=== PATIENT | female | born 1975 | race Caucasian/White ===

== ENCOUNTER 2020-11-03 09:35 | Outpatient (REF) | payer OTHER, SELFPAY ==
--- NOTE | 2020-11-03 09:45 | XR_ITS ---
EXAMINATION: XR CHEST CLINICAL INFORMATION: Shortness of breath COMPARISON: None TECHNIQUE: 2 views of the chest were obtained. FINDINGS: No significant abnormality is noted involving the heart, lungs, mediastinum, bony thorax or soft tissues. XR/XR chest 2V IMPRESSION: No acute disease within the chest.
[2020-11-03 14:01] LABS: Hematocrit 39.9 % (37-47); Hemoglobin 13.1 g/dl (12.0-16.0); Mean Corpuscular HGB Conc 32.8 g/dl (31.0-35.0); Mean Corpuscular Hemoglobin 30.2 pg (27.0-33.0); Mean Corpuscular Volume 91.9 fL (80-98); Mean Platelet Volume 11.2 fL (9.4-12.3); Platelet Count 203 X10*3/uL (160-400); Red Blood Count 4.34 X10*6/uL (4.20-5.50); Red Cell Distribution Width 12.7 % (11.0-16.0); White Blood Count 5.8 X10*3/uL (4.8-10.8)
[2020-11-03 14:14] LABS: D Dimer < 200 NG/ML
[2020-11-03 14:47] LABS: Anion Gap 13 (12-20); Blood Urea Nitrogen 22 mg/dL (9-16); Calcium 9.3 mg/dL (8.4-10.2); Carbon Dioxide 29 mmol/L (22-29); Chloride 102 mmol/L (96-108); Estimated Glomerular Filt Rate > 60; Glucose Random 99 mg/dL (60-115); Potassium 4.6 mmol/l (3.3-5.1); Sodium 139 mmol/L (135-145)
== END 2020-11-03 09:36 | disposition home or self-care (01) ==
LOC: HO.HMGCX 09:35
PROVIDERS: PCP Internal Medicine; Visit Provider Internal Medicine
DX: R06.02 Shortness of breath (principal)
CPT/HCPCS: 36415; 71046; 80048; 85027; 85379

== ENCOUNTER 2020-11-05 08:49 | Outpatient (REF) | payer OTHER, SELFPAY ==
--- NOTE | 2020-11-05 | MM_ITS ---
EXAMINATION: MM SCREENING DIGITAL BREAST TOMOSYNTHESIS, BILATERAL CLINICAL INFORMATION: Screening. Asymptomatic. The lifetime risk of breast cancer based on the Tyrer-Cuzick Model is 10%. COMPARISON: Mammography: 08/15/2019, outside exams 2D images dated 03/29/2017, 11/19/2016, 02/10/2016 ([facility], [place]). TECHNIQUE: Digital breast tomosynthesis is performed in both the craniocaudal and mediolateral oblique views along with computer-aided detection (CAD). Synthesized 2D images are generated from the tomosynthesis. FINDINGS: There are scattered areas of fibroglandular density (ACR BI-RADS breast composition Category b). The left breast shows no developing density or interval mass or architectural abnormality. Neither breast shows abnormal calcifications. The axilla and skin contours are unremarkable. The right MLO tomography is subtle converging radiating lines mid lower quadrant without correlate on CC view. No central epicenter. Finding likely related to summation artifact or incompletely compressed glandular tissue. Patient will be recalled in order to fully characterize and exclude architectural abnormality. Remainder of the right breast is unremarkable. MM/MM tomosynthesis screening BI IMPRESSION: 1. Right: Question of architectural changes lower right breast on MLO tomography, suspect artifact. 2. Left: No mammographic evidence of malignancy. ASSESSMENT: BI-RADS 0: Incomplete - Need Additional Imaging Evaluation RECOMMENDATION: 1. Additional views of the right breast (3-D spot MLO, 3-D ML). 2. Targeted ultrasound if warranted after review of the additional views. 3. Radiology department staff will contact the patient for additional imaging. This patient's information was entered into a reminder system with a target due date for their next mammogram.
== END 2020-11-05 08:50 | disposition home or self-care (01) ==
LOC: HO.MAMMO 08:49
PROVIDERS: PCP Internal Medicine; Visit Provider Internal Medicine
DX: Z12.31 Encounter for screening mammogram for malignant neoplasm of breast (principal)
CPT/HCPCS: 77063; 77067

== ENCOUNTER → 2020-11-18 07:47 | Outpatient (BNV) | payer OTHER, SELFPAY | PROVIDERS: PCP Internal Medicine; Visit Provider Internal Medicine Medical Oncology | DX: Z85.038 Personal history of other malignant neoplasm of large intestine (principal); Z86.718 Personal history of other venous thrombosis and embolism | CPT/HCPCS: 99213; 99214 ==

== ENCOUNTER → 2020-12-02 14:46 | Outpatient (BNVA) | payer OTHER, SELFPAY | PROVIDERS: PCP Internal Medicine; Visit Provider Internal Medicine ==

== ENCOUNTER 2020-12-04 12:47 | Outpatient (REF) | payer OTHER, SELFPAY ==
--- NOTE | 2020-12-04 | MM_ITS ---
EXAMINATION: MM DIAGNOSTIC DIGITAL BREAST TOMOSYNTHESIS, RIGHT CLINICAL INFORMATION: Recall from screening for question of subtle radiating lines mid lower right breast limited to MLO view. TC score 10%. No known family history breast cancer. Personal history colon cancer. COMPARISON: Mammography: 11/05/2020, 08/15/2019, outside exams 2D images dated 03/29/2017, 11/19/2016, 02/10/2016 ([facility], [place]). TECHNIQUE: Digital breast tomosynthesis is performed. 2D images are generated from the tomosynthesis. The following views are obtained: Spot MLO, standard ML FINDINGS: There are scattered areas of fibroglandular density (ACR BI-RADS breast composition Category b). Additional views show no architectural abnormality or converging radiating lines mid lower right breast. There is no mass or architectural abnormality or developing density. Results are discussed with the patient at time of visit. MM/MM tomosynthesis added views R IMPRESSION: Additional views show no significant changes from prior studies. ASSESSMENT: BI-RADS 2: Benign RECOMMENDATION: Routine annual mammography screening. This patient's information was entered into a reminder system with a target due date for their next mammogram.
== END 2020-12-04 12:48 | disposition home or self-care (01) ==
LOC: HO.MAMMO 12:47
PROVIDERS: PCP Internal Medicine; Visit Provider Internal Medicine
DX: R92.8 Other abnormal and inconclusive findings on diagnostic imaging of breast (principal)
CPT/HCPCS: 77061; 77062; 77065; 77066

== ENCOUNTER 2021-01-08 11:21 | Outpatient (REF) | payer OTHER, SELFPAY ==
[2021-01-09 13:26] LABS: COVID-19 Test Negative (Negative)
== END 2021-01-08 11:22 | disposition home or self-care (01) ==
LOC: HO.EMPCOV 11:21
PROVIDERS: Visit Provider Internal Medicine
DX: Z20.822 Contact with and (suspected) exposure to COVID-19 (principal)
CPT/HCPCS: 36415; 87635; C9803

== ENCOUNTER → 2021-01-15 12:58 | Outpatient (REF) | payer OTHER, SELFPAY ==
--- NOTE | 2021-01-15 13:01 | HM_ITS ---
TEST PERFORMED: Cardiac event monitor. INDICATION: Palpitations. ENROLLMENT PERIOD: 01/15/2021 to 02/14/2021 - 30 days. FINDINGS: In the above monitoring period, the underlying rhythm was sinus. The rates ranged from 69 beats per minute to 88 beats per minute. In several of the times when patient had complained of racing and fluttering, underlying rhythm was sinus. There was a rare PAC and PVC noted. During these times, she did mention palpitations. Otherwise, no significant arrhythmias. CONCLUSION: Study positive for one isolated PVC and an isolated PAC, which may be causing her symptoms ( if more frequent at other times when not monitored). Otherwise unremarkable. MD BRIGETTE Rodriguez/EDWAR / [id number] MTDD
--- NOTE | 2021-01-15 13:01 | CA_ITS ---
Transthoracic Echocardiogram Patient (Last, First, Middle): Katlyn Shaikh, Gender: Female Date of : 1975 Age: 45 Procedure Date: 01/15/2021 Procedure Type: Transthoracic Echocardiogram Location: OP Height: 175.26 cm Weight: 83.92 kg BSA: 2.00 m2 Heart Rate: bpm BP: 108 / 58 mmHg Investigator Utility Bill Complaints: BRONSON Metz MD: French Pugh MD Seasoning Mixer: Enrike Nails MD Symptoms: R06.02 - Shortness of breath Study Quality: Fair ECG Rhythm: Sinus Conclusions: - Essentially normal study Findings Left Ventricle Normal left ventricular size, thickness, and systolic function. The visually estimated ejection fraction is between 60-65%. Diastolic function is normal for age. Right Ventricle Normal right ventricular cavity size and systolic function. Atria Both atria are normal in size. Aortic Valve Normal aortic valve structure and function. Mitral Valve Normal mitral valve structure and function. There is trace mitral valve regurgitation. There is no mitral valve stenosis. Pulmonic Valve The pulmonic valve is likely normal. Tricuspid Valve Normal tricuspid valve structure. There is trace tricuspid valve regurgitation. The right ventricular systolic pressure is normal. The right ventricular systolic pressure is 15 mmHg. Normal right atrial pressure. There is no evidence of pulmonary hypertension. Great Vessels All visible segments of the aorta are normal in size. The pulmonary artery was not well visualized. Venous The inferior vena cava is normal in size and collapses greater than 50% with inspiration. Pericardium/Pleural There is no evidence of pericardial effusion. Prior Study Comparison No prior study available for comparison. Measurements 2D Linear Measurements IVSd: 0.85 0.6-0.9/0.6-1.0 cm LVIDd: 5.68 3.9-5.3/4.2-5.9 cm LVIDd Index: 2.84 2.4-3.2/2.2-3.1 cm/m2 LVIDs: 3.67 2.0-3.6 cm LVPWd: 0.89 0.7-1.1 cm Ao Root: 3.70 2.1-3.5 cm LA Diam: 3.30 2.7-3.8/3.0-4.0 cm LAIDs Index: 1.65 1.5-2.3 cm/m2 LV Mass: 234.11 67-162/88-224 g LV Mass Index: 117.05 43-95/49-115 g/m2 LVOT Diam: 2.00 3.0+(-)1.3 cm 2D Systolic Function EF 4C: 62.70 >55% EF 2C: 69.10 >55% EF BiP: 67.30 >55% Mitral Valve MV Pk E: 0.91 MV PK A: 0.67 MV Decel Time: 275.00 E/A: 1.40 E'Lateral: 14.60 E'Medial: 7.64 E/E' Med: 11.90 E/E' Lat: 6.20 PHT: 80.00 MVA PHT: 2.75 Decel [place]: 3.32 Aortic Valve AoV Pk Silvino: 1.56 AoV Mn Silvino: 1.10 AoV VTI: 0.38 AoV Pk Grad: 10.00 Aov Mn Grad: 5.00 JERMAIN Cont.VTI: 2.10 LVOT LVOT Pk Silvino: 1.11 LVOT Mn Silvino: 0.76 LVOT VTI: 0.25 LVOT Pk Grad: 5.00 LVOT Mn Grad: 3.00 LVOT Diam: 2.00 LVOT Area: 3.14 Diastolic Function MV Pk E: 0.91 MV Pk A: 0.67 E/A: 1.40 E'Medial: 7.64 E/E' Med: 11.90 E' Laterial: 14.60 E/E' Lat: 6.20 Tricuspid Valve TR Pk Silvino: 1.72 TR Pk Grad: 12.00 RA Press: 3.00 RVSP: 15.00 Great Vessels Aorta Ao Root-2D: 3.70 2.0-3.7 cm Ao Asc: 3.30 2.1-3.4 cm Ao Arch: 3.00 Updated in Other Vendor System with Status of Final Enrike Nails MD electronically signed on 01/15/2021 3:55:40 PM with status of Final
== END ==
LOC: HO.CARD 12:58
PROVIDERS: Visit Provider Internal Medicine
DX: R06.02 Shortness of breath (principal); R00.2 Palpitations
CPT/HCPCS: 93270; 93272; 93306

== ENCOUNTER → 2021-02-13 08:04 | Outpatient (BNVA) | payer OTHER, SELFPAY | PROVIDERS: Visit Provider Advanced Practice Midwife | DX: N90.89 Other specified noninflammatory disorders of vulva and perineum (principal) | CPT/HCPCS: 56501 ==

== ENCOUNTER → 2021-02-25 15:12 | Outpatient (BNVA) | payer OTHER, SELFPAY | PROVIDERS: PCP Internal Medicine; Visit Provider Internal Medicine ==

== ENCOUNTER → 2021-02-27 08:05 | Outpatient (BNVA) | payer OTHER, SELFPAY | PROVIDERS: PCP Internal Medicine; Visit Provider Advanced Practice Midwife ==

== ENCOUNTER 2021-03-25 11:42 | Outpatient (REF) | payer OTHER, SELFPAY ==
[2021-03-25 15:23] LABS: CT PCR NOT DETECTED (Not Detect.); NG PCR NOT DETECTED (Not Detect.)
[2021-03-26 09:38] LABS: BV Int Neg Control Negative (Negative); BV Int Pos Control Positive (Positive)
== END 2021-03-25 11:43 | disposition home or self-care (01) ==
LOC: HO.LAB 11:42
PROVIDERS: PCP Internal Medicine; Visit Provider Advanced Practice Midwife
DX: N89.8 Other specified noninflammatory disorders of vagina (principal); R10.2 Pelvic and perineal pain
CPT/HCPCS: 87480; 87491; 87510; 87591; 87660

== ENCOUNTER → 2021-05-21 13:01 | Outpatient (BNVA) | payer OTHER, SELFPAY | PROVIDERS: PCP Internal Medicine; Referring Provider Internal Medicine; Visit Provider Obstetrics & Gynecology ==

== ENCOUNTER 2021-05-25 08:22 | Outpatient (REF) | payer OTHER, SELFPAY ==
[2021-05-25 14:20] LABS: Hematocrit 35.9 % (37-47); Mean Corpuscular HGB Conc 33.4 g/dl (31.0-35.0); Mean Corpuscular Hemoglobin 30.4 pg (27.0-33.0); Mean Corpuscular Volume 90.9 fL (80-98); Mean Platelet Volume 10.6 fL (9.4-12.3); Platelet Count 181 X10*3/uL (160-400); Red Blood Count 3.95 X10*6/uL (4.20-5.50); Red Cell Distribution Width 12.3 % (11.0-16.0); White Blood Count 5.3 X10*3/uL (4.8-10.8)
[2021-05-25 15:02] LABS: TSH reflex Free T4 0.96 uIU/mL (0.32-4.0)
[2021-05-25 15:19] LABS: HCG Quantitative < 2 mIU/mL
== END 2021-05-25 08:23 | disposition home or self-care (01) ==
LOC: HO.LAB 08:22
PROVIDERS: PCP Internal Medicine; Visit Provider Obstetrics & Gynecology
DX: N93.9 Abnormal uterine and vaginal bleeding, unspecified (principal)
CPT/HCPCS: 36415; 84443; 84702; 85027

== ENCOUNTER 2021-06-04 07:49 | Outpatient (REF) | payer OTHER, SELFPAY ==
[2021-06-04 09:02] LABS: Alanine Aminotransferase 16 U/L (0-31); Albumin Level 4.6 g/dL (3.5-5.0); Alkaline Phosphatase 49 U/L (39-117); Aspartate Amino Transferase 17 U/L (5-31); Bilirubin Direct 0.3 mg/dL (0.0-0.5); Bilirubin Total 0.8 mg/dL (0.0-1.0); Total Protein 7.3 g/dL (6.5-8.0)
== END 2021-06-04 07:50 | disposition home or self-care (01) ==
LOC: HO.LAB 07:49
PROVIDERS: PCP Internal Medicine; Visit Provider Podiatrist
DX: B35.1 Tinea unguium (principal)
CPT/HCPCS: 36415; 80076

== ENCOUNTER 2021-06-11 10:53 | Outpatient (REF) | payer OTHER, SELFPAY ==
--- NOTE | ~2021-06-11 | US_ITS ---
EXAMINATION: PELVIC ULTRASOUND CLINICAL INFORMATION: Abnormal uterine vaginal bleeding COMPARISON: Previous pelvic ultrasound July 2020 TECHNIQUE: Transabdominal and transvaginal pelvic ultrasound was performed. Transvaginal exam was performed for better visualization of the uterus and ovaries. FINDINGS: The uterus is anteverted and measures 7 x 3.2 x 4.5 cm in dimension. There is an IUD in the uterus in satisfactory position. The endometrium does not appear thickened measuring 0.5 cm. No focal uterine lesion is seen. There are nabothian cysts in the cervix. The right ovary is upper normal in size and measures 3.9 x 2.4 x 2.9 cm. there is a 2.5 x 2.4 x 2.6 cm simple right ovarian cyst. The left ovary is normal in size and measures 3 x 2 x 2.5 cm. There are 2 simple left ovarian cysts measuring 1.8 x 1.5 x 2.7 cm and 1.7 x 1.4 x 1.6 cm. There is no fluid in the pelvis. US/US pelvic and transvaginal IMPRESSION: IUD in the uterus in satisfactory position. Bilateral ovarian simple cysts, largest on the right measuring 2.5 x 2.4 x 2.6 cm.
== END 2021-06-11 10:54 | disposition home or self-care (01) ==
LOC: HO.US 10:53
PROVIDERS: Visit Provider Obstetrics & Gynecology
DX: N93.9 Abnormal uterine and vaginal bleeding, unspecified (principal)
CPT/HCPCS: 76830; 76856

== ENCOUNTER 2021-06-23 14:00 | Outpatient (REF) | payer OTHER, SELFPAY | END 2021-06-23 14:01 | disposition home or self-care (01) | LOC: HO.LAB 14:00 | PROVIDERS: PCP Internal Medicine; Visit Provider Obstetrics & Gynecology | DX: N92.1 Excessive and frequent menstruation with irregular cycle (principal) | CPT/HCPCS: 58100; 88305 ==

== ENCOUNTER → 2021-07-07 15:00 | Outpatient (BNVA) | payer OTHER, SELFPAY | PROVIDERS: Visit Provider Obstetrics & Gynecology | DX: N92.1 Excessive and frequent menstruation with irregular cycle (principal) | CPT/HCPCS: 58100 ==

== ENCOUNTER → 2021-07-29 15:40 | Outpatient (BNVA) | payer OTHER, SELFPAY | PROVIDERS: Visit Provider Obstetrics & Gynecology ==

== ENCOUNTER 2021-10-10 13:12 | Outpatient (REF) | payer OTHER, SELFPAY | END 2021-10-10 13:13 | disposition home or self-care (01) | LOC: HO.LNP 13:12 | PROVIDERS: Visit Provider Physician Assistant Medical | DX: Z20.822 Contact with and (suspected) exposure to COVID-19 (principal) | CPT/HCPCS: U0003; U0005 ==

== ENCOUNTER 2021-12-07 07:33 | Outpatient (REF) | payer OTHER, SELFPAY ==
--- NOTE | ~2021-12-07 | MM_ITS ---
EXAMINATION: MM SCREENING DIGITAL BREAST TOMOSYNTHESIS, BILATERAL CLINICAL INFORMATION: Screening. Asymptomatic. The lifetime risk of breast cancer based on the Tyrer-Cuzick Model is 11%. COMPARISON: Mammography: 12/04/2020, 10/26/2020, 08/15/2019; outside exam 03/29/2017 ([facility]). TECHNIQUE: Digital breast tomosynthesis is performed in both the craniocaudal and mediolateral oblique views along with computer-aided detection (CAD). Synthesized 2D images are generated from the tomosynthesis. FINDINGS: There are scattered areas of fibroglandular density (ACR BI-RADS breast composition Category b). There are no significant masses, abnormal calcifications, or other abnormalities. Parenchymal pattern is similar to prior studies. There is no developing density or architectural abnormality. The axilla and skin contours are unremarkable. No significant changes. MM/MM tomosynthesis screening BI IMPRESSION: No mammographic evidence of malignancy. ASSESSMENT: BI-RADS 1: Negative RECOMMENDATION: Routine annual mammography screening. This patient's information was entered into a reminder system with a target due date for their next mammogram.
== END 2021-12-07 07:34 | disposition home or self-care (01) ==
LOC: HO.MAMMO 07:33
PROVIDERS: PCP Internal Medicine; Visit Provider Internal Medicine
DX: Z12.31 Encounter for screening mammogram for malignant neoplasm of breast (principal)
CPT/HCPCS: 77063; 77067

== ENCOUNTER 2022-05-06 13:56 | Outpatient (REF) | payer OTHER, SELFPAY ==
--- NOTE | ~2022-05-06 | XR_ITS ---
EXAMINATION: XR CHEST CLINICAL INFORMATION: Chronic fatigue, unspecified. COMPARISON: Chest radiographs 11/03/2020. TECHNIQUE: 2 views of the chest were obtained. FINDINGS: Lungs are clear. No airspace consolidation or effusion. Heart size normal. The hilar and mediastinal contours are normal. No acute bony abnormality. Again, there is mild loss of height midthoracic vertebral body. No paraspinal soft tissue swelling. No disc narrowing or spondylolisthesis. XR/XR chest 2V IMPRESSION: Unremarkable examination.
[2022-05-06 14:22] LABS: Hematocrit 38.1 % (37.0-47.0); Hemoglobin 12.8 g/dl (12.0-16.0); Mean Corpuscular HGB Conc 33.6 g/dl (31.0-35.0); Mean Corpuscular Hemoglobin 30.4 pg (27.0-33.0); Mean Corpuscular Volume 90.5 fL (80.0-98.0); Mean Platelet Volume 10.1 fL (9.4-12.3); Platelet Count 215 X10*3/uL (160-400); Red Blood Count 4.21 X10*6/uL (4.20-5.50); Red Cell Distribution Width 12.7 % (11.0-16.0); White Blood Count 5.5 X10*3/uL (4.8-10.8)
[2022-05-06 14:33] LABS: D Dimer High Sensitivity < 150 NG/ML
[2022-05-06 14:53] LABS: Alanine Aminotransferase 20 U/L (0-31); Albumin Level 4.6 g/dL (3.5-5.0); Alkaline Phosphatase 55 U/L (39-117); Anion Gap 10 (12-20); Aspartate Amino Transferase 18 U/L (5-31); Bilirubin Direct 0.3 mg/dL (0.0-0.5); Bilirubin Total 0.8 mg/dL (0.0-1.0); Blood Urea Nitrogen 13 mg/dL (9-16); Calcium 9.4 mg/dL (8.4-10.2); Carbon Dioxide 28 mmol/L (22-29); Chloride 103 mmol/L (96-108); Estimated Glomerular Filt Rate > 60; Glucose Random 120 mg/dL (60-115); Iron 100 mcg/dL (30-160); Percent Iron Saturation 27 % (15-50); Potassium 4.4 mmol/L (3.3-5.1); Sodium 137 mmol/L (135-145); Total Iron Binding Capacity 373 mcg/dL (228-428); Total Protein 7.4 g/dL (6.5-8.0); Unsaturated Iron Binding 273 ug/dL
[2022-05-06 15:05] LABS: TSH reflex Free T4 1.06 uIU/mL (0.32-4.0)
[2022-05-06 15:39] LABS: Folate 15.3 ng/mL (> or = 4.0); Vitamin B12 417 pg/mL (200-900)
[2022-05-07 17:07] LABS: Lyme Abs Screen <0.90 index
== END 2022-05-06 13:57 | disposition home or self-care (01) ==
LOC: HO.LAB 13:56
PROVIDERS: Visit Provider Physician Assistant
DX: R07.81 Pleurodynia (principal); D50.9 Iron deficiency anemia, unspecified; R53.82 Chronic fatigue, unspecified; U09.9 Post COVID-19 condition, unspecified; E53.8 Deficiency of other specified B group vitamins
CPT/HCPCS: 36415; 71046; 80048; 80076; 82607; 82746; 83540; 84443; 85027; 85379; 86617; 86618

== ENCOUNTER 2022-05-31 14:53 | Outpatient (REF) | payer OTHER, SELFPAY ==
[2022-05-31 16:36] LABS: Syphilis Screen Nonreactive (Nonreactive)
[2022-06-01 07:11] LABS: HBsAGNum1 0.46 S/CO (0.00-0.99); HIV AB/AG Nonreactive (Nonreactive); HIV Num 1 0.05 S/CO (0.00-0.99); Hepatitis B Surface Antigen Negative (Negative); ~HepC Num1 0.06 S/CO (0.00-0.79); ~Hepatitis C Antibody Nonreactive (Nonreactive)
[2022-06-01 09:10] LABS: BV Int Neg Control Negative (Negative); BV Int Pos Control Positive (Positive)
[2022-06-01 09:53] LABS: CT PCR NOT DETECTED (Not Detect.)
[2022-06-01 09:54] LABS: NG PCR NOT DETECTED (Not Detect.)
== END 2022-05-31 14:54 | disposition home or self-care (01) ==
LOC: HO.LAB 14:53
PROVIDERS: PCP Internal Medicine; Visit Provider Obstetrics & Gynecology
DX: Z11.3 Encounter for screening for infections with a predominantly sexual mode of transmission (principal); Z11.4 Encounter for screening for human immunodeficiency virus [HIV]; Z20.2 Contact with and (suspected) exposure to infections with a predominantly sexual mode of transmission
CPT/HCPCS: 36415; 86780; 86803; 87340; 87389; 87480; 87491; 87510; 87591; 87660

== ENCOUNTER 2022-07-23 06:59 | Outpatient (REF) | payer OTHER, SELFPAY ==
--- NOTE | ~2022-07-23 | XR_ITS ---
EXAMINATION: XR SHOULDER, RIGHT CLINICAL INFORMATION: Pain. COMPARISON: None TECHNIQUE: AP external rotation, Grashey, scapular Y, and axillary views of the right shoulder. FINDINGS: The bones and soft tissues are normal. No fracture. Glenohumeral and acromioclavicular alignment is anatomic with normal joint space. No abnormal soft tissue calcifications. XR/XR shoulder RT min 2V IMPRESSION: Normal right shoulder.
--- NOTE | ~2022-07-23 | XR_ITS ---
EXAMINATION: XR WRIST, RIGHT CLINICAL INFORMATION: Pain. COMPARISON: None TECHNIQUE: PA, lateral, and oblique views of the right wrist are submitted, together with a dedicated navicular view. FINDINGS: The bones and soft tissues are normal. No fracture. Alignment is anatomic with normal joint spaces. No erosions or abnormal soft tissue calcifications. XR/XR wrist RT 2V IMPRESSION: Normal right wrist.
[2022-07-26 14:41] LABS: Cyclic Citrullinated Peptide <16 UNITS
[2022-07-26 23:21] LABS: Anti DNA DS Antibody <1 IU/mL
[2022-07-27 02:57] LABS: CRP High Sensitivity >10.0 mg/L
[2022-07-27 15:21] LABS: Anti Nuclear Antibody Screen NEGATIVE (NEGATIVE)
== END 2022-07-23 07:00 | disposition home or self-care (01) ==
LOC: HO.XRAY 06:59
PROVIDERS: PCP Internal Medicine; Visit Provider Internal Medicine
DX: M25.531 Pain in right wrist (principal); M25.511 Pain in right shoulder
CPT/HCPCS: 36415; 73030; 73100; 86038; 86039; 86141; 86200; 86225

== ENCOUNTER 2022-07-29 08:17 | Outpatient (REF) | payer OTHER, SELFPAY ==
--- NOTE | 2022-07-29 08:20 | EMG_ITS ---
Right median and ulnar motor and sensory studies were performed. Right radial sensory study was performed and paraspinal muscles were tested with a needle. IMPRESSION: 1. Mild right median neuropathy across carpal tunnel. 2. Mild right ulnar neuropathy across cubital tunnel. MD BYRON Ca/EDWAR / [id number]
== END 2022-07-29 08:18 | disposition home or self-care (01) ==
LOC: HO.NEURO 08:17
PROVIDERS: Visit Provider Internal Medicine
DX: R20.2 Paresthesia of skin (principal)
CPT/HCPCS: 95886; 95909

== ENCOUNTER 2022-08-19 07:10 | Outpatient (REF) | payer OTHER, SELFPAY ==
[2022-08-19 07:17] LABS: MANUAL DIFF FLAG NO
[2022-08-19 07:48] LABS: Basophils Percent Auto 0.6 % (0-2); Eosinophils Percent Auto 0.6 % (0-4); Hematocrit 38.1 % (37.0-47.0); Hemoglobin 12.8 g/dl (12.0-16.0); Imm Gran Abs Auto 0.01 X10*3/uL (0.00-0.03); Imm Gran Pct Auto 0.3 % (0.0-0.4); Lymphocytes Absolute Auto 0.7 X10*3/uL (1.2-4.9); Lymphocytes Percent Auto 18.8 % (20-40); Mean Corpuscular HGB Conc 33.6 g/dl (31.0-35.0); Mean Corpuscular Hemoglobin 30.2 pg (27.0-33.0); Mean Corpuscular Volume 89.9 fL (80.0-98.0); Mean Platelet Volume 10.5 fL (9.4-12.3); Monocytes Absolute Auto 0.4 X10*3/uL (0.1-1.2); Monocytes Percent Auto 11.9 % (2-11); Neutrophils Absolute Auto 2.5 x10*3/uL (2.0-8.3); Neutrophils Percent Auto 67.8 % (45-73); Platelet Count 148 X10*3/uL (160-400); Red Blood Count 4.24 X10*6/uL (4.20-5.50); Red Cell Distribution Width 12.7 % (11.0-16.0); White Blood Count 3.6 X10*3/uL (4.8-10.8)
[2022-08-19 08:10] LABS: Appearance Urine Clear; Color Urine Yellow; Glucose Urine UA Negative (Negative); Leukocyte Esterase Urine Trace (Negative); Nitrite Urine Negative (Negative); Specific Gravity - Urine 1.015 (1.005-1.025); UMIC TRIGGER UA YES; Urine Blood Negative (Negative); Urine Ketones Negative (Negative); Urine Protein Negative (Neg-Trace)
[2022-08-19 08:14] LABS: Alanine Aminotransferase 21 U/L (0-31); Albumin Level 4.7 g/dL (3.5-5.0); Alkaline Phosphatase 51 U/L (39-117); Anion Gap 16 (12-20); Aspartate Amino Transferase 20 U/L (5-31); Blood Urea Nitrogen 15 mg/dL (9-16); C Reactive Protein 0.11 mg/dL (< or = 0.50); Calcium 9.4 mg/dL (8.4-10.2); Carbon Dioxide 25 mmol/L (22-29); Chloride 101 mmol/L (96-108); Estimated Glomerular Filt Rate > 60; Glucose Random 103 mg/dL (60-115); Potassium 4.2 mmol/L (3.3-5.1); Rheumatoid Factor < 15.0 IU/mL (<15.0); Sodium 138 mmol/L (135-145); Total Protein 7.4 g/dL (6.5-8.0)
[2022-08-19 08:16] LABS: Bacteria Urine None Seen (None Seen); Hyaline Casts Urine 0-2 /LPF (0-2); RBC Urine 0-2 /HPF (0-2); WBC Urine 0-5 /HPF (0-5)
[2022-08-19 08:36] LABS: Erythrocyte Sedimentation Rate 7 MM/HR (0-20)
[2022-08-19 09:15] LABS: Creatinine Urine 90.76 mg/dL; Total Protein Urine Random < 7 mg/dL (<12)
[2022-08-21 11:28] LABS: Complement C3 94 mg/dL (83-193)
[2022-08-24 14:22] LABS: Antibody to SS-A Antigen <1.0 NEG AI (<1.0 NEG); Antibody to SS-B Antigen <1.0 NEG AI (<1.0 NEG); SM/Ribonucleoprotein Ab <1.0 NEG AI (<1.0 NEG); Smith Protein <1.0 NEG AI (<1.0 NEG)
[2022-08-24 14:32] LABS: IgA 362 mg/dL (47-310); IgG 1115 mg/dL (600-1640); IgM 145 mg/dL (50-300)
[2022-08-24 23:21] LABS: Prot Elec - Albumin 4.5 g/dL (3.8-4.8); Prot Elec - Alpha1 0.2 g/dL (0.2-0.3); Prot Elec - Alpha2 0.6 g/dL (0.5-0.9); Prot Elec - Beta 1 0.5 g/dL (0.4-0.6); Prot Elec - Beta 2 0.3 g/dL (0.2-0.5); Prot Elec - Total Protein 7.2 g/dL (6.1-8.1)
[2022-08-30 18:11] LABS: EJ Autoantibodies NOT DETECTED (NOT DETECTED); JO-1 Antibody <1.0 NEG AI (<1.0 NEGATIVE); MI 2 Autoantibodies NOT DETECTED (NOT DETECTED); OJ Autoantibodies NOT DETECTED (NOT DETECTED); PL 12 Autoantibodies NOT DETECTED (NOT DETECTED); PL 7 Autoantibodies NOT DETECTED (NOT DETECTED)
== END 2022-08-19 07:11 | disposition home or self-care (01) ==
LOC: HO.LAB 07:10
PROVIDERS: PCP Internal Medicine; Visit Provider Student in an Organized Health Care Education/Training Program
DX: M25.50 Pain in unspecified joint (principal); I82.402 Acute embolism and thrombosis of unspecified deep veins of left lower extremity; M79.10 Myalgia, unspecified site; Z23 Encounter for immunization
CPT/HCPCS: 36415; 80053; 81001; 82550; 82784; 84156; 84165; 85025; 85652; 86140; 86160; 86235; 86334; 86431; 90686

== ENCOUNTER 2022-11-03 07:17 | Day surgery (SDC) | payer OTHER, SELFPAY ==
--- NOTE | 2022-11-03 06:16 | MHC.SHP ---
Pre-Procedural Eval Section A Date of Service: 11/03/22 Section B Chief Complaint: Anemia, Details of Present Illness: hx of anemia, abdominal pain, abnormal bowel habits Relevant Family History (Specify if Yes): No Relevant Social History: Other (specify) (vaping) Present Medications: see Short Stay Collaborative assessment Medical History: Significant History (Breast pain Colon cancer COVID-19 DVT (deep venous thrombosis) PAC (premature atrial contraction) PVC (premature ventricular contraction) Shortness of breath) History of Previous Operations: Relevant previous surgery/procedure and date(s) (H/O knee surgery History of colon surgery) Allergies: Allergies Allergy/AdvReac Type Severity Reaction Status Date / Time latex [LATEX] Allergy Unknown RASH Verified 10/06/22 16:15 levofloxacin [From LEVAQUIN] Allergy Unknown AGITATION Verified 10/06/22 16:15 morphine [MORPHINE] Allergy Unknown HEADACHES Verified 10/06/22 16:15 shrimp [SHRIMP] Allergy Unknown HIVES Verified 10/06/22 16:15 Sulfa (Sulfonamide Allergy Unknown HIVES Verified 10/06/22 16:15 Antibiotics) [SULFA (SULFONAMIDE ANTIBIOTICS)] Review of Systems Sugical H&P ROS: Negative: Constitution, Cardiovascular, Respiratory, Neurological, Psychiatric, Hem-Onc, Allergic/Immunologic, Gastrointestinal, Genitourinary, Musculoskeletal, Integumentary, Endocrine and Eyes/Ears/Nose/Throat Exam Surgical H&P Exam: Normal: HEENT, Normal: Heart, Normal: Lungs, Normal: Extremities, Normal: Skin and Normal: Neurological and Significant Findings: Abdomen (mildyl tender upper abdomen) Plan Diagnosis/Plan: Unchanged I have reviewed the history and physical and performed a pertinent physical examination on my patient. No changes have occurred unless specified. EGD and colonoscopy for assessment of sx. Time Spent With Patient Time: Total time managing care of this patient today ____ minutes.
[2022-11-03 07:40] VITALS: BMI 27.1
[2022-11-03 07:42] LABS: UPreg QC Valid YES; Urine Pregnancy NEGATIVE (NEGATIVE)
[2022-11-03 07:55] VITALS: BP 122/79; PULSE 66; RESP 18; TEMP 36.8; O2SAT 100
[2022-11-03 07:57] VITALS: BMI 27.1
--- NOTE | 2022-11-03 08:13 | P.CONAN_ITS ---
[facility] Active Problems Active Problems: All Active Problems (Updated 10/06/22 @ 16:18 by Navneet Anguiano PA-C) Sinus infection (Acute) Myalgia (Acute) Right wrist pain (Acute) Paresthesia of both hands (Acute) Polyarthralgia (Acute) Right shoulder pain (Acute) Screen for STD (sexually transmitted disease) (Acute) Retained tampon (Acute) Pleuritic chest pain (Acute) COVID-19 long hauler manifesting chronic fatigue (Acute) COVID-19 (Acute) Conjunctivitis (Acute) Metrorrhagia (Acute) Well woman exam (Acute) Shortness of breath (Acute) Breast pain (Acute) Colon cancer (Acute) Left leg DVT (Acute) Heart palpitations (Acute) PVC (premature ventricular contraction) (Acute) PAC (premature atrial contraction) (Acute) Past Medical History Medical History Breast pain Colon cancer COVID-19 DVT (deep venous thrombosis) PAC (premature atrial contraction) PVC (premature ventricular contraction) Shortness of breath Family History Family History Mother High blood pressure COPD (chronic obstructive pulmonary disease) History of four vessel coronary artery bypass graft Mental health disorder Father High blood pressure Family history of problems with anesthesia: No Surgical History Surgical History H/O knee surgery History of colon surgery History of Problems with Anesthesia: No Social History Social History Housing: House Alcohol intake: current Alcohol intake frequency: holidays/special occasions only Alcohol type: wine Patient Tobacco Use Status: Former Tobacco user Quit Date: 13 years ago Tobacco use type: Smokeless Tobacco e-Cigarette/Vaping Use: Currently Using Date Education Initiated: 11/03/22 Second Hand Smoke Exposure: No Use of substances other than those prescribed or required for medical reasons: No Are you DNR?: No Advance Directives: No Advance Directives Information Provided: Yes service: No Current occupational status: employed 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 Cognitive needs: No Hearing needs: No Vision needs: No Meds Allergies Allergy/AdvReac Type Severity Reaction Status Date / Time latex [LATEX] Allergy Unknown RASH Verified 10/06/22 16:15 levofloxacin [From LEVAQUIN] Allergy Unknown AGITATION Verified 10/06/22 16:15 morphine [MORPHINE] Allergy Unknown HEADACHES Verified 10/06/22 16:15 shrimp [SHRIMP] Allergy Unknown HIVES Verified 10/06/22 16:15 Sulfa (Sulfonamide Allergy Unknown HIVES Verified 10/06/22 16:15 Antibiotics) [SULFA (SULFONAMIDE ANTIBIOTICS)] Active Medications: Current Medications Lactated Ringer's (Lr) 1,000 mls @ 100 mls/hr IVCONT .Q10H [facility] Home Medications Medication Instructions Recorded Confirmed Last Taken Type cholestyramine (with sugar) 4 gram 4 g PO DAILY 05/19/21 10/06/22 Unknown History powder for susp in a packet fluticasone propionate 50 1 spray intranasal DAILY PRN Nasal 05/19/21 10/06/22 Unknown History mcg/actuation nasal Congestion spray,suspension levonorgestrel 20 mcg/24 hours (8 20 mcg intrauterine DIRECTED 05/21/21 10/06/22 Unknown History yrs) 52 mg intrauterine device contraception (Mirena) rivaroxaban 20 mg tablet 20 mg PO DAILY PRN 08/18/22 10/06/22 Unknown History fexofenadine-pseudoephedrine ER 1 tab PO BEDTIME 09/23/22 10/06/22 Unknown History 180 mg-240 mg tablet,ext.release 24 hr (Keeley-D 24 Hour) Exam Exam Date and Time: November 03, 2022 0813 Height,Weight and Vital Signs: Height 5 ft 9 in Weight 83.461 kg Last Vital Signs Temp 98.2 F 11/03/22 07:55 Pulse 66 11/03/22 07:55 Resp 18 11/03/22 07:55 BP 122/79 11/03/22 07:55 Pulse Ox 100 11/03/22 07:55 O2 Del Method 11/03/22 07:55 Pertinent Lab Results Pertinent Lab Results: Laboratory Tests 11/03/22 07:27 Urine Test NEGATIVE Airway Mallampati Class: II TM Dist: >3cm Neck ROM: Full Assessment and Plan Assessment Anesthesia Assessment: Anesthesia Plan Discussed and Chart Reviewed Final Anesthetic Review Family History of Problems with Anesthesia: No History of Problems with Anesthesia: No NPO: Yes ASA Class: II Final Preanesthetic Review: No Changes in Pt Med Stat, Meds/Allgs Chart Reviewed, Consent Obtained/Reviewed and Anes Risks/Benef Reviewed Patient Risk: Low Procedure Risk: Low Anesthetic Plan Anesthetic Plan: MAC: Disposition: Standard PACU
[2022-11-03] MEDS: Lactated Ringers 1,000 ML 100 ML IVCONT (08:20)
--- NOTE | 2022-11-03 08:45 | W.PM.OPN ---
Operative Note Operative Note Date of Service: 11/03/22 Narrative: Operative Information Procedure Description: EGD, Colonoscopy Indication: anemia, abdominal pain, abn bowel habits, rectal bleeding Anesthesia: MAC FLEXIBLE TRANSORAL UPPER GASTROINTESTINAL ENDOSCOPY AND COLONOSCOPY PROCEDURE NOTE UPPER ENDOSCOPY Consent: Indications for the procedure and potential complications of bleeding, perforation, reaction to medications and missed diagnosis were discussed with the patient and informed consent was obtained. Instrument: Olympus GIF H 190 J mid size upper endoscope Monitoring: Vital signs and clinical assessment, continuous EKG monitoring, Pulse oximetry, Carbon Dioxide monitoring and blood pressure monitoring were done throughout the procedure. Procedure: The patient was placed in the left lateral decubitis position and pre-procedure medications were administered and a bite block was placed. The endoscope was inserted into the mouth and advanced under direct vision to the third part of duodenum. A careful inspection was made as the upper endoscope was withdrawn including a retroflexed examination of the proximal stomach; Findings and interventions are described below. Findings: Larynx:normal Esophagus: GE junction at 40 cm, diaphragm hiatus at 40 cm, mild esophagitis at GEJ, bx taken Stomach: Normal mucosa. Biopsies were obtained. Grade 2 flap valve on retroflexed examination of the cardia. Few fundic gland polyps noted. Duodenum: Normal bulb and descending duodenum, bx taken Intervention: Biopsies as noted above COLONOSCOPY Instrument: Olympus variable stiffness pediatric scope 190L Colonoscopy Monitoring: Vital signs and clinical assessment, continuous EKG monitoring, Pulse oximetry, Carbon Dioxide monitoring and blood pressure monitoring were done throughout the procedure. Colon withdrawal time was 10 minutes. Procedure: The patient was placed in the left lateral decubitis position and pre-procedure medications were administered. After a digital rectal examination of the ano-rectum, the video colonoscope was inserted into the rectum and advanced through the colon to the cecum/TI. The colonoscope was slowly withdrawn in a retrograde panoramic fashion and the colon mucosa was carefully examined including a retroflexed view of the rectum. Findings and interventions are described below. Procedure Difficulty: easy Findings: Terminal Ileum-normal mild melanosis coli Cecum:normal Ascending Colon: x2 sessile polyps 10-12 mm removed with cold snare, one of these was not retrieved Transverse Colon -normal Descending Colon:normal colonic anastomosis: normal, few tics noted, some extrinsic compression of colon noted Rectum: Retroflexion with small internal hemorrhoids, grade I with red krueger Anorectum - normal Colon preparation: [place] Bowel Preparation Scale Right colon; 2 Transverse colon: 3 Left colon; 2 (0 = Unprepared colon segment with mucosa not seen due to solid stool that cannot be cleared. 1 = Portion of mucosa of the colon segment seen, but other areas of the colon segment not well seen due to staining, residual stool and/or opaque liquid. 2 = Minor amount of residual staining, small fragments of stool and/or opaque liquid, but mucosa of colon segment seen well. 3 = Entire mucosa of colon segment seen well with no residual staining, small fragments of stool or opaque liquid) Impression and Post Procedure Diagnosis: Endoscopy Findings: mild esophagitis fundic gland polyps Colonoscopy Findings: polyps internal hemorrhoids diverticular disease melanosis coli Plan: Await Pathology results Repeat Colonoscopy in 2-3 years or earlier if clinically indicated High fiber diet leaflet avoid straining at stool, epsom salts and sitz bath, anusol supps or cream, if rectal bleeding persists then refer Dr Dooley Above findings were reviewed with the patient and relevant handouts were provided if indicated.
[2022-11-03 09:19] VITALS: BP 103/46; PULSE 91; RESP 18; TEMP 36.1; O2SAT 100
[2022-11-03 09:34] VITALS: BP 114/72; PULSE 83; RESP 18; TEMP 36.3; O2SAT 100
== END 2022-11-03 10:08 | disposition home or self-care (01) ==
PROVIDERS: Anesthesiology; PCP Internal Medicine; Visit Provider Internal Medicine Gastroenterology
PROC: (CPT 45385; principal; 2022-11-03 08:30)
DX: D64.9 Anemia, unspecified (principal); Z85.038 Personal history of other malignant neoplasm of large intestine; D12.2 Benign neoplasm of ascending colon; K62.5 Hemorrhage of anus and rectum; R19.4 Change in bowel habit; K57.30 Diverticulosis of large intestine without perforation or abscess without bleeding; K64.0 First degree hemorrhoids; K63.89 Other specified diseases of intestine; Z98.0 Intestinal bypass and anastomosis status; R10.9 Unspecified abdominal pain; K20.80 Other esophagitis without bleeding; K31.7 Polyp of stomach and duodenum; K44.9 Diaphragmatic hernia without obstruction or gangrene; I82.4Z2 Acute embolism and thrombosis of unspecified deep veins of left distal lower extremity; I49.1 Atrial premature depolarization; I49.3 Ventricular premature depolarization; R06.02 Shortness of breath; Z79.51 Long term (current) use of inhaled steroids; Z79.899 Other long term (current) drug therapy; Z91.040 Latex allergy status; Z88.2 Allergy status to sulfonamides; Z88.8 Allergy status to other drugs, medicaments and biological substances; Z86.16 Personal history of COVID-19; Z87.891 Personal history of nicotine dependence
CPT/HCPCS: 45385; 43239; 81025; 88305; 88342

== ENCOUNTER → 2022-11-12 10:16 | Outpatient (BNVA) | payer OTHER, SELFPAY | PROVIDERS: PCP Internal Medicine; Visit Provider Internal Medicine Gastroenterology | DX: Z13.89 Encounter for screening for other disorder (principal) ==

== ENCOUNTER → 2022-11-29 09:35 | Outpatient (BNVA) | payer OTHER, SELFPAY | PROVIDERS: PCP Internal Medicine | DX: Z13.89 Encounter for screening for other disorder (principal) | CPT/HCPCS: 36415; 84450; 84460; 86803; 87389; 99214 ==

== ENCOUNTER → 2022-12-01 09:30 | Outpatient (BNVA) | payer OTHER, SELFPAY | PROVIDERS: PCP Internal Medicine; Visit Provider Physician Assistant Medical | DX: Z13.89 Encounter for screening for other disorder (principal) | CPT/HCPCS: 99213 ==

== ENCOUNTER 2022-12-07 10:38 | Outpatient (REF) | payer OTHER, SELFPAY ==
[2022-12-07 11:09] LABS: Appearance Urine Clear; Color Urine Yellow; Glucose Urine UA Negative (Negative); Leukocyte Esterase Urine Negative (Negative); Nitrite Urine Negative (Negative); Specific Gravity - Urine <= 1.005 (1.005-1.025); Urine Blood Negative (Negative); Urine Ketones Negative (Negative); Urine Protein Negative (Neg-Trace)
== END 2022-12-07 10:39 | disposition home or self-care (01) ==
LOC: HO.LAB 10:38
PROVIDERS: PCP Internal Medicine; Visit Provider Internal Medicine
DX: N39.0 Urinary tract infection, site not specified (principal)
CPT/HCPCS: 81003

== ENCOUNTER 2022-12-09 07:40 | Outpatient (REF) | payer OTHER, SELFPAY ==
--- NOTE | ~2022-12-09 | MM_ITS ---
EXAMINATION: MM SCREENING DIGITAL BREAST TOMOSYNTHESIS, BILATERAL CLINICAL INFORMATION: Screening. Asymptomatic. The lifetime risk of breast cancer based on the Tyrer-Cuzick Model is 9.8%. COMPARISON: Mammography: 12/07/2021 and studies dating back to 02/10/2016. TECHNIQUE: Digital breast tomosynthesis is performed in both the craniocaudal and mediolateral oblique views along with computer-aided detection (CAD). Synthesized 2D images are generated from the tomosynthesis. FINDINGS: The breasts are heterogeneously dense, which may obscure small masses (ACR BI-RADS breast composition Category c). LEFT BREAST: The left breast has a stable parenchymal pattern without new abnormal dominant mass or suspicious grouping of microcalcifications. RIGHT BREAST: Within the deep central aspect on craniocaudal view there is an asymmetric density present approximately 6 cm from the nipple. On mediolateral oblique view it appears to lie inferiorly. Spot compression views are recommended. MM/MM tomosynthesis screening BI IMPRESSION: Right breast density for further evaluation. ASSESSMENT: BI-RADS 0: Incomplete - Need Additional Imaging Evaluation RECOMMENDATION: 1. Additional views of the right breast. 2. Targeted ultrasound if warranted after review of the additional views. 3. Radiology department staff will contact the patient for additional imaging. This patient's information was entered into a reminder system with a target due date for their next mammogram.
== END 2022-12-09 07:41 | disposition home or self-care (01) ==
LOC: HO.MAMMO 07:40
PROVIDERS: PCP Internal Medicine; Visit Provider Internal Medicine
DX: Z12.31 Encounter for screening mammogram for malignant neoplasm of breast (principal)
CPT/HCPCS: 77063; 77067

== ENCOUNTER 2022-12-14 10:47 | Outpatient (REF) | payer OTHER, SELFPAY ==
--- NOTE | ~2022-12-14 | MM_ITS ---
EXAMINATION: MM DIAGNOSTIC DIGITAL BREAST TOMOSYNTHESIS, RIGHT CLINICAL INFORMATION: Asymmetric density. COMPARISON: Mammography: 12/09/2022 and studies dating back to 02/10/2016. TECHNIQUE: Digital breast tomosynthesis is performed. 2D images are generated from the tomosynthesis. The following views are obtained: Spot compression views in craniocaudal, mediolateral oblique, 90-degree mediolateral views performed. FINDINGS: The breasts are heterogeneously dense, which may obscure small masses (ACR BI-RADS breast composition Category c). No discrete mass is identified on spot compression films with densities being partially effaced; however, this still remains dense parenchyma present. Recommend 6 month follow-up right breast mammography. Results are provided to the patient at time of visit by the technologist. MM/MM tomosynthesis added views R IMPRESSION: No discrete right breast mass identified. Region of dense tissue which can somewhat limit evaluation and 6-month followup right breast study is recommended to ensure stability. ASSESSMENT: BI-RADS 3: Probably benign. RECOMMENDATION: Diagnostic mammography in 6 months. This patient's information was entered into a reminder system with a target due date for their next mammogram.
== END 2022-12-14 10:48 | disposition home or self-care (01) ==
LOC: HO.MAMMO 10:47
PROVIDERS: PCP Internal Medicine; Visit Provider Internal Medicine
DX: R92.2 Inconclusive mammogram (principal)
CPT/HCPCS: 77061; 77065

== ENCOUNTER 2022-12-17 09:41 | Outpatient (REF) | payer OTHER, SELFPAY ==
[2022-12-17 11:07] LABS: Alanine Aminotransferase 20 U/L (0-31); Albumin Level 4.5 g/dL (3.5-5.0); Alkaline Phosphatase 53 U/L (39-117); Anion Gap 11 (12-20); Aspartate Amino Transferase 15 U/L (5-31); Bilirubin Total 0.9 mg/dL (0.0-1.0); Blood Urea Nitrogen 18 mg/dL (9-16); Calcium 9.5 mg/dL (8.4-10.2); Carbon Dioxide 28 mmol/L (22-29); Chloride 104 mmol/L (96-108); Cholesterol 180 mg/dL; Estimated Glomerular Filt Rate > 60; Glucose Fasting 93 mg/dL (60-99); HDL Cholesterol 65 mg/dL; LDL Cholesterol Calculated 103 mg/dl; Potassium 4.9 mmol/L (3.3-5.1); Sodium 138 mmol/L (135-145); Total Protein 7.1 g/dL (6.5-8.0); Triglycerides 62 mg/dL
== END 2022-12-17 09:42 | disposition home or self-care (01) ==
LOC: HO.LAB 09:41
PROVIDERS: PCP Internal Medicine; Visit Provider Internal Medicine Medical Oncology
DX: I49.1 Atrial premature depolarization (principal); E78.5 Hyperlipidemia, unspecified
CPT/HCPCS: 36415; 80053; 80061

== ENCOUNTER → 2023-01-13 09:18 | Outpatient (BNVA) | payer OTHER, SELFPAY | PROVIDERS: PCP Internal Medicine; Visit Provider Surgery | DX: K64.8 Other hemorrhoids (principal) | CPT/HCPCS: 46600 ==

== ENCOUNTER 2023-01-25 10:42 | Outpatient (REF) | payer OTHER, SELFPAY ==
[2023-01-25 11:39] LABS: Influenza A PCR NEGATIVE (Negative); Influenza B PCR NEGATIVE (Negative); Resp Syncy Virus RNA Qual PCR NEGATIVE (Negative); SARS COV2 PCR INHOUSE NEGATIVE (Negative)
== END 2023-01-25 10:43 | disposition home or self-care (01) ==
LOC: HO.LAB 10:42
PROVIDERS: PCP Internal Medicine; Visit Provider Internal Medicine
DX: R09.89 Other specified symptoms and signs involving the circulatory and respiratory systems (principal); Z20.822 Contact with and (suspected) exposure to COVID-19
CPT/HCPCS: 0241U

== ENCOUNTER → 2023-03-10 09:55 | Outpatient (REF) | payer OTHER, SELFPAY ==
--- NOTE | 2023-03-10 10:56 | HM_ITS ---
Conclusion: 1. Patient was monitored for total period of 2 days and 23 hours 2. Baseline was normal sinus rhythm with average heart of 79 beats per minute 3. No significant pauses noted 4. Total of 2900 PVCs accounting for 0.9% of total beats account for occasional PVCs 5. Patient reported 5 events of fluttering/palpitations correlating with isolated PVCs MTDD
== END ==
LOC: HO.SL 09:55
PROVIDERS: PCP Internal Medicine; Visit Provider Physician Assistant
DX: G47.33 Obstructive sleep apnea (adult) (pediatric) (principal); I49.3 Ventricular premature depolarization; R00.2 Palpitations
CPT/HCPCS: 93242; 95806

== ENCOUNTER → 2023-03-16 07:59 | Outpatient (BNVA) | payer OTHER, SELFPAY | PROVIDERS: PCP Internal Medicine; Visit Provider Student in an Organized Health Care Education/Training Program ==

== ENCOUNTER → 2023-03-30 14:56 | Outpatient (REF) | payer OTHER, SELFPAY ==
--- NOTE | 2023-03-30 15:01 | CA_ITS ---
Transthoracic Echocardiogram Patient (Last, First, Middle): Katlyn Shaikh, Gender: Female Date of : 1975 Age: 47 Procedure Date: 03/30/2023 Procedure Type: Transthoracic Echocardiogram Location: OP Height: 177.8 cm Weight: 83.46 kg BSA: 2.01 m2 Heart Rate: bpm BP: 128 / 80 mmHg Relief Worker: KAUSHAL Referring MD: Navneet Anguiano PA-C Symptoms: R00.2 - Palpitations Study Quality: Fair ECG Rhythm: Sinus Conclusions: - The left ventricular systolic function is normal. The calculated ejection fraction is 56% by biplane method. - No obvious valvular pathology seen on this study. Findings Left Ventricle Normal left ventricular cavity size. There is normal left ventricular wall thickness. The left ventricular systolic function is normal. The calculated ejection fraction is 56% by biplane method. There is no evidence of regional wall motion abnormalities. Diastolic function is normal for age. Right Ventricle Normal right ventricular cavity size and systolic function. Atria Both atria are normal in size. Aortic Valve There is a normal trileaflet aortic valve. There is no aortic valve stenosis. There is no aortic valve regurgitation. Mitral Valve The mitral valve appears normal. There is no mitral valve regurgitation. There is no mitral valve stenosis. Pulmonic Valve The pulmonic valve is likely normal. Tricuspid Valve Normal tricuspid valve structure. There is trace tricuspid valve regurgitation. There is no evidence of pulmonary hypertension. Great Vessels The asc aorta and aortic arch are normal in size. Venous The inferior vena cava is normal in size and collapses greater than 50% with inspiration. Pericardium/Pleural There is no evidence of pericardial effusion. Prior Study Comparison No significant change compared to prior study dated: 01/15/2021. Recommendations, Care & Conclusions No obvious valvular pathology seen on this study. Measurements 2D Linear Measurements IVSd: 1.02 0.6-0.9/0.6-1.0 cm LVIDd: 5.36 3.9-5.3/4.2-5.9 cm LVIDd Index: 2.67 2.4-3.2/2.2-3.1 cm/m2 LVIDs: 3.64 2.0-3.6 cm LVPWd: 1.04 0.7-1.1 cm Ao Root: 3.70 2.1-3.5 cm LA Diam: 3.40 2.7-3.8/3.0-4.0 cm LAIDs Index: 1.69 1.5-2.3 cm/m2 LV Mass: 264.71 67-162/88-224 g LV Mass Index: 131.70 43-95/49-115 g/m2 LVOT Diam: 2.40 3.0+(-)1.3 cm 2D Systolic Function EF 4C: 61.40 >55% EF 2C: 46.60 >55% EF BiP: 56.30 >55% Mitral Valve MV Pk E: 0.76 MV PK A: 0.78 MV Decel Time: 139.00 E/A: 1.00 E'Lateral: 9.79 E'Medial: 4.68 E/E' Med: 16.20 E/E' Lat: 7.70 PHT: 41.00 MVA PHT: 5.37 Decel Woodruff: 5.46 Aortic Valve AoV Pk Silvino: 1.42 AoV Mn Silvino: 0.95 AoV VTI: 0.37 AoV Pk Grad: 8.00 Aov Mn Grad: 4.00 JERMAIN Cont.VTI: 2.25 LVOT LVOT Pk Silvino: 0.84 LVOT Mn Silvino: 0.56 LVOT VTI: 0.18 LVOT Pk Grad: 3.00 LVOT Mn Grad: 2.00 LVOT Diam: 2.40 LVOT Area: 4.52 Diastolic Function MV Pk E: 0.76 MV Pk A: 0.78 E/A: 1.00 E'Medial: 4.68 E/E' Med: 16.20 E' Laterial: 9.79 E/E' Lat: 7.70 Right Ventricle TAPSE (mm): 32.00 TVS' Silvino: 10.00 Tricuspid Valve TR Pk Silvino: 1.87 TR Pk Grad: 14.00 RA Press: 3.00 RVSP: 17.00 Great Vessels Aorta Ao Root-2D: 3.70 2.0-3.7 cm Ao Asc: 3.20 2.1-3.4 cm Ao Arch: 2.90 Pulmonary Valve PV Pk Silvino: 1.15 Peak PV Grad: 5.00 Updated in Other Vendor System with Status of Final French Pugh MD electronically signed on 03/31/2023 4:56:24 PM with status of Final
== END ==
LOC: HO.CARD 14:56
PROVIDERS: PCP Internal Medicine; Visit Provider Physician Assistant
DX: R00.2 Palpitations (principal); I49.3 Ventricular premature depolarization
CPT/HCPCS: 93306

== ENCOUNTER → 2023-05-03 14:53 | Outpatient (BNVA) | payer OTHER, SELFPAY | PROVIDERS: PCP Internal Medicine; Referring Provider Internal Medicine; Visit Provider Nurse Practitioner Family | DX: R00.2 Palpitations (principal); I49.3 Ventricular premature depolarization | CPT/HCPCS: 93005 ==

== ENCOUNTER 2023-05-27 10:23 | Outpatient (AMB) | payer OTHER, SELFPAY ==
--- NOTE | 2023-05-27 10:26 | A.OFFPC_ITS ---
Vital Signs 05/27/23 10:27 Height 5 ft 9 in Weight 198 lb BMI 29.2 BP 130/86 Blood Pressure Location Lt brachial Position Sitting Pulse 69 Pulse Source Pulse Oximeter Temp Source Skin Pulse Oximetry (%) 99 Oxygen Delivery Method Room Air Intake Visit Reasons: rash all over body Intake Note: pt states welts and rash all over body this morning Supervisor Body Assembly Required: No Allergies shrimp [SHRIMP] Allergy (Severe, Verified 05/27/23 10:52) Anaphylaxis latex [LATEX] Allergy (Unknown, Verified 05/27/23 10:52) RASH levofloxacin [From LEVAQUIN] Allergy (Unknown, Verified 05/27/23 10:52) AGITATION morphine [MORPHINE] Allergy (Unknown, Verified 05/27/23 10:52) HEADACHES Sulfa (Sulfonamide Antibiotics) [SULFA (SULFONAMIDE ANTIBIOTICS)] Allergy (Unknown, Verified 05/27/23 10:52) HIVES Medication List - Last Reconciled 05/27/23 by LUCIANA Laws albuterol sulfate 90 mcg/actuation 1 inh inhalation QID PRN azelastine 0.05% 1 drp ophthalmic (eye) BID bupropion HCl 150 mg PO QAM 90 days CPAP (CPAP Machine/Device) As directed fexofenadine-pseudoephedrine 180-240 mg ER (Keeley-D 24 Hour) 1 tab PO BEDTIME ipratropium bromide 2 sprays intranasal BID PRN 30 days levonorgestrel (Mirena) 20 mcg intrauterine DIRECTED metoprolol succinate ER 25 mg PO DAILY omeprazole 20 mg PO DAILY rivaroxaban (Xarelto) 10 mg PO DAILY Tobacco use date assessed: 05/27/23 HPI rash all over body HPI Details Patient is a 47-year-old female who presents today for the same day visit for rash on her body that she noticed this morning. Patient of Dr. Mcmillan. Medical history significant for PVCs, heart palpitations, polyarthralgia, depression, RADHA among others. Patient reports she noticed rash on her left leg, left lateral side this morning, denies itch, reports that this rash is improving. Patient also reports that yesterday she picked up a family dog who scratched her left chest - today patient reports there pruritus - would like to hold off on tetanus vaccine, last vaccine in 2010. Patient denies using new shampoo, body wash detergent, or new foods. In addition, patient reports that today at work her coworker noted red spot on her left eye, patient also reports some pressure around her left eye that started today. She denies left eye acute vision changes, no eyeball pain, no sensitivity to light, no eye discharge, no eye injury, no vision loss. Denies problems with her right eye. No headache. PFSH Medical History Breast pain Colon cancer COVID-19 DVT (deep venous thrombosis) Hemorrhoids with complication PAC (premature atrial contraction) PVC (premature ventricular contraction) Shortness of breath Surgical History H/O knee surgery History of colon surgery History of esophagogastroduodenoscopy (EGD) Hx of colonoscopy Family History Mother High blood pressure COPD (chronic obstructive pulmonary disease) History of four vessel coronary artery bypass graft Mental health disorder Father High blood pressure Social History Housing: House Alcohol intake: current Alcohol intake frequency: holidays/special occasions only Alcohol type: wine Patient Tobacco Use Status: Former Tobacco user Quit Date: 13 years ago Tobacco use type: Smokeless Tobacco e-Cigarette/Vaping Use: Currently Using Second Hand Smoke Exposure: No service: No Current occupational status: employed 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 How often do you have a drink containing alcohol?: 2-3 times a week 2. How many drinks containing alcohol do you have on a typical day when you are drinking?: 1 or 2 3. How often do you have six or more drinks on one occasion?: Never Total Score: 3 Score Reviewed/Action Taken: No CHAVA-7 AMB Questionnaire CHAVA-7 Date CHAVA - 7 assessed: 12/16/22 Source: Developed by Drs. Phuc Carter, Carlita Mercado, Joseph Christianson and colleagues, with an educational oumar from [employer]. Review of Systems Const Denies body aches, Denies chills, Denies fever(s) and Denies headache(s) Eyes Reports as per HPI, Denies blurry vision, Denies change in vision, Denies loss of vision, Denies eye pain and Denies photophobia ENT Denies dizziness, Denies otalgia, Denies headache(s), Denies nasal discharge, Denies sinus pain and Denies sore throat Card Denies chest pain, Denies edema, Denies lightheadedness and Denies dyspnea Resp Denies cough, Denies dyspnea and Denies wheezing GI Denies abdominal pain Denies dysuria Musc Denies myalgias Skin/Breast Reports rash Neuro Denies dizziness, Denies headache(s) and Denies loss of vision Aller/Immun Denies wheezing Physical exam (Primary Care) Vital Signs: Last Vital Signs Pulse 69 05/27/23 10:27 BP 130/86 05/27/23 10:27 Pulse Ox 99 05/27/23 10:27 Oxygen Delivery Method Room Air 05/27/23 10:27 BMI result Body Mass Index 29.2 Tobacco/Smoking Status: Tobacco use Status Tobacco use date assessed 05/27/23 05/27/23 10:31 Patient Tobacco Use Status Former Tobacco user 05/27/23 10:31 Tobacco use type Smokeless Tobacco 05/27/23 10:31 e-Cigarette/Vaping Use Currently Using 05/27/23 10:31 Thrive Assessment: Date of Thrive Assessment Date Thrive assessed 12/16/22 05/27/23 10:31 Const General: cooperative and no acute distress Orientation/consciousness: patient oriented x3 HENMT Head: Yes normocephalic and Yes atraumatic Ears: TM's normal bilaterally Face and sinus: Yes sinuses nontender Mouth: oropharynx normal and moist mucous membranes Throat: Yes posterior oropharynx normal Eyes Other: Left periorbital aspect nontender Left temporal area nontender General: appearance normal, both eyes and all related structures Periorbital: periorbital findings normal Eyelids: Yes eyelids normal Pupils: Equal, round and reactive pupils present EOM: EOMs intact bilaterally Direct Ophthalmoscopy: No photophobia Eyes/upper lids images: 1. Left low eyeball with erythematous area about 5mm Neck Neck: Yes normal visual inspection, Yes full ROM and Yes no lymphadenopathy Resp Effort & Inspection: normal respiratory effort and able to speak in complete sentences Auscultation: clear to auscultation bilaterally, no crackles, no rales, no rhonchi and no wheezes Cardio Rate: regular rate Rhythm: regular rhythm Heart sounds: S1 normal heart sound present and S2 normal heart sound present GI Auscultation: normal bowel sounds Skin Other: Left chest with linear thigh pain erythematous area about 10cm, no signs of infection noted Left leg and left lateral chest with flat erythematous area about 1cm, no signs of infection noted Neuro General: patient oriented x3 and CN's II-XI intact bilaterally Cranial nerves: Yes Equal, round and reactive pupils present Gait exam (Neuro): Normal gait present Extrem General: Yes full ROM and No edema Assessment and Plan Assessment & Plan (1) Subconjunctival hemorrhage of left eye: Code(s): H11.32 - Conjunctival hemorrhage, left eye Plan: Suspect subconjunctival hemorrhage of left eye, encouraged patient to monitor her symptoms, this should resolve in about 2-3 weeks. Signs and symptoms reviewed when to notify provider or go to the emergency department. Patient agreed with the plan. (2) Rash: Code(s): R21 - Rash and other nonspecific skin eruption Plan: Patient reports that rash is improving She can use [id number] Benadryl 1 tablet every 8 hours as needed Patient was encouraged to monitor her rash Signs and symptoms reviewed when to notify provider or go to the emergency department Plan Keep appointment with PCP as scheduled or follow-up sooner as needed Coding Level of Care Code Est Pt Level 3 (89020) Diagnoses Subconjunctival hemorrhage of left eye H11.32 Rash R21
[2023-05-27 10:27] VITALS: BP 130/86; PULSE 69; O2SAT 99; BMI 29.2
== END 2023-05-27 11:09 | disposition home or self-care (01) ==
PROVIDERS: PCP Internal Medicine; Visit Provider Nurse Practitioner Family
DX: H11.32 Conjunctival hemorrhage, left eye (principal); R21 Rash and other nonspecific skin eruption
CPT/HCPCS: 99213

== ENCOUNTER 2023-06-02 14:11 | Outpatient (REF) | payer OTHER, SELFPAY | END 2023-06-02 14:12 | disposition home or self-care (01) | LOC: HO.LNP 14:11 | PROVIDERS: PCP Internal Medicine; Visit Provider Advanced Practice Midwife | DX: Z13.89 Encounter for screening for other disorder (principal) ==

== ENCOUNTER 2023-06-02 14:11 | Outpatient (AMB) | payer OTHER, MEDICAID, SELFPAY ==
--- NOTE | 2023-06-02 14:12 | A.OFFVIS_ITS ---
Intake Vital Signs 06/02/23 14:13 Height 5 ft 9 in Weight 198 lb BMI 29.2 BP 116/70 Intake Visit Reasons: ? BV/yeast infection, Annual physical exam Intake Note: The patient agreed to use of a medical receptionist assistant during this encounter. Scribed for STEVE Ruiz by Lety Thorne medical receptionist assistant, on 06/02/2023 at 2:29 pm EST. Toll Repairer Central Office: Toll Repairer Central Office Present (Zee) Allergies shrimp [SHRIMP] Allergy (Severe, Verified 06/02/23 14:13) Anaphylaxis latex [LATEX] Allergy (Unknown, Verified 06/02/23 14:13) RASH levofloxacin [From LEVAQUIN] Allergy (Unknown, Verified 06/02/23 14:13) AGITATION morphine [MORPHINE] Allergy (Unknown, Verified 06/02/23 14:13) HEADACHES Sulfa (Sulfonamide Antibiotics) [SULFA (SULFONAMIDE ANTIBIOTICS)] Allergy (Unknown, Verified 06/02/23 14:13) HIVES HPI HPI Comments History of Present Illness Details She is here for presenting for annual exam and vaginal discharge. Believed she had a yeast infection and received a RX. Currently sexually active with new partner. Mirena for BC. Patient admits she tries to eat a healthy diet including Calcium and Vitamin D. She stays active with exercise. STD screening offered; she accepts.? Denies family hx of colon cancer.? Last pap smear 11/03/22. Last mammogram 12/09/22. UTD with colonoscopy, hx. of colon cancer. PFSH Medical History Breast pain Colon cancer COVID-19 DVT (deep venous thrombosis) Hemorrhoids with complication PAC (premature atrial contraction) PVC (premature ventricular contraction) Shortness of breath Vaginal discharge Surgical History H/O knee surgery History of colon surgery History of esophagogastroduodenoscopy (EGD) Hx of colonoscopy Family History Mother High blood pressure COPD (chronic obstructive pulmonary disease) History of four vessel coronary artery bypass graft Mental health disorder Father High blood pressure Social History Housing: House Alcohol intake: current Alcohol intake frequency: holidays/special occasions only Alcohol type: wine Patient Tobacco Use Status: Former Tobacco user Quit Date: 13 years ago Tobacco use type: Smokeless Tobacco e-Cigarette/Vaping Use: Currently Using Second Hand Smoke Exposure: No service: No Current occupational status: employed 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 Current occupational exposures/hazards: No Cognitive needs: No Hearing needs: No Vision needs: No Female Reproductive History Menstrual Age of Menarche: 10 control method: progestin IUCD (Mirena; IUD strings visible 06/02/23) Physical Exam Vital Signs: Last Vital Signs BP 116/70 06/02/23 14:13 BMI result Body Mass Index 29.2 Const General: cooperative, healthy appearing, comfortable, no acute distress, well developed, alert and awake Eyes General: appearance normal, both eyes and all related structures Chest Chest palpation & inspection: normal inspection of the chest and normal palpation of entire chest wall Breast/axilla inspection: normal inspection of the breasts ((no puckering, dimpling, peau de orange, retraction, discharge, masses) and normal inspection of the axillae Breast/axilla palpation: normal palpation of the breasts and normal palpation of the axillae GI Inspection: Yes normal to inspection Palpation (GI): Soft to palpation Percussion: Yes normal to percussion Rectal Exam - Female: deferred Other: General: Yes bladder normal to palpation External Female Exam: normal external appearance and normal appearance of the urethra Speculum Exam - Vagina: normal appearance of the vagina, normal palpation and abnormal vaginal discharge white Speculum Exam - Cervix: normal appearance of the cervix, normal palpation and Other cervical findings present (IUD strings visible) Bimanual exam- vagina & uterus: normal bimanual exam, normal palpation, bladder normal to palpation and normal palpation Bimanual Exam- Adnexa, other: normal adnexae and no masses Assessment & Plan Assessment & Plan (1) Vaginal discharge: Code(s): N89.8 - Other specified noninflammatory disorders of vagina Plan: Discussed: Current recommendations for pap smears per ASCCP guidelines Breast awareness and periodic self breast exams. Maintaining a healthy lifestyle including a well balanced diet and routine exercise. BV testing and GC/CT panel done today. Await results and treat accordingly. All of her questions and concerns were addressed to the best of my ability and shared decision making. She is agreeable to plan of care. Cancel 07/30 AG. RTO for AG. (2) Well woman exam: Code(s): Z01.419 - Encounter for gynecological examination (general) (routine) without abnormal findings (3) Encounter for annual physical exam: Code(s): Z00.00 - Encounter for general adult medical examination without abnormal findings Orders: Orders Bacterial Vaginosis Panel Today N89.8 - Other specified noninflammatory disorders of vagina CT NG by PCR Today N89.8 - Other specified noninflammatory disorders of vagina Coding Level of Care Code Est Pt Prev Care 40-64y([id number]) Diagnoses Vaginal discharge N89.8 Well woman exam Z01.419 Encounter for annual physical exam Z00.00
[2023-06-02 14:13] VITALS: BP 116/70; BMI 29.2
== END 2023-06-02 14:51 | disposition home or self-care (01) ==
LOC: HO.HWS 14:11
PROVIDERS: PCP Internal Medicine; Visit Provider Advanced Practice Midwife
DX: Z01.419 Encounter for gynecological examination (general) (routine) without abnormal findings (principal); N89.8 Other specified noninflammatory disorders of vagina
CPT/HCPCS: 99396

== ENCOUNTER 2023-06-02 14:48 | Outpatient (REF) | payer OTHER, SELFPAY ==
[2023-06-03 02:46] LABS: CT PCR NOT DETECTED (Not Detect.); NG PCR NOT DETECTED (Not Detect.)
[2023-06-03 13:20] LABS: BV Int Neg Control Negative (Negative); BV Int Pos Control Positive (Positive)
== END 2023-06-02 14:49 | disposition home or self-care (01) ==
LOC: HO.LAB 14:48
PROVIDERS: Visit Provider Advanced Practice Midwife
DX: N89.8 Other specified noninflammatory disorders of vagina (principal)
CPT/HCPCS: 0353U; 87480; 87510; 87660

== ENCOUNTER 2023-06-15 10:45 | Outpatient (REF) | payer OTHER, SELFPAY ==
--- NOTE | ~2023-06-15 | MM_ITS ---
EXAMINATION: MM DIAGNOSTIC DIGITAL BREAST TOMOSYNTHESIS, RIGHT US BREAST LIMITED, RIGHT MAMMOGRAPHY: CLINICAL INFORMATION: 6 month Follow-up for asymmetric density right breast inferomedial aspect. The lifetime risk of breast cancer based on the Tyrer-Cuzick Model is 10%. COMPARISON: Mammography: 12/14/2022, 12/09/2022, and dating back to 2019. TECHNIQUE: Digital breast tomosynthesis is performed in the right craniocaudal and mediolateral oblique views along with computer-aided detection (CAD). Synthesized 2D images are generated from the tomosynthesis. FINDINGS: There are scattered areas of fibroglandular density (ACR BI-RADS breast composition Category b). There are no significant masses, abnormal calcifications, or other abnormalities. The asymmetric density in the right inferomedial breast has the appearance of a prominent island of normal breast parenchyma on the tomographic images. Results are provided to the patient at time of visit by the technologist. ULTRASOUND: CLINICAL INFORMATION: Asymmetric density right breast inferomedial aspect. COMPARISON: No prior ultrasound. Correlation made with recent mammography. TECHNIQUE: Targeted sonographic evaluation was performed using a high frequency linear transducer. Selected archived documentation. FINDINGS: RIGHT BREAST: There is a mixture of fatty and fibroglandular tissue. No suspicious mass is seen. There is no pathologic acoustic shadowing. There is no axillary adenopathy. No sonographic abnormality is present in the right inferomedial breast to correlate with the asymmetric density. MM/MM tomosynthesis diagnostic RT IMPRESSION: No mammographic evidence of malignancy. OVERALL ASSESSMENT: Mammography: BI-RADS 1 - Negative Ultrasound: BI-RADS 1 - Negative RECOMMENDATION: 1 year F/U This patient's information was entered into a reminder system with a target due date for their next mammogram.
== END 2023-06-15 10:46 | disposition home or self-care (01) ==
LOC: HO.MAMMO 10:45
PROVIDERS: PCP Physician Assistant; Visit Provider Internal Medicine
DX: R92.2 Inconclusive mammogram (principal)
CPT/HCPCS: 76642; 77061; 77065

== ENCOUNTER → 2023-06-15 11:00 | Outpatient (BNV) | payer OTHER, SELFPAY | PROVIDERS: PCP Physician Assistant; Visit Provider Radiology Diagnostic Radiology | DX: R92.8 Other abnormal and inconclusive findings on diagnostic imaging of breast (principal) | CPT/HCPCS: 76642; 77061; 77065 ==

== ENCOUNTER 2023-06-15 13:23 | Outpatient (AMB) | payer OTHER, SELFPAY ==
[2023-06-15 13:35] VITALS: BP 112/70; PULSE 85; O2SAT 98; BMI 29.4
--- NOTE | 2023-06-15 13:35 | MHC.PC.OV ---
Vital Signs 06/15/23 13:35 Height 5 ft 9 in Weight 199 lb BMI 29.4 BP 112/70 Blood Pressure Location Lt brachial Position Sitting Pulse 85 Pulse Source Pulse Oximeter Pulse Oximetry (%) 98 Oxygen Delivery Method Room Air Intake Visit Reasons: 4 month f/u Director Of Outpatient Services Required: No Accompanied by: Self / Same As Patient Allergies shrimp [SHRIMP] Allergy (Severe, Verified 06/15/23 13:48) Anaphylaxis latex [LATEX] Allergy (Unknown, Verified 06/15/23 13:48) RASH levofloxacin [From LEVAQUIN] Allergy (Unknown, Verified 06/15/23 13:48) AGITATION morphine [MORPHINE] Allergy (Unknown, Verified 06/15/23 13:48) HEADACHES Sulfa (Sulfonamide Antibiotics) [SULFA (SULFONAMIDE ANTIBIOTICS)] Allergy (Unknown, Verified 06/15/23 13:48) HIVES Medication List - Last Reconciled 06/15/23 by Ailyn Quintana MD albuterol sulfate 90 mcg/actuation 1 inh inhalation QID PRN azelastine 0.05% 1 drp ophthalmic (eye) BID bupropion HCl 150 mg PO QAM 90 days CPAP (CPAP Machine/Device) As directed fexofenadine-pseudoephedrine 180-240 mg ER (Keeley-D 24 Hour) 1 tab PO BEDTIME ipratropium bromide 2 sprays intranasal BID PRN 30 days levonorgestrel (Mirena) 20 mcg intrauterine DIRECTED omeprazole 20 mg PO DAILY rivaroxaban (Xarelto) 10 mg PO DAILY Tobacco use date assessed: 05/27/23 Dental Screening Dental Screen Date: 06/15/23 Did you have a dental visit in the last 12 months?: Yes Did you have a dental problem in the last 6 months where you did not have access to dental care?: No Was dental information given to patient?: Patient has dentist HPI HPI Comments History of Present Illness Details This is a 48-year-old female with mild major depression, GERD, asthma and obstructive sleep apnea that comes today for follow-up on her conditions. Depression stable with bupropion this but would like an increase. GERD stable with PPIs as needed. For her asthma she use rescue inhaler less than once a month. She has not started the CPAP machine for her obstructive sleep apnea and has follow-up with pulmonology today. History of colon cancer that is follow by Gastroenterology. No chest pain or shortness of breath. [facility] Medical History (Updated 06/15/23 @ 14:19 by Ailyn Quintana MD) Breast pain Colon cancer COVID-19 DVT (deep venous thrombosis) Hemorrhoids with complication PAC (premature atrial contraction) PVC (premature ventricular contraction) Shortness of breath Vaginal discharge Surgical History H/O knee surgery History of colon surgery History of esophagogastroduodenoscopy (EGD) Hx of colonoscopy Family History Mother High blood pressure COPD (chronic obstructive pulmonary disease) History of four vessel coronary artery bypass graft Mental health disorder Father High blood pressure Social History Housing: House Alcohol intake: current Alcohol intake frequency: holidays/special occasions only Alcohol type: wine Patient Tobacco Use Status: Former Tobacco user Quit Date: 13 years ago Tobacco use type: Smokeless Tobacco e-Cigarette/Vaping Use: Currently Using Second Hand Smoke Exposure: No service: No Current occupational status: employed 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 Current occupational exposures/hazards: No Cognitive needs: No Hearing needs: No Vision needs: No Female Reproductive History Menstrual Age of Menarche: 10 Questionnaire Thrive Questionnaire Date Thrive assessed: 12/16/22 CHAVA-7 AMB Questionnaire CHAVA-7 Date CHAVA - 7 assessed: 12/16/22 Source: Developed by Drs. Phuc Carter, Carlita Mercado, Joseph Christianson and colleagues, with an educational oumar from [employer]. Review of Systems Const All systems reviewed & are unremarkable except as noted in HPI and below Eyes Reports no additional complaints, Denies change in vision and Denies other visual disturbances Card Denies chest pain at rest, Denies chest pain with activity, Denies edema, Denies irregular heart rhythm, Denies claudication, Denies dyspnea, Denies dyspnea on exertion, Denies orthopnea, Denies paroxysmal nocturnal dyspnea and Denies slow heart rate Resp Denies cough, Denies dyspnea and Denies dyspnea on exertion GI Denies abdominal pain, Denies change in bowel habits, Denies excessive flatus, Denies nausea and Denies vomiting Denies urinary incontinence, Denies urinary hesitancy and Denies urinary urgency Musc Denies abnormal gait, Denies atrophy, Denies deformity and Denies limited range of motion Skin/Breast Denies bleeding lesions, Denies changing lesions and Denies rash Neuro Denies abnormal gait and Denies lack of coordination Physical exam (Primary Care) Vital Signs: Last Vital Signs Pulse 85 06/15/23 13:35 BP 112/70 06/15/23 13:35 Pulse Ox 98 06/15/23 13:35 Oxygen Delivery Method Room Air 06/15/23 13:35 BMI result Body Mass Index 29.4 Tobacco/Smoking Status: Tobacco use Status Tobacco use date assessed 05/27/23 06/15/23 13:41 Patient Tobacco Use Status Former Tobacco user 06/15/23 13:41 Tobacco use type Smokeless Tobacco 06/15/23 13:41 e-Cigarette/Vaping Use Currently Using 06/15/23 13:41 Thrive Assessment: Date of Thrive Assessment Date Thrive assessed 12/16/22 06/15/23 13:41 Eyes General: appearance normal, both eyes and all related structures Eyelids: Yes eyelids normal Conjunctivae: conjunctivae normal Neck Neck: Yes normal visual inspection and Yes supple Resp Effort & Inspection: normal respiratory effort Auscultation: clear to auscultation bilaterally Cardio Jugular venous distension: no JVD Rate: regular rate Rhythm: regular rhythm Heart sounds: S1 normal heart sound present and S2 normal heart sound present Extrem General: Yes full ROM Assessment and Plan Assessment & Plan (1) Mild major depression: Code(s): F32.0 - Major depressive disorder, single episode, mild Plan: Increase bupropion to 300 mg. (2) RADHA (obstructive sleep apnea): Code(s): G47.33 - Obstructive sleep apnea (adult) (pediatric) Plan: Start CPAP. Follow-up with pulmonology. (3) GERD (gastroesophageal reflux disease): Code(s): K21.9 - Gastro-esophageal reflux disease without esophagitis Plan: Continue PPIs. (4) Asthma: Code(s): J45.909 - Unspecified asthma, uncomplicated Plan: Continue longstanding inhaler. Use rescue inhaler as needed. Medications: New bupropion HCl 300 mg PO QAM 90 tabs 1RF 90 days Discontinued bupropion HCl Discontinued Reason: Patient Completed Course 150 mg PO QAM 90 days 90 tabs 1RF Coding Level of Care Code Est Pt Level 4 (88868) Diagnoses Mild major depression F32.0 RADHA (obstructive sleep apnea) G47.33 GERD (gastroesophageal reflux disease) K21.9 Asthma J45.909 Time Spent (min) 23
== END 2023-06-15 14:00 | disposition home or self-care (01) ==
PROVIDERS: PCP Internal Medicine; Visit Provider Internal Medicine
DX: F32.0 Major depressive disorder, single episode, mild (principal); G47.33 Obstructive sleep apnea (adult) (pediatric); K21.9 Gastro-esophageal reflux disease without esophagitis; J45.909 Unspecified asthma, uncomplicated
CPT/HCPCS: 99214

== ENCOUNTER 2023-06-15 15:09 | Outpatient (AMB) | payer OTHER, SELFPAY ==
[2023-06-15 15:14] VITALS: BP 126/72; PULSE 81; O2SAT 99; BMI 29.5
--- NOTE | 2023-06-15 15:14 | MHC.OFFVIS ---
Intake Vital Signs 06/15/23 15:14 Height 5 ft 9 in Weight 199 lb 8.293 oz BMI 29.5 BP 126/72 Blood Pressure Location Lt brachial Position Sitting Pulse 81 Pulse Source Pulse Oximeter Pulse Oximetry (%) 99 Oxygen Delivery Method Room Air Intake Visit Reasons: Obstructive sleep apnea Intake Note: Pt reports that when her nurse friend tried to help her put her CPAP on she felt like the air flow was too strong. She has not tried sleeping with the CPAP yet. Allergies shrimp [SHRIMP] Allergy (Severe, Verified 06/15/23 15:35) Anaphylaxis latex [LATEX] Allergy (Unknown, Verified 06/15/23 15:35) RASH levofloxacin [From LEVAQUIN] Allergy (Unknown, Verified 06/15/23 15:35) AGITATION morphine [MORPHINE] Allergy (Unknown, Verified 06/15/23 15:35) HEADACHES Sulfa (Sulfonamide Antibiotics) [SULFA (SULFONAMIDE ANTIBIOTICS)] Allergy (Unknown, Verified 06/15/23 15:35) HIVES Medication List - Last Reconciled 06/15/23 by Don Joya MD albuterol sulfate 90 mcg/actuation 1 inh inhalation QID PRN azelastine 0.05% 1 drp ophthalmic (eye) BID bupropion HCl 300 mg PO QAM 90 days CPAP (CPAP Machine/Device) As directed fexofenadine-pseudoephedrine 180-240 mg ER (Keeley-D 24 Hour) 1 tab PO BEDTIME ipratropium bromide 2 sprays intranasal BID PRN 30 days levonorgestrel (Mirena) 20 mcg intrauterine DIRECTED omeprazole 20 mg PO DAILY rivaroxaban (Xarelto) 10 mg PO DAILY Do you need a note to return to daycare/school/sports/work: No HPI Obstructive sleep apnea HPI Details 48 YEARS OLD FEMALE, WORKS AT [employer] IN 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 SHE DOES HAVE HISTORY OF EXCESSIVE SNORING, AND WAKING UP AT NIGHT WITH GASPING LIKE FEELING, FOR SOMETIME. SHE HAS BEEN ONLY MODERATELY OVERWEIGHT. SHE DOES HAVE HISTORY OF INTERMITTENT NASAL CONGESTION/ ALLERGIC RHINITIS. RECENTLY SEEN BY CARDIOLOGY BE WITH COMPLAINT OF SHORT-LIVED PALPITATIONS, MAINLY SECONDARY TO PE A SEASON PVCS. She has past history DVT. And is on Xarelto 10 mg daily. HOME-BASED SLEEP STUDY PERFORMED ON 03/10/2023. THE STUDY SHE SHOWED MODERATELY SEVERE OBSTRUCTIVE SLEEP APNEA, WITH TOTAL SLEEP TIME AHI 18.4. MOST OF THE SLEEP WAS IN SUPINE POSITION. PATIENT GOT THE CPAP DEVICE RECENTLY, AND WHEN SHE STARTED USING ON THE 1ST DAY SHE FELT THAT THE PRESSURE WAS HIGH, SHE HAS NOT BEEN ABLE TO USE IT. SO SHE CAME TODAY TO TALK TO US ABOUT HER SLEEP APNEA AND USE OF CPAP. [facility] Medical History (Updated 06/15/23 @ 15:56 by Don Joya MD) Breast pain Colon cancer COVID-19 DVT (deep venous thrombosis) Hemorrhoids with complication PAC (premature atrial contraction) PVC (premature ventricular contraction) Retrognathia Shortness of breath Vaginal discharge Surgical History H/O knee surgery History of colon surgery History of esophagogastroduodenoscopy (EGD) Hx of colonoscopy Family History Mother High blood pressure COPD (chronic obstructive pulmonary disease) History of four vessel coronary artery bypass graft Mental health disorder Father High blood pressure Social History Housing: House Alcohol intake: current Alcohol intake frequency: holidays/special occasions only Alcohol type: wine Patient Tobacco Use Status: Former Tobacco user Quit Date: 13 years ago Tobacco use type: Smokeless Tobacco e-Cigarette/Vaping Use: Currently Using Second Hand Smoke Exposure: No service: No Current occupational status: employed 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 Current occupational exposures/hazards: No Cognitive needs: No Hearing needs: No Vision needs: No Female Reproductive History Menstrual Age of Menarche: 10 Review of Systems Const All systems reviewed & are unremarkable except as noted in HPI and below Eyes Reports no additional complaints ENT Reports nasal congestion (Off and on) Card Denies chest pain and Reports palpitations (Occasional brief feeling of palpitations) Resp Reports no additional complaints GI Reports heartburn (Controlled with [email or web address]) Reports no additional complaints Musc Reports no additional complaints Skin/Breast Reports system reviewed and no additional complaints, except as documented Neuro Reports no additional complaints Psych Reports anxiety Endo Reports no additional complaints and Reports palpitations (Occasional brief feeling of palpitations) Cameron/Lymph Reports no additional complaints Physical Exam Vital Signs: Last Vital Signs Pulse 81 06/15/23 15:14 BP 126/72 06/15/23 15:14 Pulse Ox 99 06/15/23 15:14 Oxygen Delivery Method Room Air 06/15/23 15:14 BMI result Body Mass Index 29.5 Const Other: Moderately overweight General: healthy appearing, comfortable, no acute distress, alert and awake Orientation/consciousness: patient oriented x3 HEENT Head: Yes normal to inspection General nose exam: No nasal polyps present and No nasal discharge present Face and sinus: Yes sinuses nontender Mouth: oropharynx abnormals (Moderately crowded, Mallampati class 4) Throat: Yes posterior oropharynx normal and Yes other (has retroganthia of the lower jaw ) Eyes General: appearance normal, both eyes and all related structures Neck Neck: Yes normal visual inspection, Yes no lymphadenopathy, Yes trachea midline and Yes no JVD Thyroid: Thyroid normal Chest Chest palpation & inspection: normal inspection of the chest, normal palpation of entire chest wall and no tenderness Resp Effort & Inspection: normal respiratory effort Auscultation: clear to auscultation bilaterally, no crackles and no wheezes Cardio Palpation: normal PMI Rate: regular rate Rhythm: regular rhythm Heart sounds: no gallops and no murmurs Peripheral pulses: Peripheral pulses 2+ throughout GI Palpation (GI): Soft to palpation, nontender, No hepatosplenomegaly present and no masses Auscultation: normal bowel sounds Back/Spine/Pelvis Thoracic/Lumbar Spine: thoracic and lumbar spine normal to inspection Skin General skin exam: no rashes or lesions noted Neuro General: patient oriented x3 and no focal motor deficits Cranial nerves: Yes CN's II-XII intact bilaterally Extrem General: Yes normal to inspection, Yes no clubbing, cyanosis or edema and Yes no calf tenderness Psych Appearance: grossly normal and well kempt Speech and movement: Normal speech and movement present Results Reviewed Results Reviewed: Results of home-based sleep study of 03/10/2023 reviewed. All the sleep was in supine position. Total sleep time AHI 18.4 C/W moderately severe obstructive sleep apnea. Snoring for 12% of the sleep time. 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 THIS IS PROBABLY CONTRIBUTING TO HER OBSTRUCTIVE SLEEP APNEA. Code(s): M26.19 - Other specified anomalies of jaw-cranial base relationship (2) Allergic rhinitis: Comment: HAS CHRONIC INTERMITTENT ALLERGIC RHINITIS, CONTROLLED WITH ALLOGRAFT P.R.N. AND USE OF IPRATROPIUM NASAL SPRAY 2 SPRAYS B.I.D. P.R.N. Code(s): J30.9 - Allergic rhinitis, unspecified (3) RADHA (obstructive sleep apnea): Comment: MODERATELY SEVERE OBSTRUCTIVE SLEEP APNEA. PATIENT STARTED ON CPAP THERAPY, WITH AUTO PAP MODE AND PRESSURE SETTING 6-16 CM, FULLFACE MASK. PATIENT HAVING INITIAL DIFFICULTY IN USING THE CPAP. I AND MY WALL [employer] DEPARTMENT SUPERVISOR , LOOKED AT HER CPAP DEVICE, REVIEWED THE USAGE WITH HER, AND ENCOURAGED HER TO USE EVERY NIGHT. INITIALLY MAY HAVE TO USE FOR A FEW HOURS AND THEN GRADUALLY INCREASE THE USAGE TIME TO 5-6 HOURS. SHE MAY ALSO NEED TO CONTACT THE DME PROVIDER FOR TECHNICAL SUPPORT. Code(s): G47.33 - Obstructive sleep apnea (adult) (pediatric) Coding Level of Care Code New Pt Level 3 (04232) Diagnoses Retrognathia M26.19 Allergic rhinitis J30.9 RADHA (obstructive sleep apnea) G47.33
== END 2023-06-15 15:40 | disposition home or self-care (01) ==
PROVIDERS: PCP Internal Medicine; Visit Provider Internal Medicine
DX: M26.19 Other specified anomalies of jaw-cranial base relationship (principal); J30.9 Allergic rhinitis, unspecified; G47.33 Obstructive sleep apnea (adult) (pediatric)
CPT/HCPCS: 99213

== ENCOUNTER 2023-08-23 13:09 | Outpatient (AMB) | payer OTHER, SELFPAY ==
[2023-08-23 13:13] VITALS: BP 108/64; PULSE 78; O2SAT 100; BMI 28.6
--- NOTE | 2023-08-23 13:13 | MHC.OFFVIS ---
Intake Vital Signs 08/23/23 13:13 Height 5 ft 9 in Weight 194 lb 0.108 oz BMI 28.6 BP 108/64 Blood Pressure Location Rt brachial Position Sitting Pulse 78 Pulse Source Pulse Oximeter Pulse Oximetry (%) 100 Oxygen Delivery Method Room Air Intake Visit Reasons: Obstructive sleep apnea Platform Builder Required: No Supervisor Pipelines: Supervisor Pipelines offered & declined Accompanied by: Self / Same As Patient Allergies shrimp [SHRIMP] Allergy (Severe, Verified 08/23/23 13:34) Anaphylaxis latex [LATEX] Allergy (Unknown, Verified 08/23/23 13:34) RASH levofloxacin [From LEVAQUIN] Allergy (Unknown, Verified 08/23/23 13:34) AGITATION morphine [MORPHINE] Allergy (Unknown, Verified 08/23/23 13:34) HEADACHES Sulfa (Sulfonamide Antibiotics) [SULFA (SULFONAMIDE ANTIBIOTICS)] Allergy (Unknown, Verified 08/23/23 13:34) HIVES adhesives Adverse Reaction (Intermediate, Uncoded 08/23/23 13:34) rash Medication List - Last Reconciled 08/23/23 by Don Joya MD albuterol sulfate 90 mcg/actuation 1 inh inhalation QID PRN azelastine 0.05% 1 drp ophthalmic (eye) BID bupropion HCl 300 mg PO QAM 90 days CPAP (CPAP Machine/Device) As directed fexofenadine (Keeley Allergy) 180 mg PO DAILY ipratropium bromide 2 sprays intranasal BID PRN 30 days levonorgestrel (Mirena) 20 mcg intrauterine DIRECTED omeprazole 20 mg PO DAILY rivaroxaban (Xarelto) 10 mg PO DAILY Do you need a note to return to daycare/school/sports/work: No HPI Obstructive sleep apnea HPI Details 48 years old female comes after 2 months for follow-up. She does have obstructive sleep apnea which is primarily due to Retroganthia of the lower jaw. She is also moderately overweight and has lost about 5 lb of weight. She has been struggling with the CPAP device. Now she does have fullface mask ( [employer]ear ) it is more comfortable. But lately she had a bout of common cold and was not able to use the mask. Her sleep gets disturbed with the use of CPAP. [facility] Medical History Retrognathia Vaginal discharge Hemorrhoids with complication COVID-19 Breast pain Shortness of breath PVC (premature ventricular contraction) PAC (premature atrial contraction) Colon cancer DVT (deep venous thrombosis) Surgical History Hx of colonoscopy History of esophagogastroduodenoscopy (EGD) H/O knee surgery History of colon surgery Family History Mother High blood pressure COPD (chronic obstructive pulmonary disease) History of four vessel coronary artery bypass graft Mental health disorder Father High blood pressure Social History Housing: House Alcohol intake: current Alcohol intake frequency: holidays/special occasions only Alcohol type: wine Patient Tobacco Use Status: Former Tobacco user Quit Date: 13 years ago Tobacco use type: Smokeless Tobacco e-Cigarette/Vaping Use: Currently Using Second Hand Smoke Exposure: No service: No Current occupational status: employed 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 Current occupational exposures/hazards: No Cognitive needs: No Hearing needs: No Vision needs: No Female Reproductive History Menstrual Age of Menarche: 10 Review of Systems Const All systems reviewed & are unremarkable except as noted in HPI and below Eyes Reports no additional complaints ENT Reports nasal congestion (Off and on) Card Denies chest pain and Reports palpitations (Occasional brief feeling of palpitations) Resp Reports no additional complaints GI Reports heartburn (Controlled with [email or web address]) Reports no additional complaints Musc Reports no additional complaints Skin/Breast Reports system reviewed and no additional complaints, except as documented Neuro Reports no additional complaints Psych Reports anxiety Endo Reports no additional complaints and Reports palpitations (Occasional brief feeling of palpitations) Cameron/Lymph Reports no additional complaints Physical Exam Vital Signs: Last Vital Signs Pulse 78 08/23/23 13:13 BP 108/64 08/23/23 13:13 Pulse Ox 100 08/23/23 13:13 Oxygen Delivery Method Room Air 08/23/23 13:13 BMI result Body Mass Index 28.6 Const Other: Moderately overweight General: healthy appearing, comfortable, no acute distress, alert and awake Orientation/consciousness: patient oriented x3 HEENT Head: Yes normal to inspection General nose exam: No nasal polyps present and No nasal discharge present Face and sinus: Yes sinuses nontender Mouth: oropharynx abnormals (Moderately crowded, Mallampati class 4) Throat: Yes posterior oropharynx normal and Yes other (has retroganthia of the lower jaw ) Eyes General: appearance normal, both eyes and all related structures Neck Neck: Yes normal visual inspection, Yes no lymphadenopathy, Yes trachea midline and Yes no JVD Thyroid: Thyroid normal Chest Chest palpation & inspection: normal inspection of the chest, normal palpation of entire chest wall and no tenderness Resp Effort & Inspection: normal respiratory effort Auscultation: clear to auscultation bilaterally, no crackles and no wheezes Cardio Palpation: normal PMI Rate: regular rate Rhythm: regular rhythm Heart sounds: no gallops and no murmurs Peripheral pulses: Peripheral pulses 2+ throughout GI Palpation (GI): Soft to palpation, nontender, No hepatosplenomegaly present and no masses Auscultation: normal bowel sounds Back/Spine/Pelvis Thoracic/Lumbar Spine: thoracic and lumbar spine normal to inspection Skin General skin exam: no rashes or lesions noted Neuro General: patient oriented x3 and no focal motor deficits Cranial nerves: Yes CN's II-XII intact bilaterally Extrem General: Yes normal to inspection, Yes no clubbing, cyanosis or edema and Yes no calf tenderness Psych Appearance: grossly normal and well kempt Speech and movement: Normal speech and movement present Results Reviewed Results Reviewed: Compliance report reviewed and she has not used it much except for 2 or 3 days. Assessment & Plan Assessment & Plan (1) RADHA (obstructive sleep apnea): Comment: MODERATELY SEVERE OBSTRUCTIVE SLEEP APNEA. PATIENT STARTED ON CPAP THERAPY, WITH AUTO PAP MODE AND PRESSURE SETTING 6-16 CM, FULLFACE MASK. USE OF CPAP REMAINS SUBOPTIMAL . HAD A GOOD DISCUSSION AND I HAVE ENCOURAGED THE PATIENT TO USE FOR MORE HOURS, AT LEAST FOR 4 HOURS PER NIGHT. IN ORDER TO GET USE TO THE MASK SHE MAY WEAR IT DURING THE DAYTIME IN THE EVENING WHEN WATCHING TELEVISION. SHE MAY ALSO NEED TO CONTACT THE DME PROVIDER FOR TECHNICAL SUPPORT. Code(s): G47.33 - Obstructive sleep apnea (adult) (pediatric) (2) Allergic rhinitis: Comment: HAS CHRONIC INTERMITTENT ALLERGIC RHINITIS, CONTROLLED WITH ALLOGRAFT P.R.N. AND USE OF IPRATROPIUM NASAL SPRAY 2 SPRAYS B.I.D. P.R.N. 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 THIS IS PROBABLY CONTRIBUTING TO HER OBSTRUCTIVE SLEEP APNEA. Code(s): M26.19 - Other specified anomalies of jaw-cranial base relationship Coding Level of Care Code Est Pt Level 3 (45728) Diagnoses RADHA (obstructive sleep apnea) G47.33 Allergic rhinitis J30.9 Asthma J45.909 Retrognathia M26.19
== END 2023-08-23 13:35 | disposition home or self-care (01) ==
PROVIDERS: PCP Physician Assistant; Visit Provider Internal Medicine
DX: G47.33 Obstructive sleep apnea (adult) (pediatric) (principal); J30.9 Allergic rhinitis, unspecified; J45.909 Unspecified asthma, uncomplicated; M26.19 Other specified anomalies of jaw-cranial base relationship
CPT/HCPCS: 99213

== ENCOUNTER → 2023-08-23 13:09 | Outpatient (BNVA) | payer OTHER, SELFPAY | PROVIDERS: PCP Physician Assistant; Visit Provider Internal Medicine ==

== ENCOUNTER 2023-09-15 07:18 | Outpatient (AMB) | payer OTHER, SELFPAY ==
--- NOTE | 2023-09-15 07:35 | MHC.OFFVIS ---
Intake Vital Signs 09/15/23 07:36 Height 5 ft 9 in Weight 193 lb 5.526 oz BMI 28.5 BP 102/70 Blood Pressure Location Lt brachial Position Sitting Pulse 97 Pulse Source Pulse Oximeter Temp 97.7 F Temp Source Skin Pulse Oximetry (%) 97 Oxygen Delivery Method Room Air Intake Visit Reasons: OA Intake Note: Pt last seen 03/16/23, presents today for follow up. Has not completed PT and OT Rail Bender Required: No Accompanied by: Self / Same As Patient Allergies shrimp [SHRIMP] Allergy (Severe, Verified 09/15/23 07:39) Anaphylaxis latex [LATEX] Allergy (Unknown, Verified 09/15/23 07:39) RASH levofloxacin [From LEVAQUIN] Allergy (Unknown, Verified 09/15/23 07:39) AGITATION morphine [MORPHINE] Allergy (Unknown, Verified 09/15/23 07:39) HEADACHES Sulfa (Sulfonamide Antibiotics) [SULFA (SULFONAMIDE ANTIBIOTICS)] Allergy (Unknown, Verified 09/15/23 07:39) HIVES adhesives Adverse Reaction (Intermediate, Uncoded 09/15/23 07:39) rash Medication List - Last Reconciled 09/15/23 by Janes Aguilera MD albuterol sulfate 90 mcg/actuation 1 inh inhalation QID PRN azelastine 0.05% 1 drp ophthalmic (eye) BID bupropion HCl 300 mg PO QAM 90 days CPAP (CPAP Machine/Device) As directed fexofenadine (Keeley Allergy) 180 mg PO DAILY ipratropium bromide 2 sprays intranasal BID PRN 30 days levonorgestrel (Mirena) 20 mcg intrauterine DIRECTED omeprazole 20 mg PO DAILY rivaroxaban (Xarelto) 10 mg PO DAILY HPI HPI Comments History of Present Illness Details 48-year-old female with osteoarthritis returns for follow-up. She states that over the last 4-5 months she has been pain and intermittent swelling on the outer aspect of her right forearm, right elbow. Worse with activity. Also pain in her right wrist. Initial history: This is a 47-year-old female with a past medical history of colon cancer diagnosed 8 years ago s/p surgical resection followed by chemotherapy. She also has history of 2 DVTs, the 1st was when she was having left ACL repair, the 2nd was in the context of her cancer diagnosis and treatment. For the last year patient has been having multiple joint pain, he has pain in her neck, shoulders, going all the way down to her hands, especially right wrist She has generalized stiffness in the morning. Her neck cracks. She also feels that her strength is not the same. Patient sleeps about 6 hours at night but does not wake up refreshed. She goes to the bathroom multiple times for urination. Denies any unintentional weight loss. She has dry eyes and uses Restasis as needed with some relief. 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 [facility] Medical History Retrognathia Vaginal discharge Hemorrhoids with complication COVID-19 Breast pain Shortness of breath PVC (premature ventricular contraction) PAC (premature atrial contraction) Colon cancer DVT (deep venous thrombosis) Surgical History Hx of colonoscopy History of esophagogastroduodenoscopy (EGD) H/O knee surgery History of colon surgery Family History Mother High blood pressure COPD (chronic obstructive pulmonary disease) History of four vessel coronary artery bypass graft Mental health disorder Father High blood pressure Social History Housing: House Alcohol intake: current Alcohol intake frequency: holidays/special occasions only Alcohol type: wine Patient Tobacco Use Status: Former Tobacco user Quit Date: 13 years ago Tobacco use type: Smokeless Tobacco e-Cigarette/Vaping Use: Currently Using Second Hand Smoke Exposure: No service: No Current occupational status: employed 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 Current occupational exposures/hazards: No Cognitive needs: No Hearing needs: No Vision needs: No Female Reproductive History Menstrual Age of Menarche: 10 Review of Systems ENT Reports neck pain Musc Reports arthralgias, Reports joint swelling and Reports neck pain Physical Exam Vital Signs: Last Vital Signs Temp 97.7 F 09/15/23 07:36 Pulse 97 09/15/23 07:36 BP 102/70 09/15/23 07:36 Pulse Ox 97 09/15/23 07:36 Oxygen Delivery Method Room Air 09/15/23 07:36 BMI result Body Mass Index 28.5 Const General: cooperative, healthy appearing and comfortable Orientation/consciousness: patient oriented x3 Limitations: no limitations Resp Effort & Inspection: normal respiratory effort and able to speak in complete sentences Neuro General: patient oriented x3 Extrem Other: Right 1st CMC joint tenderness Negative Stan's test on the right Tenderness upon palpation of the common extensor origin at the right lateral epicondyle with positive resisted wrist extension test Osteoarthritic changes of both hands with early Josefina's and Heberden's nodes Normal nailfold capillaroscopy Normal range of motion of her neck Negative Spurling's test bilaterally Assessment & Plan Assessment & Plan (1) Osteoarthritis of hands, bilateral: Code(s): M19.041 - Primary osteoarthritis, right hand; M19.042 - Primary osteoarthritis, left hand Qualifiers: Osteoarthritis type: primary Qualified Code(s): M19.041 - Primary osteoarthritis, right hand; M19.042 - Primary osteoarthritis, left hand (2) Right tennis elbow: Code(s): M77.11 - Lateral epicondylitis, right elbow Plan: Patient has a symptomatic right tennis elbow as well as pain in the right 1st CMC joint. I discussed nature of both conditions and different treatment options. Patient agreed to start OT for right tennis elbow and bilateral hand osteoarthritis. Try using Voltaren gel 4 times a day. I explained that if she becomes progressively symptomatic. She can call the office and we can consider bring her in for a tennis elbow and/or a 1st CMC joint injection Plan I spent 26 minutes reviewing patient's chart, evaluating patient, placing orders, counseling patient and documenting in the chart Orders: Orders OT Evaluation and Treatment Today M19.041 - Primary osteoarthritis, right hand, M19.042 - Primary osteoarthritis, left hand, M77.11 - Lateral epicondylitis, right elbow Coding Level of Care Code Est Pt Level 4 (38326) Diagnoses Primary osteoarthritis of both hands M19.041; M19.042 Osteoarthritis type: primary Right tennis elbow M77.11
[2023-09-15 07:36] VITALS: BP 102/70; PULSE 97; TEMP 36.5; O2SAT 97; BMI 28.5
== END 2023-09-15 08:01 | disposition home or self-care (01) ==
PROVIDERS: PCP Physician Assistant; Visit Provider Student in an Organized Health Care Education/Training Program
DX: M19.041 Primary osteoarthritis, right hand (principal); M19.042 Primary osteoarthritis, left hand; M77.11 Lateral epicondylitis, right elbow
CPT/HCPCS: 99214

== ENCOUNTER → 2023-09-15 07:18 | Outpatient (BNVA) | payer OTHER, SELFPAY | PROVIDERS: PCP Physician Assistant; Visit Provider Student in an Organized Health Care Education/Training Program ==

== ENCOUNTER 2023-11-10 07:00 | Outpatient (RCR) | payer OTHER, SELFPAY ==
--- NOTE | 2023-09-21 11:01 | MHC.OT.EP ---
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 She states that over the last 4-5 months she has been having pain and intermittent swelling on the outer aspect of her right forearm and right elbow pain that worsens with activity. She also reports pain in her both hand/wrists at the CMC joint, right worse than left. Upon assessment pt reports difficulties with completing tasks at work such as washing scrubbing, and mopping with a current pain in lateral elbow of 7. 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 She would benefit from OT services to address pain, strength, sleep and activity modifications. Frequency and Duration: The patient will be seen 2x/wk/4 wks Short Term Goals: Ind with HEP Ind with CFB use Pain <3 with activities Ind with self/ice massage techniques Natural Resources Manager Goals: QuickDash score <30 Pain free with activities/work Gross Grasp R hand >60 Treatment Plan: Therapeutic Exercise Therapeutic Activity Home Exercise Program Splinting Patient Education Edema Control ADL Training Ultrasound Iontophoresis Paraffin Fluidotherapy MHP Cold Packs Joint Mobilization Soft Tissue Mobilization Kinesiotaping Continue OT POC, address OA next visit Electronically Signed By: Nubia Story OT/s Therapist Signature: Marcia Shepard OTR/L CHT Please Sign and return to therapist. Thank you once again for your referral.
--- NOTE | 2023-11-10 13:55 | MHC.OT.DC ---
[address] [phone] F: [phone] Occupational Therapy Discharge Note Patient Name: Katlyn Shaikh Provider: Janes Aguilera Diagnosis: B/L OA, R lateral epicondylitis Date of Evaluation: 09/21/23 Date of Discharge: 11/10/23 Treatments to Date: 10 Discharge Status: Achieved Goals Improved Function Independent with HEP Discharge Summary: Katlyn was referred to OT w/ hand pain due to OA and right laeral epicondylitis. She is doing well over all and has met therapy goals. Mild pain in right lateral elbow and right hand occasionally w/ more demanding work tasks, but no longer radiating into forearm. Sleep is much improved and she is able to do daily home activities w/ ease. Katlyn is Ind w/ home program and good understanding of activity modification and joint protection for cont'd self management. Electronically Signed By: KO Vincent/Cate ALANIS Reviewed/agree with student documentation: Therapist: KO Vincent/Cate ALANIS Please Sign and return to therapist, thank you for your referral.
== END 2023-11-10 13:56 | disposition home or self-care (01) ==
LOC: HO.OT 07:00
PROVIDERS: PCP Internal Medicine; Visit Provider Student in an Organized Health Care Education/Training Program
DX: M19.041 Primary osteoarthritis, right hand (principal); M19.042 Primary osteoarthritis, left hand; M77.11 Lateral epicondylitis, right elbow
CPT/HCPCS: 29130; 97033; 97110; 97140; 97166; 97760

== ENCOUNTER 2023-11-17 14:54 | Outpatient (REF) | payer OTHER, SELFPAY ==
--- NOTE | ~2023-11-17 | US_ITS ---
EXAMINATION: US VENOUS WITH DOPPLER UPPER EXTREMITY, LEFT CLINICAL INFORMATION: Pain in left arm COMPARISON: None available. TECHNIQUE: Ultrasound of the upper extremity is performed using compression sonography and color and pulse Doppler flow with assessment of augmentation of flow. There is also imaging and Doppler assessment of the jugular and subclavian veins. Spectral analysis with color-flow imaging is performed. FINDINGS: Respiratory variation normal compression flow are noted throughout the upper extremity including the brachial, basilic, cephalic and radial and ulnar veins. There is normal flow in the internal jugular, subclavian and axillary veins There is no visible deep or superficial thrombophlebitis. US/US venous duplex UE LT IMPRESSION: No DVT demonstrated in the left upper extremity
== END 2023-11-17 14:55 | disposition home or self-care (01) ==
LOC: HO.US 14:54
PROVIDERS: Visit Provider Internal Medicine
DX: M79.602 Pain in left arm (principal)
CPT/HCPCS: 93971

== ENCOUNTER 2023-11-22 09:53 | Outpatient (REF) | payer OTHER, SELFPAY ==
--- NOTE | ~2023-11-22 | US_ITS ---
EXAMINATION: US EXTRACRANIAL CAROTID DUPLEX, BILATERAL CLINICAL INFORMATION: Cervicalgia COMPARISON: None available. TECHNIQUE: Real-time ultrasound and Doppler techniques (integrating B-mode 2-D vascular images, Doppler spectral analysis and color-flow Doppler imaging) were utilized to interrogate the extracranial carotid arteries, the vertebral arteries and proximal subclavian arteries bilaterally. The degree of stenosis is determined by criteria similar to NASCET. FINDINGS: Right Side: 1. There is no atherosclerotic plaque seen in the bifurcation/proximal ICA region. 2. The common carotid artery PSV proximally is 93.8 cm/s and distally 68.0 cm/s. 3. The proximal internal carotid artery velocities are 83.8 cm/s systolic and 27.6 cm/s diastolic. 4. The proximal external carotid artery PSV is 101 cm/s. 5. The vertebral artery shows antegrade flow. 6. The subclavian artery waveforms are normal. Left Side: 1. There is no atherosclerotic plaque seen in the bifurcation/proximal ICA region. 2. The common carotid artery PSV proximally is 97.9 cm/s and distally 63.3 cm/s. 3. The proximal internal carotid artery velocities are 96.2 cm/s systolic and 38.1 cm/s diastolic. 4. The proximal external carotid artery PSV is 82.6 cm/s. 5. The vertebral artery shows antegrade flow. 6. The subclavian artery waveforms are normal. US/US carotid duplex BI IMPRESSION: 1. RIGHT: Normal right internal carotid artery without atherosclerotic plaque or hemodynamically significant stenosis. 2. LEFT: Normal left internal carotid artery without atherosclerotic plaque or hemodynamically significant stenosis.
== END 2023-11-22 09:54 | disposition home or self-care (01) ==
LOC: HO.US 09:53
PROVIDERS: PCP Internal Medicine; Visit Provider Internal Medicine
DX: M54.2 Cervicalgia (principal)
CPT/HCPCS: 93880

== ENCOUNTER 2023-12-12 14:26 | Outpatient (AMB) | payer OTHER, SELFPAY ==
--- NOTE | 2023-12-12 14:32 | A.OFFVIS_ITS ---
Intake Vital Signs 12/12/23 14:34 Height 5 ft 9 in Weight 185 lb BMI 27.3 BP 112/70 Blood Pressure Location Lt brachial Position Sitting Pulse 78 Intake Visit Reasons: 6 month fu Intake Note: Patient 6 month follow up for hemorrhoids. Patient cc: hemorrhoids, sinus infection, between diarrhea and constipation. Denies any other GI issues. Director Of Enterprise Applications Required: No Accompanied by: Self / Same As Patient Allergies shrimp [SHRIMP] Allergy (Severe, Verified 12/12/23 14:32) Anaphylaxis latex [LATEX] Allergy (Unknown, Verified 12/12/23 14:32) RASH levofloxacin [From LEVAQUIN] Allergy (Unknown, Verified 12/12/23 14:32) AGITATION morphine [MORPHINE] Allergy (Unknown, Verified 12/12/23 14:32) HEADACHES Sulfa (Sulfonamide Antibiotics) [SULFA (SULFONAMIDE ANTIBIOTICS)] Allergy (Unknown, Verified 12/12/23 14:32) HIVES adhesives Adverse Reaction (Intermediate, Uncoded 09/15/23 07:39) rash HPI 6 month fu HPI Details 48 yr old f w/ hx of CRC here for f/u RECAP: She has been having on and off constipation can have bouts of diarrhea as well she has concerns about hemorrhoid and stool around the hemorrhoid being stuck she has been these varying bouts she tried metamucil and had severe diarrhea she uses cholestyramine but not needed it recently Endoscopies and path: EGD/colonoscopy: 10/2022 Endoscopy Findings: mild esophagitis fundic gland polyps Colonoscopy Findings: polyps internal hemorrhoids diverticular disease melanosis coli Path: A. Duodenum, biopsy: Small intestinal mucosa within normal limits. B. Stomach, biopsy: Oxyntic mucosa with mild chronic inactive inflammation; no Helicobacter organisms seen. C. EG junction, biopsy: - Cardiofundic-type mucosa with mild chronic inactive inflammation; no intestinal metaplasia seen. - Squamous mucosa within normal limits. D. Colon, ascending, polypectomies: Tubular adenomata; negative for high-grade dysplasia or carcinoma. INTERIM: she has issues with hemorrhoids, she is holding off on surgical treatments father has cancer and she is stressed out due to this appetite is good weight has been up and down trying to pay more attention to diet probiotics help her a lot, she is taking align she could have lactose intolerance and switched to almond milk PPI works well for her GERD trying to stop smoking on wellbutrin EXAM: GENERAL: The patient is well developed and nontoxic. VITAL SIGNS:see workflow HEENT: Nonicteric sclerae, PERRLA, EOMI. Oropharynx clear. Moist mucous membranes. Conjunctivae appear well perfused. No thyroid mass. CHEST: Chest wall is nontender. HEART: Regular rate and rhythm without murmurs. LUNGS: Clear to auscultation bilaterally. ABDOMEN: Soft, positive bowel sounds, nontender, no organomegaly.no flank tenderness SKIN: No rash, no excessive bruising, petechiae, or purpura. NEUROLOGIC: Cranial nerves II-XII intact without motor/sensory deficit. Psych: nml affect A/P: 1/ Hemorrhoids, worried about these impe ding her stool outflow --seeing surgery- 2/ hx of CRC and polyps 3/ esophagitis wrong timing of PPI, usin g e-cig PLAN: 1/ repeat colonoscopy due this year--she will schedule later in the year, cont with probiotics and fiber PFSH Medical History Retrognathia Vaginal discharge Hemorrhoids with complication COVID-19 Breast pain Shortness of breath PVC (premature ventricular contraction) PAC (premature atrial contraction) Colon cancer DVT (deep venous thrombosis) Surgical History Hx of colonoscopy History of esophagogastroduodenoscopy (EGD) H/O knee surgery History of colon surgery Family History Mother High blood pressure COPD (chronic obstructive pulmonary disease) History of four vessel coronary artery bypass graft Mental health disorder Father High blood pressure Social History Housing: House Alcohol intake: current Alcohol intake frequency: holidays/special occasions only Alcohol type: wine Patient Tobacco Use Status: Former Tobacco user Quit Date: 13 years ago Tobacco use type: Smokeless Tobacco e-Cigarette/Vaping Use: Currently Using Second Hand Smoke Exposure: No service: No Current occupational status: employed 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
[2023-12-12 14:34] VITALS: BP 112/70; PULSE 78; BMI 27.3
== END 2023-12-12 15:06 | disposition home or self-care (01) ==
PROVIDERS: PCP Internal Medicine; Visit Provider Internal Medicine Gastroenterology
DX: K64.8 Other hemorrhoids (principal)
CPT/HCPCS: 99213

== ENCOUNTER → 2023-12-12 14:26 | Outpatient (BNVA) | payer OTHER, SELFPAY | PROVIDERS: PCP Internal Medicine; Visit Provider Internal Medicine Gastroenterology ==

== ENCOUNTER 2023-12-18 09:40 | Emergency (ER) | payer OTHER, SELFPAY ==
--- NOTE | ~2023-12-18 | CT_ITS ---
EXAMINATION: CT ABDOMEN AND PELVIS WITH CONTRAST CLINICAL INFORMATION: Abdominal pain COMPARISON: CT abdomen pelvis 01/08/2020. Pelvic ultrasonography 06/11/2021. TECHNIQUE: Multidetector volumetric images were obtained from the superior aspect of the liver through the pubic symphysis following administration 100 mL of Omnipaque 350 intravenous contrast. Sagittal and coronal reformatted images were obtained on the technologist's workstation. Oral contrast: No This CT examination was performed using dose optimization techniques as appropriate, variously including the following: *Automated exposure control *Adjustment of mA and/or kV according to patient size (this includes techniques or standardized protocols for targeted exams where dose is matched to indication/reason for exam; i.e. extremities or head) *Use of iterative reconstruction technique DLP: 634 mGy-cm FINDINGS: LUNG BASES: The visualized lung bases are unremarkable. LIVER, GALLBLADDER, AND BILIARY TREE: The liver is normal in size, shape, and attenuation. No focal hepatic lesion or biliary ductal dilatation is present. The gallbladder is unremarkable with no evidence of radiopaque gallstones, gallbladder wall thickening, or obvious pericholecystic inflammatory changes. PANCREAS: Unremarkable. SPLEEN: The spleen measures 14 cm in maximum dimension, unchanged compared with 01/08/2020 consistent with mild splenomegaly. ADRENAL GLANDS: Unremarkable. KIDNEYS AND URETERS: Focal cortical atrophy of the inferior pole the left kidney is again noted and is consistent with chronic parenchymal scarring unchanged compared with 01/08/2020. 4 punctate calcifications measuring up to 3 mm diameter present within the right renal pelvis centered within the superior right renal pelvis. 8 punctate calculi are identified within the left renal pelvis, the largest measuring 4.5 mm x 4 mm and located within the superior pole the left kidney. Similar findings were present on the comparison exam of 01/08/2020. No hydronephrosis or perinephric inflammatory changes identified. Bilaterally symmetric nephrographic enhancement is noted. A 1.1 cm rounded low-density focus is present in the inferior pole the right kidney and is most consistent with a benign, simple cyst requiring no additional imaging follow-up. No ureterectasis visualized. No ureteral calculi noted. BLADDER: Decompressed. No mural contour abnormalities. GASTROINTESTINAL TRACT: Anastomotic sutures are noted in the rectosigmoid region similar to findings present 01/08/2020. The appendix is normal in appearance. The descending colon is collapsed and demonstrates diffuse mural thickness of up to 9 mm in width, above normal limits in size. Findings extend into the splenic flexure and distal transverse colon. No intestinal dilatation noted. No free intraperitoneal fluid or gas collections visualized. The stomach is normal in appearance. Normal appearance of the duodenum. No inflammatory changes of the sigmoid or small bowel mesentery noted. ABDOMINAL WALL: No significant hernia is appreciated. LYMPH NODES: Normal. VASCULAR: Normal abdominal aortic caliber. No vascular stenoses or occlusions identified. PELVIC VISCERA: Uterus is anteverted. Intrauterine device in situ is noted. A 3.4 cm diameter rounded unilocular-appearing cyst is present in the left adnexal region. OSSEOUS STRUCTURES: A limbus deformity of the L3 vertebral body is again noted. No vertebral body compression deformities or suspicious focal osseous lesions identified. CT/CT abdomen pelvis w IV con IMPRESSION: *No definitive acute abnormalities identified. *Single 3.4 cm left adnexal cyst. In the absence of referral symptomatology, this cyst is overwhelmingly likely to represent a benign functional cyst for which no followup imaging recommended. If symptomatology refers to the left adnexal region, this finding may be further evaluated with pelvic ultrasonography. *Multiple bilateral nonobstructing renal calculi measuring up to 4.5 mm maximum dimension. No hydronephrosis. No perinephric inflammatory changes or fluid collections. *Chronic parenchymal scarring of the inferior pole the left kidney unchanged compared with 01/08/2020. *Rectosigmoid anastomotic sutures in situ similar findings present 01/08/2020. *Borderline splenomegaly. The spleen measures 14 cm in maximum dimension. Findings are unchanged compared with 01/08/2020. Typically the spleen measures up to 12 mm in maximum dimension in female patients with 14 cm in maximum dimension considered the upper limits of normal size in certain radiology references.
[2023-12-18 09:55] VITALS: BP 132/79; PULSE 84; RESP 18; TEMP 36.6; O2SAT 98; BMI 28.1
[2023-12-18 10:12] LABS: MANUAL DIFF FLAG NO
[2023-12-18 10:13] LABS: Basophils Percent Auto 0.2 % (0-2); Eosinophils Percent Auto 0.1 % (0-4); Hematocrit 40.8 % (37.0-47.0); Hemoglobin 14.1 g/dl (12.0-16.0); Imm Gran Abs Auto 0.04 X10*3/uL (0.00-0.03); Imm Gran Pct Auto 0.2 % (0.0-0.4); Lymphocytes Absolute Auto 1.2 X10*3/uL (1.2-4.9); Lymphocytes Percent Auto 7.7 % (20-40); Mean Corpuscular HGB Conc 34.6 g/dl (31.0-35.0); Mean Corpuscular Hemoglobin 31.3 pg (27.0-33.0); Mean Corpuscular Volume 90.7 fL (80.0-98.0); Mean Platelet Volume 10.3 fL (9.4-12.3); Monocytes Absolute Auto 1.4 X10*3/uL (0.1-1.2); Monocytes Percent Auto 8.3 % (2-11); Neutrophils Absolute Auto 13.5 x10*3/uL (2.0-8.3); Neutrophils Percent Auto 83.5 % (45-73); Platelet Count 190 X10*3/uL (160-400); Red Cell Distribution Width 12.5 % (11.0-16.0); White Blood Count 16.2 X10*3/uL (4.8-10.8)
[2023-12-18 10:15] LABS: Appearance Urine Clear; Color Urine Yellow; Glucose Urine UA Negative (Negative); Leukocyte Esterase Urine Negative (Negative); Nitrite Urine Negative (Negative); Specific Gravity - Urine 1.015 (1.005-1.025); UPreg QC Valid YES; Urine Blood Negative (Negative); Urine Ketones Negative (Negative); Urine Pregnancy NEGATIVE (NEGATIVE); Urine Protein Negative (Neg-Trace)
[2023-12-18 10:32] LABS: COVID-19 Test Negative (Negative); IDNOW Serial# 08D9AD1C; IDNOW Serial# 152EDE1D; Influenza A Negative (Negative); Influenza B2 Negative (Negative)
[2023-12-18 10:38] LABS: Alanine Aminotransferase 21 U/L (0-31); Albumin Level 4.4 g/dL (3.5-5.0); Alkaline Phosphatase 67 U/L (39-117); Anion Gap 12 (12-20); Aspartate Amino Transferase 16 U/L (5-31); Bilirubin Direct 0.3 mg/dL (0.0-0.5); Bilirubin Total 0.7 mg/dL (0.0-1.0); Blood Urea Nitrogen 14 mg/dL (9-16); Calcium 9.2 mg/dL (8.4-10.2); Carbon Dioxide 27 mmol/L (22-29); Chloride 101 mmol/L (96-108); Creatinine Clr Calc Pharmacy 92.7; Estimated Glomerular Filt Rate > 60; Glucose Random 99 mg/dL (60-115); Lipase 20 U/L (8-78); Potassium 3.8 mmol/L (3.3-5.1); Sodium 136 mmol/L (135-145); Total Protein 7.8 g/dL (6.5-8.0)
--- NOTE | 2023-12-18 10:38 | ED.GENADULT ---
HPI - General Adult General Chief complaint: Abdominal Pain Stated complaint: Lower abd pain Time Seen by Provider: 12/18/23 10:37 Source: patient Mode of arrival: ambulatory Limitations: no limitations History of Present Illness HPI narrative: Patient is a 47 year old assigned female at with a history of colon cancer status post resection presenting to the emergency department today with lower abdominal pain, fever, and diarrhea. Patient states that since last night she has been having lower abdominal pain, fever, and diarrhea. Patient states that she had a sinus infection last week and was given Augmentin. Patient denies any dizziness, lightheadedness, nausea, vomiting, chills, blurry vision, double vision, loss of vision, chest pain, difficulty breathing, shortness of breath, back pain, night sweats, pain with urination, increased urinary frequency, increased urinary urgency, blood in her urine or stool, syncope or a near syncopal episode, recent trauma or falls, bowel incontinence, bladder incontinence, bowel retention, bladder retention, or any other complaints at this time. Onset (ago): day(s) (1) Location: abdomen Radiation: non-radiation Severity: mild Severity scale (1-10): 3 Pain Consistency: constant Relieving factors: none Exacerbating factors: none Associated symptoms: fever/chills Treatments prior to arrival: other (immodium) Related Data Home Medications Medication Instructions Recorded Confirmed levonorgestrel 21 mcg/24 hours (8 20 mcg intrauterine DIRECTED 05/21/21 08/23/23 yrs) 52 mg intrauterine device contraception (Mirena) rivaroxaban 10 mg tablet (Xarelto) 10 mg PO DAILY 05/03/23 08/23/23 fexofenadine 180 mg tablet 180 mg PO DAILY 08/23/23 08/23/23 (Keeley Allergy) Previous Rx's Medication Instructions Recorded albuterol sulfate 90 mcg/actuation 1 inh inhalation QID PRN shortness 03/06/21 aerosol inhaler of breath or wheezing #6.7 grams azelastine 0.05 % eye drops 1 drp ophthalmic (eye) BID #6 mL 10/10/21 ipratropium bromide 21 mcg (0.03 2 spray intranasal BID PRN allergy 03/01/23 %) nasal spray symptoms 30 days #30 mL omeprazole 20 mg capsule,delayed 20 mg PO DAILY #90 caps 03/27/23 release CPAP (CPAP Machine/Device) #1 ea 04/25/23 bupropion HCl 300 mg 24 hr tablet, 300 mg PO QAM 90 days #90 tabs 06/15/23 extended release Allergies Allergy/AdvReac Type Severity Reaction Status Date / Time shrimp [SHRIMP] Allergy Severe Anaphylaxis Verified 12/18/23 09:55 latex [LATEX] Allergy Unknown RASH Verified 12/18/23 09:55 levofloxacin [From LEVAQUIN] Allergy Unknown AGITATION Verified 12/18/23 09:55 morphine [MORPHINE] Allergy Unknown HEADACHES Verified 12/18/23 09:55 Sulfa (Sulfonamide Allergy Unknown HIVES Verified 12/18/23 09:55 Antibiotics) [SULFA (SULFONAMIDE ANTIBIOTICS)] adhesives AdvReac Intermediate rash Uncoded 12/18/23 09:55 Review of Systems Constitutional: Constitutional: Reports no additional constitutional complaints, Denies chills, Reports fever(s) and Denies night sweats Eyes: Eyes: Reports no additional eye complaints, Denies blurry vision, Denies change in vision, Denies diplopia, Denies eye discharge, Denies loss of vision and Denies eye pain ENT: Denies dizziness Cardiovascular: Cardiovascular: Reports no additional cardiovascular complaints, Denies chest pain, Denies lightheadedness, Denies Loss of Consciousness and Denies dyspnea Respiratory: Respiratory: Reports no additional respiratory complaints and Denies dyspnea Gastrointestinal: Gastrointestinal: Reports no additional gastrointestinal complaints, Reports abdominal pain, Denies melena, Denies hematochezia, Denies change in bowel habits, Denies change in stool character, Reports diarrhea and Denies vomiting Genitourinary: Genitourinary: Denies hematuria, Denies urinary frequency, Denies dysuria, Denies urinary incontinence, Denies urinary hesitancy and Denies urinary urgency Musculoskeletal: Musculoskeletal: Reports no additional musculoskeletal complaints, Denies numbness and Denies tingling Neurologic: Denies dizziness, Denies loss of vision, Denies numbness and Denies tingling Psychiatric: Psychiatric: Reports no additional psychiatric complaints Endocrine: Endocrine: Reports no additional endocrine complaints Hematologic/Lymphatic: Hematologic/Lymphatic: Reports no additional hematologic/lymphatic complaints Allergic/Immunologic: Allergic/Immunologic: Reports no additional allergic/immunologic complaints PMFSH Past Medical History Attestation statement: The following information was validated with the patient. Source: old records reviewed and nursing notes reviewed Medical History Left arm pain Neck pain Vaginal discharge Rash Subconjunctival hemorrhage of left eye Upper respiratory tract infection Physical exam Sinus infection Myalgia Right wrist pain Right shoulder pain Screen for STD (sexually transmitted disease) Retained tampon COVID-19 Conjunctivitis Well woman exam Heart palpitations Shortness of breath Retrognathia Hemorrhoids with complication Breast pain Shortness of breath PVC (premature ventricular contraction) PAC (premature atrial contraction) Colon cancer DVT (deep venous thrombosis) Surgical History Hx of colonoscopy History of esophagogastroduodenoscopy (EGD) H/O knee surgery History of colon surgery Family History Family History Mother High blood pressure COPD (chronic obstructive pulmonary disease) History of four vessel coronary artery bypass graft Mental health disorder Father High blood pressure Social History Social History Housing: House Alcohol intake: current Alcohol intake frequency: holidays/special occasions only Alcohol type: wine Patient Tobacco Use Status: Former Tobacco user Quit Date: 13 years ago Tobacco use type: Smokeless Tobacco e-Cigarette/Vaping Use: Currently Using Second Hand Smoke Exposure: No Advance Directives: No service: No Current occupational status: employed 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 Current occupational exposures/hazards: No Cognitive needs: No Hearing needs: No Vision needs: No Physical Exam ED Vital Signs: Vital Signs - 24 hr 12/18/23 09:55 Temperature 98 F Pulse Rate 84 Respiratory Rate 18 Blood Pressure 132/79 Pulse Oximetry 98 Oxygen Delivery Method Room Air BMI result Body Mass Index 28.1 Const General: cooperative, no acute distress, alert and awake Nutritional Appearance: well nourished Orientation/consciousness: patient oriented x3 Limitations: no limitations HENMT Head: Yes normal to inspection and Yes atraumatic Ears: hearing grossly normal bilaterally and external ears normal General nose exam: Normal external nose present, no nasal discharge noted and no epistaxis Face and sinus: Yes normal facial exam, No abrasion and No laceration Mouth: Normal oral and palatal mucosa present, no drooling and no muffled voice Eyes General: appearance normal, both eyes and all related structures Periorbital: periorbital findings normal Eyelids: Yes eyelids normal Conjunctivae: conjunctivae normal Pupils: Equal, round and reactive pupils present EOM: EOMs intact bilaterally Neck Neck: Yes normal visual inspection, Yes full ROM and Yes no lymphadenopathy Chest Chest palpation & inspection: normal inspection of the chest Resp Effort & Inspection: normal respiratory effort and able to speak in complete sentences GI Inspection: Yes normal to inspection Palpation (GI): Soft to palpation, not firm, nontender and no guarding Neuro General: patient oriented x3 and moves all extremities Cranial nerves: Yes Equal, round and reactive pupils present Cognition (Neuro): normal cognition Motor exam (neuro): 5/5 motor strength present throughout Sensory Exam: Normal double simultaneous stimulation for sensation Coordination: [id number] test normal Extrem General: Yes normal to inspection, Yes full ROM and Yes capillary refill normal Psych Appearance: grossly normal Mental Status: mental status grossly normal Affect: normal affect Attitude: cooperative Thought process: Normal thought process present Thought content: Normal thought content present Insight: Good insight present (Psych) Medications Administered Discontinued Medications Generic Name Dose Route Start Last Admin Trade Name Freq PRN Reason Stop Dose Admin Iohexol 85 ml 12/18/23 11:20 12/18/23 11:20 Iohexol 350 Mg/Ml 100 Ml Infus..Btl IV 12/18/23 11:21 85 ml ONCE ONE Administration Medical Decision Making Medical Decision Making [facility] Narrative: Patient is a 48 year old assigned female at with a history of colon cancer status post resection presenting to the emergency department today with abdominal pain, diarrhea, and a fever. Patient's physical exam was unremarkable. Patient's blood work showed an elevated WBC count of 16.2 but were otherwise unremarkable. Patient's urine showed no acute process. Patient's CT abdomen pelvis showed a 3.4cm left benign functional ovarian cyst, multiple bilateral kidney stones with no hydro, borderline splenomegaly, and colonic thickening consistent with infectious colitis. Given patient's recent antibiotic use, I got a stool culture that was negative and attempted to get a c.diff sample however, the patient was unable to provide enough for it. Patient's clinical presentation is most consistent with colitis. I explained my physical exam findings as well as all test results to the patient. I answered all questions asked by the patient. I stressed the importance of the patient taking her medication as prescribed. I stressed the importance of the patient following up with her primary care provider. I stressed the importance of the patient returning to the emergency department immediately if her symptoms were to worsen or if she were to develop any dizziness, shortness of breath, difficulty breathing, chest pain, blurry vision, loss of vision, nausea, vomiting, abdominal pain, fever, chills, back pain, or any other complaints. Patient verbalized agreement and understanding with this treatment plan and discharge. Differential Diagnosis Differential Diagnoses: The differential diagnosis associated with the presentation includes appendicitis cholecystitis cholelithiasis biliary colic gastritis colitis c.diff Admission/Observation Consideration of admission/observation: Escalation of care including admission/observation considered Patient would have been admitted to the hospital had her work up had any findings where hospital admission was appropriate and her clinical presentation warranted hospital admission. Lab Data [facility] Lab Attestation statement: I reviewed the patient's lab results. My interpretation of these results are in the [facility] Rationale portion of this note. 12/18/23 10:07 12/18/23 10:07 Labs: Lab Results 12/18/23 12/18/23 Range/Units 10:07 14:07 WBC 16.2 H (4.8-10.8) X10*3/uL RBC 4.50 (4.20-5.50) X10*6/uL Hgb 14.1 (12.0-16.0) g/dl Hct 40.8 (37.0-47.0) % MCV 90.7 (80.0-98.0) fL MCH 31.3 (27.0-33.0) pg MCHC 34.6 (31.0-35.0) g/dl RDW 12.5 (11.0-16.0) % Plt Count 190 (160-400) X10*3/uL MPV 10.3 (9.4-12.3) fL Immature Gran % (Auto) 0.2 (0.0-0.4) % Neut % (Auto) 83.5 H (45-73) % Lymph % (Auto) 7.7 L (20-40) % Upton % (Auto) 8.3 (2-11) % Eos % (Auto) 0.1 (0-4) % Baso % (Auto) 0.2 (0-2) % Lymph # (Auto) 1.2 (1.2-4.9) X10*3/uL Upton # (Auto) 1.4 H (0.1-1.2) X10*3/uL Eos # (Auto) 0.0 (0.0-0.4) X10*3/uL Baso # (Auto) 0.0 (0.0-0.2) X10*3/uL Abs Immat Gran (auto) 0.04 H (0.00-0.03) X10*3/uL Absolute Neuts (auto) 13.5 H (2.0-8.3) x10*3/uL Absolute Nucleated RBC 0.000 (0.0-0.012) X10*3/uL Nucleated RBC % (auto) 0.0 (0.0-0.2) /100WBC Sodium 136 (135-145) mmol/L Potassium 3.8 (3.3-5.1) mmol/L Chloride 101 (96-108) mmol/L Carbon Dioxide 27 (22-29) mmol/L Anion Gap 12 (12-20) BUN 14 (9-16) mg/dL Creatinine 0.86 (0.5-1.4) mg/dL Estim Creat Clear Calc 92.7 Estimated GFR > 60 Random Glucose 99 (60-115) mg/dL Calcium 9.2 (8.4-10.2) mg/dL Total Bilirubin 0.7 (0.0-1.0) mg/dL Direct Bilirubin 0.3 (0.0-0.5) mg/dL AST 16 (5-31) U/L ALT 21 (0-31) U/L Alkaline Phosphatase 67 (39-117) U/L Total Protein 7.8 (6.5-8.0) g/dL Albumin 4.4 (3.5-5.0) g/dL Lipase 20 (8-78) U/L Urine Color Yellow Urine Appearance Clear Urine pH 6.0 (5.0-9.0) Ur Specific [place] 1.015 (1.005-1.025) Urine Protein Negative (Neg-Trace) mg/dL Urine Glucose (UA) Negative (Negative) mg/dL Urine Ketones Negative (Negative) mg/dL Urine Blood Negative (Negative) Urine Nitrite Negative (Negative) Ur Leukocyte Esterase Negative (Negative) Urine Test NEGATIVE (NEGATIVE) Stl C. cayetanensis PCR Not Detected (Not Detect.) Stool Rotavirus A PCR Not Detected (Not Detect.) Stl Adenov F 40/41 PCR Not Detected (Not Detect.) Stool Astrovirus (PCR) Not Detected (Not Detect.) Stool Campylobacter PCR Not Detected (Not Detect.) Stool Cryptosporidium PCR Not Detected (Not Detect.) Stl Sh Tox Pr E STEC PCR Not Detected (Not Detect.) Stool E coli O157 PCR Not applicable (Not Detect.) Stl Enterotoxigenic E PCR Not Detected (Not Detect.) Stool EPEC (PCR) Not Detected (Not Detect.) Stool EAEC (PCR) Not Detected (Not Detect.) Stl E. histolytica PCR Not Detected (Not Detect.) Stool Giardia Lamblia PCR Not Detected (Not Detect.) Stl P. shigelloides PCR Not Detected (Not Detect.) Stool Salmonella PCR Not Detected (Not Detect.) Stool Sapovirus (PCR) Not Detected (Not Detect.) Stl Shigella/EIEC PCR Not Detected (Not Detect.) St Y.enterocolitica PCR Not Detected (Not Detect.) Stool Vibrio (PCR) Not Detected (Not Detect.) Stl Vibrio cholerae PCR Not Detected (Not Detect.) Stl Norovirus GI/GII PCR Not Detected (Not Detect.) COVID-19 (MELONIE) Negative (Negative) COVID-19 Clin Com See Note Influenza Type A (RASHI) Negative (Negative) Influenza Type B (RASHI) Negative (Negative) Influenza A & B Note See Note Independent Interpretation I performed an independent interpretation of an: CT Scan Interpretation: My interpretation is in agreement with the radiologist's impression of this imaging study. EXAMINATION: CT ABDOMEN AND PELVIS WITH CONTRAST CLINICAL INFORMATION: Abdominal pain COMPARISON: CT abdomen pelvis 01/08/2020. Pelvic ultrasonography 06/11/2021. TECHNIQUE: Multidetector volumetric images were obtained from the superior aspect of the liver through the pubic symphysis following administration 100 mL of Omnipaque 350 intravenous contrast. Sagittal and coronal reformatted images were obtained on the technologist's workstation. Oral contrast: No This CT examination was performed using dose optimization techniques as appropriate, variously including the following: *Automated exposure control *Adjustment of mA and/or kV according to patient size (this includes techniques or standardized protocols for targeted exams where dose is matched to indication/reason for exam; i.e. extremities or head) *Use of iterative reconstruction technique DLP: 634 mGy-cm FINDINGS: LUNG BASES: The visualized lung bases are unremarkable. LIVER, GALLBLADDER, AND BILIARY TREE: The liver is normal in size, shape, and attenuation. No focal hepatic lesion or biliary ductal dilatation is present. The gallbladder is unremarkable with no evidence of radiopaque gallstones, gallbladder wall thickening, or obvious pericholecystic inflammatory changes. PANCREAS: Unremarkable. SPLEEN: The spleen measures 14 cm in maximum dimension, unchanged compared with 01/08/2020 consistent with mild splenomegaly. ADRENAL GLANDS: Unremarkable. KIDNEYS AND URETERS: Focal cortical atrophy of the inferior pole the left kidney is again noted and is consistent with chronic parenchymal scarring unchanged compared with 01/08/2020. 4 punctate calcifications measuring up to 3 mm diameter present within the right renal pelvis centered within the superior right renal pelvis. 8 punctate calculi are identified within the left renal pelvis, the largest measuring 4.5 mm x 4 mm and located within the superior pole the left kidney. Similar findings were present on the comparison exam of 01/08/2020. No hydronephrosis or perinephric inflammatory changes identified. Bilaterally symmetric nephrographic enhancement is noted. A 1.1 cm rounded low-density focus is present in the inferior pole the right kidney and is most consistent with a benign, simple cyst requiring no additional imaging follow-up. No ureterectasis visualized. No ureteral calculi noted. BLADDER: Decompressed. No mural contour abnormalities. GASTROINTESTINAL TRACT: Anastomotic sutures are noted in the rectosigmoid region similar to findings present 01/08/2020. The appendix is normal in appearance. The descending colon is collapsed and demonstrates diffuse mural thickness of up to 9 mm in width, above normal limits in size. Findings extend into the splenic flexure and distal transverse colon. No intestinal dilatation noted. No free intraperitoneal fluid or gas collections visualized. The stomach is normal in appearance. Normal appearance of the duodenum. No inflammatory changes of the sigmoid or small bowel mesentery noted. ABDOMINAL WALL: No significant hernia is appreciated. LYMPH NODES: Normal. VASCULAR: Normal abdominal aortic caliber. No vascular stenoses or occlusions identified. PELVIC VISCERA: Uterus is anteverted. Intrauterine device in situ is noted. A 3.4 cm diameter rounded unilocular-appearing cyst is present in the left adnexal region. OSSEOUS STRUCTURES: A limbus deformity of the L3 vertebral body is again noted. No vertebral body compression deformities or suspicious focal osseous lesions identified. CT/CT abdomen pelvis w IV con IMPRESSION: *No definitive acute abnormalities identified. *Single 3.4 cm left adnexal cyst. In the absence of referral symptomatology, this cyst is overwhelmingly likely to represent a benign functional cyst for which no followup imaging recommended. If symptomatology refers to the left adnexal region, this finding may be further evaluated with pelvic ultrasonography. *Multiple bilateral nonobstructing renal calculi measuring up to 4.5 mm maximum dimension. No hydronephrosis. No perinephric inflammatory changes or fluid collections. *Chronic parenchymal scarring of the inferior pole the left kidney unchanged compared with 01/08/2020. *Rectosigmoid anastomotic sutures in situ similar findings present 01/08/2020. *Borderline splenomegaly. The spleen measures 14 cm in maximum dimension. Findings are unchanged compared with 01/08/2020. Typically the spleen measures up to 12 mm in maximum dimension in female patients with 14 cm in maximum dimension considered the upper limits of normal size in certain radiology references. Dictated By: Catrachito Lemons MD Signed By: Electronically signed by Catrachito Lemons MD 12/18/23 4457 Radiology Impression Discussion of test interpretation with radiology: I have reviewed the radiologist's reading. Critical Care Time Critical Care Time Critical Care Time: Yes Total Critical Care Time: 45 Attestation: I spent 45 minutes of Critical Care Time with this patient. This does not include time spent on separately reported billable procedures. Discharge Plan Discharge Clinical Impression: Colitis Patient Disposition: Home, Self-Care Instructions: Colitis (ED) Additional Instructions: Follow up with your primary care provider. Return to the emergency department immediately if your symptoms worsen or if you develop any dizziness, shortness of breath, difficulty breathing, chest pain, blurry vision, loss of vision, nausea, vomiting, abdominal pain, fever, chills, back pain, or any other complaints. Prescriptions: No Action albuterol sulfate 90 mcg/actuation HFA aerosol inhaler 1 inh inhalation QID PRN (Reason: shortness of breath or wheezing) Qty: 6.7 3RF omeprazole 20 mg capsule,delayed release(DR/EC) 20 mg PO DAILY Qty: 90 3RF (DME) CPAP Machine/Device Device See Rx Instructions .Route Qty: 1 0RF Rx Instructions: As directed azelastine 0.05 % drops 1 drp ophthalmic (eye) BID Qty: 6 0RF ipratropium bromide 21 mcg (0.03 %) spray,non-aerosol 2 spray intranasal BID PRN (Reason: allergy symptoms) 30 Days Qty: 30 0RF Rx Instructions: administer into each nostril bupropion HCl 300 mg tablet extended release 24 hr 300 mg PO QAM 90 Days Qty: 90 1RF Mirena 20 mcg/24 hours (6 yrs) 52 mg intrauterine device 20 mcg intrauterine DIRECTED Xarelto 10 mg tablet 10 mg PO DAILY Rx Instructions: For flying only. fexofenadine [Keeley Allergy] 180 mg tablet 180 mg PO DAILY Referrals: Ailyn Fishman MD [Primary Care Provider] - Interventions: ED Discharge Assessment Last Done: 12/18/23 15:26 Discharge Date/Time: 12/18/23 15:26 Print Language: Fijian
[2023-12-18] MEDS: iohexoL 350 MG/ML 100 ML INFUS..BTL 85 ML IV (11:20)
[2023-12-18 15:44] LABS: Adenovirus F 40/41 Not Detected (Not Detect.); Astrovirus Not Detected (Not Detect.); Campylobacter Not Detected (Not Detect.); Cryptosporidium Not Detected (Not Detect.); Cyclospora cayetanensis Not Detected (Not Detect.); E. coli EAEC Not Detected (Not Detect.); E. coli EPEC Not Detected (Not Detect.); E. coli ETEC Not Detected (Not Detect.); E. coli STEC Not Detected (Not Detect.); Entamoeba histolytica Not Detected (Not Detect.); Giardia lamblia Not Detected (Not Detect.); Norovirus GI/GII Not Detected (Not Detect.); Plesiomonas shigelloides Not Detected (Not Detect.); Rotavirus A Not Detected (Not Detect.); Salmonella Not Detected (Not Detect.); Sapovirus Not Detected (Not Detect.); Shigella sp./EIEC Not Detected (Not Detect.); Vibrio Not Detected (Not Detect.); Vibrio Cholerae Not Detected (Not Detect.); Yersinia enterocolitica Not Detected (Not Detect.)
== END 2023-12-18 15:26 | disposition home or self-care (01) ==
PROVIDERS: Physician Assistant Medical; Emergency Provider Emergency Medicine Emergency Medical Services; PCP Internal Medicine
DX: K52.9 Noninfective gastroenteritis and colitis, unspecified (principal); R10.2 Pelvic and perineal pain; Z11.52 Encounter for screening for COVID-19; Z87.892 Personal history of anaphylaxis; Z79.899 Other long term (current) drug therapy
CPT/HCPCS: 74177; 80048; 80076; 81003; 81025; 83690; 85025; 87502; 87507; 87635; 99284; Q9967

== ENCOUNTER 2023-12-23 07:25 | Outpatient (REF) | payer OTHER, SELFPAY | END 2023-12-23 07:26 | disposition home or self-care (01) | LOC: HO.MAMMO 07:25 | PROVIDERS: PCP Internal Medicine; Visit Provider Internal Medicine | DX: Z12.31 Encounter for screening mammogram for malignant neoplasm of breast (principal) | CPT/HCPCS: 77063; 77067 ==

== ENCOUNTER → 2023-12-23 07:30 | Outpatient (BNV) | payer OTHER, SELFPAY | PROVIDERS: PCP Internal Medicine; Visit Provider Radiology Diagnostic Radiology | DX: Z12.31 Encounter for screening mammogram for malignant neoplasm of breast (principal) | CPT/HCPCS: 77063; 77067 ==

== ENCOUNTER 2024-01-10 10:40 | Outpatient (AMB) | payer OTHER, SELFPAY ==
--- NOTE | 2024-01-10 10:51 | MHC.OFFVIS ---
Intake Vital Signs 01/10/24 10:52 Height 5 ft 9 in BP 120/84 Intake Visit Reasons: ? vaginal infection Manager Target: Manager Target Present (Zee) Allergies shrimp [SHRIMP] Allergy (Severe, Verified 01/10/24 10:51) Anaphylaxis latex [LATEX] Allergy (Unknown, Verified 01/10/24 10:51) RASH levofloxacin [From LEVAQUIN] Allergy (Unknown, Verified 01/10/24 10:51) AGITATION morphine [MORPHINE] Allergy (Unknown, Verified 01/10/24 10:51) HEADACHES Sulfa (Sulfonamide Antibiotics) [SULFA (SULFONAMIDE ANTIBIOTICS)] Allergy (Unknown, Verified 01/10/24 10:51) HIVES Penicillins Adverse Reaction (Unknown, Verified 01/10/24 10:51) Itching adhesives Adverse Reaction (Intermediate, Uncoded 12/18/23 09:55) rash HPI HPI Comments History of Present Illness Details Patient is here today with complaints of vaginal burning she recently also noted a little cut at the perineal region that she has been using Vaseline on. She has a new intimate partner. History of colitis and recent antibiotics. Pelvic CT scan revealed an ovarian cyst she has an occasional discomfort. She reports a lot of breakthrough bleeding with her IUD. Occasional pelvic discomfort. She is interested in a uterine ablation. [facility] Medical History Left arm pain Neck pain Vaginal discharge Rash Subconjunctival hemorrhage of left eye Upper respiratory tract infection Physical exam Sinus infection Myalgia Right wrist pain Right shoulder pain Screen for STD (sexually transmitted disease) Retained tampon COVID-19 Conjunctivitis Well woman exam Heart palpitations Shortness of breath Retrognathia Hemorrhoids with complication Breast pain Shortness of breath PVC (premature ventricular contraction) PAC (premature atrial contraction) Colon cancer DVT (deep venous thrombosis) Surgical History Hx of colonoscopy History of esophagogastroduodenoscopy (EGD) H/O knee surgery History of colon surgery Family History Mother High blood pressure COPD (chronic obstructive pulmonary disease) History of four vessel coronary artery bypass graft Mental health disorder Father High blood pressure Social History Housing: House Alcohol intake: current Alcohol intake frequency: holidays/special occasions only Alcohol type: wine Patient Tobacco Use Status: Former Tobacco user Quit Date: 13 years ago Tobacco use type: Smokeless Tobacco e-Cigarette/Vaping Use: Currently Using Second Hand Smoke Exposure: No service: No Current occupational status: employed 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 Current occupational exposures/hazards: No Cognitive needs: No Hearing needs: No Vision needs: No Female Reproductive History Menstrual Age of Menarche: 10 Review of Systems Const All systems reviewed & are unremarkable except as noted in HPI and below Physical Exam Vital Signs: Last Vital Signs BP 120/84 01/10/24 10:52 Const General: cooperative, healthy appearing and no acute distress Orientation/consciousness: patient oriented x3 GI Inspection: Yes normal to inspection Palpation (GI): Soft to palpation and Other GI palpation findings present (Nontender) Rectal Exam - Female: visual inspection normal General: Yes bladder normal to palpation External Female Exam: normal appearance of the urethra Speculum Exam - Vagina: normal appearance of the vagina, normal palpation, normal vaginal discharge and vaginal bleeding (Brown watery) Speculum Exam - Cervix: normal appearance of the cervix, normal palpation and Other cervical findings present (IUD strings present) Bimanual exam- vagina & uterus: normal bimanual exam, normal palpation, uterine size normal, bladder normal to palpation, normal palpation, uterine shape normal and non-tender Bimanual Exam- Adnexa, other: normal adnexae OB/external & speculum: vaginal bleeding (Brown watery) Neuro General: patient oriented x3 Assessment & Plan Assessment & Plan (1) Vulvar burning: Code(s): N94.89 - Other specified conditions associated with female genital organs and menstrual cycle (2) Breakthrough bleeding associated with intrauterine device (IUD): Code(s): N92.1 - Excessive and frequent menstruation with irregular cycle; Z97.5 - Presence of (intrauterine) contraceptive device (3) Ovarian cyst: Code(s): N83.209 - Unspecified ovarian cyst, unspecified side Qualifiers: Laterality: left Qualified Code(s): N83.202 - Unspecified ovarian cyst, left side Plan Plan pelvic ultrasound to check on IUD placement, left ovarian cyst. Await results from BV GC chlamydia today. Avoid soap to the area, cleanse with water, avoid tight clothing. Return to the office for follow-up in person pending ultrasound report All of her questions and concerns were addressed to the best of my ability and shared decision making. She is agreeable to the plan of care. This note is constructed using voice recognition software. While every effort has been made to ensure accuracy, hospital receptionist errors may have been included. Orders: Orders CT NG by PCR Today N89.8 - Other specified noninflammatory disorders of vagina Bacterial Vaginosis Panel Today N89.8 - Other specified noninflammatory disorders of vagina US pelvic and transvaginal Today N83.209 - Unspecified ovarian cyst, unspecified side, Z30.431 - Encounter for routine checking of intrauterine contraceptive device Coding Level of Care Code Est Pt Level 4 (95432) Diagnoses Vulvar burning N94.89 Breakthrough bleeding associated with intrauterine device (IUD) N92.1; Z97.5 Cyst of left ovary N83.202 Laterality: left
[2024-01-10 10:52] VITALS: BP 120/84
== END 2024-01-10 11:25 | disposition home or self-care (01) ==
LOC: HO.HWS 10:41
PROVIDERS: PCP Internal Medicine; Visit Provider Advanced Practice Midwife
DX: N94.89 Other specified conditions associated with female genital organs and menstrual cycle (principal); N92.1 Excessive and frequent menstruation with irregular cycle; Z97.5 Presence of (intrauterine) contraceptive device; N83.202 Unspecified ovarian cyst, left side
CPT/HCPCS: 99214

== ENCOUNTER 2024-01-10 10:40 | Outpatient (REF) | payer OTHER, SELFPAY | END 2024-01-10 10:41 | disposition home or self-care (01) | LOC: HO.LNP 10:40 | PROVIDERS: PCP Internal Medicine; Visit Provider Advanced Practice Midwife | DX: Z13.89 Encounter for screening for other disorder (principal) ==

== ENCOUNTER 2024-01-10 11:07 | Outpatient (REF) | payer OTHER, SELFPAY ==
[2024-01-10 18:06] LABS: CT PCR NOT DETECTED (Not Detect.); NG PCR NOT DETECTED (Not Detect.)
[2024-01-11 14:48] LABS: BV Int Neg Control Negative (Negative); BV Int Pos Control Positive (Positive)
== END 2024-01-10 11:08 | disposition home or self-care (01) ==
LOC: HO.LAB 11:07
PROVIDERS: Visit Provider Advanced Practice Midwife
DX: N89.8 Other specified noninflammatory disorders of vagina (principal)
CPT/HCPCS: 0353U; 87480; 87510; 87660

== ENCOUNTER 2024-01-18 15:43 | Outpatient (REF) | payer OTHER, SELFPAY ==
--- NOTE | ~2024-01-18 | US_ITS ---
EXAMINATION: US PELVIS CLINICAL INFORMATION: Encounter for routine checking of intrauterine contraceptive device. COMPARISON: Pelvic ultrasound 06/11/2021. Pelvic CT 12/18/2023. TECHNIQUE: Ultrasound of the pelvis is performed using both transabdominal and transvaginal transducers along with Doppler. Transvaginal imaging is performed due to inadequate visualization transabdominally. FINDINGS: Uterus: The uterus measures 8.7 x 2.6 x 4.1 cm. The uterus is anteverted and anteflexed. There is an IUD which appears in appropriate position. Adnexa: The right ovary measures 3.3 x 1.7 x 2.2 cm, volume 6.5 mm. The left ovary measures 5.1 x 1.7 x 2.5 cm, volume 11.3 mL. Multiple simple appearing functional cysts in the left ovary measuring up to 3.1 cm, similar to prior CT and ultrasound. No follow-up imaging is recommended. US/US pelvic and transvaginal IMPRESSION: IUD appears in appropriate position.
== END 2024-01-18 15:44 | disposition home or self-care (01) ==
LOC: HO.US 15:43
PROVIDERS: PCP Internal Medicine; Visit Provider Advanced Practice Midwife
DX: Z30.431 Encounter for routine checking of intrauterine contraceptive device (principal); N83.209 Unspecified ovarian cyst, unspecified side
CPT/HCPCS: 76830; 76856

== ENCOUNTER 2024-02-01 11:38 | Outpatient (AMB) | payer OTHER, SELFPAY ==
--- NOTE | 2024-02-01 11:45 | MHC.OFFVIS ---
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 Allergies shrimp [SHRIMP] Allergy (Severe, Verified 02/01/24 11:45) Anaphylaxis latex [LATEX] Allergy (Unknown, Verified 02/01/24 11:45) RASH levofloxacin [From LEVAQUIN] Allergy (Unknown, Verified 02/01/24 11:45) AGITATION morphine [MORPHINE] Allergy (Unknown, Verified 02/01/24 11:45) HEADACHES Sulfa (Sulfonamide Antibiotics) [SULFA (SULFONAMIDE ANTIBIOTICS)] Allergy (Unknown, Verified 02/01/24 11:45) HIVES Penicillins Adverse Reaction (Unknown, Verified 02/01/24 11:45) Itching adhesives Adverse Reaction (Intermediate, Uncoded 12/18/23 09:55) rash Is last menstrual period known: Yes HPI HPI Comments History of Present Illness Details Patient is here today to discuss her test results from her pelvic ultrasound. She has a history of breakthrough bleeding with her IUD. All cultures were all negative. Pap was not negative 2019. She reports pelvic pain at times with her ovarian cysts comes and goes. [facility] Medical History Left arm pain Neck pain Vaginal discharge Rash Subconjunctival hemorrhage of left eye Upper respiratory tract infection Physical exam Sinus infection Myalgia Right wrist pain Right shoulder pain Screen for STD (sexually transmitted disease) Retained tampon COVID-19 Conjunctivitis Well woman exam Heart palpitations Shortness of breath Retrognathia Hemorrhoids with complication Breast pain Shortness of breath PVC (premature ventricular contraction) PAC (premature atrial contraction) Colon cancer DVT (deep venous thrombosis) Surgical History Hx of colonoscopy History of esophagogastroduodenoscopy (EGD) H/O knee surgery History of colon surgery Family History Mother High blood pressure COPD (chronic obstructive pulmonary disease) History of four vessel coronary artery bypass graft Mental health disorder Father High blood pressure Social History Housing: House Alcohol intake: current Alcohol intake frequency: holidays/special occasions only Alcohol type: wine Patient Tobacco Use Status: Former Tobacco user Quit Date: 13 years ago Tobacco use type: Smokeless Tobacco e-Cigarette/Vaping Use: Currently Using Second Hand Smoke Exposure: No service: No Current occupational status: employed 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 Current occupational exposures/hazards: No Cognitive needs: No Hearing needs: No Vision needs: No Female Reproductive History Menstrual Age of Menarche: 10 Review of Systems Const All systems reviewed & are unremarkable except as noted in HPI and below Endo Reports no additional complaints Physical Exam Vital Signs: Last Vital Signs BP 118/74 02/01/24 11:46 BMI result Body Mass Index 29.1 Const General: cooperative, healthy appearing and no acute distress Psych Appearance: well kempt Attitude: cooperative Thought process: Normal thought process present Results Reviewed Results Reviewed: [address] [address] Ultrasound Report Signed Patient: Katlyn Shaikh MR#: [id number] : 1975 Acct:[id number] Age/Sex: 48 / F ADM Date: 01/18/24 Loc: HO.US Attending Dr: Kalli Padilla CNM Ordering Physician: Kalli Padilla CNM Date of Service: 01/18/24 Procedure(s): US pelvic and transvaginal Accession Number(s): [id number] cc: Kalli Padilla CNM; Ailyn Fishman MD~ EXAMINATION: US PELVIS CLINICAL INFORMATION: Encounter for routine checking of intrauterine contraceptive device. COMPARISON: Pelvic ultrasound 06/11/2021. Pelvic CT 12/18/2023. TECHNIQUE: Ultrasound of the pelvis is performed using both transabdominal and transvaginal transducers along with Doppler. Transvaginal imaging is performed due to inadequate visualization transabdominally. FINDINGS: Uterus: The uterus measures 8.7 x 2.6 x 4.1 cm. The uterus is anteverted and anteflexed. There is an IUD which appears in appropriate position. Adnexa: The right ovary measures 3.3 x 1.7 x 2.2 cm, volume 6.5 mm. The left ovary measures 5.1 x 1.7 x 2.5 cm, volume 11.3 mL. Multiple simple appearing functional cysts in the left ovary measuring up to 3.1 cm, similar to prior CT and ultrasound. No follow-up imaging is recommended. US/US pelvic and transvaginal IMPRESSION: IUD appears in appropriate position. Dictated By: Joe Sim MD Signed By: <Electronically signed by Joe Sim MD in OV> 01/20/24 1533 DD/ 1627 TD/TT: German Tutor: GARRETT Assessment & Plan Assessment & Plan (1) Encounter to discuss test results: Code(s): Z71.2 - Person consulting for explanation of examination or test findings (2) IUD surveillance: Code(s): Z30.431 - Encounter for routine checking of intrauterine contraceptive device Plan Discussed: Pt. deferred exam today due to bleeding. Discussed findings benign ovarian cyst no indication to follow-up for this unless she has increased pelvic pain. IUD is in place. If any severe pain she would need to go the emergency room. She is interested in the uterine ablation. Advised she can make a consult to discuss it with Dr. Kelly whether she has a candidate. All of her questions and concerns were addressed to the best of my ability and shared decision making. She is agreeable to the plan of care. This note is constructed using voice recognition software. While every effort has been made to ensure accuracy, internet consultant errors may have been included. Coding Level of Care Code Est Pt Level 3 (62768) Diagnoses Encounter to discuss test results Z71.2 IUD surveillance Z30.431
[2024-02-01 11:46] VITALS: BP 118/74; BMI 29.1
== END 2024-02-01 12:50 | disposition home or self-care (01) ==
LOC: HO.HWS 11:38
PROVIDERS: PCP Internal Medicine; Visit Provider Advanced Practice Midwife
DX: Z71.2 Person consulting for explanation of examination or test findings (principal); Z30.431 Encounter for routine checking of intrauterine contraceptive device
CPT/HCPCS: 99213

== ENCOUNTER → 2024-02-01 11:38 | Outpatient (BNVA) | payer OTHER, SELFPAY | PROVIDERS: PCP Internal Medicine; Visit Provider Advanced Practice Midwife ==

== ENCOUNTER 2024-02-13 15:03 | Outpatient (AMB) | payer OTHER, SELFPAY ==
[2024-02-13 15:05] VITALS: BP 128/80; BMI 29.1
--- NOTE | 2024-02-13 15:05 | A.OFFVIS_ITS ---
Intake Vital Signs 02/13/24 15:05 Height 5 ft 9 in Weight 197 lb BMI 29.1 BP 128/80 Intake Visit Reasons: consult for ablation Allergies shrimp [SHRIMP] Allergy (Severe, Verified 02/01/24 11:45) Anaphylaxis latex [LATEX] Allergy (Unknown, Verified 02/01/24 11:45) RASH levofloxacin [From LEVAQUIN] Allergy (Unknown, Verified 02/01/24 11:45) AGITATION morphine [MORPHINE] Allergy (Unknown, Verified 02/01/24 11:45) HEADACHES Sulfa (Sulfonamide Antibiotics) [SULFA (SULFONAMIDE ANTIBIOTICS)] Allergy (Unknown, Verified 02/01/24 11:45) HIVES Penicillins Adverse Reaction (Unknown, Verified 02/01/24 11:45) Itching adhesives Adverse Reaction (Intermediate, Uncoded 12/18/23 09:55) rash HPI HPI Comments History of Present Illness Details Presenting to discuss endometrial ablation. The patient has been on Mirena IUD , her menstrual cycles are light none cramping. No other complaints PFSH Medical History Left arm pain Neck pain Vaginal discharge Rash Subconjunctival hemorrhage of left eye Upper respiratory tract infection Physical exam Sinus infection Myalgia Right wrist pain Right shoulder pain Screen for STD (sexually transmitted disease) Retained tampon COVID-19 Conjunctivitis Well woman exam Heart palpitations Shortness of breath Retrognathia Hemorrhoids with complication Breast pain Shortness of breath PVC (premature ventricular contraction) PAC (premature atrial contraction) Colon cancer DVT (deep venous thrombosis) Surgical History Hx of colonoscopy History of esophagogastroduodenoscopy (EGD) H/O knee surgery History of colon surgery Family History Mother High blood pressure COPD (chronic obstructive pulmonary disease) History of four vessel coronary artery bypass graft Mental health disorder Father High blood pressure Social History Housing: House Alcohol intake: current Alcohol intake frequency: holidays/special occasions only Alcohol type: wine Patient Tobacco Use Status: Former Tobacco user Quit Date: 13 years ago Tobacco use type: Smokeless Tobacco e-Cigarette/Vaping Use: Currently Using Second Hand Smoke Exposure: No service: No Current occupational status: employed 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 Current occupational exposures/hazards: No Cognitive needs: No Hearing needs: No Vision needs: No Female Reproductive History Menstrual Age of Menarche: 10 Review of Systems Const All systems reviewed & are unremarkable except as noted in HPI and below Reports as per HPI and Reports no additional complaints GI Reports no additional complaints Reports no additional complaints Physical Exam Vital Signs: Last Vital Signs BP 128/80 02/13/24 15:05 BMI result Body Mass Index 29.1 Assessment & Plan Assessment & Plan (1) Abnormal uterine bleeding (AUB): Code(s): N93.9 - Abnormal uterine and vaginal bleeding, unspecified Plan: Discussed with the patient the endometrial ablation. so a more detailed discussion about the procedure was conducted including mechanism of action, effectiveness and its potential failure rate in the coming 3-5 years, its risks (initial or future failure of AUB control, uterine perforation, infection, injury to bladder, bowel, ureter, and blood vessels, possible need for blood transfusion, inability to access the uterine cavity in order to sample the endo metrial cavity to rule out endometrial pathology including endometrial cancer and others), post ablation syndrome, benefits ( hypomenorrhea, amenorrhea, ...) . Since Mirena IUD is controlling AUB and with minimal concerns recommended to continue on it unless the patient develops side effects or abnormal uterine bleeding further. The patient verbalized understanding and agreed with the plan. Coding Level of Care Code Est Pt Level 3 (43454) Diagnoses Abnormal uterine bleeding (AUB) N93.9
== END 2024-02-13 15:18 | disposition home or self-care (01) ==
LOC: HO.HWS 15:03
PROVIDERS: PCP Internal Medicine; Visit Provider Obstetrics & Gynecology
DX: N93.9 Abnormal uterine and vaginal bleeding, unspecified (principal)
CPT/HCPCS: 99213

== ENCOUNTER → 2024-02-13 15:03 | Outpatient (BNVA) | payer OTHER, SELFPAY | PROVIDERS: PCP Internal Medicine; Visit Provider Obstetrics & Gynecology ==

== ENCOUNTER 2024-03-15 06:02 | Day surgery (SDC) | payer OTHER, SELFPAY ==
[2024-03-13 15:14] VITALS: BMI 27.3
[2024-03-13 16:07] VITALS: BMI 27.3
--- NOTE | 2024-03-14 08:41 | P.CONAN_ITS ---
Documented by User: Xenia Horner NP 03/14/24 08:45 HPI - Anesthesia Eval Consult details Narrative: 48yo F for Colonoscopy Xarelto for hx DVT PMFSH Active Problems Active Problems: All Active Problems Abnormal uterine bleeding (AUB) (Acute) Osteoarthritis of hands, bilateral (Acute) Right tennis elbow (Acute) Asthma (Acute) GERD (gastroesophageal reflux disease) (Acute) De Quervain's disease (radial styloid tenosynovitis) (Acute) Degenerative disc disease, cervical (Acute) Allergic rhinitis (Acute) RADHA (obstructive sleep apnea) (Acute) Witnessed episode of apnea (Acute) Mild major depression (Acute) Hemorrhoid (Acute) Paresthesia of both hands (Acute) Polyarthralgia (Acute) Pleuritic chest pain (Acute) COVID-19 long hauler manifesting chronic fatigue (Acute) Metrorrhagia (Acute) PAC (premature atrial contraction) (Acute) PVC (premature ventricular contraction) (Acute) Colon cancer (Acute) Breast pain (Acute) Retrognathia (Acute) Hemorrhoids with complication (Acute) Past Medical History Medical History (Updated 03/13/24 @ 16:07 by Nette Olivas, MIRA) GERD (gastroesophageal reflux disease) IUD (intrauterine device) in place History of blood transfusion Medullary sponge kidney Asthma History of seizure Seasonal allergies RADHA (obstructive sleep apnea) History of chemotherapy (~2012) Hx of radiation therapy (~2012) Recent bereavement Left arm pain Neck pain Retrognathia Vaginal discharge Rash Subconjunctival hemorrhage of left eye Upper respiratory tract infection Hemorrhoids with complication Physical exam Sinus infection Myalgia Right wrist pain Right shoulder pain Screen for STD (sexually transmitted disease) Retained tampon COVID-19 Conjunctivitis Well woman exam Breast pain Shortness of breath PVC (premature ventricular contraction) PAC (premature atrial contraction) Colon cancer (~2012) DVT (deep venous thrombosis) Heart palpitations Shortness of breath Family History Family History Mother High blood pressure COPD (chronic obstructive pulmonary disease) History of four vessel coronary artery bypass graft Mental health disorder Father High blood pressure Family history of problems with anesthesia: No Surgical History Surgical History (Updated 03/13/24 @ 16:06 by Nette Olivas, RN) History of kidney surgery Hx of colonoscopy History of esophagogastroduodenoscopy (EGD) H/O knee surgery History of colon surgery History of Problems with Anesthesia: No Social History Social History (Updated 03/13/24 @ 16:10 by Nette Olivas RN) Housing: House Are you a primary property caretaker to a significant other at home: No Do you presently have visiting nurse or other home services: No Alcohol intake: current Alcohol intake frequency: holidays/special occasions only Alcohol type: wine Patient Tobacco Use Status: Former Tobacco user Quit Date: 13 years ago Tobacco use type: Smokeless Tobacco e-Cigarette/Vaping Use: Currently Using Second Hand Smoke Exposure: No Use of substances other than those prescribed or required for medical reasons: No Have you been hit, kicked, punched, or otherwise hurt by someone within the past year? If so, by whom?: No Are you DNR?: No Advance Directives: No Advance Directives Information Provided: Yes Advance Directives on File: No Recently lost weight without trying: No Nutrition Risks: No Nutritional Risk Patient : No FDLMP: 03/09/2024 : No Poor oral hygiene: No service: No Current occupational status: employed 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 Current occupational exposures/hazards: No Cognitive needs: No Hearing needs: No Vision needs: No Meds Allergies Allergy/AdvReac Type Severity Reaction Status Date / Time shrimp [SHRIMP] Allergy Severe Anaphylaxis Verified 03/13/24 15:53 latex [LATEX] Allergy Intermediate RASH Verified 03/13/24 15:53 Penicillins Allergy Intermediate Itching Verified 03/13/24 15:53 Sulfa (Sulfonamide Allergy Intermediate HIVES Verified 03/13/24 15:53 Antibiotics) [SULFA (SULFONAMIDE ANTIBIOTICS)] levofloxacin [From LEVAQUIN] AdvReac Severe AGITATION Verified 03/13/24 15:53 morphine [MORPHINE] AdvReac Severe HEADACHES Verified 03/13/24 15:53 adhesives Allergy Intermediate rash Uncoded 03/13/24 15:53 Home Medications ?Medication ?Instructions ?Recorded ?Confirmed ?Last Taken ?Type levonorgestrel 21 mcg/24 hours (8 20 mcg intrauterine DIRECTED 05/21/21 03/13/24 Unknown History yrs) 52 mg intrauterine device contraception (Mirena) rivaroxaban 10 mg tablet (Xarelto) 10 mg PO DAILY 05/03/23 12/20/23 Unknown History fexofenadine 180 mg tablet 180 mg PO DAILY 08/23/23 03/13/24 Unknown History (Keeley Allergy) oxymetazoline 0.05 % nasal spray 2 spray intranasal Q12H PRN 03/13/24 03/13/24 Unknown History (Afrin (oxymetazoline)) Allergy Symptoms Exam Height,Weight and Vital Signs: Height 5 ft 9 in Weight 83.915 kg Pertinent Lab Results Pertinent Lab Results: Laboratory Tests 12/18/23 10:07 WBC 16.2 H Hgb 14.1 Hct 40.8 Plt Count 190 Sodium 136 Potassium 3.8 Chloride 101 Carbon Dioxide 27 BUN 14 Creatinine 0.86 Assessment and Plan Assessment Anesthesia Assessment: Chart Reviewed Final Anesthetic Review Family History of Problems with Anesthesia: No History of Problems with Anesthesia: No Documented by User: Silverio Shaikh MD 03/15/24 07:16 [facility] Past Medical History Medical History (Updated 03/13/24 @ 16:07 by Nette Olivas RN) GERD (gastroesophageal reflux disease) IUD (intrauterine device) in place History of blood transfusion Medullary sponge kidney Asthma History of seizure Seasonal allergies RADHA (obstructive sleep apnea) History of chemotherapy (~2012) Hx of radiation therapy (~2012) Recent bereavement Left arm pain Neck pain Retrognathia Vaginal discharge Rash Subconjunctival hemorrhage of left eye Upper respiratory tract infection Hemorrhoids with complication Physical exam Sinus infection Myalgia Right wrist pain Right shoulder pain Screen for STD (sexually transmitted disease) Retained tampon COVID-19 Conjunctivitis Well woman exam Breast pain Shortness of breath PVC (premature ventricular contraction) PAC (premature atrial contraction) Colon cancer (~2012) DVT (deep venous thrombosis) Heart palpitations Shortness of breath Family History Family History Mother High blood pressure COPD (chronic obstructive pulmonary disease) History of four vessel coronary artery bypass graft Mental health disorder Father High blood pressure Surgical History Surgical History (Updated 03/13/24 @ 16:06 by Nette Olivas RN) History of kidney surgery Hx of colonoscopy History of esophagogastroduodenoscopy (EGD) H/O knee surgery History of colon surgery Social History Social History (Updated 03/13/24 @ 16:10 by Nette Olivas RN) Housing: House Are you a primary property caretaker to a significant other at home: No Do you presently have visiting nurse or other home services: No Alcohol intake: current Alcohol intake frequency: holidays/special occasions only Alcohol type: wine Patient Tobacco Use Status: Former Tobacco user Quit Date: 13 years ago Tobacco use type: Smokeless Tobacco e-Cigarette/Vaping Use: Currently Using Second Hand Smoke Exposure: No Use of substances other than those prescribed or required for medical reasons: No Have you been hit, kicked, punched, or otherwise hurt by someone within the past year? If so, by whom?: No Are you DNR?: No Advance Directives: No Advance Directives Information Provided: Yes Advance Directives on File: No Recently lost weight without trying: No Nutrition Risks: No Nutritional Risk Patient : No FDLMP: 03/09/2024 : No Poor oral hygiene: No service: No Current occupational status: employed 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 Current occupational exposures/hazards: No Cognitive needs: No Hearing needs: No Vision needs: No Meds Allergies Allergy/AdvReac Type Severity Reaction Status Date / Time shrimp [SHRIMP] Allergy Severe Anaphylaxis Verified 03/13/24 15:53 latex [LATEX] Allergy Intermediate RASH Verified 03/13/24 15:53 Penicillins Allergy Intermediate Itching Verified 03/13/24 15:53 Sulfa (Sulfonamide Allergy Intermediate HIVES Verified 03/13/24 15:53 Antibiotics) [SULFA (SULFONAMIDE ANTIBIOTICS)] levofloxacin [From LEVAQUIN] AdvReac Severe AGITATION Verified 03/13/24 15:53 morphine [MORPHINE] AdvReac Severe HEADACHES Verified 03/13/24 15:53 adhesives Allergy Intermediate rash Uncoded 03/13/24 15:53 Home Medications ?Medication ?Instructions ?Recorded ?Confirmed ?Last Taken ?Type levonorgestrel 21 mcg/24 hours (8 20 mcg intrauterine DIRECTED 05/21/21 03/13/24 Unknown History yrs) 52 mg intrauterine device contraception (Mirena) rivaroxaban 10 mg tablet (Xarelto) 10 mg PO DAILY 05/03/23 12/20/23 Unknown History fexofenadine 180 mg tablet 180 mg PO DAILY 08/23/23 03/13/24 Unknown History (Keeley Allergy) oxymetazoline 0.05 % nasal spray 2 spray intranasal Q12H PRN 03/13/24 03/13/24 Unknown History (Afrin (oxymetazoline)) Allergy Symptoms Exam Airway Mallampati Class: II TM Dist: >3cm Neck ROM: Full Loose/Missing/Broken Teeth: No Heart: rr Lungs: cta Assessment and Plan Assessment Anesthesia Assessment: Anesthesia Plan Discussed Final Anesthetic Review NPO: Yes ASA Class: II Final Preanesthetic Review: No Changes in Pt Med Stat, Meds/Allgs Chart Reviewed, Consent Obtained/Reviewed and Anes Risks/Benef Reviewed Patient Risk: Intermediate Procedure Risk: Intermediate Anesthetic Plan Anesthetic Plan: MAC: Disposition: Standard PACU
--- NOTE | 2024-03-15 06:03 | MHC.SHP ---
Pre-Procedural Eval Section A - 24 Hr Update-Section A only Date of Service: 03/15/24 Section B - Complete if H&P > 30 days Chief Complaint: surveillance, hx of colon cancer Relevant Family History (Specify if Yes): No Relevant Social History: Tobacco Use Present Medications: see Short Stay Collaborative assessment Medical History: Significant History (GERD (gastroesophageal reflux disease) Medullary sponge kidney Asthma History of seizure Seasonal allergies RADHA (obstructive sleep apnea) History of chemotherapy (~2012) Hx of radiation therapy (~2012) Recent bereavement Left arm pain Neck pain Retrognathia Vaginal discharge Rash Subconjunctival hem) History of Previous Operations: Relevant previous surgery/procedure and date(s) (History of kidney surgery Hx of colonoscopy History of esophagogastroduodenoscopy (EGD) H/O knee surgery History of colon surgery) Allergies: Allergies Allergy/AdvReac Type Severity Reaction Status Date / Time shrimp [SHRIMP] Allergy Severe Anaphylaxis Verified 03/13/24 15:53 latex [LATEX] Allergy Intermediate RASH Verified 03/13/24 15:53 Penicillins Allergy Intermediate Itching Verified 03/13/24 15:53 Sulfa (Sulfonamide Allergy Intermediate HIVES Verified 03/13/24 15:53 Antibiotics) [SULFA (SULFONAMIDE ANTIBIOTICS)] levofloxacin [From LEVAQUIN] AdvReac Severe AGITATION Verified 03/13/24 15:53 morphine [MORPHINE] AdvReac Severe HEADACHES Verified 03/13/24 15:53 adhesives Allergy Intermediate rash Uncoded 03/13/24 15:53 Review of Systems Sugical H&P ROS: Negative: Constitution, Cardiovascular, Respiratory, Neurological, Psychiatric, Hem-Onc, Allergic/Immunologic, Gastrointestinal, Genitourinary, Musculoskeletal, Integumentary, Endocrine and Eyes/Ears/Nose/Throat Exam Surgical H&P Exam: Normal: HEENT, Normal: Heart, Normal: Lungs, Normal: Extremities, Normal: Abdomen, Normal: Skin and Normal: Neurological Plan Diagnosis/Plan: Unchanged I have reviewed the history and physical and performed a pertinent physical examination on my patient. No changes have occurred unless specified. Time Spent With Patient Time: Total time managing care of this patient today ____ minutes.
[2024-03-15 06:35] LABS: UPreg QC Valid YES; Urine Pregnancy NEGATIVE (NEGATIVE)
[2024-03-15] MEDS: Lactated Ringers 1,000 ML 100 ML IVCONT (06:35)
[2024-03-15 06:40] VITALS: BP 122/79; PULSE 72; RESP 18; TEMP 36.8; O2SAT 96
--- NOTE | 2024-03-15 07:35 | P.OPN-COLO_ITS ---
Colonoscopy Operative Note Operative Note Date of Service: 03/15/24 Narrative: Operative Information Procedure Description: Colonoscopy Indication: hx of colon cancer, and polyps, surveillance Anesthesia: MAC COLONOSCOPY Instrument: Olympus variable stiffness pediatric scope 190L Colonoscopy Monitoring: Vital signs and clinical assessment, continuous EKG monitoring, Pulse oximetry, Carbon Dioxide monitoring and blood pressure monitoring were done throughout the procedure. Colon withdrawal time was 7 minutes. Procedure: The patient was placed in the left lateral decubitis position and pre-procedure medications were administered. After a digital rectal examination of the ano-rectum, the video colonoscope was inserted into the rectum and advanced through the colon to the cecum/TI. The colonoscope was slowly withdrawn in a retrograde panoramic fashion and the colon mucosa was carefully examined including a retroflexed view of the rectum. Findings and interventions are described below. Procedure Difficulty: easy Findings: Terminal Ileum-normal mild melanosis coli Cecum:normal Ascending Colon: normal Transverse Colon -normal Descending Colon:normal colonic anastomosis: normal, few tics noted, some extrinsic compression of colon noted Rectum: Retroflexion with small internal hemorrhoids, grade I Anorectum - normal Intervention: none Colon preparation: Hancock Bowel Preparation Scale Right colon; 2 Transverse colon: 2 Left colon; 3 (0 = Unprepared colon segment with mucosa not seen due to solid stool that cannot be cleared. 1 = Portion of mucosa of the colon segment seen, but other areas of the colon segment not well seen due to staining, residual stool and/or opaque liquid. 2 = Minor amount of residual staining, small fragments of stool and/or opaque liquid, but mucosa of colon segment seen well. 3 = Entire mucosa of colon segment seen well with no residual staining, small fragments of stool or opaque liquid) Impression and Post Procedure Diagnosis: diverticulosis internal hemorrhoids Plan: High fiber diet leaflet Avoid straining at stool, epsom salts and sitz bath, anusol supps or cream Repeat Colonoscopy in 3 years due to hx of CRC and polyps or earlier if clinically indicated Above findings were reviewed with the patient and relevant handouts were provided if indicated.
[2024-03-15 07:58] VITALS: BP 95/54; PULSE 69; RESP 18; TEMP 36.4; O2SAT 97
[2024-03-15 08:11] VITALS: BP 113/67; PULSE 80; RESP 18; TEMP 36.6; O2SAT 97
== END 2024-03-15 08:26 | disposition home or self-care (01) ==
PROVIDERS: Nurse Practitioner; PCP Internal Medicine; Visit Provider Internal Medicine Gastroenterology
PROC: 0DJD8ZZ Inspection of Lower Intestinal Tract, Via Natural or Artificial Opening Endoscopic (ICD-10-PCS; CPT 45378; principal; 2024-03-15 07:30)
DX: Z12.11 Encounter for screening for malignant neoplasm of colon (principal); K57.30 Diverticulosis of large intestine without perforation or abscess without bleeding; K64.0 First degree hemorrhoids; K63.89 Other specified diseases of intestine; Z85.038 Personal history of other malignant neoplasm of large intestine; Z86.010 Personal history of colon polyps; Z98.0 Intestinal bypass and anastomosis status; K21.9 Gastro-esophageal reflux disease without esophagitis; J45.909 Unspecified asthma, uncomplicated; G47.33 Obstructive sleep apnea (adult) (pediatric); Z88.0 Allergy status to penicillin; Z88.2 Allergy status to sulfonamides; Z91.040 Latex allergy status
CPT/HCPCS: 45378; 81025; J2704

== ENCOUNTER → 2024-03-15 06:02 | Outpatient (BNV) | payer OTHER, SELFPAY | PROVIDERS: PCP Internal Medicine; Visit Provider Internal Medicine Gastroenterology | DX: Z12.11 Encounter for screening for malignant neoplasm of colon (principal); Z86.010 Personal history of colon polyps; Z85.038 Personal history of other malignant neoplasm of large intestine; K64.0 First degree hemorrhoids | CPT/HCPCS: 45378 ==

== ENCOUNTER 2024-03-19 07:37 | Outpatient (AMB) | payer OTHER, SELFPAY ==
[2024-03-19 07:48] VITALS: BP 121/81; RESP 18; TEMP 36.4; O2SAT 98; BMI 27.3
--- NOTE | 2024-03-19 07:48 | A.OFFVIS_ITS ---
Vital Signs 03/19/24 07:48 Height 5 ft 9 in Weight 185 lb BMI 27.3 BP 121/81 Blood Pressure Location Rt brachial Position Sitting Respiration 18 Temp 97.5 F Temp Source Temporal Artery Scan Pulse Oximetry (%) 98 Oxygen Delivery Method Room Air Intake Visit Reasons: OA Allergies shrimp [SHRIMP] Allergy (Severe, Verified 03/13/24 15:53) Anaphylaxis latex [LATEX] Allergy (Intermediate, Verified 03/13/24 15:53) RASH Penicillins Allergy (Intermediate, Verified 03/13/24 15:53) Itching Sulfa (Sulfonamide Antibiotics) [SULFA (SULFONAMIDE ANTIBIOTICS)] Allergy (Intermediate, Verified 03/13/24 15:53) HIVES levofloxacin [From LEVAQUIN] Adverse Reaction (Severe, Verified 03/13/24 15:53) AGITATION morphine [MORPHINE] Adverse Reaction (Severe, Verified 03/13/24 15:53) HEADACHES adhesives Allergy (Intermediate, Uncoded 03/13/24 15:53) rash Medication List - Last Reconciled 03/19/24 by Janes Aguilera MD albuterol sulfate 90 mcg/actuation 1 inh inhalation QID PRN azelastine 0.05% 1 drp ophthalmic (eye) BID bisacodyl (Dulcolax (bisacodyl)) 20 mg (4 x 5 mg) PO ONCE 1 day bisacodyl (Dulcolax (bisacodyl)) 20 mg (4 x 5 mg) PO ONCE 1 day bupropion HCl XL 300 mg PO QAM 90 days CPAP (CPAP Machine/Device) As directed fexofenadine (Keeley Allergy) 180 mg PO DAILY levonorgestrel (Mirena) 20 mcg intrauterine DIRECTED omeprazole 20 mg PO DAILY ondansetron 4 mg PO Q8H PRN oxymetazoline 0.05% (Afrin (oxymetazoline)) 2 sprays intranasal Q12H PRN polyethylene glycol 3350 (Miralax) 238 grams PO ONCE 1 day polyethylene glycol 3350 (Miralax) 238 grams PO ONCE 1 day rivaroxaban (Xarelto) 10 mg PO DAILY HPI Comments Details: 48-year-old female with osteoarthritis returns for follow-up. She is doing fairly well overall. Right tennis elbow pain is improved with occupational therapy. She continues to get intermittent pain that improves with doing some exercises. She gets intermittent pain on the outside of hips, more on the right. More prominent when she lies on side. She lost her father two weeks ago to static cancer and she has been grieving. Initial history: This is a 47-year-old female with a past medical history of colon cancer diagnosed 8 years ago s/p surgical resection followed by chemotherapy. She also has history of 2 DVTs, the 1st was when she was having left ACL repair, the 2nd was in the context of her cancer diagnosis and treatment. For the last year patient has been having multiple joint pain, he has pain in her neck, shoulders, going all the way down to her hands, especially right wrist She has generalized stiffness in the morning. Her neck cracks. She also feels that her strength is not the same. Patient sleeps about 6 hours at night but does not wake up refreshed. She goes to the bathroom multiple times for urination. Denies any unintentional weight loss. She has dry eyes and uses Restasis as needed with some relief. 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 [facility] Medical History GERD (gastroesophageal reflux disease) IUD (intrauterine device) in place History of blood transfusion Medullary sponge kidney Asthma History of seizure Seasonal allergies RADHA (obstructive sleep apnea) History of chemotherapy (~2012) Hx of radiation therapy (~2012) Recent bereavement Left arm pain Neck pain Retrognathia Vaginal discharge Rash Subconjunctival hemorrhage of left eye Upper respiratory tract infection Hemorrhoids with complication Physical exam Sinus infection Myalgia Right wrist pain Right shoulder pain Screen for STD (sexually transmitted disease) Retained tampon COVID-19 Conjunctivitis Well woman exam Breast pain Shortness of breath PVC (premature ventricular contraction) PAC (premature atrial contraction) Colon cancer (~2012) DVT (deep venous thrombosis) Heart palpitations Shortness of breath Surgical History History of kidney surgery Hx of colonoscopy History of esophagogastroduodenoscopy (EGD) H/O knee surgery History of colon surgery Family History Mother High blood pressure COPD (chronic obstructive pulmonary disease) History of four vessel coronary artery bypass graft Mental health disorder Father High blood pressure Cancer Social History Housing: House Are you a primary critical care transport nurse to a significant other at home: No Do you presently have visiting nurse or other home services: No Alcohol intake: current Alcohol intake frequency: holidays/special occasions only Alcohol type: wine Patient Tobacco Use Status: Former Tobacco user Quit Date: 13 years ago Tobacco use type: Smokeless Tobacco e-Cigarette/Vaping Use: Currently Using Second Hand Smoke Exposure: No service: No Current occupational status: employed 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 Current occupational exposures/hazards: No Cognitive needs: No Hearing needs: No Vision needs: No Female Reproductive History Menstrual Age of Menarche: 10 Review of Systems Musc Reports arthralgias Physical Exam Const General: cooperative, healthy appearing and comfortable Orientation/consciousness: patient oriented x3 Limitations: no limitations Resp Effort & Inspection: normal respiratory effort and able to speak in complete sentences Neuro General: patient oriented x3 Extrem Other: Today there is no Tenderness upon palpation of the common extensor origin at the right lateral epicondyle with negative resisted wrist extension test Osteoarthritic changes of both hands with early Josefina's and Heberden's nodes Bilateral trochanteric bursa area tenderness with negative Tony's test Normal nailfold capillaroscopy Normal range of motion of her neck Negative Spurling's test bilaterally Assessment & Plan Assessment & Plan (1) Osteoarthritis of hands, bilateral: Code(s): M19.041 - Primary osteoarthritis, right hand; M19.042 - Primary osteoarthritis, left hand Category: Medical Qualifiers: Osteoarthritis type: primary Qualified Code(s): M19.041 - Primary osteoarthritis, right hand; M19.042 - Primary osteoarthritis, left hand Plan: Improved with OT (2) Right tennis elbow: Code(s): M77.11 - Lateral epicondylitis, right elbow Category: Medical Plan: Improved with OT (3) Greater trochanteric pain syndrome of both lower extremities: Code(s): M25.551 - Pain in right hip; M25.552 - Pain in left hip Category: Medical Plan: I provided patient with gout of home exercises. Follow-up in 1 year Plan I spent 26 minutes reviewing patient's chart, evaluating patient, counseling patient and documenting in the chart Coding Level of Care Code Est Pt Level 4 (26329) Diagnoses Primary osteoarthritis of both hands M19.041; M19.042 Osteoarthritis type: primary Right tennis elbow M77.11 Greater trochanteric pain syndrome of both lower extremities M25.551; M25.552
== END 2024-03-19 08:02 | disposition home or self-care (01) ==
PROVIDERS: PCP Physician Assistant; Visit Provider Student in an Organized Health Care Education/Training Program
DX: M19.041 Primary osteoarthritis, right hand (principal); M19.042 Primary osteoarthritis, left hand; M77.11 Lateral epicondylitis, right elbow; M25.551 Pain in right hip; M25.552 Pain in left hip
CPT/HCPCS: 99214

== ENCOUNTER → 2024-03-19 07:37 | Outpatient (BNVA) | payer OTHER, SELFPAY | PROVIDERS: PCP Physician Assistant; Visit Provider Student in an Organized Health Care Education/Training Program ==

== ENCOUNTER 2024-06-06 10:27 | Outpatient (REF) | payer OTHER, SELFPAY ==
[2024-06-07 04:17] LABS: CT PCR NOT DETECTED (Not Detect.); NG PCR NOT DETECTED (Not Detect.)
[2024-06-07 09:47] LABS: Bacterial Vaginosis PCR NEGATIVE (Negative); Candida Group PCR DETECTED (Not Detect); Candida glab krusei PCR NOT DETECTED (Not Detect); Trichomonas vaginalis PCR NOT DETECTED (Not Detect)
== END 2024-06-06 10:28 | disposition home or self-care (01) ==
LOC: HO.LAB 10:27
PROVIDERS: PCP Physician Assistant; Visit Provider Advanced Practice Midwife
DX: Z20.2 Contact with and (suspected) exposure to infections with a predominantly sexual mode of transmission (principal); N83.209 Unspecified ovarian cyst, unspecified side
CPT/HCPCS: 0352U; 87491; 87591

== ENCOUNTER 2024-06-06 10:27 | Outpatient (AMB) | payer OTHER, SELFPAY ==
--- NOTE | 2024-06-06 10:30 | MHC.OFFVIS ---
Vital Signs 06/06/24 10:31 Height 5 ft 9 in Weight 198 lb BMI 29.2 BP 112/74 Intake Visit Reasons: Annual Syrup Maker: Syrup Maker Present (Zee) Allergies shrimp [SHRIMP] Allergy (Severe, Verified 06/06/24 10:31) Anaphylaxis latex [LATEX] Allergy (Intermediate, Verified 06/06/24 10:31) RASH Penicillins Allergy (Intermediate, Verified 06/06/24 10:31) Itching Sulfa (Sulfonamide Antibiotics) [SULFA (SULFONAMIDE ANTIBIOTICS)] Allergy (Intermediate, Verified 06/06/24 10:31) HIVES levofloxacin [From LEVAQUIN] Adverse Reaction (Severe, Verified 06/06/24 10:31) AGITATION morphine [MORPHINE] Adverse Reaction (Severe, Verified 06/06/24 10:31) HEADACHES adhesives Allergy (Intermediate, Uncoded 03/13/24 15:53) rash HPI Comments Details: She is a premenopausal woman presenting for annual examination. Doing well with concerns: Hot flashes. Current Mirena IUD user. History of ovarian cyst and occasional left lower quadrant discomfort. Currently is not sexually active. She denies vaginal itching and irritation. STI screening offered; she accepts. Denies family history of breast, ovarian cancer. FH colon cancer. Last pap smear 2019, negative. Mammogram: 2023. [facility] Medical History GERD (gastroesophageal reflux disease) IUD (intrauterine device) in place History of blood transfusion Medullary sponge kidney Asthma History of seizure Seasonal allergies RADHA (obstructive sleep apnea) History of chemotherapy (~2012) Hx of radiation therapy (~2012) Recent bereavement Left arm pain Neck pain Retrognathia Vaginal discharge Rash Subconjunctival hemorrhage of left eye Upper respiratory tract infection Hemorrhoids with complication Physical exam Sinus infection Myalgia Right wrist pain Right shoulder pain Screen for STD (sexually transmitted disease) Retained tampon COVID-19 Conjunctivitis Well woman exam Breast pain Shortness of breath PVC (premature ventricular contraction) PAC (premature atrial contraction) Colon cancer (~2012) DVT (deep venous thrombosis) Heart palpitations Shortness of breath Surgical History History of kidney surgery Hx of colonoscopy History of esophagogastroduodenoscopy (EGD) H/O knee surgery History of colon surgery Family History (Updated 06/06/24 @ 10:41 by BOGDAN Llanos) Mother High blood pressure COPD (chronic obstructive pulmonary disease) History of four vessel coronary artery bypass graft Mental health disorder Father High blood pressure Cancer Maternal Grandfather Colon cancer Paternal Aunt Colon cancer Social History Housing: House Are you a primary intensive care ambulance paramedic to a significant other at home: No Do you presently have visiting nurse or other home services: No Alcohol intake: current Alcohol intake frequency: holidays/special occasions only Alcohol type: wine Patient Tobacco Use Status: Former Tobacco user Tobacco use type: Smokeless Tobacco e-Cigarette/Vaping Use: Currently Using Second Hand Smoke Exposure: No service: No Current occupational status: employed 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 Current occupational exposures/hazards: No Cognitive needs: No Hearing needs: No Vision needs: No Female Reproductive History Menstrual Age of Menarche: 10 control method: progestin IUCD (Mirena 06/16/20) Total pregnancies: 0 Date of last pap smear: 05/20/20 (neg pap and hpv) Date of Mammogram: 12/23/23 (Birad 1) Review of Systems Const All systems reviewed & are unremarkable except as noted in HPI and below Reports as per HPI Eyes Reports no additional complaints ENT Reports no additional complaints Card Reports no additional complaints Resp Reports no additional complaints GI Reports as per HPI and Reports no additional complaints Reports as per HPI Musc Reports no additional complaints Skin/Breast Reports as per HPI Neuro Reports no additional complaints Psych Reports no additional complaints Endo Reports no additional complaints Cameron/Lymph Reports no additional complaints Aller/Immun Reports no additional complaints Physical Exam Vital Signs: Last Vital Signs BP 112/74 06/06/24 10:31 BMI result Body Mass Index 29.2 Const General: cooperative, healthy appearing, no acute distress, well developed and alert Orientation/consciousness: patient oriented x3 HEENT Head: Yes normal to inspection Eyes General: appearance normal, both eyes and all related structures Neck Neck: Yes normal visual inspection Thyroid: Thyroid normal Chest Chest palpation & inspection: normal inspection of the chest and other (no puckering, dimpling, peau de orange, retraction, discharge, masses) Breast/axilla inspection: normal inspection of the breasts Breast/axilla palpation: normal palpation of the breasts Resp Effort & Inspection: normal respiratory effort GI Inspection: Yes normal to inspection Palpation (GI): Soft to palpation Rectal Exam - Female: deferred General: Yes bladder normal to palpation External Female Exam: normal external appearance and normal appearance of the urethra Speculum Exam - Vagina: normal appearance of the vagina, normal palpation and normal vaginal discharge Speculum Exam - Cervix: normal appearance of the cervix, normal palpation and Other cervical findings present (IUD strings in place) Bimanual exam- vagina & uterus: normal bimanual exam, normal palpation, uterine size normal, bladder normal to palpation, normal palpation and non-tender Bimanual Exam- Adnexa, other: no masses Skin General skin exam: no rashes or lesions noted Rashes: no rashes Neuro General: patient oriented x3 Cognition (Neuro): normal cognition Extrem General: Yes normal to inspection Psych Attitude: cooperative Thought process: Normal thought process present Assessment & Plan Assessment & Plan (1) Encounter for well woman exam with routine gynecological exam: Code(s): Z01.419 - Encounter for gynecological examination (general) (routine) without abnormal findings Category: Medical (2) Cyst of ovary: Code(s): N83.209 - Unspecified ovarian cyst, unspecified side Qualifiers: Laterality: unspecified laterality Qualified Code(s): N83.209 - Unspecified ovarian cyst, unspecified side Plan Discussed: Current recommendations for pap smears per ASCCP guidelines. Breast awareness and periodic breast exams. Maintain a healthy lifestyle including a well balanced diet and routine exercise. Pelvic ultrasound, follow up in office for results. Mammogram yearly. Safe sex, condoms use. Patient verbalizes understanding and agrees to the plan of care. She was given opportunity to ask questions and all questions were answered to the best of my ability. RTO in one year for annual obstetrician/gynecologist examination. This note is constructed using voice recognition software. While every effort has been made to ensure accuracy, supervisor refining errors may have been included. Orders: Orders US pelvic and transvaginal Today N83.209 - Unspecified ovarian cyst, unspecified side Hepatitis C Antibody Reflex Today Z20.2 - Contact with and (suspected) exposure to infections with a predominantly sexual mode of transmission Hepatitis B Core Antibody Today Z20.2 - Contact with and (suspected) exposure to infections with a predominantly sexual mode of transmission Bacterial Vaginosis Panel Today Z20.2 - Contact with and (suspected) exposure to infections with a predominantly sexual mode of transmission CT NG by PCR Today Z20.2 - Contact with and (suspected) exposure to infections with a predominantly sexual mode of transmission HIV Ab/Ag Today Z20.2 - Contact with and (suspected) exposure to infections with a predominantly sexual mode of transmission Syphilis Screen Today Z20.2 - Contact with and (suspected) exposure to infections with a predominantly sexual mode of transmission Coding Level of Care Code Est Pt Prev Care 40-64y(50942) Diagnoses Encounter for well woman exam with routine gynecological exam Z01.419 Cyst of ovary, unspecified laterality N83.209 Laterality: unspecified laterality
[2024-06-06 10:31] VITALS: BP 112/74; BMI 29.2
== END 2024-06-06 11:29 | disposition home or self-care (01) ==
LOC: HO.HWS 10:27
PROVIDERS: PCP Physician Assistant; Visit Provider Advanced Practice Midwife
DX: Z01.419 Encounter for gynecological examination (general) (routine) without abnormal findings (principal); N83.209 Unspecified ovarian cyst, unspecified side
CPT/HCPCS: 99396

== ENCOUNTER 2024-06-06 11:00 | Outpatient (REF) | payer OTHER, SELFPAY | END 2024-06-06 11:01 | disposition home or self-care (01) | LOC: HO.LNP 11:00 | PROVIDERS: Visit Provider Advanced Practice Midwife | DX: Z13.89 Encounter for screening for other disorder (principal) ==

== ENCOUNTER 2024-06-12 09:27 | Outpatient (AMB) | payer OTHER, SELFPAY ==
[2024-06-12 10:04] VITALS: BMI 29.4
--- NOTE | 2024-06-12 10:04 | AM.OFFWIN_ITS ---
Intake Vital Signs 06/12/24 10:04 Height 5 ft 9 in Weight 199 lb BMI 29.4 Intake Visit Reasons: Rt Twisted knee ankle Intake Note: pt c/o RT knee and ankle pain. Fell on Tuesday Patient Tobacco Use Status: Former Tobacco user Allergies shrimp [SHRIMP] Allergy (Severe, Verified 06/06/24 10:31) Anaphylaxis latex [LATEX] Allergy (Intermediate, Verified 06/06/24 10:31) RASH Penicillins Allergy (Intermediate, Verified 06/06/24 10:31) Itching Sulfa (Sulfonamide Antibiotics) [SULFA (SULFONAMIDE ANTIBIOTICS)] Allergy (Intermediate, Verified 06/06/24 10:31) HIVES levofloxacin [From LEVAQUIN] Adverse Reaction (Severe, Verified 06/06/24 10:31) AGITATION morphine [MORPHINE] Adverse Reaction (Severe, Verified 06/06/24 10:31) HEADACHES adhesives Allergy (Intermediate, Uncoded 03/13/24 15:53) rash Do you need a note to return to daycare/school/sports/work: No HPI HPI Comments History of Present Illness Details 49 y/o female patient who presents to [facility] walk in clinic with c/o left knee and left Ankle pain since last week. [facility] History (Updated 06/06/24 @ 11:03 by Kalli Padilla CNM) Ovarian cyst GERD (gastroesophageal reflux disease) IUD (intrauterine device) in place History of blood transfusion Medullary sponge kidney Asthma History of seizure Seasonal allergies RADHA (obstructive sleep apnea) History of chemotherapy (~2012) Hx of radiation therapy (~2012) Recent bereavement Left arm pain Neck pain Retrognathia Vaginal discharge Rash Subconjunctival hemorrhage of left eye Upper respiratory tract infection Hemorrhoids with complication Physical exam Sinus infection Myalgia Right wrist pain Right shoulder pain Screen for STD (sexually transmitted disease) Retained tampon COVID-19 Conjunctivitis Well woman exam Breast pain Shortness of breath PVC (premature ventricular contraction) PAC (premature atrial contraction) Colon cancer (~2012) DVT (deep venous thrombosis) Heart palpitations Shortness of breath Surgical History History of kidney surgery Hx of colonoscopy History of esophagogastroduodenoscopy (EGD) H/O knee surgery History of colon surgery Family History (Updated 06/06/24 @ 10:41 by BOGDAN Llanos) Mother High blood pressure COPD (chronic obstructive pulmonary disease) History of four vessel coronary artery bypass graft Mental health disorder Father High blood pressure Cancer Maternal Grandfather Colon cancer Paternal Aunt Colon cancer Social History Housing: House Are you a primary vision care associate to a significant other at home: No Do you presently have visiting nurse or other home services: No Alcohol intake: current Alcohol intake frequency: holidays/special occasions only Alcohol type: wine Patient Tobacco Use Status: Former Tobacco user Tobacco use type: Smokeless Tobacco e-Cigarette/Vaping Use: Currently Using Second Hand Smoke Exposure: No service: No Current occupational status: employed 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 Current occupational exposures/hazards: No Cognitive needs: No Hearing needs: No Vision needs: No Female Reproductive History Menstrual Age of Menarche: 10 Review of Systems Const All systems reviewed & are unremarkable except as noted in HPI and below Physical Exam Vital Signs: BMI result Body Mass Index 29.4 Const General: comfortable and no acute distress Nutritional Appearance: obese Orientation/consciousness: patient oriented x3 Skin General skin exam: no rashes or lesions noted Neuro General: patient oriented x3, gait normal and moves all extremities Extrem Right lower extremity: normal to inspection and full ROM Left lower extremity: knee Details: abnormal to inspection, tenderness Location: of the patella and normal ROM; no swelling and ankle Details: tenderness Location: of the lateral malleolus, no edema and normal ROM; no swelling Psych Speech and movement: Normal speech and movement present Assessment & Plan Assessment & Plan (1) Left ankle strain: Code(s): S96.912A - Strain of unspecified muscle and tendon at ankle and foot level, left foot, initial encounter Qualifiers: Encounter type: initial encounter Qualified Code(s): S96.912A - Strain of unspecified muscle and tendon at ankle and foot level, left foot, initial encounter Plan: ICeHot Applied Cali for compression Elevate and rest Joint NSAIDs for pain relief (2) Strain of left knee: Code(s): S86.912A - Strain of unspecified muscle(s) and tendon(s) at lower leg level, left leg, initial encounter Qualifiers: Encounter type: initial encounter Qualified Code(s): S86.912A - Strain of unspecified muscle(s) and tendon(s) at lower leg level, left leg, initial encounter Plan: IceHot Applied Knee Brace NSAIDs for pain relief Rest joint. Coding Level of Care Code Est Pt Level 3 (51525) Diagnoses Strain of left ankle, initial encounter S96.912A Encounter type: initial encounter Strain of left knee, initial encounter S86.912A Encounter type: initial encounter Time Spent (min) 15
== END 2024-06-12 11:07 | disposition home or self-care (01) ==
PROVIDERS: PCP Physician Assistant; Visit Provider Nurse Practitioner Family
DX: S96.912A Strain of unspecified muscle and tendon at ankle and foot level, left foot, initial encounter (principal); S86.912A Strain of unspecified muscle(s) and tendon(s) at lower leg level, left leg, initial encounter
CPT/HCPCS: 99213

== ENCOUNTER 2024-06-19 08:23 | Outpatient (AMB) | payer OTHER, SELFPAY ==
[2024-06-19 08:26] VITALS: BP 124/78; PULSE 68; O2SAT 97; BMI 29.4
--- NOTE | 2024-06-19 08:26 | A.OFFPC_ITS ---
Vital Signs 06/19/24 08:26 Height 5 ft 9 in Weight 199 lb 0.2 oz BMI 29.4 BP 124/78 Blood Pressure Location Lt brachial Position Sitting Pulse 68 Pulse Source Pulse Oximeter Pulse Oximetry (%) 97 Oxygen Delivery Method Room Air Intake Visit Reasons: blocked ear. sinus infection? Morning Caregiver Required: No Allergies shrimp [SHRIMP] Allergy (Severe, Verified 06/19/24 08:26) Anaphylaxis latex [LATEX] Allergy (Intermediate, Verified 06/19/24 08:26) RASH Penicillins Allergy (Intermediate, Verified 06/19/24 08:26) Itching Sulfa (Sulfonamide Antibiotics) [SULFA (SULFONAMIDE ANTIBIOTICS)] Allergy (Intermediate, Verified 06/19/24 08:26) HIVES levofloxacin [From LEVAQUIN] Adverse Reaction (Severe, Verified 06/19/24 08:26) AGITATION morphine [MORPHINE] Adverse Reaction (Severe, Verified 06/19/24 08:26) HEADACHES adhesives Allergy (Intermediate, Uncoded 06/19/24 08:26) rash Medication List - Last Reconciled 06/19/24 by Lala Gray PA-C albuterol sulfate 90 mcg/actuation 1 inh inhalation QID PRN azelastine 0.05% 1 drp ophthalmic (eye) BID PRN bupropion HCl XL 300 mg PO QAM 90 days CPAP (CPAP Machine/Device) As directed fexofenadine (Keeley Allergy) 180 mg PO DAILY levonorgestrel (Mirena) 20 mcg intrauterine DIRECTED omeprazole 20 mg PO DAILY oxymetazoline 0.05% (Afrin (oxymetazoline)) 2 sprays intranasal Q12H PRN rivaroxaban (Xarelto) 10 mg PO DAILY PRN Tobacco use date assessed: 06/19/24 Dental Screening Dental Screen Date: 06/19/24 HPI blocked ear. sinus infection? HPI Details 49 year old female with past history of DVT on anticoagulation, asthma, depression, obstructive sleep apnea, and GERD last seen by Dr. Mcmillan coming in for acute problem. In review of the notes she was seen in walk in clinic 06/2024 for left ankle pain diagnosed with strain and treated conservatively. Patient states for the last several months she has been having congestion related to her allergies. She does mentioned over the last few weeks her symptoms have been worsening and she now has sinus pressure and pain along with congestion. She did recently switch from Keeley to Zyrtec and has seen mild improvement in her symptoms. She is also complaining of right ear pain which began on Tuesday. Patient states she had a small cut in her ear she believes it may have become infected. Denies fevers, shortness of breath, difficulty or painful swallowing. [facility] Medical History (Updated 06/19/24 @ 09:08 by Lala Gray PA-C) Sinus infection Ovarian cyst GERD (gastroesophageal reflux disease) IUD (intrauterine device) in place History of blood transfusion Medullary sponge kidney Asthma History of seizure Seasonal allergies RADHA (obstructive sleep apnea) History of chemotherapy (~2012) Hx of radiation therapy (~2012) Recent bereavement Left arm pain Neck pain Retrognathia Vaginal discharge Rash Subconjunctival hemorrhage of left eye Upper respiratory tract infection Hemorrhoids with complication Physical exam Myalgia Right wrist pain Right shoulder pain Screen for STD (sexually transmitted disease) Retained tampon COVID-19 Conjunctivitis Well woman exam Breast pain Shortness of breath PVC (premature ventricular contraction) PAC (premature atrial contraction) Colon cancer (~2012) DVT (deep venous thrombosis) Heart palpitations Shortness of breath Surgical History History of kidney surgery Hx of colonoscopy History of esophagogastroduodenoscopy (EGD) H/O knee surgery History of colon surgery Family History (Updated 06/06/24 @ 10:41 by BOGDAN Llanos) Mother High blood pressure COPD (chronic obstructive pulmonary disease) History of four vessel coronary artery bypass graft Mental health disorder Father High blood pressure Cancer Maternal Grandfather Colon cancer Paternal Aunt Colon cancer Social History Housing: House Are you a primary morning caregiver to a significant other at home: No Do you presently have visiting nurse or other home services: No Alcohol intake: current Alcohol intake frequency: holidays/special occasions only Alcohol type: wine Patient Tobacco Use Status: Former Tobacco user Tobacco use type: Smokeless Tobacco e-Cigarette/Vaping Use: Currently Using Second Hand Smoke Exposure: No service: No Current occupational status: employed 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 Current occupational exposures/hazards: No Cognitive needs: No Hearing needs: No Vision needs: No Female Reproductive History Menstrual Age of Menarche: 10 Questionnaire Thrive Questionnaire Date Thrive assessed: 06/19/24 I am a: Patient What is your living situation today?: I have a steady place to live Within the past 12 months, did the food you bought not last and you didn't have the money to get more?: Never true Within the past 12 months, did you worry whether your food would run out before you got money to buy more?: Never true Do you have trouble paying for medicines?: No Do you have trouble getting transportation to medical appointments?: No Do you have trouble paying your heating and electricity bill?: No Do you have trouble taking care of your child, family member or friend?: No Do you have trouble with day-to-day activities such as bathing, preparing meals, shopping, managing finances, etc.?: No Are you currently unemployed and looking for a job?: No Are you interested in more education?: No Please select the resources that you would like help with: None Currently or been in a relationship where the following occur: No concerns reported THRIVE Score: 0 AUDIT C Alcohol Use Questionnaire (AUDIT-C) 1. How often do you have a drink containing alcohol?: 2-3 times a week 2. How many drinks containing alcohol do you have on a typical day when you are drinking?: 1 or 2 3. How often do you have six or more drinks on one occasion?: Never Total Score: 3 Score Reviewed/Action Taken: No CHAVA-7 AMB Questionnaire CHAVA-7 Date CHAVA - 7 assessed: 12/16/22 Source: Developed by Drs. Phuc Carter, Carlita Mercado, Joseph Christianson and colleagues, with an educational oumar from [employer]. Review of Systems Const Denies body aches, Denies chills, Denies fever(s), Reports headache(s) and Denies poor appetite Eyes Reports no additional complaints ENT Denies dysphagia, Denies dizziness, Reports otalgia (Right ear), Reports facial pain, Reports headache(s), Denies odynophagia, Reports sinus pressure, Denies sore throat and Denies throat swelling Card Denies chest pain, Denies lightheadedness and Denies dyspnea Resp Reports cough (Occasional dry ) and Denies dyspnea GI Denies abdominal pain, Denies constipation, Denies dysphagia, Denies nausea, Denies odynophagia and Denies vomiting Reports no additional complaints Musc Reports no additional complaints and Denies abnormal gait Skin/Breast Reports system reviewed and no additional complaints, except as documented Neuro Denies abnormal gait, Denies dizziness and Reports headache(s) Psych Reports no additional complaints Aller/Immun Denies throat swelling Physical exam (Primary Care) Vital Signs: Last Vital Signs Pulse 68 06/19/24 08:26 BP 124/78 06/19/24 08:26 Pulse Ox 97 06/19/24 08:26 Oxygen Delivery Method Room Air 06/19/24 08:26 BMI result Body Mass Index 29.4 Tobacco/Smoking Status: Tobacco use Status Tobacco use date assessed 06/19/24 06/19/24 08:27 Patient Tobacco Use Status Former Tobacco user 06/19/24 08:27 Tobacco use type Smokeless Tobacco 06/19/24 08:27 e-Cigarette/Vaping Use Currently Using 06/19/24 08:27 Thrive Assessment: Date of Thrive Assessment Date Thrive assessed 12/16/22 06/19/24 08:27 Currently or been in a relationship where the following occur: No concerns reported Const General: cooperative, healthy appearing, comfortable and no acute distress Orientation/consciousness: patient oriented x3 HENMT Other: tenderness to palpation over right pinna and tragus. Right ear canal is swollen and erythematous without any open lesions. Left ear is normal. Head: Yes normocephalic Ears: hearing grossly normal bilaterally, TM's normal bilaterally and mastoids normal bilaterally General nose exam: Normal external nose present Face and sinus: Yes sinus tenderness Mouth: Normal oral and palatal mucosa present Throat: Yes posterior oropharynx normal and Yes tonsils normal Eyes General: appearance normal, both eyes and all related structures Conjunctivae: conjunctivae normal Neck Neck: Yes full ROM and Yes no lymphadenopathy Resp Effort & Inspection: normal respiratory effort Auscultation: clear to auscultation bilaterally, no crackles, no rales, no rhonchi and no wheezes Cardio Rate: regular rate Rhythm: regular rhythm Skin General skin exam: no rashes or lesions noted Neuro General: patient oriented x3 Gait exam (Neuro): Normal gait present Extrem General: Yes normal to inspection, Yes full ROM and No edema Psych Affect: normal affect Attitude: cooperative Insight: Good insight present (Psych) Judgement: Good judgement present (Psych) Assessment and Plan Assessment & Plan (1) Sinus infection: Code(s): J32.9 - Chronic sinusitis, unspecified Qualifiers: Sinusitis location: frontal Chronicity: acute Recurrence: non- recurrent Qualified Code(s): J01.10 - Acute frontal sinusitis, unspecified Plan: Patient's symptoms have been persistent for several weeks and she is now having sinus tenderness and worsening congestion. We will trial azithromycin for symptoms. Patient was also given fluconazole as she is prone to yeast infections after antibiotic use. If symptoms do not improve please reach out to be re- evaluated. (2) Otitis externa: Code(s): H60.90 - Unspecified otitis externa, unspecified ear Plan: Presentation is most consistent with otitis externa. Right TM was nonerythematous without bulging. We will treat with topical antibiotic/steroid. If symptoms do not improve in 5 days please reach out to the office for re-ev aluation. Plan This note was constructed using voice recognition software. While every effort has been made to ensure accuracy and abrasive band winder, still areas may have been included sometimes these areas may affect the content or meeting of the given symptoms. Total time spent caring for the patient today was 20 minutes. This includes time spent before the visit reviewing the chart, time spent during the visit, and time spent after the visit and documentation. Coding Level of Care Code Est Pt Level 4 (11104) Diagnoses Acute non-recurrent frontal sinusitis J01.10 Sinusitis location: frontal Chronicity: acute Recurrence: non-recurrent Otitis externa H60.90
== END 2024-06-19 09:12 | disposition home or self-care (01) ==
PROVIDERS: PCP Physician Assistant
DX: J01.10 Acute frontal sinusitis, unspecified (principal); H60.91 Unspecified otitis externa, right ear
CPT/HCPCS: 99213

== ENCOUNTER 2024-06-19 08:57 | Outpatient (REF) | payer OTHER, SELFPAY ==
[2024-06-20 08:16] LABS: Syphilis Screen Nonreactive (Nonreactive)
[2024-06-20 08:24] LABS: HBc Num1 0.08 S/CO (0.00-0.79); HIV AB/AG Nonreactive (Nonreactive); HIV Num 1 0.04 S/CO (0.00-0.99); Hepatitis B Core Antibody Nonreactive (Nonreactive); ~Hepatitis C Antibody Nonreactive (Nonreactive)
== END 2024-06-19 08:58 | disposition home or self-care (01) ==
LOC: HO.LAB 08:57
PROVIDERS: PCP Physician Assistant; Visit Provider Advanced Practice Midwife
DX: Z20.2 Contact with and (suspected) exposure to infections with a predominantly sexual mode of transmission (principal)
CPT/HCPCS: 36415; 86704; 86780; 86803; 87389

== ENCOUNTER 2024-06-20 10:55 | Outpatient (REF) | payer OTHER, SELFPAY ==
--- NOTE | ~2024-06-20 | US_ITS ---
EXAMINATION: US PELVIS CLINICAL INFORMATION: Follow-up left ovarian cyst COMPARISON: None available. TECHNIQUE: Ultrasound of the pelvis is performed using both transabdominal and transvaginal transducers along with Doppler. Transvaginal imaging is performed due to inadequate visualization transabdominally. FINDINGS: Uterus: The uterus is anteverted and measures 10.2 x 2.8 x 4.6 cm. The double wall endometrial thickness is 3 mm. The uterus is smooth in contour and has normal myometrial echogenicity. No visible fibroid. Adnexa: Both ovaries are visualized. There is normal color flow to the adnexa. There is no ovarian torsion. There is no pelvic ascites or fluid collection. Right ovary measures 2.1 x 2.1 x 1.8 cm for a volume of 4.2 mL. Left ovary measures 3.6 x 2.4 x 2.0 cm for a volume of 9.1 mL which includes a 2.8 x 1.5 x 1.6 cm benign simple cyst. Previously, multiple cysts were present in the left ovary measuring up to 3.1 cm in size. US/US pelvic and transvaginal IMPRESSION: Benign simple left ovarian cyst. No further follow-up should be necessary. Electronically signed by: Mando Poe MD 07/10/2024 01:13 PM EDT
== END 2024-06-20 10:56 | disposition home or self-care (01) ==
LOC: HO.US 10:55
PROVIDERS: PCP Physician Assistant; Visit Provider Advanced Practice Midwife
DX: N83.209 Unspecified ovarian cyst, unspecified side (principal)
CPT/HCPCS: 76830; 76856

== ENCOUNTER 2024-06-26 11:43 | Outpatient (AMB) | payer OTHER, SELFPAY ==
[2024-06-26 11:44] VITALS: BP 118/80; PULSE 75; O2SAT 98; BMI 29.2
--- NOTE | 2024-06-26 11:44 | MHC.PC.OV ---
Vital Signs 06/26/24 11:44 Height 5 ft 9 in Weight 198 lb BMI 29.2 BP 118/80 Blood Pressure Location Lt brachial Position Sitting Pulse 75 Pulse Source Pulse Oximeter Pulse Oximetry (%) 98 Oxygen Delivery Method Room Air Intake Visit Reasons: Earache Nursing Home Assistant Administrator Required: No Allergies shrimp [SHRIMP] Allergy (Severe, Verified 06/26/24 11:44) Anaphylaxis latex [LATEX] Allergy (Intermediate, Verified 06/26/24 11:44) RASH Penicillins Allergy (Intermediate, Verified 06/26/24 11:44) Itching Sulfa (Sulfonamide Antibiotics) [SULFA (SULFONAMIDE ANTIBIOTICS)] Allergy (Intermediate, Verified 06/26/24 11:44) HIVES levofloxacin [From LEVAQUIN] Adverse Reaction (Severe, Verified 06/26/24 11:44) AGITATION morphine [MORPHINE] Adverse Reaction (Severe, Verified 06/26/24 11:44) HEADACHES adhesives Allergy (Intermediate, Uncoded 06/26/24 11:44) rash Medication List - Last Reconciled 06/26/24 by Lala Gray PA-C albuterol sulfate 90 mcg/actuation 1 inh inhalation QID PRN azelastine 0.05% 1 drp ophthalmic (eye) BID PRN bupropion HCl XL 300 mg PO QAM 90 days CPAP (CPAP Machine/Device) As directed fexofenadine (Keeley Allergy) 180 mg PO DAILY fluconazole 150 mg PO DAILY levonorgestrel (Mirena) 20 mcg intrauterine DIRECTED [id number] 3.5-10,000-1 mg/mL-unit/mL-% 4 drps otic (ear) left Q8H 7 days omeprazole 20 mg PO DAILY oxymetazoline 0.05% (Afrin (oxymetazoline)) 2 sprays intranasal Q12H PRN rivaroxaban (Xarelto) 10 mg PO DAILY PRN triamcinolone acetonide 1 spray intranasal DAILY Tobacco use date assessed: 06/19/24 Dental Screening Dental Screen Date: 06/19/24 HPI Earache HPI Details 49 year old female with past history of DVT on anticoagulation, asthma, depression, obstructive sleep apnea, and GERD coming in for follow up on acute problem. Patient was seen in the office 1 week ago was found to have otitis externa and acute sinusitis and given ear drops and azithromycin. Her sinus concerns have improved however her ear pain has been worsening and she now mentions her ear has been bleeding and more swollen. The pain has been keeping her up at night and is not responsive to Tylenol or ibuprofen. She mentions that her ear feels muffled. She is being seen by media theorist and author of tomorrow for allergy shots. [facility] Medical History (Updated 06/26/24 @ 12:38 by Lala Gray PA-C) Sinus infection Ovarian cyst GERD (gastroesophageal reflux disease) IUD (intrauterine device) in place History of blood transfusion Medullary sponge kidney Asthma History of seizure Seasonal allergies RADHA (obstructive sleep apnea) History of chemotherapy (~2012) Hx of radiation therapy (~2012) Recent bereavement Left arm pain Neck pain Retrognathia Vaginal discharge Rash Subconjunctival hemorrhage of left eye Upper respiratory tract infection Hemorrhoids with complication Physical exam Myalgia Right wrist pain Right shoulder pain Screen for STD (sexually transmitted disease) Retained tampon COVID-19 Conjunctivitis Well woman exam Breast pain Shortness of breath PVC (premature ventricular contraction) PAC (premature atrial contraction) Colon cancer (~2012) DVT (deep venous thrombosis) Heart palpitations Shortness of breath Surgical History History of kidney surgery Hx of colonoscopy History of esophagogastroduodenoscopy (EGD) H/O knee surgery History of colon surgery Family History (Updated 06/06/24 @ 10:41 by BOGDAN Llanos) Mother High blood pressure COPD (chronic obstructive pulmonary disease) History of four vessel coronary artery bypass graft Mental health disorder Father High blood pressure Cancer Maternal Grandfather Colon cancer Paternal Aunt Colon cancer Social History Housing: House Are you a primary care attendant to a significant other at home: No Do you presently have visiting nurse or other home services: No Alcohol intake: current Alcohol intake frequency: holidays/special occasions only Alcohol type: wine Patient Tobacco Use Status: Former Tobacco user Tobacco use type: Smokeless Tobacco e-Cigarette/Vaping Use: Currently Using Second Hand Smoke Exposure: No service: No Current occupational status: employed 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 How often do you have a drink containing alcohol?: 2-3 times a week 2. How many drinks containing alcohol do you have on a typical day when you are drinking?: 1 or 2 3. How often do you have six or more drinks on one occasion?: Never Total Score: 3 Score Reviewed/Action Taken: No CHAVA-7 AMB Questionnaire CHAVA-7 Date CHAVA - 7 assessed: 12/16/22 Source: Developed by Drs. Phuc Carter, Carlita Mercado, Joseph Christianson and colleagues, with an educational oumar from [employer]. Review of Systems Const Denies body aches, Denies chills, Denies fever(s), Denies headache(s) and Denies poor appetite Eyes Reports no additional complaints ENT Reports as per HPI and Denies headache(s) Card Denies chest pain and Denies dyspnea Resp Denies cough and Denies dyspnea GI Denies abdominal pain Reports no additional complaints Musc Reports no additional complaints and Denies abnormal gait Skin/Breast Reports system reviewed and no additional complaints, except as documented Neuro Denies abnormal gait and Denies headache(s) Psych Reports no additional complaints Physical exam (Primary Care) Vital Signs: Oxygen Delivery Method Room Air 06/26/24 11:44 Tobacco/Smoking Status: Tobacco use Status Tobacco use date assessed 06/19/24 06/26/24 11:45 Patient Tobacco Use Status Former Tobacco user 06/26/24 11:45 Tobacco use type Smokeless Tobacco 06/26/24 11:45 e-Cigarette/Vaping Use Currently Using 06/26/24 11:45 Thrive Assessment: Date of Thrive Assessment Date Thrive assessed 06/19/24 06/26/24 11:45 Const General: cooperative, healthy appearing, comfortable and no acute distress Orientation/consciousness: patient oriented x3 HENMT Other: right ear is tender to palpation of the pinna, canal is erythematous and purulent drainage is appreciated on exam. Head: Yes normocephalic Ears: hearing grossly normal bilaterally and external ears normal General nose exam: Normal external nose present Face and sinus: Yes sinuses nontender Throat: Yes posterior oropharynx normal Eyes General: appearance normal, both eyes and all related structures Conjunctivae: conjunctivae normal Neck Neck: Yes full ROM and Yes no lymphadenopathy Resp Effort & Inspection: normal respiratory effort Auscultation: clear to auscultation bilaterally, no crackles, no rales, no rhonchi and no wheezes Cardio Rate: regular rate Rhythm: regular rhythm Skin General skin exam: no rashes or lesions noted Neuro General: patient oriented x3 Gait exam (Neuro): Normal gait present Extrem General: Yes normal to inspection, Yes full ROM and No edema Psych Affect: normal affect Attitude: cooperative Insight: Good insight present (Psych) Judgement: Good judgement present (Psych) Assessment and Plan Assessment & Plan (1) Otitis media: Code(s): H66.90 - Otitis media, unspecified, unspecified ear Plan: Unclear if drainage is from otitis media or externa however patient did fail initial treatment with antibiotic/steroid ear drops. Still having significant pain on exam and now with drainage. Will trial different topical antibiotic/steroid and oral antibiotic and have patient follow up with ENT. Patient was able to get appointment today at 1:45 with ENT and will defer to their judgement for treatment. Otherwise take medications as prescribed and follow up if symptoms do not improve. Plan This note was constructed using voice recognition software. While every effort has been made to ensure accuracy and fire protection fabricator, still areas may have been included sometimes these areas may affect the content or meeting of the given symptoms. Total time spent caring for the patient today was 20 minutes. This includes time spent before the visit reviewing the chart, time spent during the visit, and time spent after the visit and documentation. Medications: New hydrocortisone-acetic acid 1-2 % 4 drps otic (ear) right TID 7 days 10 mL 0RF doxycycline hyclate 100 mg PO BID 7 days 14 caps 0RF Discontinued [id number]-vhietoxcm-AL 3.5-10,000-1 mg/mL-unit/mL-% Discontinued Reason: Patient no longer taking 4 drps otic (ear) left Q8H 7 days 10 mL 0RF Coding Level of Care Code Est Pt Level 4 (01734) Diagnoses Otitis media H66.90
== END 2024-06-26 12:16 | disposition home or self-care (01) ==
PROVIDERS: PCP Physician Assistant
DX: H66.90 Otitis media, unspecified, unspecified ear (principal)
CPT/HCPCS: 99214

== ENCOUNTER 2024-07-17 11:21 | Outpatient (AMB) | payer OTHER, SELFPAY ==
[2024-07-17 12:00] VITALS: BP 122/84; BMI 29.2
--- NOTE | 2024-07-17 12:00 | A.OFFVIS_ITS ---
Vital Signs 07/17/24 12:00 Height 5 ft 9 in Weight 198 lb BMI 29.2 BP 122/84 Blood Pressure Location Lt brachial Position Sitting Intake Visit Reasons: Ultra sound follow up Commercial Construction Superintendent: Commercial Construction Superintendent Present Allergies shrimp [SHRIMP] Allergy (Severe, Verified 07/17/24 12:01) Anaphylaxis latex [LATEX] Allergy (Intermediate, Verified 07/17/24 12:01) RASH Penicillins Allergy (Intermediate, Verified 07/17/24 12:01) Itching Sulfa (Sulfonamide Antibiotics) [SULFA (SULFONAMIDE ANTIBIOTICS)] Allergy (Intermediate, Verified 07/17/24 12:01) HIVES levofloxacin [From LEVAQUIN] Adverse Reaction (Severe, Verified 07/17/24 12:01) AGITATION morphine [MORPHINE] Adverse Reaction (Severe, Verified 07/17/24 12:01) HEADACHES adhesives Allergy (Intermediate, Uncoded 07/17/24 12:01) rash Is last menstrual period known: Yes HPI Comments Details: Patient is here today for a follow up pelvic ultrasound due to ovarian cyst. She has not experienced any pelvic pain, denies any concerns today. [facility] Medical History (Updated 06/26/24 @ 12:38 by Lala Gray PA-C) Sinus infection Ovarian cyst GERD (gastroesophageal reflux disease) IUD (intrauterine device) in place History of blood transfusion Medullary sponge kidney Asthma History of seizure Seasonal allergies RADHA (obstructive sleep apnea) History of chemotherapy (~2012) Hx of radiation therapy (~2012) Recent bereavement Left arm pain Neck pain Retrognathia Vaginal discharge Rash Subconjunctival hemorrhage of left eye Upper respiratory tract infection Hemorrhoids with complication Physical exam Myalgia Right wrist pain Right shoulder pain Screen for STD (sexually transmitted disease) Retained tampon COVID-19 Conjunctivitis Well woman exam Breast pain Shortness of breath PVC (premature ventricular contraction) PAC (premature atrial contraction) Colon cancer (~2012) DVT (deep venous thrombosis) Heart palpitations Shortness of breath Surgical History History of kidney surgery Hx of colonoscopy History of esophagogastroduodenoscopy (EGD) H/O knee surgery History of colon surgery Family History (Updated 06/06/24 @ 10:41 by BOGDAN Llnaos) Mother High blood pressure COPD (chronic obstructive pulmonary disease) History of four vessel coronary artery bypass graft Mental health disorder Father High blood pressure Cancer Maternal Grandfather Colon cancer Paternal Aunt Colon cancer Social History Housing: House Are you a primary adult daycare coordinator to a significant other at home: No Do you presently have visiting nurse or other home services: No Alcohol intake: current Alcohol intake frequency: holidays/special occasions only Alcohol type: wine Patient Tobacco Use Status: Former Tobacco user Tobacco use type: Smokeless Tobacco e-Cigarette/Vaping Use: Currently Using Second Hand Smoke Exposure: No service: No Current occupational status: employed 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 Current occupational exposures/hazards: No Cognitive needs: No Hearing needs: No Vision needs: No Female Reproductive History Menstrual Age of Menarche: 10 Review of Systems Const All systems reviewed & are unremarkable except as noted in HPI and below Endo Reports no additional complaints Physical Exam Vital Signs: Last Vital Signs BP 122/84 07/17/24 12:00 BMI result Body Mass Index 29.2 Const General: cooperative, healthy appearing and no acute distress Psych Appearance: well kempt Attitude: cooperative Thought process: Normal thought process present Results Reviewed Results Reviewed: [address] [address] Ultrasound Report Signed Patient: Katlyn Shaikh MR#: [id number] : 1975 Acct:[id number] Age/Sex: 49 / F ADM Date: 06/20/24 Loc: HO.US Attending Dr: Kalli Padilla CNM Ordering Physician: Kalli Padilla CNM Date of Service: 06/20/24 Procedure(s): US pelvic and transvaginal Accession Number(s): [id number] cc: Navneet Anguiano PA-C; Kalli Padilla CNM~ EXAMINATION: US PELVIS CLINICAL INFORMATION: Follow-up left ovarian cyst COMPARISON: None available. TECHNIQUE: Ultrasound of the pelvis is performed using both transabdominal and transvaginal transducers along with Doppler. Transvaginal imaging is performed due to inadequate visualization transabdominally. FINDINGS: Uterus: The uterus is anteverted and measures 10.2 x 2.8 x 4.6 cm. The double wall endometrial thickness is 3 mm. The uterus is smooth in contour and has normal myometrial echogenicity. No visible fibroid. Adnexa: Both ovaries are visualized. There is normal color flow to the adnexa. There is no ovarian torsion. There is no pelvic ascites or fluid collection. Right ovary measures 2.1 x 2.1 x 1.8 cm for a volume of 4.2 mL. Left ovary measures 3.6 x 2.4 x 2.0 cm for a volume of 9.1 mL which includes a 2.8 x 1.5 x 1.6 cm benign simple cyst. Previously, multiple cysts were present in the left ovary measuring up to 3.1 cm in size. US/US pelvic and transvaginal IMPRESSION: Benign simple left ovarian cyst. No further follow-up should be necessary. Electronically signed by: Mando Poe MD 07/10/2024 01:13 PM EDT RP Dictated By: Mando Poe MD Signed By: <Electronically signed by Mando Poe MD in OV> 07/10/24 1313 DD/ 1100 TD/TT: 06/20/24 1130 Surveying Or Spatial Science Technician: SS Assessment & Plan Assessment & Plan (1) Encounter to discuss test results: Code(s): Z71.2 - Person consulting for explanation of examination or test findings Plan: Discussed ultrasound findings, benign ovarian cysts, no longer multiple cysts noted on the left side. Monitor for any symptoms report them if concerns. Next annual exam as 06/08/2025. All of her questions and concerns were addressed to the best of my ability and shared decision making. She is agreeable to the plan of care. This note is constructed using voice recognition software. While every effort has been made to ensure accuracy, regional sales manager errors may have been included. Coding Level of Care Code Est Pt Level 3 (08950) Diagnoses Encounter to discuss test results Z71.2
== END 2024-07-17 12:34 | disposition home or self-care (01) ==
PROVIDERS: PCP Physician Assistant; Visit Provider Advanced Practice Midwife
DX: Z71.2 Person consulting for explanation of examination or test findings (principal)
CPT/HCPCS: 99213

== ENCOUNTER → 2024-07-17 11:21 | Outpatient (BNVA) | payer OTHER, SELFPAY | PROVIDERS: PCP Physician Assistant; Visit Provider Advanced Practice Midwife ==

== ENCOUNTER 2024-07-18 14:23 | Outpatient (AMB) | payer OTHER, SELFPAY ==
--- NOTE | 2024-07-18 14:31 | MHC.PC.OV ---
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 Sales Required: No Accompanied by: Self / Same As Patient Allergies shrimp [SHRIMP] Allergy (Severe, Verified 07/18/24 14:43) Anaphylaxis latex [LATEX] Allergy (Intermediate, Verified 07/18/24 14:43) RASH Penicillins Allergy (Intermediate, Verified 07/18/24 14:43) Itching Sulfa (Sulfonamide Antibiotics) [SULFA (SULFONAMIDE ANTIBIOTICS)] Allergy (Intermediate, Verified 07/18/24 14:43) HIVES levofloxacin [From LEVAQUIN] Adverse Reaction (Severe, Verified 07/18/24 14:43) AGITATION morphine [MORPHINE] Adverse Reaction (Severe, Verified 07/18/24 14:43) HEADACHES adhesives Allergy (Intermediate, Uncoded 07/18/24 14:43) rash Medication List - Last Reconciled 07/18/24 by Ailyn Quintana MD albuterol sulfate 90 mcg/actuation 1 inh inhalation QID PRN azelastine 0.05% 1 drp ophthalmic (eye) BID PRN bupropion HCl XL 300 mg PO QAM 90 days CPAP (CPAP Machine/Device) As directed fexofenadine (Keeley Allergy) 180 mg PO DAILY levonorgestrel (Mirena) 20 mcg intrauterine DIRECTED omeprazole 20 mg PO DAILY oxymetazoline 0.05% (Afrin (oxymetazoline)) 2 sprays intranasal Q12H PRN rivaroxaban (Xarelto) 10 mg PO DAILY PRN triamcinolone acetonide 1 spray intranasal DAILY Tobacco use date assessed: 06/19/24 Dental Screening Dental Screen Date: 07/18/24 Did you have a dental visit in the last 12 months?: Yes Did you have a dental problem in the last 6 months where you did not have access to dental care?: No Was dental information given to patient?: Patient has dentist HPI HPI Comments History of Present Illness Details This is a 49-year-old female with mild major depression and history of colon cancer that comes for her physical exam. Depression stable with bupropion. Had colon cancer in the past and last colonoscopy was this year. No chest pain or shortness on breath. [facility] Medical History (Updated 07/18/24 @ 16:33 by Ailyn Quintana MD) Physical exam Sinus infection Ovarian cyst GERD (gastroesophageal reflux disease) IUD (intrauterine device) in place History of blood transfusion Medullary sponge kidney Asthma History of seizure Seasonal allergies RADHA (obstructive sleep apnea) History of chemotherapy (~2012) Hx of radiation therapy (~2012) Recent bereavement Left arm pain Neck pain Retrognathia Vaginal discharge Rash Subconjunctival hemorrhage of left eye Upper respiratory tract infection Hemorrhoids with complication Myalgia Right wrist pain Right shoulder pain Screen for STD (sexually transmitted disease) Retained tampon COVID-19 Conjunctivitis Well woman exam Breast pain Shortness of breath PVC (premature ventricular contraction) PAC (premature atrial contraction) Colon cancer (~2012) DVT (deep venous thrombosis) Heart palpitations Shortness of breath Surgical History History of kidney surgery Hx of colonoscopy History of esophagogastroduodenoscopy (EGD) H/O knee surgery History of colon surgery Family History (Updated 07/18/24 @ 14:57 by Ailyn Quintana MD) Mother High blood pressure COPD (chronic obstructive pulmonary disease) History of four vessel coronary artery bypass graft Mental health disorder Father High blood pressure Cancer Maternal Grandfather Colon cancer Paternal Aunt Colon cancer Social History Housing: House Are you a primary home care manager rn to a significant other at home: No Do you presently have visiting nurse or other home services: No Alcohol intake: current Alcohol intake frequency: holidays/special occasions only Alcohol type: wine Patient Tobacco Use Status: Former Tobacco user Tobacco use type: Smokeless Tobacco e-Cigarette/Vaping Use: Currently Using Second Hand Smoke Exposure: No service: No Current occupational status: employed 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 1. Little interest or pleasure in doing things: not at all 2. Feeling down, depressed, or hopeless: not at all 3. Trouble falling or staying asleep, or sleeping too much: not at all 4. Feeling tired or having little energy: not at all 5. Poor appetite or overeating: not at all 6. Feeling bad about yourself - or that you are a failure or have let yourself or your family down: not at all 7. Trouble concentrating on things, such as reading the newspaper or watching television: not at all 8. Moving or speaking so slowly that other people could have noticed. Or the opposite - being so fidgety or restless that you have been moving around a lot more than usual: not at all 9. Thoughts that you would be better off or of hurting yourself in some way: not at all Total score: 0 Depression Screening Interpretation: Negative Depression Screening Done: Yes 03838 - PHQ-9 Billing: Yes Source: Developed by Drs. Phuc Carter, Carlita Mercado, Joseph Christianson and colleagues, with an educational oumar from [employer]. Thrive Questionnaire Date Thrive assessed: 07/18/24 I am a: Patient What is your living situation today?: I have a steady place to live Within the past 12 months, did the food you bought not last and you didn't have the money to get more?: Never true Within the past 12 months, did you worry whether your food would run out before you got money to buy more?: Never true Do you have trouble paying for medicines?: No Do you have trouble getting transportation to medical appointments?: No Do you have trouble paying your heating and electricity bill?: No Do you have trouble taking care of your child, family member or friend?: No Do you have trouble with day-to-day activities such as bathing, preparing meals, shopping, managing finances, etc.?: No Are you currently unemployed and looking for a job?: No Are you interested in more education?: No Please select the resources that you would like help with: None Currently or been in a relationship where the following occur: No concerns reported THRIVE Score: 0 AUDIT C Alcohol Use Questionnaire (AUDIT-C) 1. How often do you have a drink containing alcohol?: 2-4 times a month 2. How many drinks containing alcohol do you have on a typical day when you are drinking?: 1 or 2 3. How often do you have six or more drinks on one occasion?: Never Total Score: 2 Score Reviewed/Action Taken: No CHAVA-7 AMB Questionnaire CHAVA-7 Date CHAVA - 7 assessed: 07/18/24 Feeling nervous, anxious, or on edge: 1 = Several days Not being able to stop or control worryin = Not at all Worrying too much about different things: 0 = Not at all Trouble relaxin = Not at all Being so restless that it is hard to sit still: 0 = Not at all Becoming easily annoyed or irritable: 0 = Not at all Feeling afraid as if something awful might happen: 0 = Not at all Total CHAVA-7 score (0-4 normal; 5-9 mild; 10-14 moderate; 15-21 severe): 1 Source: Developed by Drs. Phuc Carter, Carlita Mercado, Joseph Christianson and colleagues, with an educational oumar from [employer]. CHAVA-7 Assessment Billing CHAVA-7 Assessment Tool: CHAVA-7 Assessment 43628 Review of Systems Const All systems reviewed & are unremarkable except as noted in HPI and below Card Denies chest pain at rest, Denies chest pain with activity, Denies edema, Denies irregular heart rhythm, Denies claudication, Denies dyspnea, Denies dyspnea on exertion, Denies orthopnea, Denies paroxysmal nocturnal dyspnea and Denies slow heart rate Resp Denies cough, Denies dyspnea and Denies dyspnea on exertion GI Denies abdominal pain, Denies change in bowel habits, Denies excessive flatus, Denies nausea and Denies vomiting Physical exam (Primary Care) Vital Signs: Last Vital Signs BP 112/80 07/18/24 14:33 BMI result Body Mass Index 29.5 Tobacco/Smoking Status: Tobacco use Status Tobacco use date assessed 06/19/24 07/18/24 14:33 Patient Tobacco Use Status Former Tobacco user 07/18/24 14:33 Tobacco use type Smokeless Tobacco 07/18/24 14:33 e-Cigarette/Vaping Use Currently Using 07/18/24 14:33 PHQ-9: PHQ-9 Score PHQ-9: Total score 0 07/18/24 14:45 Depression Screening Interpretation: Negative Thrive Assessment: Date of Thrive Assessment Date Thrive assessed 07/18/24 07/18/24 14:33 Currently or been in a relationship where the following occur: No concerns reported HENOK Head: Yes normal to inspection, Yes normocephalic and Yes atraumatic Ears: external ears normal Eyes General: appearance normal, both eyes and all related structures Eyelids: Yes eyelids normal Conjunctivae: conjunctivae normal Neck Neck: Yes normal visual inspection and Yes supple Resp Effort & Inspection: normal respiratory effort Auscultation: clear to auscultation bilaterally Cardio Jugular venous distension: no JVD Rate: regular rate Rhythm: regular rhythm Heart sounds: S1 normal heart sound present and S2 normal heart sound present GI Inspection: Yes normal to inspection Palpation (GI): Soft to palpation and nontender Auscultation: normal bowel sounds Skin General skin exam: no rashes or lesions noted Neuro General: no focal motor deficits Extrem General: Yes full ROM Psych Appearance: grossly normal Assessment and Plan Assessment & Plan (1) Physical exam: Code(s): Z00.00 - Encounter for general adult medical examination without abnormal findings Plan: Repeat in a year. (2) Mild major depression: Code(s): F32.0 - Major depressive disorder, single episode, mild Plan: Continue bupropion. (3) Colon cancer: Code(s): C18.9 - Malignant neoplasm of colon, unspecified Qualifiers: Colon location: unspecified part of colon Qualified Code(s): C18.9 - Malignant neoplasm of colon, unspecified Plan: Follow-up with Hematology-Oncology and Gastroenterology. Orders: Orders Lipid Panel Today Z00.00 - Encounter for general adult medical examination without abnormal findings Comprehensive [place]. Panel Fast Today Z00.00 - Encounter for general adult medical examination without abnormal findings Complete Blood Count Auto Diff Today J45.909 - Unspecified asthma, uncomplicated Coding Level of Care Code Est Pt Prev Care 40-64y(01831) Diagnoses Physical exam Z00.00 Mild major depression F32.0 Malignant neoplasm of colon, unspecified part of colon C18.9 Colon location: unspecified part of colon Additional Codes CHAVA-7 Assessment Billing - CHAVA-7 Assessment Tool: CHAVA-7 Assessment 38560 ([id number]) Time Spent (min) 31
[2024-07-18 14:33] VITALS: BP 112/80; BMI 29.5
== END 2024-07-18 15:08 | disposition home or self-care (01) ==
PROVIDERS: Visit Provider Internal Medicine
DX: Z00.00 Encounter for general adult medical examination without abnormal findings (principal); F32.0 Major depressive disorder, single episode, mild; C18.9 Malignant neoplasm of colon, unspecified
CPT/HCPCS: 99396

== ENCOUNTER 2024-07-26 07:40 | Outpatient (REF) | payer OTHER, SELFPAY ==
[2024-07-27 12:26] LABS: CT PCR NOT DETECTED (Not Detect.); NG PCR NOT DETECTED (Not Detect.)
[2024-07-27 14:38] LABS: Bacterial Vaginosis PCR NEGATIVE (Negative); Candida Group PCR NOT DETECTED (Not Detect); Candida glab krusei PCR NOT DETECTED (Not Detect); Trichomonas vaginalis PCR NOT DETECTED (Not Detect)
== END 2024-07-26 07:41 | disposition home or self-care (01) ==
LOC: HO.LNP 07:40
PROVIDERS: PCP Physician Assistant; Visit Provider Obstetrics & Gynecology
DX: Z20.2 Contact with and (suspected) exposure to infections with a predominantly sexual mode of transmission (principal)
CPT/HCPCS: 0352U; 87491; 87591

== ENCOUNTER 2024-07-26 07:40 | Outpatient (AMB) | payer OTHER, SELFPAY ==
[2024-07-26 07:47] VITALS: BMI 29.3
--- NOTE | 2024-07-26 07:47 | A.OFFVIS_ITS ---
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 Specialist Required: No Information Interpreted: non-clinical & clinical Open Cut Examiner: Open Cut Examiner Present (Andreia Plummer BOGDAN) Accompanied by: Self / Same As Patient Allergies shrimp [SHRIMP] Allergy (Severe, Verified 07/26/24 07:47) Anaphylaxis latex [LATEX] Allergy (Intermediate, Verified 07/26/24 07:47) RASH Penicillins Allergy (Intermediate, Verified 07/26/24 07:47) Itching Sulfa (Sulfonamide Antibiotics) [SULFA (SULFONAMIDE ANTIBIOTICS)] Allergy (Intermediate, Verified 07/26/24 07:47) HIVES levofloxacin [From LEVAQUIN] Adverse Reaction (Severe, Verified 07/26/24 07:47) AGITATION morphine [MORPHINE] Adverse Reaction (Severe, Verified 07/26/24 07:47) HEADACHES adhesives Allergy (Intermediate, Uncoded 07/26/24 07:47) rash HPI Comments Details: The patient is presenting for sexually transmitted disease screen, no vaginal discharge, no lesions identified and no specific sexually transmitted disease exposure according to the patient. [facility] Medical History Physical exam Sinus infection Ovarian cyst GERD (gastroesophageal reflux disease) IUD (intrauterine device) in place History of blood transfusion Medullary sponge kidney Asthma History of seizure Seasonal allergies RADHA (obstructive sleep apnea) History of chemotherapy (~2012) Hx of radiation therapy (~2012) Recent bereavement Left arm pain Neck pain Retrognathia Vaginal discharge Rash Subconjunctival hemorrhage of left eye Upper respiratory tract infection Hemorrhoids with complication Myalgia Right wrist pain Right shoulder pain Screen for STD (sexually transmitted disease) Retained tampon COVID-19 Conjunctivitis Well woman exam Breast pain Shortness of breath PVC (premature ventricular contraction) PAC (premature atrial contraction) Colon cancer (~2012) DVT (deep venous thrombosis) Heart palpitations Shortness of breath Surgical History History of kidney surgery Hx of colonoscopy History of esophagogastroduodenoscopy (EGD) H/O knee surgery History of colon surgery Family History Mother High blood pressure COPD (chronic obstructive pulmonary disease) History of four vessel coronary artery bypass graft Mental health disorder Father High blood pressure Cancer Maternal Grandfather Colon cancer Paternal Aunt Colon cancer Social History Housing: House Are you a primary landcare officer to a significant other at home: No Do you presently have visiting nurse or other home services: No Alcohol intake: current Alcohol intake frequency: holidays/special occasions only Alcohol type: wine Patient Tobacco Use Status: Former Tobacco user Tobacco use type: Smokeless Tobacco e-Cigarette/Vaping Use: Currently Using Second Hand Smoke Exposure: No service: No Current occupational status: employed 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 Current occupational exposures/hazards: No Cognitive needs: No Hearing needs: No Vision needs: No Female Reproductive History Menstrual Age of Menarche: 10 Review of Systems Const All systems reviewed & are unremarkable except as noted in HPI and below Physical Exam Vital Signs: BMI result Body Mass Index 29.3 General: Yes no CVA tenderness External Female Exam: normal external appearance and normal appearance of the urethra Speculum Exam - Vagina: normal appearance of the vagina, normal palpation, no lesions and no masses Speculum Exam - Cervix: normal appearance of the cervix, normal palpation, no lesions, no masses, nontender and Other cervical findings present (IUD string seen) Bimanual exam- vagina & uterus: normal bimanual exam, normal palpation, uterine size normal, normal palpation, uterine shape normal, No Cervical tenderness present and non-tender Bimanual Exam- Adnexa, other: normal adnexae Back/Spine/Pelvis Back: no CVA tenderness Assessment & Plan Assessment & Plan (1) Screen for STD (sexually transmitted disease): Code(s): Z11.3 - Encounter for screening for infections with a predominantly sexual mode of transmission Category: Medical Plan: STD screening tests done includes: BV panel for trichomonas, GC/CT will send patient for serology std screening for HIV, RPR, Hep b s Ag, HepC Ab. Instructions given the patient to schedule a follow-up appointment for repeat serology screen in 6 months for possible false negatives. Orders: Orders HIV Ab/Ag Today Z20.2 - Contact with and (suspected) exposure to infections with a predominantly sexual mode of transmission Syphilis Screen Today Z20.2 - Contact with and (suspected) exposure to infections with a predominantly sexual mode of transmission Hepatitis B Surface Antigen Today Z20.2 - Contact with and (suspected) exposure to infections with a predominantly sexual mode of transmission Hepatitis C Antibody Today Z20.2 - Contact with and (suspected) exposure to i nfections with a predominantly sexual mode of transmission Coding Level of Care Code Est Pt Level 3 (54285) Diagnoses Screen for STD (sexually transmitted disease) Z11.3
== END 2024-07-26 09:56 | disposition home or self-care (01) ==
LOC: HO.HWS 07:40
PROVIDERS: PCP Physician Assistant; Visit Provider Obstetrics & Gynecology
DX: Z11.3 Encounter for screening for infections with a predominantly sexual mode of transmission (principal)
CPT/HCPCS: 99213

== ENCOUNTER 2024-07-27 06:35 | Outpatient (REF) | payer OTHER, SELFPAY ==
[2024-07-27 06:44] LABS: MANUAL DIFF FLAG NO
[2024-07-27 07:58] LABS: Basophils Percent Auto 0.7 % (0-2); Eosinophils Absolute Auto 0.1 X10*3/uL (0.0-0.4); Hemoglobin 12.6 g/dl (12.0-16.0); Lymphocytes Absolute Auto 1.2 X10*3/uL (1.2-4.9); Lymphocytes Percent Auto 28.1 % (20-40); Mean Corpuscular HGB Conc 34.1 g/dl (31.0-35.0); Mean Corpuscular Hemoglobin 31.2 pg (27.0-33.0); Mean Corpuscular Volume 91.6 fL (80.0-98.0); Mean Platelet Volume 10.1 fL (9.4-12.3); Monocytes Absolute Auto 0.4 X10*3/uL (0.1-1.2); Neutrophils Absolute Auto 2.4 x10*3/uL (2.0-8.3); Neutrophils Percent Auto 59.2 % (45-73); Platelet Count 192 X10*3/uL (160-400); Red Blood Count 4.04 X10*6/uL (4.20-5.50); Red Cell Distribution Width 12.9 % (11.0-16.0); White Blood Count 4.1 X10*3/uL (4.8-10.8)
[2024-07-27 08:30] LABS: Alanine Aminotransferase 33 U/L (0-31); Albumin Level 4.6 g/dL (3.5-5.0); Alkaline Phosphatase 54 U/L (39-117); Anion Gap 12 (12-20); Aspartate Amino Transferase 32 U/L (5-31); Bilirubin Total 0.9 mg/dL (0.0-1.0); Blood Urea Nitrogen 12 mg/dL (9-16); Calcium 9.9 mg/dL (8.4-10.2); Carbon Dioxide 28 mmol/L (22-29); Chloride 103 mmol/L (96-108); Cholesterol 211 mg/dL (<200); Estimated Glomerular Filt Rate > 60; Glucose Fasting 96 mg/dL (60-99); HDL Cholesterol 76 mg/dL (>40); LDL Cholesterol Calculated 127 mg/dL (<100); Potassium 4.4 mmol/L (3.3-5.1); Sodium 139 mmol/L (135-145); Total Protein 7.6 g/dL (6.5-8.0); Triglycerides 42 mg/dL (<150)
[2024-07-27 09:10] LABS: Syphilis Screen Nonreactive (Nonreactive)
[2024-07-27 09:11] LABS: HBsAGNum1 0.28 S/CO (0.00-0.99); HIV AB/AG Nonreactive (Nonreactive); HIV Num 1 0.04 S/CO (0.00-0.99); Hepatitis B Surface Antigen Negative (Negative); ~HepC Num1 0.09 S/CO (0.00-0.79); ~Hepatitis C Antibody Nonreactive (Nonreactive)
== END 2024-07-27 06:36 | disposition home or self-care (01) ==
LOC: HO.LAB 06:35
PROVIDERS: Absent Provider Obstetrics & Gynecology; PCP Internal Medicine; Visit Provider Internal Medicine
DX: Z00.00 Encounter for general adult medical examination without abnormal findings (principal); Z20.2 Contact with and (suspected) exposure to infections with a predominantly sexual mode of transmission; J45.909 Unspecified asthma, uncomplicated
CPT/HCPCS: 36415; 80053; 80061; 85025; 86780; 86803; 87340; 87389

== ENCOUNTER 2024-08-08 09:52 | Outpatient (AMB) | payer OTHER, SELFPAY ==
--- NOTE | 2024-08-08 09:59 | MHC.PC.OV ---
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 Required: No Accompanied by: Self / Same As Patient Allergies shrimp [SHRIMP] Allergy (Severe, Verified 08/08/24 10:05) Anaphylaxis latex [LATEX] Allergy (Intermediate, Verified 08/08/24 10:05) RASH Penicillins Allergy (Intermediate, Verified 08/08/24 10:05) Itching Sulfa (Sulfonamide Antibiotics) [SULFA (SULFONAMIDE ANTIBIOTICS)] Allergy (Intermediate, Verified 08/08/24 10:05) HIVES levofloxacin [From LEVAQUIN] Adverse Reaction (Severe, Verified 08/08/24 10:05) AGITATION morphine [MORPHINE] Adverse Reaction (Severe, Verified 08/08/24 10:05) HEADACHES adhesives Allergy (Intermediate, Uncoded 08/08/24 10:05) rash Medication List - Last Reconciled 08/08/24 by Navneet Anguiano PA-C albuterol sulfate 90 mcg/actuation 1 inh inhalation QID PRN azelastine 0.05% 1 drp ophthalmic (eye) BID PRN bupropion HCl XL 300 mg PO QAM 90 days CPAP (CPAP Machine/Device) As directed fexofenadine (Keeley Allergy) 180 mg PO DAILY levonorgestrel (Mirena) 20 mcg intrauterine DIRECTED omeprazole 20 mg PO DAILY oxymetazoline 0.05% (Afrin (oxymetazoline)) 2 sprays intranasal Q12H PRN rivaroxaban (Xarelto) 10 mg PO DAILY PRN triamcinolone acetonide 1 spray intranasal DAILY Tobacco use date assessed: 06/19/24 Dental Screening Dental Screen Date: 07/18/24 HPI Ankle pain HPI Details Patient is a 49-year-old female here today for problem visit. Patient reports he a bump for the upper aspect of her left ankle the was raised in erythematous though over the last few days the pain has gone away. She also reports 2 months ago injuring her left knee will dancing, she did have a ACL tear in her left knee that was repaired quite awhile ago. She reports she continues to have swelling in pain in the anterior joint space. She also reports having some right hip pain in the lateral aspect of her right hip that sometimes radiates down in the lateral aspect of her thigh. Borderline high cholesterol: Recent fasting lipid panel showing borderline high cholesterol and LDL. She has been working on lifestyle and dietary modifications. She does report family history of heart disease [facility] Medical History Physical exam Sinus infection Ovarian cyst GERD (gastroesophageal reflux disease) IUD (intrauterine device) in place History of blood transfusion Medullary sponge kidney Asthma History of seizure Seasonal allergies RADHA (obstructive sleep apnea) History of chemotherapy (~2012) Hx of radiation therapy (~2012) Recent bereavement Left arm pain Neck pain Retrognathia Vaginal discharge Rash Subconjunctival hemorrhage of left eye Upper respiratory tract infection Hemorrhoids with complication Myalgia Right wrist pain Right shoulder pain Screen for STD (sexually transmitted disease) Retained tampon COVID-19 Conjunctivitis Well woman exam Breast pain Shortness of breath PVC (premature ventricular contraction) PAC (premature atrial contraction) Colon cancer (~2012) DVT (deep venous thrombosis) Heart palpitations Shortness of breath Surgical History History of kidney surgery Hx of colonoscopy History of esophagogastroduodenoscopy (EGD) H/O knee surgery History of colon surgery Family History Mother High blood pressure COPD (chronic obstructive pulmonary disease) History of four vessel coronary artery bypass graft Mental health disorder Father High blood pressure Cancer Maternal Grandfather Colon cancer Paternal Aunt Colon cancer Social History Housing: House Are you a primary pharmacist critical care to a significant other at home: No Do you presently have visiting nurse or other home services: No Alcohol intake: current Alcohol intake frequency: holidays/special occasions only Alcohol type: wine Patient Tobacco Use Status: Former Tobacco user Tobacco use type: Smokeless Tobacco e-Cigarette/Vaping Use: Currently Using Second Hand Smoke Exposure: No service: No Current occupational status: employed 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 Current occupational exposures/hazards: No Cognitive needs: No Hearing needs: No Vision needs: No Female Reproductive History Menstrual Age of Menarche: 10 Questionnaire Thrive Questionnaire Date Thrive assessed: 07/18/24 I am a: Patient What is your living situation today?: I have a steady place to live Within the past 12 months, did the food you bought not last and you didn't have the money to get more?: Never true Within the past 12 months, did you worry whether your food would run out before you got money to buy more?: Never true Do you have trouble paying for medicines?: No Do you have trouble getting transportation to medical appointments?: No Do you have trouble paying your heating and electricity bill?: No Do you have trouble taking care of your child, family member or friend?: No Do you have trouble with day-to-day activities such as bathing, preparing meals, shopping, managing finances, etc.?: No Are you currently unemployed and looking for a job?: No Are you interested in more education?: No Please select the resources that you would like help with: None Currently or been in a relationship where the following occur: No concerns reported THRIVE Score: 0 CHAVA-7 AMB Questionnaire CHAVA-7 Date CHAVA - 7 assessed: 07/18/24 Source: Developed by Drs. Phuc Carter, Carlita Mercado, Joseph Christianson and colleagues, with an educational oumar from [employer]. Review of Systems Const Denies headache(s) Eyes Denies loss of vision ENT Denies vertigo, Denies dizziness, Denies headache(s) and Denies sore throat Card Denies chest pain, Denies leg edema and Denies lightheadedness Resp Denies cough, Denies hemoptysis and Denies wheezing GI Denies abdominal pain, Denies melena, Denies constipation, Denies diarrhea and Denies vomiting Denies urinary frequency, Denies dysuria and Denies urinary urgency Musc Denies arthralgias, Denies joint swelling, Denies numbness and Denies tingling Neuro Denies Abnormal speech present, Denies behavioral changes, Denies vertigo, Denies dizziness, Denies headache(s), Denies loss of vision, Denies memory loss, Denies numbness and Denies tingling Psych Denies anxiety, Denies behavioral changes, Denies depression, Denies memory loss and Denies panic attacks Cameron/Lymph Denies easy bleeding and Denies easy bruising Aller/Immun Denies wheezing Physical exam (Primary Care) Vital Signs: Last Vital Signs Pulse 77 08/08/24 10:00 BP 122/72 08/08/24 10:00 Pulse Ox 98 08/08/24 10:00 Oxygen Delivery Method Room Air 08/08/24 10:00 BMI result Body Mass Index 28.6 Tobacco/Smoking Status: Tobacco use Status Tobacco use date assessed 06/19/24 08/08/24 10:06 Patient Tobacco Use Status Former Tobacco user 08/08/24 10:06 Tobacco use type Smokeless Tobacco 08/08/24 10:06 e-Cigarette/Vaping Use Currently Using 08/08/24 10:06 Thrive Assessment: Date of Thrive Assessment Date Thrive assessed 07/18/24 08/08/24 10:06 Currently or been in a relationship where the following occur: No concerns reported Const General: healthy appearing, no acute distress, alert and awake Nutritional Appearance: well nourished Orientation/consciousness: oriented to person, oriented to place and oriented to time HENMT Ears: TM's normal bilaterally General nose exam: Normal nasal mucous membranes and turbinates present Eyes Conjunctivae: conjunctivae normal Sclerae: sclerae normal Pupils: Equal, round and reactive pupils present Neck Neck: Yes no lymphadenopathy and Yes no JVD Thyroid: Thyroid normal Carotids: no bruits Resp Effort & Inspection: normal respiratory effort and not tachypneic Auscultation: no crackles, no rales, no rhonchi and no wheezes Cardio Rate: regular rate Rhythm: regular rhythm Heart sounds: no murmurs and normal S1 and S2 GI Palpation (GI): Soft to palpation, nontender, no hepatomegaly and no splenomegaly Auscultation: normal bowel sounds Skin General skin exam: no rashes or lesions noted and dry skin Neuro General: oriented to person, oriented to place and oriented to time Cranial nerves: Yes Equal, round and reactive pupils present Speech: No Abnormal speech present Gait exam (Neuro): Normal gait present Motor exam (neuro): no tremor noted Extrem Other: LEFT KNEE: SOME LIMITED RANGE OF MOTION, SOME JOINT SPACE TENDERNESS TO PALPATION IN THE ANTERIOR ASPECT, NO NOTABLE LIGAMENTOUS LAXITY Right upper extremity: full ROM Left upper extremity: full ROM Right lower extremity: full ROM; no edema Left lower extremity: full ROM; no edema Psych Mental Status: mental status grossly normal Speech and movement: Normal speech and movement present Affect: normal affect Attitude: cooperative Thought process: Normal thought process present Coding Level of Care Code Est Pt Level 4 (63111) Diagnoses Acute left ankle pain M25.572 Chronicity: acute Family history of heart disease Z82.49 Borderline high cholesterol E78.9 Sprain of anterior cruciate ligament of left knee, subsequent encounter S83.512D Encounter type: subsequent encounter Involved ligament of knee: anterior cruciate ligament Complex tear of medial meniscus of left knee as current injury, initial encounter S83.232A Encounter type: initial encounter Meniscus of knee: medial Meniscus tear of knee type: complex Tear current or old: current Right hip pain M25.551 Assessment & Plan Assessment & Plan (1) Left ankle pain: Code(s): M25.572 - Pain in left ankle and joints of left foot Category: Medical Qualifiers: Chronicity: acute Qualified Code(s): M25.572 - Pain in left ankle and joints of left foot Plan: As per HPI patient feels she has made been bitten by a bug in the area of concern. Has clinically been improving. (2) Family history of heart disease: Code(s): Z82.49 - Family history of ischemic heart disease and other diseases of the circulatory system Category: Medical Plan: As per HPI, reports her mother had triple bypass in her 70s. (3) Borderline high cholesterol: Code(s): E78.9 - Disorder of lipoprotein metabolism, unspecified Category: Medical Plan: Most recent lipid panel showing borderline high cholesterol. She will work on lifestyle and dietary modifications to reduce her cholesterol. (4) Left knee sprain: Code(s): S83.92XA - Sprain of unspecified site of left knee, initial encounter Category: Medical Qualifiers: Encounter type: subsequent encounter Involved ligament of knee: anterior cruciate ligament Qualified Code(s): S83.512D - Sprain of anterior cruciate ligament of left knee, subsequent encounter Plan: Patient reports left knee pain since an insulin dancing 2 months ago. She has been left with some decreased range of motion and continued joint space pain and swelling. Of note She does have a history of ACL reconstruction surgery. (5) Tear of meniscus of left knee: Code(s): S83.207A - Unspecified tear of unspecified meniscus, current injury, left knee, initial encounter Category: Medical Qualifiers: Encounter type: initial encounter Meniscus of knee: medial Meniscus tear of knee type: complex Tear current or old: current Qualified Code(s): S83.232A - Complex tear of medial meniscus, current injury, left knee, initial encounter Plan: As above Will try for MRI of the left knee as she has had left knee surgery in the past. Recent acute injury to her left knee while dancing and has continued swelling and joint pain tenderness. (6) Right hip pain: Code(s): M25.551 - Pain in right hip Category: Medical Plan: As per HPI Orders: Orders MR knee LT wo con Today S83.232A - Complex tear of medial meniscus, current injury, left knee, initial encounter Comprehensive [place]. Panel Fast 6 Months E78.9 - Disorder of lipoprotein metabolism, unspecified PT Evaluation and Treatment Today S83.512D - Sprain of anterior cruciate ligament of left knee, subsequent encounter XR knee LT 3V Today S83.512D - Sprain of anterior cruciate ligament of left knee, subsequent encounter XR hip RT 1V Today M25.551 - Pain in right hip Lipid Panel 6 Months E78.9 - Disorder of lipoprotein metabolism, unspecified Referrals Orthopedics Referral S83.512D - Sprain of anterior cruciate ligament of left knee, subsequent encounter Medications: Refilled omeprazole 20 mg PO DAILY 90 caps 0RF
[2024-08-08 10:00] VITALS: BP 122/72; PULSE 77; O2SAT 98; BMI 28.6
== END 2024-08-08 10:28 | disposition home or self-care (01) ==
PROVIDERS: PCP Physician Assistant; Visit Provider Physician Assistant
DX: M25.572 Pain in left ankle and joints of left foot (principal); Z82.49 Family history of ischemic heart disease and other diseases of the circulatory system; E78.9 Disorder of lipoprotein metabolism, unspecified; S83.512D Sprain of anterior cruciate ligament of left knee, subsequent encounter; S83.232A Complex tear of medial meniscus, current injury, left knee, initial encounter; M25.551 Pain in right hip

== ENCOUNTER → 2024-08-08 09:52 | Outpatient (BNVA) | payer OTHER, SELFPAY | PROVIDERS: PCP Physician Assistant; Visit Provider Physician Assistant ==

== ENCOUNTER 2024-08-09 08:17 | Outpatient (REF) | payer OTHER, SELFPAY ==
--- NOTE | ~2024-08-09 | XR_ITS ---
EXAMINATION: XR HIP RIGHT 2 VIEWS CLINICAL INFORMATION: Pain in right hip M25.551. COMPARISON: CT Abdomen pelvis with IV contrast 12/18/2023 TECHNIQUE: Two views of the right hip. FINDINGS: The femoral head remains well seated within acetabulum. No acute fracture. The visualized pelvic rim is intact. No pubic symphysis diastasis. The visualized right sacroiliac joint is normal. IUD overlies the pelvis. Surgical clips and chain sutures overlie the pelvis. Soft tissues are otherwise unremarkable. XR/XR hip RT min 2V IMPRESSION: No acute fracture or dislocation of the right hip. Electronically signed by: Christina Hook DO 10/22/2024 04:59 PM EST RP
--- NOTE | ~2024-08-09 | XR_ITS ---
EXAMINATION: XR KNEE LEFT 3 VIEWS CLINICAL INFORMATION: Sprain of anterior cruciate ligament of left knee, subsequent encounter S83.512D. COMPARISON: None available. TECHNIQUE: AP, lateral and sunrise views of the left knee. FINDINGS: Postsurgical changes status post anterior cruciate ligament repair with intact screws at the anteromedial tibial metaphysis. No acute fracture. Mild medial and patellofemoral compartment arthrosis with marginal osteophytes and joint space narrowing. Otherwise, joint spaces are maintained. Small fabella incidentally noted. No joint effusion. Alignment is anatomic. XR/XR knee LT 3V IMPRESSION: 1. Postsurgical changes status post anterior cruciate ligament repair. 2. Mild medial and patellofemoral compartment arthrosis. Electronically signed by: Christina Hook DO 10/22/2024 04:41 PM EST JOHANN
== END 2024-08-09 08:18 | disposition home or self-care (01) ==
LOC: HO.XRAY 08:17
PROVIDERS: PCP Physician Assistant; Visit Provider Physician Assistant
DX: S83.512D Sprain of anterior cruciate ligament of left knee, subsequent encounter (principal); M25.551 Pain in right hip
CPT/HCPCS: 73502; 73562

== ENCOUNTER 2024-08-10 11:48 | Outpatient (REF) | payer OTHER, SELFPAY ==
--- NOTE | ~2024-08-10 | MR_ITS ---
EXAMINATION: MR KNEE WITHOUT CONTRAST, LEFT CLINICAL INFORMATION: Complex tear of medial meniscus. History of left knee ACL tear. Reinjured. COMPARISON: X-ray of the left knee August 09, 2024. TECHNIQUE: MRI of the knee without contrast was performed using routine sequences on a high-field scanner. FINDINGS: MENISCI: Medial Meniscus: There is irregular abnormal signal extending from the femoral to the tibial articular surface of the lateral aspect of the posterior horn and posterior root most likely reflects meniscal tear. Additional oblique increased signal extending along the medial aspect of the posterior horn extending to the tibial articular surface suspicious for recurrent tear versus postsurgical result. The body of the meniscus is attenuated likely reflecting postsurgical result. Lateral Meniscus: Intact LIGAMENTS: Cruciate: Postoperative changes related to anterior cruciate ligament reconstruction which appears intact. There is some cystic change along the tibial tunnel raising the question of degenerative changes and/or attritional partial tearing of the reconstructed ligament in this area. PCL intact Collateral: Intact EXTENSOR MECHANISM: Intact ARTICULAR CARTILAGE/BONE: Patellofemoral Compartment: There is scattered variable thickness cartilage irregularity and fissuring throughout the medial and lateral facets. Additional nonuniform up to high-grade cartilage loss and/or heterogeneity in the medial and central trochlea. Findings indicative of [id number]-[id number] patellofemoral arthrosis. Medial Compartment: There are small marginal osteophytes. There is mild cartilage heterogeneity in the weightbearing portion of the compartment on the femoral side with some surface irregularity of the cartilage. Overall mild arthrosis. Additional subchondral marrow edema in the posterior aspect of the medial plateau compatible with bone contusion or perhaps reactive related to the adjacent suspected meniscal tear. Lateral Compartment: There are small marginal osteophytes. There is at least partial-thickness cartilage loss in the weightbearing tibial articular surface. Minimal cartilage heterogeneity of the femoral articular cartilage. Overall minimal arthrosis. JOINT FLUID AND BURSAE: There is a mild joint effusion and synovitis. No loose bodies. MR/MR knee LT wo con IMPRESSION: 1. Postoperative changes related to anterior cruciate ligament reconstruction which appears intact. Cystic change along the tibial tunnel raise the question of degenerative changes and/or attritional partial tearing of the reconstructed ligament in this area. 2. Tear of the posterior horn and posterior root of the medial meniscus. Possible concomitant postoperative changes. 3. Bone contusion versus reactive edema in the posterior aspect of the medial plateau. 4. Pxme-ag-dbginksy patellofemoral arthrosis. 5. Mild medial compartment arthrosis. Minimal lateral compartment arthrosis. 6. Mild joint effusion and synovitis. Electronically signed by: Willie Rowland MD 08/16/2024 07:07 AM EDT
== END 2024-08-10 11:49 | disposition home or self-care (01) ==
LOC: HO.MRI 11:48
PROVIDERS: Visit Provider Physician Assistant
DX: S83.232A Complex tear of medial meniscus, current injury, left knee, initial encounter (principal)
CPT/HCPCS: 73721

== ENCOUNTER 2024-08-30 10:34 | Outpatient (REF) | payer OTHER, SELFPAY ==
--- NOTE | ~2024-08-30 | XR_ITS ---
EXAMINATION: XR KNEE BILATERAL AP STANDING 1 VIEW CLINICAL INFORMATION: Pain in right knee M25.561. COMPARISON: XR Left knee 08/09/2024 TECHNIQUE: AP bilateral standing view of the knees was obtained. FINDINGS: Degenerative changes are present in both knees, left greater than right with narrowing of the medial compartments. On the left, there is some degenerative change in the lateral compartment as well with a lateral femoral condyle osteophytes. There has been prior anterior cruciate ligament repair on the left. No fractures or dislocations. XR/XR knee standing BI IMPRESSION: Degenerative changes in both knees, left greater than right. Electronically signed by: Manod Poe MD 10/29/2024 09:11 AM DEBORAH
== END 2024-08-30 10:35 | disposition home or self-care (01) ==
LOC: HO.HOSX 10:34
PROVIDERS: Visit Provider Physician Assistant
DX: S83.232A Complex tear of medial meniscus, current injury, left knee, initial encounter (principal); M25.562 Pain in left knee; M25.561 Pain in right knee
CPT/HCPCS: 20610; 73565; J1010; J2003

== ENCOUNTER 2024-08-30 14:25 | Outpatient (AMB) | payer OTHER, SELFPAY ==
--- NOTE | 2024-08-30 14:31 | AM.OFFVISNUR ---
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 Patient reports her sandal got stuck in a rug which made her fall and she heard crunching. Patient reports her knee feels better today but she still has some discomfort. She mentions that she tried Tylenol and icing which gave her mild relief. Allergies shrimp [SHRIMP] Allergy (Severe, Verified 08/30/24 14:38) Anaphylaxis latex [LATEX] Allergy (Intermediate, Verified 08/30/24 14:38) RASH Penicillins Allergy (Intermediate, Verified 08/30/24 14:38) Itching Sulfa (Sulfonamide Antibiotics) [SULFA (SULFONAMIDE ANTIBIOTICS)] Allergy (Intermediate, Verified 08/30/24 14:38) HIVES levofloxacin [From LEVAQUIN] Adverse Reaction (Severe, Verified 08/30/24 14:38) AGITATION morphine [MORPHINE] Adverse Reaction (Severe, Verified 08/30/24 14:38) HEADACHES adhesives Allergy (Intermediate, Uncoded 08/30/24 14:38) rash Assessment & Plan Assessment & Plan Orders: Orders XR knee standing BI Today M25.561 - Pain in right knee, M25.562 - Pain in left knee
--- NOTE | 2024-08-30 14:48 | MHC.OFFVIS ---
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 Allergies shrimp [SHRIMP] Allergy (Severe, Verified 08/30/24 14:38) Anaphylaxis latex [LATEX] Allergy (Intermediate, Verified 08/30/24 14:38) RASH Penicillins Allergy (Intermediate, Verified 08/30/24 14:38) Itching Sulfa (Sulfonamide Antibiotics) [SULFA (SULFONAMIDE ANTIBIOTICS)] Allergy (Intermediate, Verified 08/30/24 14:38) HIVES levofloxacin [From LEVAQUIN] Adverse Reaction (Severe, Verified 08/30/24 14:38) AGITATION morphine [MORPHINE] Adverse Reaction (Severe, Verified 08/30/24 14:38) HEADACHES adhesives Allergy (Intermediate, Uncoded 08/30/24 14:38) rash HPI HPI 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 She denies recent injury. She states she had a Lt acl reconstruction many years ago with Dr Armas from [facility]. She states she has pain with stairs and walking long distances. She feels as though her knee will give out when going up and down the stairs. [facility] Medical History Physical exam Sinus infection Ovarian cyst GERD (gastroesophageal reflux disease) IUD (intrauterine device) in place History of blood transfusion Medullary sponge kidney Asthma History of seizure Seasonal allergies RADHA (obstructive sleep apnea) History of chemotherapy (~2012) Hx of radiation therapy (~2012) Recent bereavement Left arm pain Neck pain Retrognathia Vaginal discharge Rash Subconjunctival hemorrhage of left eye Upper respiratory tract infection Hemorrhoids with complication Myalgia Right wrist pain Right shoulder pain Screen for STD (sexually transmitted disease) Retained tampon COVID-19 Conjunctivitis Well woman exam Breast pain Shortness of breath PVC (premature ventricular contraction) PAC (premature atrial contraction) Colon cancer (~2012) DVT (deep venous thrombosis) Heart palpitations Shortness of breath Surgical History History of kidney surgery Hx of colonoscopy History of esophagogastroduodenoscopy (EGD) H/O knee surgery History of colon surgery Family History Mother High blood pressure COPD (chronic obstructive pulmonary disease) History of four vessel coronary artery bypass graft Mental health disorder Father High blood pressure Cancer Maternal Grandfather Colon cancer Paternal Aunt Colon cancer Social History Housing: House Are you a primary outdoor emergency care technician to a significant other at home: No Do you presently have visiting nurse or other home services: No Alcohol intake: current Alcohol intake frequency: holidays/special occasions only Alcohol type: wine Patient Tobacco Use Status: Former Tobacco user Tobacco use type: Smokeless Tobacco e-Cigarette/Vaping Use: Currently Using Second Hand Smoke Exposure: No service: No Current occupational status: employed 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 Current occupational exposures/hazards: No Cognitive needs: No Hearing needs: No Vision needs: No Female Reproductive History Menstrual Age of Menarche: 10 Review of Systems Const All systems reviewed & are unremarkable except as noted in HPI and below Physical Exam Const General: cooperative, healthy appearing, comfortable, no acute distress, well developed and alert Orientation/consciousness: patient oriented x3 HEENT Head: Yes normal to inspection, Yes normocephalic and Yes atraumatic Eyes General: appearance normal, both eyes and all related structures Resp Effort & Inspection: normal respiratory effort and able to speak in complete sentences Cardio Rate: regular rate Peripheral pulses: Peripheral pulses 2+ throughout GI Palpation (GI): Soft to palpation Skin Lesions: no lesions Rashes: no rashes Neuro General: patient oriented x3 Extrem Other: Left knee: Skin intact, no erythema or joint effusion. Tenderness along the medial and lateral joint line. Full ROM with crepitus. Positive Shanti?s. No ligamentous laxity. NVI. Results Reviewed Results Reviewed: MR knee LT wo con 08/10/24 IMPRESSION: 1. Postoperative changes related to anterior cruciate ligament reconstruction which appears intact. Cystic change along the tibial tunnel raise the question of degenerative changes and/or attritional partial tearing of the reconstructed ligament in this area. 2. Tear of the posterior horn and posterior root of the medial meniscus. Possible concomitant postoperative changes. 3. Bone contusion versus reactive edema in the posterior aspect of the medial plateau. 4. Cruj-ef-ybnddeqf patellofemoral arthrosis. 5. Mild medial compartment arthrosis. Minimal lateral compartment arthrosis. 6. Mild joint effusion and synovitis. Xrays were obtained in the office today and personally reviewed by me of the left knee show mild oa Assessment & Plan Assessment & Plan (1) Tear of meniscus of left knee: Code(s): S83.207A - Unspecified tear of unspecified meniscus, current injury, left knee, initial encounter Category: Medical Qualifiers: Tear current or old: current Encounter type: initial encounter Meniscus of knee: medial Meniscus tear of knee type: complex Qualified Code(s): S83.232A - Complex tear of medial meniscus, current injury, left knee, initial encounter Plan We discussed options today, which include steroid injection vs surgical intervention. The patient did consent to move forward with left kneeinjection, which was tolerated well. She will see how she does over the next 3 months and if her symptoms persist or worsen, she will contact our office to proceed with left knee arthroscopy with possible root repair with dr myles. in the meantime, I recommended rest, ice, and elevation and OTC anti-inflammatories as needed for discomfort. She was also referred to a course of physical therapy in the office today. Orders: Orders XR knee standing BI 08/30/24 M25.561 - Pain in right knee, M25.562 - Pain in left knee Patient Instructions: Scribed for Africa Choi PA-C, by Praful Gomes family practice medical doctor, on 08/30/2024 at 2:30 PM EST.? I, Africa Choi PA-C, have personally reviewed and agree with the information entered by the scribe. Coding Level of Care Code New Pt Level 3 (63809) Complex EM visit Add On G2211 Diagnoses Complex tear of medial meniscus of left knee as current injury, initial encounter S83.232A Tear current or old: current Encounter type: initial encounter Meniscus of knee: medial Meniscus tear of knee type: complex
== END 2024-08-30 15:28 | disposition home or self-care (01) ==
PROVIDERS: PCP Physician Assistant; Visit Provider Physician Assistant
DX: S83.232A Complex tear of medial meniscus, current injury, left knee, initial encounter (principal)
CPT/HCPCS: 99203

== ENCOUNTER 2024-10-02 14:54 | Outpatient (RCR) | payer OTHER, SELFPAY ==
--- NOTE | 2024-08-17 10:56 | MHC.PT.EP ---
[facility] [place] [facility] [place] [facility] [place] [facility] [address] [phone] F: [phone] F: [phone] F: [phone] F: [phone] Physical Therapy Plan of Care Date of Evaluation: 08/17/24 Date of Surgery: N/A Diagnosis: LEFT MEDIAL MENISCAL ROOT TEAR (KP) Assessment: CHARLINE IS NA PLEASANT 49 YO [facility] [place] WHO WAS AT [employer] CELEBRATING HER BIRTHDAY. STATES WAS WALKING ON CARPET, TWISTED TO LOOK FOR FRIENDS AND FELT POP CORN NOISES IN HER KNEE, FELT IMMEDIATE PAIN AND SWELLING. USED ICE THE NEXT DAY THEN TO URGERT CARE. WAS TOLD TO USE IBUPROFEN AND ICE, GIVEN BRACE. DID NOT HELP, PCP ORDERED MRI, FOUND TO HAVE MENISCAL ROOT TEAR AND REFERRED TO PT. CURRENTLY SHE IS AMBULATING WITH AN ANTALGIC GAIT BUT NO ASSISTIVE DEVICE, SHE IS ABLE TO CLIMB STAIRS WITH RECIPROCAL GAIT ALTHOUGH UNCOMFORTABLE. STANDING OR WALKING FOR PROLONGED PERIODS INCREASES PAIN AND SWELLING. SYMPTOMS WORSEN THE DAY PROGRESSES. UPON EXAM IMPAIRMENTS INCLUDE DECREASED KNEE ROM AND STRENGTH, INCREASED EDEMA, INCREASED PAIN. FUNCTIONAL LIMITATIONS INCLUDE DECREASED TOLERANCE TO PROLONGED POSITIONING, LONG PERIODS OF WALKING, STAIR NEGOTIATION. SHE REPORTS DECREASED ABILITY TO PERFORM HOMEMAKING AND WORK TASKS, DECREASED PARTICIPATION IN FITNESS AND RECREATIONAL ACTIVITIES, DISRUPTED SLEEP Frequency and Duration: The patient will be seen 2 X WEEK FOR 4 WEEKS Short Term Goals: INITIATE HEP AND PROMOTE SELF MANAGEMENT OF SYMPTOMS [facility]ci Goals: TO DEMONSTRATE FULL KNEE ROM, EQUAL MAGALIE TO DEMONSTRATE FULL LE STRENGTH, EQUAL MAGALIE TOSTAIRS WITH RECIPROCAL GAIT WITHOUT PAIN GREATER THAN 2/10 TO AMBULATE AD JACK ON LEVEL AND UNEVEN SURFACES FOR FITNESS WITHOUT PAIN GREATER THAN 2/10 TO PERFORM FULL FUNCTIONAL SQUAT WITHOUT SUBSTITUTION Treatment Plan: Modalities to reduce pain, spasms and effusion. Manual therapy to restore motion and function. Therapeutic exercise to improve strength and flexibility. Neuromuscular re-education for posture and balance. Therapeutic activities to return to functional activities of daily living. Electronically signed by: GLENNY GANDHI PT DPT Please sign and return to therapist. Thank you for your referral.
--- NOTE | 2024-10-02 16:44 | MHC.PT.DC ---
[facility] [place] Office [place] Office [place] Office [address] Rodrick Harris [address] [facility] [phone] F: [phone] F: [phone] F: [phone] F: [phone] Physical Therapy Discharge Report Diagnosis: LEFT MEDIAL MENISCAL ROOT TEAR (KP) Date of Surgery: DOI 06/08/24 Date of Evaluation: 08/17/24 Date of Discharge: 10/02/24 Treatments to Date: 8 Cancellations to Date: 0 No Shows to Date: 0 Discharge Status: Improved Function Independent with HEP Discharge Summary: 10.02: Katlyn has been an active participant in her therapy in and out of the clinic she has met most of her therapeutic goals, is I with her home program, is improved of her pain and improved of her function (LEFI outcome improved from 35/80 to 53/80 which is a clinically significant improvement). Electronically signed by: Cosme Massey PT. Please sign and return to therapist. Thank you for your referral.
== END 2024-10-02 16:44 | disposition home or self-care (01) ==
LOC: HO.PT 14:54
PROVIDERS: PCP Physician Assistant; Visit Provider Physician Assistant
DX: S83.512D Sprain of anterior cruciate ligament of left knee, subsequent encounter (principal)
CPT/HCPCS: 97014; 97110; 97112; 97161

== ENCOUNTER 2024-11-21 07:27 | Outpatient (AMB) | payer OTHER, SELFPAY ==
[2024-11-21 07:41] VITALS: BP 122/80; BMI 31.3
--- NOTE | 2024-11-21 07:41 | MHC.PC.OV ---
Vital Signs 11/21/24 07:41 Height 5 ft 9 in Weight 212 lb BMI 31.3 BP 122/80 Blood Pressure Location Lt brachial Position Sitting Intake Visit Reasons: hip pain Administrative Staff Supervisor Required: No Accompanied by: Self / Same As Patient Allergies shrimp [SHRIMP] Allergy (Severe, Verified 11/21/24 07:49) Anaphylaxis latex [LATEX] Allergy (Intermediate, Verified 11/21/24 07:49) RASH Penicillins Allergy (Intermediate, Verified 11/21/24 07:49) Itching Sulfa (Sulfonamide Antibiotics) [SULFA (SULFONAMIDE ANTIBIOTICS)] Allergy (Intermediate, Verified 11/21/24 07:49) HIVES levofloxacin [From LEVAQUIN] Adverse Reaction (Severe, Verified 11/21/24 07:49) AGITATION morphine [MORPHINE] Adverse Reaction (Severe, Verified 11/21/24 07:49) HEADACHES adhesives Allergy (Intermediate, Uncoded 11/21/24 07:49) rash Medication List - Last Reconciled 11/21/24 by Ailyn Quintana MD albuterol sulfate 90 mcg/actuation 1 inh inhalation QID PRN azelastine 0.05% 1 drp ophthalmic (eye) BID PRN bupropion HCl XL 300 mg PO QAM 90 days CPAP (CPAP Machine/Device) As directed fexofenadine (Keeley Allergy) 180 mg PO DAILY levonorgestrel (Mirena) 20 mcg intrauterine DIRECTED omeprazole 20 mg PO DAILY oxymetazoline 0.05% (Afrin (oxymetazoline)) 2 sprays intranasal Q12H PRN rivaroxaban (Xarelto) 10 mg PO DAILY PRN triamcinolone acetonide 1 spray intranasal DAILY Tobacco use date assessed: 11/21/24 Dental Screening Dental Screen Date: 11/21/24 Did you have a dental visit in the last 12 months?: Yes Did you have a dental problem in the last 6 months where you did not have access to dental care?: No Was dental information given to patient?: Patient has dentist HPI HPI Comments History of Present Illness Details The patient is a 49-year-old female presenting with an exacerbation of right hip pain. The issue has been persistent and worsening, interfering with sleep and daily activities. The patient reports a burning sensation and significant pain upon standing. An x-ray conducted in August did not exhibit any fractures or dislocations. She has been engaging in exercises recommended during physical therapy for her left knee, which also includes the hip exercises but no specific physical therapy has been targeted at the hip. The patient suspects possible bursitis due to the nature of symptoms, yet no official diagnosis has been made. There is associated knee pain, previously diagnosed as a root tear, with an MRI confirming arthritis in the left knee. An incidental history of menopause-related symptoms was acknowledged, with potential links to musculoskeletal pain due to hormonal changes. Historical management included the conservative approach and physical therapy for the left knee. The left knee injury originated from a twist and slight sprain in June, confirmed to be unrelated to the hip condition. Weight management and prior health advice incidents were also noted during this visit. She also has GERD stable with PPIs. Mild major depression has been well controlled with bupropion. She also has obstructive sleep apnea but is not able to use the CPAP machine because she takes it out while sleeping. [facility] Medical History Physical exam Sinus infection Ovarian cyst GERD (gastroesophageal reflux disease) IUD (intrauterine device) in place History of blood transfusion Medullary sponge kidney Asthma History of seizure Seasonal allergies RADHA (obstructive sleep apnea) History of chemotherapy (~2012) Hx of radiation therapy (~2012) Recent bereavement Left arm pain Neck pain Retrognathia Vaginal discharge Rash Subconjunctival hemorrhage of left eye Upper respiratory tract infection Hemorrhoids with complication Myalgia Right wrist pain Right shoulder pain Screen for STD (sexually transmitted disease) Retained tampon COVID-19 Conjunctivitis Well woman exam Breast pain Shortness of breath PVC (premature ventricular contraction) PAC (premature atrial contraction) Colon cancer (~2012) DVT (deep venous thrombosis) Heart palpitations Shortness of breath Surgical History History of kidney surgery Hx of colonoscopy History of esophagogastroduodenoscopy (EGD) H/O knee surgery History of colon surgery Family History Mother High blood pressure COPD (chronic obstructive pulmonary disease) History of four vessel coronary artery bypass graft Mental health disorder Father High blood pressure Cancer Maternal Grandfather Colon cancer Paternal Aunt Colon cancer Social History Housing: House Are you a primary women's health care nurse practitioner to a significant other at home: No Do you presently have visiting nurse or other home services: No Alcohol intake: current Alcohol intake frequency: holidays/special occasions only Alcohol type: wine Patient Tobacco Use Status: Former Tobacco user Tobacco use type: Smokeless Tobacco e-Cigarette/Vaping Use: Currently Using Second Hand Smoke Exposure: No service: No Current occupational status: employed 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 1. Little interest or pleasure in doing things: not at all 2. Feeling down, depressed, or hopeless: not at all 3. Trouble falling or staying asleep, or sleeping too much: not at all 4. Feeling tired or having little energy: not at all 5. Poor appetite or overeating: not at all 6. Feeling bad about yourself - or that you are a failure or have let yourself or your family down: not at all 7. Trouble concentrating on things, such as reading the newspaper or watching television: not at all 8. Moving or speaking so slowly that other people could have noticed. Or the opposite - being so fidgety or restless that you have been moving around a lot more than usual: not at all 9. Thoughts that you would be better off or of hurting yourself in some way: not at all Total score: 0 Depression Screening Interpretation: Negative Depression Screening Done: Yes 70395 - PHQ-9 Billing: Yes Source: Developed by Drs. Phuc Carter, Carlita Mercado, Joseph Christianson and colleagues, with an educational oumar from [employer]. Thrive Questionnaire Date Thrive assessed: 11/21/24 I am a: Patient What is your living situation today?: I have a steady place to live Within the past 12 months, did the food you bought not last and you didn't have the money to get more?: Never true Within the past 12 months, did you worry whether your food would run out before you got money to buy more?: Never true Do you have trouble paying for medicines?: No Do you have trouble getting transportation to medical appointments?: No Do you have trouble paying your heating and electricity bill?: No Do you have trouble taking care of your child, family member or friend?: No Do you have trouble with day-to-day activities such as bathing, preparing meals, shopping, managing finances, etc.?: No Are you currently unemployed and looking for a job?: No Are you interested in more education?: No Please select the resources that you would like help with: None Currently or been in a relationship where the following occur: No concerns reported THRIVE Score: 0 AUDIT C Alcohol Use Questionnaire (AUDIT-C) 1. How often do you have a drink containing alcohol?: 2-4 times a month 2. How many drinks containing alcohol do you have on a typical day when you are drinking?: 1 or 2 3. How often do you have six or more drinks on one occasion?: Never Total Score: 2 Score Reviewed/Action Taken: No CHAVA-7 AMB Questionnaire CHAVA-7 Date CHAVA - 7 assessed: 11/21/24 Feeling nervous, anxious, or on edge: 0 = Not at all Not being able to stop or control worryin = Not at all Worrying too much about different things: 0 = Not at all Trouble relaxin = Not at all Being so restless that it is hard to sit still: 0 = Not at all Becoming easily annoyed or irritable: 0 = Not at all Feeling afraid as if something awful might happen: 0 = Not at all Total CHAVA-7 score (0-4 normal; 5-9 mild; 10-14 moderate; 15-21 severe): 0 Source: Developed by Drs. Phuc Carter, Carlita Mercado, Joseph Christianson and colleagues, with an educational oumar from [employer]. CHAVA-7 Assessment Billing CHAVA-7 Assessment Tool: CHAVA-7 Assessment 28088 Review of Systems Const All systems reviewed & are unremarkable except as noted in HPI and below Card Denies chest pain at rest, Denies chest pain with activity, Denies edema, Denies irregular heart rhythm, Denies claudication, Denies dyspnea, Denies dyspnea on exertion, Denies orthopnea, Denies paroxysmal nocturnal dyspnea and Denies slow heart rate Resp Denies cough, Denies dyspnea and Denies dyspnea on exertion Musc Reports arthralgias Neuro Denies behavioral changes and Denies lack of coordination Psych Denies behavioral changes Physical exam (Primary Care) Vital Signs: Last Vital Signs BP 122/80 11/21/24 07:41 BMI result Body Mass Index 31.3 BMI Assessment/Plan discussion: High BMI High, discussed plan: lifestyle, weight reduction, dietary and physical activity Tobacco/Smoking Status: Tobacco use Status Tobacco use date assessed 11/21/24 11/21/24 07:47 Patient Tobacco Use Status Former Tobacco user 11/21/24 07:47 Tobacco use type Smokeless Tobacco 11/21/24 07:47 e-Cigarette/Vaping Use Currently Using 11/21/24 07:47 PHQ-9: PHQ-9 Score PHQ-9: Total score 0 11/21/24 07:47 Depression Screening Interpretation: Negative Thrive Assessment: Date of Thrive Assessment Date Thrive assessed 11/21/24 11/21/24 07:47 Currently or been in a relationship where the following occur: No concerns reported Resp Effort & Inspection: normal respiratory effort Auscultation: clear to auscultation bilaterally Cardio Jugular venous distension: no JVD Rate: regular rate Rhythm: regular rhythm Heart sounds: S1 normal heart sound present and S2 normal heart sound present Extrem General: Yes full ROM Right lower extremity: hip/thigh Details: abnormal ROM Details: pain with active ROM during Details: with ADduction and with flexion and pain with resistance to Details: to ADduction Coding Level of Care Code Est Pt Level 4 (87096) Complex EM visit Add On G2211 Diagnoses Right hip pain M25.551 Sprain of anterior cruciate ligament of left knee, subsequent encounter S83.512D Encounter type: subsequent encounter Involved ligament of knee: anterior cruciate ligament GERD (gastroesophageal reflux disease) K21.9 Mild major depression F32.0 RADHA (obstructive sleep apnea) G47.33 Additional Codes PHQ-9 - 51719 - PHQ-9 Billing: Yes ([id number]) CHAVA-7 Assessment Billing - CHAVA-7 Assessment Tool: CHAVA-7 Assessment 00706 ([id number]) Time Spent (min) 22 Assessment & Plan Assessment & Plan (1) Right hip pain: Code(s): M25.551 - Pain in right hip Category: Medical (2) Left knee sprain: Code(s): S83.92XA - Sprain of unspecified site of left knee, initial encounter Category: Medical Qualifiers: Encounter type: subsequent encounter Involved ligament of knee: anterior cruciate ligament Qualified Code(s): S83.512D - Sprain of anterior cruciate ligament of left knee, subsequent encounter (3) GERD (gastroesophageal reflux disease): Code(s): K21.9 - Gastro-esophageal reflux disease without esophagitis Category: Medical (4) Mild major depression: Code(s): F32.0 - Major depressive disorder, single episode, mild Category: Medical (5) RADHA (obstructive sleep apnea): Comment: MODERATELY SEVERE OBSTRUCTIVE SLEEP APNEA. PATIENT STARTED ON CPAP THERAPY, WITH AUTO PAP MODE AND PRESSURE SETTING 6-16 CM, FULLFACE MASK. USE OF CPAP REMAINS SUBOPTIMAL . HAD A GOOD DISCUSSION AND I HAVE ENCOURAGED THE PATIENT TO USE FOR MORE HOURS, AT LEAST FOR 4 HOURS PER NIGHT. IN ORDER TO GET USE TO THE MASK SHE MAY WEAR IT DURING THE DAYTIME IN THE EVENING WHEN WATCHING TELEVISION. SHE MAY ALSO NEED TO CONTACT THE DME PROVIDER FOR TECHNICAL SUPPORT. Code(s): G47.33 - Obstructive sleep apnea (adult) (pediatric) Category: Medical Plan - Consider the possibility of right hip bursitis. - Suggest physical therapy focused specifically on the right hip. - Consult Dr. Boogie for further evaluation of the right hip and possibly order an MRI if necessary. - Discuss weight management strategies for alleviating musculoskeletal stress. - Monitor possible menopausal symptoms impacting musculoskeletal health. Patient was informed and verbally consented to the use of an ambient scribe for clinic note documentation during this visit. I discussed with the patient that her right hip pain might be attributed to bursitis based on symptoms, although a definitive diagnosis requires further evaluation. Physical therapy targeted at the hip was recommended, as it may provide relief and improve function. Referral to Dr. Boogie for a comprehensive evaluation was advised, with possible imaging if deemed necessary, although immediate justification might face approval challenges. Management of menopausal symptoms that could be exacerbating hip pain was also considered. We discussed the importance of weight management to potentially reduce joint stress and improve overall outcomes. The risks, benefits, and alternatives of these management strategies were also reviewed with the patient. Orders: Orders PT Evaluation and Treatment Today M25.551 - Pain in right hip Referrals Orthopedics Referral M25.551 - Pain in right hip Patient Instructions: - Engage in physical therapy exercises focused on strengthening the right hip. - Follow up with Dr. Boogie to discuss further diagnostic and management options. - Consider weight management techniques to alleviate additional joint stress. - Monitor menopausal symptoms and report any worsening effects on hip pain. - Utilize a knee pillow for sleep comfort.
== END 2024-11-21 08:03 | disposition home or self-care (01) ==
PROVIDERS: PCP Physician Assistant; Visit Provider Internal Medicine
DX: M25.551 Pain in right hip (principal); S83.512D Sprain of anterior cruciate ligament of left knee, subsequent encounter; K21.9 Gastro-esophageal reflux disease without esophagitis; F32.0 Major depressive disorder, single episode, mild; G47.33 Obstructive sleep apnea (adult) (pediatric)

== ENCOUNTER → 2024-11-21 07:27 | Outpatient (BNVA) | payer OTHER, SELFPAY | PROVIDERS: PCP Physician Assistant; Visit Provider Internal Medicine | DX: M25.551 Pain in right hip (principal); S83.512D Sprain of anterior cruciate ligament of left knee, subsequent encounter; K21.9 Gastro-esophageal reflux disease without esophagitis; F32.0 Major depressive disorder, single episode, mild; G47.33 Obstructive sleep apnea (adult) (pediatric) | CPT/HCPCS: 96127 ==

== ENCOUNTER 2024-12-10 08:47 | Outpatient (AMB) | payer OTHER, SELFPAY ==
--- NOTE | 2024-12-10 08:51 | A.OFFVIS_ITS ---
Vital Signs 12/10/24 09:00 Height 5 ft 9 in Weight 211 lb 10.3 oz BMI 31.3 BP 129/58 L Blood Pressure Location Lt brachial Position Sitting Pulse 81 Intake Visit Reasons: 1 yr follow up Intake Note: Katlyn presents in the office as a 1 year follow up. CC: States that she is feeling good and no concerns. 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: No Allergies shrimp [SHRIMP] Allergy (Severe, Verified 12/10/24 09:00) Anaphylaxis latex [LATEX] Allergy (Intermediate, Verified 12/10/24 09:00) RASH Penicillins Allergy (Intermediate, Verified 12/10/24 09:00) Itching Sulfa (Sulfonamide Antibiotics) [SULFA (SULFONAMIDE ANTIBIOTICS)] Allergy (Intermediate, Verified 12/10/24 09:00) HIVES levofloxacin [From LEVAQUIN] Adverse Reaction (Severe, Verified 12/10/24 09:00) AGITATION morphine [MORPHINE] Adverse Reaction (Severe, Verified 12/10/24 09:00) HEADACHES adhesives Allergy (Intermediate, Uncoded 12/10/24 09:00) rash HPI HPI 1 yr follow up: Details: 49 yr old f w/ hx of CRC here for f/u RECAP: She has been having on and off constipation can have bouts of diarrhea as well she has concerns about hemorrhoid and stool around the hemorrhoid being stuck she has been these varying bouts she tried metamucil and had severe diarrhea she uses cholestyramine but not needed it recently Endoscopies and path: EGD/colonoscopy: 10/2022 Endoscopy Findings: mild esophagitis fundic gland polyps Colonoscopy Findings: polyps internal hemorrhoids diverticular disease melanosis coli Path: A. Duodenum, biopsy: Small intestinal mucosa within normal limits. B. Stomach, biopsy: Oxyntic mucosa with mild chronic inactive inflammation; no Helicobacter organisms seen. C. EG junction, biopsy: - Cardiofundic-type mucosa with mild chronic inactive inflammation; no intestinal metaplasia seen. - Squamous mucosa within normal limits. D. Colon, ascending, polypectomies: Tubular adenomata; negative for high-grade dysplasia or carcinoma. Colonoscopy 2023- diverticulosis no polyps INTERIM: she has no concerns bowels are good, small amount of blood months ago she takes align and it helps with bloating and gas appetite is good still taking ppi vaping nowdays EXAM: GENERAL: The patient is well developed and nontoxic. VITAL SIGNS:see workflow HEENT: Nonicteric sclerae, PERRLA, EOMI. Oropharynx clear. Moist mucous membranes. Conjunctivae appear well perfused. No thyroid mass. CHEST: Chest wall is nontender. HEART: Regular rate and rhythm without murmurs. LUNGS: Clear to auscultation bilaterally. ABDOMEN: Soft, positive bowel sounds, nontender, no organomegaly.no flank tenderness SKIN: No rash, no excessive bruising, petechiae, or purpura. NEUROLOGIC: Cranial nerves II-XII intact without motor/sensory deficit. Psych: nml affect A/P: 1/ Hemorrhoids, not a big issue right now 2/ hx of CRC and polyps 3/ esophagitis on PPI 4/ mild raised AST, ALT, had been drinking at the time PLAN: 1/ repeat colonoscopy in 2 yrs or so 2/ cont with PPI 3/ she is taking MV and Vit D supplement 4/ recheck LFT 5/ encouraged on stop vaping PFSH Medical History Physical exam Sinus infection Ovarian cyst GERD (gastroesophageal reflux disease) IUD (intrauterine device) in place History of blood transfusion Medullary sponge kidney Asthma History of seizure Seasonal allergies RADHA (obstructive sleep apnea) History of chemotherapy (~2012) Hx of radiation therapy (~2012) Recent bereavement Left arm pain Neck pain Retrognathia Vaginal discharge Rash Subconjunctival hemorrhage of left eye Upper respiratory tract infection Hemorrhoids with complication Myalgia Right wrist pain Right shoulder pain Screen for STD (sexually transmitted disease) Retained tampon COVID-19 Conjunctivitis Well woman exam Breast pain Shortness of breath PVC (premature ventricular contraction) PAC (premature atrial contraction) Colon cancer (~2012) DVT (deep venous thrombosis) Heart palpitations Shortness of breath Surgical History History of kidney surgery Hx of colonoscopy History of esophagogastroduodenoscopy (EGD) H/O knee surgery History of colon surgery Family History Mother High blood pressure COPD (chronic obstructive pulmonary disease) History of four vessel coronary artery bypass graft Mental health disorder Father High blood pressure Cancer Maternal Grandfather Colon cancer Paternal Aunt Colon cancer Social History Housing: House Are you a primary wound care nurse to a significant other at home: No Do you presently have visiting nurse or other home services: No Alcohol intake: current Alcohol intake frequency: holidays/special occasions only Alcohol type: wine Patient Tobacco Use Status: Former Tobacco user Tobacco use type: Smokeless Tobacco e-Cigarette/Vaping Use: Currently Using Second Hand Smoke Exposure: No service: No Current occupational status: employed 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 Panel Today K75.81 - Nonalcoholic steatohepatitis (ALEGRIA) Coding Level of Care Code Est Pt Level 3 (44382) Diagnoses GERD (gastroesophageal reflux disease) K21.9
[2024-12-10 09:00] VITALS: BP 129/58; PULSE 81; BMI 31.3
--- OUTSIDE RECORDS SUMMARY | 2024-12-10 09:07 | XMS_ITS | Data Portability ---
Author [facility] Address [address] [place] [phone] Care Team Providers Care Public Health Sanitarian Name Role Phone MICHAEL INTERIANO Primary Care Provider Assessment No assessment recorded. Plan of Treatment Reminders Order Date Submit Date Provider Last Modified By Organization Details Last Modified Time Details Appointments None recorded. Lab None recorded. Referral None recorded. Procedures None recorded. Surgeries None recorded. Imaging None recorded. Medication Orders clobetasol 0.05 % topical ointment 2023 024 [facility]/Pharmacy #[id number], [address] [place], [address], 16:28:28 Patient TargetsNo targets recorded. Patient Instructions Encounter Date Encounter Id Patient Instructions Last Modified By Organization Details Last Modified Time 10/18/2024 [id number] dermatitis: care instructions [email or web address] Not available 10/18/2024 16:28:26 Reason for Referral None Reported. Problems Name Problem SNOMED Code Status Onset Date Resolution Date Notes Provider Name and Address Organization Details Recorded Time Depressiv e disorder 17989065 Active CONRAD Bullock [facility] 4 16:18:56 Malignant tumor of colon 445140011 Completed 202310/18/2024 Removal Reason: surgery CONRAD Keane [facility], [facility] [place], [phone] , CONRAD Dumont [facility] 4 16:27:43 Problem Notes None recorded. Medical Equipment None Reported. Allergies Allergen ID Allergen Name Allergen Category Reaction Reaction Severity Criticality Documentation Date Start Date Code Code System Note Provider Name and Address Organization Details Recorded Time 6874218 Substance with sulfonami de structure and antibacte rial mechanism of action (substanc e) medicatio n hives Not available Not available 10/18/2024 67335 8003 SNOMED Ольга Olmedo null, [place] - [facility] 4 16:16:05 [id number] Augmentin medicatio n abdominal pain Not available Not available 10/18/2024 87718 2 RxNorm Ольга Olmedo null, [place] - [facility] 4 16:16:39 Medications Name Sig Start Date Stop Date Status Note LastModified by Organization Details LastModified Time fluconazole 100 mg tablet 10/18 completed Not Available Not Available Not Available doxycycline hyclate 100 mg capsule 10/18 completed Not Available Not Available Not Available azithromyci n 250 mg tablet 10/18 completed Not Available Not Available Not Available fluconazole 150 mg tablet 10/18 completed Not Available Not Available Not Available hydrocortis one-acetic acid 1 %-2 % ear drops 10/18 completed Not Available Not Available Not Available omeprazole 20 mg capsule,del ayed release TAKE 1 CAPSULE BY MOUTH EVERY DAY active Not Available Not Available No t Available clobetasol 0.05 % topical ointment Apply 1 applicati on twice a day by topical route for 14 days. 2023 active Not Available Not Available Not Avai lable polyethylen e glycol 3350 17 gram/dose oral powder active Not Available Not Available Not Available ondansetron 4 mg disintegrat ing tablet 10/18 completed Not Available Not Available Not Available amoxicillin 875 mg-potassiu m clavulanate 125 mg tablet TAKE 1 TABLET BY MOUTH TWICE A DAY FOR 10 DAYS 10/18 completed Not Available Not Available Not Available neomycin-po lymyxin-hyd rocort 3.5 mg-10,000 unit/mL-1 % ear drops,susp 10/18 completed Not Available Not Available Not Available Laxative (bisacodyl) 5 mg tablet,girish yed release active Not Available Not Available Not Available azithromyci n 500 mg tablet 10/18 completed Not Available Not Available Not Available bupropion HCl XL 300 mg 24 hr tablet, extended release TAKE 1 TABLET BY MOUTH EVERY MORNING active Not Available Not Available No t Available Vitals Date Recorded Body height Body mass index (BMI) Body weight Body temperature Respiratory rate Heart rate Oxygen saturation Oxygen saturation in Arterial blood by Pulse oximetry Systolic blood pressure Diastolic blood pressure Provider Name and Address Organization Details Last Updated DateTime 4 175.26 cm 29.5 kg/m2 98868.4 7 g 98 [degF] 18 /min 77 /min 98 % 98 % 138 mm[Hg] 92 mm[Hg] Ольга Olmedo [place] - [facility] 16:22:06 Social History Question Answer Notes LastModified by Organizat ion Details LastModified Time Tobacco Smoking Status Current Every Day Smoker vape CONRAD Bullock - [facility] 10/18/2024 16:20:08 What Is Your Level Of Alcohol Consumption? Occasional [email or web address] Information not available 10/18/2024 How Many Times Per Week Do You Consume Alcohol? 3-4 Times Per Week [email or web address] Information not available 10/18/2024 Have You Had A Flu Shot This Season? Yes [email or web address] Information not available 10/18/2024 Do You Use Any Illicit Or Recreational Drugs? No [email or web address] Information not available 10/18/2024 Have You Recently Traveled Abroad? No [email or web address] Information not available 10/18/2024 Sex: Unknown Functional Status None recorded. Mental Status None recorded. Family History Relationship Description Onset Age of this Age Resolved Age Notes LastModified by Organization Details LastModified Time Father No current problems or disability [email or web address] Not available 10/18 16:19:00 Mother No current problems or disability [email or web address] Not available 10/18 16:19:00 Medical History No medical history recorded. Gynecological HistoryNo gynecological history recorded. Obstetrics History GPAL:G 0 P 0 0 0 0 Past Encounters Encounter ID Performer Location Encounter Start Date Encounter Closed Date Diagnosis/Indication Diagnosis SNOMED-CT Code Diagnosis ICD10 Code Diagnosis Note [id number] [address] [place] [address] 10/10/2020 16:22:23 10/10/2020 18:18:23 [id number] CONRAD Keane [address] [place] [address] 10/18/2024 16:09:58 10/18/2024 16:29:23 Contact dermatitis 72247229 L25.9 Based on your presentati on and exam - I am diagnosis you with Contact Dermatitis This most likely can be related to dyes or environmen kylee exposures. The following recommenda tions will help you with your symptoms.: 1. Cool Compresses to the itchy areas. Heat will only make the rash.2. Do not scratch or itch - this can lead to infection. 3. Take Antihistam jesus alberto - like benadryl - this will help - but when the medication s wear off the redness might return. You need to go directly to the ER if you develop:1. Wheezing2. Throat or tongue swelling3. Difficulty breathing4 . If you pass out. Health Concerns Section Related Observation LastModified by Organization Detai ls LastModified Time None Recorded Concern Status LastModified by Organization Details LastModified Time None Recorded Advance Directives Directive None Recorded Payers Encounter Date Sequence Insurance Name Policy Number Policy Ascencio Covered Member ID Ascencio Member ID Guarantor Name 10/18/2024 1 [employer]) [id number] Katlyn Shaikh [id number] Katlyn Shaikh Notes Date Note Type Note Provider Name and Address Organization Details Recorded Time 10/18/2024 text/html 49 y/o female here with several red, irritated spots on her belly button, upper back, and L leg. Has happened in the past, wants to make sure it isn't ringworm CONRAD Keane [address] [place], [address], [place] - [facility] 10/18/2024 16:31:25 OBGyn Episode No OBEpisode recorded.
== END 2024-12-10 09:34 | disposition home or self-care (01) ==
PROVIDERS: PCP Internal Medicine; Visit Provider Internal Medicine Gastroenterology
DX: K21.9 Gastro-esophageal reflux disease without esophagitis (principal)
CPT/HCPCS: 99213

== ENCOUNTER → 2024-12-10 08:47 | Outpatient (BNVA) | payer OTHER, SELFPAY | PROVIDERS: PCP Internal Medicine; Visit Provider Internal Medicine Gastroenterology ==

== ENCOUNTER 2024-12-17 15:08 | Outpatient (AMB) | payer OTHER, SELFPAY ==
--- NOTE | 2024-12-17 15:30 | A.OFFVIS_ITS ---
Intake Visit Reasons: New Problem-Pain in right hip Allergies shrimp [SHRIMP] Allergy (Severe, Verified 12/10/24 09:00) Anaphylaxis latex [LATEX] Allergy (Intermediate, Verified 12/10/24 09:00) RASH Penicillins Allergy (Intermediate, Verified 12/10/24 09:00) Itching Sulfa (Sulfonamide Antibiotics) [SULFA (SULFONAMIDE ANTIBIOTICS)] Allergy (Intermediate, Verified 12/10/24 09:00) HIVES levofloxacin [From LEVAQUIN] Adverse Reaction (Severe, Verified 12/10/24 09:00) AGITATION morphine [MORPHINE] Adverse Reaction (Severe, Verified 12/10/24 09:00) HEADACHES adhesives Allergy (Intermediate, Uncoded 12/10/24 09:00) rash HPI HPI New Problem-Pain in right hip: Details: 49-year-old female presents to the office today for right hip pain. She states the pain is along the lateral aspect of her hip which radiates to the buttock r egion. She has discomfort when she is sleeping on the right side at night. No groin pain no numbness or tingling. [facility] Medical History Physical exam Sinus infection Ovarian cyst GERD (gastroesophageal reflux disease) IUD (intrauterine device) in place History of blood transfusion Medullary sponge kidney Asthma History of seizure Seasonal allergies RADHA (obstructive sleep apnea) History of chemotherapy (~2012) Hx of radiation therapy (~2012) Recent bereavement Left arm pain Neck pain Retrognathia Vaginal discharge Rash Subconjunctival hemorrhage of left eye Upper respiratory tract infection Hemorrhoids with complication Myalgia Right wrist pain Right shoulder pain Screen for STD (sexually transmitted disease) Retained tampon COVID-19 Conjunctivitis Well woman exam Breast pain Shortness of breath PVC (premature ventricular contraction) PAC (premature atrial contraction) Colon cancer (~2012) DVT (deep venous thrombosis) Heart palpitations Shortness of breath Surgical History History of kidney surgery Hx of colonoscopy History of esophagogastroduodenoscopy (EGD) H/O knee surgery History of colon surgery Family History Mother High blood pressure COPD (chronic obstructive pulmonary disease) History of four vessel coronary artery bypass graft Mental health disorder Father High blood pressure Cancer Maternal Grandfather Colon cancer Paternal Aunt Colon cancer Social History Housing: House Are you a primary patient care secretary to a significant other at home: No Do you presently have visiting nurse or other home services: No Alcohol intake: current Alcohol intake frequency: holidays/special occasions only Alcohol type: wine Patient Tobacco Use Status: Former Tobacco user Tobacco use type: Smokeless Tobacco e-Cigarette/Vaping Use: Currently Using Second Hand Smoke Exposure: No service: No Current occupational status: employed 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 No pain with ROM of the hip. Pain along the greater trochanter. No pain with hip flexion or abduction.There is tenderness along the si joint, Negative SLR. NVI. Assessment & Plan Assessment & Plan (1) Trochanteric bursitis, right hip: Code(s): M70.61 - Trochanteric bursitis, right hip Category: Medical Plan: We discussed options which include PT, NSAIDs and injections. She will defer on the injection today and proceed with PT and NSAIDs. We reviewed HEP today in office. If symptoms persist she will contact me for an injection, otherwise, prn. Coding Level of Care Code Est Pt Level 3 (98052) Complex EM visit Add On G2211 Diagnoses Trochanteric bursitis, right hip M70.61
--- OUTSIDE RECORDS SUMMARY | 2024-12-17 16:14 | XMS_ITS | Data Portability ---
Author Organization [facility] [address] Address [address] [place] [phone] Care Team Providers Care Artificial Flowers Starcher Name Role Phone MICHAEL INTERIANO Primary Care Provider Assessment No assessment recorded. Plan of Treatment Reminders Order Date Submit Date Provider Last Modified By Organization Details Last Modified Time Details Appointments None recorded. Lab None recorded. Referral None recorded. Procedures None recorded. Surgeries None recorded. Imaging None recorded. Medication Orders clobetasol 0.05 % topical ointment 2023 024 [facility]/Pharmacy #[id number], [address] [place], [address], 16:28:28 Patient TargetsNo targets recorded. Patient Instructions Encounter Date Encounter Id Patient Instructions Last Modified By Organization Details Last Modified Time 10/18/2024 [id number] dermatitis: care instructions [email or web address] Not available 10/18/2024 16:28:26 Reason for Referral None Reported. Problems Name Problem SNOMED Code Status Onset Date Resolution Date Notes Provider Name and Address Organization Details Recorded Time Depressiv e disorder 00497197 Active CONRAD Bullock [facility] 4 16:18:56 Malignant tumor of colon 522480988 Completed 202310/18/2024 Removal Reason: surgery CONRAD Keane [facility] [place], [address] , OCNRAD Dumont [facility] 16:27:43 Problem Notes None recorded. Medical Equipment None Reported. Allergies Allergen ID Allergen Name Allergen Category Reaction Reaction Severity Criticality Documentation Date Start Date Code Code System Note Provider Name and Address Organization Details Recorded Time 3107284 Substance with sulfonami de structure and antibacte rial mechanism of action (substanc e) medicatio n hives Not available Not available 10/18/2024 09363 8003 SNOMED Ольга Olmedo null, [place] - [facility] 4 16:16:05 6291663 Augmentin medicatio n abdominal pain Not available Not available 10/18/2024 06092 2 RxNorm Ольга Olmedo null, PA - [...] Updated DateTime 4 175.26 cm 29.5 kg/m2 21992.4 7 g 98 [degF] 18 /min 77 /min 98 % 98 % 138 mm[Hg] 92 mm[Hg] Ольга Olmedo PA - [facility] 16:22:06 Social History Question Answer Notes LastModified by Organizat ion Details LastModified Time Tobacco Smoking Status Current Every Day Smoker vape CONRAD Bullock - [facility] 10/18/2024 16:20:08 What Is Your Level Of Alcohol Consumption? Occasional [email or web address] Information not available 10/18/2024 How Many Times Per Week Do You Consume Alcohol? 3-4 Times Per Week [email or web address] Information not available 10/18/2024 Have You Had A Flu Shot This Season? Yes [email or web address] Information not available 10/18/2024 Do You Use Any Illicit Or Recreational Drugs? No [email or web address] Information not available 10/18/2024 Have You Recently Traveled Abroad? No [email or web address] Information not available 10/18/2024 Sex: Unknown Functional Status None recorded. Mental Status None recorded. Family History Relationship Description Onset Age of this Age Resolved Age Notes LastModified by Organization Details LastModified Time Father No current problems or disability [email or web address] Not available 10/18 16:19:00 Mother No current problems or disability [email or web address] Not available 10/18 16:19:00 Medical History No medical history recorded. Gynecological HistoryNo gynecological history recorded. Obstetrics History GPAL:G 0 P 0 0 0 0 Past Encounters Encounter ID Performer Location Encounter Start Date Encounter Closed Date Diagnosis/Indication Diagnosis SNOMED-CT Code Diagnosis ICD10 Code Diagnosis Note [id number] [address] [facility] [place] [address] 10/10/2020 16:22:23 10/10/2020 18:18:23 [id number] CONRAD Keane [address] [place] [address] 10/18/2024 16:09:58 10/18/2024 16:29:23 Contact dermatitis 20399944 L25.9 Based on your presentati on and [...] Name 10/18/2024 1 [employer] [place] [id number] Katlyn Shaikh [id number] Katlyn Shaikh Notes Date Note Type Note Provider Name and Address Organization Details Recorded Time 10/18/2024 text/html 49 y/o female here with several red, irritated spots on her belly button, upper back, and L leg. Has happened in the past, wants to make sure it isn't ringworm CONRAD Keane [address] [place], [address], [place] - [facility] 10/18/2024 16:31:25 OBGyn Episode No OBEpisode recorded.
== END 2024-12-17 15:31 | disposition home or self-care (01) ==
PROVIDERS: PCP Physician Assistant; Visit Provider Physician Assistant
DX: M70.61 Trochanteric bursitis, right hip (principal)
CPT/HCPCS: 99213

== ENCOUNTER → 2024-12-17 15:08 | Outpatient (BNVA) | payer OTHER, SELFPAY | PROVIDERS: PCP Physician Assistant; Visit Provider Physician Assistant ==

== ENCOUNTER 2024-12-20 13:49 | Outpatient (AMB) | payer OTHER, SELFPAY ==
[2024-12-20 13:53] VITALS: BMI 31.2
--- NOTE | 2024-12-20 13:53 | MHC.OFFVIS ---
Vital Signs 12/20/24 13:53 Height 5 ft 9 in Weight 211 lb BMI 31.2 Intake Visit Reasons: INJ- Right hip injection request Intake Note: Katlyn 49 yr old female presents today for a Trochanteric right hip injection. Allergies shrimp [SHRIMP] Allergy (Severe, Verified 12/20/24 14:01) Anaphylaxis latex [LATEX] Allergy (Intermediate, Verified 12/20/24 14:01) RASH Penicillins Allergy (Intermediate, Verified 12/20/24 14:01) Itching Sulfa (Sulfonamide Antibiotics) [SULFA (SULFONAMIDE ANTIBIOTICS)] Allergy (Intermediate, Verified 12/20/24 14:01) HIVES levofloxacin [From LEVAQUIN] Adverse Reaction (Severe, Verified 12/20/24 14:01) AGITATION morphine [MORPHINE] Adverse Reaction (Severe, Verified 12/20/24 14:01) HEADACHES adhesives Allergy (Intermediate, Uncoded 12/20/24 14:01) rash HPI HPI INJ- Right hip injection request: Details: 49-year-old female returns to the office today for right hip trochanteric bursitis. Over the last few days she has had increased symptoms with pain and discomfort especially while at work standing and walking for long periods at a time. [facility] Medical History Physical exam Sinus infection Ovarian cyst GERD (gastroesophageal reflux disease) IUD (intrauterine device) in place History of blood transfusion Medullary sponge kidney Asthma History of seizure Seasonal allergies RADHA (obstructive sleep apnea) History of chemotherapy (~2012) Hx of radiation therapy (~2012) Recent bereavement Left arm pain Neck pain Retrognathia Vaginal discharge Rash Subconjunctival hemorrhage of left eye Upper respiratory tract infection Hemorrhoids with complication Myalgia Right wrist pain Right shoulder pain Screen for STD (sexually transmitted disease) Retained tampon COVID-19 Conjunctivitis Well woman exam Breast pain Shortness of breath PVC (premature ventricular contraction) PAC (premature atrial contraction) Colon cancer (~2012) DVT (deep venous thrombosis) Heart palpitations Shortness of breath Surgical History History of kidney surgery Hx of colonoscopy History of esophagogastroduodenoscopy (EGD) H/O knee surgery History of colon surgery Family History Mother High blood pressure COPD (chronic obstructive pulmonary disease) History of four vessel coronary artery bypass graft Mental health disorder Father High blood pressure Cancer Maternal Grandfather Colon cancer Paternal Aunt Colon cancer Social History Housing: House Are you a primary laboratory animal care veterinarian to a significant other at home: No Do you presently have visiting nurse or other home services: No Alcohol intake: current Alcohol intake frequency: holidays/special occasions only Alcohol type: wine Patient Tobacco Use Status: Former Tobacco user Tobacco use type: Smokeless Tobacco e-Cigarette/Vaping Use: Currently Using Second Hand Smoke Exposure: No service: No Current occupational status: employed 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 No pain with ROM of the hip. Pain along the greater trochanter. No pain with hip flexion or abduction.There is tenderness along the si joint, Negative SLR. NVI. Office Procedures AMB Joint Injection/Aspiration Joint Injection/Aspiration Details: Right trochanteric bursa Prep: site was prepped using aseptic technique, ethochloride spray was applied and injection warnings given Injected: 80 mg of, DepoMedrol, with 8 mL of and 1% plain lidocaine Procedure: The patient tolerated the procedure well and there was some relief with the local anesthesia Coding 51077 - Glenohumeral/Tronchanteric Bursa/Intraarticular Procedure code (CPT) selection complete Assessment & Plan Assessment & Plan (1) Trochanteric bursitis, right hip: Code(s): M70.61 - Trochanteric bursitis, right hip Category: Medical Plan: We discussed options today, which include steroid injection. The patient did consent to move forward with right trochanteric bursa injection, which was tolerated well.? I recommended rest, ice and elevation and OTC antiinflammatories prn for discomfort. If symptoms persist over the next 6-8 weeks, they will contact our office, otherwise, prn Coding Level of Care Code Est Pt Level 3 (65655) Complex EM visit Add On G2211 Diagnoses Trochanteric bursitis, right hip M70.61 CPT Codes Coding - Joint 7: 46814 - Glenohumeral/Tronchanteric Bursa/Intraarticular ([id number])
--- OUTSIDE RECORDS SUMMARY | 2024-12-20 13:53 | XMS_ITS | Data Portability ---
Author Organization [facility] Address [address] [place] [address] Care Team Providers Care In Shop Service Technician Name Role Phone MICHAEL INTERIANO Primary Care Provider Assessment No assessment recorded. Plan of Treatment Reminders Order Date Submit Date Provider Last Modified By Organization Details Last Modified Time Details Appointments None recorded. Lab None recorded. Referral None recorded. Procedures None recorded. Surgeries None recorded. Imaging None recorded. Medication Orders clobetasol 0.05 % topical ointment 2023 024 [facility]/Pharmacy #[id number], [address] [place], [address], 16:28:28 Patient TargetsNo targets recorded. Patient Instructions Encounter Date Encounter Id Patient Instructions Last Modified By Organization Details Last Modified Time 10/18/2024 [id number] dermatitis: care instructions [email or web address] Not available 10/18/2024 16:28:26 Reason for Referral None Reported. Problems Name Problem SNOMED Code Status Onset Date Resolution Date Notes Provider Name and Address Organization Details Recorded Time Depressiv e disorder 53903318 Active CONRAD Bullock [facility] 4 16:18:56 Malignant tumor of colon 445766793 Completed 202310/18/2024 Removal Reason: surgery CONRAD Keane [facility] [place], [address] , CONRAD Dumont [facility] 16:27:43 Problem Notes None recorded. Medical Equipment None Reported. Allergies Allergen ID Allergen Name Allergen Category Reaction Reaction Severity Criticality Documentation Date Start Date Code Code System Note Provider Name and Address Organization Details Recorded Time 3785264 Substance with sulfonami de structure and antibacte rial mechanism of action (substanc e) medicatio n hives Not available Not available 10/18/2024 68678 8003 SNOMED Ольга Olmedo null, [place] - [facility] 4 16:16:05 6585589 Augmentin medicatio n abdominal pain Not available Not available 10/18/2024 22026 2 RxNorm Ольга Olmedo null, PA - [...] Updated DateTime 4 175.26 cm 29.5 kg/m2 52506.4 7 g 98 [degF] 18 /min 77 /min 98 % 98 % 138 mm[Hg] 92 mm[Hg] Ольга Olmedo PA - [facility] 16:22:06 Social History Question Answer Notes LastModified by Organizat ion Details LastModified Time Tobacco Smoking Status Current Every Day Smoker vape CONRAD Bullock - [facility] 10/18/2024 16:20:08 What Is Your Level Of Alcohol Consumption? Occasional [email or web address] Information not available 10/18/2024 How Many Times Per Week Do You Consume Alcohol? 3-4 Times Per Week [email or web address] Information not available 10/18/2024 Have You Had A Flu Shot This Season? Yes [email or web address] Information not available 10/18/2024 Do You Use Any Illicit Or Recreational Drugs? No [email or web address] Information not available 10/18/2024 Have You Recently Traveled Abroad? No [email or web address] Information not available 10/18/2024 Sex: Unknown Functional Status None recorded. Mental Status None recorded. Family History Relationship Description Onset Age of this Age Resolved Age Notes LastModified by Organization Details LastModified Time Father No current problems or disability [email or web address] Not available 10/18 16:19:00 Mother No current problems or disability [email or web address] Not available 10/18 16:19:00 Medical History No medical history recorded. Gynecological HistoryNo gynecological history recorded. Obstetrics History GPAL:G 0 P 0 0 0 0 Past Encounters Encounter ID Performer Location Encounter Start Date Encounter Closed Date Diagnosis/Indication Diagnosis SNOMED-CT Code Diagnosis ICD10 Code Diagnosis Note [id number] [address] [facility] [place] [address] 10/10/2020 16:22:23 10/10/2020 18:18:23 [id number] CONRAD Keane [address] [place] [address] 10/18/2024 16:09:58 10/18/2024 16:29:23 Contact dermatitis 23648714 L25.9 Based on your presentati on and [...] Name 10/18/2024 1 [employer] [place]) [id number] Katlyn Shaikh [id number] 782 Katlyn Shaikh Notes Date Note Type Note Provider Name and Address Organization Details Recorded Time 10/18/2024 text/html 49 y/o female here with several red, irritated spots on her belly button, upper back, and L leg. Has happened in the past, wants to make sure it isn't ringworm CONRAD Keane [address] [place], [address], [place] - [facility] 10/18/2024 16:31:25 OBGyn Episode No OBEpisode recorded.
--- OUTSIDE RECORDS SUMMARY | 2024-12-20 13:53 | XMS_ITS | Patient Health Record ---
[facility] Organization [facility] Address [address] [place] [address] Care Team Providers Care Personal Fitness Manager Name Role Phone Holly SMITH, Ailyn Primary Care Provider Unavail able Migdalia Luis Unavailable [phone] Allergies Allergen (clinical drug ingredient) Drug/Non Drug Allergy documented on EMR Reaction Allergy Type Onset Date Status sulfamethoxazole / trimethoprim Bactrim hives, breathing difficulty Drug Allergy Active ciprofloxacin Cipro Unknown Drug Allergy Act monico Levaquin psychotic Drug Allergy Active shrimp allergenic extract Shrimp (Diagnostic) anaphylaxis Drug Allergy Active Adhesive rash Allergy Active Latex Latex hives Allergy Active morphine Morphine hives, migraine Drug Allergy A ctive Shellfish (FN) Shellfish-derived Products anaphylaxis Drug Allergy Active Substance with sulfonamide structure and antibacterial mechanism of action (substance) Sulfa Antibiotics hives, breating difficulty Drug Allergy Active Reason For Referral No Information Medications Medication SIG (Take, Route, Fr equency, Duration) Notes Start Date End Date Status Advil PRN Active Albuterol Active EpiPen Active Ammonium Lactate 12 % 1 application to a ffected area Externally to feet Twice a day for 30 days Active Keeley Active LamISIL 250 MG 1 tablet Orally Once a day for 30 days Active Omeprazole 2 MG/ML 5 ml 30 minutes befo re morning meal Orally Once a day for 30 day(s) Active Immunizations Vaccine Route Administration Date Status Comme nts COVID-19 Pfizer BioNTech Vaccine Unknown 11/14/2019 Administered 1st 10/24/2020 Social History Tobacco Use: Social History Observation Description Date Details (start date - stop date) Former Smoker NA - NA Tobacco Use/Smoking Question Answer Notes Are you a: former smoker Additional Findings: Tobacco Non-User Cu rrent non-smoker, but past smoking history unknown Alcohol Screen Question Answer Notes Did you have a drink containing alcohol in the p ast year? Yes Points 0 Interpretation Negative Tobacco use other than smoking: Question Answer Notes Are you an other tobacco user? Yes V ape 4-5 times per day for 2 years Plan Of Treatment Pending Test Test Name Order Date *Liver Function Test (LFT) 06/02/2021 *Liver Function Test (LFT) 07/01/2021 X ray : Foot, right 3V 06/02/2021 Insurance Providers Payer Name Payer Address Payer Phone Subscriber Number Group Number Insured Name Patient Relationship to Insured Coverage Start Date Coverage End Date Blue Benefits [address] [address] [place] [address] [id number] Katlyn Shaikh Self - patient is the insured Medical (General) History Medical History History ICD Code Anemia asthma Cancer Kidney disease Numbness Neuropathy Sciatica Chicken pox Joint implants/screws Transfusions Surgical History Surgery Date(Month/Year) knee surgery, left / complication: blood clot/DVT 2006 colon cancer 2013 portacath placement 2012 Ingrown Toe Nail 2000
== END 2024-12-20 14:04 | disposition home or self-care (01) ==
PROVIDERS: PCP Physician Assistant; Visit Provider Physician Assistant
DX: M70.61 Trochanteric bursitis, right hip (principal)
CPT/HCPCS: 20610; 99213

== ENCOUNTER → 2024-12-20 13:49 | Outpatient (BNVA) | payer OTHER, SELFPAY | PROVIDERS: PCP Physician Assistant; Visit Provider Physician Assistant | DX: M70.61 Trochanteric bursitis, right hip (principal) | CPT/HCPCS: 20610; J1010; J2003 ==

== ENCOUNTER 2024-12-28 07:39 | Outpatient (REF) | payer OTHER, SELFPAY ==
--- OUTSIDE RECORDS SUMMARY | 2024-12-28 07:42 | XMS_ITS | Data Portability ---
Author Organization [facility] [address] Address [address] [place] [address] Care Team Providers Care Printed Circuit Boards Plasma Etcher Name Role Phone MICHAEL INTERIANO Primary Care Provider Assessment No assessment recorded. Plan of Treatment Reminders Order Date Submit Date Provider Last Modified By Organization Details Last Modified Time Details Appointments None recorded. Lab None recorded. Referral None recorded. Procedures None recorded. Surgeries None recorded. Imaging None recorded. Medication Orders clobetasol 0.05 % topical ointment 2023 024 [facility]/Pharmacy #[id number], [address] [place], [address], 16:28:28 Patient TargetsNo targets recorded. Patient Instructions Encounter Date Encounter Id Patient Instructions Last Modified By Organization Details Last Modified Time 10/18/2024 [id number] dermatitis: care instructions [email or web address] Not available 10/18/2024 16:28:26 Reason for Referral None Reported. Problems Name Problem SNOMED Code Status Onset Date Resolution Date Notes Provider Name and Address Organization Details Recorded Time Depressiv e disorder 30128698 Active CONRAD Bullock [facility] 4 16:18:56 Malignant tumor of colon 955609728 Completed 202310/18/2024 Removal Reason: surgery CONRAD Keane [facility] [place], [address] , CONRAD Dumont [facility] 4 16:27:43 Problem Notes None recorded. Medical Equipment None Reported. Allergies Allergen ID Allergen Name Allergen Category Reaction Reaction Severity Criticality Documentation Date Start Date Code Code System Note Provider Name and Address Organization Details Recorded Time 5652532 Substance with sulfonami de structure and antibacte rial mechanism of action (substanc e) medicatio n hives Not available Not available 10/18/2024 27991 8003 SNOMED Ольга Olmedo null, [place] - [facility] 4 16:16:05 7265407 Augmentin medicatio n abdominal pain Not available Not available 10/18/2024 31433 2 RxNorm Ольга Olmedo null, PA - [...] Updated DateTime 4 175.26 cm 29.5 kg/m2 69943.4 7 g 98 [degF] 18 /min 77 /min 98 % 98 % 138 mm[Hg] 92 mm[Hg] Ольга Olmedo PA - [facility] 16:22:06 Social History Question Answer Notes LastModified by Organizat ion Details LastModified Time Tobacco Smoking Status Current Every Day Smoker vape CONRAD Bullock - [facility] 10/18/2024 16:20:08 What Is Your Level Of Alcohol Consumption? Occasional [email or web address] Information not available 10/18/2024 How Many Times Per Week Do You Consume Alcohol? 3-4 Times Per Week [email or web address] Information not available 10/18/2024 Have You Had A Flu Shot This Season? Yes Information not available 10/18/2024 Do You Use Any Illicit Or Recreational Drugs? No [email or web address] Information not available 10/18/2024 Have You Recently Traveled Abroad? No [email or web address] Information not available 10/18/2024 Sex: Unknown Functional Status None recorded. Mental Status None recorded. Family History Relationship Description Onset Age of this Age Resolved Age Notes LastModified by Organization Details LastModified Time Father No current problems or disability [email or web address] Not available 10/18 16:19:00 Mother No current problems or disability [email or web address] Not available 10/18 16:19:00 Medical History No medical history recorded. Gynecological HistoryNo gynecological history recorded. Obstetrics History GPAL:G 0 P 0 0 0 0 Past Encounters Encounter ID Performer Location Encounter Start Date Encounter Closed Date Diagnosis/Indication Diagnosis SNOMED-CT Code Diagnosis ICD10 Code Diagnosis Note [id number] [address] [facility] [address] 10/10/2020 16:22:23 10/10/2020 18:18:23 [id number] CONRAD Keane [address] [place] [address] 10/18/2024 16:09:58 10/18/2024 16:29:23 Contact dermatitis 45745924 L25.9 Based on your presentati on and [...] Name 10/18/2024 1 [employer]) [id number] Katlyn Shaikh [id number] 782 Katlyn Shaikh Notes Date Note Type Note Provider Name and Address Organization Details Recorded Time 10/18/2024 text/html 49 y/o female here with several red, irritated spots on her belly button, upper back, and L leg. Has happened in the past, wants to make sure it isn't ringworm CONRAD Keane [address] [place], [address], [place] - [facility] 10/18/2024 16:31:25 OBGyn Episode No OBEpisode recorded.
--- OUTSIDE RECORDS SUMMARY | 2024-12-28 07:42 | XMS_ITS | Patient Health Record ---
Author Organization [facility] Address [address] [place] [address] Care Team Providers Care Heading Matcher And Assembler Name Role Phone Holly SMITH, Ailyn Primary Care Provider Unavail able Migdalia Luis Unavailable [phone] Allergies Allergen (clinical drug ingredient) Drug/Non Drug [...] Coverage End Date Blue Benefits [address] [address] [place] [address] [id number] Katlyn Shaikh Self - patient is the insured Medical (General) History Medical History History ICD Code Anemia asthma Cancer Kidney disease Numbness Neuropathy Sciatica Chicken pox Joint implants/screws Transfusions Surgical History Surgery Date(Month/Year) knee surgery, left / complication: blood clot/DVT 2006 colon cancer 2013 portacath placement 2012 Ingrown Toe Nail 2000
== END 2024-12-28 07:40 | disposition home or self-care (01) ==
LOC: HO.MAMMO 07:39
PROVIDERS: PCP Internal Medicine; Visit Provider Internal Medicine
DX: Z13.89 Encounter for screening for other disorder (principal)

== ENCOUNTER 2025-01-14 14:17 | Outpatient (AMB) | payer OTHER, SELFPAY ==
--- NOTE | 2025-01-14 14:26 | MHC.PC.OV ---
Vital Signs 01/14/25 14:27 Height 5 ft 9 in Weight 214 lb 4 oz BMI 31.6 BP 110/70 Blood Pressure Location Lt brachial Position Sitting Pulse 79 Pulse Source Pulse Oximeter Temp 97.3 F Temp Source Temporal Artery Scan Pulse Oximetry (%) 95 Oxygen Delivery Method Room Air Intake Visit Reasons: nose bleeds Intake Note: Patient is here to follow up on nose bleeds. Shipping And Receiving Weigher Required: No Purchasing/Receiving: Not Required per policy Accompanied by: Self / Same As Patient Allergies shrimp [SHRIMP] Allergy (Severe, Verified 01/14/25 14:27) Anaphylaxis latex [LATEX] Allergy (Intermediate, Verified 01/14/25 14:27) RASH Penicillins Allergy (Intermediate, Verified 01/14/25 14:27) Itching Sulfa (Sulfonamide Antibiotics) [SULFA (SULFONAMIDE ANTIBIOTICS)] Allergy (Intermediate, Verified 01/14/25 14:27) HIVES levofloxacin [From LEVAQUIN] Adverse Reaction (Severe, Verified 01/14/25 14:27) AGITATION morphine [MORPHINE] Adverse Reaction (Severe, Verified 01/14/25 14:27) HEADACHES adhesives Allergy (Intermediate, Uncoded 01/14/25 14:27) rash Medication List - Last Reconciled 01/14/25 by Lala Gray PA-C albuterol sulfate 90 mcg/actuation 1 inh inhalation QID PRN azelastine 0.05% 1 drp ophthalmic (eye) BID PRN bupropion HCl XL 300 mg PO QAM 90 days CPAP (CPAP Machine/Device) As directed fexofenadine (Keeley Allergy) 180 mg PO DAILY levonorgestrel (Mirena) 20 mcg intrauterine DIRECTED omeprazole 20 mg PO DAILY oxymetazoline 0.05% (Afrin (oxymetazoline)) 2 sprays intranasal Q12H PRN rivaroxaban (Xarelto) 10 mg PO DAILY PRN triamcinolone acetonide 1 spray intranasal DAILY Tobacco use date assessed: 01/14/25 Dental Screening Dental Screen Date: 11/21/24 HPI nose bleeds HPI Details 49-year-old female with past medical history of asthma, GERD, history of DVT, depression, obstructive sleep apnea last seen 11/[address] Mcmillan coming in for acute problem. Patient tells us today she had several nosebleeds last week that lasted several minutes but resolved with direct pressure. She uses Afrin frequently for sinus concerns and antihistamines for seasonal allergies. She is not on any blood thinners at this time but does use ibuprofen regularly and has no history of bleeding disorder. [facility] Medical History Physical exam Sinus infection Ovarian cyst GERD (gastroesophageal reflux disease) IUD (intrauterine device) in place History of blood transfusion Medullary sponge kidney Asthma History of seizure Seasonal allergies RADHA (obstructive sleep apnea) History of chemotherapy (~2012) Hx of radiation therapy (~2012) Recent bereavement Left arm pain Neck pain Retrognathia Vaginal discharge Rash Subconjunctival hemorrhage of left eye Upper respiratory tract infection Hemorrhoids with complication Myalgia Right wrist pain Right shoulder pain Screen for STD (sexually transmitted disease) Retained tampon COVID-19 Conjunctivitis Well woman exam Breast pain Shortness of breath PVC (premature ventricular contraction) PAC (premature atrial contraction) Colon cancer (~2012) DVT (deep venous thrombosis) Heart palpitations Shortness of breath Surgical History History of kidney surgery Hx of colonoscopy History of esophagogastroduodenoscopy (EGD) H/O knee surgery History of colon surgery Family History Mother High blood pressure COPD (chronic obstructive pulmonary disease) History of four vessel coronary artery bypass graft Mental health disorder Father High blood pressure Cancer Maternal Grandfather Colon cancer Paternal Aunt Colon cancer Social History Housing: House Are you a primary in home caregiver to a significant other at home: No Do you presently have visiting nurse or other home services: No Alcohol intake: current Alcohol intake frequency: holidays/special occasions only Alcohol type: wine Patient Tobacco Use Status: Former Tobacco user Tobacco use type: Smokeless Tobacco e-Cigarette/Vaping Use: Currently Using Frequency of e-Cigarette/Vaping Use: Ocassional Second Hand Smoke Exposure: Yes service: No Current occupational status: employed 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 Phuc Carter, Carlita Mercado, Joseph Christianson and colleagues, with an educational oumar from [employer]. Review of Systems Const Denies body aches, Denies chills, Denies fever(s), Denies headache(s) and Denies poor appetite Eyes Reports no additional complaints ENT Details: Nosebleeds Denies dizziness and Denies headache(s) Card Denies chest pain and Denies dyspnea Resp Denies cough and Denies dyspnea Musc Reports no additional complaints and Denies abnormal gait Neuro Denies abnormal gait, Denies dizziness and Denies headache(s) Psych Reports no additional complaints Physical exam (Primary Care) Vital Signs: Last Vital Signs Temp 97.3 F 01/14/25 14:27 Pulse 79 01/14/25 14:27 BP 110/70 01/14/25 14:27 Pulse Ox 95 01/14/25 14:27 Oxygen Delivery Method Room Air 01/14/25 14:27 BMI result Body Mass Index 31.6 Tobacco/Smoking Status: Tobacco use Status Tobacco use date assessed 01/14/25 01/14/25 14:41 Patient Tobacco Use Status Former Tobacco user 01/14/25 14:41 Tobacco use type Smokeless Tobacco 01/14/25 14:41 e-Cigarette/Vaping Use Currently Using 01/14/25 14:41 Thrive Assessment: Date of Thrive Assessment Date Thrive assessed 11/21/24 01/14/25 14:41 Const General: cooperative, healthy appearing, comfortable and no acute distress Orientation/consciousness: patient oriented x3 HENMT Head: Yes normocephalic Ears: hearing grossly normal bilaterally General nose exam: Abnormal mucous membranes and turbinates present erythematous on the left and no epistaxis Eyes General: appearance normal, both eyes and all related structures Conjunctivae: conjunctivae normal Neck Neck: Yes full ROM and Yes no lymphadenopathy Resp Effort & Inspection: normal respiratory effort Auscultation: clear to auscultation bilaterally, no crackles, no rales, no rhonchi and no wheezes Cardio Rate: regular rate Rhythm: regular rhythm Skin General skin exam: no rashes or lesions noted Neuro General: patient oriented x3 Gait exam (Neuro): Normal gait present Extrem General: Yes normal to inspection, Yes full ROM and No edema Psych Affect: normal affect Attitude: cooperative Insight: Good insight present (Psych) Judgement: Good judgement present (Psych) Coding Level of Care Code Est Pt Level 3 (17630) Diagnoses Bleeding nose R04.0 Assessment & Plan Assessment & Plan (1) Bleeding nose: Code(s): R04.0 - Epistaxis Category: Medical Plan: On exam I do not identify any prominent blood vessels or source of a bleed. However, left Quiñones erythematous with dry flaky skin. Advised patient to use saline nasal spray twice daily to help lubricate the nares. Avoid using Afrin and ibuprofen for 3-4 days and avoid blowing the nose during this time as well. If epistaxis recurs recommend going to urgent care or ear nose and throat provider for cautery. Plan This note was constructed using voice recognition software. While every effort has been made to ensure accuracy and teacher of family and consumer science, still areas may have been included sometimes these areas may affect the content or meeting of the given symptoms. Total time spent caring for the patient today was 20 minutes. This includes time spent before the visit reviewing the chart, time spent during the visit, and time spent after the visit and documentation.
[2025-01-14 14:27] VITALS: BP 110/70; PULSE 79; TEMP 36.3; O2SAT 95; BMI 31.6
--- OUTSIDE RECORDS SUMMARY | 2025-01-14 16:20 | XMS_ITS | Data Portability ---
Author Organization [facility] [address] Address [address] [place] [id number] Care Team Providers Care Conveyor Line Battery Charger Name Role Phone MICHAEL INTERIANO Primary Care Provider Assessment No assessment recorded. Plan of Treatment Reminders Order Date Submit Date Provider Last Modified By Organization Details Last Modified Time Details Appointments None recorded. Lab None recorded. Referral None recorded. Procedures None recorded. Surgeries None recorded. Imaging None recorded. Medication Orders clobetasol 0.05 % topical ointment 2023 024 [facility] #[id number], [address] [place], [address], 16:28:28 Patient TargetsNo targets recorded. Patient Instructions Encounter Date Encounter Id Patient Instructions Last Modified By Organization Details Last Modified Time 10/18/2024 [id number] dermatitis: care instructions [email or web address] Not available 10/18/2024 16:28:26 Reason for Referral None Reported. Problems Name Problem SNOMED Code Status Onset Date Resolution Date Notes Provider Name and Address Organization Details Recorded Time Depressiv e disorder 04425594 Active CONRAD Bullock [facility] 4 16:18:56 Malignant tumor of colon 630935775 Completed 202310/18/2024 Removal Reason: surgery CONRAD Keane [facility] [place], [address] , CONRAD Dumont [facility] 16:27:43 Problem Notes None recorded. Medical Equipment None Reported. Allergies Allergen ID Allergen Name Allergen Category Reaction Reaction Severity Criticality Documentation Date Start Date Code Code System Note Provider Name and Address Organization Details Recorded Time 3903575 Substance with sulfonami de structure and antibacte rial mechanism of action (substanc e) medicatio n hives Not available Not available 10/18/2024 83494 8003 SNOMED Ольга Olmedo null, [place] - [facility] 4 16:16:05 3431759 Augmentin medicatio n abdominal pain Not available Not available 10/18/2024 46580 2 RxNorm Ольга Olmedo null, PA - [...] Updated DateTime 4 175.26 cm 29.5 kg/m2 05714.4 7 g 98 [degF] 18 /min 77 /min 98 % 98 % 138 mm[Hg] 92 mm[Hg] Ольга Olmedo PA - [facility] 16:22:06 Social History Question Answer Notes LastModified by Organizat ion Details LastModified Time Tobacco Smoking Status Current Every Day Smoker vape CONRAD Bullock - [facility] 10/18/2024 16:20:08 What Is Your Level Of Alcohol Consumption? Occasional [email or web address] Information not available 10/18/2024 How Many Times Per Week Do You Consume Alcohol? 3-4 Times Per Week Information not available 10/18/2024 Have You Had A Flu Shot This Season? Yes [email or web address] Information not available 10/18/2024 Do You Use Any Illicit Or Recreational Drugs? No [email or web address] Information not available 10/18/2024 Have You Recently Traveled Abroad? No [email or web address] Information not available 10/18/2024 Sex: Unknown Functional Status None recorded. Mental Status None recorded. Family History Relationship Description Onset Age of this Age Resolved Age Notes LastModified by Organization Details LastModified Time Father No current problems or disability [email or web address] Not available 10/18 16:19:00 Mother No current problems or disability Not available 10/18 16:19:00 Medical History No medical history recorded. Gynecological HistoryNo gynecological history recorded. Obstetrics History GPAL:G 0 P 0 0 0 0 Past Encounters Encounter ID Performer Location Encounter Start Date Encounter Closed Date Diagnosis/Indication Diagnosis SNOMED-CT Code Diagnosis ICD10 Code Diagnosis Note [id number] [address] [facility] [place] [address] 10/10/2020 16:22:23 10/10/2020 18:18:23 [id number] CONRAD Keane [address] [place] [address] 10/18/2024 16:09:58 10/18/2024 16:29:23 Contact dermatitis 75817044 L25.9 Based on your presentati on and [...] Name 10/18/2024 1 [employer]) [id number] Katlyn Shaikh [id number] 782 Katlyn Shaikh Notes Date Note Type Note Provider Name and Address Organization Details Recorded Time 10/18/2024 text/html 49 y/o female here with several red, irritated spots on her belly button, upper back, and L leg. Has happened in the past, wants to make sure it isn't ringworm CONRAD Keane [address] [place], [address], [place] - [facility] 10/18/2024 16:31:25 OBGyn Episode No OBEpisode recorded.
--- OUTSIDE RECORDS SUMMARY | 2025-01-14 16:20 | XMS_ITS | Patient Health Record ---
[facility] Address [address] [place] [address] Care Team Providers Care Weld Lay Out Worker Name Role Phone Holly SMITH, Ailyn Primary Care Provider Unavail able Migdalia Luis Unavailable [phone] Allergies Allergen (clinical drug ingredient) Drug/Non Drug [...] Coverage End Date Blue Benefits [address] [address] [place] [address] [id number] Katlyn Shaikh Self - patient is the insured Medical (General) History Medical History History ICD Code Anemia asthma Cancer Kidney disease Numbness Neuropathy Sciatica Chicken pox Joint implants/screws Transfusions Surgical History Surgery Date(Month/Year) knee surgery, left / complication: blood clot/DVT 2006 colon cancer 2013 portacath placement 2012 Ingrown Toe Nail 2000
== END 2025-01-14 15:11 | disposition home or self-care (01) ==
PROVIDERS: PCP Internal Medicine
DX: R04.0 Epistaxis (principal)

== ENCOUNTER 2025-01-22 11:20 | Outpatient (REF) | payer OTHER, SELFPAY ==
--- NOTE | ~2025-01-22 | MM_ITS ---
EXAMINATION: MM DIAGNOSTIC DIGITAL BREAST TOMOSYNTHESIS, BILATERAL Limited left breast ultrasound. CLINICAL INFORMATION: Left breast pain in the upper outer quadrant. COMPARISON: Mammography: Comparison is made with relevant prior exams. TECHNIQUE: Digital breast mammography with tomosynthesis is performed in both the craniocaudal and mediolateral oblique views along with computer-aided detection (CAD). FINDINGS: The breasts are heterogeneously dense, which may obscure small masses (ACR BI-RADS breast composition Category c). Left: Triangular marker in the upper outer breast without underlying abnormality at the site of pain. No suspicious masses calcifications or other abnormal findings. Targeted color Doppler ultrasound scanning in the area the patient's pain from 1-6 o'clock demonstrates normal fibronodular breast tissue. There is no sonographic abnormality. Right: There are no significant masses, abnormal calcifications, or other abnormalities. Results are provided to the patient at time of visit by the technologist. MM/MM tomosynthesis diagnostic BI IMPRESSION: Right: Negative. Left: No mammographic or sonographic abnormality to account for the patient's left breast pain. Recommend clinical evaluation and follow-up. ASSESSMENT: BI-RADS BI-RADS 1 - Negative RECOMMENDATION: 1 year F/U This patient's information was entered into a reminder system with a target due date for their next mammogram. Electronically signed by: Alethea Palacio DO 01/22/2025 12:45 PM EDT
== END 2025-01-22 11:21 | disposition home or self-care (01) ==
LOC: HO.MAMMO 11:20
PROVIDERS: PCP Internal Medicine; Visit Provider Physician Assistant
DX: N63.25 Unspecified lump in the left breast, overlapping quadrants (principal)
CPT/HCPCS: 76642; 77062; 77066

== ENCOUNTER → 2025-01-22 12:00 | Outpatient (BNV) | payer OTHER, SELFPAY | PROVIDERS: PCP Internal Medicine; Visit Provider Internal Medicine | DX: N64.4 Mastodynia (principal) | CPT/HCPCS: 76642; 77062; 77066 ==

== ENCOUNTER 2025-02-05 09:07 | Outpatient (REF) | payer OTHER, SELFPAY ==
--- OUTSIDE RECORDS SUMMARY | 2025-02-05 10:04 | XMS_ITS | Patient Health Record ---
Author Organization [facility] Address [address] [place] [address] Care Team Providers Care Oil And Gas Lease Pumper Name Role Phone Holly SMITH, Ailyn Primary Care Provider Unavail able Migdalia Luis Unavailable [phone] Allergies Allergen (clinical drug ingredient) Drug/Non Drug [...] Coverage End Date Blue Benefits [address] [address] [place] [address] [id number] Katlyn Shaikh Self - patient is the insured Medical (General) History Medical History History ICD Code Anemia asthma Cancer Kidney disease Numbness Neuropathy Sciatica Chicken pox Joint implants/screws Transfusions Surgical History Surgery Date(Month/Year) knee surgery, left / complication: blood clot/DVT 2006 colon cancer 2013 portacath placement 2012 Ingrown Toe Nail 2000
--- OUTSIDE RECORDS SUMMARY | 2025-02-05 10:04 | XMS_ITS | Data Portability ---
Author Organization [facility] [address] Address [address] [place] [address] Care Team Providers Care High School Assistant Football Coach Name Role Phone MICHAEL INTERIANO Primary Care Provider [phone] Assessment No assessment recorded. Plan of Treatment Reminders Order Date Submit Date Provider Last Modified By Organization Details Last Modified Time Details Appointments None recorded. Lab None recorded. Referral None recorded. Procedures None recorded. Surgeries None recorded. Imaging None recorded. Medication Orders clobetasol 0.05 % topical ointment 2023 024 [facility] #[id number], [address] [place], [address], 16:28:28 Patient TargetsNo targets recorded. Patient Instructions Encounter Date Encounter Id Patient Instructions Last Modified By Organization Details Last Modified Time 10/18/2024 [id number] dermatitis: care instructions [email or web address] Not available 10/18/2024 16:28:26 Reason for Referral None Reported. Problems Name Problem SNOMED Code Status Onset Date Resolution Date Notes Provider Name and Address Organization Details Recorded Time Depressiv e disorder 19693980 Active CONRAD Bullock [facility] 4 16:18:56 Malignant tumor of colon 553314989 Completed 202310/18/2024 Removal Reason: surgery CONRAD Keane [facility] [place], [address] , CONRAD Dumont [facility] 16:27:43 Problem Notes None recorded. Medical Equipment None Reported. Allergies Allergen ID Allergen Name Allergen Category Reaction Reaction Severity Criticality Documentation Date Start Date Code Code System Note Provider Name and Address Organization Details Recorded Time 1268459 Substance with sulfonami de structure and antibacte rial mechanism of action (substanc e) medicatio n hives Not available Not available 10/18/2024 21825 8003 SNOMED Ольга Olmedo null, [place] - [facility] 4 16:16:05 2427986 Augmentin medicatio n abdominal pain Not available Not available 10/18/2024 42805 2 RxNorm Ольга Olmedo null, PA - [...] Updated DateTime 4 175.26 cm 29.5 kg/m2 18869.4 7 g 98 [degF] 18 /min 77 /min 98 % 98 % 138 mm[Hg] 92 mm[Hg] Ольга Olmedo PA - [facility] 16:22:06 Social History Question Answer Notes LastModified by Organizat ion Details LastModified Time Tobacco Smoking Status Current Every Day Smoker vape CONRAD Bullock - [facility] 10/18/2024 16:20:08 What Is Your Level Of Alcohol Consumption? Occasional [email or web address] Information not available 10/18/2024 How Many Times Per Week Do You Consume Alcohol? 3-4 Times Per Week [email or web address] Information not available 10/18/2024 Have You Had A Flu Shot This Season? Yes [email or web address] Information not available 10/18/2024 Do You Use Any Illicit Or Recreational Drugs? No [email or web address] Information not available 10/18/2024 Have You Recently Traveled Abroad? No [email or web address] Information not available 10/18/2024 Sex: Unknown Functional Status None recorded. Mental Status None recorded. Family History Relationship Description Onset Age of this Age Resolved Age Notes LastModified by Organization Details LastModified Time Father No current problems or disability [email or web address] Not available 10/18 16:19:00 Mother No current problems or disability [email or web address] Not available 10/18 16:19:00 Medical History No medical history recorded. Gynecological HistoryNo gynecological history recorded. Obstetrics History GPAL:G 0 P 0 0 0 0 Past Encounters Encounter ID Performer Location Encounter Start Date Encounter Closed Date Diagnosis/Indication Diagnosis SNOMED-CT Code Diagnosis ICD10 Code Diagnosis Note [id number] [address] [facility] [place] [address] 10/10/2020 16:22:23 10/10/2020 18:18:23 [id number] CONRAD Keane [address] [place] [address] 10/18/2024 16:09:58 10/18/2024 16:29:23 Contact dermatitis 73862288 L25.9 Based on your presentati on and [...] [employer] [place]) [id number] Katlyn Shaikh [id number] 782 Katlyn Shaikh Notes Date Note Type Note Provider Name and Address Organization Details Recorded Time 10/18/2024 text/html 49 y/o female here with several red, irritated spots on her belly button, upper back, and L leg. Has happened in the past, wants to make sure it isn't ringworm CONRAD Keane [address] [place], [address], [place] - [facility] 10/18/2024 16:31:25 OBGyn Episode No OBEpisode recorded.
[2025-02-05] MEDS: gadobutroL 10 ML VIAL IVPUSH (10:29)
== END 2025-02-05 09:08 | disposition home or self-care (01) ==
LOC: HO.MRI 09:07
PROVIDERS: PCP Physician Assistant; Visit Provider Physician Assistant
DX: N63.20 Unspecified lump in the left breast, unspecified quadrant (principal)
CPT/HCPCS: 77049; A9585

== ENCOUNTER → 2025-02-05 09:46 | Outpatient (BNV) | payer OTHER, SELFPAY | PROVIDERS: PCP Physician Assistant; Visit Provider Internal Medicine | DX: N63.12 Unspecified lump in the right breast, upper inner quadrant (principal) | CPT/HCPCS: 77049 ==

== ENCOUNTER 2025-02-13 12:24 | Outpatient (REF) | payer OTHER, SELFPAY ==
--- NOTE | ~2025-02-13 | US_ITS ---
EXAMINATION: US DIAGNOSTIC ULTRASOUND BREAST, RIGHT CLINICAL INFORMATION: [MRI directed ultrasound to evaluate a 7 mm enhancing area in the right inner breast.. Patient has a strong family history of breast cancer. COMPARISON: Comparison is made with relevant prior imaging. TECHNIQUE: Ultrasound of the breast is performed with real-time posada scale imaging and color Doppler. FINDINGS: Targeted color Doppler ultrasound scanning in the medial right breast from 1-5 o'clock demonstrates a hypoechoic oval circumscribed solid mass versus complicated cyst at 3:00 4 cm from nipple measuring 6 x 6 x 3 mm. There is no internal vascular flow. This is a questionable correlate for the enhancing oval area seen on MRI. Results are discussed with the patient at time of visit. US/US breast RT limited mamm only IMPRESSION: Solid mass versus complicated cyst in the right breast at 3:00 4 7 m from the nipple. Patient prefers ultrasound-guided core needle aspiration/biopsy at this time for confirmation. The findings and recommendations were discussed with the patient the procedure will be scheduled. Recommend six-month follow-up MRI for further evaluation of enhancing area medial right breast. Follow-up MRI needs to be ordered by the patient's providing clinician. ASSESSMENT: BI-RADS 4: Suspicious RECOMMENDATION: Biopsy. This patient's information was entered into a reminder system with a target due date for their next mammogram. Electronically signed by: Alethea Palacio DO 02/13/2025 01:11 PM EDT
--- OUTSIDE RECORDS SUMMARY | 2025-02-13 14:20 | XMS_ITS | Data Portability ---
Author Organization [facility] Address [address] [place] [address] Care Team Providers Care Edge Burnisher Uppers Name Role Phone MICHAEL INTERIANO Primary Care Provider Assessment No assessment recorded. Plan of Treatment Reminders Order Date Submit Date Provider Last Modified By Organization Details Last Modified Time Details Appointments None recorded. Lab None recorded. Referral None recorded. Procedures None recorded. Surgeries None recorded. Imaging None recorded. Medication Orders clobetasol 0.05 % topical ointment 2023 024 [facility]/Pharmacy #[id number], [address] [place], [address], 16:28:28 Patient TargetsNo targets recorded. Patient Instructions Encounter Date Encounter Id Patient Instructions Last Modified By Organization Details Last Modified Time 10/18/2024 [id number] dermatitis: care instructions [email or web address] Not available 10/18/2024 16:28:26 Reason for Referral None Reported. Problems Name Problem SNOMED Code Status Onset Date Resolution Date Notes Provider Name and Address Organization Details Recorded Time Depressiv e disorder 51624876 Active CONRAD Bullock [facility] 4 16:18:56 Malignant tumor of colon 808233924 Completed 202310/18/2024 Removal Reason: surgery CONRAD Keane [facility] [place], [address] , CONRAD Dumont [facility] 16:27:43 Problem Notes None recorded. Medical Equipment None Reported. Allergies Allergen ID Allergen Name Allergen Category Reaction Reaction Severity Criticality Documentation Date Start Date Code Code System Note Provider Name and Address Organization Details Recorded Time 9275568 Substance with sulfonami de structure and antibacte rial mechanism of action (substanc e) medicatio n hives Not available Not available 10/18/2024 63874 8003 SNOMED Ольга Olmedo null, [place] - [facility] 4 16:16:05 3936117 Augmentin medicatio n abdominal pain Not available Not available 10/18/2024 46503 2 RxNorm Ольга Olmedo null, PA - [...] Updated DateTime 4 175.26 cm 29.5 kg/m2 09099.4 7 g 98 [degF] 18 /min 77 /min 98 % 98 % 138 mm[Hg] 92 mm[Hg] Ольга Olmedo PA - [facility] 16:22:06 Social History Question Answer Notes LastModified by Organizat ion Details LastModified Time Tobacco Smoking Status Current Every Day Smoker vape CONRAD Bullock - [facility] 10/18/2024 16:20:08 What Is Your Level Of Alcohol Consumption? Occasional [email or web address] Information not available 10/18/2024 How Many Times Per Week Do You Consume Alcohol? 3-4 Times Per Week Information not available 10/18/2024 Have You Had A Flu Shot This Season? Yes [email or web address] Information not available 10/18/2024 Do You Use Any Illicit Or Recreational Drugs? No Information not available 10/18/2024 Have You Recently Traveled Abroad? No [email or web address] Information not available 10/18/2024 Sex: Unknown Functional Status None recorded. Mental Status None recorded. Family History Relationship Description Onset Age of this Age Resolved Age Notes LastModified by Organization Details LastModified Time Father No current problems or disability [email or web address] Not available 10/18 16:19:00 Mother No current problems or disability [email or web address] Not available 10/18 16:19:00 Medical History No medical history recorded. Gynecological HistoryNo gynecological history recorded. Obstetrics History GPAL:G 0 P 0 0 0 0 Past Encounters Encounter ID Performer Location Encounter Start Date Encounter Closed Date Diagnosis/Indication Diagnosis SNOMED-CT Code Diagnosis ICD10 Code Diagnosis Note [id number] [address] [place] [address] 10/10/2020 16:22:23 10/10/2020 18:18:23 [id number] CONRAD Keane [address] [place] [address] 10/18/2024 16:09:58 10/18/2024 16:29:23 Contact dermatitis [id number] L25.9 Based on your presentati on and [...] Name 10/18/2024 1 [employer] [place] ([facility]) [id number] Katlyn Shaikh [id number] Katlyn Shaikh Notes Date Note Type Note Provider Name and Address Organization Details Recorded Time 10/18/2024 text/html 49 y/o female here with several red, irritated spots on her belly button, upper back, and L leg. Has happened in the past, wants to make sure it isn't ringworm CONRAD Keane [address] [place], [address], [place] - [facility] 10/18/2024 16:31:25 OBGyn Episode No OBEpisode recorded.
--- OUTSIDE RECORDS SUMMARY | 2025-02-13 14:20 | XMS_ITS | Patient Health Record ---
[facility] Address [address] [place] [address] Care Team Providers Care Hand Deicer Element Winder Name Role Phone Holly SMITH, Ailyn Primary Care Provider Unavail able Migdalia Luis Unavailable [phone] Allergies Allergen (clinical drug ingredient) Drug/Non Drug [...] Coverage End Date Blue Benefits [address] [address] [place] [address] [id number] Katlyn Shaikh Self - patient is the insured Medical (General) History Medical History History ICD Code Anemia asthma Cancer Kidney disease Numbness Neuropathy Sciatica Chicken pox Joint implants/screws Transfusions Surgical History Surgery Date(Month/Year) knee surgery, left / complication: blood clot/DVT 2006 colon cancer 2013 portacath placement 2012 Ingrown Toe Nail 2000
== END 2025-02-13 12:25 | disposition home or self-care (01) ==
LOC: HO.MAMMO 12:24
PROVIDERS: PCP Physician Assistant; Visit Provider Physician Assistant
DX: N63.15 Unspecified lump in the right breast, overlapping quadrants (principal)
CPT/HCPCS: 76642

== ENCOUNTER → 2025-02-13 12:30 | Outpatient (BNV) | payer OTHER, SELFPAY | PROVIDERS: PCP Physician Assistant; Visit Provider Internal Medicine | DX: N63.15 Unspecified lump in the right breast, overlapping quadrants (principal); Z80.3 Family history of malignant neoplasm of breast | CPT/HCPCS: 76642 ==

== ENCOUNTER 2025-03-05 08:14 | Outpatient (AMB) | payer OTHER, SELFPAY ==
--- NOTE | 2025-03-05 08:27 | MHC.OFFVIS ---
Vital Signs 03/05/25 08:35 Height 5 ft 9 in Weight 214 lb BMI 31.6 BP 134/73 Blood Pressure Location Rt brachial Position Sitting Pulse 64 Intake Visit Reasons: us guided bx, rt 3 o'clock mass Intake Note: Patient referred for US guided bx on Rt breast 3o'clock for mass. Patient c/o: painful area on superior Rt br. Recently burning pain on Lt axilla. US Rt br: 02-13-2025 Bilateral br MRI: 02-05-2025 Ordnance Technician Required: No Accompanied by: Self / Same As Patient Allergies shrimp [SHRIMP] Allergy (Severe, Verified 03/05/25 08:32) Anaphylaxis latex [LATEX] Allergy (Intermediate, Verified 03/05/25 08:32) RASH Penicillins Allergy (Intermediate, Verified 03/05/25 08:32) Itching Sulfa (Sulfonamide Antibiotics) [SULFA (SULFONAMIDE ANTIBIOTICS)] Allergy (Intermediate, Verified 03/05/25 08:32) HIVES levofloxacin [From LEVAQUIN] Adverse Reaction (Severe, Verified 03/05/25 08:32) AGITATION morphine [MORPHINE] Adverse Reaction (Severe, Verified 03/05/25 08:32) HEADACHES adhesives Allergy (Intermediate, Uncoded 03/05/25 08:32) rash Medication List - Last Reconciled 03/05/25 by Ben Dooley MD albuterol sulfate 90 mcg/actuation 1 inh inhalation QID PRN azelastine 0.05% 1 drp ophthalmic (eye) BID PRN bupropion HCl XL 300 mg PO QAM 90 days CPAP (CPAP Machine/Device) As directed fexofenadine (Keeley Allergy) 180 mg PO DAILY levonorgestrel (Mirena) 20 mcg intrauterine DIRECTED omeprazole 20 mg PO DAILY oxymetazoline 0.05% (Afrin (oxymetazoline)) 2 sprays intranasal Q12H PRN rivaroxaban (Xarelto) 10 mg PO DAILY PRN triamcinolone acetonide 1 spray intranasal DAILY HPI HPI us guided bx, rt 3 o'clock mass: Details: 49 year old female referred for a right breast mass seen on imaging studies. She had a diagnostic mammogram last month because of left breast pain after she says that this was accidentally hit and she had some bruising. That mammogram showed normal enhancing area in the right breast so she was sent for an MRI for further imaging. This finding was seen on MRI as well so she was recommended for an ultrasound biopsy She denies any palpable mass in the right breast She had menarche at age of 14. She was never . She says she feels she is perimenopausal. She has been on Mirena however for 15 years so her menstrual periods are not really regular. She describes having a second-degree relative with breast cancer mother side and a 2nd cousin on the he was side also with breast cancer She had colon cancer at age of 36. She says she had genetic testing at that time specific for colon cancer and this was negative [facility] Medical History (Updated 03/05/25 @ 08:54 by Ben Dooley MD) Family history of breast cancer Physical exam Sinus infection Ovarian cyst GERD (gastroesophageal reflux disease) IUD (intrauterine device) in place History of blood transfusion Medullary sponge kidney Asthma History of seizure Seasonal allergies RADHA (obstructive sleep apnea) History of chemotherapy (~2012) Hx of radiation therapy (~2012) Recent bereavement Left arm pain Neck pain Retrognathia Vaginal discharge Rash Subconjunctival hemorrhage of left eye Upper respiratory tract infection Hemorrhoids with complication Myalgia Right wrist pain Right shoulder pain Screen for STD (sexually transmitted disease) Retained tampon COVID-19 Conjunctivitis Well woman exam Breast pain Shortness of breath PVC (premature ventricular contraction) PAC (premature atrial contraction) Colon cancer (~2012) DVT (deep venous thrombosis) Heart palpitations Shortness of breath Surgical History History of kidney surgery Hx of colonoscopy History of esophagogastroduodenoscopy (EGD) H/O knee surgery History of colon surgery Family History Mother High blood pressure COPD (chronic obstructive pulmonary disease) History of four vessel coronary artery bypass graft Mental health disorder Father High blood pressure Cancer Maternal Grandfather Colon cancer Paternal Aunt Colon cancer Social History Housing: House Are you a primary healthcare consulting manager to a significant other at home: No Do you presently have visiting nurse or other home services: No Alcohol intake: current Alcohol intake frequency: holidays/special occasions only Alcohol type: wine Patient Tobacco Use Status: Former Tobacco user Tobacco use type: Smokeless Tobacco e-Cigarette/Vaping Use: Currently Using Second Hand Smoke Exposure: Yes service: No Current occupational status: employed 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 Current occupational exposures/hazards: No Cognitive needs: No Hearing needs: No Vision needs: No Female Reproductive History Menstrual Age of Menarche: 10 Review of Systems Const Denies chills and Denies fever(s) Card Denies chest pain, Denies dyspnea and Denies dyspnea on exertion Resp Denies cough, Denies dyspnea and Denies dyspnea on exertion GI Denies hematochezia and Denies change in bowel habits Denies hematuria Musc Denies back pain and Denies limited range of motion Neuro Denies focal weakness and Denies convulsions Psych Denies depression and Denies mood swings Physical Exam Vital Signs: Last Vital Signs Pulse 64 03/05/25 08:35 BP 134/73 03/05/25 08:35 BMI result Body Mass Index 31.6 Const General: comfortable and no acute distress Orientation/consciousness: patient oriented x3 Neck Neck: Yes no lymphadenopathy Chest Other: No palpable breast masses, no nipple or skin changes, no axillary lymphadenopathy Resp Auscultation: clear to auscultation bilaterally Cardio Rhythm: regular rhythm GI Palpation (GI): Soft to palpation, nontender and no guarding Neuro General: patient oriented x3 Assessment & Plan Assessment & Plan (1) Breast mass, right: Code(s): N63.10 - Unspecified lump in the right breast, unspecified quadrant Category: Medical Plan: She has this hypoechoic, oval, circumscribed solid mass versus complicated cyst at the 3 o'clock position on the right breast, 6 x 6 x 3 mm in size seen on her breast imaging studies. An ultrasound biopsy has been recommended I had a long discussion with her about the technique of ultrasound biopsy. I will see her again next week to discuss the path report. (2) Family history of breast cancer: Code(s): Z80.3 - Family history of malignant neoplasm of breast Category: Medical Plan: She describes to 2nd degree relatives with breast cancer before the age of 60. She also has a personal history of colon cancer at the age of 36. I therefore I explained to her that she may qualify for genetic testing with [facility]. I explained to her the implications of this test to herself and her family. She says she is interested. We will therefore arrange for her to have genetic counseling genetic testing here in the office. Coding Level of Care Code New Pt Level 3 (27615) Diagnoses Breast mass, right N63.10 Family history of breast cancer Z80.3
--- OUTSIDE RECORDS SUMMARY | 2025-03-05 08:32 | XMS_ITS | Data Portability ---
Author Organization [facility] [address] Address [address] [place] [address] Care Team Providers Care Thread Roller Name Role Phone MICHAEL INTERIANO Primary Care Provider [phone] Assessment No assessment recorded. Plan of Treatment Reminders Order Date Submit Date Provider Last Modified By Organization Details Last Modified Time Details Appointments None recorded. Lab None recorded. Referral None recorded. Procedures None recorded. Surgeries None recorded. Imaging None recorded. Medication Orders clobetasol 0.05 % topical ointment 2023 024 [facility]/Pharmacy #[id number], [address] [place], [address], 16:28:28 Patient TargetsNo targets recorded. Patient Instructions Encounter Date Encounter Id Patient Instructions Last Modified By Organization Details Last Modified Time 10/18/2024 [id number] dermatitis: care instructions [email or web address] Not available 10/18/2024 16:28:26 Reason for Referral None Reported. Problems Name Problem SNOMED Code Status Onset Date Resolution Date Notes Provider Name and Address Organization Details Recorded Time Depressiv e disorder 96101498 Active CONRAD Bullock [facility] 4 16:18:56 Malignant tumor of colon 619284226 Completed 202310/18/2024 Removal Reason: surgery CONRAD Keane [facility] [place], [address] , CONRAD Dumont [facility] 16:27:43 Problem Notes None recorded. Medical Equipment None Reported. Allergies Allergen ID Allergen Name Allergen Category Reaction Reaction Severity Criticality Documentation Date Start Date Code Code System Note Provider Name and Address Organization Details Recorded Time 0533511 Substance with sulfonami de structure and antibacte rial mechanism of action (substanc e) medicatio n hives Not available Not available 10/18/2024 81147 8003 SNOMED Ольга Olmedo null, [place] - [facility] 4 16:16:05 5962942 Augmentin medicatio n abdominal pain Not available Not available 10/18/2024 88045 2 RxNorm Ольга Olmedo null, PA - [...] Updated DateTime 4 175.26 cm 29.5 kg/m2 57658.4 7 g 98 [degF] 18 /min 77 /min 98 % 98 % 138 mm[Hg] 92 mm[Hg] Ольга Olmedo PA - [facility] 16:22:06 Social History Question Answer Notes LastModified by Organizat ion Details LastModified Time Tobacco Smoking Status Current Every Day Smoker vape CONRAD Bullock - [facility] 10/18/2024 16:20:08 What Is Your Level Of Alcohol Consumption? Occasional [email or web address] Information not available 10/18/2024 How Many Times Per Week Do You Consume Alcohol? 3-4 Times Per Week Information not available 10/18/2024 Have You Had A Flu Shot This Season? Yes [email or web address] Information not available 10/18/2024 Do You Use Any Illicit Or Recreational Drugs? No [email or web address] Information not available 10/18/2024 Have You Recently Traveled Abroad? No Information not available 10/18/2024 Sex: Unknown Functional Status None recorded. Mental Status None recorded. Family History Relationship Description Onset Age of this Age Resolved Age Notes LastModified by Organization Details LastModified Time Father No current problems or disability [email or web address] Not available 10/18 16:19:00 Mother No current problems or disability [email or web address] Not available 10/18 16:19:00 Medical History No medical history recorded. Gynecological HistoryNo gynecological history recorded. Obstetrics History GPAL:G 0 P 0 0 0 0 Past Encounters Encounter ID Performer Location Encounter Start Date Encounter Closed Date Diagnosis/Indication Diagnosis SNOMED-CT Code Diagnosis ICD10 Code Diagnosis Note [id number] [address] [place] [address] 10/10/2020 16:22:23 10/10/2020 18:18:23 [id number] CONRAD Keane [address] [place] [address] 10/18/2024 16:09:58 10/18/2024 16:29:23 Contact dermatitis 11104542 L25.9 Based on your presentati on and [...] Name 10/18/2024 1 [employer]) [address] Katlyn Shaikh [id number] 782 Katlyn Shaikh Notes Date Note Type Note Provider Name and Address Organization Details Recorded Time 10/18/2024 text/html 49 y/o female here with several red, irritated spots on her belly button, upper back, and L leg. Has happened in the past, wants to make sure it isn't ringworm CONRAD Keane [address] [place], [address], [place] - [facility] 10/18/2024 16:31:25 OBGyn Episode No OBEpisode recorded.
--- OUTSIDE RECORDS SUMMARY | 2025-03-05 08:32 | XMS_ITS | Patient Health Record ---
Author Organization [facility] Address [address] [place] [address] Care Team Providers Care Deputy Clerk Of Superior Court Name Role Phone Holly SMITH, Ailyn Primary Care Provider Unavail able Migdalia Luis Unavailable [phone] Allergies Allergen (clinical drug ingredient) Drug/Non Drug [...] Coverage End Date Blue Benefits [address] [address] [place] [address] [id number] Katlyn Shaikh Self - patient is the insured Medical (General) History Medical History History ICD Code Anemia asthma Cancer Kidney disease Numbness Neuropathy Sciatica Chicken pox Joint implants/screws Transfusions Surgical History Surgery Date(Month/Year) knee surgery, left / complication: blood clot/DVT 2006 colon cancer 2013 portacath placement 2012 Ingrown Toe Nail 2000
[2025-03-05 08:35] VITALS: BP 134/73; PULSE 64; BMI 31.6
== END 2025-03-05 08:54 | disposition home or self-care (01) ==
LOC: HO.HGS 08:15
PROVIDERS: PCP Physician Assistant; Visit Provider Surgery
DX: N63.10 Unspecified lump in the right breast, unspecified quadrant (principal); Z80.3 Family history of malignant neoplasm of breast
CPT/HCPCS: 99213

== ENCOUNTER → 2025-03-05 08:14 | Outpatient (BNVA) | payer OTHER, SELFPAY | PROVIDERS: PCP Physician Assistant; Visit Provider Surgery ==

== ENCOUNTER 2025-03-07 08:53 | Outpatient (REF) | payer OTHER, SELFPAY ==
--- NOTE | ~2025-03-07 | MM_ITS ---
PROCEDURE: ULTRASOUND-GUIDED RIGHT BREAST BIOPSY CLINICAL INFORMATION: Solid mass at 3:00 4 cm from the nipple in the right breast here for ultrasound-guided core needle biopsy question of this is a correlate for the enhancing area on prior MRI therefore 6 month follow-up MRI was recommended for correlation and follow-up. COMPARISON: Priors on PACS. TECHNIQUE: The details of the procedure, as well as the risks, benefits, and alternatives to the procedure were explained to the patient in detail and all of her questions were answered, after which, written informed consent was obtained. PROCEDURE: Prior to the procedure, sonography revealed a solid mass at 3:00 4 cm from the nipple. A time-out was performed, the lesion intended for biopsy was targeted and the skin of the right breast was then prepped and draped in the usual sterile fashion. Using sonographic guidance, sterile technique, and 1% lidocaine without epinephrine for local anesthesia, a total of 6 cores were obtained through the targeted area with a 14-gauge biopsy device. At the completion of tissue sampling, a single butterfly metallic clip was deposited at the biopsy site. An appropriate sample was obtained. The postprocedure 2-view direct digital mammogram reveals satisfactory positioning of the biopsy clip. The patient tolerated the procedure well and, after assuring adequate hemostasis, was discharged in good condition after reviewing postbiopsy breast care instructions. Final pathology results are pending. MM/MM tomosynthesis diagnostic RT IMPRESSION: 1. Uncomplicated sonographically-guided core biopsy of the right breast. The 2-view direct digital postprocedure mammogram reveals satisfactory positioning of the biopsy clip. 2. Final pathology results are pending. A separate report with final recommendations will be issued once these results are made available. 3. As per prior diagnostic report a six-month follow-up MRI is recommended. Electronically signed by: Alethea Palacio DO 03/07/2025 10:53 AM EDT
--- OUTSIDE RECORDS SUMMARY | 2025-03-07 09:18 | XMS_ITS | Data Portability ---
Author Organization [facility] [address] Address [address] [place] [address] Care Team Providers Care Trimmer Sawyer Name Role Phone MICHAEL INTERIANO Primary Care Provider [phone] Assessment No assessment recorded. Plan of Treatment Reminders Order Date Submit Date Provider Last Modified By Organization Details Last Modified Time Details Appointments None recorded. Lab None recorded. Referral None recorded. Procedures None recorded. Surgeries None recorded. Imaging None recorded. Medication Orders clobetasol 0.05 % topical ointment 2023 024 [facility]/Pharmacy #[id number], [address] [place], [address], 16:28:28 Patient TargetsNo targets recorded. Patient Instructions Encounter Date Encounter Id Patient Instructions Last Modified By Organization Details Last Modified Time 10/18/2024 [id number] dermatitis: care instructions [email or web address] Not available 10/18/2024 16:28:26 Reason for Referral None Reported. Problems Name Problem SNOMED Code Status Onset Date Resolution Date Notes Provider Name and Address Organization Details Recorded Time Depressiv e disorder 85620284 Active CONRAD Bullock [facility] 4 16:18:56 Malignant tumor of colon 359713001 Completed 202310/18/2024 Removal Reason: surgery CONRAD Keane [facility] [place], [address] , CONRAD Dumont [facility] 4 16:27:43 Problem Notes None recorded. Medical Equipment None Reported. Allergies Allergen ID Allergen Name Allergen Category Reaction Reaction Severity Criticality Documentation Date Start Date Code Code System Note Provider Name and Address Organization Details Recorded Time 3467796 Substance with sulfonami de structure and antibacte rial mechanism of action (substanc e) medicatio n hives Not available Not available 10/18/2024 55726 8003 SNOMED Ольга Olmedo null, [place] - [facility] 4 16:16:05 3166397 Augmentin medicatio n abdominal pain Not available Not available 10/18/2024 27039 2 RxNorm Ольга Olmedo null, PA - [...] Updated DateTime 4 175.26 cm 29.5 kg/m2 31497.4 7 g 98 [degF] 18 /min 77 /min 98 % 98 % 138 mm[Hg] 92 mm[Hg] Ольга Olmedo PA - [facility] 16:22:06 Social History Question Answer Notes LastModified by Organizat ion Details LastModified Time Tobacco Smoking Status Current Every Day Smoker vape CONRAD Bullock - [facility] 10/18/2024 16:20:08 What Is Your Level Of Alcohol Consumption? Occasional Information not available 10/18/2024 How Many Times Per Week Do You Consume Alcohol? 3-4 Times Per Week [email or web address] Information not available 10/18/2024 Have You Had A Flu Shot This Season? Yes [email or web address] Information not available 10/18/2024 Do You Use Any Illicit Or Recreational Drugs? No [email or web address] Information not available 10/18/2024 Have You Recently Traveled Abroad? No [email or web address] Information not available 10/18/2024 Sex: Unknown Functional Status None recorded. Mental Status None recorded. Family History Relationship Description Onset Age of this Age Resolved Age Notes LastModified by Organization Details LastModified Time Father No current problems or disability [email or web address] Not available 10/18 16:19:00 Mother No current problems or disability [email or web address] Not available 10/18 16:19:00 Medical History No medical history recorded. Gynecological HistoryNo gynecological history recorded. Obstetrics History GPAL:G 0 P 0 0 0 0 Past Encounters Encounter ID Performer Location Encounter Start Date Encounter Closed Date Diagnosis/Indication Diagnosis SNOMED-CT Code Diagnosis ICD10 Code Diagnosis Note [id number] [address] [place] [address] 10/10/2020 16:22:23 10/10/2020 18:18:23 [id number] CONRAD Keane [address] [facility] [place] [address] 10/18/2024 16:09:58 10/18/2024 16:29:23 Contact dermatitis 38094421 L25.9 Based on your presentati on and [...] Name 10/18/2024 1 [employer]) [address] Katlyn Shaikh [id number] 782 Katyln Shaikh Notes Date Note Type Note Provider Name and Address Organization Details Recorded Time 10/18/2024 text/html 49 y/o female here with several red, irritated spots on her belly button, upper back, and L leg. Has happened in the past, wants to make sure it isn't ringworm CONRAD Keane [address] [place], [address], [place] - [facility] 10/18/2024 16:31:25 OBGyn Episode No OBEpisode recorded.
--- OUTSIDE RECORDS SUMMARY | 2025-03-07 09:18 | XMS_ITS | Patient Health Record ---
[facility] Address [address] [place] [address] Care Team Providers Care Community Representative Name Role Phone Holly SMITH, Ailyn Primary Care Provider Unavail able Migdalia Luis Unavailable [phone] Allergies Allergen (clinical drug ingredient) Drug/Non Drug [...] Coverage End Date Blue Benefits [address] [address] [place] [address] [id number] Katlyn Shaikh Self - patient is the insured Medical (General) History Medical History History ICD Code Anemia asthma Cancer Kidney disease Numbness Neuropathy Sciatica Chicken pox Joint implants/screws Transfusions Surgical History Surgery Date(Month/Year) knee surgery, left / complication: blood clot/DVT 2006 colon cancer 2013 portacath placement 2012 Ingrown Toe Nail 2000
[2025-03-07] MEDS: Sodium Bicarbonate 8.4% 50 MEQ/50 ML VIAL SUBCUT (10:42)
[2025-03-07] MEDS: Lidocaine HCl 1 % 20 ML VIAL 9 ML SUBCUT (10:43)
== END 2025-03-07 08:54 | disposition home or self-care (01) ==
LOC: HO.MAMMO 08:53
PROVIDERS: PCP Physician Assistant; Visit Provider Surgery
DX: N63.12 Unspecified lump in the right breast, upper inner quadrant (principal)
CPT/HCPCS: 19083; 77061; 77065; 88305; A4648; J2003

== ENCOUNTER → 2025-03-07 09:00 | Outpatient (BNV) | payer OTHER, SELFPAY | PROVIDERS: PCP Physician Assistant; Visit Provider Internal Medicine | DX: N63.15 Unspecified lump in the right breast, overlapping quadrants (principal) | CPT/HCPCS: 19083; 77065 ==

== ENCOUNTER → 2025-03-12 13:49 | Outpatient (BNVA) | payer OTHER, SELFPAY | PROVIDERS: PCP Physician Assistant; Visit Provider Surgery | DX: Z13.79 Encounter for other screening for genetic and chromosomal anomalies (principal) | CPT/HCPCS: 99211 ==

== ENCOUNTER 2025-03-13 15:03 | Outpatient (AMB) | payer OTHER, SELFPAY ==
--- NOTE | 2025-03-13 15:15 | A.OFFPC_ITS ---
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 Manufacturing Technician Required: No Accompanied by: Self / Same As Patient Allergies shrimp [SHRIMP] Allergy (Severe, Verified 03/13/25 15:45) Anaphylaxis latex [LATEX] Allergy (Intermediate, Verified 03/13/25 15:45) RASH Penicillins Allergy (Intermediate, Verified 03/13/25 15:45) Itching Sulfa (Sulfonamide Antibiotics) [SULFA (SULFONAMIDE ANTIBIOTICS)] Allergy (Intermediate, Verified 03/13/25 15:45) HIVES levofloxacin [From LEVAQUIN] Adverse Reaction (Severe, Verified 03/13/25 15:45) AGITATION morphine [MORPHINE] Adverse Reaction (Severe, Verified 03/13/25 15:45) HEADACHES adhesives Allergy (Intermediate, Uncoded 03/13/25 15:45) rash Medication List - Last Reconciled 03/13/25 by Ailyn Quintana MD albuterol sulfate 90 mcg/actuation 1 inh inhalation QID PRN azelastine 0.05% 1 drp ophthalmic (eye) BID PRN bupropion HCl XL 300 mg PO QAM 90 days CPAP (CPAP Machine/Device) As directed fexofenadine (Keeley Allergy) 180 mg PO DAILY levonorgestrel (Mirena) 20 mcg intrauterine DIRECTED omeprazole 20 mg PO DAILY oxymetazoline 0.05% (Afrin (oxymetazoline)) 2 sprays intranasal Q12H PRN rivaroxaban (Xarelto) 10 mg PO DAILY PRN triamcinolone acetonide 1 spray intranasal DAILY Tobacco use date assessed: 01/14/25 Dental Screening Dental Screen Date: 03/13/25 Did you have a dental visit in the last 12 months?: Yes Did you have a dental problem in the last 6 months where you did not have access to dental care?: No Was dental information given to patient?: Patient has dentist HPI HPI Comments History of Present Illness Details The patient is a 49-year-old female presenting with chronic right hip pain, persistent for several months. The pain lacks a clear inciting event and has not been alleviated by [id number] medications or a prior cortisone injection. It intensifies upon prolonged sitting and requires changes in body position for relief when lying down due to a burning sensation. Attempts at self-management, including exercises and heat application, provide minimal relief. Previous imaging involved a right hip x-ray, but more detailed evaluation via MRI is suggested. She has a documented history of deep vein thrombosis and many allergies, including to shrimp, latex, penicillin, sulfa drugs, levofloxacin, and morphine. Depression is managed effectively with bupropion, and she maintains regular checkups for a past colon cancer diagnosis. Her sleep apnea treatment is compromised by an inability to tolerate CPAP due to discomfort. Her heartburn is well-controlled with omeprazole. History of colon cancer follow by Gastroenterology. [facility] Medical History Family history of breast cancer Physical exam Sinus infection Ovarian cyst GERD (gastroesophageal reflux disease) IUD (intrauterine device) in place History of blood transfusion Medullary sponge kidney Asthma History of seizure Seasonal allergies RADHA (obstructive sleep apnea) History of chemotherapy (~2012) Hx of radiation therapy (~2012) Recent bereavement Left arm pain Neck pain Retrognathia Vaginal discharge Rash Subconjunctival hemorrhage of left eye Upper respiratory tract infection Hemorrhoids with complication Myalgia Right wrist pain Right shoulder pain Screen for STD (sexually transmitted disease) Retained tampon COVID-19 Conjunctivitis Well woman exam Breast pain Shortness of breath PVC (premature ventricular contraction) PAC (premature atrial contraction) Colon cancer (~2012) DVT (deep venous thrombosis) Heart palpitations Shortness of breath Surgical History History of kidney surgery Hx of colonoscopy History of esophagogastroduodenoscopy (EGD) H/O knee surgery History of colon surgery Family History Mother High blood pressure COPD (chronic obstructive pulmonary disease) History of four vessel coronary artery bypass graft Mental health disorder Father High blood pressure Cancer Maternal Grandfather Colon cancer Paternal Aunt Colon cancer Social History (Updated 03/13/25 @ 15:16 by BOGDAN Blackburn) Housing: House Are you a primary med care manager to a significant other at home: No Do you presently have visiting nurse or other home services: No Alcohol intake: current Alcohol intake frequency: a few times a month Alcohol type: wine Patient Tobacco Use Status: Former Tobacco user Tobacco use type: Smokeless Tobacco e-Cigarette/Vaping Use: Currently Using Second Hand Smoke Exposure: Yes service: No Current occupational status: employed 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 1. Little interest or pleasure in doing things: not at all 2. Feeling down, depressed, or hopeless: not at all 3. Trouble falling or staying asleep, or sleeping too much: several days 4. Feeling tired or having little energy: several days 5. Poor appetite or overeating: not at all 6. Feeling bad about yourself - or that you are a failure or have let yourself or your family down: not at all 7. Trouble concentrating on things, such as reading the newspaper or watching television: not at all 8. Moving or speaking so slowly that other people could have noticed. Or the opposite - being so fidgety or restless that you have been moving around a lot more than usual: not at all 9. Thoughts that you would be better off or of hurting yourself in some way: not at all Total score: 2 Depression Screening Interpretation: Positive Depression Screening Follow-up: Existing condition, In treatment and Follow-up Visit Requested Depression Screening Done: Yes 91300 - PHQ-9 Billing: Yes Source: Developed by Drs. Phuc Carter, Carlita Mercado, Joseph Christianson and colleagues, with an educational oumar from [employer]. Thrive Questionnaire Date Thrive assessed: 03/13/25 I am a: Patient What is your living situation today?: I have a steady place to live Within the past 12 months, did the food you bought not last and you didn't have the money to get more?: Never true Within the past 12 months, did you worry whether your food would run out before you got money to buy more?: Never true Do you have trouble paying for medicines?: No Do you have trouble getting transportation to medical appointments?: No Do you have trouble paying your heating and electricity bill?: No Do you have trouble taking care of your child, family member or friend?: No Do you have trouble with day-to-day activities such as bathing, preparing meals, shopping, managing finances, etc.?: No Are you currently unemployed and looking for a job?: No Are you interested in more education?: No Please select the resources that you would like help with: None Currently or been in a relationship where the following occur: No concerns reported THRIVE Score: 0 AUDIT C Alcohol Use Questionnaire (AUDIT-C) 1. How often do you have a drink containing alcohol?: 2-4 times a month 2. How many drinks containing alcohol do you have on a typical day when you are drinking?: 3 or 4 3. How often do you have six or more drinks on one occasion?: Less than monthly Total Score: 4 CHAVA-7 AMB Questionnaire CHAVA-7 Date CHAVA - 7 assessed: 03/13/25 Feeling nervous, anxious, or on edge: 0 = Not at all Not being able to stop or control worryin = Not at all Worrying too much about different things: 0 = Not at all Trouble relaxin = Not at all Being so restless that it is hard to sit still: 0 = Not at all Becoming easily annoyed or irritable: 1 = Several days Feeling afraid as if something awful might happen: 1 = Several days Total CHAVA-7 score (0-4 normal; 5-9 mild; 10-14 moderate; 15-21 severe): 2 Source: Developed by Drs. Phuc Carter, Carlita Mercado, Joseph Christianson and colleagues, with an educational oumar from [employer]. CHAVA-7 Assessment Billing CHAVA-7 Assessment Tool: CHAVA-7 Assessment 22949 Review of Systems Const All systems reviewed & are unremarkable except as noted in HPI and below Card Denies chest pain at rest, Denies chest pain with activity, Denies edema, Denies irregular heart rhythm, Denies claudication, Denies dyspnea, Denies dyspnea on exertion, Denies orthopnea, Denies paroxysmal nocturnal dyspnea and Denies slow heart rate Resp Denies cough, Denies dyspnea and Denies dyspnea on exertion Physical exam (Primary Care) Vital Signs: Last Vital Signs BP 108/82 03/13/25 15:16 BMI result Body Mass Index 32.2 BMI Assessment/Plan discussion: High BMI High, discussed plan: lifestyle, weight reduction, dietary and physical activity Tobacco/Smoking Status: Tobacco use Status Tobacco use date assessed 01/14/25 03/13/25 15:22 Patient Tobacco Use Status Former Tobacco user 03/13/25 15:22 Tobacco use type Smokeless Tobacco 03/13/25 15:22 e-Cigarette/Vaping Use Currently Using 03/13/25 15:22 PHQ-9: PHQ-9 Score PHQ-9: Total score 2 03/13/25 15:52 Depression Screening Interpretation: Positive Depression Screening Follow-up: Existing condition, In treatment and Follow-up Visit Requested Thrive Assessment: Date of Thrive Assessment Date Thrive assessed 03/13/25 03/13/25 15:22 Currently or been in a relationship where the following occur: No concerns reported Resp Effort & Inspection: normal respiratory effort Auscultation: clear to auscultation bilaterally Cardio Jugular venous distension: no JVD Rate: regular rate Rhythm: regular rhythm Heart sounds: S1 normal heart sound present and S2 normal heart sound present Extrem General: Yes full ROM Coding Level of Care Code Est Pt Level 4 (51846) Complex EM visit Add On G2211 Diagnoses Trochanteric bursitis, right hip M70.61 GERD (gastroesophageal reflux disease) K21.9 Allergic rhinitis J30.9 RADHA (obstructive sleep apnea) G47.33 Mild major depression F32.0 Malignant neoplasm of colon, unspecified part of colon C18.9 Colon location: unspecified part of colon Left leg DVT I82.402 Additional Codes CHAVA-7 Assessment Billing - CHAVA-7 Assessment Tool: CHAVA-7 Assessment 50832 ([id number]) PHQ-9 - 98279 - PHQ-9 Billing: Yes ([id number]) Time Spent (min) 22 Assessment & Plan Assessment & Plan (1) Trochanteric bursitis, right hip: Code(s): M70.61 - Trochanteric bursitis, right hip Category: Medical (2) GERD (gastroesophageal reflux disease): Code(s): K21.9 - Gastro-esophageal reflux disease without esophagitis Category: Medical (3) Allergic rhinitis: Comment: HAS CHRONIC INTERMITTENT ALLERGIC RHINITIS, CONTROLLED WITH ALLOGRAFT P.R.N. AND USE OF IPRATROPIUM NASAL SPRAY 2 SPRAYS B.I.D. P.R.N. Code(s): J30.9 - Allergic rhinitis, unspecified Category: Medical (4) RADHA (obstructive sleep apnea): Comment: MODERATELY SEVERE OBSTRUCTIVE SLEEP APNEA. PATIENT STARTED ON CPAP THERAPY, WITH AUTO PAP MODE AND PRESSURE SETTING 6-16 CM, FULLFACE MASK. USE OF CPAP REMAINS SUBOPTIMAL . HAD A GOOD DISCUSSION AND I HAVE ENCOURAGED THE PATIENT TO USE FOR MORE HOURS, AT LEAST FOR 4 HOURS PER NIGHT. IN ORDER TO GET USE TO THE MASK SHE MAY WEAR IT DURING THE DAYTIME IN THE EVENING WHEN WATCHING TELEVISION. SHE MAY ALSO NEED TO CONTACT THE DME PROVIDER FOR TECHNICAL SUPPORT. Code(s): G47.33 - Obstructive sleep apnea (adult) (pediatric) Category: Medical (5) Mild major depression: Code(s): F32.0 - Major depressive disorder, single episode, mild Category: Medical (6) Colon cancer: Code(s): C18.9 - Malignant neoplasm of colon, unspecified Category: Medical Qualifiers: Colon location: unspecified part of colon Qualified Code(s): C18.9 - Malignant neoplasm of colon, unspecified (7) Left leg DVT: Code(s): I82.402 - Acute embolism and thrombosis of unspecified deep veins of left lower extremity Category: Medical Plan An MRI of the right hip will be arranged to evaluate the chronic pain's etiology following an inconclusive x-ray and inadequacy of previous cortisone injections. Emphasis is placed on consistent bupropion usage for the maintenance of depressive symptomatology. Patient adherence to a keto-friendly diet and regular weight monitoring is advised. CPAP machine usage challenges were acknowledged, and further discussions for alternatives will ensue. Continued use of omeprazole for heartburn control, alongside avoiding known allergens, is advised. The patient should continue scheduled reviews with gastroenterology for surveillance post-colon cancer treatment and maintain rivaroxaban when flying due to DVT history. Patient was informed and verbally consented to the use of an ambient scribe for clinic note documentation during this visit. During our discussion, I explained the likely etiology of the chronic right hip pain as possibly due to trochanteric bursitis and recommended an MRI to ascertain detailed insights beyond the previous x-ray. We reviewed consistent use of bupropion for depression management, emphasizing its effectiveness. I advised on weight management through accurately recording weight changes morning before eating, given her keto journey. This includes weighing to reflect true BMI and providing actionable data to guide further efforts. We acknowledged current CPAP intolerance and discussed continuing omeprazole for managing heartburn, reaffirming allergen avoidance. The necessity for MRI investigation for hip pain diagnostics was agreed upon to guide future management accurately. Orders: Orders MR hip RT wo con Today M70.61 - Trochanteric bursitis, right hip Lipid Panel 4 Months E78.5 - Hyperlipidemia, unspecified Vitamin B12 and Folate 4 Months E53.8 - Deficiency of other specified B group vitamins Complete Blood Count Auto Diff 4 Months D64.9 - Anemia, unspecified IRON PROFILE 4 Months D64.9 - Anemia, unspecified Vitamin D 25-OH Total 4 Months E55.9 - Vitamin D deficiency, unspecified Comprehensive [place]. Panel Fast 4 Months M70.61 - Trochanteric bursitis, right hip Patient Instructions: - Arrange for an MRI of the right hip to assess ongoing pain. - Continue your keto-friendly diet for weight management, and regularly weigh yourself in the morning. - Continue taking bupropion, omeprazole, and rivaroxaban as prescribed. - Avoid known allergens to prevent adverse reactions. - Monitor hip pain and note any changes. - Follow-up with recommendations from your food service counter clerk. - Record any new symptoms or allergies that could affect your care.
[2025-03-13 15:16] VITALS: BP 108/82; BMI 32.2
--- OUTSIDE RECORDS SUMMARY | 2025-03-13 16:05 | XMS_ITS | Patient Health Record ---
Author [facility] Address [address] [place] [address] Care Team Providers Care Black Top Spreader Machine Operator Name Role Phone Holly SMITH, Ailyn Primary Care Provider Unavail able Migdalia Luis Unavailable [phone] Allergies Allergen (clinical drug ingredient) Drug/Non Drug [...] Coverage End Date Blue Benefits [address] [address] [place] [address] [id number] Katlyn Shaikh Self - patient is the insured Medical (General) History Medical History History ICD Code Anemia asthma Cancer Kidney disease Numbness Neuropathy Sciatica Chicken pox Joint implants/screws Transfusions Surgical History Surgery Date(Month/Year) knee surgery, left / complication: blood clot/DVT 2006 colon cancer 2013 portacath placement 2012 Ingrown Toe Nail 2000
--- OUTSIDE RECORDS SUMMARY | 2025-03-13 16:05 | XMS_ITS | Data Portability ---
Author Organization [facility] Address [address] [place] [address] Care Team Providers Care Legislative Director Name Role Phone MICHAEL INTERIANO Primary Care Provider Assessment No assessment recorded. Plan of Treatment Reminders Order Date Submit Date Provider Last Modified By Organization Details Last Modified Time Details Appointments None recorded. Lab None recorded. Referral None recorded. Procedures None recorded. Surgeries None recorded. Imaging None recorded. Medication Orders clobetasol 0.05 % topical ointment 2023 024 [id number], [address] [place], [address], 16:28:28 Patient TargetsNo targets recorded. Patient Instructions Encounter Date Encounter Id Patient Instructions Last Modified By Organization Details Last Modified Time 10/18/2024 [id number] dermatitis: care instructions [email or web address] Not available 10/18/2024 16:28:26 Reason for Referral None Reported. Problems Name Problem SNOMED Code Status Onset Date Resolution Date Notes Provider Name and Address Organization Details Recorded Time Depressiv e disorder 65785443 Active CONRAD Bullock [facility] 4 16:18:56 Malignant tumor of colon 073209725 Completed 202310/18/2024 Removal Reason: surgery CONRAD Keane [facility] [place], [id number] , CONRAD Dumont [facility] 16:27:43 Problem Notes None recorded. Medical Equipment None Reported. Allergies Allergen ID Allergen Name Allergen Category Reaction Reaction Severity Criticality Documentation Date Start Date Code Code System Note Provider Name and Address Organization Details Recorded Time 5726581 Substance with sulfonami de structure and antibacte rial mechanism of action (substanc e) medicatio n hives Not available Not available 10/18/2024 87400 8003 SNOMED Ольга Olmedo null, [place] - [facility] 4 16:16:05 1403397 Augmentin medicatio n abdominal pain Not available Not available 10/18/2024 92106 2 RxNorm Ольга Olmedo null, [place] - [...] Updated DateTime 4 175.26 cm 29.5 kg/m2 40485.4 7 g 98 [degF] 18 /min 77 /min 98 % 98 % 138 mm[Hg] 92 mm[Hg] Ольга Olmedo [place] - [facility] 16:22:06 Social History Question Answer Notes LastModified by Organizat ion Details LastModified Time Tobacco Smoking Status Current Every Day Smoker vape CONRAD Bullock - [facility] 10/18/2024 16:20:08 What Is Your Level Of Alcohol Consumption? Occasional [email or web address] Information not available 10/18/2024 How Many Times Per Week Do You Consume Alcohol? 3-4 Times Per Week [email or web address] Information not available 10/18/2024 Have You Had A Flu Shot This Season? Yes [email or web address] Information not available 10/18/2024 Do You Use Any Illicit Or Recreational Drugs? No [email or web address] Information not available 10/18/2024 Have You Recently Traveled Abroad? No [email or web address] Information not available 10/18/2024 Sex: Unknown Functional Status None recorded. Mental Status None recorded. Family History Relationship Description Onset Age of this Age Resolved Age Notes LastModified by Organization Details LastModified Time Father No current problems or disability [email or web address] Not available 10/18 16:19:00 Mother No current problems or disability [email or web address] Not available 10/18 16:19:00 Medical History No medical history recorded. Gynecological HistoryNo gynecological history recorded. Obstetrics History GPAL:G 0 P 0 0 0 0 Past Encounters Encounter ID Performer Location Encounter Start Date Encounter Closed Date Diagnosis/Indication Diagnosis SNOMED-CT Code Diagnosis ICD10 Code Diagnosis Note [id number] [address] [place] [address] 10/10/2020 16:22:23 10/10/2020 18:18:23 [id number] CONRAD Keane [address] [facility] [place] [address] 10/18/2024 16:09:58 10/18/2024 16:29:23 Contact dermatitis [id number] L25.9 Based on your presentati on and [...] Recorded Advance Directives Directive None Recorded Payers Insurance Date Sequence Insurance Name Policy Number Policy Ascencio Covered Member ID Ascencio Member ID Guarantor Name 10/18/2024 1 [employer] [place]) [id number] Katlyn Shaikh [id number] Katlyn Shaikh Notes Date Note Type Note Provider Name and Address Organization Details Recorded Time 10/18/2024 text/html 49 y/o female here with several red, irritated spots on her belly button, upper back, and L leg. Has happened in the past, wants to make sure it isn't ringworm CONRAD Keane [address] [place], [address], [place] - [facility] 10/18/2024 16:31:25 OBGyn Episode No OBEpisode recorded.
== END 2025-03-13 16:05 | disposition home or self-care (01) ==
LOC: HO.HMCH 15:04
PROVIDERS: PCP Physician Assistant; Visit Provider Internal Medicine
DX: M70.61 Trochanteric bursitis, right hip (principal); C18.9 Malignant neoplasm of colon, unspecified; I82.402 Acute embolism and thrombosis of unspecified deep veins of left lower extremity; K21.9 Gastro-esophageal reflux disease without esophagitis; J30.9 Allergic rhinitis, unspecified; G47.33 Obstructive sleep apnea (adult) (pediatric); F32.0 Major depressive disorder, single episode, mild

== ENCOUNTER → 2025-03-13 15:03 | Outpatient (BNVA) | payer OTHER, SELFPAY | PROVIDERS: PCP Physician Assistant; Visit Provider Internal Medicine | DX: M70.61 Trochanteric bursitis, right hip (principal); K21.9 Gastro-esophageal reflux disease without esophagitis; J30.9 Allergic rhinitis, unspecified; G47.33 Obstructive sleep apnea (adult) (pediatric); F32.0 Major depressive disorder, single episode, mild; C18.9 Malignant neoplasm of colon, unspecified; I82.402 Acute embolism and thrombosis of unspecified deep veins of left lower extremity | CPT/HCPCS: 96127 ==

== ENCOUNTER 2025-03-14 08:52 | Outpatient (AMB) | payer OTHER, SELFPAY ==
--- NOTE | 2025-03-14 08:54 | MHC.OFFVIS ---
Vital Signs 03/14/25 08:57 Height 5 ft 9 in Weight 217 lb BMI 32.0 BP 148/74 H Blood Pressure Location Rt brachial Position Sitting Pulse 69 Intake Visit Reasons: s/p us guided bx, rt 3 o'clock mass Intake Note: Patient here s/p rt br US guided bx 3o'clock mass. Reports incision at bx site healing well. Patient c/o: no concerns. 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 Accompanied by: Self / Same As Patient Allergies shrimp [SHRIMP] Allergy (Severe, Verified 03/14/25 08:57) Anaphylaxis latex [LATEX] Allergy (Intermediate, Verified 03/14/25 08:57) RASH Penicillins Allergy (Intermediate, Verified 03/14/25 08:57) Itching Sulfa (Sulfonamide Antibiotics) [SULFA (SULFONAMIDE ANTIBIOTICS)] Allergy (Intermediate, Verified 03/14/25 08:57) HIVES levofloxacin [From LEVAQUIN] Adverse Reaction (Severe, Verified 03/14/25 08:57) AGITATION morphine [MORPHINE] Adverse Reaction (Severe, Verified 03/14/25 08:57) HEADACHES adhesives Allergy (Intermediate, Uncoded 03/14/25 08:57) rash Medication List - Last Reconciled 03/14/25 by Ben Dooley MD albuterol sulfate 90 mcg/actuation 1 inh inhalation QID PRN azelastine 0.05% 1 drp ophthalmic (eye) BID PRN bupropion HCl XL 300 mg PO QAM 90 days CPAP (CPAP Machine/Device) As directed fexofenadine (Keeley Allergy) 180 mg PO DAILY levonorgestrel (Mirena) 20 mcg intrauterine DIRECTED omeprazole 20 mg PO DAILY oxymetazoline 0.05% (Afrin (oxymetazoline)) 2 sprays intranasal Q12H PRN rivaroxaban (Xarelto) 10 mg PO DAILY PRN triamcinolone acetonide 1 spray intranasal DAILY HPI HPI s/p us guided bx, rt 3 o'clock mass: Details: She had undergone an ultrasound biopsy of a right breast mass last 03/07/2025. She tolerated procedure well. She says she did not have any hematoma thereafter. [facility] Medical History Family history of breast cancer Physical exam Sinus infection Ovarian cyst GERD (gastroesophageal reflux disease) IUD (intrauterine device) in place History of blood transfusion Medullary sponge kidney Asthma History of seizure Seasonal allergies RADHA (obstructive sleep apnea) History of chemotherapy (~2012) Hx of radiation therapy (~2012) Recent bereavement Left arm pain Neck pain Retrognathia Vaginal discharge Rash Subconjunctival hemorrhage of left eye Upper respiratory tract infection Hemorrhoids with complication Myalgia Right wrist pain Right shoulder pain Screen for STD (sexually transmitted disease) Retained tampon COVID-19 Conjunctivitis Well woman exam Breast pain Shortness of breath PVC (premature ventricular contraction) PAC (premature atrial contraction) Colon cancer (~2012) DVT (deep venous thrombosis) Heart palpitations Shortness of breath Surgical History History of kidney surgery Hx of colonoscopy History of esophagogastroduodenoscopy (EGD) H/O knee surgery History of colon surgery Family History Mother High blood pressure COPD (chronic obstructive pulmonary disease) History of four vessel coronary artery bypass graft Mental health disorder Father High blood pressure Cancer Maternal Grandfather Colon cancer Paternal Aunt Colon cancer Social History Housing: House Are you a primary health care coach to a significant other at home: No Do you presently have visiting nurse or other home services: No Alcohol intake: current Alcohol intake frequency: a few times a month Alcohol type: wine Patient Tobacco Use Status: Former Tobacco user Tobacco use type: Smokeless Tobacco e-Cigarette/Vaping Use: Currently Using Second Hand Smoke Exposure: Yes service: No Current occupational status: employed 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 Current occupational exposures/hazards: No Cognitive needs: No Hearing needs: No Vision needs: No Female Reproductive History Menstrual Age of Menarche: 10 Review of Systems Const Denies chills and Denies fever(s) Card Denies chest pain, Denies dyspnea and Denies dyspnea on exertion Resp Denies cough, Denies dyspnea and Denies dyspnea on exertion GI Denies hematochezia and Denies change in bowel habits Denies hematuria Musc Denies back pain and Denies limited range of motion Neuro Denies focal weakness and Denies convulsions Psych Denies depression and Denies mood swings Physical Exam Vital Signs: Last Vital Signs Pulse 69 03/14/25 08:57 BP 148/74 H 03/14/25 08:57 BMI result Body Mass Index 32.0 Const General: comfortable and no acute distress Chest Other: No hematoma on biopsy site Resp Effort & Inspection: normal respiratory effort Assessment & Plan Assessment & Plan (1) Breast mass, right: Code(s): N63.10 - Unspecified lump in the right breast, unspecified quadrant Category: Medical Plan: Status post ultrasound biopsy. The path report shows benign breast tissue with stromal fibrosis and no atypia or malignancy. I explained to her the benign nature of the pathology. The radiologist did recommended a six-month follow-up MRI for the breasts . She can otherwise follow up with me on a p.r.n. basis. Coding Level of Care Code Est Pt Level 2 (13031) Diagnoses Breast mass, right N63.10
[2025-03-14 08:57] VITALS: BP 148/74; PULSE 69; BMI 32.0
== END 2025-03-14 09:08 | disposition home or self-care (01) ==
LOC: HO.HGS 08:53
PROVIDERS: PCP Physician Assistant; Visit Provider Surgery
DX: N63.10 Unspecified lump in the right breast, unspecified quadrant (principal)
CPT/HCPCS: 99212

== ENCOUNTER → 2025-03-14 08:52 | Outpatient (BNVA) | payer OTHER, SELFPAY | PROVIDERS: PCP Physician Assistant; Visit Provider Surgery ==

== ENCOUNTER 2025-03-15 09:55 | Outpatient (AMB) | payer OTHER, SELFPAY ==
[2025-03-15 09:57] VITALS: BP 118/78; PULSE 87; TEMP 36.9; O2SAT 98; BMI 32.2
--- NOTE | 2025-03-15 09:57 | MHC.OFFWIV ---
Intake Vital Signs 03/15/25 09:57 Height 5 ft 9 in Weight 218 lb 4 oz BMI 32.2 BP 118/78 Blood Pressure Location Rt brachial Position Sitting Pulse 87 Pulse Source Pulse Oximeter Temp 98.4 F Temp Source Oral Pulse Oximetry (%) 98 Oxygen Delivery Method Room Air Intake Visit Reasons: EP reaction to oral difulcan? rash, lip Patient Tobacco Use Status: Former Tobacco user Allergies shrimp [SHRIMP] Allergy (Severe, Verified 03/15/25 09:57) Anaphylaxis latex [LATEX] Allergy (Intermediate, Verified 03/15/25 09:57) RASH Penicillins Allergy (Intermediate, Verified 03/15/25 09:57) Itching Sulfa (Sulfonamide Antibiotics) [SULFA (SULFONAMIDE ANTIBIOTICS)] Allergy (Intermediate, Verified 03/15/25 09:57) HIVES levofloxacin [From LEVAQUIN] Adverse Reaction (Severe, Verified 03/15/25 09:57) AGITATION morphine [MORPHINE] Adverse Reaction (Severe, Verified 03/15/25 09:57) HEADACHES adhesives Allergy (Intermediate, Uncoded 03/14/25 08:57) rash Do you need a note to return to daycare/school/sports/work: No HPI EP reaction to oral difulcan? rash, lip HPI Details This is a 49-year-old female patient who presents to the walk-in clinic today with report of possible allergic reaction to medication. States that she took Diflucan for yeast infection, and later that day developed an itchy rash - spots on her abdomen, back, and left axilla. She also has an itching sensation around her lips. Denies any sensation of tongue/ throat swelling or itching. She states that last year she had similar reaction after Diflucan dose, however she was unsure if it was attributed to med or not. REPLACED BY [facility] Medical History Family history of breast cancer Physical exam Sinus infection Ovarian cyst GERD (gastroesophageal reflux disease) IUD (intrauterine device) in place History of blood transfusion Medullary sponge kidney Asthma History of seizure Seasonal allergies RADHA (obstructive sleep apnea) History of chemotherapy (~2012) Hx of radiation therapy (~2012) Recent bereavement Left arm pain Neck pain Retrognathia Vaginal discharge Rash Subconjunctival hemorrhage of left eye Upper respiratory tract infection Hemorrhoids with complication Myalgia Right wrist pain Right shoulder pain Screen for STD (sexually transmitted disease) Retained tampon COVID-19 Conjunctivitis Well woman exam Breast pain Shortness of breath PVC (premature ventricular contraction) PAC (premature atrial contraction) Colon cancer (~2013) DVT (deep venous thrombosis) Heart palpitations Shortness of breath Surgical History History of kidney surgery Hx of colonoscopy History of esophagogastroduodenoscopy (EGD) H/O knee surgery History of colon surgery Family History Mother High blood pressure COPD (chronic obstructive pulmonary disease) History of four vessel coronary artery bypass graft Mental health disorder Father High blood pressure Cancer Maternal Grandfather Colon cancer Paternal Aunt Colon cancer Social History Housing: House Are you a primary resident care aid to a significant other at home: No Do you presently have visiting nurse or other home services: No Alcohol intake: current Alcohol intake frequency: a few times a month Alcohol type: wine Patient Tobacco Use Status: Former Tobacco user Tobacco use type: Smokeless Tobacco e-Cigarette/Vaping Use: Currently Using Second Hand Smoke Exposure: Yes service: No Current occupational status: employed 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 Current occupational exposures/hazards: No Cognitive needs: No Hearing needs: No Vision needs: No Female Reproductive History Menstrual Age of Menarche: 10 Review of Systems Const All systems reviewed & are unremarkable except as noted in HPI and below Physical Exam Vital Signs: Last Vital Signs Temp 98.4 F 03/15/25 09:57 Pulse 87 03/15/25 09:57 BP 118/78 03/15/25 09:57 Pulse Ox 98 03/15/25 09:57 Oxygen Delivery Method Room Air 03/15/25 09:57 BMI result Body Mass Index 32.2 Const General: cooperative, healthy appearing and no acute distress Limitations: no limitations HEENT Head: Yes normal to inspection Face and sinus: Yes normal facial exam Mouth: Normal oral and palatal mucosa present Throat: Yes posterior oropharynx normal Resp Effort & Inspection: normal respiratory effort Auscultation: clear to auscultation bilaterally Cardio Rate: regular rate Rhythm: regular rhythm Skin Other: urticaria left axillary area, several spots on abdomen/back, lips appear cracked Extrem General: Yes capillary refill normal and Yes no clubbing, cyanosis or edema Psych Appearance: grossly normal Mental Status: mental status grossly normal Speech and movement: Normal speech and movement present Assessment & Plan Assessment & Plan (1) Allergic reaction caused by a drug: Code(s): T78.40XA - Allergy, unspecified, initial encounter Qualifiers: Encounter type: initial encounter Qualified Code(s): T78.40XA - Allergy, unspecified, initial encounter Plan: Likely allergic reaction to the Diflucan, as this is the second occurrence of a reaction following taking this medication. Patient has done well on Prednisone in the past. Will start her on a short course of this. We reviewed indications, use, possible side effects of medication. She can also take Benadryl as needed. If she does not improve with treatment she can return to the clinic. If she develops any respiratory symptoms, she should go immediately to the emergency department. She verbalizes understanding and agrees to plan. Medications: New prednisone 20 mg PO BID 5 days 10 tabs 0RF T78.40XA - Allergy, unspecified, initial encounter Coding Level of Care Code Est Pt Level 4 (98569) Diagnoses Allergic reaction to drug, initial encounter T78.40XA Encounter type: initial encounter
--- OUTSIDE RECORDS SUMMARY | 2025-03-15 10:16 | XMS_ITS | Data Portability ---
[facility] Address [address] [place] [id number] Care Team Providers Care Damage Appraiser Name Role Phone MICHAEL INTERIANO Primary Care Provider Assessment No assessment recorded. Plan of Treatment Reminders Order Date Submit Date Provider Last Modified By Organization Details Last Modified Time Details Appointments None recorded. Lab None recorded. Referral None recorded. Procedures None recorded. Surgeries None recorded. Imaging None recorded. Medication Orders clobetasol 0.05 % topical ointment 2023 024 [id number], [address] [place], [address], 16:28:28 Patient TargetsNo targets recorded. Patient Instructions Encounter Date Encounter Id Patient Instructions Last Modified By Organization Details Last Modified Time 10/18/2024 [id number] dermatitis: care instructions [email or web address] Not available 10/18/2024 16:28:26 Reason for Referral None Reported. Problems Name Problem SNOMED Code Status Onset Date Resolution Date Notes Provider Name and Address Organization Details Recorded Time Depressiv e disorder 01761011 Active CONRAD Bullock [facility] 4 16:18:56 Malignant tumor of colon 696124890 Completed 202310/18/2024 Removal Reason: surgery CONRAD Keane [facility] [place], [phone] , CONRAD Dumont [facility] 16:27:43 Problem Notes None recorded. Medical Equipment None Reported. Allergies Allergen ID Allergen Name Allergen Category Reaction Reaction Severity Criticality Documentation Date Start Date Code Code System Note Provider Name and Address Organization Details Recorded Time 0058583 Substance with sulfonami de structure and antibacte rial mechanism of action (substanc e) medicatio n hives Not available Not available 10/18/2024 30340 8003 SNOMED Ольга Olmedo null, [place] - [facility] 4 16:16:05 0010005 Augmentin medicatio n abdominal pain Not available Not available 10/18/2024 82666 2 RxNorm Ольга Olmedo null, [place] - [...] Updated DateTime 4 175.26 cm 29.5 kg/m2 67476.4 7 g 98 [degF] 18 /min 77 /min 98 % 98 % 138 mm[Hg] 92 mm[Hg] Ольга Olmedo [place] - [facility] 16:22:06 Social History Question Answer Notes LastModified by Organizat ion Details LastModified Time Tobacco Smoking Status Current Every Day Smoker vape CONRAD Bullock - [facility] 10/18/2024 16:20:08 What Is Your Level Of Alcohol Consumption? Occasional [email or web address] Information not available 10/18/2024 How Many Times Per Week Do You Consume Alcohol? 3-4 Times Per Week [email or web address] Information not available 10/18/2024 Have You Had A Flu Shot This Season? Yes [email or web address] Information not available 10/18/2024 Do You Use Any Illicit Or Recreational Drugs? No [email or web address] Information not available 10/18/2024 Have You Recently Traveled Abroad? No [email or web address] Information not available 10/18/2024 Sex: Unknown Functional Status None recorded. Mental Status None recorded. Family History Relationship Description Onset Age of this Age Resolved Age Notes LastModified by Organization Details LastModified Time Father No current problems or disability [email or web address] Not available 10/18 16:19:00 Mother No current problems or disability [email or web address] Not available 10/18 16:19:00 Medical History No medical history recorded. Gynecological HistoryNo gynecological history recorded. Obstetrics History GPAL:G 0 P 0 0 0 0 Past Encounters Encounter ID Performer Location Encounter Start Date Encounter Closed Date Diagnosis/Indication Diagnosis SNOMED-CT Code Diagnosis ICD10 Code Diagnosis Note [id number] [address] [place] [address] 10/10/2020 16:22:23 10/10/2020 18:18:23 [id number] CONRAD Keane [address] [facility] [place] [address] 10/18/2024 16:09:58 10/18/2024 16:29:23 Contact dermatitis [id number] L25.9 Based on your presentati on and [...] 1 [employer] [place] [employer]) [id number] Katlyn Shaikh [id number] Katlyn Shaikh Notes Date Note Type Note Provider Name and Address Organization Details Recorded Time 10/18/2024 text/html 49 y/o female here with several red, irritated spots on her belly button, upper back, and L leg. Has happened in the past, wants to make sure it isn't ringworm CONRAD Keane [address] [place], [address], [place] - [facility] 10/18/2024 16:31:25 OBGyn Episode No OBEpisode recorded.
--- OUTSIDE RECORDS SUMMARY | 2025-03-15 10:17 | XMS_ITS | Patient Health Record ---
[facility] Address [address] [place] [address] Care Team Providers Care Applications Support Specialist Name Role Phone Holly SMITH, Ailyn Primary Care Provider Unavail able Migdalia Luis Unavailable [phone] Allergies Allergen (clinical drug ingredient) Drug/Non Drug [...] Coverage End Date Blue Benefits [address] [address] [place] [address] [id number] Katlyn Shaikh Self - patient is the insured Medical (General) History Medical History History ICD Code Anemia asthma Cancer Kidney disease Numbness Neuropathy Sciatica Chicken pox Joint implants/screws Transfusions Surgical History Surgery Date(Month/Year) knee surgery, left / complication: blood clot/DVT 2006 colon cancer 2013 portacath placement 2012 Ingrown Toe Nail 2000
== END 2025-03-15 10:48 | disposition home or self-care (01) ==
PROVIDERS: PCP Internal Medicine; Visit Provider Nurse Practitioner Family
DX: T78.40XA Allergy, unspecified, initial encounter (principal)

== ENCOUNTER → 2025-03-15 09:55 | Outpatient (BNVA) | payer OTHER, SELFPAY | PROVIDERS: PCP Internal Medicine; Visit Provider Nurse Practitioner Family | DX: Z13.89 Encounter for screening for other disorder (principal) ==

== ENCOUNTER 2025-03-19 07:21 | Outpatient (AMB) | payer OTHER, SELFPAY ==
--- NOTE | 2025-03-19 07:23 | A.OFFVIS_ITS ---
Vital Signs 03/19/25 07:31 Height 5 ft 9 in Weight 216 lb 4.375 oz BMI 31.9 BP 134/80 Blood Pressure Location Lt brachial Position Sitting Pulse 87 Pulse Source Pulse Oximeter Pulse Oximetry (%) 98 Oxygen Delivery Method Room Air Intake Visit Reasons: OA Intake Note: Patient presents for OA follow up. Allergies shrimp [SHRIMP] Allergy (Severe, Verified 03/19/25 07:29) Anaphylaxis latex [LATEX] Allergy (Intermediate, Verified 03/19/25 07:29) RASH Penicillins Allergy (Intermediate, Verified 03/19/25 07:29) Itching Sulfa (Sulfonamide Antibiotics) [SULFA (SULFONAMIDE ANTIBIOTICS)] Allergy (Intermediate, Verified 03/19/25 07:29) HIVES levofloxacin [From LEVAQUIN] Adverse Reaction (Severe, Verified 03/19/25 07:29) AGITATION morphine [MORPHINE] Adverse Reaction (Severe, Verified 03/19/25 07:29) HEADACHES adhesives Allergy (Intermediate, Uncoded 03/14/25 08:57) rash HPI Comments Details: Patient is a 49-year-old female with GERD, allergic rhinitis, RADHA, history of colorectal cancer status post chemotherapy and polyarticular osteoarthritis here today for follow up Interval History: Patient last seen 03/19/[address] Aguilera. At that time she was following up for her osteoarthritis. She was doing fairly well noting improvement in her right tenderness after occupational therapy. Had continued bilateral greater trochanteric bursitis right worse than left. She was recommended exercises and told to follow up in a year. Since then she has been fairly well. Has persistent right trochanteric bursitis despite exercises. Had steroid injection from ortho 12/2024 with minimal effect. Currently takes Tylenol and Advil for really bad days Rheumatologic History: Initial history: This is a 47-year-old female with a past medical history of colon cancer diagnosed 8 years ago s/p surgical resection followed by chemotherapy. She also has history of 2 DVTs, the 1st was when she was having left ACL repair, the 2nd was in the context of her cancer diagnosis and treatment. For the last year patient has been having multiple joint pain, he has pain in her neck, shoulders, going all the way down to her hands, especially right wrist She has generalized stiffness in the morning. Her neck cracks. She also feels that her strength is not the same. Patient sleeps about 6 hours at night but does not wake up refreshed. She goes to the bathroom multiple times for urination. Denies any unintentional weight loss. She has dry eyes and uses Restasis as needed with some relief. 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 Current Rheumatology Medication(s): [facility] Medical History Family history of breast cancer Physical exam Sinus infection Ovarian cyst GERD (gastroesophageal reflux disease) IUD (intrauterine device) in place History of blood transfusion Medullary sponge kidney Asthma History of seizure Seasonal allergies RADHA (obstructive sleep apnea) History of chemotherapy (~2012) Hx of radiation therapy (~2012) Recent bereavement Left arm pain Neck pain Retrognathia Vaginal discharge Rash Subconjunctival hemorrhage of left eye Upper respiratory tract infection Hemorrhoids with complication Myalgia Right wrist pain Right shoulder pain Screen for STD (sexually transmitted disease) Retained tampon COVID-19 Conjunctivitis Well woman exam Breast pain Shortness of breath PVC (premature ventricular contraction) PAC (premature atrial contraction) Colon cancer (~2012) DVT (deep venous thrombosis) Heart palpitations Shortness of breath Surgical History History of kidney surgery Hx of colonoscopy History of esophagogastroduodenoscopy (EGD) H/O knee surgery History of colon surgery Family History Mother High blood pressure COPD (chronic obstructive pulmonary disease) History of four vessel coronary artery bypass graft Mental health disorder Father High blood pressure Cancer Maternal Grandfather Colon cancer Paternal Aunt Colon cancer Social History Housing: House Are you a primary healthcare project manager to a significant other at home: No Do you presently have visiting nurse or other home services: No Alcohol intake: current Alcohol intake frequency: a few times a month Alcohol type: wine Patient Tobacco Use Status: Former Tobacco user Tobacco use type: Smokeless Tobacco e-Cigarette/Vaping Use: Currently Using Second Hand Smoke Exposure: Yes service: No Current occupational status: employed 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 Current occupational exposures/hazards: No Cognitive needs: No Hearing needs: No Vision needs: No Female Reproductive History Menstrual Age of Menarche: 10 Review of Systems Const Details: Review of Systems Constitutional: Denies fever, chills, weight loss ENT: Denies vision changes, eye pain or eye redness, dental caries, dry mouth GI: Denies nausea, vomiting, diarrhea, abdominal pain, change in BM Pulm: Denies SOB, PARKER, hemoptysis, wheezing Cards: Denies chest pain, palpitations Skin: Denies Raynaud's, rash, nail changes, photosensitivity, [employer] SOLUTIONS ARCHITECT: Denies headaches, weakness, paresthesias, recurrent falls MSK: as per HPI All other systems reviewed and are unremarkable except noted above Physical Exam Vital Signs: Last Vital Signs Pulse 87 03/19/25 07:31 BP 134/80 03/19/25 07:31 Pulse Ox 98 03/19/25 07:31 Oxygen Delivery Method Room Air 03/19/25 07:31 BMI result Body Mass Index 31.9 Vital signs reviewed Physical Examination CONSTITUITIONAL Patient alert and cooperative. Well appearing and in no apparent painful distress HEENT Conjunctiva and sclera clear. ?Pupils equal round and reactive to light. ?No lymphadenopathy. ? CHEST/RESPIRATORY SYSTEM Normal respiratory effort and able to speak in complete sentences. ?Clear to auscultation bilaterally. ?No crackles, rales, rhonchi, wheezes heard. CARDIAC SYSTEM Regular rate and rhythm. ?S1 and S2 heard no murmurs. ?Radial pulses intact bilaterally MSK Hands: ?Able to make a fist. No synovitis noted to the MCPs, PIPs or DIPs. ?No tenderness to palpation of these joints. No deformities noted. ? Wrists: ?Full range of motion at the wrists without pain. ?No tenderness to palpation or synovitis noted to the wrists. Elbows: Full range of motion without pain. No tenderness, weakness, swelling, increased warmth or erythema. Shoulders: Full range of active range of motion without pain. No tenderness, weakness, swelling, increased warmth or erythema. Hips: Full range of motion without pain. Internal and external rotation of the hip did not elicit any pain bilaterally Hip bursa: Bilateral tenderness to palpation, right worse than left Knees: ?Full range of motion. ?No tenderness, swelling, increased warmth or erythema.? No effusion but crepitations felt Ankles: Full range of motion. ?No tenderness, swelling, increased warmth or erythema.? Feet: ?Negative squeeze test. ?No tenderness to palpation or swelling of the MTPs. Tender points:?No tenderness to palpation of the bilateral trapezius, supraspinatus, greater trochanters, anterior costochondral junctions, bilateral gluteal areas, bilateral suboccipital muscle insertions SKIN Skin intact without rashes. Results Reviewed Results Reviewed: Laboratory Tests 12/20/24 14:55 WBC 5.4 RBC 3.94 L Hgb 12.2 Hct 36.5 L Plt Count 179 Sodium 137 Potassium 4.4 Chloride 103 Carbon Dioxide 28 BUN 16 Creatinine 0.78 AST 29 ALT 33 H Alkaline Phosphatase 65 Total Protein 7.8 Albumin 4.4 Laboratory Tests 07/23/22 08/19/22 07:14 07:15 Rheumatoid Factor < 15.0 Cycl Citrul Peptide IgG <16 GEOVANNY Screen NEGATIVE XR Right Hip 08/2024 FINDINGS: The femoral head remains well seated within acetabulum. No acute fracture. The visualized pelvic rim is intact. No pubic symphysis diastasis. The visualized right sacroiliac joint is normal. IUD overlies the pelvis. Surgical clips and chain sutures overlie the pelvis. Soft tissues are otherwise unremarkable. IMPRESSION: No acute fracture or dislocation of the right hip. Assessment & Plan Assessment & Plan (1) Trochanteric bursitis, right hip: Code(s): M70.61 - Trochanteric bursitis, right hip Category: Medical Plan: #Trochanteric bursitis of right hip Patient is a 49-year-old female with polyarticular osteoarthritis here today for follow up. Currently complaining pain to her right outer hip consistent with trochanteric bursitis. This pain is persistent despite a year of exercises and steroid injection from Orthopedics. She has an MRI scheduled for Tuesday and I am in agreement with this. Based on the findings my recommendations would be to go to physical therapy Plan - Follow up Right Hip MRI - PT after results of the MRI - RTC 1 year or sooner Plan I spent 20 minutes reviewing the record and labs, taking a history, examining the patient, discussing the treatment plan, ordering diagnostic work up and documenting in the medical record Coding Level of Care Code Est Pt Level 3 (23503) Diagnoses Trochanteric bursitis, right hip M70.61
--- OUTSIDE RECORDS SUMMARY | 2025-03-19 07:24 | XMS_ITS | Data Portability ---
[facility] Address [address] [place] [address] Care Team Providers Care Operations General Agent Name Role Phone MICHAEL INTERIANO Primary Care Provider Assessment No assessment recorded. Plan of Treatment Reminders Order Date Submit Date Provider Last Modified By Organization Details Last Modified Time Details Appointments None recorded. Lab None recorded. Referral None recorded. Procedures None recorded. Surgeries None recorded. Imaging None recorded. Medication Orders clobetasol 0.05 % topical ointment [address] [facility]armacy #[id number], [address] [place], [address], 16:28:28 Patient TargetsNo targets recorded. Patient Instructions Encounter Date Encounter Id Patient Instructions Last Modified By Organization Details Last Modified Time 10/18/2024 [id number] dermatitis: care instructions [email or web address] Not available 10/18/2024 16:28:26 Reason for Referral None Reported. Problems Name Problem SNOMED Code Status Onset Date Resolution Date Notes Provider Name and Address Organization Details Recorded Time Depressiv e disorder 94428214 Active CONRAD Bullock [facility] 4 16:18:56 Malignant tumor of colon 862358733 Completed 202310/18/2024 Removal Reason: surgery CONRAD Keane [facility] [place], [address] , CONRAD Dumont [facility] 4 16:27:43 Problem Notes None recorded. Medical Equipment None Reported. Allergies Allergen ID Allergen Name Allergen Category Reaction Reaction Severity Criticality Documentation Date Start Date Code Code System Note Provider Name and Address Organization Details Recorded Time 1109182 Substance with sulfonami de structure and antibacte rial mechanism of action (substanc e) medicatio n hives Not available Not available 10/18/2024 25535 8003 SNOMED Ольга Olmedo null, [place] - [facility] 4 16:16:05 3286319 Augmentin medicatio n abdominal pain Not available Not available 10/18/2024 44126 2 RxNorm Ольга Olmedo null, [place] - [...] Updated DateTime 4 175.26 cm 29.5 kg/m2 27294.4 7 g 98 [degF] 18 /min 77 /min 98 % 98 % 138 mm[Hg] 92 mm[Hg] Ольга Honorio PA - [facility] 16:22:06 Social History Question Answer Notes LastModified by [employer] Details LastModified Time Tobacco Smoking Status Current Every Day Smoker vape Ольга cooper, [place] - [facility] 10/18/2024 16:20:08 Have You Had A Flu Shot This Season? Yes [email or web address] Information not available 10/18/2024 Have You Recently Traveled Abroad? No [email or web address] Information not available 10/18/2024 Sex: Unknown Functional Status Question Answer Note LastModified by [employer] Details LastModified Time How many times per week do you consume alcohol? 3-4 times per week [email or web address] Information not available 10/18/2024 Do you use any illicit or recreational drugs? No [email or web address] Information not available 10/18/2024 What is your level of alcohol consumption? Occasional [email or web address] Information not available 10/18/2024 Mental Status None recorded. Family History Relationship Description Onset Age of this Age Resolved Age Notes LastModified by Organization Details LastModified Time Father No current problems or disability [email or web address] Not available 10/18 16:19:00 Mother No current problems or disability [email or web address] Not available 10/18 16:19:00 Medical History No medical history recorded. Gynecological HistoryNo gynecological history recorded. Obstetrics History GPAL:G 0 P 0 0 0 0 Past Encounters Encounter ID Performer Location Encounter Start Date Encounter Closed Date Diagnosis/Indication Diagnosis SNOMED-CT Code Diagnosis ICD10 Code Diagnosis Note [id number] [address] [place] [address] 10/10/2020 16:22:23 10/10/2020 18:18:23 [id number] CONRAD Keane [address] [place] [address] 10/18/2024 16:09:58 10/18/2024 16:29:23 Contact dermatitis 52843452 L25.9 Based on your presentati on and [...] Name 10/18/2024 1 [employer] [facility] [id number] Katlyn Shaikh [id number] 782 Katlyn Shaikh Notes Date Note Type Note Provider Name and Address Organization Details Recorded Time 10/18/2024 text/html 49 y/o female here with several red, irritated spots on her belly button, upper back, and L leg. Has happened in the past, wants to make sure it isn't ringworm CONRAD Keane [address] [place], [address], [place] - [facility] 10/18/2024 16:31:25 OBGyn Episode No OBEpisode recorded.
--- OUTSIDE RECORDS SUMMARY | 2025-03-19 07:24 | XMS_ITS | Patient Health Record ---
[facility] Address [address] [place] [address] Care Team Providers Care General Purchasing Agent Name Role Phone Holly SMITH, Ailyn Primary Care Provider Unavail able Migdalia Luis Unavailable [phone] Allergies Allergen (clinical drug ingredient) Drug/Non Drug [...] Coverage End Date Blue Benefits [address] [address] [place] [address] [id number] Katlyn Shaikh Self - patient is the insured Medical (General) History Medical History History ICD Code Anemia asthma Cancer Kidney disease Numbness Neuropathy Sciatica Chicken pox Joint implants/screws Transfusions Surgical History Surgery Date(Month/Year) knee surgery, left / complication: blood clot/DVT 2006 colon cancer 2013 portacath placement 2012 Ingrown Toe Nail 2000
[2025-03-19 07:31] VITALS: BP 134/80; PULSE 87; O2SAT 98; BMI 31.9
== END 2025-03-19 07:54 | disposition home or self-care (01) ==
LOC: HO.RHE 07:22
PROVIDERS: PCP Physician Assistant; Visit Provider Student in an Organized Health Care Education/Training Program
DX: M70.61 Trochanteric bursitis, right hip (principal)
CPT/HCPCS: 99213

== ENCOUNTER → 2025-03-19 07:21 | Outpatient (BNVA) | payer OTHER, SELFPAY | PROVIDERS: PCP Physician Assistant; Visit Provider Student in an Organized Health Care Education/Training Program ==

== ENCOUNTER 2025-03-22 07:24 | Outpatient (REF) | payer OTHER, SELFPAY ==
--- NOTE | ~2025-03-22 | MR_ITS ---
CLINICAL HISTORY: M70.61 - Trochanteric bursitis, right hip MR right hip without gadolinium Comparison: DX/SR - XR HIP RT MIN 2V - 08/09/24 08:45 EDT Findings: No fracture or dislocation. Lumbosacral degenerative changes, more conspicuous on the left. Mild bilateral hip osteoarthritis. No fracture or femoral head avascular necrosis. No discrete right acetabular labral tear. No significant hip joint effusion. Abnormal edema and fluid signal at the right greater trochanter at the insertion of the gluteus medius and minimus tendons. Mild tendinopathy involving the origin of the biceps femoris and semitendinosis. Muscles and tendons about the right hip are otherwise intact. No iliopsoas bursitis. IMPRESSION: 1. Partial tearing of the right gluteus minimus and medius insertions compatible with the clinical presentation of trochanteric bursitis. 2. Mild bilateral hip osteoarthritis. This document has been electronically signed by: Cosme Ogden DO on 03/22/2025 12:52:01
--- OUTSIDE RECORDS SUMMARY | 2025-03-22 07:27 | XMS_ITS | Patient Health Record ---
Author Organization [facility] Address [address] [place] [address] Care Team Providers Care Logging Crew Supervisor Name Role Phone Holly SMITH, Ailyn Primary Care Provider Unavail able Migdalia Luis Unavailable [phone] Allergies Allergen (clinical drug ingredient) Drug/Non Drug [...] Coverage End Date Blue Benefits [address] [address] [place] [address] [id number] Katlyn Shaikh Self - patient is the insured Medical (General) History Medical History History ICD Code Anemia asthma Cancer Kidney disease Numbness Neuropathy Sciatica Chicken pox Joint implants/screws Transfusions Surgical History Surgery Date(Month/Year) knee surgery, left / complication: blood clot/DVT 2006 colon cancer 2013 portacath placement 2012 Ingrown Toe Nail 2000
--- OUTSIDE RECORDS SUMMARY | 2025-03-22 07:27 | XMS_ITS | Data Portability ---
Author Organization [facility] [address] Address [address] [place] [address] Care Team Providers Care Contact Acid Plant Operator Name Role Phone MICHAEL INTERIANO Primary Care Provider Assessment No assessment recorded. Plan of Treatment Reminders Order Date Submit Date Provider Last Modified By Organization Details Last Modified Time Details Appointments None recorded. Lab None recorded. Referral None recorded. Procedures None recorded. Surgeries None recorded. Imaging None recorded. Medication Orders clobetasol 0.05 % topical ointment 2023 024 [facility]/Pharmacy #[id number], [address] [place], [address], 16:28:28 Patient TargetsNo targets recorded. Patient Instructions Encounter Date Encounter Id Patient Instructions Last Modified By Organization Details Last Modified Time 10/18/2024 [id number] dermatitis: care instructions [email or web address] Not available 10/18/2024 16:28:26 Reason for Referral None Reported. Problems Name Problem SNOMED Code Status Onset Date Resolution Date Notes Provider Name and Address Organization Details Recorded Time Depressiv e disorder 75468879 Active CONRAD Bullock [facility] 4 16:18:56 Malignant tumor of colon 447914513 Completed 202310/18/2024 Removal Reason: surgery CONRAD Keane [facility] [place], [address] , CONRAD Dumont [facility] 4 16:27:43 Problem Notes None recorded. Medical Equipment None Reported. Allergies Allergen ID Allergen Name Allergen Category Reaction Reaction Severity Criticality Documentation Date Start Date Code Code System Note Provider Name and Address Organization Details Recorded Time 1604406 Substance with sulfonami de structure and antibacte rial mechanism of action (substanc e) medicatio n hives Not available Not available 10/18/2024 90541 8003 SNOMED Ольга Olmedo null, [place] - [facility] 4 16:16:05 9911931 Augmentin medicatio n abdominal pain Not available Not available 10/18/2024 97138 2 RxNorm Ольга Olmedo null, PA - [...] Updated DateTime 4 175.26 cm 29.5 kg/m2 22068.4 7 g 98 [degF] 18 /min 77 /min 98 % 98 % 138 mm[Hg] 92 mm[Hg] Ольга Honorio PA - [facility] 16:22:06 Social History Question Answer Notes LastModified by [employer] Details LastModified Time Tobacco Smoking Status Current Every Day Smoker vape Ольга cooper, [place] - [facility] 10/18/2024 16:20:08 Have You Had A Flu Shot This Season? Yes [email or web address] Information not available 10/18/2024 Have You Recently Traveled Abroad? No [email or web address] Information not available 10/18/2024 Sex: Unknown Functional Status Question Answer Note LastModified by [employer] Details LastModified Time How many times per week do you consume alcohol? 3-4 times per week [email or web address] Information not available 10/18/2024 Do you use any illicit or recreational drugs? No [email or web address] Information not available 10/18/2024 What is your level of alcohol consumption? Occasional [email or web address] Information not available 10/18/2024 Mental Status None recorded. Family History Relationship Description Onset Age of this Age Resolved Age Notes LastModified by Organization Details LastModified Time Father No current problems or disability [email or web address] Not available 10/18 16:19:00 Mother No current problems or disability [email or web address] Not available 10/18 16:19:00 Medical History No medical history recorded. Gynecological HistoryNo gynecological history recorded. Obstetrics History GPAL:G 0 P 0 0 0 0 Past Encounters Encounter ID Performer Location Encounter Start Date Encounter Closed Date Diagnosis/Indication Diagnosis SNOMED-CT Code Diagnosis ICD10 Code Diagnosis Note [id number] _[address] [place] [address] 10/10/2020 16:22:23 10/10/2020 18:18:23 [id number] CONRAD Keane [address] [facility] [place] [id number] 10/18/2024 16:09:58 10/18/2024 16:29:23 Contact dermatitis [id number] L25.9 Based on your presentati on and [...] Name 10/18/2024 1 [employer] [facility] [id number] Katlyn Shaikh [id number] 782 Katlyn Shaikh Notes Date Note Type Note Provider Name and Address Organization Details Recorded Time 10/18/2024 text/html 49 y/o female here with several red, irritated spots on her belly button, upper back, and L leg. Has happened in the past, wants to make sure it isn't ringworm CONRAD Keane [address] [place], [address], [place] - [facility] 10/18/2024 16:31:25 OBGyn Episode No OBEpisode recorded.
== END 2025-03-22 07:25 | disposition home or self-care (01) ==
LOC: HO.MRI 07:24
PROVIDERS: PCP Internal Medicine; Visit Provider Internal Medicine
DX: M70.61 Trochanteric bursitis, right hip (principal)
CPT/HCPCS: 73721

== ENCOUNTER → 2025-03-22 07:28 | Outpatient (BNV) | payer OTHER, SELFPAY | PROVIDERS: PCP Internal Medicine; Visit Provider Radiology Diagnostic Radiology | DX: M70.61 Trochanteric bursitis, right hip (principal) | CPT/HCPCS: 73721 ==

== ENCOUNTER 2025-04-08 14:04 | Outpatient (AMB) | payer OTHER, SELFPAY ==
--- NOTE | 2025-04-08 14:06 | A.OFFVIS_ITS ---
Vital Signs 04/08/25 14:12 Height 5 ft 9 in Weight 216 lb BMI 31.9 Intake Visit Reasons: OV- Trochanteric bursitis, right hip Intake Note: Katlyn is a 49 year old female who presents today for a follow up of right hip pain, last injection on 12/20/24. Patient was seen by her PCP who ordered an MRI. Patient reports injection did not really help, stating last only a couple of days. Her PCP has her set up with an appointment with physical therapy for an assessment on Tuesday. IMPRESSION: 1. Partial tearing of the right gluteus minimus and medius insertions compatible with the clinical presentation of trochanteric bursitis. 2. Mild bilateral hip osteoarthritis. Allergies shrimp [SHRIMP] Allergy (Severe, Verified 04/08/25 14:12) Anaphylaxis latex [LATEX] Allergy (Intermediate, Verified 04/08/25 14:12) RASH Penicillins Allergy (Intermediate, Verified 04/08/25 14:12) Itching Sulfa (Sulfonamide Antibiotics) [SULFA (SULFONAMIDE ANTIBIOTICS)] Allergy (Intermediate, Verified 04/08/25 14:12) HIVES levofloxacin [From LEVAQUIN] Adverse Reaction (Severe, Verified 04/08/25 14:12) AGITATION morphine [MORPHINE] Adverse Reaction (Severe, Verified 04/08/25 14:12) HEADACHES adhesives Allergy (Intermediate, Uncoded 04/08/25 14:12) rash Medication List - Last Reconciled 04/08/25 by Africa Choi PA-C albuterol sulfate 90 mcg/actuation 1 inh inhalation QID PRN azelastine 0.05% 1 drp ophthalmic (eye) BID PRN bupropion HCl XL 300 mg PO QAM 90 days CPAP (CPAP Machine/Device) As directed fexofenadine (Keeley Allergy) 180 mg PO DAILY levonorgestrel (Mirena) 20 mcg intrauterine DIRECTED omeprazole 20 mg PO DAILY oxymetazoline 0.05% (Afrin (oxymetazoline)) 2 sprays intranasal Q12H PRN rivaroxaban (Xarelto) 10 mg PO DAILY PRN HPI HPI OV- Trochanteric bursitis, right hip: Details: 49-year-old female returns to the office today for a follow-up of her right hip. She had seen me in the past for right hip and had an injection which she states was somewhat helpful. Her primary care provider did order an MRI which showed some tendinitis and mild arthritis. She has a physical therapy appointment to begin this Tuesday. [facility] Medical History Family history of breast cancer Physical exam Sinus infection Ovarian cyst GERD (gastroesophageal reflux disease) IUD (intrauterine device) in place History of blood transfusion Medullary sponge kidney Asthma History of seizure Seasonal allergies RADHA (obstructive sleep apnea) History of chemotherapy (~2012) Hx of radiation therapy (~2012) Recent bereavement Left arm pain Neck pain Retrognathia Vaginal discharge Rash Subconjunctival hemorrhage of left eye Upper respiratory tract infection Hemorrhoids with complication Myalgia Right wrist pain Right shoulder pain Screen for STD (sexually transmitted disease) Retained tampon COVID-19 Conjunctivitis Well woman exam Breast pain Shortness of breath PVC (premature ventricular contraction) PAC (premature atrial contraction) Colon cancer (~2012) DVT (deep venous thrombosis) Heart palpitations Shortness of breath Surgical History History of kidney surgery Hx of colonoscopy History of esophagogastroduodenoscopy (EGD) H/O knee surgery History of colon surgery Family History Mother High blood pressure COPD (chronic obstructive pulmonary disease) History of four vessel coronary artery bypass graft Mental health disorder Father High blood pressure Cancer Maternal Grandfather Colon cancer Paternal Aunt Colon cancer Social History Housing: House Are you a primary health care analyst to a significant other at home: No Do you presently have visiting nurse or other home services: No Alcohol intake: current Alcohol intake frequency: a few times a month Alcohol type: wine Patient Tobacco Use Status: Former Tobacco user Tobacco use type: Smokeless Tobacco e-Cigarette/Vaping Use: Currently Using Second Hand Smoke Exposure: Yes service: No Current occupational status: employed 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 Current occupational exposures/hazards: No Cognitive needs: No Hearing needs: No Vision needs: No Female Reproductive History Menstrual Age of Menarche: 10 Review of Systems Const All systems reviewed & are unremarkable except as noted in HPI and below Physical Exam Vital Signs: BMI result Body Mass Index 31.9 Extrem Other: Right hip normal to inspection. No pain with ROM of the hip. Pain along the greater trochanter. No pain with hip flexion or abduction.There is tenderness along the si joint, Negative SLR. NVI. Office Procedures AMB Joint Injection/Aspiration Joint Injection/Aspiration Details: right troch bursa Prep: site was prepped using aseptic technique, ethochloride spray was applied and injection warnings given Injected: 80 mg of, DepoMedrol, with 8 mL of and 1% plain lidocaine Procedure: The patient tolerated the procedure well and there was some relief with the local anesthesia Coding 75582 - Glenohumeral/Tronchanteric Bursa/Intraarticular Procedure code (CPT) selection complete Assessment & Plan Assessment & Plan (1) Trochanteric bursitis, right hip: Code(s): M70.61 - Trochanteric bursitis, right hip Category: Medical Plan: We discussed options today which include continuing with physical therapy to work on strengthening and conditioning exercises. I did explain that this is typically an overuse under condition type injury and the therapy should help overall but she will need to continue with home exercises. We did discuss repeat injection which she would like to proceed with. Procedure was tolerated well. She will continue with activities as tolerated and if there is any concerns she will contact our office otherwise follow up as needed. Orders: Orders PT Evaluation and Treatment Today M70.61 - Trochanteric bursitis, right hip Coding Level of Care Code Est Pt Level 3 (06248) Complex EM visit Add On G2211 Diagnoses Trochanteric bursitis, right hip M70.61 CPT Codes Coding - Joint 7: 49565 - Glenohumeral/Tronchanteric Bursa/Intraarticular ([id number])
[2025-04-08 14:12] VITALS: BMI 31.9
--- OUTSIDE RECORDS SUMMARY | 2025-04-08 15:22 | XMS_ITS | Data Portability ---
Author Organization [facility] Address [address] [place] [id number] Care Team Providers Care Deputy Sheriff Civil Division Name Role Phone MICHAEL INTERIANO Primary Care Provider Assessment No assessment recorded. Plan of Treatment Reminders Order Date Submit Date Provider Last Modified By Organization Details Last Modified Time Details Appointments None recorded. Lab None recorded. Referral None recorded. Procedures None recorded. Surgeries None recorded. Imaging None recorded. Medication Orders clobetasol 0.05 % topical ointment 2023 024 [facility]/Pharmacy #[id number], [address] [place], [address], 16:28:28 Patient TargetsNo targets recorded. Patient Instructions Encounter Date Encounter Id Patient Instructions Last Modified By Organization Details Last Modified Time 10/18/2024 [id number] dermatitis: care instructions [email or web address] Not available 10/18/2024 16:28:26 Reason for Referral None Reported. Problems Name Problem SNOMED Code Status Onset Date Resolution Date Notes Provider Name and Address Organization Details Recorded Time Depressiv e disorder 29019234 Active CONRAD Bullock [facility] 4 16:18:56 Malignant tumor of colon 069428812 Completed 202310/18/2024 Removal Reason: surgery CONRAD Keane [facility] [place], [address] , CONRAD Dumont [facility] 16:27:43 Problem Notes None recorded. Medical Equipment None Reported. Allergies Allergen ID Allergen Name Allergen Category Reaction Reaction Severity Criticality Documentation Date Start Date Code Code System Note Provider Name and Address Organization Details Recorded Time 8489712 Substance with sulfonami de structure and antibacte rial mechanism of action (substanc e) medicatio n hives Not available Not available 10/18/2024 21363 8003 SNOMED Ольга Olmedo null, [place] - [facility] 4 16:16:05 4025450 Augmentin medicatio n abdominal pain Not available Not available 10/18/2024 56031 2 RxNorm Ольга Olmedo null, PA - [...] Updated DateTime 4 175.26 cm 29.5 kg/m2 30233.4 7 g 98 [degF] 18 /min 77 /min 98 % 98 % 138 mm[Hg] 92 mm[Hg] Ольга Honorio PA - [employer] [facility] 16:22:06 Social History Question Answer Notes LastModified by [email or web address] Details LastModified Time Tobacco Smoking Status Current Every Day Smoker vape Ольга cooper, [place] - [facility] 10/18/2024 16:20:08 Have You Had A Flu Shot This Season? Yes [email or web address] Information not available 10/18/2024 Have You Recently Traveled Abroad? No [email or web address] Information not available 10/18/2024 Sex: Unknown Functional Status Question Answer Note LastModified by [email or web address] Details LastModified Time How many times per week do you consume alcohol? 3-4 times per week [email or web address] Information not available 10/18/2024 Do you use any illicit or recreational drugs? No Information not available 10/18/2024 What is your level of alcohol consumption? Occasional [email or web address] Information not available 10/18/2024 Mental Status None recorded. Family History Relationship Description Onset Age of this Age Resolved Age Notes LastModified by Organization Details LastModified Time Father No current problems or disability [email or web address] Not available 10/18 16:19:00 Mother No current problems or disability [email or web address] Not available 10/18 16:19:00 Medical History No medical history recorded. Gynecological HistoryNo gynecological history recorded. Obstetrics History GPAL:G 0 P 0 0 0 0 Past Encounters Encounter ID Performer Location Encounter Start Date Encounter Closed Date Diagnosis/Indication Diagnosis SNOMED-CT Code Diagnosis ICD10 Code Diagnosis Note [id number] [address] [place] [address] 10/10/2020 16:22:23 10/10/2020 18:18:23 [id number] CONRAD Keane [address] [facility] [place] [address] 10/18/2024 16:09:58 10/18/2024 16:29:23 Contact dermatitis [id number] L25.9 Based on your presentati on and [...] Name 10/18/2024 1 [facility] [id number] Katlyn Shaikh [id number] 782 Katlyn Shaikh Notes Date Note Type Note Provider Name and Address Organization Details Recorded Time 10/18/2024 text/html 49 y/o female here with several red, irritated spots on her belly button, upper back, and L leg. Has happened in the past, wants to make sure it isn't ringworm CONRAD Keane [address] [place], [address], [place] - [facility] 10/18/2024 16:31:25 OBGyn Episode No OBEpisode recorded.
== END 2025-04-08 15:25 | disposition home or self-care (01) ==
LOC: HO.HOS 14:05
PROVIDERS: PCP Internal Medicine; Visit Provider Physician Assistant
DX: M70.61 Trochanteric bursitis, right hip (principal)
CPT/HCPCS: 20610; 99213

== ENCOUNTER → 2025-04-08 14:04 | Outpatient (BNVA) | payer OTHER, SELFPAY | PROVIDERS: PCP Internal Medicine; Visit Provider Physician Assistant | DX: M70.61 Trochanteric bursitis, right hip (principal) | CPT/HCPCS: 20610; J1010; J2003 ==

== ENCOUNTER 2025-04-24 09:09 | Outpatient (AMB) | payer OTHER, SELFPAY ==
--- NOTE | 2025-04-24 09:11 | A.OFFVIS_ITS ---
Vital Signs 04/24/25 09:16 Height 5 ft 9 in Weight 214 lb BMI 31.6 BP 131/70 Blood Pressure Location Rt brachial Position Sitting Pulse 82 Intake Visit Reasons: *Genetic testing* results Intake Note: Patient here to discuss genetic testing results. Hrbp Required: No Accompanied by: Self / Same As Patient Allergies shrimp (SHRIMP) Allergy (Severe, Verified 04/24/25 09:12) Anaphylaxis latex (LATEX) Allergy (Intermediate, Verified 04/24/25 09:12) RASH Penicillins Allergy (Intermediate, Verified 04/24/25 09:12) Itching Sulfa (Sulfonamide Antibiotics) (SULFA (SULFONAMIDE ANTIBIOTICS)) Allergy (Intermediate, Verified 04/24/25 09:12) HIVES levofloxacin (From LEVAQUIN) Adverse Reaction (Severe, Verified 04/24/25 09:12) AGITATION morphine (MORPHINE) Adverse Reaction (Severe, Verified 04/24/25 09:12) HEADACHES adhesives Allergy (Intermediate, Uncoded 04/24/25 09:12) rash Medication List - Last Reconciled 04/24/25 by Ben Dooley MD albuterol sulfate 90 mcg/actuation 1 inh inhalation QID PRN azelastine 0.05% 1 drp ophthalmic (eye) BID PRN bupropion HCl XL 300 mg PO QAM 90 days CPAP (CPAP Machine/Device) As directed fexofenadine (Keeley Allergy) 180 mg PO DAILY levonorgestrel (Mirena) 20 mcg intrauterine DIRECTED omeprazole 20 mg PO DAILY oxymetazoline 0.05% (Afrin (oxymetazoline)) 2 sprays intranasal Q12H PRN rivaroxaban (Xarelto) 10 mg PO DAILY PRN HPI HPI *Genetic testing* results: Details: She is here for follow-up for genetic testing results. I had sent her for this in view of her personal history of colon cancer at age of 36. She says she has no new complaints currently. [facility] Medical History (Updated 04/24/25 @ 09:25 by Ben Dooley MD) Personal history of colon cancer Family history of breast cancer Physical exam Sinus infection Ovarian cyst GERD (gastroesophageal reflux disease) IUD (intrauterine device) in place History of blood transfusion Medullary sponge kidney Asthma History of seizure Seasonal allergies RADHA (obstructive sleep apnea) History of chemotherapy (~2012) Hx of radiation therapy (~2012) Recent bereavement Left arm pain Neck pain Retrognathia Vaginal discharge Rash Subconjunctival hemorrhage of left eye Upper respiratory tract infection Hemorrhoids with complication Myalgia Right wrist pain Right shoulder pain Screen for STD (sexually transmitted disease) Retained tampon COVID-19 Conjunctivitis Well woman exam Breast pain Shortness of breath PVC (premature ventricular contraction) PAC (premature atrial contraction) Colon cancer (~2012) DVT (deep venous thrombosis) Heart palpitations Shortness of breath Surgical History History of kidney surgery Hx of colonoscopy History of esophagogastroduodenoscopy (EGD) H/O knee surgery History of colon surgery Family History Mother High blood pressure COPD (chronic obstructive pulmonary disease) History of four vessel coronary artery bypass graft Mental health disorder Father High blood pressure Cancer Maternal Grandfather Colon cancer Paternal Aunt Colon cancer Social History Housing: House Are you a primary career based intervention coordinator to a significant other at home: No Do you presently have visiting nurse or other home services: No Alcohol intake: current Alcohol intake frequency: a few times a month Alcohol type: wine Patient Tobacco Use Status: Former Tobacco user Tobacco use type: Smokeless Tobacco e-Cigarette/Vaping Use: Currently Using Second Hand Smoke Exposure: Yes service: No Current occupational status: employed 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 Current occupational exposures/hazards: No Cognitive needs: No Hearing needs: No Vision needs: No Female Reproductive History Menstrual Age of Menarche: 10 Review of Systems Const Denies chills and Denies fever(s) Card Denies chest pain GI Denies abdominal pain Musc Details: Hip pain Physical Exam Vital Signs: Last Vital Signs Pulse 82 04/24/25 09:16 BP 131/70 04/24/25 09:16 BMI result Body Mass Index 31.6 Const General: comfortable and no acute distress Resp Effort & Inspection: normal respiratory effort Cardio Rate: regular rate Assessment & Plan Assessment & Plan (1) Personal history of colon cancer: Code(s): Z85.038 - Personal history of other malignant neoplasm of large intestine Category: Medical Plan: I reviewed with her the results of her genetic testing with [employer]. This does not show any significant genetic mutation. I reminded her to continue with regular screening colonoscopies at least once every 5 years She understands the plan. Coding Level of Care Code Est Pt Level 2 (12593) Diagnoses Personal history of colon cancer Z85.038
[2025-04-24 09:16] VITALS: BP 131/70; PULSE 82; BMI 31.6
--- OUTSIDE RECORDS SUMMARY | 2025-04-24 09:55 | XMS_ITS | Data Portability ---
Author Organization [facility] [address] Address [address] [place] [address] Care Team Providers Care Bookstore Manager Name Role Phone MICHAEL INTERIANO Primary Care Provider [phone] Assessment No assessment recorded. Plan of Treatment Reminders Order Date Submit Date Provider Last Modified By Organization Details Last Modified Time Details Appointments None recorded. Lab None recorded. Referral None recorded. Procedures None recorded. Surgeries None recorded. Imaging None recorded. Medication Orders clobetasol 0.05 % topical ointment 2023 024 [facility]/Pharmacy #[id number], [address] [place], [address], 16:28:28 Patient TargetsNo targets recorded. Patient Instructions Encounter Date Encounter Id Patient Instructions Last Modified By Organization Details Last Modified Time 10/18/2024 [id number] dermatitis: care instructions [email or web address] Not available 10/18/2024 16:28:26 Reason for Referral None Reported. Problems Name Problem SNOMED Code Status Onset Date Resolution Date Notes Provider Name and Address Organization Details Recorded Time Depressiv e disorder 84177618 Active CONRAD Bullock [facility] 4 16:18:56 Malignant tumor of colon 665282578 Completed 202310/18/2024 Removal Reason: surgery CONRAD Keane [facility] [place], [address] , CONRAD Dumont [facility] 16:27:43 Problem Notes None recorded. Medical Equipment None Reported. Allergies Allergen ID Allergen Name Allergen Category Reaction Reaction Severity Criticality Documentation Date Start Date Code Code System Note Provider Name and Address Organization Details Recorded Time 0125100 Substance with sulfonami de structure and antibacte rial mechanism of action (substanc e) medicatio n hives Not available Not available 10/18/2024 22484 8003 SNOMED Ольга Olmedo null, [place] - [facility] 4 16:16:05 6519017 Augmentin medicatio n abdominal pain Not available Not available 10/18/2024 57848 2 RxNorm Ольга Olmedo null, PA - [...] Updated DateTime 4 175.26 cm 29.5 kg/m2 99445.4 7 g 98 [degF] 18 /min 77 /min 98 % 98 % 138 mm[Hg] 92 mm[Hg] Ольга Honorio PA - [employer] [facility] 16:22:06 Social History Question Answer Notes LastModified by RSens Details LastModified Time Tobacco Smoking Status Current Every Day Smoker vape Ольга cooper, [place] - [facility] 10/18/2024 16:20:08 Have You Had A Flu Shot This Season? Yes Information not available 10/18/2024 Have You Recently Traveled Abroad? No [email or web address] Information not available 10/18/2024 Sex: Unknown Functional Status Question Answer Note LastModified by RSens Details LastModified Time How many times per week do you consume alcohol? 3-4 times per week [email or web address] Information not available 10/18/2024 Do you use any illicit or recreational drugs? No [email or web address] Information not available 10/18/2024 What is your level of alcohol consumption? Occasional [email or web address] Information not available 10/18/2024 Mental Status None recorded. Family History Relationship Description Onset Age of this Age Resolved Age Notes LastModified by Organization Details LastModified Time Father No current problems or disability [email or web address] Not available 10/18 16:19:00 Mother No current problems or disability [email or web address] Not available 10/18 16:19:00 Medical History No medical history recorded. Gynecological HistoryNo gynecological history recorded. Obstetrics History GPAL:G 0 P 0 0 0 0 Past Encounters Encounter ID Performer Location Encounter Start Date Encounter Closed Date Diagnosis/Indication Diagnosis SNOMED-CT Code Diagnosis ICD10 Code Diagnosis Note [id number] _[address] [place] [address] 10/10/2020 16:22:23 10/10/2020 18:18:23 [id number] CONRAD Keane [address] [facility] [place] [address] 10/18/2024 16:09:58 10/18/2024 16:29:23 Contact dermatitis [id number] L25.9 Based on your presentati on and [...] Name 10/18/2024 1 [facility] [address] Katlyn Shaikh [id number] 782 Katlyn Shaikh Notes Date Note Type Note Provider Name and Address Organization Details Recorded Time 10/18/2024 text/html 49 y/o female here with several red, irritated spots on her belly button, upper back, and L leg. Has happened in the past, wants to make sure it isn't ringworm CONRAD Keane [address] [place], [address], [place] - [facility] 10/18/2024 16:31:25 OBGyn Episode No OBEpisode recorded.
== END 2025-04-24 09:25 | disposition home or self-care (01) ==
LOC: HO.HGS 09:10
PROVIDERS: PCP Physician Assistant; Visit Provider Surgery
DX: Z85.038 Personal history of other malignant neoplasm of large intestine (principal)
CPT/HCPCS: 99212

== ENCOUNTER 2025-05-29 09:57 | Outpatient (RCR) | payer OTHER, SELFPAY ==
--- NOTE | 2025-04-12 11:48 | MHC.PT.EP ---
[facility] [place] Office [place] Office [place] Office [address] Rodrick Harris [address] [phone] F: [phone] F: [phone] F: [phone] F: [phone] Physical Therapy Plan of Care Date of Evaluation: 04/12/25 Date of Surgery: NA Diagnosis: Trochanteric bursitis, R hip Assessment: Katlyn is a 49 year old female who is referred to PT for trochanteric bursitis of R hip . She reports of having gradual onset of pain in R hip about 7 months back. Due very intense pain she has had 2 cortisone shots- 4 months and 4 days back. The first shot did not help her much however she has more relief after her most recent shot. On PT examination she presented with TTP over R greater trochanter, 5/10 pain in R hip with standing, walking and sitting for more than 15 minutes, had good R LE ROM, but strength in R LE, altered posture, balance and gait. She is independent with all ADLs but takes frequent seated rest breaks due to pain. She works in [email or web address]- at [employer]- standing most of the day and enjoys going for walks. She would benefit from skilled PT to address the aforementioned impairments and improve tolerance to functional activities. Frequency and Duration: The patient will be seen 2/week for 5 weeks Short Term Goals: 1. Pt will have 50% decrease in pain which will enable her to sit for 30 minutes without pain in 2 weeks 2. Pt will demonstrate improved gait pattern- decrease pronation in B LE during mid stance phase which will decrease pain during walking by 50% in 3 weeks Logistics Account Manager Goals: 1. Pt will demonstrate an increase in muscle strength by 1 grade which will enable her to tolerate standing and walking and do all ADLS without pain in 5 weeks 2. Pt will be independent with all HEP for symptom management and maintenance following d/c in 5 weeks. Treatment Plan: Modalities to reduce pain, spasms and effusion. Manual therapy to restore motion and function. Therapeutic exercise to improve strength and flexibility. Neuromuscular re-education for posture and balance. Therapeutic activities to return to functional activities of daily living. Electronically signed by: Pari Amato PT DPT Please sign and return to therapist. Thank you for your referral.
--- NOTE | 2025-06-12 14:39 | MHC.PT.DC ---
[facility] [place] Office [place] Office [place] Office [address] Rodrick Harris [address] [phone] F: [phone] F: [phone] F: [phone] F: [phone] Physical Therapy Discharge Report Diagnosis: Trochanteric bursitis, R hip Date of Surgery: NA Date of Evaluation: 04/12/25 Date of Discharge: 06/12/25 Treatments to Date: 9 Cancellations to Date: 0 No Shows to Date: 0 Discharge Status: Achieved Goals Improved Function Independent with HEP Discharge Summary: Katlyn has completed 9 PT visits and has achieved all goals set for her. She is independent with all HEP and has no pain. She returned to PLOF as well. She is therefore being d/c from PT today. Katlyn is in agreement with the plan. I reviewed all HEP with her as well. Electronically signed by: Pari Amato, PT DPT Please sign and return to therapist. Thank you for your referral.
== END 2025-06-12 14:39 | disposition home or self-care (01) ==
LOC: HO.PT 09:57
PROVIDERS: Absent Provider Physician Assistant; PCP Internal Medicine; Visit Provider Internal Medicine
DX: M70.61 Trochanteric bursitis, right hip (principal)
CPT/HCPCS: 97033; 97110; 97140; 97161; 97530

== ENCOUNTER 2025-06-20 07:38 | Outpatient (AMB) | payer OTHER, SELFPAY ==
--- OUTSIDE RECORDS SUMMARY | 2025-06-20 07:40 | XMS_ITS ---
Author Name [facility] Organization Unknown Encounters Encounter Type Encounter Reason Primary Diagnosis Location Date Ambulatory [facility]. ([facility] 10/18/2024
--- OUTSIDE RECORDS SUMMARY | 2025-06-20 07:40 | XMS_ITS | Encounter Summary ---
Author Organization [facility] Address [address] [facility] [address] [place] [address] Phone Care Team Providers Care Heel Cutter Name Role Phone Paul Watt DO Primary Care Provider [phone] Paul Watt DO Unavailable Karlie Wright MD, MPH Primary Care Provid er Karlie Wright MD, MPH Primary Care Provid er Paul Watt DO Unavailable Karlie Wright MD, MPH Unavailable +- [phone] Pcp, Unknown Primary Care Provider Unavailabl e Ailyn Fishman MD Primary Care Provid er Encounter Details Date Type Department Care Team (Late st Contact Info) Description 04/17/2018 Procedure Pass [facility] Endoscopy Admitting Dept Virtual Department [address] [place] [address] Social History Tobacco Use Types Packs/Day Years Used Date Smoking Tobacco: Former Smokeless Tobacco: Never Alcohol Use Standard Drinks/Week Comments Yes 0 (1 standard drink = 0.6 oz pur e alcohol) rare Comments No Sex and Gender Information Value Date Recorded Sex Assigned at Female 11/14/2017 9:38 AM EST Legal Sex Female 9:30 PM EDT Gender Identity Female 11/14/2017 9:38 AM EST Sexual Orientation Straight 11/14/2017 9: 38 AM EST 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 PCP - General Family Medicine 08/12/18 09/10/18 Karlie Wright MD, MPH [address] [place] [address] [email or web address] PCP - General Family Medicine 09/11/18 06/21/21 Pcp, Unknown PCP - General 06/22/21 12/10/23 Ailyn Fishman MD [address] [place] [address] PCP - General Internal Medicine 12/11/23 Paul Watt DO [address] [place] [address] [email or web address] Insurance Assigned Provider 02/04/18 08/12/18 Paul Watt DO [address] [place] [phone] Insurance Assigned Provider 04/08/19 06/12/20 Karlie Wright MD, MPH [address] [address] [email or web address] Insurance Assigned Provider 05/16/21 09/12/21 documented as of this encounter Additional Source Comments The information contained in this document represents components of the legal health record. It is not the complete legal health record.[facility]
--- OUTSIDE RECORDS SUMMARY | 2025-06-20 07:41 | XMS_ITS | Patient Health Record ---
Author [facility] Address [address] [place] [address] Care Team Providers Care Manager Workers Compensation Name Role Phone Holly SMITH, Ailyn Primary Care Provider Unavail able Migdalia Luis Unavailable [phone] Allergies Allergen (clinical drug ingredient) Drug/Non Drug [...] ffected area Externally to feet Twice a day; Duration: 30 days Active Keeley Active LamISIL 250 MG 1 tablet Orally Once a day; Duration: 30 days Active Omeprazole 2 MG/ML 5 ml 30 minutes befo re morning meal Orally Once a day; Duration: 30 day(s) Active Immunizations Vaccine Route Administration [...] Coverage End Date Blue Benefits [address] [address] [place] [address] [id number] Katlyn Shaikh Self - patient is the insured Medical (General) History Medical History History ICD Code Anemia asthma Cancer Kidney disease Numbness Neuropathy Sciatica Chicken pox Joint implants/screws Transfusions Surgical History Surgery Date(Month/Year) knee surgery, left / complication: blood clot/DVT 2006 colon cancer 2013 portacath placement 2012 Ingrown Toe Nail 2000
--- NOTE | 2025-06-20 07:43 | MHC.OFFVIS ---
Vital Signs 06/20/25 07:46 Height 5 ft 9 in Weight 214 lb BMI 31.6 Intake Visit Reasons: pelvic pain Public Relations Senior Associate Required: No Information Interpreted: non-clinical & clinical Ground Hand: Ground Hand Present (Andreia Plummer BOGDAN) Accompanied by: Self / Same As Patient Allergies shrimp (SHRIMP) Allergy (Severe, Verified 06/20/25 07:47) Anaphylaxis latex (LATEX) Allergy (Intermediate, Verified 06/20/25 07:47) RASH Penicillins Allergy (Intermediate, Verified 06/20/25 07:47) Itching Sulfa (Sulfonamide Antibiotics) (SULFA (SULFONAMIDE ANTIBIOTICS)) Allergy (Intermediate, Verified 06/20/25 07:47) HIVES levofloxacin (From LEVAQUIN) Adverse Reaction (Severe, Verified 06/20/25 07:47) AGITATION morphine (MORPHINE) Adverse Reaction (Severe, Verified 06/20/25 07:47) HEADACHES adhesives Allergy (Intermediate, Uncoded 06/20/25 07:47) rash Is last menstrual period known: No (mirena) HPI Comments Details: presenting complaining of irregular menstrual cycles associated with pelvic cramping. The patient has Mirena IUD [facility] Medical History Personal history of colon cancer Family history of breast cancer Physical exam Sinus infection Ovarian cyst GERD (gastroesophageal reflux disease) IUD (intrauterine device) in place History of blood transfusion Medullary sponge kidney Asthma History of seizure Seasonal allergies RADHA (obstructive sleep apnea) History of chemotherapy (~2012) Hx of radiation therapy (~2012) Recent bereavement Left arm pain Neck pain Retrognathia Vaginal discharge Rash Subconjunctival hemorrhage of left eye Upper respiratory tract infection Hemorrhoids with complication Myalgia Right wrist pain Right shoulder pain Screen for STD (sexually transmitted disease) Retained tampon COVID-19 Conjunctivitis Well woman exam Breast pain Shortness of breath PVC (premature ventricular contraction) PAC (premature atrial contraction) Colon cancer (~2012) DVT (deep venous thrombosis) Heart palpitations Shortness of breath Surgical History History of kidney surgery Hx of colonoscopy History of esophagogastroduodenoscopy (EGD) H/O knee surgery History of colon surgery Family History Mother High blood pressure COPD (chronic obstructive pulmonary disease) History of four vessel coronary artery bypass graft Mental health disorder Father High blood pressure Cancer Maternal Grandfather Colon cancer Paternal Aunt Colon cancer Social History Housing: House Are you a primary skin care specialist to a significant other at home: No Do you presently have visiting nurse or other home services: No Alcohol intake: current Alcohol intake frequency: a few times a month Alcohol type: wine Patient Tobacco Use Status: Former Tobacco user Tobacco use type: Smokeless Tobacco e-Cigarette/Vaping Use: Currently Using Second Hand Smoke Exposure: Yes service: No Current occupational status: employed 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 Current occupational exposures/hazards: No Cognitive needs: No Hearing needs: No Vision needs: No Female Reproductive History Menstrual Age of Menarche: 10 Review of Systems Const All systems reviewed & are unremarkable except as noted in HPI and below Physical Exam Vital Signs: BMI result Body Mass Index 31.6 General: Yes no CVA tenderness External Female Exam: normal external appearance and normal appearance of the urethra Speculum Exam - Vagina: normal appearance of the vagina, normal palpation, no lesions and no masses Speculum Exam - Cervix: normal appearance of the cervix, normal palpation, no lesions, no masses, nontender and Other cervical findings present (IUD string in place) Bimanual exam- vagina & uterus: normal bimanual exam, normal palpation, uterine size normal, normal palpation, uterine shape normal, No Cervical tenderness present and non-tender Bimanual Exam- Adnexa, other: normal adnexae Back/Spine/Pelvis Back: no CVA tenderness Results AMB Test Urine AMB Test Urine Negative Last Edit by Andreia Plummer CMA on 06/20/25 08:00 AMB Urinalysis Dipstick UR Leukocytes Negative Last Edit by Anrdeia Plummer CMA on 06/20/25 08:00 UR Nitrite Negative Last Edit by Andreia Plummer CMA on 06/20/25 08:00 UR Urobilinogen 12 Last Edit by Andreia Plummer CMA on 06/20/25 08:00 UR Protein Negative Last Edit by Andreia Plummer CMA on 06/20/25 08:00 UR Ph 7.0 Last Edit by Andreia Plummer CMA on 06/20/25 08:00 UR Blood Negative Last Edit by Andreia Plummer CMA on 06/20/25 08:00 UR Specific Almond 1.010 Last Edit by Andreia Plummer CMA on 06/20/25 08:00 UR Ketone Negative Last Edit by Andreia Plummer CMA on 06/20/25 08:00 UR Bilirubin Negative Last Edit by Andreia Plummer CMA on 06/20/25 08:00 UR Glucose Negative Last Edit by Andreia Plummer CMA on 06/20/25 08:00 Assessment & Plan Assessment & Plan (1) Abnormal uterine bleeding (AUB): Comment: On Mirena IUD With pelvic cramping Code(s): N93.9 - Abnormal uterine and vaginal bleeding, unspecified Category: Medical Plan: Urine test and urine dip done in the office was negative. Co testing done, GC and chlamydia taken CBC, TSH, FSH/LH, HCG, and pelvic ultrasound ordered. Discussed with the patient the different causes of abnormal bleeding including thyroid disorders, uterine and ovarian pathology, endometrial hyperplasia, carcinoma and other potential causes. Discussed with the patient the work up including CBC (to r/o anemia), TSH, pelvic Ultrasound, endometrial biopsy to r/o endometrial pathology. All questions answered and the patient verbalized understanding. In addition discussed with the patient BI-RADS 4 mammogram although biopsy was negative recommended Mirena IUD removal with EMB Instructed the patient to schedule an appointment for Mirena IUD removal and an endometrial biopsy in 1-2 weeks. Orders: Orders AMB HCG Urine Test Today R10.2 - Pelvic and perineal pain, Z32.02 - Encounter for test, result negative Complete Blood Count no Diff Today N93.9 - Abnormal uterine and vaginal bleeding, unspecified HCG Quantitative Today N93.9 - Abnormal uterine and vaginal bleeding, unspecified US pelvic and transvaginal Today N93.9 - Abnormal uterine and vaginal bleeding, unspecified AMB Urinalysis Dipstick Today R10.2 - Pelvic and perineal pain, Z32.02 - Encounter for test, result negative Pap Smear Today N95.0 - Postmenopausal bleeding CT NG by PCR Vag/Cerv Today N95.0 - Postmenopausal bleeding HPV High risk Today N95.0 - Postmenopausal bleeding TSH reflex Free T4 Today N93.9 - Abnormal uterine and vaginal bleeding, unspecified Lutenizing Hormone Today N93.9 - Abnormal uterine and vaginal bleeding, unspecified Follicle Stimulating Hormone Today N93.9 - Abnormal uterine and vaginal bleeding, unspecified Coding Level of Care Code Est Pt Level 3 (85596) Diagnoses Abnormal uterine bleeding (AUB) N93.9
[2025-06-20 07:46] VITALS: BMI 31.6
== END 2025-06-20 08:11 | disposition home or self-care (01) ==
LOC: HO.HWS 07:38
PROVIDERS: PCP Physician Assistant; Visit Provider Obstetrics & Gynecology
DX: Z32.02 Encounter for pregnancy test, result negative (principal); R10.2 Pelvic and perineal pain; N93.9 Abnormal uterine and vaginal bleeding, unspecified
CPT/HCPCS: 99213

== ENCOUNTER 2025-06-20 07:38 | Outpatient (REF) | payer OTHER, SELFPAY ==
[2025-06-20 16:04] LABS: CT PCR NOT DETECTED (Not Detect.); NG PCR NOT DETECTED (Not Detect.)
== END 2025-06-20 07:39 | disposition home or self-care (01) ==
LOC: HO.LNP 07:38
PROVIDERS: PCP Physician Assistant; Visit Provider Obstetrics & Gynecology
DX: N95.0 Postmenopausal bleeding (principal); N93.9 Abnormal uterine and vaginal bleeding, unspecified; R10.2 Pelvic and perineal pain; Z11.3 Encounter for screening for infections with a predominantly sexual mode of transmission; Z11.8 Encounter for screening for other infectious and parasitic diseases
CPT/HCPCS: 81002; 81025; 87491; 87591; 87626; 88175

== ENCOUNTER 2025-06-24 07:20 | Outpatient (REF) | payer OTHER, SELFPAY ==
--- NOTE | ~2025-06-24 | US_ITS ---
EXAMINATION: US PELVIS TRANSABDOMINAL AND TRANSVAGINAL HISTORY: N93.9 - Abnormal uterine and vaginal bleeding, unspecified COMPARISON: Comparison is made with the prior examination dated 06/20/2024. TECHNIQUE: Transabdominal and endovaginal real-time 2D posada-scale ultrasound was performed. FINDINGS: Uterus: The uterus is normal in size, measuring 7.2 x 2.9 x 4.3 cm. Myometrium has a normal echotexture. No fibroids are identified. Endometrium: The endometrial stripe measures 3 mm in thickness. An IUD is seen in appropriate position in the endometrial canal. Right ovary: The right ovary measures 2.7 x 1.1 x 1.6 cm. The right ovary is normal in size and echotexture. Left ovary: The left ovary measures 3.7 x 1.9 x 2.3 cm. There is a left ovarian simple cyst measuring 3.3 x 1.5 x 1.9 cm. Pelvic fluid: none. US/US pelvic and transvaginal IMPRESSION: 1. IUD in appropriate position in the endometrial canal. 2. 3.3 x 1.5 x 1.9 cm left ovarian simple cyst. A follow-up examination is recommended. Electronically signed by: Phuc Begum MD 06/24/2025 08:21 AM EDT
--- OUTSIDE RECORDS SUMMARY | 2025-06-24 07:23 | XMS_ITS | Encounter Summary ---
Author Organization [facility] Address [address] [facility] [address] [place] [address] Phone Care Team Providers Care Specifications Writer Name Role Phone Paul Watt DO Primary Care Provider [phone] Paul Watt DO Unavailable Karlie Wright MD, MPH Primary Care Provid er Karlie Wright MD, MPH Primary Care Provid er Paul Watt DO Unavailable Karlie Wright MD, MPH Unavailable [phone]- [phone] Pcp, Unknown Primary Care Provider Unavailabl e Ailyn Fishman MD Primary Care Provid er Encounter Details Date Type Department Care Team (Late st Contact Info) Description 04/17/2018 Procedure Pass [facility] Endoscopy Admitting Dept Virtual Department [address] [place] [address] Social History Tobacco Use Types Packs/Day Years [...] on filedocumented in this encounter Care Teams Specifications Writer Relationship Specialty Start Date End Date Paul Watt DO [address] [place] [address] [email or web address] PCP - General Family Medicine 11/10/17 08/11/18 Karlie Wright MD, MPH [address] [place] [address] [email or web address] PCP - General Family Medicine 08/12/18 09/10/18 Karlie Wright MD, MPH [address] [place] [address] [email or web address] PCP - General Family Medicine 09/11/18 06/21/21 Pcp, Unknown PCP - General 06/22/21 12/10/23 Ailyn Fishman MD [address] [place] [address] PCP - General Internal Medicine 12/11/23 Paul Watt DO [address] [place] [address] [email or web address] Insurance Assigned Provider 02/04/18 08/12/18 Paul Watt DO [address] [place] [phone] Insurance Assigned Provider 04/08/19 06/12/20 Karlie Wright MD, MPH [address] [address] [email or web address] Insurance Assigned Provider 05/16/21 09/12/21 documented as of this encounter Additional Source Comments The information contained in this document represents components of the legal health record. It is not the complete legal health record.[facility]
--- OUTSIDE RECORDS SUMMARY | 2025-06-24 07:23 | XMS_ITS | Patient Health Record ---
Author Organization [facility] Address [address] [place] [address] Care Team Providers Care Marketing Underwriter Name Role Phone Holly SMITH, Ailyn Primary Care Provider Unavail able Migdalia Luis Unavailable [phone] Allergies Allergen (clinical drug ingredient) Drug/Non Drug [...] Coverage End Date Blue Benefits [address] [address] [place] [address] [id number] Katlyn Shaikh Self - patient is the insured Medical (General) History Medical History History ICD Code Anemia asthma Cancer Kidney disease Numbness Neuropathy Sciatica Chicken pox Joint implants/screws Transfusions Surgical History Surgery Date(Month/Year) knee surgery, left / complication: blood clot/DVT 2006 colon cancer 2013 portacath placement 2012 Ingrown Toe Nail 2000
== END 2025-06-24 07:21 | disposition home or self-care (01) ==
LOC: HO.US 07:20
PROVIDERS: PCP Internal Medicine; Visit Provider Obstetrics & Gynecology
DX: N93.9 Abnormal uterine and vaginal bleeding, unspecified (principal)
CPT/HCPCS: 76830; 76856

== ENCOUNTER → 2025-06-24 07:21 | Outpatient (BNV) | payer OTHER, SELFPAY | PROVIDERS: PCP Internal Medicine; Visit Provider Radiology Diagnostic Radiology | DX: N83.202 Unspecified ovarian cyst, left side (principal) | CPT/HCPCS: 76830; 76856 ==

== ENCOUNTER 2025-06-27 14:16 | Outpatient (AMB) | payer OTHER, SELFPAY ==
--- OUTSIDE RECORDS SUMMARY | 2025-06-27 14:25 | XMS_ITS | Encounter Summary ---
Author Organization [facility] Address [address] [facility] [address] [place] [address] Phone Care Team Providers Care Teacher Tutor Name Role Phone Paul Watt DO Primary Care Provider [phone] Paul Watt DO Unavailable Karlie Wright MD, MPH Primary Care Provid er Karlie Wright MD, MPH Primary Care Provid er Paul Watt DO Unavailable Karlie Wright MD, MPH Unavailable [phone]- [phone] Pcp, Unknown Primary Care Provider Unavailabl e Ailyn Fishman MD Primary Care Provid er Encounter Details Date Type Department Care Team (Late st Contact Info) Description 04/17/2018 Procedure Pass [facility] Endoscopy Admitting Dept Virtual Department [address] [place] [address] Social History Tobacco Use Types Packs/Day Years [...] on filedocumented in this encounter Care Teams Teacher Tutor Relationship Specialty Start Date End Date Paul Watt DO [address] [place] [address] [email or web address] PCP - General Family Medicine 11/10/17 08/11/18 Karlie Wright MD, MPH [address] [place] [address] [email or web address] PCP - General Family Medicine 08/12/18 09/10/18 Karlie Wright MD, MPH [address] [place] [address] [email or web address] PCP - General Family Medicine 09/11/18 06/21/21 Pcp, Unknown PCP - General 06/22/21 12/10/23 Ailyn Fishman MD [address] [place] [address] PCP - General Internal Medicine 12/11/23 Paul Watt DO [address] [place] [address] [email or web address] Insurance Assigned Provider 02/04/18 08/12/18 Paul Watt DO [address] [place] [address] Insurance Assigned Provider 04/08/19 06/12/20 Karlie Wright MD, MPH [address] [address] [email or web address] Insurance Assigned Provider 05/16/21 09/12/21 documented as of this encounter Additional Source Comments The information contained in this document represents components of the legal health record. It is not the complete legal health record.[facility]
--- OUTSIDE RECORDS SUMMARY | 2025-06-27 14:25 | XMS_ITS | Patient Health Record ---
Author Organization [facility] Address [address] [place] [address] Care Team Providers Care Senior Windows Administrator Name Role Phone Holly SMITH, Ailyn Primary Care Provider Unavail able Migdalia Luis Unavailable [phone] Allergies Allergen (clinical drug ingredient) Drug/Non Drug [...] Coverage End Date Blue Benefits [address] [address] [place] [address] [id number] Katlyn Shaikh Self - patient is the insured Medical (General) History Medical History History ICD Code Anemia asthma Cancer Kidney disease Numbness Neuropathy Sciatica Chicken pox Joint implants/screws Transfusions Surgical History Surgery Date(Month/Year) knee surgery, left / complication: blood clot/DVT 2006 colon cancer 2013 portacath placement 2012 Ingrown Toe Nail 2000
--- NOTE | 2025-06-27 14:31 | MHC.OFFVIS ---
Intake Visit Reasons: IUD removal/ colpo Head Butler: Head Butler Present (Nathalie) Accompanied by: Self / Same As Patient Allergies shrimp (SHRIMP) Allergy (Severe, Verified 06/27/25 14:32) Anaphylaxis latex (LATEX) Allergy (Intermediate, Verified 06/27/25 14:32) RASH Penicillins Allergy (Intermediate, Verified 06/27/25 14:32) Itching Sulfa (Sulfonamide Antibiotics) (SULFA (SULFONAMIDE ANTIBIOTICS)) Allergy (Intermediate, Verified 06/27/25 14:32) HIVES levofloxacin (From LEVAQUIN) Adverse Reaction (Severe, Verified 06/27/25 14:32) AGITATION morphine (MORPHINE) Adverse Reaction (Severe, Verified 06/27/25 14:32) HEADACHES adhesives Allergy (Intermediate, Uncoded 06/20/25 14:58) rash HPI Comments Details: Presenting for IUD removal, EMB an abnormal Pap smear showing ASCUS HPV positive [facility] Medical History Personal history of colon cancer Family history of breast cancer Physical exam Sinus infection Ovarian cyst GERD (gastroesophageal reflux disease) IUD (intrauterine device) in place History of blood transfusion Medullary sponge kidney Asthma History of seizure Seasonal allergies RADHA (obstructive sleep apnea) History of chemotherapy (~2012) Hx of radiation therapy (~2012) Recent bereavement Left arm pain Neck pain Retrognathia Vaginal discharge Rash Subconjunctival hemorrhage of left eye Upper respiratory tract infection Hemorrhoids with complication Myalgia Right wrist pain Right shoulder pain Screen for STD (sexually transmitted disease) Retained tampon COVID-19 Conjunctivitis Well woman exam Breast pain Shortness of breath PVC (premature ventricular contraction) PAC (premature atrial contraction) Colon cancer (~2012) DVT (deep venous thrombosis) Heart palpitations Shortness of breath Surgical History History of kidney surgery Hx of colonoscopy History of esophagogastroduodenoscopy (EGD) H/O knee surgery History of colon surgery Family History Mother High blood pressure COPD (chronic obstructive pulmonary disease) History of four vessel coronary artery bypass graft Mental health disorder Father High blood pressure Cancer Maternal Grandfather Colon cancer Paternal Aunt Colon cancer Social History (Reviewed 06/20/25 @ 14:57 by Mckenzie Price Housing: House Are you a primary school childcare attendant to a significant other at home: No Do you presently have visiting nurse or other home services: No Alcohol intake: current Alcohol intake frequency: a few times a month Alcohol type: wine Patient Tobacco Use Status: Former Tobacco user Tobacco use type: Smokeless Tobacco e-Cigarette/Vaping Use: Currently Using Second Hand Smoke Exposure: Yes service: No Current occupational status: employed 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 Current occupational exposures/hazards: No Cognitive needs: No Hearing needs: No Vision needs: No Female Reproductive History Menstrual Age of Menarche: 10 Office Procedures Colposcopy Colposcopy: Pre-Procedure Counseling: Before beginning the procedure, I conducted comprehensive counseling with the patient. We thoroughly discussed the procedure itself, including its details, alternatives, and all associated risks. This included but not limited to the following complications such as bleeding, infection, and injury to the vagina, bladder, and vessels, as well as the potential need for transfusion with all its associated risks. Subsequently, the patient sign the consent. Pap smear result: Ascus/HPV positive Urine test in office = Negative Procedure: During the procedure, the following steps were performed: A speculum was inserted, and acetic acid was applied. Colposcopy was conducted, allowing visualization of the transformation zone. Acetowhite lesions were identified at the 7+ 11+ 12 o'clock position. Cervical biopsies were obtained from the 7+ 11+ 12 o'clock position, followed by an endocervical curettage (ECC). Vaginoscopy of the upper vagina revealed no evidence of aceto-white lesions. Hemostasis was achieved using Monsel solution, and the patient tolerated the procedure well. Post-Procedure Instructions: The patient was advised to promptly contact the office or the after hours answering service or go to the emergency room if experiencing a temperature exceeding 100.4?F, abdominal pain, nausea/vomiting, or bleeding. Additionally, the patient was instructed to abstain from vaginal intercourse and bathtub use. The patient confirmed understanding of these instructions. Discharge Instructions: The patient was instructed to schedule a follow-up appointment in 2 weeks for further evaluation and management. Please note that this note was generated using a voice recognition program, and errors may have occurred during donor recruiter. 05450-Aftqhvbin of cervix including upper vagina with biopsy and ECC Procedure code (CPT) selection complete IUD Insert/Removal Details Details: Counseling/Consent: After discussing with the patient the risks of the procedure including bleeding, infection, scar tissue formation, , possible injury to blood vessels or nerves, chronic arm pain, blood transfusion, and irregular unpredictable bleeding Alternative options were discussed with the patient including but not limited: Do nothing. The patient signed the consent and agreed with the plan; all questions answered. Urine test was done in the office and was negative Preop dx: Requesting IUD removal Op: IUD removal Post op dx: same EBL= 10 cc Procedure: The patient was put in the dorsal lithotomy position a speculum was inserted in the vagina the IUD thread identified. Using a Mary clamp the thread was grasped and the IUD pulled out with no complications. The patient tolerated the procedure well and was advised to use a different method for contraception. Discharge instructions: Instructions were given to the pt to call if temp>100.4, abdominal pain heavy vaginal bleeding, n/v occur. The patient verbalized understanding and all questions answered. This note was generated with a voice recognition program. Some errors may have been overlooked during the review of this note. Sometimes these errors may affect the content or meaning of a given sentence. 56191-NIS Removal Procedure code (CPT) selection complete Assessment & Plan Assessment & Plan (1) Abnormal uterine bleeding (AUB): Code(s): N93.9 - Abnormal uterine and vaginal bleeding, unspecified Category: Medical Plan: EMB done, see procedure note (2) Encounter for IUD removal: Code(s): Z30.432 - Encounter for removal of intrauterine contraceptive device Category: Medical Plan: Mirena IUD removed, see procedure note (3) ASCUS with positive high risk HPV cervical: Code(s): R87.610 - Atypical squamous cells of undetermined significance on cytologic smear of cervix (ASC-US); R87.810 - Cervical high risk human papillomavirus (HPV) DNA test positive Category: Medical Plan: Discussed with the patient the result of her abnormal pap, its significance, risk of progression, persistence, and regression. the false positive/negative rate of a Pap smear as a screening test in detecting cervical cancer and the indication for a diagnostic test -colposcopy, biopsy, endocervical curettage. The patient verbalized understanding and agreed with the plan, all questions answered. Colposcopy, biopsy /ECC done, see procedure note Orders: Orders AMB Endometrial Biopsy Today N93.9 - Abnormal uterine and vaginal bleeding, unspecified AMB Colposcopy Today R87.610 - Atypical squamous cells of undetermined significance on cytologic smear of cervix (ASC-US), R87.810 - Cervical high risk human papillomavirus (HPV) DNA test positive Coding Level of Care Code Procedure Only Diagnoses Abnormal uterine bleeding (AUB) N93.9 Encounter for IUD removal Z30.432 ASCUS with positive high risk HPV cervical R87.610; R87.810 CPT Codes Colposcopy - CPT: 52301-Rehvpnelv of cervix including upper vagina with biopsy and ECC ([id number]) Details - CPT: 68188-YVM Removal ([id number])
== END 2025-06-27 14:50 | disposition home or self-care (01) ==
LOC: HO.HWS 14:16
PROVIDERS: PCP Internal Medicine; Visit Provider Obstetrics & Gynecology
DX: N93.9 Abnormal uterine and vaginal bleeding, unspecified (principal); R87.610 Atypical squamous cells of undetermined significance on cytologic smear of cervix (ASC-US); R87.810 Cervical high risk human papillomavirus (HPV) DNA test positive; Z30.432 Encounter for removal of intrauterine contraceptive device; Z32.02 Encounter for pregnancy test, result negative
CPT/HCPCS: 57454; 58301

== ENCOUNTER 2025-06-27 14:16 | Outpatient (REF) | payer OTHER, SELFPAY | END 2025-06-27 14:17 | disposition home or self-care (01) | LOC: HO.LNP 14:16 | PROVIDERS: PCP Internal Medicine; Visit Provider Obstetrics & Gynecology | DX: Z30.432 Encounter for removal of intrauterine contraceptive device (principal); Z32.02 Encounter for pregnancy test, result negative; N93.9 Abnormal uterine and vaginal bleeding, unspecified; R87.610 Atypical squamous cells of undetermined significance on cytologic smear of cervix (ASC-US); R87.810 Cervical high risk human papillomavirus (HPV) DNA test positive | CPT/HCPCS: 57454; 58301; 81025; 88305 ==

== ENCOUNTER 2025-07-04 07:12 | Outpatient (REF) | payer OTHER, SELFPAY ==
--- OUTSIDE RECORDS SUMMARY | 2025-07-04 07:14 | XMS_ITS | Encounter Summary ---
Author Organization [facility] Address [address] [facility] [address] [place] [address] Phone Care Team Providers Care Jacker Name Role Phone Paul Watt DO Primary Care Provider [phone] Paul Watt DO Unavailable Karlie Wright MD, MPH Primary Care Provid er Karlie Wright MD, MPH Primary Care Provid er Paul Watt DO Unavailable Karlie Wright MD, MPH Unavailable [phone] Pcp, Unknown Primary Care Provider Unavailabl e Ailyn Fishman MD Primary Care Provid er Encounter Details Date Type Department Care Team (Latest Contact Info) Description 01/20/2018 Ancillary Orders Virtual Department [address] [place] [address] Taras Rivers MD [address] [place] [address] [email or web address]_[place] [address] [email or web address] 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 Chronic non-obstructing left nephrolithiasis. No renal mass or hydronephrosis apparent. POS [id number] Narrative 02/20/2018 8:34 AM EDT COMPARISON: 02/26/2016 FINDINGS: Kidneys are within normal limits overall size with the right currently measuring 13.6 x 4.9 cm and the left 11.8 x 6.2 cm in a longitudinal plane. There is a chronic right lower pole cyst measuring 13 x 12 x 15 mm with a 6 mm shadowing calcification along the wall (previously 17 x 17 x 19 mm with a 5 mm calcification). No solid right renal mass or new shadowing calcifications identified. No right-sided hydronephrosis. There are multiple calculi in the left kidney with three in the lower pole measuring up to 8 mm in size and with 8 mm and 6 mm calculi present in the upper pole. No hydronephrosis or solid or cystic parenchymal lesion apparent. Procedure Note Renita Ricardo MD - 02/20/2018 COMPARISON: 02/26/2016 FINDINGS: Kidneys are within normal limits overall size with the right currentlymeasuring 13.6 x 4.9 cm and the left 11.8 x 6.2 cm in a longitudinalplane. There is a chronic right lower pole cyst measuring 13 x 12 x 15 mmwith a 6 mm shadowing calcification along the wall (previously 17 x 17 x19 mm with a 5 mm calcification). No solid right renal mass or newshadowing calcifications identified. No right-sided hydronephrosis.There are multiple calculi in the left kidney with three in the lower polemeasuring up to 8 mm in size and with 8 mm and 6 mm calculi present in theupper pole. No hydronephrosis or solid or cystic parenchymal lesionapparent. IMPRESSION: No significant change in peripherally calcified right renal cortical cystsince 02/20/2018. Chronic non-obstructing left nephrolithiasis. No renalmass or hydronephrosis apparent. 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) documented in this encounter Care Teams Jacker Relationship Specialty Start Date End Date Paul Watt DO [address] [place] [address] [email or web address] PCP - General Family Medicine 11/10/17 08/11/18 Karlie Wright MD, MPH [address] [place] [address] [email or web address] PCP - General Family Medicine 08/12/18 09/10/18 Karlie Wright MD, MPH [address] [place] [address] [email or web address] PCP - General Family Medicine 09/11/18 06/21/21 Pcp, Unknown PCP - General 06/22/21 12/10/23 Ailyn Fishman MD [address] [place] [address] PCP - General Internal Medicine 12/11/23 Paul Watt DO [address] [place] [address] [email or web address] Insurance Assigned Provider 02/04/18 08/12/18 Paul Watt DO [address] [place] [address] Insurance Assigned Provider 04/08/19 06/12/20 Karlie Wright MD, MPH [address] [place] [address] [email or web address] Insurance Assigned Provider 05/16/21 09/12/21 documented as of this encounter Additional Source Comments The information contained in this document represents components of the legal health record. It is not the complete legal health record.[facility]
--- OUTSIDE RECORDS SUMMARY | 2025-07-04 07:14 | XMS_ITS | Encounter Summary ---
Author Organization [facility] Address [address] [facility] [address] [place] [address] Phone Care Team Providers Care Proof Inspector Name Role Phone Paul Watt DO Primary Care Provider [phone] Paul Watt DO Unavailable Karlie Wright MD, MPH Primary Care Provid er Karlie Wright MD, MPH Primary Care Provid er Paul Watt DO Unavailable Karlie Wright MD, MPH Unavailable [phone] Pcp, Unknown Primary Care Provider Unavailabl e Ailyn Fishman MD Primary Care Provid er Encounter Details Date Type Department Care Team (Late st Contact Info) Description 02/20/2018 Procedure Pass [facility], Ct Scan - [address] [address] Social History Tobacco Use Types Packs/Day Years [...] on filedocumented in this encounter Care Teams Proof Inspector Relationship Specialty Start Date End Date Paul Watt DO [address] [place] [address] [email or web address] PCP - General Family Medicine 11/10/17 08/11/18 Karlie Wright MD, MPH [address] [place] [phone] [email or web address] PCP - General Family Medicine 08/12/18 09/10/18 Karlie Wright MD, MPH [address] [place] [address] [email or web address] PCP - General Family Medicine 09/11/18 06/21/21 Pcp, Unknown PCP - General 06/22/21 12/10/23 Ailyn Fishman MD [address] [place] [address] PCP - General Internal Medicine 12/11/23 Paul Watt DO [address] [place] [address] [email or web address] Insurance Assigned Provider 02/04/18 08/12/18 Paul Watt DO [address] [place] [address] [email or web address] Insurance Assigned Provider 04/08/19 06/12/20 Karlie Wright MD, MPH [address] [address] [email or web address] Insurance Assigned Provider 05/16/21 09/12/21 documented as of this encounter Additional Source Comments The information contained in this document represents components of the legal health record. It is not the complete legal health record.[facility]
--- OUTSIDE RECORDS SUMMARY | 2025-07-04 07:14 | XMS_ITS | Encounter Summary ---
Author Organization [facility] Address [address] [address] Phone Care Team Providers Care Stem Roller Or Crusher Operator Name Role Phone Paul Watt DO Primary Care Provider [phone] Pual Watt DO Unavailable Karlie Wright MD, MPH Primary Care Provid er Karlie Wright MD, MPH Primary Care Provid er Paul Watt DO Unavailable Karlie Wright MD, MPH Unavailable [phone] Pcp, Unknown Primary Care Provider Unavailabl e Ailyn Fishman MD Primary Care Provid er Encounter Details Date Type Department Care Team (Late st Contact Info) Description 02/22/2018 Transcribe Orders [facility] [address] [place] [address] Debra Forte, SUPERVISOR [employer] [address] [facility] [place] [address] Abdominal pain, unspecified abdominal location (Primary Dx) Social History Tobacco Use Types Packs/Day Years [...] documented as of this encounter Results * Ova and parasites, stool (02/21/2018 9:00 AM EDT) Specimen Source/ Description STOOL STOOL STOOL [facility] Special Requests None [facility] DIRECT EXAM No parasites found by Trichrome Stain [facility] DIRECT EXAM NO PARASITES FOUND BY DIRECT OR CONCENTRATION METHODS [facility] Report Status 03/02/2018 FINAL [facility] Stool (Stool) 02/21/2018 9:0 0 AM EDT 02/22/2018 11:42 AM EDT us Debra Forte CNP MICROBIOLOGY - GENERA L ORDERABLES Final Result Performing Organization Address [facility] Co de Phone Number [address] [address] * Ova and parasites, stool (02/17/2018 6:00 PM EDT) Specimen Source/ Description STOOL STOOL STOOL [facility] Special Requests None [facility] DIRECT EXAM No parasites found by Trichrome Stain [facility] DIRECT EXAM NO PARASITES FOUND BY DIRECT OR CONCENTRATION METHODS [facility] Report Status 03/02/2018 FINAL [facility] Stool (Stool) 02/17/2018 6:0 0 PM EDT 02/22/2018 11:41 AM EDT Debra Forte CNP MICROBIOLOGY - GENERA L ORDERABLES Final Result Performing Organization Address City/[facility] Co de Phone Number [address] [address] documented in this encounter Visit Diagnoses Diagnosis Abdominal pain, unspecified abdominal location- Primary documented in this encounter Care Teams Stem Roller Or Crusher Operator Relationship Specialty Start Date End Date Paul Watt DO [address] [place] [phone] [email or web address] PCP - General Family Medicine 11/10/17 08/11/18 Karlie Wright MD, MPH [address] [address] [email or web address] PCP - General Family Medicine 08/12/18 09/10/18 Karlie Wright MD, MPH [address] [place] [address] [email or web address] PCP - General Family Medicine 09/11/18 06/21/21 Pcp, Unknown PCP - General 06/22/21 12/10/23 Ailyn Fishman MD [address] [place] [address] PCP - General Internal Medicine 12/11/23 Paul Watt DO [address] [place] [address] [email or web address] Insurance Assigned Provider 02/04/18 08/12/18 Paul Watt DO [address] [place] [address] [email or web address] Insurance Assigned Provider 04/08/19 06/12/20 Karlie Wright MD, MPH [address] [place] [address] [email or web address] Insurance Assigned Provider 05/16/21 09/12/21 documented as of this encounter Additional Source Comments The information contained in this document represents components of the legal health record. It is not the complete legal health record.[facility]
--- OUTSIDE RECORDS SUMMARY | 2025-07-04 07:14 | XMS_ITS | Encounter Summary ---
Author Organization [facility] Address [address] [facility] [address] [place] [address] Phone Care Team Providers Care Maintenance Clerk Name Role Phone Paul Watt DO Primary Care Provider [phone] Paul Watt DO Unavailable Karlie Wright MD, MPH Primary Care Provid er Karlie Wright MD, MPH Primary Care Provid er Paul Watt DO Unavailable Karlie Wright MD, MPH Unavailable [phone] Pcp, Unknown Primary Care Provider Unavailabl e Ailyn Fishman MD Primary Care Provid er Encounter Details Date Type Department Care Team (Late st Contact Info) Description 02/14/2018 Transcribe Orders [facility] [address] [place] [address] Paul Watt DO [address] [facility] [place] [address] Social History Tobacco Use Types Packs/Day Years [...] on filedocumented in this encounter Care Teams Maintenance Clerk Relationship Specialty Start Date End Date Paul Watt DO [address] [place] [address] [email or web address] PCP - General Family Medicine 11/10/17 08/11/18 Karlie Wright MD, MPH [address] [place] [address] [email or web address] PCP - General Family Medicine 08/12/18 09/10/18 Karlie Wright MD, MPH [address] [place] [address] [email or web address] PCP - General Family Medicine 09/11/18 06/21/21 Pcp, Unknown PCP - General 06/22/21 12/10/23 Ailyn Fishman MD [address] [place] [address] PCP - General Internal Medicine 12/11/23 Paul Watt DO [address] [place] [address] [email or web address] Insurance Assigned Provider 02/04/18 08/12/18 Paul Watt DO [address] [place] [address] [email or web address] Insurance Assigned Provider 04/08/19 06/12/20 Karlie Wright MD, MPH [address] [place] [address] [email or web address] Insurance Assigned Provider 05/16/21 09/12/21 documented as of this encounter Additional Source Comments The information contained in this document represents components of the legal health record. It is not the complete legal health record.[facility]
--- OUTSIDE RECORDS SUMMARY | 2025-07-04 07:14 | XMS_ITS | Encounter Summary ---
Author Organization [facility] Address [address] [facility] [address] [place] [address] Phone Care Team Providers Care Superintendent [employer] Name Role Phone Paul Watt DO Primary Care Provider [phone] Paul Watt DO Unavailable Karlie Wright MD, MPH Primary Care Provid er Karlie Wright MD, MPH Primary Care Provid er Paul Watt DO Unavailable Karlie Wright MD, MPH Unavailable [phone] Pcp, Unknown Primary Care Provider Unavailabl e Ailyn Fishman MD Primary Care Provid er Encounter Details Date Type Department Care Team (Late st Contact Info) Description 02/20/2018 Procedure Pass [facility], Ct Scan - [address] [address] Social History Tobacco Use Types Packs/Day Years [...] on filedocumented in this encounter Care Teams Superintendent [employer] Well [employer] Relationship Specialty Start Date End Date Paul Watt DO [address] [place] [address] [email or web address] PCP - General Family Medicine 11/10/17 08/11/18 Karlie Wright MD, MPH [address] [place] [address] [email or web address] PCP - General Family Medicine 08/12/18 09/10/18 Karlie Wright MD, MPH [address] [place] [address] [email or web address] PCP - General Family Medicine 09/11/18 06/21/21 Pcp, Unknown PCP - General 06/22/21 12/10/23 Ailyn Fishman MD [address] [place] [address] PCP - General Internal Medicine 12/11/23 Paul Watt DO [address] [place] [address] [email or web address] Insurance Assigned Provider 02/04/18 08/12/18 Paul Watt DO [address] [place] [address] [email or web address] Insurance Assigned Provider 04/08/19 06/12/20 Karlie Wright MD, MPH [address] [address] [email or web address] Insurance Assigned Provider 05/16/21 09/12/21 documented as of this encounter Additional Source Comments The information contained in this document represents components of the legal health record. It is not the complete legal health record.[facility]
--- OUTSIDE RECORDS SUMMARY | 2025-07-04 07:14 | XMS_ITS | Patient Health Record ---
[facility] Address [address] [place] [address] Care Team Providers Care Flyer Builder Name Role Phone Holly SMITH, Ailyn Primary Care Provider Unavail able Migdalia Luis Unavailable [phone] Allergies Allergen (clinical drug ingredient) Drug/Non Drug [...] Coverage End Date Blue Benefits [address] [address] [place] [address] [id number] Katlyn Shaikh Self - patient is the insured Medical (General) History Medical History History ICD Code Anemia asthma Cancer Kidney disease Numbness Neuropathy Sciatica Chicken pox Joint implants/screws Transfusions Surgical History Surgery Date(Month/Year) knee surgery, left / complication: blood clot/DVT 2006 colon cancer 2013 portacath placement 2012 Ingrown Toe Nail 2000
--- OUTSIDE RECORDS SUMMARY | 2025-07-04 07:14 | XMS_ITS | Encounter Summary ---
Author Organization [facility] Address [address] [facility] [address] [place] [address] Phone Care Team Providers Care Electronic Equipment Trades Worker Name Role Phone Paul Watt DO Primary Care Provider [phone] Paul Watt DO Unavailable Karlie Wright MD, MPH Primary Care Provid er Karlie Wright MD, MPH Primary Care Provid er Paul Watt DO Unavailable Karlie Wright MD, MPH Unavailable [phone]- [phone] Pcp, Unknown Primary Care Provider Unavailabl e Ailyn Fishman MD Primary Care Provid er Encounter Details Date Type Department Care Team (Late st Contact Info) Description 04/17/2018 Procedure Pass [facility] Endoscopy Admitting Dept Virtual Department [address] [place] [address] Social History Tobacco Use Types Packs/Day Years [...] on filedocumented in this encounter Care Teams Electronic Equipment Trades Worker Relationship Specialty Start Date End Date Paul Watt DO [address] [place] [address] [email or web address] PCP - General Family Medicine 11/10/17 08/11/18 Karlie Wright MD, MPH [address] [place] [phone] [email or web address] PCP - General Family Medicine 08/12/18 09/10/18 Karlie Wright MD, MPH [address] [place] [address] [email or web address] PCP - General Family Medicine 09/11/18 06/21/21 Pcp, Unknown PCP - General 06/22/21 12/10/23 Ailyn Fishman MD [address] [place] [phone] PCP - General Internal Medicine 12/11/23 Paul Watt DO [address] [place] [phone] [email or web address] Insurance Assigned Provider 02/04/18 08/12/18 Paul Watt DO [address] [place] [phone] Insurance Assigned Provider 04/08/19 06/12/20 Karlie Wright MD, MPH [address] [address] [email or web address] Insurance Assigned Provider 05/16/21 09/12/21 documented as of this encounter Additional Source Comments The information contained in this document represents components of the legal health record. It is not the complete legal health record.[facility]
--- OUTSIDE RECORDS SUMMARY | 2025-07-04 07:14 | XMS_ITS | Encounter Summary ---
Author Organization [facility] Address [address] [facility] [address] [place] [address] Phone Care Team Providers Care Instructional Design Manager Name Role Phone Paul Watt DO Primary Care Provider [phone] Paul Watt DO Unavailable Karlie Wright MD, MPH Primary Care Provid er Karlie Wright MD, MPH Primary Care Provid er Paul Watt DO Unavailable Karlie rWight MD, MPH Unavailable [phone] Pcp, Unknown Primary Care Provider Unavailabl e Ailyn Fishman MD Primary Care Provid er Encounter Details Date Type Department Care Team (Late st Contact Info) Description 07/03/2018 Ancillary Orders Virtual Department [address] [place] [phone] Willie Strong MD [address] [place] [address], [address] [address] [email or web address] Calculus of kidney Social History Tobacco Use Types Packs/Day Years [...] documented as of this encounter Visit Diagnoses Diagnosis Calculus of kidney documented in this encounter Care Teams Instructional Design Manager Relationship Specialty Start Date End Date Paul Watt DO [address] [place] [address] [email or web address] PCP - General Family Medicine 11/10/17 08/11/18 Karlie Wright MD, MPH [address] [place] [phone] [email or web address] PCP - General Family Medicine 08/12/18 09/10/18 Karlie Wright MD, MPH [address] [place] [phone] [email or web address] PCP - General Family Medicine 09/11/18 06/21/21 Pcp, Unknown PCP - General 06/22/21 12/10/23 Ailyn Fishman MD [address] [place] [address] PCP - General Internal Medicine 12/11/23 Paul Watt DO [address] [place] [address] [email or web address] Insurance Assigned Provider 02/04/18 08/12/18 Paul Watt DO [address] [place] [address] [email or web address] Insurance Assigned Provider 04/08/19 06/12/20 Karlie Wright MD, MPH [address] [place], [place] [phone] [email or web address] Insurance Assigned Provider 05/16/21 09/12/21 documented as of this encounter Additional Source Comments The information contained in this document represents components of the legal health record. It is not the complete legal health record.[facility]
--- OUTSIDE RECORDS SUMMARY | 2025-07-04 07:14 | XMS_ITS | Clinical Summary ---
Author Organization [facility] Address [address] [address] Phone Care Team Providers Care Shank Turner Name Role Phone Ailyn Fishman MD Primary Care Provid er Allergies Active Allergy Reactions Criticality Noted Date Comments Adhesive Rash Low 12/11/2023 Ciprofloxacin Unknown 12/11/2023 Latex Hives 12/11/2023 Levofloxacin Unknown 09/09/2017 Morphine Unknown 09/09/2017 Shellfish Containing Products Anaphylaxis High 12/11 Sulfa (Sulfonamide Antibiotics) Unknown 01/2017 Sulfamethoxazole-Trimethoprim Hives 2023 Medications albuterol 90 mcg/actuation inhaler Inhale 2 puffs into the lungs every 6 (six) hours as needed for wheezing. Active benzonatate (TESSALON) 100 MG capsuleIndicatio ns:Viral URI with cough Take 1 capsule (100 mg total) by mouth 3 (three) times a day as needed for cough. 20 capsule 8 Active enoxaparin (LOVENOX) 100 mg/mL Syrg subcutaneous syringeIndicatio ns:Malignant neoplasm of colon, unspecified part of colon Inject 0.8 mL (80 mg total) under the skin every 12 (twelve) hours. 14 Syringe 8 Active warfarin (COUMADIN) 5 MG tabletIndication s:DVT (deep vein thrombosis) in Take 1 tablet daily on -W-, and 2 tablets daily on T-T-S-S 143 tablet 3 8 Active omeprazole (PRILOSEC) 20 MG capsule TAKE ONE CAPSULE BY MOUTH EVERY DAY 30 capsule 1 8 Active fluticasone propionate (FLONASE) 50 mcg/actuation nasal spray INHALE 1 SPRAY UP THE NOSTRIL ONCE A DAY 1 Bottle 8 Active Additional Information Patient not taking.Reported on 12/11/2023 fexofenadine HCl (AILYN ALLERGY ORAL) Ailyn Active EPINEPHrine (EPIPEN) 0.3 mg/0.3 mL auto-injector EpiPen Active terbinafine HCL (LAMISIL) 250 mg tablet 1 tablet Orally Once a day for 30 days Active ammonium lactate (AMLACTIN) 12 % cream 1 application to affected area Externally to feet Twice a day for 30 days Active buPROPion (WELLBUTRIN XL) 300 MG ER 24 hr tablet Take 300 mg by mouth every morning. 4 Active Active Problems Patient Care Coordination No te Formatting of this note migh t be different from the original. Height 168.3cm no shoes 09/26/18 Problem Noted Date Diagnosed Date History of deep vein thrombosis 04/09/2019 Other hemorrhoids 04/09/2019 Diarrhea 02/16/2018 Assessment & Plan (02/16/2018 1:07 AM EDT): Pt UTD with colonoscopy. No obvious exposures, med changes or dietary changes. ? Viral GE ? Cdiff potentially from exposure at work. Will draw labs and have close f/u with consideration of GI eval if symptoms persist. Pt advised to push fluids start fiber supplement and may use immodium. Asthma 12/26/2017 Plantar fasciitis 12/26/2017 Colon cancer 12/26/2017 Assessment & Plan (02/14/2018 3:35 PM EDT): Colon CA in sigmoid colon. Partial sigmoid colon resection with Dr Muniz in 2013. Course of chemotherapy. Follows with Dr Osborne. Arthritis 12/26/2017 Migraine 12/26/2017 Kidney stones 12/26/2017 Medullary sponge kidney 12/26/2017 Assessment & Plan (12/26/2017 11:15 AM EST): Follows with Dr Strong. May Have lithotripsy in the future to address stones Left otitis media 12/26/2017 Acute recurrent frontal sinusitis 12/26/2017 Assessment & Plan (12/26/2017 1:09 PM EST): Pt advised to start doxycycline and flonase. Use steam for congestion and tylenol for discomfort. RTC if symptoms fail to improve. Resolved Problems Problem Noted Date Diagnosed Date Resolved Date DVT of leg (deep venous thrombosis) 09/03/2017 12/14/2018 Chronic anticoagulation 09/03/201705/2019 Immunizations Immunization Administration Dates Next Due Hepatitis B Adult 10/25/2014,04/04/2012,10/28/20 11 MMR 09/09/2017,08/12/2017 Tdap 10/14/2011 Family History Medical History Relation Comments Hypertension Brother Hypertension Father Colon cancer Maternal Grandfather Hypertension Mother Diabetes Paternal Grandfather Relation Status Comments Brother Father Maternal Grandfather Mother Paternal Grandfather Social History Tobacco Use Types Packs/Day Years Used Date Smoking Tobacco: Former Smokeless Tobacco: Never Alcohol Use Standard Drinks/Week Comments Yes 0 (1 standard drink = 0.6 oz pur e alcohol) rare Education Answer Date Recorded Are you interested in more education? Not on nick e 03/04/2023 Are you concerned about learning? Not on file 03/04/2023 No 03/04/2023 No 03/04/2023 Digital Access Answer Date Recorded No 04/01/2023 No 04/01/2023 Reliable internet access at home? Not on file 04/01/2023 Device with a working camera? 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 Not on file Not on file Not on file Last Filed Vital Signs Vital Sign Reading Time Taken Comments Blood Pressure 118/44 12/11/2023 10:08 AM EST Pulse 76 12/11/2023 10:08 AM EST Temperature 36.8 C (98.3 F) 12/11/2023 10:08 AM EST Respiratory Rate 20 12/11/2023 10:08 AM EST Oxygen Saturation 98% 12/11/2023 10:08 AM EST Inhaled Oxygen Concentration - - Weight 86.2 kg (190 lb) 12/11/2023 10:08 AM EST Height 177.8 cm (5' 10 ) 12/11/2023 10:08 AM EST Body Mass Index 27.26 12/11/2023 10:08 AM EST Plan of Treatment Health Maintenance Due Date Last Done Comments LIPID PANEL 1974 DEPRESSION SCREENING 1986 SMOKING Hx and SMOKELESS TOBACCO SCREENING 1987 HIV ONE-TIME SCREENING (18-6 5 YEARS) 1992 PNEUMOCOCCAL VACCINES (50+ years) (1 of 2 - PCV) 1993 ZOSTER VACCINES (1 of 2) 1993 PAP SMEAR 1995 MAMMOGRAM 2014 COLOGUARD 2019 FIT TEST 2019 FOBT 2019 SIGMOIDOSCOPY 2019 VIRTUAL COLONOSCOPY 2019 SCREENING FOR DIABETES 08/23/2021 08/23/2018 Adult Td,Tdap Booster 10/14/2021 10/14/2011 COVID-19 VACCINE (3 - 2023-2 5 season) 2024 11/14/2020, 10/24/2020 COLONOSCOPY 04/17/2028 04/17/2018, 09/22/2015 COLORECTAL CANCER SCREENING 04/17/2028 HEPATITIS C SCREENING Completed 06/03/2017 HEPATITIS A VACCINES Aged Out No long er eligible based on patient's age to complete this topic HIB VACCINES Aged Out No longer eligi ble based on patient's age to complete this topic MENINGOCOCCAL VACCINES (ACWY) Aged Out No longer eligible based on patient's age to complete this topic MENINGOCOCCAL VACCINES (B) Aged Out N o longer eligible based on patient's age to complete this topic Medical Devices Not on file Procedures Procedure Name Priority Date/Time Associated Diagnosis Comments ENDOSCOPY, COLON 04/17/2018 12:1 4 PM EDT from Last 3 Months or Most Recently Relevant to Health Maintenance Results * ENDOSCOPY, COLON (04/17/2018 12:14 PM EDT) Narrative Transcriptions Mike Busch MD - 04/17/2018 12:14 PM EDT Patient Name: Katlyn Shaikh Attending MD:: MIKE BUSCH MD Procedure Date: 04/17/2018 12:14 PM Date of : 1975 Age: 42 Admit Type: Outpatient Gender: Female Room: [facility] Referring MD: PAUL WATT MD Exam Type: Colonoscopy Indications: High risk colon cancer surveillance: Personal historyof colon cancer Medications: Monitored Anesthesia Care Procedure: Informed consent was obtained from the patient after discussion of the indications, limitations,alternatives, benefits, and risks of the procedure. Risksspecifically discussed include but are not limited to medication reactions, missed lesions, bleeding, perforation, orthe need for emergent surgery. Throughout the procedure, the patient's blood pressure, pulse, end-tidal CO2, and oxygen saturations were monitored continuously. The Colonoscope was introduced through the anus and advanced to the terminal ileum. The colonoscopy was performed without difficulty. The patient tolerated the procedure well. The quality of the bowel preparationwas good. Complications: No immediate complications. Estimated blood loss:None. Findings: The perianal and digital rectal examinations werenormal. There was evidence of a prior end-to-end colo-colonic anastomosis in the recto-sigmoid colon. This waspatent. A diminutive polyp was found in the sigmoid colon. The polyp was sessile. The polyp was removed with a cold biopsy forceps. Resection and retrieval werecomplete. The rectum, descending colon, splenic flexure,transverse colon, hepatic flexure, ascending colon, cecum, appendiceal orifice, ileocecal valve, ileum, rectum (on retroflexion) and ascending colon (on retroflexion) appeared normal. Impression: - Patent end-to-end colo-colonic anastomosis. - One diminutive polyp in the sigmoid colon, removedwith a cold biopsy forceps. Resected and retrieved. - The rectum, descending colon, splenic flexure, transverse colon, hepatic flexure, ascending colon,cecum, appendiceal orifice, ileocecal valve and terminal ileum are normal. Recommendation: - Discharge patient to home. - Resume previous diet. - Continue present medications. - Await pathology results. - Repeat colonoscopy in 3 years for surveillance. - I will send you pathology results by letter. If youdo not get results in 3 weeks telephone my office. - Resume Coumadin (warfarin) at prior dose today. - Resume Lovenox (enoxaparin) at prior dose today. MIKE BUSCH MD 04/17/2018 12:36:51 PM This report has been signed electronically. Number of Addenda: 0 Note Initiated On: 04/17/2018 12:14 PM Procedure Code(s): --- Professional --- 85883, Colonoscopy, flexible; with biopsy, single or multiple --- Technical --- 79131, Colonoscopy, flexible; with biopsy, single or multiple Diagnosis Code(s): --- Professional --- Z85.038, Personal history of other malignant neoplasm of largeintestine Z98.0, Intestinal bypass and anastomosis status D12.5, Benign neoplasm of sigmoid colon --- Technical --- Z85.038, Personal history of other malignant neoplasm of largeintestine Z98.0, Intestinal bypass and anastomosis status D12.5, Benign neoplasm of sigmoid colon CPT copyright 2016 [employer]. All rights reserved. The codes documented in this report are preliminary and upon credit collections analyst reviewmay be revised to meet current compliance requirements. [address] [place] [address] Paul Watt DO GI PROCEDURE ORDERABLES Final Re sult from Last 3 Months or Most Recently Relevant to Health Maintenance Insurance [facility] [employer] [facility] [employer] [facility] [employer] [facility] [employer] Member Subscriber Plan / Payer (Ef fective 2018-Present) Name:Katlyn Shaikh Relation to Subscriber:Self Name:Katlyn Shaikh Payer ID:[id number] (NAIC) Type:PPO Address: [address] Member Subscriber Plan / Payer (Ef fective 2018-Present) Name:Katlyn Shaikh Relation to Subscriber:Self Name:Katlyn Shaikh Payer ID:[id number] (IC) Type:PPO Address: [address] [address] ADMINISTRATORS [facility] [employer] Care Teams Shank Turner Relationship Specialty Start Date End Date Ailyn Fishman MD [address] [place] [address] PCP - General Internal Medicine 12/11/23 Additional Source Comments The information contained in this document represents components of the legal health record. It is not the complete legal health record.[facility]
[2025-07-04 08:00] LABS: Hematocrit 37.8 % (37.0-47.0); Hemoglobin 12.8 g/dl (12.0-16.0); Mean Corpuscular HGB Conc 33.9 g/dl (31.0-35.0); Mean Corpuscular Hemoglobin 31.2 pg (27.0-33.0); Mean Corpuscular Volume 92.2 fL (80.0-98.0); NRBC Abs Auto 0.000 X10*3/uL (0.0-0.012); NRBC Pct Auto 0.0 /100WBC (0.0-0.2); Platelet Count 213 X10*3/uL (160-400); Red Blood Count 4.10 X10*6/uL (4.20-5.50); White Blood Count 4.7 X10*3/uL (4.8-10.8)
[2025-07-05 05:19] LABS: Follicle Stimulating Hormone 66.0 mIU/mL
== END 2025-07-04 07:13 | disposition home or self-care (01) ==
LOC: HO.LAB 07:12
PROVIDERS: PCP Internal Medicine; Visit Provider Obstetrics & Gynecology
DX: N93.9 Abnormal uterine and vaginal bleeding, unspecified (principal); Z32.02 Encounter for pregnancy test, result negative
CPT/HCPCS: 36415; 83001; 83002; 84443; 84702; 85027

== ENCOUNTER 2025-07-16 13:53 | Outpatient (AMB) | payer OTHER, SELFPAY ==
--- NOTE | 2025-07-16 14:03 | A.OFFVIS_ITS ---
Vital Signs 07/16/25 14:14 Height 5 ft 9 in Weight 220 lb BMI 32.5 Intake Visit Reasons: pelvic pain Superintendent Quarry Required: No Information Interpreted: non-clinical & clinical Telecom Network Manager: Telecom Network Manager Present (Andreia MCFADDEN) Accompanied by: Self / Same As Patient Allergies shrimp (SHRIMP) Allergy (Severe, Verified 07/16/25 14:14) Anaphylaxis latex (LATEX) Allergy (Intermediate, Verified 07/16/25 14:14) RASH Penicillins Allergy (Intermediate, Verified 07/16/25 14:14) Itching Sulfa (Sulfonamide Antibiotics) (SULFA (SULFONAMIDE ANTIBIOTICS)) Allergy (Intermediate, Verified 07/16/25 14:14) HIVES levofloxacin (From LEVAQUIN) Adverse Reaction (Severe, Verified 07/16/25 14:14) AGITATION morphine (MORPHINE) Adverse Reaction (Severe, Verified 07/16/25 14:14) HEADACHES adhesives Allergy (Intermediate, Uncoded 07/16/25 14:14) rash Is last menstrual period known: No (mirena) HPI Comments Details: The patient is presenting after endometrial biopsy/colpo biopsy ECC. The patient complaining of pelvic cramping associated with vaginal discharge no foul odor itching no fever or chills or nausea and vomiting The pathology report showed the following: A. Endometrium, biopsy: Predominantly blood and fragments of inactive endometrium with pseudo- decidualized stroma and stromal and glandular breakdown consistent with progestin effect; negative for atypia, hyperplasia or malignancy. B. Endocervix, curettage: Scant fragments of benign endocervical glands and squamous mucosa; negative for squamous intraepithelial lesion. C. Cervix, 7o'clock, biopsy: Chronic cervicitis; negative for squamous intraepithelial lesion. D. Cervix, 11 o'clock, biopsy: Squamous mucosa within normal limits; no endocervical component seen; negative for squamous intraepithelial lesion. E. Cervix, 12 o'clock, biopsy: Squamous mucosa within normal limits; no endocervical component seen; negative for squamous intraepithelial lesion. COMMENT: The atypical cells noted on the patient's recent Pap smear ([id number]; ASCUS, HPV+) are not seen in the current biopsy materials The following workup was done.: H&H= 12.8/37.8 TSH, hCG, GC and chlamydia were negative. FSH/LH 66/27.3 Co testing showed ASCUS HPV positive, colpo biopsy ECC, see pathology results above Mammogram was done in 01/29 was BI-RADS 1. Pelvic ultrasound showed the following: Uterus: The uterus is normal in size, measuring 7.2 x 2.9 x 4.3 cm. Myometrium has a normal echotexture. No fibroids are identified. Endometrium: The endometrial stripe measures 3 mm in thickness. An IUD is seen in appropriate position in the endometrial canal. Right ovary: The right ovary measures 2.7 x 1.1 x 1.6 cm. The right ovary is normal in size and echotexture. Left ovary: The left ovary measures 3.7 x 1.9 x 2.3 cm. There is a left ovarian simple cyst measuring 3.3 x 1.5 x 1.9 cm. Pelvic fluid: none. [facility] Medical History Personal history of colon cancer Family history of breast cancer Physical exam Sinus infection Ovarian cyst GERD (gastroesophageal reflux disease) IUD (intrauterine device) in place History of blood transfusion Medullary sponge kidney Asthma History of seizure Seasonal allergies RADHA (obstructive sleep apnea) History of chemotherapy (~2012) Hx of radiation therapy (~2012) Recent bereavement Left arm pain Neck pain Retrognathia Vaginal discharge Rash Subconjunctival hemorrhage of left eye Upper respiratory tract infection Hemorrhoids with complication Myalgia Right wrist pain Right shoulder pain Screen for STD (sexually transmitted disease) Retained tampon COVID-19 Conjunctivitis Well woman exam Breast pain Shortness of breath PVC (premature ventricular contraction) PAC (premature atrial contraction) Colon cancer (~2012) DVT (deep venous thrombosis) Heart palpitations Shortness of breath Surgical History History of kidney surgery Hx of colonoscopy History of esophagogastroduodenoscopy (EGD) H/O knee surgery History of colon surgery Family History Mother High blood pressure COPD (chronic obstructive pulmonary disease) History of four vessel coronary artery bypass graft Mental health disorder Father High blood pressure Cancer Maternal Grandfather Colon cancer Paternal Aunt Colon cancer Social History Housing: House Are you a primary pediatric acute care unit nurse to a significant other at home: No Do you presently have visiting nurse or other home services: No Alcohol intake: current Alcohol intake frequency: a few times a month Alcohol type: wine Patient Tobacco Use Status: Former Tobacco user Tobacco use type: Smokeless Tobacco e-Cigarette/Vaping Use: Currently Using Second Hand Smoke Exposure: Yes service: No Current occupational status: employed 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 Current occupational exposures/hazards: No Cognitive needs: No Hearing needs: No Vision needs: No Female Reproductive History Menstrual Age of Menarche: 10 Review of Systems Const All systems reviewed & are unremarkable except as noted in HPI and below Physical Exam General: Yes no CVA tenderness External Female Exam: normal external appearance and normal appearance of the urethra Speculum Exam - Vagina: normal appearance of the vagina, normal palpation, no lesions and no masses Speculum Exam - Cervix: normal appearance of the cervix, normal palpation, no lesions, no masses and nontender Bimanual exam- vagina & uterus: normal bimanual exam, normal palpation, uterine size normal, normal palpation, uterine shape normal, No Cervical tenderness present and non-tender Bimanual Exam- Adnexa, other: normal adnexae Back/Spine/Pelvis Back: no CVA tenderness Results AMB Test Urine AMB Test Urine Negative Last Edit by Andreia Plummer CMA on 14:16 AMB Urinalysis Dipstick UR Leukocytes Medium Last Edit by Andreia Plummer CMA on 07/16/25 14:16 UR Nitrite Negative Last Edit by Andreia Plummer CMA on 07/16/25 14:16 UR Urobilinogen Normal Last Edit by Andreia Plummer CMA on 07/16/25 14:16 UR Protein Negative Last Edit by Andreia Plummer CMA on 07/16/25 14:16 UR Ph 6.5 Last Edit by Andreia Plummer CMA on 07/16/25 14:16 UR Blood Negative Last Edit by Andreia Plummer CMA on 07/16/25 14:16 UR Specific [place] 1.010 Last Edit by Andreia Plummer CMA on 07/16/25 14:16 UR Ketone Negative Last Edit by Andreia Plummer CMA on 07/16/25 14:16 UR Bilirubin Negative Last Edit by Andreia Plummer CMA on 07/16/25 14:16 UR Glucose Negative Last Edit by Andreia Plummer CMA on 07/16/25 14:16 Assessment & Plan Assessment & Plan (1) ASCUS with positive high risk HPV cervical: Code(s): R87.610 - Atypical squamous cells of undetermined significance on cytologic smear of cervix (ASC-US); R87.810 - Cervical high risk human papillomavirus (HPV) DNA test positive Category: Medical Plan: Discussed with the patient the pathology results of the colposcopy biopsies & endocervical curettage ( negative). Discussed with the patient the sensitivity specificity, positive and negative predictive value in detecting cervical cancer in addition discussed the regression, persistence and progression rates. Recommended co-testing in 12 months, if cytology and or HPV are abnormal will pr oceed was colposcopy biopsy and endocervical curettage. Instructions given to the patient to schedule a co test appointment in 1 year. All questions answered the patient verbalized understanding. (2) Pelvic pain: Code(s): R10.2 - Pelvic and perineal pain Category: Medical Plan: Urine dip and test done in the office were both negative. Will defer pelvic ultrasound since last ultrasound was done 2 weeks ago. Explained to the patient her pelvic exam within normal with no evidence of endometritis. GC and chlamydia taken instructions given to patient to call if pain is persistent or gets worse any fever above 100.4, nausea or vomiting will move pelvic ultrasound to newly date (3) Abnormal uterine bleeding (AUB): Comment: Elevated FSH/LH Code(s): N93.9 - Abnormal uterine and vaginal bleeding, unspecified Category: Medical Plan: Discussed with the patient the results of the workup including elevated FSH/LH, diagnose menopause. Instructions given the patient to call if any future vaginal bleeding occurs (4) Ovarian cyst: Code(s): N83.209 - Unspecified ovarian cyst, unspecified side Category: Medical Plan: Explained to the patient the finding on ultrasound showing a simple ovarian cyst, recommended repeat ultrasound in 3 months, order placed. Instructions given the patient to call in case of pelvic pain persist or get worse. Otherwise follow-up in 3 months for follow-up ultrasound. Orders: Orders AMB HCG Urine Test Today R10.2 - Pelvic and perineal pain, Z32.02 - Encounter for test, result negative US pelvic and transvaginal Today N83.209 - Unspecified ovarian cyst, unspecified side AMB Urinalysis Dipstick Today R10.2 - Pelvic and perineal pain, Z32.02 - Encounter for test, result negative Coding Level of Care Code Est Pt Level 3 (67581) Diagnoses ASCUS with positive high risk HPV cervical R87.610; R87.810 Pelvic pain R10.2 Abnormal uterine bleeding (AUB) N93.9 Ovarian cyst N83.209
[2025-07-16 14:14] VITALS: BMI 32.5
--- OUTSIDE RECORDS SUMMARY | 2025-07-16 16:33 | XMS_ITS | Patient Health Record ---
[facility] Address [address] [place] [address] Care Team Providers Care Industrial Security Analyst Name Role Phone Holly SMITH, Ailyn Primary Care Provider Unavail able Migdalia Luis Unavailable [phone] Allergies Allergen (clinical drug ingredient) Drug/Non Drug [...] Coverage End Date Blue Benefits [address] [address] [place] [address] [id number] Katlyn Shaikh Self - patient is the insured Medical (General) History Medical History History ICD Code Anemia asthma Cancer Kidney disease Numbness Neuropathy Sciatica Chicken pox Joint implants/screws Transfusions Surgical History Surgery Date(Month/Year) knee surgery, left / complication: blood clot/DVT 2006 colon cancer 2013 portacath placement 2012 Ingrown Toe Nail 2000
--- OUTSIDE RECORDS SUMMARY | 2025-07-16 16:33 | XMS_ITS | Clinical Summary ---
Author Organization [facility] Address [address] [address] Phone Care Team Providers Care Traveling Inventory Associate Name Role Phone Ailyn Fishman MD Primary [...] 08/23/2021 08/23/2018 Adult Td,Tdap Booster 10/14/2021 10/14/2011 INFLUENZA VACCINE (#1) 2025 , 08/28/2019, 08/23/2018 COVID-19 VACCINE (3 - 2024-2 6 season) 2025 11/14/2020, 10/24/2020 COLONOSCOPY 04/17/2028 04/17/2018, 09/22/2015 COLORECTAL [...] 43 Admit Type: Outpatient Gender: Female Room: [place] [address] Referring MD: PAUL WATT MD Exam Type: [...] 12:14 PM Procedure Code(s): --- Professional --- 49212, Colonoscopy, flexible; with biopsy, single or multiple --- Technical --- 44702, Colonoscopy, flexible; with biopsy, single or multiple Diagnosis Code(s): --- Professional --- Z85.038, Personal history of other malignant neoplasm of largeintestine Z98.0, 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 All rights reserved. The codes documented in this report are preliminary and upon report manager reviewmay be revised to meet current compliance requirements. [address] [place] [address] [id number] Paul Watt DO GI PROCEDURE ORDERABLES Final Re sult from Last 3 Months or Most Recently Relevant to Health Maintenance Insurance [employer] [address] [address] [place] [address] [place] [address] [facility] [place] [address] [place] [address] [address] [place] [address] Member Subscriber Plan / Payer (Ef fective 2018-Present) Name:Katlyn Shaihk Relation to Subscriber:Self Name:Katlyn Shaikh Payer ID:[id number] (NAIC) Type:PPO Address: [address] [place] [employer] [facility] [employer] Member Subscriber Plan / Payer (Ef fective 2019-Present) Name:Katlyn Shaikh Relation to Subscriber:Self Name:Katlyn Shaikh Payer ID:[id number] (NAIC) Type:PPO Address: [place] [id number] Care Teams Traveling Inventory Associate Relationship Specialty Start Date End Date Ailyn Fishman MD [address] [place] [address] PCP - General Internal Medicine 12/11/23 Additional Source Comments The information contained in this document represents components of the legal health record. It is not the complete legal health record.[facility]
--- OUTSIDE RECORDS SUMMARY | 2025-07-16 16:33 | XMS_ITS | Encounter Summary ---
Author Organization [facility] Address [address] [address] Phone Care Team Providers Care Compensation Programs Manager Name Role Phone Paul Watt DO Primary Care Provider [phone] Paul Watt DO Unavailable Karlie Wright MD, MPH Primary Care Provid er Karlie Wright MD, MPH Primary Care Provid er Paul Watt DO Unavailable Karlie Wright MD, MPH Unavailable [phone] Pcp, Unknown Primary Care Provider Unavailabl e Ailyn Fishman MD Primary Care Provid er Encounter Details Date Type Department Care Team (Late st Contact Info) Description 02/22/2018 Transcribe Orders [facility] [address] [place] [address] Debra Forte, MANAGER BRIDGE [address] [facility] [place] [address] Abdominal pain, unspecified abdominal location (Primary Dx) [...] EDT) Specimen Source/ Description STOOL STOOL STOOL [facility] Special Requests None [facility] DIRECT EXAM No parasites found by Trichrome Stain [facility] DIRECT EXAM NO PARASITES FOUND BY DIRECT OR CONCENTRATION METHODS [facility] Report Status 03/02/2018 FINAL [facility] Stool (Stool) 02/21/2018 9:0 0 AM EDT 02/22/2018 11:42 AM EDT us Debra Forte CNP MICROBIOLOGY - GENERA L ORDERABLES Final Result Performing Organization Address [facility] Co de Phone Number [address] [address] * Ova and parasites, stool (02/17/2018 6:00 PM EDT) Specimen Source/ Description STOOL STOOL STOOL [facility] Special Requests None [facility] DIRECT EXAM No parasites found by Trichrome Stain [facility] DIRECT EXAM NO PARASITES FOUND BY DIRECT OR CONCENTRATION METHODS [facility] Report Status 03/02/2018 FINAL [facility] Stool (Stool) 02/17/2018 6:0 0 PM EDT 02/22/2018 11:41 AM EDT Debra Forte CNP MICROBIOLOGY - GENERA L ORDERABLES Final Result Performing Organization Address [facility] Co de Phone Number [address] [address] documented in this encounter Visit Diagnoses Diagnosis Abdominal pain, unspecified abdominal location- Primary documented in this encounter Care Teams Compensation Programs Manager Relationship Specialty Start Date End Date Paul Watt DO [address] [place] [address] [email or web address] PCP - General Family Medicine 11/10/17 08/11/18 Karlie Wright MD, MPH [address] [address] [email or web address] PCP - General Family Medicine 08/12/18 09/10/18 Karlie Wright MD, MPH [address] [place] [address] [email or web address] PCP - General Family Medicine 09/11/18 06/21/21 Pcp, Unknown PCP - General 06/22/21 12/10/23 Ailyn Fishman MD [address] [place] [address] PCP - General Internal Medicine 12/11/23 Paul Watt DO [address] [place] [address] [email or web address] Insurance Assigned Provider 02/04/18 08/12/18 Paul Watt DO [address] [place] [address] [email or web address] Insurance Assigned Provider 04/08/19 06/12/20 Karlie Wright MD, MPH [address] [place] [address] [email or web address] Insurance Assigned Provider 05/16/21 09/12/21 documented as of this encounter Additional Source Comments The information contained in this document represents components of the legal health record. It is not the complete legal health record.[facility]
--- OUTSIDE RECORDS SUMMARY | 2025-07-16 16:33 | XMS_ITS | Encounter Summary ---
Author Organization [facility] Address [address] [facility] [address] [place] [address] Phone Care Team Providers Care Credit Associate Name Role Phone Paul Watt DO Primary Care Provider [phone] Paul Watt DO Unavailable Karlie Wright MD, MPH Primary Care Provid er Karlie Wright MD, MPH Primary Care Provid er Paul Watt DO Unavailable Karlie Wright MD, MPH Unavailable [phone] Pcp, Unknown Primary Care Provider Unavailabl e Ailyn Fishman MD Primary Care Provid er Encounter Details Date Type Department Care Team (Late st Contact Info) Description 02/20/2018 Procedure Pass [facility], Ct Scan - [address] [address] Social History Tobacco Use Types Packs/Day Years [...] on filedocumented in this encounter Care Teams Credit Associate Relationship Specialty Start Date End Date Paul Watt DO [address] [place] [address] [email or web address] PCP - General Family Medicine 11/10/17 08/11/18 Karlie Wright MD, MPH [address] [place] [address] [email or web address] PCP - General Family Medicine 08/12/18 09/10/18 Karlie Wright MD, MPH [address] [place] [address] [email or web address] PCP - General Family Medicine 09/11/18 06/21/21 Pcp, Unknown PCP - General 06/22/21 12/10/23 Ailyn Fishman MD [address] [place] [address] PCP - General Internal Medicine 12/11/23 Paul Watt DO [address] [place] [address] [email or web address] Insurance Assigned Provider 02/04/18 08/12/18 Paul Watt DO [address] [place] [address] [email or web address] Insurance Assigned Provider 04/08/19 06/12/20 Karlie Wright MD, MPH [address] [address] [email or web address] Insurance Assigned Provider 05/16/21 09/12/21 documented as of this encounter Additional Source Comments The information contained in this document represents components of the legal health record. It is not the complete legal health record.[facility]
--- OUTSIDE RECORDS SUMMARY | 2025-07-16 16:33 | XMS_ITS | Encounter Summary ---
Author Organization [facility] Address [address] [facility] [address] [place] [address] Phone Care Team Providers Care Harness Installer Name Role Phone Paul Watt DO Primary Care Provider [phone] Paul Watt DO Unavailable Karlie Wright MD, MPH Primary Care Provid er Karlie Wright MD, MPH Primary Care Provid er Paul Watt DO Unavailable Karile Wright MD, MPH Unavailable [phone] Pcp, Unknown Primary Care Provider Unavailabl e Ailyn Fishman MD Primary Care Provid er Encounter Details Date Type Department Care Team (Late st Contact Info) Description 04/17/2018 Procedure Pass [facility] Endoscopy Admitting Dept Virtual Department [address] [place] [address] Social History Tobacco Use Types Packs/Day Years [...] on filedocumented in this encounter Care Teams Harness Installer Relationship Specialty Start Date End Date Paul Watt DO [address] [place] [address] [email or web address] PCP - General Family Medicine 11/10/17 08/11/18 Karlie Wright MD, MPH [address] [place] [address] [email or web address] PCP - General Family Medicine 08/12/18 09/10/18 Karlie Wright MD, MPH [address] [place] [address] [email or web address] PCP - General Family Medicine 09/11/18 06/21/21 Pcp, Unknown PCP - General 06/22/21 12/10/23 Ailyn Fishman MD [address] [place] [address] PCP - General Internal Medicine 12/11/23 Paul aWtt DO [address] [place] [address] [email or web address] Insurance Assigned Provider 02/04/18 08/12/18 Paul Watt DO [address] [place] [address] Insurance Assigned Provider 04/08/19 06/12/20 Karlie Wright MD, MPH [address] [address] [email or web address] Insurance Assigned Provider 05/16/21 09/12/21 documented as of this encounter Additional Source Comments The information contained in this document represents components of the legal health record. It is not the complete legal health record.[facility]
--- OUTSIDE RECORDS SUMMARY | 2025-07-16 16:33 | XMS_ITS | Encounter Summary ---
Author Organization [facility] Address [address] [facility] [address] [place] [address] Phone Care Team Providers Care Candle Extrusion Machine Operator Name Role Phone Paul Watt DO Primary Care Provider [phone] Paul Watt DO Unavailable Karlie Wright MD, MPH Primary Care Provid er Karlie Wright MD, MPH Primary Care Provid er Paul Watt DO Unavailable Karlie Wright MD, MPH Unavailable [phone] Pcp, Unknown Primary Care Provider Unavailabl e Ailyn Fishman MD Primary Care Provid er Encounter Details Date Type Department Care Team (Late st Contact Info) Description 07/03/2018 Ancillary Orders Virtual Department [address] [place] [address] Willie Strong MD [address] [place] [address], [address] [address] [email or web address] Calculus of kidney Social History Tobacco Use [...] kidney documented in this encounter Care Teams Candle Extrusion Machine Operator Relationship Specialty Start Date End Date Paul Watt DO [address] [place] [address] [email or web address] PCP - General Family Medicine 11/10/17 08/11/18 Karlie Wright MD, MPH [address] [place] [address] [email or web address] PCP - General Family Medicine 08/12/18 09/10/18 Karlie Wright MD, MPH [address] [place] [address] [email or web address] PCP - General Family Medicine 09/11/18 06/21/21 Pcp, Unknown PCP - General 06/22/21 12/10/23 Ailyn Fishman MD [address] [place] [address] PCP - General Internal Medicine 12/11/23 Paul Watt DO [address] [place] [address] [email or web address] Insurance Assigned Provider 02/04/18 08/12/18 Paul Watt DO [address] [place] [address] [email or web address] Insurance Assigned Provider 04/08/19 06/12/20 Karlie Wright MD, MPH [address] [place], [place] [phone] [email or web address] Insurance Assigned Provider 05/16/21 09/12/21 documented as of this encounter Additional Source Comments The information contained in this document represents components of the legal health record. It is not the complete legal health record.[facility]
--- OUTSIDE RECORDS SUMMARY | 2025-07-16 16:33 | XMS_ITS | Encounter Summary ---
Author Organization [facility] Address [address] [facility] [address] [place] [address] Phone Care Team Providers Care Equipment Processer Storage Name Role Phone Paul Watt DO Primary Care Provider [phone] Paul Watt DO Unavailable Karlie Wright MD, MPH Primary Care Provid er Karlie Wright MD, MPH Primary Care Provid er Paul Watt DO Unavailable Karlie Wright MD, MPH Unavailable [phone] Pcp, Unknown Primary Care Provider Unavailabl e Ailyn Fishman MD Primary Care Provid er Encounter Details Date Type Department Care Team (Latest Contact Info) Description 01/20/2018 Ancillary Orders Virtual Department [address] [place] [address] Taras Rivers MD [address] [place] [address] [address]_[place] [address] [email or web address] 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) documented in this encounter Care Teams Equipment Processer Storage Relationship Specialty Start Date End Date Paul Watt DO [address] [place] [address] [email or web address] PCP - General Family Medicine 11/10/17 08/11/18 Karlie Wright MD, MPH [address] [place] [address] [email or web address] PCP - General Family Medicine 08/12/18 09/10/18 Karlie Wright MD, MPH [address] [place] [address] [email or web address] PCP - General Family Medicine 09/11/18 06/21/21 Pcp, Unknown PCP - General 06/22/21 12/10/23 Ailyn Fishman MD [address] [place] [address] PCP - General Internal Medicine 12/11/23 Paul Watt DO [address] [place] [address] [email or web address] Insurance Assigned Provider 02/04/18 08/12/18 Paul Watt DO [address] [place] [address] Insurance Assigned Provider 04/08/19 06/12/20 Karlie Wright MD, MPH [address] [place] [address] [email or web address] Insurance Assigned Provider 05/16/21 09/12/21 documented as of this encounter Additional Source Comments The information contained in this document represents components of the legal health record. It is not the complete legal health record.[facility]
--- OUTSIDE RECORDS SUMMARY | 2025-07-16 16:33 | XMS_ITS | Encounter Summary ---
Author Organization [facility] Address [address] [facility] [address] [place] [address] Phone Care Team Providers Care Handicrafts Teacher Name Role Phone Paul Watt DO Primary Care Provider [phone] Paul Watt DO Unavailable Karlie Wright MD, MPH Primary Care Provid er Karlie Wright MD, MPH Primary Care Provid er Paul Watt DO Unavailable Karlie Wright MD, MPH Unavailable [phone] Pcp, Unknown Primary Care Provider Unavailabl e Ailyn Fishman MD Primary Care Provid er Encounter Details Date Type Department Care Team (Late st Contact Info) Description 02/14/2018 Transcribe Orders [facility] [address] [place] [address] Paul Watt DO 29 [facility] [place] [address] [email or web address] Social History Tobacco Use Types Packs/Day Years [...] on filedocumented in this encounter Care Teams Handicrafts Teacher Relationship Specialty Start Date End Date Paul Watt DO [address] [place] [address] [email or web address] PCP - General Family Medicine 11/10/17 08/11/18 Karlie Wright MD, MPH [address] [place] [address] [email or web address] PCP - General Family Medicine 08/12/18 09/10/18 Karlie Wright MD, MPH [address] [place] [address] [email or web address] PCP - General Family Medicine 09/11/18 06/21/21 Pcp, Unknown PCP - General 06/22/21 12/10/23 Ailyn Fishman MD [address] [place] [address] PCP - General Internal Medicine 12/11/23 Paul Watt DO [address] [place] [address] [email or web address] Insurance Assigned Provider 02/04/18 08/12/18 Paul Watt DO [address] [place] [address] [email or web address] Insurance Assigned Provider 04/08/19 06/12/20 Karlie Wright MD, MPH [address] [place] [address] [email or web address] Insurance Assigned Provider 05/16/21 09/12/21 documented as of this encounter Additional Source Comments The information contained in this document represents components of the legal health record. It is not the complete legal health record.[facility]
--- OUTSIDE RECORDS SUMMARY | 2025-07-16 16:33 | XMS_ITS | Encounter Summary ---
Author Organization [facility] Address [address] [facility] [address] [place] [address] Phone Care Team Providers Care Metal Roofing Mechanic Name Role Phone Paul Watt DO Primary Care Provider [phone] Paul Watt DO Unavailable Karlie Wright MD, MPH Primary Care Provid er Karlie Wright MD, MPH Primary Care Provid er Paul Watt DO Unavailable Karlie Wright MD, MPH Unavailable [phone] Pcp, Unknown Primary Care Provider Unavailabl e Ailyn Fishman MD Primary Care Provid er Encounter Details Date Type Department Care Team (Late st Contact Info) Description 02/20/2018 Procedure Pass [facility], Ct Scan - [address] [address] Social History Tobacco Use Types Packs/Day Years [...] on filedocumented in this encounter Care Teams Metal Roofing Mechanic Relationship Specialty Start Date End Date Paul Watt DO [address] [place] [address] [email or web address] PCP - General Family Medicine 11/10/17 08/11/18 Karlie Wright MD, MPH [address] [place] [address] [email or web address] PCP - General Family Medicine 08/12/18 09/10/18 Karlie Wright MD, MPH [address] [place] [address] [email or web address] PCP - General Family Medicine 09/11/18 06/21/21 Pcp, Unknown PCP - General 06/22/21 12/10/23 Ailyn Fishman MD [address] [place] [address] PCP - General Internal Medicine 12/11/23 Paul Watt DO [address] [place] [address] [email or web address] Insurance Assigned Provider 02/04/18 08/12/18 Paul Watt DO [address] [place] [address] [email or web address] Insurance Assigned Provider 04/08/19 06/12/20 Karlie Wright MD, MPH [address] [address] [email or web address] Insurance Assigned Provider 05/16/21 09/12/21 documented as of this encounter Additional Source Comments The information contained in this document represents components of the legal health record. It is not the complete legal health record.[facility]
== END 2025-07-16 14:31 | disposition home or self-care (01) ==
LOC: HO.HWS 13:53
PROVIDERS: PCP Internal Medicine; Visit Provider Obstetrics & Gynecology
DX: R87.610 Atypical squamous cells of undetermined significance on cytologic smear of cervix (ASC-US) (principal); R87.810 Cervical high risk human papillomavirus (HPV) DNA test positive; R10.2 Pelvic and perineal pain; N93.9 Abnormal uterine and vaginal bleeding, unspecified; N83.209 Unspecified ovarian cyst, unspecified side; Z32.02 Encounter for pregnancy test, result negative
CPT/HCPCS: 99213

== ENCOUNTER 2025-07-16 13:53 | Outpatient (REF) | payer OTHER, SELFPAY ==
[2025-07-17 03:33] LABS: Bacterial Vaginosis PCR POSITIVE (Negative); Candida Group PCR NOT DETECTED (Not Detect); Candida glab krusei PCR NOT DETECTED (Not Detect); Trichomonas vaginalis PCR NOT DETECTED (Not Detect)
[2025-07-17 04:04] LABS: CT PCR NOT DETECTED (Not Detect.); NG PCR NOT DETECTED (Not Detect.)
== END 2025-07-16 13:54 | disposition home or self-care (01) ==
LOC: HO.LNP 13:53
PROVIDERS: PCP Internal Medicine; Visit Provider Obstetrics & Gynecology
DX: R87.610 Atypical squamous cells of undetermined significance on cytologic smear of cervix (ASC-US) (principal); R87.810 Cervical high risk human papillomavirus (HPV) DNA test positive; R10.2 Pelvic and perineal pain; N93.9 Abnormal uterine and vaginal bleeding, unspecified; N83.209 Unspecified ovarian cyst, unspecified side; Z32.02 Encounter for pregnancy test, result negative
CPT/HCPCS: 81002; 81025; 81515; 87491; 87591

== ENCOUNTER 2025-07-19 06:15 | Outpatient (REF) | payer OTHER, SELFPAY ==
--- OUTSIDE RECORDS SUMMARY | 2025-07-19 06:19 | XMS_ITS | Encounter Summary ---
Author Organization [facility] Address [address] [facility] [address] [place] [address] Phone Care Team Providers Care Multiple Knife Edge Trimmer Operator Name Role Phone Paul Watt DO Primary Care Provider Paul Watt DO Unavailable Karlie Wright MD, MPH Primary Care Provid er Karlie Wright MD, MPH Primary Care Provid er Paul Watt DO Unavailable Karlie Wright MD, MPH Unavailable [phone] Pcp, Unknown Primary Care Provider Unavailabl e Ailyn Fishman MD Primary Care Provid er Encounter Details Date Type Department Care Team (Late st Contact Info) Description 07/03/2018 Ancillary Orders Virtual Department [address] [place] [address] Willie Strong MD [address] [place] [address], [address] [address] [email or web address] Calculus of kidney Social History Tobacco Use [...] kidney documented in this encounter Care Teams Multiple Knife Edge Trimmer Operator Relationship Specialty Start Date End Date Paul Watt DO [address] [place] [address] [email or web address] PCP - General Family Medicine 11/10/17 08/11/18 Karlie Wright MD, MPH [address] [place] [address] [email or web address] PCP - General Family Medicine 08/12/18 09/10/18 Karlie Wright MD, MPH [address] [place] [address] [email or web address] PCP - General Family Medicine 09/11/18 06/21/21 Pcp, Unknown PCP - General 06/22/21 12/10/23 Ailyn Fishman MD 5 [place] [address] PCP - General Internal Medicine 12/11/23 Paul Watt DO [address] [place] [address] [email or web address] Insurance Assigned Provider 02/04/18 08/12/18 Paul Watt DO [address] [place] [address] [email or web address] Insurance Assigned Provider 04/08/19 06/12/20 Karlie Wright MD, MPH [address] [place], [place] [phone] [email or web address] Insurance Assigned Provider 05/16/21 09/12/21 documented as of this encounter Additional Source Comments The information contained in this document represents components of the legal health record. It is not the complete legal health record.[facility]
--- OUTSIDE RECORDS SUMMARY | 2025-07-19 06:19 | XMS_ITS | Encounter Summary ---
Author Organization [facility] Address [address] [facility] [address] [place] [address] Phone Care Team Providers Care Oncology Physician Assistant Name Role Phone Paul Watt DO Primary Care Provider [phone] Paul Watt DO Unavailable Karlie Wright MD, MPH Primary Care Provid er Karlie Wright MD, MPH Primary Care Provid er Paul Watt DO Unavailable Karlie Wright MD, MPH Unavailable [phone]- [phone] Pcp, Unknown Primary Care Provider Unavailabl e Ailyn Fishman MD Primary Care Provid er Encounter Details Date Type Department Care Team (Late st Contact Info) Description 02/14/[address]cribe [address] [facility] [address] [place] [address] Paul Watt DO 29 [facility] [place] [facility] [place] [address] [email or web address] Social History Tobacco Use Types Packs/Day Years [...] on filedocumented in this encounter Care Teams Oncology Physician Assistant Relationship Specialty Start Date End Date Paul Watt DO [address] [place] [address] [email or web address] PCP - General Family Medicine 11/10/17 08/11/18 Karlie Wright MD, MPH [address] [place] [address] [email or web address] PCP - General Family Medicine 08/12/18 09/10/18 Karlie Wright MD, MPH [address] [place] [address] [email or web address] PCP - General Family Medicine 09/11/18 06/21/21 Pcp, Unknown PCP - General 06/22/21 12/10/23 Ailyn Fishman MD 5 [place] [address] PCP - General Internal Medicine 12/11/23 Paul Watt DO [address] [place] [address] [email or web address] Insurance Assigned Provider 02/04/18 08/12/18 Paul Watt DO [address] [place] [address] [email or web address] Insurance Assigned Provider 04/08/19 06/12/20 Karlie Wright MD, MPH [address] [place] [address] [email or web address] Insurance Assigned Provider 05/16/21 09/12/21 documented as of this encounter Additional Source Comments The information contained in this document represents components of the legal health record. It is not the complete legal health record.[facility]
--- OUTSIDE RECORDS SUMMARY | 2025-07-19 06:19 | XMS_ITS | Encounter Summary ---
Author Organization [facility] Address [address] [facility] [address] [place] [address] Phone Care Team Providers Care Dredge Lever Operator Name Role Phone Paul Watt DO Primary Care Provider [phone] Paul Watt DO Unavailable Karlie Wright MD, MPH Primary Care Provid er Karlie Wright MD, MPH Primary Care Provid er Paul Watt DO Unavailable Karlie Wright MD, MPH Unavailable [phone] Pcp, Unknown Primary Care Provider Unavailabl e Ailyn Fishman MD Primary Care Provid er Encounter Details Date Type Department Care Team (Late st Contact Info) Description 04/17/2018 Procedure Pass [facility] Admitting Dept Virtual Department [address] [place] [address] Social History Tobacco Use Types Packs/Day Years [...] on filedocumented in this encounter Care Teams Dredge Lever Operator Relationship Specialty Start Date End Date Paul Watt DO [address] [place] [address] [email or web address] PCP - General Family Medicine 11/10/17 08/11/18 Karlie Wright MD, MPH [address] [place] [address] [email or web address] PCP - General Family Medicine 08/12/18 09/10/18 Karlie Wright MD, MPH [address] [place] [address] [email or web address] PCP - General Family Medicine 09/11/18 06/21/21 Pcp, Unknown PCP - General 06/22/21 12/10/23 Ailyn Fishman MD [address] [place] [address] PCP - General Internal Medicine 12/11/23 Paul Watt DO [address] [place] [address] [email or web address] Insurance Assigned Provider 02/04/18 08/12/18 Paul Watt DO [address] [place] [address] Insurance Assigned Provider 04/08/19 06/12/20 Karlie Wright MD, MPH [address] [address] [email or web address] Insurance Assigned Provider 05/16/21 09/12/21 documented as of this encounter Additional Source Comments The information contained in this document represents components of the legal health record. It is not the complete legal health record.[facility]
--- OUTSIDE RECORDS SUMMARY | 2025-07-19 06:19 | XMS_ITS | Encounter Summary ---
Author Organization [facility] Address [address] [facility] [address] [place] [address] Phone Care Team Providers Care General Machinist Name Role Phone Paul Watt DO Primary Care Provider [phone] Paul Watt DO Unavailable Karlie Wright MD, MPH Primary Care Provid er Karlie Wright MD, MPH Primary Care Provid er Paul Watt DO Unavailable Karlie Wright MD, MPH Unavailable [phone] Pcp, Unknown Primary Care Provider Unavailabl e Ailyn Fishman MD Primary Care Provid er Encounter Details Date Type Department Care Team (Late st Contact Info) Description 02/20/2018 Procedure Pass [facility], Ct Scan - [address] [address] Social History Tobacco Use Types Packs/Day Years [...] on filedocumented in this encounter Care Teams General Machinist Relationship Specialty Start Date End Date Paul Watt DO [address] [place] [address] [email or web address] PCP - General Family Medicine 11/10/17 08/11/18 Karlie Wright MD, MPH [address] [place] [address] [email or web address] PCP - General Family Medicine 08/12/18 09/10/18 Karlie Wright MD, MPH [address] [place] [address] [email or web address] PCP - General Family Medicine 09/11/18 06/21/21 Pcp, Unknown PCP - General 06/22/21 12/10/23 Ailyn Fishman MD [address] [place] [address] PCP - General Internal Medicine 12/11/23 Paul Watt DO [address] [place] [address] [email or web address] Insurance Assigned Provider 02/04/18 08/12/18 Paul Watt DO [address] [place] [address] [email or web address] Insurance Assigned Provider 04/08/19 06/12/20 Karlie Wright MD, MPH [address] [address] [email or web address] Insurance Assigned Provider 05/16/21 09/12/21 documented as of this encounter Additional Source Comments The information contained in this document represents components of the legal health record. It is not the complete legal health record.[facility]
--- OUTSIDE RECORDS SUMMARY | 2025-07-19 06:19 | XMS_ITS | Clinical Summary ---
Author Organization 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 All rights reserved. The codes documented in this report are preliminary and upon medical record coder reviewmay be revised to meet current compliance requirements. [address] [place] [address] [id number] Paul Watt DO GI PROCEDURE ORDERABLES Final Re sult from Last 3 Months or Most Recently Relevant to Health Maintenance Insurance [employer] [address] [place] [address] [place] [address] [place] [address] [facility] [place] [address] [address] [place] [address] [place] [address] [place] [address] Member Subscriber Plan / Payer (Ef fective 2018-Present) Name:Katlyn Shaikh Relation to Subscriber:Self Name:Katlyn Shaikh Payer ID:[id number] (NAIC) Type:PPO Address: [address] [employer] ADMINISTRATORS [facility] [employer] Member Subscriber Plan / Payer (Ef fective 2019-Present) Name:Katlyn Shaikh Relation to Subscriber:Self Name:Katlyn Shaikh Payer ID:[id number] (NAIC) Type:PPO Address: [place] [id number] Care Teams Wet Process Assistant Head Miller Relationship Specialty Start Date End Date Ailyn Fishman MD 5 [place] [address] PCP - General Internal Medicine 12/11/23 Additional Source Comments The information contained in this document represents components of the legal health record. It is not the complete legal health record.[facility]
--- OUTSIDE RECORDS SUMMARY | 2025-07-19 06:19 | XMS_ITS | Encounter Summary ---
Author Organization [facility] Address [address] [facility] [address] [place] [address] Phone Care Team Providers Care Medical Sociologist Name Role Phone Paul Watt DO Primary Care Provider [phone] Paul Watt DO Unavailable Karlie Wright MD, MPH Primary Care Provid er Karlie Wright MD, MPH Primary Care Provid er Paul Watt DO Unavailable Karlie Wright MD, MPH Unavailable [phone] Pcp, Unknown Primary Care Provider Unavailabl e Ailyn Fishman MD Primary Care Provid er Encounter Details Date Type Department Care Team (Late st Contact Info) Description 02/20/2018 Procedure Pass [facility], Ct Scan - [address] [address] Social History Tobacco Use Types Packs/Day Years [...] on filedocumented in this encounter Care Teams Medical Sociologist Relationship Specialty Start Date End Date Paul Watt DO [address] [place] [address] [email or web address] PCP - General Family Medicine 11/10/17 08/11/18 Karlie Wright MD, MPH [address] [place] [address] [email or web address] PCP - General Family Medicine 08/12/18 09/10/18 Karlie Wright MD, MPH [address] [place] [address] [email or web address] PCP - General Family Medicine 09/11/18 06/21/21 Pcp, Unknown PCP - General 06/22/21 12/10/23 Ailyn Fishman MD [address] [place] [address] PCP - General Internal Medicine 12/11/23 Paul Watt DO [address] [place] [address] [email or web address] Insurance Assigned Provider 02/04/18 08/12/18 Paul Watt DO [address] [place] [address] [email or web address] Insurance Assigned Provider 04/08/19 06/12/20 Karlie Wright MD, MPH [address] [address] [email or web address] Insurance Assigned Provider 05/16/21 09/12/21 documented as of this encounter Additional Source Comments The information contained in this document represents components of the legal health record. It is not the complete legal health record.[facility]
--- OUTSIDE RECORDS SUMMARY | 2025-07-19 06:19 | XMS_ITS | Encounter Summary ---
Author Organization [facility] Address [address] [address] Phone Care Team Providers Care Skein Tier Name Role Phone Paul Watt DO Primary Care Provider [phone] Paul Watt DO Unavailable Karlie Wright MD, MPH Primary Care Provid er Karlie Wright MD, MPH Primary Care Provid er Paul Watt DO Unavailable Karlie Wright MD, MPH Unavailable [phone] Pcp, Unknown Primary Care Provider Unavailabl e Ailyn Fishman MD Primary Care Provid er Encounter Details Date Type Department Care Team (Late st Contact Info) Description 02/22/2018 Transcribe Orders [facility] [address] [place] [phone] Debra Forte, MOVIE ACTOR [address] [facility] [place] [address] Abdominal pain, unspecified abdominal location (Primary Dx) [...] EDT) Specimen Source/ Description STOOL STOOL STOOL [facility] Special Requests None [facility] DIRECT EXAM No parasites found by Trichrome Stain [facility] DIRECT EXAM NO PARASITES FOUND BY DIRECT OR CONCENTRATION METHODS [facility] Report Status 03/02/2018 FINAL [facility] Stool (Stool) 02/21/2018 9:0 0 AM EDT 02/22/2018 11:42 AM EDT us Debra Forte CNP MICROBIOLOGY - GENERA L ORDERABLES Final Result Performing Organization Address [facility] Co de Phone Number [address] [address] * Ova and parasites, stool (02/17/2018 6:00 PM EDT) Specimen Source/ Description STOOL STOOL STOOL [facility] Special Requests None [facility] DIRECT EXAM No parasites found by Trichrome Stain [facility] DIRECT EXAM NO PARASITES FOUND BY DIRECT OR CONCENTRATION METHODS [facility] Report Status 03/02/2018 FINAL [facility] Stool (Stool) 02/17/2018 6:0 0 PM EDT 02/22/2018 11:41 AM EDT Debra Forte CNP MICROBIOLOGY - GENERA L ORDERABLES Final Result Performing Organization Address [facility] Co de Phone Number [address] [address] documented in this encounter Visit Diagnoses Diagnosis Abdominal pain, unspecified abdominal location- Primary documented in this encounter Care Teams Skein Tier Relationship Specialty Start Date End Date Paul Watt DO [address] [place] [phone] [email or web address] PCP - General Family Medicine 11/10/17 08/11/18 Karlie Wright MD, MPH [address] [address] [email or web address] PCP - General Family Medicine 08/12/18 09/10/18 Karlie Wright MD, MPH [address] [place] [address] [email or web address] PCP - General Family Medicine 09/11/18 06/21/21 Pcp, Unknown PCP - General 06/22/21 12/10/23 Ailyn Fishman MD [address] [place] [address] PCP - General Internal Medicine 12/11/23 Paul Watt DO [address] [place] [phone] [email or web address] Insurance Assigned Provider 02/04/18 08/12/18 Paul Watt DO [address] [place] [address] [email or web address] Insurance Assigned Provider 04/08/19 06/12/20 Karlie Wright MD, MPH [address] [place] [address] [email or web address] Insurance Assigned Provider 05/16/21 09/12/21 documented as of this encounter Additional Source Comments The information contained in this document represents components of the legal health record. It is not the complete legal health record.[facility]
--- OUTSIDE RECORDS SUMMARY | 2025-07-19 06:19 | XMS_ITS | Patient Health Record ---
[facility] Address [address] [place] [address] Care Team Providers Care Automotive Electrical Helper Name Role Phone Holly SMITH, Ailyn Primary Care Provider Unavail able Migdalia Luis Unavailable [phone] Allergies Allergen (clinical drug ingredient) Drug/Non Drug [...] Coverage End Date Blue Benefits [address] [address] [place] [address] [id number] Katlyn Shaikh Self - patient is the insured Medical (General) History Medical History History ICD Code Anemia asthma Cancer Kidney disease Numbness Neuropathy Sciatica Chicken pox Joint implants/screws Transfusions Surgical History Surgery Date(Month/Year) knee surgery, left / complication: blood clot/DVT 2006 colon cancer 2013 portacath placement 2012 Ingrown Toe Nail 2000
[2025-07-19 06:28] LABS: MANUAL DIFF FLAG NO
[2025-07-19 07:37] LABS: Hematocrit 39.2 % (37.0-47.0); Hemoglobin 13.1 g/dl (12.0-16.0); Imm Gran Abs Auto 0.02 X10*3/uL (0.00-0.03); Imm Gran Pct Auto 0.3 % (0.0-0.4); Lymphocytes Absolute Auto 1.0 X10*3/uL (1.2-4.9); Mean Corpuscular HGB Conc 33.4 g/dl (31.0-35.0); Mean Corpuscular Hemoglobin 30.6 pg (27.0-33.0); Mean Corpuscular Volume 91.6 fL (80.0-98.0); NRBC Abs Auto 0.000 X10*3/uL (0.0-0.012); NRBC Pct Auto 0.0 /100WBC (0.0-0.2); Platelet Count 184 X10*3/uL (160-400); Red Blood Count 4.28 X10*6/uL (4.20-5.50); White Blood Count 6.4 X10*3/uL (4.8-10.8)
[2025-07-19 08:16] LABS: Alanine Aminotransferase 60 U/L (0-31); Albumin Level 4.9 g/dL (3.5-5.0); Alkaline Phosphatase 76 U/L (39-117); Anion Gap 14 (12-20); Aspartate Amino Transferase 38 U/L (5-31); Blood Urea Nitrogen 20 mg/dL (9-16); Calcium 9.6 mg/dL (8.4-10.2); Carbon Dioxide 27 mmol/L (22-29); Chloride 104 mmol/L (96-108); Cholesterol 208 mg/dL (<200); Estimated Glomerular Filt Rate > 60; HDL Cholesterol 71 mg/dL (>40); Iron 78 mcg/dL (30-160); Percent Iron Saturation 22 % (15-50); Potassium 4.8 mmol/L (3.3-5.1); Sodium 140 mmol/L (135-145); Total Iron Binding Capacity 355 mcg/dL (228-428); Total Protein 7.8 g/dL (6.5-8.0); Triglycerides 54 mg/dL (<150); Unsaturated Iron Binding 277 ug/dL
[2025-07-19 08:38] LABS: Folate 9.5 ng/mL (> or = 4.0); Vitamin B12 635 pg/mL (200-900)
== END 2025-07-19 06:16 | disposition home or self-care (01) ==
LOC: HO.LAB 06:15
PROVIDERS: PCP Internal Medicine; Visit Provider Internal Medicine
DX: M70.61 Trochanteric bursitis, right hip (principal); D64.9 Anemia, unspecified; E55.9 Vitamin D deficiency, unspecified; E78.5 Hyperlipidemia, unspecified; E53.8 Deficiency of other specified B group vitamins
CPT/HCPCS: 36415; 80053; 80061; 82306; 82607; 82746; 83540; 85025

== ENCOUNTER 2025-07-23 14:22 | Outpatient (AMB) | payer OTHER, SELFPAY ==
[2025-07-23 14:25] VITALS: BP 120/80; PULSE 80; RESP 18; TEMP 36.3; O2SAT 97; BMI 32.1
--- NOTE | 2025-07-23 14:25 | A.OFFPC_ITS ---
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 Required: No Accompanied by: Self / Same As Patient Allergies shrimp (SHRIMP) Allergy (Severe, Verified 07/23/25 14:48) Anaphylaxis latex (LATEX) Allergy (Intermediate, Verified 07/23/25 14:48) RASH Penicillins Allergy (Intermediate, Verified 07/23/25 14:48) Itching Sulfa (Sulfonamide Antibiotics) (SULFA (SULFONAMIDE ANTIBIOTICS)) Allergy (Intermediate, Verified 07/23/25 14:48) HIVES levofloxacin (From LEVAQUIN) Adverse Reaction (Severe, Verified 07/23/25 14:48) AGITATION morphine (MORPHINE) Adverse Reaction (Severe, Verified 07/23/25 14:48) HEADACHES adhesives Allergy (Intermediate, Uncoded 07/23/25 14:48) rash Medication List - Last Reconciled 07/23/25 by Ailyn Quintana MD albuterol sulfate 90 mcg/actuation 1 inh inhalation QID PRN azelastine 0.05% 1 drp ophthalmic (eye) BID PRN bupropion HCl XL 300 mg PO QAM 90 days clindamycin phosphate 2% 1 appful vaginal BEDTIME 7 days CPAP (CPAP Machine/Device) As directed fexofenadine (Keeley Allergy) 180 mg PO DAILY levonorgestrel (Mirena) 20 mcg intrauterine DIRECTED omeprazole 20 mg PO DAILY oxymetazoline 0.05% (Afrin (oxymetazoline)) 2 sprays intranasal Q12H PRN rivaroxaban (Xarelto) 10 mg PO DAILY PRN Tobacco use date assessed: 07/23/25 Dental Screening Dental Screen Date: 07/23/25 Did you have a dental visit in the last 12 months?: Yes Did you have a dental problem in the last 6 months where you did not have access to dental care?: No Was dental information given to patient?: Patient has dentist HPI HPI Comments History of Present Illness Details The patient is a 50-year-old female presenting with a physical exam. Mammogram this year. Last Tdap was 2010 and will receive a Tdap today. She has a history of colon cancer diagnosed a few years ago. Her last Pap smear showed HPV positivity, but a subsequent biopsy was negative. The patient has mild transaminitis, and her liver enzymes will be repeated in six months. She reports left knee pain that began a few weeks ago without any preceding trauma and is considering an x-ray for further evaluation[facility] Medical History Personal history of colon cancer Family history of breast cancer Physical exam Sinus infection Ovarian cyst GERD (gastroesophageal reflux disease) IUD (intrauterine device) in place History of blood transfusion Medullary sponge kidney Asthma History of seizure Seasonal allergies RADHA (obstructive sleep apnea) History of chemotherapy (~2012) Hx of radiation therapy (~2012) Recent bereavement Left arm pain Neck pain Retrognathia Vaginal discharge Rash Subconjunctival hemorrhage of left eye Upper respiratory tract infection Hemorrhoids with complication Myalgia Right wrist pain Right shoulder pain Screen for STD (sexually transmitted disease) Retained tampon COVID-19 Conjunctivitis Well woman exam Breast pain Shortness of breath PVC (premature ventricular contraction) PAC (premature atrial contraction) Colon cancer (~2012) DVT (deep venous thrombosis) Heart palpitations Shortness of breath Surgical History History of kidney surgery Hx of colonoscopy History of esophagogastroduodenoscopy (EGD) H/O knee surgery History of colon surgery Family History Mother High blood pressure COPD (chronic obstructive pulmonary disease) History of four vessel coronary artery bypass graft Mental health disorder Father High blood pressure Cancer Maternal Grandfather Colon cancer Paternal Aunt Colon cancer Social History Housing: House Are you a primary customer care associate to a significant other at home: No Do you presently have visiting nurse or other home services: No Alcohol intake: current Alcohol intake frequency: a few times a month Alcohol type: wine Patient Tobacco Use Status: Former Tobacco user Tobacco use type: Smokeless Tobacco e-Cigarette/Vaping Use: Currently Using Second Hand Smoke Exposure: Yes service: No Current occupational status: employed 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 Current occupational exposures/hazards: No Cognitive needs: No Hearing needs: No Vision needs: No Female Reproductive History Menstrual Age of Menarche: 10 Questionnaire Thrive Questionnaire Date Thrive assessed: 03/13/25 I am a: Patient What is your living situation today?: I have a steady place to live Within the past 12 months, did the food you bought not last and you didn't have the money to get more?: Never true Within the past 12 months, did you worry whether your food would run out before you got money to buy more?: Never true Do you have trouble paying for medicines?: No Do you have trouble getting transportation to medical appointments?: No Do you have trouble paying your heating and electricity bill?: No Do you have trouble taking care of your child, family member or friend?: No Do you have trouble with day-to-day activities such as bathing, preparing meals, shopping, managing finances, etc.?: No Are you currently unemployed and looking for a job?: No Are you interested in more education?: No Please select the resources that you would like help with: None Currently or been in a relationship where the following occur: No concerns reported THRIVE Score: 0 CHAVA-7 AMB Questionnaire CHAAV-7 Date CHAVA - 7 assessed: 03/13/25 Source: Developed by Drs. Phuc Carter, Carlita Mercado, Joseph Christianson and colleagues, with an educational oumar from [employer]. Review of Systems Const All systems reviewed & are unremarkable except as noted in HPI and below Card Denies chest pain at rest, Denies chest pain with activity, Denies edema, Denies irregular heart rhythm, Denies claudication, Denies dyspnea, Denies dyspnea on exertion, Denies orthopnea, Denies paroxysmal nocturnal dyspnea and Denies slow heart rate Resp Denies cough, Denies dyspnea and Denies dyspnea on exertion GI Denies abdominal pain, Denies change in bowel habits, Denies excessive flatus, Denies nausea and Denies vomiting Denies urinary incontinence, Denies urinary hesitancy and Denies urinary urgency Physical exam (Primary Care) Vital Signs: Last Vital Signs Temp 97.3 F 07/23/25 14: Pulse 80 07/23/25 14:25 Resp 18 07/23/25 14:25 BP 120/80 07/23/25 14:25 Pulse Ox 97 07/23/25 14:25 Oxygen Delivery Method Room Air 07/23/25 14:25 BMI result Body Mass Index 32.1 BMI Assessment/Plan discussion: High BMI High, discussed plan: lifestyle, weight reduction, dietary and physical activity Tobacco/Smoking Status: Tobacco use Status Tobacco use date assessed 07/23/25 07/23/25 14:42 Patient Tobacco Use Status Former Tobacco user 07/23/25 14:26 Tobacco use type Smokeless Tobacco 07/23/25 14:26 e-Cigarette/Vaping Use Currently Using 07/23/25 14:26 Thrive Assessment: Date of Thrive Assessment Date Thrive assessed 03/13/25 07/23/25 14:26 Currently or been in a relationship where the following occur: No concerns reported HENNC Head: Yes normal to inspection, Yes normocephalic and Yes atraumatic Ears: external ears normal Eyes General: appearance normal, both eyes and all related structures Eyelids: Yes eyelids normal Conjunctivae: conjunctivae normal Neck Neck: Yes normal visual inspection and Yes supple Resp Effort & Inspection: normal respiratory effort Auscultation: clear to auscultation bilaterally Cardio Jugular venous distension: no JVD Rate: regular rate Rhythm: regular rhythm Heart sounds: S1 normal heart sound present and S2 normal heart sound present GI Inspection: Yes normal to inspection Palpation (GI): Soft to palpation and nontender Auscultation: normal bowel sounds Skin General skin exam: no rashes or lesions noted Neuro General: no focal motor deficits Extrem General: Yes full ROM Psych Appearance: grossly normal Immunizations Boostrix Tdap 2.5 Lf unit-8 mcg-5 Lf/0.5 mL intramuscular syringe Performing Provider: Ailyn Quintana MD Performing Location[facility] Administered by: Marissa Munoz CMA on 07/23/25 15:07 Dose Route Admin Location Dispensed Lot Number Expiration Date [facility] Slotter Operator Helper 0.5 mL IM Left Deltoid 0.5 mL [id number] 09/26/27 [id number] [employer] Total Dispensed Waste 0.5 mL 0 % VIS Given Date VIS Provided VIS Publication Date 07/23/25 Single Vaccine 21 Eligibility Eligibility Date Funding Source Not [facility] Eligible 07/23/25 Private Coding Level of Care Code Est Pt Level 3 (41033) Est Pt Prev Care 40-64y(04623) Diagnoses Physical exam Z00.00 Left knee pain M25.562 Time Spent (min) 30 Assessment & Plan Assessment & Plan (1) Physical exam: Code(s): Z00.00 - Encounter for general adult medical examination without abnormal findings Category: Medical (2) Left knee pain: Code(s): M25.562 - Pain in left knee Category: Medical Plan Plan 1. Repeat physical exam in a year. 2. Pain in left knee M25.562 The patient reports left knee pain that began a few weeks ago without any preceding trauma and is considering an x-ray for further evaluation. Orders: Orders XR knee LT 2V Today M25.562 - Pain in left knee Comprehensive [place]wright. Panel Fast 6 Months R73.02 - Impaired glucose tolerance (oral) TDaP Immunization Today Z23 - Encounter for immunization
--- OUTSIDE RECORDS SUMMARY | 2025-07-23 18:08 | XMS_ITS | Encounter Summary ---
Author Organization [facility] Address [address] [facility] [address] [place] [address] Phone Care Team Providers Care Case Packer And Sealer Name Role Phone Paul Watt DO Primary Care Provider [phone] Paul Watt DO Unavailable Karlie Wright MD, MPH Primary Care Provid er Karlie Wright MD, MPH Primary Care Provid er Paul Watt DO Unavailable Karlie Wright MD, MPH Unavailable [phone]- [phone] Pcp, Unknown Primary Care Provider Unavailabl e Ailyn Fishman MD Primary Care Provid er Encounter Details Date Type Department Care Team (Late st Contact Info) Description 04/17/2018 Procedure Pass [facility] Endoscopy Admitting Dept Virtual Department [address] [place] [address] Social History Tobacco Use Types Packs/Day Years [...] on filedocumented in this encounter Care Teams Case Packer And Sealer Relationship Specialty Start Date End Date Paul Watt DO [address] [place] [address] [email or web address] PCP - General Family Medicine 11/10/17 08/11/18 Karlie Wright MD, MPH [address] [place] [address] [email or web address] PCP - General Family Medicine 08/12/18 09/10/18 Karlie Wright MD, MPH [address] [place] [address] [email or web address] PCP - General Family Medicine 09/11/18 06/21/21 Pcp, Unknown PCP - General 06/22/21 12/10/23 Ailyn Fishman MD [address] [place] [address] PCP - General Internal Medicine 12/11/23 Paul Watt DO [address] [place] [phone] [email or web address] Insurance Assigned Provider 02/04/18 08/12/18 Paul Watt DO [address] [place] [id number] Insurance Assigned Provider 04/08/19 06/12/20 Karlie Wright MD, MPH [address] [address] [email or web address] Insurance Assigned Provider 05/16/21 09/12/21 documented as of this encounter Additional Source Comments The information contained in this document represents components of the legal health record. It is not the complete legal health record.[facility]
--- OUTSIDE RECORDS SUMMARY | 2025-07-23 18:08 | XMS_ITS | Clinical Summary ---
Author Organization [facility] Address [address] [address] Phone Care Team Providers Care Auto Damage Trainee Name Role Phone Ailyn Fishman MD Primary [...] 43 Admit Type: Outpatient Gender: Female Room: [place] [address] Referring MD: PAUL WATT MD Exam Type: [...] 12:14 PM Procedure Code(s): --- Professional --- 26468, Colonoscopy, flexible; with biopsy, single or multiple --- Technical --- 39310, Colonoscopy, flexible; with biopsy, single or multiple Diagnosis Code(s): --- Professional --- Z85.038, Personal history of other malignant neoplasm of largeintestine Z98.0, Intestinal bypass and anastomosis status D12.5, Benign neoplasm of sigmoid colon --- Technical --- Z85.038, Personal history of other malignant neoplasm of largeintestine Z98.0, Intestinal bypass and anastomosis status D12.5, Benign neoplasm of sigmoid colon CPT copyright 2016 [employer]. All rights reserved. The codes documented in this report are preliminary and upon director records management reviewmay be revised to meet current compliance requirements. [address] [place] [address] [id number] Paul Watt DO GI PROCEDURE ORDERABLES Final Re sult from Last 3 Months or Most Recently Relevant to Health Maintenance Insurance [employer] ADMINISTRATORS [employer]MIN[employer] [address] [place] [address] [place] [address] [place] [address] [facility] [address] [place] [address] Member Subscriber Plan / Payer (Ef fective 2018-Present) Name:Katlyn Shaikh Relation to Subscriber:Self Name:Katlyn Shaikh Payer ID:[id number] (NAIC) Type:PPO Address: [address] [employer] ADMINISTRATORS [facility] fishfishme ADMINISTRATORS Member Subscriber Plan / Payer (Ef fective 2019-Present) Name:Katlyn Shaikh Relation to Subscriber:Self Name:Katlyn Shaikh Payer ID:[id number] (NAIC) Type:PPO Address: [place] [id number] Care Teams Auto Damage Trainee Relationship Specialty Start Date End Date Ailyn Fishman MD [address] [place] [address] PCP - General Internal Medicine 12/11/23 Additional Source Comments The information contained in this document represents components of the legal health record. It is not the complete legal health record.[facility]
--- OUTSIDE RECORDS SUMMARY | 2025-07-23 18:08 | XMS_ITS | Patient Health Record ---
Author Organization [facility] Address [address] [place] [address] Care Team Providers Care Shirt Turner Name Role Phone Holly SMITH, Ailyn Primary Care Provider Unavail able Migdalia Luis Unavailable [phone] Allergies Allergen (clinical drug ingredient) Drug/Non Drug [...] Coverage End Date Blue Benefits [address] [address] [place] [address] [id number] Katlyn Shaikh Self - patient is the insured Medical (General) History Medical History History ICD Code Anemia asthma Cancer Kidney disease Numbness Neuropathy Sciatica Chicken pox Joint implants/screws Transfusions Surgical History Surgery Date(Month/Year) knee surgery, left / complication: blood clot/DVT 2006 colon cancer 2013 portacath placement 2012 Ingrown Toe Nail 2000
--- OUTSIDE RECORDS SUMMARY | 2025-07-23 18:08 | XMS_ITS | Encounter Summary ---
Author Organization [facility] Address [address] [facility] [address] [place] [address] Phone Care Team Providers Care Footwear Sales Coordinator Name Role Phone Paul Watt DO Primary Care Provider [phone] Paul Watt DO Unavailable Karlie Wright MD, MPH Primary Care Provid er Karlie Wright MD, MPH Primary Care Provid er Paul Watt DO Unavailable Karlie Wright MD, MPH Unavailable [phone] Pcp, Unknown Primary Care Provider Unavailabl e Ailyn Fishman MD Primary Care Provid er Encounter Details Date Type Department Care Team (Late st Contact Info) Description 02/14/2018 Transcribe Orders [facility] [address] [place] [address] Paul Watt DO [address] [facility] [place] [address] Social History Tobacco Use Types Packs/Day Years [...] on filedocumented in this encounter Care Teams Footwear Sales Coordinator Relationship Specialty Start Date End Date Paul Watt DO [address] [place] [address] [email or web address] PCP - General Family Medicine 11/10/17 08/11/18 Karlie Wright MD, MPH [address] [place] [address] [email or web address] PCP - General Family Medicine 08/12/18 09/10/18 Karlie Wright MD, MPH [address] [place] [address] [email or web address] PCP - General Family Medicine 09/11/18 06/21/21 Pcp, Unknown PCP - General 06/22/21 12/10/23 Ailyn Fishman MD [address] [place] [address] PCP - General Internal Medicine 12/11/23 Paul Watt DO [address] [place] [address] [email or web address] Insurance Assigned Provider 02/04/18 08/12/18 Paul Watt DO [address] [place] [address] [email or web address] Insurance Assigned Provider 04/08/19 06/12/20 Karlie Wright MD, MPH [address] [place] [address] [email or web address] Insurance Assigned Provider 05/16/21 09/12/21 documented as of this encounter Additional Source Comments The information contained in this document represents components of the legal health record. It is not the complete legal health record.[facility]
--- OUTSIDE RECORDS SUMMARY | 2025-07-23 18:08 | XMS_ITS | Encounter Summary ---
Author Organization [facility] Address [address] [facility] [address] [place] [address] Phone Care Team Providers Care Authorization Specialist Name Role Phone Paul Watt DO Primary Care Provider [phone] Paul Watt DO Unavailable Karlie Wright MD, MPH Primary Care Provid er Karlie Wright MD, MPH Primary Care Provid er Paul Watt DO Unavailable Karlie Wright MD, MPH Unavailable [phone] Pcp, Unknown Primary Care Provider Unavailabl e Ailyn Fishman MD Primary Care Provid er Encounter Details Date Type Department Care Team (Late st Contact Info) Description 02/20/2018 Procedure Pass [facility], Ct Scan - [address] [address] Social History Tobacco Use Types Packs/Day Years [...] on filedocumented in this encounter Care Teams Authorization Specialist Relationship Specialty Start Date End Date Paul Watt DO [address] [place] [address] [email or web address] PCP - General Family Medicine 11/10/17 08/11/18 Karlie Wright MD, MPH [address] [place] [address] [email or web address] PCP - General Family Medicine 08/12/18 09/10/18 Karlie Wright MD, MPH [address] [place] [address] [email or web address] PCP - General Family Medicine 09/11/18 06/21/21 Pcp, Unknown PCP - General 06/22/21 12/10/23 Ailyn Fishman MD [address] [place] [address] PCP - General Internal Medicine 12/11/23 Paul Watt DO [address] [place] [address] [email or web address] Insurance Assigned Provider 02/04/18 08/12/18 Paul Watt DO [address] [place] [address] [email or web address] Insurance Assigned Provider 04/08/19 06/12/20 Karlie Wright MD, MPH [address] [address] [email or web address] Insurance Assigned Provider 05/16/21 09/12/21 documented as of this encounter Additional Source Comments The information contained in this document represents components of the legal health record. It is not the complete legal health record.[facility]
--- OUTSIDE RECORDS SUMMARY | 2025-07-23 18:08 | XMS_ITS | Encounter Summary ---
Author Organization [facility] Address [address] [facility] [address] [place] [address] Phone Care Team Providers Care Recruitment Consultant Name Role Phone Paul Watt DO Primary Care Provider [phone] Paul Watt DO Unavailable Karlie Wright MD, MPH Primary Care Provid er Karlie Wright MD, MPH Primary Care Provid er Paul Watt DO Unavailable Karlie Wright MD, MPH Unavailable [phone]- [phone] Pcp, Unknown Primary Care Provider Unavailabl e Ailyn Fishman MD Primary Care Provid er Encounter Details Date Type Department Care Team (Latest Contact Info) Description 01/20/2018 Ancillary Orders Virtual Department [address] [place] [address] Taras Rivers MD [address] [place] [address] [address] S[address]_[place] [address] [email or web address] 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) documented in this encounter Care Teams Recruitment Consultant Relationship Specialty Start Date End Date Paul Watt DO [address] [place] [address] [email or web address] PCP - General Family Medicine 11/10/17 08/11/18 Karlie Wright MD, MPH [address] [place] [address] [email or web address] PCP - General Family Medicine 08/12/18 09/10/18 Karlie Wright MD, MPH [address] [place] [address] [email or web address] PCP - General Family Medicine 09/11/18 06/21/21 Pcp, Unknown PCP - General 06/22/21 12/10/23 Ailyn Fishman MD [address] [place] [address] PCP - General Internal Medicine 12/11/23 Paul Watt DO [address] [place] [address] [email or web address] Insurance Assigned Provider 02/04/18 08/12/18 Paul Watt DO [address] [place] [address] Insurance Assigned Provider 04/08/19 06/12/20 Karlie Wright MD, MPH [address] [place] [address] [email or web address] Insurance Assigned Provider 05/16/21 09/12/21 documented as of this encounter Additional Source Comments The information contained in this document represents components of the legal health record. It is not the complete legal health record.[facility]
--- OUTSIDE RECORDS SUMMARY | 2025-07-23 18:08 | XMS_ITS | Encounter Summary ---
Author Organization [facility] Address [address] [address] Phone Care Team Providers Care General House Worker Name Role Phone Paul Watt DO Primary Care Provider Paul Watt DO Unavailable Karlie Wright MD, MPH Primary Care Provid er Karlie Wright MD, MPH Primary Care Provid er Paul Watt DO Unavailable Karlie Wright MD, MPH Unavailable [phone] Pcp, Unknown Primary Care Provider Unavailabl e Ailyn Fishman MD Primary Care Provid er Encounter Details Date Type Department Care Team (Late st Contact Info) Description 02/22/2018 Transcribe Orders [facility] [address] [place] [address] Debra Forte, JAZZ MUSICIAN [address] [facility] [place] [address] Abdominal pain, unspecified abdominal location (Primary Dx) [...] EDT) Specimen Source/ Description STOOL STOOL STOOL [facility] Special Requests None [facility] DIRECT EXAM No parasites found by Trichrome Stain [facility] DIRECT EXAM NO PARASITES FOUND BY DIRECT OR CONCENTRATION METHODS [facility] Report Status 03/02/2018 FINAL [facility] Stool (Stool) 02/21/2018 9:0 0 AM EDT 02/22/2018 11:42 AM EDT us Debra Forte CNP MICROBIOLOGY - GENERA L ORDERABLES Final Result Performing Organization Address [facility] [[email or web address]] Co de Phone Number [address] [address] * Ova and parasites, stool (02/17/2018 6:00 PM EDT) Specimen Source/ Description STOOL STOOL STOOL [facility] Special Requests None [facility] DIRECT EXAM No parasites found by Trichrome Stain [facility] DIRECT EXAM NO PARASITES FOUND BY DIRECT OR CONCENTRATION METHODS [facility] Report Status 03/02/2018 FINAL [facility] Stool (Stool) 02/17/2018 6:0 0 PM EDT 02/22/2018 11:41 AM EDT Debra Forte CNP MICROBIOLOGY - GENERA L ORDERABLES Final Result Performing Organization Address City/[facility] [[email or web address]] Co de Phone Number [address] [address] documented in this encounter Visit Diagnoses Diagnosis Abdominal pain, unspecified abdominal location- Primary documented in this encounter Care Teams General House Worker Relationship Specialty Start Date End Date Paul Watt DO [address] [place] [address] [email or web address] PCP - General Family Medicine 11/10/17 08/11/18 Karlie Wright MD, MPH [address] [address] [email or web address] PCP - General Family Medicine 08/12/18 09/10/18 Karlie Wright MD, MPH [address] [place] [address] [email or web address] PCP - General Family Medicine 09/11/18 06/21/21 Pcp, Unknown PCP - General 06/22/21 12/10/23 Ailyn Fishman MD [address] [place] [phone] PCP - General Internal Medicine 12/11/23 Paul Watt DO [address] [place] [address] [email or web address] Insurance Assigned Provider 02/04/18 08/12/18 Paul Watt DO [address] [place] [address] [email or web address] Insurance Assigned Provider 04/08/19 06/12/20 Karlie Wright MD, MPH [address] [place] [address] [email or web address] Insurance Assigned Provider 05/16/21 09/12/21 documented as of this encounter Additional Source Comments The information contained in this document represents components of the legal health record. It is not the complete legal health record.[facility]
--- OUTSIDE RECORDS SUMMARY | 2025-07-23 18:08 | XMS_ITS | Encounter Summary ---
Author Organization [facility] Address 399 [facility] [address] [place] [address] Phone Care Team Providers Care Service Station Attendant Name Role Phone Paul Watt DO Primary Care Provider [phone] Paul Watt DO Unavailable Karlie Wright MD, MPH Primary Care Provid er Karlie Wright MD, MPH Primary Care Provid er Paul Watt DO Unavailable Karlie Wright MD, MPH Unavailable [phone] Pcp, Unknown Primary Care Provider Unavailabl e Ailyn Fishman MD Primary Care Provid er Encounter Details Date Type Department Care Team (Late st Contact Info) Description 07/03/2018 Ancillary Orders Virtual Department [address] [place] [address] Willie Strong MD [address] [place] [address], [address] [address] [email or web address] Calculus of kidney Social [...] kidney documented in this encounter Care Teams Service Station Attendant Relationship Specialty Start Date End Date Paul Watt DO [address] [place] [address] [email or web address] PCP - General Family Medicine 11/10/17 08/11/18 Karlie Wright MD, MPH [address] [place] [address] [email or web address] PCP - General Family Medicine 08/12/18 09/10/18 Karlie Wright MD, MPH [address] [place] [address] [email or web address] PCP - General Family Medicine 09/11/18 06/21/21 Pcp, Unknown PCP - General 06/22/21 12/10/23 Ailyn Fishman MD [address] [place] [address] PCP - General Internal Medicine 12/11/23 Paul Watt DO 29 [place] [address] [email or web address] Insurance Assigned Provider 02/04/18 08/12/18 Paul Watt DO [address] [place] [address] [email or web address] Insurance Assigned Provider 04/08/19 06/12/20 Karlie Wright MD, MPH [address] [place], [place] [phone] [email or web address] Insurance Assigned Provider 05/16/21 09/12/21 documented as of this encounter Additional Source Comments The information contained in this document represents components of the legal health record. It is not the complete legal health record.[facility]
== END 2025-07-23 15:12 | disposition home or self-care (01) ==
LOC: HO.HMCH 14:22
PROVIDERS: PCP Physician Assistant; Visit Provider Internal Medicine
DX: Z00.00 Encounter for general adult medical examination without abnormal findings (principal); M25.562 Pain in left knee; Z23 Encounter for immunization

== ENCOUNTER → 2025-07-23 14:22 | Outpatient (BNVA) | payer OTHER, SELFPAY | PROVIDERS: PCP Physician Assistant; Visit Provider Internal Medicine | DX: Z00.00 Encounter for general adult medical examination without abnormal findings (principal); M25.562 Pain in left knee; Z23 Encounter for immunization | CPT/HCPCS: 90471; 90715 ==

== ENCOUNTER 2025-07-24 07:05 | Outpatient (REF) | payer OTHER, SELFPAY ==
--- NOTE | ~2025-07-24 | XR_ITS ---
EXAMINATION: XR KNEE, LEFT CLINICAL INFORMATION: M25.562 - Pain in left knee COMPARISON: Radiographs on August 30, 2024 TECHNIQUE: Two views of the left knee. FINDINGS: Evidence of previous ligamentous repair. Hardware in the anterior aspect of the proximal tibia appears intact. Normal alignment. Minimal tricompartmental osteophytes. Joint spaces are preserved. No suprapatellar joint effusion. No acute fracture. Overall, similar to previous study. No abnormal soft tissue calcification. XR/XR knee LT 2V IMPRESSION: Minimal degenerative changes. No abnormal soft tissue calcification. Electronically signed by: Olesya Ahumada MD 07/24/2025 07:19 AM EDT
--- OUTSIDE RECORDS SUMMARY | 2025-07-24 07:08 | XMS_ITS | Encounter Summary ---
Author Organization [facility] Address 399 [facility] [address] [place] [address] Phone Care Team Providers Care Pharmacy Billing Adjudicator Name Role Phone Paul Watt DO Primary Care Provider [phone] Paul Watt DO Unavailable Karlie Wright MD, MPH Primary Care Provid er Karlie Wright MD, MPH Primary Care Provid er Paul Watt DO Unavailable Karlie Wright MD, MPH Unavailable [phone] Pcp, Unknown Primary Care Provider Unavailabl e Ailyn Fishman MD Primary Care Provid er Encounter Details Date Type Department Care Team (Latest Contact Info) Description 01/20/2018 Ancillary Orders Virtual Department [address] [place] [address] Taras Rivers MD [address] [place] [address] [address]_[place] [address] [email or web address] 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) documented in this encounter Care Teams Pharmacy Billing Adjudicator Relationship Specialty Start Date End Date Paul Watt DO [address] [place] [address] [email or web address] PCP - General Family Medicine 11/10/17 08/11/18 Karlie Wright MD, MPH [address] [place] [address] [email or web address] PCP - General Family Medicine 08/12/18 09/10/18 Karlie Wright MD, MPH [address] [place] [address] [email or web address] PCP - General Family Medicine 09/11/18 06/21/21 Pcp, Unknown PCP - General 06/22/21 12/10/23 Ailyn Fishman MD [address] [place] [address] PCP - General Internal Medicine 12/11/23 Paul Watt DO [address] [place] [address] [email or web address] Insurance Assigned Provider 02/04/18 08/12/18 Paul Watt DO [address] [place] [address] Insurance Assigned Provider 04/08/19 06/12/20 Karlie Wright MD, MPH [address] [place] [address] [email or web address] Insurance Assigned Provider 05/16/21 09/12/21 documented as of this encounter Additional Source Comments The information contained in this document represents components of the legal health record. It is not the complete legal health record.[facility]
--- OUTSIDE RECORDS SUMMARY | 2025-07-24 07:08 | XMS_ITS | Encounter Summary ---
Author Organization [facility] Address 399 [facility] [address] [place] [address] Phone Care Team Providers Care Prop Making Supervisor Name Role Phone Paul Watt DO Primary Care Provider [phone] Paul Watt DO Unavailable Karlie Wright MD, MPH Primary Care Provid er Karlie Wright MD, MPH Primary Care Provid er Paul Watt DO Unavailable Karlie Wright MD, MPH Unavailable [phone] Pcp, Unknown Primary Care Provider Unavailabl e Ailyn Fishman MD Primary Care Provid er Encounter Details Date Type Department Care Team (Late st Contact Info) Description 02/20/2018 Procedure Pass [facility], Ct Scan - [address] [address] Social History Tobacco Use Types Packs/Day Years [...] on filedocumented in this encounter Care Teams Prop Making Supervisor Relationship Specialty Start Date End Date Paul Watt DO [address] [place] [address] [email or web address] PCP - General Family Medicine 11/10/17 08/11/18 Karlie Wright MD, MPH [address] [place] [address] [email or web address] PCP - General Family Medicine 08/12/18 09/10/18 Karlie Wright MD, MPH [address] [place] [address] [email or web address] PCP - General Family Medicine 09/11/18 06/21/21 Pcp, Unknown PCP - General 06/22/21 12/10/23 Ailyn Fishman MD [address] [place] [address] PCP - General Internal Medicine 12/11/23 Paul Watt DO [address] [place] [address] [email or web address] Insurance Assigned Provider 02/04/18 08/12/18 Paul Watt DO [address] [place] [address] [email or web address] Insurance Assigned Provider 04/08/19 06/12/20 Karlie Wright MD, MPH [address] [address] [email or web address] Insurance Assigned Provider 05/16/21 09/12/21 documented as of this encounter Additional Source Comments The information contained in this document represents components of the legal health record. It is not the complete legal health record.[facility]
--- OUTSIDE RECORDS SUMMARY | 2025-07-24 07:08 | XMS_ITS | Encounter Summary ---
Author Organization [facility] Address 399 [facility] [address] [place] [address] Phone Care Team Providers Care Puppet Master Name Role Phone Paul Watt DO Primary Care Provider [phone] Paul Watt DO Unavailable Karlie Wright MD, MPH Primary Care Provid er Karlie Wright MD, MPH Primary Care Provid er Paul Watt DO Unavailable Karlie Wright MD, MPH Unavailable [phone] Pcp, Unknown Primary Care Provider Unavailabl e Ailyn Fishman MD Primary Care Provid er Encounter Details Date Type Department Care Team (Late st Contact Info) Description 02/14/2018 Transcribe Orders [facility] [address] [place] [address] Paul Watt DO 29 [facility] [place] [address] Social History Tobacco Use Types Packs/Day Years [...] on filedocumented in this encounter Care Teams Puppet Master Relationship Specialty Start Date End Date Paul Watt DO [address] [place] [address] [email or web address] PCP - General Family Medicine 11/10/17 08/11/18 Karlie Wright MD, MPH [address] [place] [address] [email or web address] PCP - General Family Medicine 08/12/18 09/10/18 Karlie Wright MD, MPH [address] [place] [address] [email or web address] PCP - General Family Medicine 09/11/18 06/21/21 Pcp, Unknown PCP - General 06/22/21 12/10/23 Ailyn Fishman MD 5 [place] [address] PCP - General Internal Medicine 12/11/23 Paul Watt DO [address] [place] [address] [email or web address] Insurance Assigned Provider 02/04/18 08/12/18 Paul Watt DO [address] [place] [address] [email or web address] Insurance Assigned Provider 04/08/19 06/12/20 Karlie Wright MD, MPH [address] [place] [address] [email or web address] Insurance Assigned Provider 05/16/21 09/12/21 documented as of this encounter Additional Source Comments The information contained in this document represents components of the legal health record. It is not the complete legal health record.[facility]
--- OUTSIDE RECORDS SUMMARY | 2025-07-24 07:08 | XMS_ITS | Clinical Summary ---
Author Organization [facility] Address [address] [address] Phone Care Team Providers Care Shovel Loader Operator Name Role Phone Ailyn Fishman MD Primary [...] 43 Admit Type: Outpatient Gender: Female Room: [place] [address] Referring MD: PAUL WATT MD Exam Type: [...] 12:14 PM Procedure Code(s): --- Professional --- 90283, Colonoscopy, flexible; with biopsy, single or multiple --- Technical --- 01443, Colonoscopy, flexible; with biopsy, single or multiple Diagnosis Code(s): --- Professional --- Z85.038, Personal history of other malignant neoplasm of largeintestine Z98.0, Intestinal bypass and anastomosis status D12.5, Benign neoplasm of sigmoid colon --- Technical --- Z85.038, Personal history of other malignant neoplasm of largeintestine Z98.0, Intestinal bypass and anastomosis status D12.5, Benign neoplasm of sigmoid colon CPT copyright 2016 [employer]. All rights reserved. The codes documented in this report are preliminary and upon green building materials distributor reviewmay be revised to meet current compliance requirements. [address] [place] [address] [id number] Paul Watt DO GI PROCEDURE ORDERABLES Final Re sult from Last 3 Months or Most Recently Relevant to Health Maintenance Insurance [employer] [address] [place] [address] [place] [address] [address] [place] [address] [facility] [place] [address] [place] [address] Member Subscriber Plan / Payer (Ef fective 2018-Present) Name:Katlyn Shaikh Relation to Subscriber:Self Name:Katlyn Shaikh Payer ID:[id number] (NAIC) Type:PPO Address: [address] [place] ADMIN[employer]ATORS [facility] [employer] Member Subscriber Plan / Payer (Ef fective 2019-Present) Name:Katlny Shaikh Relation to Subscriber:Self Name:Katlyn Shaikh Payer ID:[id number] (NAIC) Type:PPO Address: [place] [phone] Care Teams Shovel Loader Operator Relationship Specialty Start Date End Date Ailyn Fishman MD [address] [place] [address] PCP - General Internal Medicine 12/11/23 Additional Source Comments The information contained in this document represents components of the legal health record. It is not the complete legal health record.[facility]
--- OUTSIDE RECORDS SUMMARY | 2025-07-24 07:08 | XMS_ITS | Encounter Summary ---
Author Organization [facility] Address [address] [address] Phone Care Team Providers Care Fruit Farmer Name Role Phone Paul Watt DO Primary Care Provider [phone] Paul Watt DO Unavailable Karlie Wright MD, MPH Primary Care Provid er Karlie Wright MD, MPH Primary Care Provid er Paul Watt DO Unavailable Karlie Wright MD, MPH Unavailable [phone]- [phone] Pcp, Unknown Primary Care Provider Unavailabl e Ailyn Fishman MD Primary Care Provid er Encounter Details Date Type Department Care Team (Late st Contact Info) Description 02/22/2018 Transcribe Orders [facility] [address] [place] [address] Debra Forte, ELEMENTARY TEACHER 29 [facility] [place] [address] Abdominal pain, unspecified abdominal location (Primary Dx) [...] EDT) Specimen Source/ Description STOOL STOOL STOOL [facility] Special Requests None [facility] DIRECT EXAM No parasites found by Trichrome Stain [facility] DIRECT EXAM NO PARASITES FOUND BY DIRECT OR CONCENTRATION METHODS [facility] Report Status 03/02/2018 FINAL [facility] Stool (Stool) 02/21/2018 9:0 0 AM EDT 02/22/2018 11:42 AM EDT us Debra Forte CNP MICROBIOLOGY - GENERA L ORDERABLES Final Result Performing Organization Address [facility] Co de Phone Number [address] [address] * Ova and parasites, stool (02/17/2018 6:00 PM EDT) Specimen Source/ Description STOOL STOOL STOOL [facility] Special Requests None [facility] DIRECT EXAM No parasites found by Trichrome Stain [facility] DIRECT EXAM NO PARASITES FOUND BY DIRECT OR CONCENTRATION METHODS [facility] Report Status 03/02/2018 FINAL [facility] Stool (Stool) 02/17/2018 6:0 0 PM EDT 02/22/2018 11:41 AM EDT Debra Forte CNP MICROBIOLOGY - GENERA L ORDERABLES Final Result Performing Organization Address City/[facility] Co de Phone Number [address] [address] documented in this encounter Visit Diagnoses Diagnosis Abdominal pain, unspecified abdominal location- Primary documented in this encounter Care Teams Fruit Farmer Relationship Specialty Start Date End Date Paul Watt DO [address] [place] [address] [email or web address] PCP - General Family Medicine 11/10/17 08/11/18 Karlie Wright MD, MPH [address] [address] [email or web address] PCP - General Family Medicine 08/12/18 09/10/18 Karlie Wright MD, MPH [address] [place] [address] [email or web address] PCP - General Family Medicine 09/11/18 06/21/21 Pcp, Unknown PCP - General 06/22/21 12/10/23 Ailyn Fishman MD [address] [place] [address] PCP - General Internal Medicine 12/11/23 Paul Watt DO [address] [place] [address] [email or web address] Insurance Assigned Provider 02/04/18 08/12/18 Paul Watt DO [address] [place] [address] [email or web address] Insurance Assigned Provider 04/08/19 06/12/20 Karlie Wright MD, MPH [address] [place] [address] [email or web address] Insurance Assigned Provider 05/16/21 09/12/21 documented as of this encounter Additional Source Comments The information contained in this document represents components of the legal health record. It is not the complete legal health record.[facility]
--- OUTSIDE RECORDS SUMMARY | 2025-07-24 07:08 | XMS_ITS | Encounter Summary ---
Author Organization [facility] Address 399 [facility] [address] [place] [address] Phone Care Team Providers Care Hard Tile Setter Apprentice Name Role Phone Paul Watt DO Primary Care Provider [phone] Paul Watt DO Unavailable Karlie Wright MD, MPH Primary Care Provid er Karlie Wright MD, MPH Primary Care Provid er Paul Watt DO Unavailable Karlie Wright MD, MPH Unavailable [phone]- [phone] Pcp, Unknown Primary Care Provider Unavailabl e Ailyn Fishman MD Primary Care Provid er Encounter Details Date Type Department Care Team (Late st Contact Info) Description 07/03/2018 Ancillary Orders Virtual Department [address] [place] [address] Willie Strong MD [address] [place] [address], [address] [address] [email or web address] Calculus of kidney Social History Tobacco Use [...] kidney documented in this encounter Care Teams Hard Tile Setter Apprentice Relationship Specialty Start Date End Date Paul Watt DO [address] [place] [address] [email or web address] PCP - General Family Medicine 11/10/17 08/11/18 Karlie Wright MD, MPH [address] [place] [address] [email or web address] PCP - General Family Medicine 08/12/18 09/10/18 Karlie Wright MD, MPH [address] [place] [address] [email or web address] PCP - General Family Medicine 09/11/18 06/21/21 Pcp, Unknown PCP - General 06/22/21 12/10/23 Ailyn Fishman MD [address] [place] [address] PCP - General Internal Medicine 12/11/23 Paul Watt DO [address] [place] [address] [email or web address] Insurance Assigned Provider 02/04/18 08/12/18 Paul Watt DO [address] [place] [address] [email or web address] Insurance Assigned Provider 04/08/19 06/12/20 Karlie Wright MD, MPH [address] [place], [place] [phone] [email or web address] Insurance Assigned Provider 05/16/21 09/12/21 documented as of this encounter Additional Source Comments The information contained in this document represents components of the legal health record. It is not the complete legal health record.[facility]
--- OUTSIDE RECORDS SUMMARY | 2025-07-24 07:08 | XMS_ITS | Encounter Summary ---
Author Organization [facility] Address 399 [facility] [address] [place] [address] Phone Care Team Providers Care Flatwork Assembler Name Role Phone Paul Watt DO Primary Care Provider [phone] Paul Watt DO Unavailable Karlie Wright MD, MPH Primary Care Provid er Karlie Wright MD, MPH Primary Care Provid er Paul Watt DO Unavailable Karlie Wright MD, MPH Unavailable [phone]- [phone] Pcp, Unknown Primary Care Provider Unavailabl e Ailyn Fishman MD Primary Care Provid er Encounter Details Date Type Department Care Team (Late st Contact Info) Description 02/20/2018 Procedure Pass [facility], Ct Scan - [address] [address] Social History Tobacco Use Types Packs/Day Years [...] on filedocumented in this encounter Care Teams Flatwork Assembler Relationship Specialty Start Date End Date Paul Watt DO [address] [place] [address] [email or web address] PCP - General Family Medicine 11/10/17 08/11/18 Karlie Wright MD, MPH [address] [place] [address] [email or web address] PCP - General Family Medicine 08/12/18 09/10/18 Karlie Wright MD, MPH [address] [place] [address] [email or web address] PCP - General Family Medicine 09/11/18 06/21/21 Pcp, Unknown PCP - General 06/22/21 12/10/23 Ailyn Fishman MD [address] [place] [address] PCP - General Internal Medicine 12/11/23 Paul Watt DO [address] [place] [address] [email or web address] Insurance Assigned Provider 02/04/18 08/12/18 Paul Watt DO [address] [place] [phone] [email or web address] Insurance Assigned Provider 04/08/19 06/12/20 Karlie Wright MD, MPH [address] [address] [email or web address] Insurance Assigned Provider 05/16/21 09/12/21 documented as of this encounter Additional Source Comments The information contained in this document represents components of the legal health record. It is not the complete legal health record.[facility]
--- OUTSIDE RECORDS SUMMARY | 2025-07-24 07:08 | XMS_ITS | Encounter Summary ---
Author Organization [facility] Address 399 [facility] [address] [place] [address] Phone Care Team Providers Care Auto Inspection Specialist Name Role Phone Paul Watt DO Primary Care Provider [phone] Paul Watt DO Unavailable Karlie Wright MD, MPH Primary Care Provid er Karlie Wright MD, MPH Primary Care Provid er Paul Watt DO Unavailable Karlie Wright MD, MPH Unavailable [phone]- [phone] Pcp, Unknown Primary Care Provider Unavailabl e Ailyn Fishman MD Primary Care Provid er Encounter Details Date Type Department Care Team (Late st Contact Info) Description 04/17/2018 Procedure Pass [facility]oscopy Admitting Dept Virtual Department [address] [place] [address] Social History Tobacco Use Types Packs/Day Years [...] on filedocumented in this encounter Care Teams Auto Inspection Specialist Relationship Specialty Start Date End Date Paul Watt DO [address] [place] [address] [email or web address] PCP - General Family Medicine 11/10/17 08/11/18 Karlie Wright MD, MPH [address] [place] [address] [email or web address] PCP - General Family Medicine 08/12/18 09/10/18 Karlie Wright MD, MPH [address] [place] [address] [email or web address] PCP - General Family Medicine 09/11/18 06/21/21 Pcp, Unknown PCP - General 06/22/21 12/10/23 Ailyn Fishman MD [address] [place] [address] PCP - General Internal Medicine 12/11/23 Paul Watt DO [address] [place] [address] [email or web address] Insurance Assigned Provider 02/04/18 08/12/18 Paul Watt DO [address] [place] [address] Insurance Assigned Provider 04/08/19 06/12/20 Karlie Wright MD, MPH [address] [address] [email or web address] Insurance Assigned Provider 05/16/21 09/12/21 documented as of this encounter Additional Source Comments The information contained in this document represents components of the legal health record. It is not the complete legal health record.[facility]
--- OUTSIDE RECORDS SUMMARY | 2025-07-24 07:08 | XMS_ITS | Patient Health Record ---
Author Organization [facility] Address [address] [place] [address] Care Team Providers Care Welder First Class Name Role Phone Holly SMITH, Ailyn Primary Care Provider Unavail able Migdalia Luis Unavailable [phone] Allergies Allergen (clinical drug ingredient) Drug/Non Drug [...] Coverage End Date Blue Benefits [address] [address] [place] [address] [id number] Katlyn Shaikh Self - patient is the insured Medical (General) History Medical History History ICD Code Anemia asthma Cancer Kidney disease Numbness Neuropathy Sciatica Chicken pox Joint implants/screws Transfusions Surgical History Surgery Date(Month/Year) knee surgery, left / complication: blood clot/DVT 2006 colon cancer 2013 portacath placement 2012 Ingrown Toe Nail 2000
== END 2025-07-24 07:06 | disposition home or self-care (01) ==
LOC: HO.XRAY 07:05
PROVIDERS: PCP Internal Medicine; Visit Provider Internal Medicine
DX: M25.562 Pain in left knee (principal)
CPT/HCPCS: 73560

== ENCOUNTER → 2025-07-24 07:07 | Outpatient (BNV) | payer OTHER, SELFPAY | PROVIDERS: PCP Internal Medicine; Visit Provider Radiology Body Imaging | DX: M25.562 Pain in left knee (principal) | CPT/HCPCS: 73560 ==

== ENCOUNTER 2025-08-07 11:09 | Outpatient (REF) | payer OTHER, SELFPAY ==
[2025-08-08 06:04] LABS: Bacterial Vaginosis PCR NEGATIVE (Negative); Candida Group PCR DETECTED (Not Detect); Candida glab krusei PCR NOT DETECTED (Not Detect); Trichomonas vaginalis PCR NOT DETECTED (Not Detect)
[2025-08-08 06:34] LABS: CT PCR NOT DETECTED (Not Detect.); NG PCR NOT DETECTED (Not Detect.)
== END 2025-08-07 11:10 | disposition home or self-care (01) ==
LOC: HO.LNP 11:09
PROVIDERS: PCP Internal Medicine; Visit Provider Obstetrics & Gynecology
DX: N76.0 Acute vaginitis (principal); Z20.2 Contact with and (suspected) exposure to infections with a predominantly sexual mode of transmission
CPT/HCPCS: 81515; 87491; 87591

== ENCOUNTER 2025-08-07 11:09 | Outpatient (AMB) | payer OTHER, SELFPAY ==
--- NOTE | 2025-08-07 11:13 | A.OFFVIS_ITS ---
Vital Signs 08/07/25 11:19 Height 5 ft 9 in Weight 217 lb BMI 32.0 Intake Visit Reasons: vaginal discharge Machinist Supervisor Required: No Information Interpreted: non-clinical & clinical Community Education Specialist: Community Education Specialist Present (Andreia Elian MCFADDEN) Accompanied by: Self / Same As Patient Allergies shrimp (SHRIMP) Allergy (Severe, Verified 08/07/25 11:19) Anaphylaxis latex (LATEX) Allergy (Intermediate, Verified 08/07/25 11:19) RASH Penicillins Allergy (Intermediate, Verified 08/07/25 11:19) Itching Sulfa (Sulfonamide Antibiotics) (SULFA (SULFONAMIDE ANTIBIOTICS)) Allergy (Intermediate, Verified 08/07/25 11:19) HIVES levofloxacin (From LEVAQUIN) Adverse Reaction (Severe, Verified 08/07/25 11:19) AGITATION morphine (MORPHINE) Adverse Reaction (Severe, Verified 08/07/25 11:19) HEADACHES adhesives Allergy (Intermediate, Uncoded 08/07/25 11:19) rash Is last menstrual period known: No (mirena) HPI Comments Details: Presenting complaining of vulvovaginal burning and irritation with yellowish- greenish discharge not associated with foul odor. The patient took [id number] Monistat for 2 days today's her last dose PFSH Medical History Personal history of colon cancer Family history of breast cancer Physical exam Sinus infection Ovarian cyst GERD (gastroesophageal reflux disease) IUD (intrauterine device) in place History of blood transfusion Medullary sponge kidney Asthma History of seizure Seasonal allergies RADHA (obstructive sleep apnea) History of chemotherapy (~2012) Hx of radiation therapy (~2012) Recent bereavement Left arm pain Neck pain Retrognathia Vaginal discharge Rash Subconjunctival hemorrhage of left eye Upper respiratory tract infection Hemorrhoids with complication Myalgia Right wrist pain Right shoulder pain Screen for STD (sexually transmitted disease) Retained tampon COVID-19 Conjunctivitis Well woman exam Breast pain Shortness of breath PVC (premature ventricular contraction) PAC (premature atrial contraction) Colon cancer (~2012) DVT (deep venous thrombosis) Heart palpitations Shortness of breath Surgical History History of kidney surgery Hx of colonoscopy History of esophagogastroduodenoscopy (EGD) H/O knee surgery History of colon surgery Family History Mother High blood pressure COPD (chronic obstructive pulmonary disease) History of four vessel coronary artery bypass graft Mental health disorder Father High blood pressure Cancer Maternal Grandfather Colon cancer Paternal Aunt Colon cancer Social History Housing: House Are you a primary team primary care physician to a significant other at home: No Do you presently have visiting nurse or other home services: No Alcohol intake: current Alcohol intake frequency: a few times a month Alcohol type: wine Patient Tobacco Use Status: Former Tobacco user Tobacco use type: Smokeless Tobacco e-Cigarette/Vaping Use: Currently Using Second Hand Smoke Exposure: Yes service: No Current occupational status: employed 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 Current occupational exposures/hazards: No Cognitive needs: No Hearing needs: No Vision needs: No Female Reproductive History Menstrual Age of Menarche: 10 Review of Systems Const All systems reviewed & are unremarkable except as noted in HPI and below Physical Exam Vital Signs: BMI result Body Mass Index 32.0 General: Yes no CVA tenderness External Female Exam: normal external appearance and normal appearance of the urethra Speculum Exam - Vagina: normal appearance of the vagina, normal palpation, no lesions and no masses Speculum Exam - Cervix: normal appearance of the cervix, normal palpation, no lesions, no masses and nontender Bimanual exam- vagina & uterus: normal bimanual exam, normal palpation, uterine size normal, normal palpation, uterine shape normal, No Cervical tenderness present and non-tender Bimanual Exam- Adnexa, other: normal adnexae Back/Spine/Pelvis Back: no CVA tenderness Assessment & Plan Assessment & Plan (1) Vulvovaginitis: Code(s): N76.0 - Acute vaginitis Category: Medical Plan: GC/CT with BV panel collected. Instructions given the patient to complete her 3rd dose Monistat. Will check the results and treat accordingly. Coding Level of Care Code Est Pt Level 3 (03573) Diagnoses Vulvovaginitis N76.0
[2025-08-07 11:19] VITALS: BMI 32.0
--- OUTSIDE RECORDS SUMMARY | 2025-08-07 12:45 | XMS_ITS | Encounter Summary ---
Author Organization [facility] Address 399 [facility] [address] [place] [address] Phone Care Team Providers Care Switch Box Installer Name Role Phone Paul Watt DO Primary Care Provider [phone] Paul Watt DO Unavailable Karlie Wright MD, MPH Primary Care Provid er Karlie Wright MD, MPH Primary Care Provid er Paul Watt DO Unavailable Karlie Wright MD, MPH Unavailable [phone] Pcp, Unknown Primary Care Provider Unavailabl e Ailyn Fishman MD Primary Care Provid er Encounter Details Date Type Department Care Team (Latest Contact Info) Description 01/20/2018 Ancillary Orders Virtual Department [address] [place] [address] Taras Rivers MD [address] [place] [address] [address] [address] [email or web address] 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) documented in this encounter Care Teams Switch Box Installer Relationship Specialty Start Date End Date Paul Watt DO [address] [place] [address] [email or web address] PCP - General Family Medicine 11/10/17 08/11/18 Karlie Wright MD, MPH [address] [place] [address] [email or web address] PCP - General Family Medicine 08/12/18 09/10/18 Karlie Wright MD, MPH [address] [place] [address] [email or web address] PCP - General Family Medicine 09/11/18 06/21/21 Pcp, Unknown PCP - General 06/22/21 12/10/23 Ailyn Fishman MD [address] [place] [address] PCP - General Internal Medicine 12/11/23 Paul Watt DO [address] [place] [address] [email or web address] Insurance Assigned Provider 02/04/18 08/12/18 Paul Watt DO [address] [place] [address] Insurance Assigned Provider 04/08/19 06/12/20 Karlie Wright MD, MPH [address] [place] [address] [email or web address] Insurance Assigned Provider 05/16/21 09/12/21 documented as of this encounter Additional Source Comments The information contained in this document represents components of the legal health record. It is not the complete legal health record.[facility]
--- OUTSIDE RECORDS SUMMARY | 2025-08-07 12:45 | XMS_ITS | Encounter Summary ---
Author Organization [facility] Address 399 [facility] [address] [place] [address] Phone Care Team Providers Care Tax Accounting Assistant Name Role Phone Paul Watt DO Primary Care Provider [phone] Paul Watt DO Unavailable Karlie Wright MD, MPH Primary Care Provid er Karlie Wright MD, MPH Primary Care Provid er Paul Watt DO Unavailable Karlie Wright MD, MPH Unavailable [phone]- [phone] Pcp, Unknown Primary Care Provider Unavailabl e Ailyn Fishman MD Primary Care Provid er Encounter Details Date Type Department Care Team (Late st Contact Info) Description 04/17/2018 Procedure Pass [facility] Endoscopy Admitting Dept Virtual Department [address] [place] [address] Social History Tobacco Use Types Packs/Day Years [...] on filedocumented in this encounter Care Teams Tax Accounting Assistant Relationship Specialty Start Date End Date Paul Watt DO [address] [place] [address] [email or web address] PCP - General Family Medicine 11/10/17 08/11/18 Karlie Wright MD, MPH [address] [place] [address] [email or web address] PCP - General Family Medicine 08/12/18 09/10/18 Karlie Wright MD, MPH [address] [place] [address] [email or web address] PCP - General Family Medicine 09/11/18 06/21/21 Pcp, Unknown PCP - General 06/22/21 12/10/23 Ailyn Fishman MD [address] [place] [address] PCP - General Internal Medicine 12/11/23 Paul Watt DO [address] [place] [address] [email or web address] Insurance Assigned Provider 02/04/18 08/12/18 Paul Watt DO [address] [place] [address] Insurance Assigned Provider 04/08/19 06/12/20 Karlie Wright MD, MPH [address] [address] [email or web address] Insurance Assigned Provider 05/16/21 09/12/21 documented as of this encounter Additional Source Comments The information contained in this document represents components of the legal health record. It is not the complete legal health record.[facility]
--- OUTSIDE RECORDS SUMMARY | 2025-08-07 12:45 | XMS_ITS | Encounter Summary ---
Author Organization [facility] Address 399 [facility] [address] [place] [address] Phone Care Team Providers Care Automation Analyst Name Role Phone Paul Watt DO Primary Care Provider [phone] Paul Watt DO Unavailable Karlie Wright MD, MPH Primary Care Provid er Karlie Wright MD, MPH Primary Care Provid er Paul Watt DO Unavailable Karlie Wright MD, MPH Unavailable [phone] Pcp, Unknown Primary Care Provider Unavailabl e Ailyn Fishman MD Primary Care Provid er Encounter Details Date Type Department Care Team (Late st Contact Info) Description 02/20/2018 Procedure Pass [facility], Ct Scan - [address] [address] Social History Tobacco Use Types Packs/Day Years [...] on filedocumented in this encounter Care Teams Automation Analyst Relationship Specialty Start Date End Date Paul Watt DO [address] [place] [address] [email or web address] PCP - General Family Medicine 11/10/17 08/11/18 Karlie Wright MD, MPH [address] [place] [address] [email or web address] PCP - General Family Medicine 08/12/18 09/10/18 Karlie Wright MD, MPH [address] [place] [address] [email or web address] PCP - General Family Medicine 09/11/18 06/21/21 Pcp, Unknown PCP - General 06/22/21 12/10/23 Ailyn Fishman MD [address] [place] [address] PCP - General Internal Medicine 12/11/23 Paul Watt DO [address] [place] [address] [email or web address] Insurance Assigned Provider 02/04/18 08/12/18 Paul Watt DO [address] [place] [address] [email or web address] Insurance Assigned Provider 04/08/19 06/12/20 Karlie Wright MD, MPH [address] [address] [email or web address] Insurance Assigned Provider 05/16/21 09/12/21 documented as of this encounter Additional Source Comments The information contained in this document represents components of the legal health record. It is not the complete legal health record.[facility]
--- OUTSIDE RECORDS SUMMARY | 2025-08-07 12:45 | XMS_ITS | Encounter Summary ---
Author Organization [facility] Address [address] [facility] [address] [place] [address] Phone Care Team Providers Care Sales Representative Door To Door Name Role Phone Paul Watt DO Primary Care Provider [phone] Paul Watt DO Unavailable Karlie Wright MD, MPH Primary Care Provid er Karlie Wright MD, MPH Primary Care Provid er Paul Watt DO Unavailable Karlie Wright MD, MPH Unavailable [phone]- [phone] Pcp, Unknown Primary Care Provider Unavailabl e Ailyn Fishman MD Primary Care Provid er Encounter Details Date Type Department Care Team (Late st Contact Info) Description 07/03/2018 Ancillary Orders Virtual Department [address] [place] [address] Willie Strong MD [address] [place] [address], [address] [address] [email or web address] Calculus of kidney Social History Tobacco Use [...] kidney documented in this encounter Care Teams Sales Representative Door To Door Relationship Specialty Start Date End Date Paul Watt DO [address] [place] [address] [email or web address] PCP - General Family Medicine 11/10/17 08/11/18 Karlie Wright MD, MPH [address] [place] [address] [email or web address] PCP - General Family Medicine 08/12/18 09/10/18 Karlie Wright MD, MPH [address] [place] [address] [email or web address] PCP - General Family Medicine 09/11/18 06/21/21 Pcp, Unknown PCP - General 06/22/21 12/10/23 Ailyn Fishman MD [address] [place] [address] PCP - General Internal Medicine 12/11/23 Paul Watt DO [address] [place] [address] [email or web address] Insurance Assigned Provider 02/04/18 08/12/18 Paul Watt DO [address] [place] [address] [email or web address] Insurance Assigned Provider 04/08/19 06/12/20 Karlie Wright MD, MPH [address] [place], [place] [phone] [email or web address] Insurance Assigned Provider 05/16/21 09/12/21 documented as of this encounter Additional Source Comments The information contained in this document represents components of the legal health record. It is not the complete legal health record.[facility]
--- OUTSIDE RECORDS SUMMARY | 2025-08-07 12:45 | XMS_ITS | Encounter Summary ---
Author Organization [facility] Address 399 [facility] [address] [place] [address] Phone Care Team Providers Care Candy Rolling Machine Operator Name Role Phone Paul Watt DO Primary Care Provider [phone] Paul Watt DO Unavailable Karlie Wright MD, MPH Primary Care Provid er Karlie Wright MD, MPH Primary Care Provid er Paul Watt DO Unavailable Karlie Wright MD, MPH Unavailable [phone]- [phone] Pcp, Unknown Primary Care Provider Unavailabl e Ailyn Fishman MD Primary Care Provid er Encounter Details Date Type Department Care Team (Late st Contact Info) Description 02/20/2018 Procedure Pass [facility], Ct Scan - [address] [address] Social History Tobacco Use Types Packs/Day Years [...] on filedocumented in this encounter Care Teams Candy Rolling Machine Operator Relationship Specialty Start Date End Date Paul Watt DO [address] [place] [address] [email or web address] PCP - General Family Medicine 11/10/17 08/11/18 Karlie Wright MD, MPH [address] [place] [address] [email or web address] PCP - General Family Medicine 08/12/18 09/10/18 Karlie Wright MD, MPH [address] [place] [address] [email or web address] PCP - General Family Medicine 09/11/18 06/21/21 Pcp, Unknown PCP - General 06/22/21 12/10/23 Ailyn Fishman MD [address] [place] [address] PCP - General Internal Medicine 12/11/23 Paul Watt DO [address] [place] [address] [email or web address] Insurance Assigned Provider 02/04/18 08/12/18 Paul Watt DO [address] [place] [address] [email or web address] Insurance Assigned Provider 04/08/19 06/12/20 Karlie Wright MD, MPH [address] [address] [email or web address] Insurance Assigned Provider 05/16/21 09/12/21 documented as of this encounter Additional Source Comments The information contained in this document represents components of the legal health record. It is not the complete legal health record.[facility]
--- OUTSIDE RECORDS SUMMARY | 2025-08-07 12:45 | XMS_ITS | Encounter Summary ---
Author Organization [facility] Address [address] [address] Phone Care Team Providers Care Colorist Formulator Name Role Phone Paul Watt DO Primary Care Provider [phone] Paul Watt DO Unavailable Karlie Wright MD, MPH Primary Care Provid er Karlie Wright MD, MPH Primary Care Provid er Paul Watt DO Unavailable Karlie Wright MD, MPH Unavailable [phone] Pcp, Unknown Primary Care Provider Unavailabl e Ailyn Fishman MD Primary Care Provid er Encounter Details Date Type Department Care Team (Late st Contact Info) Description 02/22/2018 Transcribe Orders [facility] [address] [place] [address] Debra Forte, MULE RIDER [address] [facility] [place] [address] Abdominal pain, unspecified abdominal location (Primary Dx) [...] EDT) Specimen Source/ Description STOOL STOOL STOOL [facility] Special Requests None [facility] DIRECT EXAM No parasites found by Trichrome Stain [facility] DIRECT EXAM NO PARASITES FOUND BY DIRECT OR CONCENTRATION METHODS [facility] Report Status 03/02/2018 FINAL [facility] Stool (Stool) 02/21/2018 9:0 0 AM EDT 02/22/2018 11:42 AM EDT us Debra Forte CNP MICROBIOLOGY - GENERA L ORDERABLES Final Result Performing Organization Address [facility] Co de Phone Number [address] [address] * Ova and parasites, stool (02/17/2018 6:00 PM EDT) Specimen Source/ Description STOOL STOOL STOOL [facility] Special Requests None [facility] DIRECT EXAM No parasites found by Trichrome Stain [facility] DIRECT EXAM NO PARASITES FOUND BY DIRECT OR CONCENTRATION METHODS [facility] Report Status 03/02/2018 FINAL [facility] Stool (Stool) 02/17/2018 6:0 0 PM EDT 02/22/2018 11:41 AM EDT Debra Forte CNP MICROBIOLOGY - GENERA L ORDERABLES Final Result Performing Organization Address City/[facility] Co de Phone Number [address] [address] documented in this encounter Visit Diagnoses Diagnosis Abdominal pain, unspecified abdominal location- Primary documented in this encounter Care Teams Colorist Formulator Relationship Specialty Start Date End Date Paul Watt DO [address] [place] [address] [email or web address] PCP - General Family Medicine 11/10/17 08/11/18 Karlie Wright MD, MPH [address] [address] [email or web address] PCP - General Family Medicine 08/12/18 09/10/18 Karlie Wright MD, MPH [address] [place] [address] [email or web address] PCP - General Family Medicine 09/11/18 06/21/21 Pcp, Unknown PCP - General 06/22/21 12/10/23 Ailyn Fishman MD [address] [place] [address] PCP - General Internal Medicine 12/11/23 Paul Watt DO [address] [place] [address] [email or web address] Insurance Assigned Provider 02/04/18 08/12/18 Paul Watt DO [address] [place] [address] [email or web address] Insurance Assigned Provider 04/08/19 06/12/20 Karlie Wright MD, MPH [address] [place] [address] [email or web address] Insurance Assigned Provider 05/16/21 09/12/21 documented as of this encounter Additional Source Comments The information contained in this document represents components of the legal health record. It is not the complete legal health record.[facility]
--- OUTSIDE RECORDS SUMMARY | 2025-08-07 12:45 | XMS_ITS | Encounter Summary ---
Author Organization [facility] Address [address] [facility] [address] [place] [address] Phone Care Team Providers Care Profiling Machine Set Up Operator Name Role Phone Paul Watt DO Primary Care Provider [phone] Paul Watt DO Unavailable Karlie Wright MD, MPH Primary Care Provid er Karlie Wright MD, MPH Primary Care Provid er Paul Watt DO Unavailable Karlie Wright MD, MPH Unavailable [phone] Pcp, Unknown Primary Care Provider Unavailabl e Ailyn Fishman MD Primary Care Provid er Encounter Details Date Type Department Care Team (Late st Contact Info) Description 02/14/2018 Transcribe Orders [facility] [address] [place] [address] Paul Watt DO 29 [facility] [place] [address] [email or web address] Social History Tobacco Use Types Packs/Day Years [...] on filedocumented in this encounter Care Teams Profiling Machine Set Up Operator Relationship Specialty Start Date End Date Paul Watt DO [address] [place] [address] [email or web address] PCP - General Family Medicine 11/10/17 08/11/18 Karlie Wright MD, MPH [address] [place] [address] [email or web address] PCP - General Family Medicine 08/12/18 09/10/18 Karlie Wright MD, MPH [address] [place] [address] [email or web address] PCP - General Family Medicine 09/11/18 06/21/21 Pcp, Unknown PCP - General 06/22/21 12/10/23 Ailyn Fishman MD 5 [place] [address] PCP - General Internal Medicine 12/11/23 Paul Watt DO [address] [place] [address] [email or web address] Insurance Assigned Provider 02/04/18 08/12/18 Paul Watt DO [address] [place] [address] [email or web address] Insurance Assigned Provider 04/08/19 06/12/20 Karlie Wright MD, MPH [address] [place] [address] [email or web address] Insurance Assigned Provider 05/16/21 09/12/21 documented as of this encounter Additional Source Comments The information contained in this document represents components of the legal health record. It is not the complete legal health record.[facility]
--- OUTSIDE RECORDS SUMMARY | 2025-08-07 12:45 | XMS_ITS | Clinical Summary ---
Author Organization [facility] Address [address] [address] Phone Care Team Providers Care Warehouse Man Name Role Phone Ailyn Fishman MD Primary [...] you interested in more education? Not on inck e 03/04/2023 Are you concerned about learning? [...] - 04/17/2018 12:14 PM EDT Patient Name: Katyln Shaikh Attending MD:: MIKE BUSCH MD Procedure Date: 04/17/2018 12:14 PM Date of : 1975 Age: 42 Admit Type: Outpatient Gender: Female Room: [place] [address] Referring MD: PAUL WATT MD Exam Type: [...] 12:14 PM Procedure Code(s): --- Professional --- 03844, Colonoscopy, flexible; with biopsy, single or multiple --- Technical --- 85102, Colonoscopy, flexible; with biopsy, single or multiple Diagnosis Code(s): --- Professional --- Z85.038, Personal history of other malignant neoplasm of largeintestine Z98.0, Intestinal bypass and anastomosis status D12.5, Benign neoplasm of sigmoid colon --- Technical --- Z85.038, Personal history of other malignant neoplasm of largeintestine Z98.0, Intestinal bypass and anastomosis status D12.5, Benign neoplasm of sigmoid colon CPT copyright 2016 [employer]. All rights reserved. The codes documented in this report are preliminary and upon vapor coater reviewmay be revised to meet current compliance requirements. [address] [place] [address] [id number] Paul Watt DO GI PROCEDURE ORDERABLES Final Re sult from Last 3 Months or Most Recently Relevant to Health Maintenance Insurance [employer] [address] [place] [address] [place] [address] [place] [address] [employer] [place] [address] [address] [address] [place] [address] Member Subscriber Plan / Payer (Ef fective 2018-Present) Name:Katlyn Shaikh Relation to Subscriber:Self Name:Katlyn Shaikh Payer ID:[id number] (NAIC) Type:PPO Address: [address] [employer] [facility] [employer] Member Subscriber Plan / Payer (Ef fective 2019-Present) Name:Katlyn Shaikh Relation to Subscriber:Self Name:Katlyn Shaikh Payer ID:[id number] (NAIC) Type:PPO Address: [place] [id number] Care Teams Warehouse Man Relationship Specialty Start Date End Date Ailyn Fishman MD [address] [place] [address] PCP - General Internal Medicine 12/11/23 Additional Source Comments The information contained in this document represents components of the legal health record. It is not the complete legal health record.[facility]
== END 2025-08-07 11:30 | disposition home or self-care (01) ==
LOC: HO.HWS 11:10
PROVIDERS: PCP Internal Medicine; Visit Provider Obstetrics & Gynecology
DX: N76.0 Acute vaginitis (principal)
CPT/HCPCS: 99213

== ENCOUNTER 2025-09-02 13:28 | Outpatient (REF) | payer OTHER, SELFPAY ==
--- NOTE | ~2025-09-02 | XR_ITS ---
EXAMINATION: XR TOES, RIGHT CLINICAL INFORMATION: S99.921A - Unspecified injury of right foot, initial encounter COMPARISON: None available. TECHNIQUE: 3 views of the right toes were obtained. FINDINGS: First toe: Soft tissue swelling. Soft tissue irregularity in the dorsal distal toe, could reflect a soft tissue wound. No visible acute fracture or dislocation. First IP and first MTP joint space is maintained. No acute fracture is otherwise seen. No radiopaque foreign body. XR/XR toe RT min 2V IMPRESSION: First toe: No visible acute fracture or dislocation. Soft tissue swelling, question soft tissue wound, clinically correlate. Electronically signed by: Valdo Guzman MD 09/02/2025 04:12 PM EDT
== END 2025-09-02 13:29 | disposition home or self-care (01) ==
LOC: HO.HMGCX 13:28
PROVIDERS: PCP Internal Medicine; Visit Provider Nurse Practitioner Family
DX: S99.921A Unspecified injury of right foot, initial encounter (principal); X18.XXXA Contact with other hot metals, initial encounter
CPT/HCPCS: 73660

== ENCOUNTER 2025-09-02 13:28 | Outpatient (AMB) | payer OTHER, SELFPAY ==
[2025-09-02 14:52] VITALS: BP 118/82; PULSE 84; TEMP 36.7; O2SAT 97; BMI 32.5
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
--- OUTSIDE RECORDS SUMMARY | 2025-09-02 17:09 | XMS_ITS | Encounter Summary ---
Author Organization [facility] Address [address] [address] Phone Care Team Providers Care Drawer Waxer Name Role Phone Paul Watt DO Primary Care Provider Paul Watt DO Unavailable Karlie Wright MD, MPH Primary Care Provid er Karlie Wright MD, MPH Primary Care Provid er Paul Watt DO Unavailable Karlie Wright MD, MPH Unavailable [phone]- [phone] Pcp, Unknown Primary Care Provider Unavailabl e Ailyn Fishman MD Primary Care Provid er Encounter Details Date Type Department Care Team (Late st Contact Info) Description 02/22/2018 Transcribe Orders [facility] [address] [place] [address] Debra Forte, EXPOSURE MACHINE OPERATOR 29 [facility] [place] [address] Abdominal pain, unspecified abdominal location (Primary Dx) [...] Specimen Source/ Description STOOL STOOL STOOL [facility] Special Requests None [facility] DIRECT EXAM No parasites found by Trichrome Stain [facility] DIRECT EXAM NO PARASITES FOUND BY DIRECT OR CONCENTRATION METHODS [facility] Report Status 03/02/2018 FINAL [facility] Stool (Stool) 02/21/2018 9:0 0 AM EDT 02/22/2018 11:42 AM EDT us Debra Forte CNP MICROBIOLOGY - GENERA L ORDERABLES Final Result Performing Organization Address [facility] Co de Phone Number [address] [address] * Ova and parasites, stool (02/17/2018 6:00 PM EDT) Specimen Source/ Description STOOL STOOL STOOL [facility] Special Requests None [facility] DIRECT EXAM No parasites found by Trichrome Stain [facility] DIRECT EXAM NO PARASITES FOUND BY DIRECT OR CONCENTRATION METHODS [facility] Report Status 03/02/2018 FINAL [facility] Stool (Stool) 02/17/2018 6:0 0 PM EDT 02/22/2018 11:41 AM EDT Debra Forte CNP MICROBIOLOGY - GENERA L ORDERABLES Final Result Performing Organization Address City/[facility] Co de Phone Number [address] [address] documented in this encounter Visit Diagnoses Diagnosis Abdominal pain, unspecified abdominal location- Primary documented in this encounter Care Teams Drawer Waxer Relationship Specialty Start Date End Date Paul Watt DO [address] [place] [address] [email or web address] PCP - General Family Medicine 11/10/17 08/11/18 Karlie Wright MD, MPH [address] [address] [email or web address] PCP - General Family Medicine 08/12/18 09/10/18 Karlie Wright MD, MPH [address] [place] [address] [email or web address] PCP - General Family Medicine 09/11/18 06/21/21 Pcp, Unknown PCP - General 06/22/21 12/10/23 Ailyn Fishman MD [address] [place] [address] PCP - General Internal Medicine 12/11/23 Paul Watt DO [address] [place] [address] [email or web address] Insurance Assigned Provider 02/04/18 08/12/18 Paul Watt DO [address] [place] [address] [email or web address] Insurance Assigned Provider 04/08/19 06/12/20 Karlie Wright MD, MPH [address] [place] [address] [email or web address] Insurance Assigned Provider 05/16/21 09/12/21 documented as of this encounter Additional Source Comments The information contained in this document represents components of the legal health record. It is not the complete legal health record.[facility]
--- OUTSIDE RECORDS SUMMARY | 2025-09-02 17:09 | XMS_ITS | Encounter Summary ---
Author Organization [facility] Address [address] [facility] [address] [place] [address] Phone Care Team Providers Care Pattern Duplicator Name Role Phone Paul Watt DO Primary Care Provider [phone] Paul Watt DO Unavailable Karlie Wright MD, MPH Primary Care Provid er Karlie Wright MD, MPH Primary Care Provid er Paul Watt DO Unavailable Karlie Wright MD, MPH Unavailable [phone] Pcp, Unknown Primary Care Provider Unavailabl e Ailyn Fishman MD Primary Care Provid er Encounter Details Date Type Department Care Team (Late st Contact Info) Description 02/20/2018 Procedure Pass [facility], Ct Scan - [address] [address] Social History Tobacco Use Types Packs/Day Years [...] on filedocumented in this encounter Care Teams Pattern Duplicator Relationship Specialty Start Date End Date Paul Watt DO [address] [place] [address] [email or web address] PCP - General Family Medicine 11/10/17 08/11/18 Karlie Wright MD, MPH [address] [place] [address] [email or web address] PCP - General Family Medicine 08/12/18 09/10/18 Karlie Wright MD, MPH [address] [place] [address] [email or web address] PCP - General Family Medicine 09/11/18 06/21/21 Pcp, Unknown PCP - General 06/22/21 12/10/23 Ailyn Fishman MD [address] [place] [address] PCP - General Internal Medicine 12/11/23 Paul Watt DO [address] [place] [address] [email or web address] Insurance Assigned Provider 02/04/18 08/12/18 Paul Watt DO [address] [place] [address] [email or web address] Insurance Assigned Provider 04/08/19 06/12/20 Karlie Wright MD, MPH [address] [address] [email or web address] Insurance Assigned Provider 05/16/21 09/12/21 documented as of this encounter Additional Source Comments The information contained in this document represents components of the legal health record. It is not the complete legal health record.[facility]
--- OUTSIDE RECORDS SUMMARY | 2025-09-02 17:09 | XMS_ITS | Encounter Summary ---
Author Organization [facility] Address [address] [facility] [address] [place] [address] Phone Care Team Providers Care Heating Element Winder Name Role Phone Paul Watt DO Primary Care Provider [phone] Paul Watt DO Unavailable Karlie Wright MD, MPH Primary Care Provid er Karlie Wright MD, MPH Primary Care Provid er Paul Watt DO Unavailable Karlie Wright MD, MPH Unavailable [phone] Pcp, Unknown Primary Care Provider Unavailabl e Ailyn Fishman MD Primary Care Provid er Encounter Details Date Type Department Care Team (Late st Contact Info) Description 04/17/2018 Procedure Pass [facility]oscopy Admitting Dept Virtual Department [address] [place] [address] Social History Tobacco Use Types Packs/Day Years [...] on filedocumented in this encounter Care Teams Heating Element Winder Relationship Specialty Start Date End Date Paul Watt DO [address] [place] [address] [email or web address] PCP - General Family Medicine 11/10/17 08/11/18 aKrlie Wright MD, MPH [address] [place] [address] [email or web address] PCP - General Family Medicine 08/12/18 09/10/18 Karlie Wright MD, MPH [address] [place] [address] [email or web address] PCP - General Family Medicine 09/11/18 06/21/21 Pcp, Unknown PCP - General 06/22/21 12/10/23 Ailyn Fishman MD [address] [place] [address] PCP - General Internal Medicine 12/11/23 Paul Watt DO [address] [place] [address] [email or web address] Insurance Assigned Provider 02/04/18 08/12/18 Paul Watt DO [address] [place] [address] Insurance Assigned Provider 04/08/19 06/12/20 Karlie Wright MD, MPH [address] [address] [email or web address] Insurance Assigned Provider 05/16/21 09/12/21 documented as of this encounter Additional Source Comments The information contained in this document represents components of the legal health record. It is not the complete legal health record.[facility]
--- OUTSIDE RECORDS SUMMARY | 2025-09-02 17:09 | XMS_ITS | Encounter Summary ---
Author Organization [facility] Address [address] [facility] [address] [place] [address] Phone Care Team Providers Care Associate Entertainment Editor Name Role Phone Paul Watt DO Primary Care Provider [phone] Paul Watt DO Unavailable Karlie Wright MD, MPH Primary Care Provid er Karlie Wright MD, MPH Primary Care Provid er Paul Watt DO Unavailable Karlie Wright MD, MPH Unavailable [phone] Pcp, Unknown Primary Care Provider Unavailabl e Ailyn Fishman MD Primary Care Provid er Encounter Details Date Type Department Care Team (Late st Contact Info) Description 02/14/2018 Transcribe Orders [facility] [address] [place] [address] Paul Watt DO [address] [facility] [place] [address] [email or web address] Social History Tobacco Use Types Packs/Day Years [...] on filedocumented in this encounter Care Teams Associate Entertainment Editor Relationship Specialty Start Date End Date Palu Watt DO [address] [place] [address] [email or web address] PCP - General Family Medicine 11/10/17 08/11/18 Karlie Wright MD, MPH [address] [place] [address] [email or web address] PCP - General Family Medicine 08/12/18 09/10/18 Karlie Wright MD, MPH [address] [place] [address] [email or web address] PCP - General Family Medicine 09/11/18 06/21/21 Pcp, Unknown PCP - General 06/22/21 12/10/23 Ailyn Fishman MD [address] [place] [address] PCP - General Internal Medicine 12/11/23 Paul Watt DO [address] [place] [address] [email or web address] Insurance Assigned Provider 02/04/18 08/12/18 Paul Watt DO [address] [place] [address] [email or web address] Insurance Assigned Provider 04/08/19 06/12/20 Karlie Wright MD, MPH [address] [place] [address] [email or web address] Insurance Assigned Provider 05/16/21 09/12/21 documented as of this encounter Additional Source Comments The information contained in this document represents components of the legal health record. It is not the complete legal health record.[facility]
--- OUTSIDE RECORDS SUMMARY | 2025-09-02 17:09 | XMS_ITS | Encounter Summary ---
Author Organization [facility] Address [address] [facility] [address] [place] [address] Phone Care Team Providers Care Recruitment Assistant Name Role Phone Paul Watt DO Primary Care Provider [phone] Paul Watt DO Unavailable Karlie Wright MD, MPH Primary Care Provid er Karlie Wright MD, MPH Primary Care Provid er Paul Watt DO Unavailable Karlie Wright MD, MPH Unavailable [phone] Pcp, Unknown Primary Care Provider Unavailabl e Ailyn Fishman MD Primary Care Provid er Encounter Details Date Type Department Care Team (Late st Contact Info) Description 02/20/2018 Procedure Pass [facility], Ct Scan - [address] [address] Social History Tobacco Use Types Packs/Day Years [...] on filedocumented in this encounter Care Teams Recruitment Assistant Relationship Specialty Start Date End Date Paul Watt DO [address] [place] [address] [email or web address] PCP - General Family Medicine 11/10/17 08/11/18 Karlie Wright MD, MPH [address] [place] [address] [email or web address] PCP - General Family Medicine 08/12/18 09/10/18 Karlie Wright MD, MPH [address] [place] [address] [email or web address] PCP - General Family Medicine 09/11/18 06/21/21 Pcp, Unknown PCP - General 06/22/21 12/10/23 Ailyn Fishman MD [address] [place] [address] PCP - General Internal Medicine 12/11/23 Paul Watt DO [address] [place] [address] [email or web address] Insurance Assigned Provider 02/04/18 08/12/18 Paul Watt DO [address] [place] [address] [email or web address] Insurance Assigned Provider 04/08/19 06/12/20 Karlie Wright MD, MPH [address] [address] [email or web address] Insurance Assigned Provider 05/16/21 09/12/21 documented as of this encounter Additional Source Comments The information contained in this document represents components of the legal health record. It is not the complete legal health record.[facility]
--- OUTSIDE RECORDS SUMMARY | 2025-09-02 17:09 | XMS_ITS | Data Portability ---
Author Organization [facility] Address [address] [place] [address] Care Team Providers Care Ehr Trainer Name Role Phone LAISHA MICHAEL Primary Care Provider Assessment No assessment recorded. Plan of Treatment Reminders Order Date Submit Date Provider Last Modified By Organization Details Last Modified Time Details Appointments None recorded. Lab None recorded. Referral None recorded. Procedures None recorded. Surgeries None recorded. Imaging None recorded. Medication Orders clobetasol 0.05 % topical ointment 2023 024 [facility] #[id number], [address] [place], [address], 16:28:28 Patient TargetsNo targets recorded. Patient Instructions Encounter Date Encounter Id Patient Instructions Last Modified By Organization Details Last Modified Time 10/18/2024 [id number] dermatitis: care instructions [email or web address] Not available 10/18/2024 16:28:26 Reason for Referral None Reported. Problems Name Problem SNOMED Code Status Onset Date Resolution Date Notes Provider Name and Address Organization Details Recorded Time Depressiv e disorder 47328916 Active [facility] Bullock [facility] 16:18:56 Malignant neoplasm of colon 604448714 Completed 202310/18/2024 Removal Reason: surgery CONRAD Keane [facility] [place], [phone] , CONRAD Dumont [facility] 16:27:43 Problem Notes None recorded. Medical Equipment None Reported. Allergies Allergen ID Allergen Name Allergen Category Reaction Reaction Severity Criticality Documentation Date Start Date Code Code System Note Provider Name and Address Organization Details Recorded Time 2520142 Substance with sulfonami de structure and antibacte rial mechanism of action (substanc e) medicatio n hives Not available Not available 10/18/2024 52717 8003 SNOMED Ольга Olmedo null, [place] - [facility] 4 16:16:05 0319488 Augmentin medicatio n abdominal pain Not available Not available 10/18/2024 08142 2 RxNorm Ольга Olmedo null, [place] - [...] in Arterial blood by Pulse oximetry Systolic And Diastolic Provider Name and Address Organization Details Last Updated DateTime 4 175.26 cm 29.5 kg/m2 43117.4 7 g 98 [degF] 18 /min 77 /min 98 % 98 % 138/92 mm[Hg] Ольга Honorio [place] - [facility] 16:22:06 Social History Question Answer Notes LastModified by [employer] Details LastModified Time Tobacco Smoking Status Current Every Day Smoker vape Ольга cooper [place] - [facility] 10/18/2024 16:20:08 Have You Had A Flu Shot This Season? Yes [email or web address] Information not available 10/18/2024 Have You Recently Traveled Abroad? No [email or web address] Information not available 10/18/2024 Sex: Unknown Functional Status Question Answer Note LastModified by [employer] Details LastModified Time How many times per week do you consume alcohol? 3-4 times per week [email or web address] Information not available 10/18/2024 Do you use any illicit or recreational drugs? No [email or web address] Information not available 10/18/2024 What is your level of alcohol consumption? Occasional [email or web address] Information not available 10/18/2024 Mental Status None recorded. Family History Relationship Description Onset Age of this Age Resolved Age Notes LastModified by Organization Details LastModified Time Father No current problems or disability [email or web address] Not available 10/18 16:19:00 Mother No current problems or disability Not available 10/18 16:19:00 Medical History No medical history recorded. Gynecological HistoryNo gynecological history recorded. Obstetrics History GPAL:G 0 P 0 0 0 0 Past Encounters Encounter ID Performer Location Encounter Start Date Encounter Closed Date Diagnosis/Indication Diagnosis SNOMED-CT Code Diagnosis ICD10 Code Diagnosis IMO Codes Diagnosis Note [id number] _[address] [place] [address] 10/10/2020 16:22:23 10/10/2020 18:18:23 [id number] CONRAD Keane 2100[address]_[facility] [address] [facility] [place] [address] 10/18/2024 16:09:58 10/18/2024 16:29:23 Contact dermatitis 09296342 L25.9 Based on your presentati on and [...] Name 10/18/2024 1 [employer] [facility] [place] [facility] [id number] Katlyn Shaikh [id number] Katlyn Shaikh Notes Date Note Type Note Provider Name and Address Organization Details Recorded Time 10/18/2024 text/html 49 y/o female here with several red, irritated spots on her belly button, upper back, and L leg. Has happened in the past, wants to make sure it isn't ringworm CONRAD Keane [address] [place], [place], [address], [place] - [facility] 10/18/2024 16:31:25 OBGyn Episode No OBEpisode recorded.
--- OUTSIDE RECORDS SUMMARY | 2025-09-02 17:10 | XMS_ITS | Clinical Summary ---
Author Organization [facility] Address [address] [address] Phone Care Team Providers Care Property Manager Name Role Phone Ailyn Fishman MD Primary [...] 08/23/2021 08/23/2018 Adult Td,Tdap Booster 10/14/2021 10/14/2011 RSV VACCINE (1 - Risk 50-74 years 1-dose series) 2024 INFLUENZA VACCINE (#1) 2025 , 08/28/2019, 08/23/2018 [...] 04/17/2018 12:14 PM EDT Patient Name: Katlyn Neel Attending MD:: MIKE BUSCH MD Procedure Date: 04/17/2018 12:14 PM Date of : 1975 Age: 42 Admit Type: Outpatient Gender: Female Room: [place] [address] Referring MD: PAUL WATT MD Exam Type: [...] 12:14 PM Procedure Code(s): --- Professional --- 51341, Colonoscopy, flexible; with biopsy, single or multiple --- Technical --- 91139, Colonoscopy, flexible; with biopsy, single or multiple Diagnosis Code(s): --- Professional --- Z85.038, Personal history of other malignant neoplasm of largeintestine Z98.0, Intestinal bypass and anastomosis status D12.5, Benign neoplasm of sigmoid colon --- Technical --- Z85.038, Personal history of other malignant neoplasm of largeintestine Z98.0, Intestinal bypass and anastomosis status D12.5, Benign neoplasm of sigmoid colon CPT copyright 2016 [employer]. All rights reserved. The codes documented in this report are preliminary and upon timber selector reviewmay be revised to meet current compliance requirements. [address] [place] [address] us Paul Watt DO GI PROCEDURE ORDERABLES Final Re sult from Last 3 Months or Most Recently Relevant to Health Maintenance Insurance [facility] [employer] [facility] [employer] [facility] [employer] [address] [place] [address] [employer]EF[employer]MIN[email or web address]MIN[employer] Care Teams Property Manager Relationship Specialty Start Date End Date Ailyn Fishman MD [address] [place] [address] PCP - General Internal Medicine 12/11/23 Additional Source Comments The information contained in this document represents components of the legal health record. It is not the complete legal health record.[facility]
--- OUTSIDE RECORDS SUMMARY | 2025-09-02 17:10 | XMS_ITS | Encounter Summary ---
Author Organization [facility] Address [address] [facility] [address] [place] [address] Phone Care Team Providers Care Activity Specialist Name Role Phone Paul Watt DO Primary Care Provider [phone] Paul Watt DO Unavailable Karlie Wright MD, MPH Primary Care Provid er Karlie Wright MD, MPH Primary Care Provid er Paul Watt DO Unavailable Karlie Wright MD, MPH Unavailable [phone] Pcp, Unknown Primary Care Provider Unavailabl e Ailyn Fishman MD Primary Care Provid er Encounter Details Date Type Department Care Team (Late st Contact Info) Description 07/03/2018 Ancillary Orders Virtual Department [address] [place] [address] Willie Strong MD [address] [place] [address], [address] [address] [email or web address] Calculus of kidney Social [...] kidney documented in this encounter Care Teams Activity Specialist Relationship Specialty Start Date End Date Paul Watt DO [address] [place] [address] [email or web address] PCP - General Family Medicine 11/10/17 08/11/18 Karlie Wright MD, MPH [address] [place] [address] [email or web address] PCP - General Family Medicine 08/12/18 09/10/18 Karlie Wright MD, MPH [address] [place] [address] [email or web address] PCP - General Family Medicine 09/11/18 06/21/21 Pcp, Unknown PCP - General 06/22/21 12/10/23 Ailyn Fishman MD [address] [place] [address] PCP - General Internal Medicine 12/11/23 Paul Watt DO [address] [place] [address] [email or web address] Insurance Assigned Provider 02/04/18 08/12/18 Paul Watt DO [address] [place] [address] [email or web address] Insurance Assigned Provider 04/08/19 06/12/20 Karlie Wright MD, MPH [address] [place], [place] [phone] [email or web address] Insurance Assigned Provider 05/16/21 09/12/21 documented as of this encounter Additional Source Comments The information contained in this document represents components of the legal health record. It is not the complete legal health record.[facility]
--- OUTSIDE RECORDS SUMMARY | 2025-09-02 17:10 | XMS_ITS | Encounter Summary ---
Author Organization [facility] Address [address] [facility] [address] [place] [address] Phone Care Team Providers Care Dragline Operator Helper Name Role Phone Paul Watt DO Primary Care Provider [phone] Paul Watt DO Unavailable Karlie Wright MD, MPH Primary Care Provid er Karlie Wright MD, MPH Primary Care Provid er Paul Watt DO Unavailable Karlie Wright MD, MPH Unavailable [phone] Pcp, Unknown Primary Care Provider Unavailabl e Ailyn Fishman MD Primary Care Provid er Encounter Details Date Type Department Care Team (Latest Contact Info) Description 01/20/2018 Ancillary Orders Virtual Department [address] [place] [address] Taras Rivers MD [address] [place] [address] [address] [address] [email or web address] 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) documented in this encounter Care Teams Dragline Operator Helper Relationship Specialty Start Date End Date Paul Watt DO [address] [place] [address] [email or web address] PCP - General Family Medicine 11/10/17 08/11/18 Karlie Wright MD, MPH [address] [place] [address] [email or web address] PCP - General Family Medicine 08/12/18 09/10/18 Karlie Wright MD, MPH [address] [place] [address] [email or web address] PCP - General Family Medicine 09/11/18 06/21/21 Pcp, Unknown PCP - General 06/22/21 12/10/23 Ailyn Fishman MD [address] [place] [address] PCP - General Internal Medicine 12/11/23 Paul Watt DO [address] [place] [address] [email or web address] Insurance Assigned Provider 02/04/18 08/12/18 Paul Watt DO [address] [place] [address] Insurance Assigned Provider 04/08/19 06/12/20 Karlie Wright MD, MPH [address] [place] [address] [email or web address] Insurance Assigned Provider 05/16/21 09/12/21 documented as of this encounter Additional Source Comments The information contained in this document represents components of the legal health record. It is not the complete legal health record.[facility]
--- OUTSIDE RECORDS SUMMARY | 2025-09-02 17:10 | XMS_ITS | Patient Health Record ---
Author Organization [facility] Address [address] [place] [address] Care Team Providers Care Vertical Lathe Operator Name Role Phone Holly SMITH, Ailyn Primary Care Provider Unavail able Migdalia Luis Unavailable [phone] Allergies Allergen (clinical drug ingredient) Drug/Non Drug [...] X ray : Foot, right 3V 06/02/2021 Next Appt Details Provider Name:Migdalia yates, 11/13/2025 08:30:00 AM, [address] [place] [address], [phone], Insurance Providers Payer Name Payer Address Payer Phone Subscriber Number Group Number Insured Name Patient Relationship to Insured Coverage Start Date Coverage End Date [employer] [address] [address] [place] [address] [id number] Katlyn Shaikh Self - patient is the insured Medical (General) History Medical History History ICD Code Anemia asthma Cancer Kidney disease Numbness Neuropathy Sciatica Chicken pox Joint implants/screws Transfusions Surgical History Surgery Date(Month/Year) knee surgery, left / complication: blood clot/DVT 2006 colon cancer 2013 portacath placement 2012 Ingrown Toe Nail 2000
== END 2025-09-02 16:28 | disposition home or self-care (01) ==
PROVIDERS: PCP Internal Medicine; Visit Provider Nurse Practitioner Family
DX: S99.921A Unspecified injury of right foot, initial encounter (principal)

== ENCOUNTER → 2025-09-02 15:53 | Outpatient (BNV) | payer OTHER, SELFPAY | PROVIDERS: PCP Internal Medicine; Visit Provider Radiology Diagnostic Ultrasound | DX: S99.921A Unspecified injury of right foot, initial encounter (principal) | CPT/HCPCS: 73660 ==

== ENCOUNTER 2025-09-03 08:02 | Outpatient (AMB) | payer OTHER, SELFPAY ==
--- OUTSIDE RECORDS SUMMARY | 2025-09-03 08:07 | XMS_ITS | Encounter Summary ---
Author Organization [facility] Address [address] [facility] [address] [place] [address] Phone Care Team Providers Care Equipment Service Lead Name Role Phone Paul Watt DO Primary Care Provider [phone] Paul Watt DO Unavailable Karlie Wright MD, MPH Primary Care Provid er Karlie Wright MD, MPH Primary Care Provid er Paul Watt DO Unavailable Karlie Wright MD, MPH Unavailable [phone] Pcp, Unknown Primary Care Provider Unavailabl e Ailyn Fishman MD Primary Care Provid er Encounter Details Date Type Department Care Team (Late st Contact Info) Description 04/17/2018 Procedure Pass [facility] Endoscopy Admitting Dept Virtual Department [address] [place] [address] Social History Tobacco Use Types Packs/Day Years [...] on filedocumented in this encounter Care Teams Equipment Service Lead Relationship Specialty Start Date End Date Paul Watt DO [address] [place] [address] [email or web address] PCP - General Family Medicine 11/10/17 08/11/18 Kalrie Wright MD, MPH [address] [place] [address] [email or web address] PCP - General Family Medicine 08/12/18 09/10/18 Karlie Wright MD, MPH [address] [place] [address] [email or web address] PCP - General Family Medicine 09/11/18 06/21/21 Pcp, Unknown PCP - General 06/22/21 12/10/23 Ailyn Fishman MD [address] [place] [address] PCP - General Internal Medicine 12/11/23 Paul Watt DO [address] [place] [address] [email or web address] Insurance Assigned Provider 02/04/18 08/12/18 Paul Watt DO [address] [place] [address] Insurance Assigned Provider 04/08/19 06/12/20 Karlie Wright MD, MPH [address] [address] [email or web address] Insurance Assigned Provider 05/16/21 09/12/21 documented as of this encounter Additional Source Comments The information contained in this document represents components of the legal health record. It is not the complete legal health record.[facility]
--- OUTSIDE RECORDS SUMMARY | 2025-09-03 08:08 | XMS_ITS | Patient Health Record ---
[facility] Address [address] [place] [address] Care Team Providers Care Large Sheetfed Press Operator Name Role Phone Holly SMITH, Ailyn Primary Care Provider Unavail able Migdalia Luis Unavailable [phone] Allergies Allergen (clinical drug ingredient) Drug/Non Drug [...] Details Provider Name:Migdalia yates, 11/13/2025 08:30:00 AM, [address] [place] [address], [id number], Insurance Providers Payer Name Payer Address Payer Phone Subscriber Number Group Number Insured Name Patient Relationship to Insured Coverage Start Date Coverage End Date Blue Benefits [address] [address] [place] [address] [id number] Katlyn Shaikh Self - patient is the insured Medical (General) History Medical History History ICD Code Anemia asthma Cancer Kidney disease Numbness Neuropathy Sciatica Chicken pox Joint implants/screws Transfusions Surgical History Surgery Date(Month/Year) knee surgery, left / complication: blood clot/DVT 2006 colon cancer 2013 portacath placement 2012 Ingrown Toe Nail 2000
--- OUTSIDE RECORDS SUMMARY | 2025-09-03 08:08 | XMS_ITS | Encounter Summary ---
Author Organization [facility] Address [address] [facility] [address] [place] [address] Phone Care Team Providers Care Tower Observer Name Role Phone Paul Watt DO Primary Care Provider [phone] Paul Watt DO Unavailable Karlie Wright MD, MPH Primary Care Provid er Karlie Wright MD, MPH Primary Care Provid er Paul Watt DO Unavailable Karlie Wright MD, MPH Unavailable [phone] Pcp, Unknown Primary Care Provider Unavailabl e Ailyn Fishman MD Primary Care Provid er Encounter Details Date Type Department Care Team (Late st Contact Info) Description 07/03/2018 Ancillary Orders Virtual Department [address] [place] [address] Willie Strong MD [address] [place] [address], [address] [address] [email or web address] Calculus of kidney Social History Tobacco Use [...] kidney documented in this encounter Care Teams Tower Observer Relationship Specialty Start Date End Date Paul Watt DO [address] [place] [address] [email or web address] PCP - General Family Medicine 11/10/17 08/11/18 Karlie Wright MD, MPH [address] [place] [address] [email or web address] PCP - General Family Medicine 08/12/18 09/10/18 Karlie Wright MD, MPH [address] [place] [address] [email or web address] PCP - General Family Medicine 09/11/18 06/21/21 Pcp, Unknown PCP - General 06/22/21 12/10/23 Ailyn Fishman MD [address] [place] [address] PCP - General Internal Medicine 12/11/23 Paul Watt DO [address] [place] [address] [email or web address] Insurance Assigned Provider 02/04/18 08/12/18 Paul Watt DO [address] [place] [address] [email or web address] Insurance Assigned Provider 04/08/19 06/12/20 Karlie Wright MD, MPH [address] [place], [place] [id number] [email or web address] Insurance Assigned Provider 05/16/21 09/12/21 documented as of this encounter Additional Source Comments The information contained in this document represents components of the legal health record. It is not the complete legal health record.[facility]
--- OUTSIDE RECORDS SUMMARY | 2025-09-03 08:08 | XMS_ITS | Encounter Summary ---
Author Organization [facility] Address [address] [facility] [address] [place] [address] Phone Care Team Providers Care Meat Pumper Name Role Phone Paul Watt DO Primary Care Provider [phone] Paul Watt DO Unavailable Karlie Wright MD, MPH Primary Care Provid er Karlie Wright MD, MPH Primary Care Provid er Paul Watt DO Unavailable Karlie Wright MD, MPH Unavailable [phone] Pcp, Unknown Primary Care Provider Unavailabl e Ailyn Fishman MD Primary Care Provid er Encounter Details Date Type Department Care Team (Latest Contact Info) Description 01/20/2018 Ancillary Orders Virtual Department [address] [place] [address] Taras Rivers MD [address] [place] [address] [email or web address] [address] [email or web address] 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) documented in this encounter Care Teams Meat Pumper Relationship Specialty Start Date End Date Paul Watt DO [address] [place] [address] [email or web address] PCP - General Family Medicine 11/10/17 08/11/18 Karlie Wright MD, MPH [address] [place] [address] [email or web address] PCP - General Family Medicine 08/12/18 09/10/18 Karlie Wright MD, MPH [address] [place] [address] [email or web address] PCP - General Family Medicine 09/11/18 06/21/21 Pcp, Unknown PCP - General 06/22/21 12/10/23 Ailyn Fishman MD [address] [place] [address] PCP - General Internal Medicine 12/11/23 Paul Watt DO [address] [place] [address] [email or web address] Insurance Assigned Provider 02/04/18 08/12/18 Paul Watt DO [address] [place] [address] Insurance Assigned Provider 04/08/19 06/12/20 Karlie Wright MD, MPH [address] [place] [address] [email or web address] Insurance Assigned Provider 05/16/21 09/12/21 documented as of this encounter Additional Source Comments The information contained in this document represents components of the legal health record. It is not the complete legal health record.[facility]
--- OUTSIDE RECORDS SUMMARY | 2025-09-03 08:08 | XMS_ITS | Clinical Summary ---
Author Organization [facility] Address [address] [address] Phone Care Team Providers Care Supervisor Epoxy Fabrication Name Role Phone Ailyn Fishman MD Primary [...] colon. Partial sigmoid colon resection with Dr Mnuiz in 2013. Course of chemotherapy. Follows with [...] Type: Outpatient Gender: Female Room: [place] [address] Referring MD: PAUL WATT MD Exam Type: [...] 12:14 PM Procedure Code(s): --- Professional --- 23576, Colonoscopy, flexible; with biopsy, single or multiple --- Technical --- 35171, Colonoscopy, flexible; with biopsy, single or multiple Diagnosis Code(s): --- Professional --- Z85.038, Personal history of other malignant neoplasm of largeintestine Z98.0, Intestinal bypass and anastomosis status D12.5, Benign neoplasm of sigmoid colon --- Technical --- Z85.038, Personal history of other malignant neoplasm of largeintestine Z98.0, Intestinal bypass and anastomosis status D12.5, Benign neoplasm of sigmoid colon CPT copyright 2016 [employer]. All rights reserved. The codes documented in this report are preliminary and upon snack bar attendant reviewmay be revised to meet current compliance requirements. [address] [place] [address] us Paul Watt DO GI PROCEDURE ORDERABLES Final Re sult from Last 3 Months or Most Recently Relevant to Health Maintenance Insurance [facility] [employer] [facility] [employer] [facility] [employer] [address] [place] [address] [place] [address] BENEFITS ADMINISTRATORS [employer] Care Teams Supervisor [employer] Fabrication Relationship Specialty Start Date End Date Ailyn Fishman MD [address] [place] [address] PCP - General Internal Medicine 12/11/23 Additional Source Comments The information contained in this document represents components of the legal health record. It is not the complete legal health record.[facility]
--- OUTSIDE RECORDS SUMMARY | 2025-09-03 08:08 | XMS_ITS | Encounter Summary ---
Author Organization [facility] Address [address] [facility] [address] [place] [address] Phone Care Team Providers Care Rn Nicu Name Role Phone Paul Watt DO Primary Care Provider [phone] Paul Watt DO Unavailable Karlie Wright MD, MPH Primary Care Provid er Karlie Wright MD, MPH Primary Care Provid er Paul Watt DO Unavailable Karlie Wright MD, MPH Unavailable [phone] Pcp, Unknown Primary Care Provider Unavailabl e Ailyn Fishman MD Primary Care Provid er Encounter Details Date Type Department Care Team (Late st Contact Info) Description 02/20/2018 Procedure Pass [facility], Ct Scan - [address] [address] Social History Tobacco Use Types Packs/Day Years [...] on filedocumented in this encounter Care Teams Rn Nicu Relationship Specialty Start Date End Date Paul Watt DO [address] [place] [address] [email or web address] PCP - General Family Medicine 11/10/17 08/11/18 Karlie Wright MD, MPH [address] [place] [address] [email or web address] PCP - General Family Medicine 08/12/18 09/10/18 Karlie Wright MD, MPH [address] [place] [address] [email or web address] PCP - General Family Medicine 09/11/18 06/21/21 Pcp, Unknown PCP - General 06/22/21 12/10/23 Ailyn Fishman MD [address] [place] [address] PCP - General Internal Medicine 12/11/23 Paul Watt DO [address] [place] [address] [email or web address] Insurance Assigned Provider 02/04/18 08/12/18 Paul Watt DO [address] [place] [address] [email or web address] Insurance Assigned Provider 04/08/19 06/12/20 Karlie Wright MD, MPH [address] [address] [email or web address] Insurance Assigned Provider 05/16/21 09/12/21 documented as of this encounter Additional Source Comments The information contained in this document represents components of the legal health record. It is not the complete legal health record.[facility]
--- OUTSIDE RECORDS SUMMARY | 2025-09-03 08:08 | XMS_ITS | Encounter Summary ---
Author Organization [facility] Address [address] [employer] [address] [place] [address] Phone Care Team Providers Care Wheel Mill Operator Name Role Phone Paul Watt DO Primary Care Provider [phone] Paul Watt DO Unavailable Karlie Wright MD, MPH Primary Care Provid er Karlie Wright MD, MPH Primary Care Provid er Paul Watt DO Unavailable Karlie Wright MD, MPH Unavailable [phone] Pcp, Unknown Primary Care Provider Unavailabl e Ailyn Fishman MD Primary Care Provid er Encounter Details Date Type Department Care Team (Late st Contact Info) Description 02/14/2018 Transcribe Orders [facility] [address] [place] [address] Paul Watt DO 29 [facility] [place] [address] Social History Tobacco Use Types Packs/Day Years [...] on filedocumented in this encounter Care Teams Wheel Mill Operator Relationship Specialty Start Date End Date Paul Watt DO [address] [place] [address] [email or web address] PCP - General Family Medicine 11/10/17 08/11/18 Karlie Wright MD, MPH [address] [place] [address] [email or web address] PCP - General Family Medicine 08/12/18 09/10/18 Karlie Wright MD, MPH [address] [place] [address] [email or web address] PCP - General Family Medicine 09/11/18 06/21/21 Pcp, Unknown PCP - General 06/22/21 12/10/23 Ailyn Fishman MD 5 [place] [address] PCP - General Internal Medicine 12/11/23 Paul Watt DO [address] [place] [address] [email or web address] Insurance Assigned Provider 02/04/18 08/12/18 Paul Watt DO [address] [place] [address] [email or web address] Insurance Assigned Provider 04/08/19 06/12/20 Karlie Wright MD, MPH [address] [place] [address] [email or web address] Insurance Assigned Provider 05/16/21 09/12/21 documented as of this encounter Additional Source Comments The information contained in this document represents components of the legal health record. It is not the complete legal health record.[facility]
--- OUTSIDE RECORDS SUMMARY | 2025-09-03 08:08 | XMS_ITS | Encounter Summary ---
Author Organization [facility] Address [address] [address] Phone Care Team Providers Care Child Development Teacher Name Role Phone Paul Watt DO Primary Care Provider [phone] Paul Watt DO Unavailable Karlie Wright MD, MPH Primary Care Provid er Karlie Wright MD, MPH Primary Care Provid er Paul Watt DO Unavailable Karlie Wright MD, MPH Unavailable [phone] Pcp, Unknown Primary Care Provider Unavailabl e Ailyn Fishman MD Primary Care Provid er Encounter Details Date Type Department Care Team (Late st Contact Info) Description 02/22/2018 Transcribe Orders [facility] [address] [place] [address] Debra Forte, WEB PRODUCTION DESIGNER [address] [facility] [place] [address] Abdominal pain, unspecified abdominal location (Primary Dx) [...] EDT) Specimen Source/ Description STOOL STOOL STOOL [facility] Special Requests None [facility] DIRECT EXAM No parasites found by Trichrome Stain [facility] DIRECT EXAM NO PARASITES FOUND BY DIRECT OR CONCENTRATION METHODS [facility] Report Status 03/02/2018 FINAL [facility] Stool (Stool) 02/21/2018 9:0 0 AM EDT 02/22/2018 11:42 AM EDT us Debra Forte CNP MICROBIOLOGY - GENERA L ORDERABLES Final Result Performing Organization Address [facility] Co de Phone Number [address] [address] * Ova and parasites, stool (02/17/2018 6:00 PM EDT) Specimen Source/ Description STOOL STOOL STOOL [facility] Special Requests None [facility] DIRECT EXAM No parasites found by Trichrome Stain [facility] DIRECT EXAM NO PARASITES FOUND BY DIRECT OR CONCENTRATION METHODS [facility] Report Status 03/02/2018 FINAL [facility] Stool (Stool) 02/17/2018 6:0 0 PM EDT 02/22/2018 11:41 AM EDT Debra Forte CNP MICROBIOLOGY - GENERA L ORDERABLES Final Result Performing Organization Address City/[facility] Co de Phone Number [address] [address] documented in this encounter Visit Diagnoses Diagnosis Abdominal pain, unspecified abdominal location- Primary documented in this encounter Care Teams Child Development Teacher Relationship Specialty Start Date End Date Paul Watt DO [address] [place] [address] [email or web address] PCP - General Family Medicine 11/10/17 08/11/18 Karlie Wright MD, MPH [address] [address] [email or web address] PCP - General Family Medicine 08/12/18 09/10/18 Karlie Wright MD, MPH [address] [place] [address] [email or web address] PCP - General Family Medicine 09/11/18 06/21/21 Pcp, Unknown PCP - General 06/22/21 12/10/23 Ailyn Fishman MD [address] [place] [address] PCP - General Internal Medicine 12/11/23 Paul Watt DO [address] [place] [address] [email or web address] Insurance Assigned Provider 02/04/18 08/12/18 Paul Watt DO [address] [place] [address] [email or web address] Insurance Assigned Provider 04/08/19 06/12/20 Karlie Wright MD, MPH [address] [place] [address] [email or web address] Insurance Assigned Provider 05/16/21 09/12/21 documented as of this encounter Additional Source Comments The information contained in this document represents components of the legal health record. It is not the complete legal health record.[facility]
--- OUTSIDE RECORDS SUMMARY | 2025-09-03 08:08 | XMS_ITS | Encounter Summary ---
Author Organization [facility] Address [address] [facility] [address] [place] [address] Phone Care Team Providers Care Utility Bill Complaints Investigator Name Role Phone Paul Watt DO Primary Care Provider [phone] Paul Watt DO Unavailable Karlie Wright MD, MPH Primary Care Provid er Karlie Wright MD, MPH Primary Care Provid er Paul Watt DO Unavailable Karlie Wright MD, MPH Unavailable [phone] Pcp, Unknown Primary Care Provider Unavailabl e Ailyn Fishman MD Primary Care Provid er Encounter Details Date Type Department Care Team (Late st Contact Info) Description 02/20/2018 Procedure Pass [facility], Ct Scan - [address] [address] Social History Tobacco Use Types Packs/Day Years [...] on filedocumented in this encounter Care Teams Utility Bill Complaints Investigator Relationship Specialty Start Date End Date Paul Watt DO [address] [place] [address] [email or web address] PCP - General Family Medicine 11/10/17 08/11/18 Karlie Wright MD, MPH [address] [place] [address] [email or web address] PCP - General Family Medicine 08/12/18 09/10/18 Karlie Wright MD, MPH [address] [place] [address] [email or web address] PCP - General Family Medicine 09/11/18 06/21/21 Pcp, Unknown PCP - General 06/22/21 12/10/23 Ailyn Fishman MD [address] [place] [address] PCP - General Internal Medicine 12/11/23 Paul Watt DO [address] [place] [address] [email or web address] Insurance Assigned Provider 02/04/18 08/12/18 Paul Watt DO [address] [place] [address] [email or web address] Insurance Assigned Provider 04/08/19 06/12/20 Karlie Wright MD, MPH [address] [address] [email or web address] Insurance Assigned Provider 05/16/21 09/12/21 documented as of this encounter Additional Source Comments The information contained in this document represents components of the legal health record. It is not the complete legal health record.[facility]
[2025-09-03 08:11] VITALS: BP 136/84; PULSE 87; TEMP 36.7; O2SAT 100; BMI 32.5
--- NOTE | 2025-09-03 08:11 | AM.OFFWIN_ITS ---
Intake Vital Signs 3 09/03/25 08:11 Height 5 ft 9 in Weight 220 lb BMI 32.5 BP 136/84 Blood Pressure Location Lt brachial Position Sitting Pulse 87 Pulse Source Pulse Oximeter Temp 98.1 F Temp Source Oral Pulse Oximetry (%) 100 Oxygen Delivery Method Room Air Intake Visit Reasons: ep right foot bleeding Intake Note: Patient presents with c/o right toe bleeding - seen on 09/02 for toe pain Patient Tobacco Use Status: Former Tobacco user Allergies shrimp (SHRIMP) Allergy (Severe, Verified 09/03/25 08:13) Anaphylaxis adhesive Allergy (Intermediate, Verified 09/03/25 08:13) Rash latex (LATEX) Allergy (Intermediate, Verified 09/03/25 08:13) RASH Penicillins Allergy (Intermediate, Verified 09/03/25 08:13) Itching Sulfa (Sulfonamide Antibiotics) (SULFA (SULFONAMIDE ANTIBIOTICS)) Allergy (Intermediate, Verified 09/03/25 08:13) HIVES levofloxacin (From LEVAQUIN) Adverse Reaction (Severe, Verified 09/03/25 08:13) AGITATION morphine (MORPHINE) Adverse Reaction (Severe, Verified 09/03/25 08:13) HEADACHES HPI HPI Comments 2 History of Present Illness0 Details History of Present Illness - The patient is a 50-year-old female pr esenting with a toe injury with suspected soft tissue infection. - The injury occurred when a steel objec t fell on her foot, causing a sprain and potential soft tissue damage. - The patient reports tenderness, swelli ng, and bleeding from the affected toe, indicating a possible infection. - She has been advised to wear a boot fo r six to eight weeks and monitor for signs of infection. - The patient has a history of an ingrow n toenail on the same foot, which is scheduled for removal in November. - She has been soaking the toe regularly to manage the ingrown toenail and prevent infection. - The patient also reports a previous fr acture of the pinky toe on the other foot, which has since healed. Review of Systems - Musculoskeletal: Reports tenderness an d swelling in the affected toe. Denies other joint pain or swelling. - Integumentary: Reports oozing from the affected toe. Denies other skin lesions or rashes. All systems reviewed and are unremarkable except as noted in HPI Physical Exam General: Cooperative, healthy appearing, comfortable, no acute distress and well developed Orientation: Patient oriented x3 Limitations: No limitations Head: Normal to inspection Ears: Hearing grossly normal bilaterally Nose: Normal External nose present Face and sinus: Normal facial exam Eyes: Appearance normal, both eyes and all related structures Neck: Normal visual inspection and Yes full ROM Respiratory: Normal respiratory effort and able to speak in complete sentences. Skin: No rashes or lesions noted Neuro: Patient oriented x3 Extremities: right great toe with edema, erythema and warmth, slightly bleeding, no purulent drainage, onychomycosis of toenails, dry, cracked skin on foot. [facility] Medical History (Updated 09/03/25 @ 08:30 by Amanda Packer PA-C) Injury of right great toe Personal history of colon cancer Family history of breast cancer Physical exam Sinus infection Ovarian cyst GERD (gastroesophageal reflux disease) IUD (intrauterine device) in place History of blood transfusion Medullary sponge kidney Asthma History of seizure Seasonal allergies RADHA (obstructive sleep apnea) History of chemotherapy (~2012) Hx of radiation therapy (~2012) Recent bereavement Left arm pain Neck pain Retrognathia Vaginal discharge Rash Subconjunctival hemorrhage of left eye Upper respiratory tract infection Hemorrhoids with complication Myalgia Right wrist pain Right shoulder pain Screen for STD (sexually transmitted disease) Retained tampon COVID-19 Conjunctivitis Well woman exam Breast pain Shortness of breath PVC (premature ventricular contraction) PAC (premature atrial contraction) Colon cancer (~2012) DVT (deep venous thrombosis) Heart palpitations Shortness of breath Surgical History History of kidney surgery Hx of colonoscopy History of esophagogastroduodenoscopy (EGD) H/O knee surgery History of colon surgery Family History Mother High blood pressure COPD (chronic obstructive pulmonary disease) History of four vessel coronary artery bypass graft Mental health disorder Father High blood pressure Cancer Maternal Grandfather Colon cancer Paternal Aunt Colon cancer Social History Housing: House Are you a primary primary care coordinator to a significant other at home: No Do you presently have visiting nurse or other home services: No Alcohol intake: current Alcohol intake frequency: a few times a month Alcohol type: wine Patient Tobacco Use Status: Former Tobacco user Tobacco use type: Smokeless Tobacco e-Cigarette/Vaping Use: Currently Using Second Hand Smoke Exposure: Yes service: No Current occupational status: employed 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 Current occupational exposures/hazards: No Cognitive needs: No Hearing needs: No Vision needs: No Female Reproductive History Menstrual Age of Menarche: 10 Physical Exam Vital Signs: Last Vital Signs Temp 98.1 F 09/03/25 08:11 Pulse 87 09/03/25 08:11 BP 136/84 09/03/25 08:11 Pulse Ox 100 09/03/25 08:11 Oxygen Delivery Method Room Air 09/03/25 08:11 BMI result Body Mass Index 32.5 Assessment & Plan Assessment & Plan (1) Cellulitis of toe of right foot: Code(s): L03.031 - Cellulitis of right toe Plan: Plan Patient was informed and verbally consented to the use of an ambient scribe for clinic note documentation during this visit. Right great toe cellulitis - Initiate treatment with Cephalexin to address potential infection. - Wean off boot as able over the next 2-4 weeks. - Recommend soaking the toe in Epsom salts to alleviate symptoms. - Plan follow-up with first officer for further evaluation and management. Ingrown Toenail With Planned Removal - Scheduled removal of the ingrown toenail in November with [employer] Podiatry. Messaged Podiatry for sooner follow up. Medications: New 2 cephalexin 500 mg PO Q6H 28 caps 0RF Coding Level of Care Code Est Pt Level 3 (77848) Diagnoses Cellulitis of toe of right foot L03.031
== END 2025-09-03 08:33 | disposition home or self-care (01) ==
PROVIDERS: PCP Internal Medicine; Visit Provider Physician Assistant
DX: L03.031 Cellulitis of right toe (principal)

== ENCOUNTER 2025-09-04 14:14 | Outpatient (REF) | payer OTHER, SELFPAY | END 2025-09-04 14:15 | disposition home or self-care (01) | LOC: HO.LNP 14:14 | PROVIDERS: PCP Internal Medicine; Visit Provider Student in an Organized Health Care Education/Training Program | DX: S90.211A Contusion of right great toe with damage to nail, initial encounter (principal); L03.031 Cellulitis of right toe; L60.0 Ingrowing nail; W20.8XXA Other cause of strike by thrown, projected or falling object, initial encounter | CPT/HCPCS: 11730; 87070; 87205; J2003 ==

== ENCOUNTER 2025-09-04 14:14 | Outpatient (AMB) | payer OTHER, SELFPAY ==
[2025-09-04 14:38] VITALS: BMI 32.5
--- NOTE | 2025-09-04 14:38 | A.OFFVIS_ITS ---
Vital Signs 09/04/25 14:38 Height 5 ft 9 in Weight 220 lb BMI 32.5 Intake Visit Reasons: F/U cellulitis, Rt Great Toe Intake Note: Katlyn is a 50 year old female who presents today as a new patient for an evaluation of her right hallux cellulites. Patient reports injury occurred this Tuesday when a steel bar fell on her toe. She was seen at the walk in clinic on 09/02/25 where she was provided with the post-op shoe and she was prescribed cephalexin on 09/03/25 and she has not noticed a differnce. Allergies shrimp (SHRIMP) Allergy (Severe, Verified 09/04/25 14:39) Anaphylaxis adhesive Allergy (Intermediate, Verified 09/04/25 14:39) Rash latex (LATEX) Allergy (Intermediate, Verified 09/04/25 14:39) RASH Penicillins Allergy (Intermediate, Verified 09/04/25 14:39) Itching Sulfa (Sulfonamide Antibiotics) (SULFA (SULFONAMIDE ANTIBIOTICS)) Allergy (Intermediate, Verified 09/04/25 14:39) HIVES levofloxacin (From LEVAQUIN) Adverse Reaction (Severe, Verified 09/04/25 14:39) AGITATION morphine (MORPHINE) Adverse Reaction (Severe, Verified 09/04/25 14:39) HEADACHES HPI Comments Details: The patient is a 50-year-old female with a PMH as seen below presenting with right hallux trauma with suspected nail damage and discomfort from upward toenail growth. Approximately 12 years prior, the patient experienced an ingrown toenail that was partially removed. However, the condition recurred and worsened, eventually necessitating complete nail removal. Presently, the patient reports that the toenail exhibits minimal growth and tends to grow upward, causing discomfort. Recently, on Tuesday, the patient sustained trauma to the toe while handling a grill where a steel bar fell on her foot, resulting in significant pain and deformation of the nail, which appears to have been crushed into the skin. The patient was prescribed Keflex and has been taking the me dication as directed. She has been managing her condition at home with bandaging and avoiding certain adhesives due to her allergies. She denies any other pedal concerns. Denies any N/V/F/C. [facility] Medical History (Updated 09/07/25 @ 13:13 by Lyndsey Rodgers DPM) Cellulitis of great toe Nail disorder Traumatic subungual ecchymosis of right great toe Injury of right great toe Personal history of colon cancer Family history of breast cancer Physical exam Sinus infection Ovarian cyst GERD (gastroesophageal reflux disease) IUD (intrauterine device) in place History of blood transfusion Medullary sponge kidney Asthma History of seizure Seasonal allergies RADHA (obstructive sleep apnea) History of chemotherapy (~2012) Hx of radiation therapy (~2012) Recent bereavement Left arm pain Neck pain Retrognathia Vaginal discharge Rash Subconjunctival hemorrhage of left eye Upper respiratory tract infection Hemorrhoids with complication Myalgia Right wrist pain Right shoulder pain Screen for STD (sexually transmitted disease) Retained tampon COVID-19 Conjunctivitis Well woman exam Breast pain Shortness of breath PVC (premature ventricular contraction) PAC (premature atrial contraction) Colon cancer (~2012) DVT (deep venous thrombosis) Heart palpitations Shortness of breath Surgical History History of kidney surgery Hx of colonoscopy History of esophagogastroduodenoscopy (EGD) H/O knee surgery History of colon surgery Family History Mother High blood pressure COPD (chronic obstructive pulmonary disease) History of four vessel coronary artery bypass graft Mental health disorder Father High blood pressure Cancer Maternal Grandfather Colon cancer Paternal Aunt Colon cancer Social History Housing: House Are you a primary floor care specialist to a significant other at home: No Do you presently have visiting nurse or other home services: No Alcohol intake: current Alcohol intake frequency: a few times a month Alcohol type: wine Patient Tobacco Use Status: Former Tobacco user Tobacco use type: Smokeless Tobacco e-Cigarette/Vaping Use: Currently Using Second Hand Smoke Exposure: Yes service: No Current occupational status: employed 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 - Neurological: Denies numbness or tingling; reports occasional burning sensation. - Integumentary: Reports bleeding from the right hallux; denies purulence. All systems reviewed & are unremarkable except as noted in HPI and below Physical Exam Vital Signs: BMI result Body Mass Index 32.5 Extrem Other: RLE Focused Physical Exam: Derm: Loosely adhered portion of nail noted to the right hallux, loosely attached to the nail bed. Mild edema noted. No active bleeding, purulence, or drainage noted. No open lesions, abrasions, or wounds noted. Minimal erythema noted. Vasc: DP/PT pulses palpable. CFT < 3 secs. Temp gradient warm to warm. Pedal h air absent. No varicosities noted. Neuro: Protective sensations grossly intact. MSK: Pain on palpation to the hallux. ROM of the forefoot WNL with reduced mobility to the hallux. ROM of the hindfoot and ankle WNL. No crepitus or fluctuance noted. Mildly antalgic gait noted with the use of a post-op shoe. Office Procedures AMB Debridement/Avulsion Podia Details: Procedure: Right hallux total nail avulsion Cleansed right hallux with an alcohol swab and injected 10cc of 1%lidocaine plain in a hallux block fashion. Next applied a tourniquet to the right hallux and then cleansed the right hallux with Betadine. Attention was drawn to the partially detached right hallucal nail and a Dover was utilized to free the offending nail from the nail bed and nail matrix. Next using a hemostat, the offending nail was removed completely. A curette was used to inspect and remove any remaining spicules. Obtained a wound culture to be sent for microbiology. Next, Triple antibiotic ointment, 2x2 gauze, and Coban was then applied to the right hallux. Procedure was done with no incidents. Provided patient with aftercare instructions. 32218 Partial/Total nail avulsion (1 nail) Procedure code (CPT) selection complete Office Meds lidocaine HCl 10 mg/mL (1 %) injection solution Performing Provider: Lyndsey Rodgers DPM Performing Location: [facility] Podiatry-[facility] Administered by: Lyndsey Rodgers DPM on 09/07/25 13:06 Dose Route Admin Location Dispensed Lot Number Expiration Date [facility] Computer Field Technician 10 mL subcut 10 mL [id number] [employer] Total Dispensed Waste 10 mL 0 % Triple Antibiotic 3.5 mg-400 unit-5,000 unit topical ointment packet Performing Provider: Lyndsey Rodgers DPM Performing Location: [facility] Administered by: Lyndsey Rodgers DPM on 09/07/25 13:06 Dose Route Admin Location Dispensed Lot Number Expiration Date [facility] Computer Field Technician 1 appl topical 1 appl [id number] [employer] povidone-iodine 10 % topical swab Performing Provider: Lyndsey Rodgers DPM Performing Location: [facility] Administered by: Lyndsey Rodgers DPM on 09/07/25 13:06 Dose Route Admin Location Dispensed Lot Number Expiration Date [facility] Computer Field Technician 2 appl topical 2 appl [id number] [employer] [place]. ethyl chloride 100 % topical spray Performing Provider: Lyndsey Rodgers DPM Performing Location: [facility] Administered by: Lyndsey Rodgers DPM on 09/07/25 13:06 Dose Route Admin Location Dispensed Lot Number Expiration Date [facility] Computer Field Technician 3 appl topical 116 mL [id number] [employer]. Results Reviewed Results Reviewed: Obtained a wound culture of the right hallux to be sent for microbiology. Podiatry Read of Right toe xrays (09/02/25): Detached nail noted. No acute fractures or dislocations noted. Arthritic changes noted to the distal phalanx of the hallux. Right toe xrays (09/02/25): FINDINGS: First toe: Soft tissue swelling. Soft tissue irregularity in the dorsal distal toe, could reflect a soft tissue wound. No visible acute fracture or dislocation. First IP and first MTP joint space is maintained. No acute fracture is otherwise seen. No radiopaque foreign body. IMPRESSION: First toe: No visible acute fracture or dislocation. Soft tissue swelling, question soft tissue wound, clinically correlate. Assessment & Plan Assessment & Plan (1) Injury of right great toe: Code(s): S99.921A - Unspecified injury of right foot, initial encounter Category: Medical Qualifiers: Encounter type: initial encounter Qualified Code(s): S99.921A - Unspecified injury of right foot, initial encounter (2) Nail disorder: Code(s): L60.9 - Nail disorder, unspecified Category: Medical (3) Traumatic subungual ecchymosis of right great toe: Code(s): S90.211A - Contusion of right great toe with damage to nail, initial encounter Category: Medical (4) Cellulitis of great toe: Code(s): L03.039 - Cellulitis of unspecified toe Category: Medical Qualifiers: Laterality: right Qualified Code(s): L03.031 - Cellulitis of right toe Plan Patient was informed and verbally consented to the use of an ambient scribe for clinic note documentation during this visit. I discussed with the patient the approach to completely remove the toenail as a solution to prevent further complications and ensure proper healing, particularl y given her history of nail issues. I reviewed the continuing of antibiotics to manage infection risk and emphasized the importance of follow-up care in two weeks to assess healing and further progress. I explained the procedure to the patient, detailing the process involving local anesthesia, and highlighted post- procedure care instructions, such as soaking the toe in Epsom salt and applying Neosporin with a bandage. Consideration was given to her work commitments, advising rest to facilitate healing - provided a work note. - Performed a right hallux total nail avulsion. - Obtained a wound culture to be sent for microbiology. - Continue Keflex as prescribed to manage infection risk. - Advised patient to avoid tight fitting shoes. - Advised patient to avoid barefoot walking and to wear supportive shoe gear. RTC in 2 weeks. Orders: Orders Routine Culture w Gram Stain 09/04/25 L03.039 - Cellulitis of unspecified toe, L60.9 - Nail disorder, unspecified, S90.211A - Contusion of right great toe with damage to nail, initial encounter, S99.921A - Unspecified injury of right foot, initial encounter AMB Debridement/Avulsion Podiatry 09/04/25 L60.9 - Nail disorder, unspecified, S90.211A - Contusion of right great toe with damage to nail, initial encounter, S99.921A - Unspecified injury of right foot, initial encounter Coding Level of Care Code New Pt Level 4 (82107) Diagnoses Injury of right great toe, initial encounter S99.921A Encounter type: initial encounter Nail disorder L60.9 Traumatic subungual ecchymosis of right great toe S90.211A Cellulitis of great toe of right foot L03.031 Laterality: right CPT Codes Skin Debridement - CPT: 72791 Partial/Total nail avulsion (1 nail) ([id number]) Time Spent (min) 66 Comment 25 mins for procedure
--- OUTSIDE RECORDS SUMMARY | 2025-09-04 18:23 | XMS_ITS | Encounter Summary ---
Author Organization [facility] Address [address] [place] [phone] Phone Care Team Providers Care Electronic Engraver Name Role Phone Paul Watt DO Primary Care Provider [phone] Paul Watt DO Unavailable Karlie Wright MD, MPH Primary Care Provid er Karlie Wright MD, MPH Primary Care Provid er Paul Watt DO Unavailable Karlie Wright MD, MPH Unavailable [phone] Pcp, Unknown Primary Care Provider Unavailabl e Ailyn Fishman MD Primary Care Provid er Encounter Details Date Type Department Care Team (Late st Contact Info) Description 02/20/2018 Procedure Pass [facility], Ct Scan - [address] [address] Social History Tobacco Use Types Packs/Day Years [...] filedocumented in this encounter Care Teams Electronic Engraver Relationship Specialty Start Date End Date Paul Watt DO [address] [place] [phone] [email or web address] PCP - General Family Medicine 11/10/17 08/11/18 Karlie Wright MD, MPH [address] [place] [phone] [email or web address] PCP - General Family Medicine 08/12/18 09/10/18 Karlie Wright MD, MPH [address] [place] [phone] [email or web address] PCP - General Family Medicine 09/11/18 06/21/21 Pcp, Unknown PCP - General 06/22/21 12/10/23 Ailyn Fishman MD [address] [place] [phone] PCP - General Internal Medicine 12/11/23 Paul Watt DO [address] [place] [phone] [email or web address] Insurance Assigned Provider 02/04/18 08/12/18 Paul Watt DO [address] [place] [phone] [email or web address] Insurance Assigned Provider 04/08/19 06/12/20 Karlie Wright MD, MPH [address] [address] [email or web address] Insurance Assigned Provider 05/16/21 09/12/21 documented as of this encounter Additional Source Comments The information contained in this document represents components of the legal health record. It is not the complete legal health record.[facility]
--- OUTSIDE RECORDS SUMMARY | 2025-09-04 18:23 | XMS_ITS | Clinical Summary ---
Author Organization [facility] Address [address] [address] Phone Care Team Providers Care Leather Worker Name Role Phone Ailyn Fishman MD Primary [...] 43 Admit Type: Outpatient Gender: Female Room: [place] [address] Referring MD: PAUL WATT MD Exam Type: [...] 12:14 PM Procedure Code(s): --- Professional --- 25355, Colonoscopy, flexible; with biopsy, single or multiple --- Technical --- 10959, Colonoscopy, flexible; with biopsy, single or multiple Diagnosis Code(s): --- Professional --- Z85.038, Personal history of other malignant neoplasm of largeintestine Z98.0, Intestinal bypass and anastomosis status D12.5, Benign neoplasm of sigmoid colon --- Technical --- Z85.038, Personal history of other malignant neoplasm of largeintestine Z98.0, Intestinal bypass and anastomosis status D12.5, Benign neoplasm of sigmoid colon CPT copyright 2016 [employer]. All rights reserved. The codes documented in this report are preliminary and upon custodial laborer reviewmay be revised to meet current compliance requirements. [address] [place] [phone] us Paul Watt DO GI PROCEDURE ORDERABLES Final Re sult from Last 3 Months or Most Recently Relevant to Health Maintenance Insurance [facility] [employer] [facility] [employer] [facility] [employer] [address] [place] [address] [place] [address] [employer]EFITS ADMINIST[employer]AT[employer] Care Teams Leather Worker Relationship Specialty Start Date End Date Ailyn Fishman MD [address] [place] [address] PCP - General Internal Medicine 12/11/23 Additional Source Comments The information contained in this document represents components of the legal health record. It is not the complete legal health record.[facility]
--- OUTSIDE RECORDS SUMMARY | 2025-09-04 18:23 | XMS_ITS | Encounter Summary ---
Author Organization [facility] Address [address] [facility] [address] [place] [address] Phone Care Team Providers Care Senior Accounting Clerk Name Role Phone Paul Watt DO Primary Care Provider [phone] Paul Watt DO Unavailable Karlie Wright MD, MPH Primary Care Provid er Karlie Wright MD, MPH Primary Care Provid er Paul Watt DO Unavailable Karlie Wright MD, MPH Unavailable [phone] Pcp, Unknown Primary Care Provider Unavailabl e Ailyn Fishman MD Primary Care Provid er Encounter Details Date Type Department Care Team (Late st Contact Info) Description 04/17/2018 Procedure Pass [facility] Endoscopy Admitting Dept Virtual Department [address] [place] [address] Social History Tobacco Use Types Packs/Day Years [...] on filedocumented in this encounter Care Teams Senior Accounting Clerk Relationship Specialty Start Date End Date Paul Watt DO [address] [place] [address] [email or web address] PCP - General Family Medicine 11/10/17 08/11/18 Karlie Wright MD, MPH [address] [place] [address] [email or web address] PCP - General Family Medicine 08/12/18 09/10/18 Karlie Wright MD, MPH [address] [place] [address] [email or web address] PCP - General Family Medicine 09/11/18 06/21/21 Pcp, Unknown PCP - General 06/22/21 12/10/23 Ailyn Fishman MD [address] [place] [address] PCP - General Internal Medicine 12/11/23 Paul Watt DO [address] [place] [address] [email or web address] Insurance Assigned Provider 02/04/18 08/12/18 Paul Watt DO [address] [place] [address] Insurance Assigned Provider 04/08/19 06/12/20 Karlie Wright MD, MPH [address] [address] [email or web address] Insurance Assigned Provider 05/16/21 09/12/21 documented as of this encounter Additional Source Comments The information contained in this document represents components of the legal health record. It is not the complete legal health record.[facility]
--- OUTSIDE RECORDS SUMMARY | 2025-09-04 18:23 | XMS_ITS | Encounter Summary ---
Author Organization [facility] Address [address] [facility] [address] [place] [address] Phone Care Team Providers Care Calender Wind Up Helper Name Role Phone Paul Watt DO Primary Care Provider [phone] Paul Watt DO Unavailable Karlie Wright MD, MPH Primary Care Provid er Karlie Wright MD, MPH Primary Care Provid er Paul Watt DO Unavailable Karlie Wright MD, MPH Unavailable [phone] Pcp, Unknown Primary Care Provider Unavailabl e Ailyn Fishman MD Primary Care Provid er Encounter Details Date Type Department Care Team (Late st Contact Info) Description 07/03/2018 Ancillary Orders Virtual Department [address] [place] [address] Willie Strong MD [address] [place] [address], [address] [address] [email or web address] Calculus of kidney Social History Tobacco Use [...] kidney documented in this encounter Care Teams Calender Wind Up Helper Relationship Specialty Start Date End Date Paul Watt DO [address] [place] [address] [email or web address] PCP - General Family Medicine 11/10/17 08/11/18 Karlie Wright MD, MPH [address] [place] [address] [email or web address] PCP - General Family Medicine 08/12/18 09/10/18 Karlie Wright MD, MPH [address] [place] [address] [email or web address] PCP - General Family Medicine 09/11/18 06/21/21 Pcp, Unknown PCP - General 06/22/21 12/10/23 Ailyn Fishman MD [address] [place] [address] PCP - General Internal Medicine 12/11/23 Paul Watt DO [address] [place] [address] [email or web address] Insurance Assigned Provider 02/04/18 08/12/18 Paul Watt DO [address] [place] [address] [email or web address] Insurance Assigned Provider 04/08/19 06/12/20 Karlie Wright MD, MPH [address] [place], [place] [phone] [email or web address] Insurance Assigned Provider 05/16/21 09/12/21 documented as of this encounter Additional Source Comments The information contained in this document represents components of the legal health record. It is not the complete legal health record.[facility]
--- OUTSIDE RECORDS SUMMARY | 2025-09-04 18:23 | XMS_ITS | Data Portability ---
Author Organization [facility] Address [address] [place] [address] Care Team Providers Care Membership Sales Representative Name Role Phone LAISHA MICHAEL Primary Care Provider [phone] Assessment No assessment recorded. Plan of Treatment Reminders Order Date Submit Date Provider Last Modified By Organization Details Last Modified Time Details Appointments None recorded. Lab None recorded. Referral None recorded. Procedures None recorded. Surgeries None recorded. Imaging None recorded. Medication Orders clobetasol 0.05 % topical ointment 2023 024 [facility] #[id number], [address] [place], [address], 16:28:28 Patient TargetsNo targets recorded. Patient Instructions Encounter Date Encounter Id Patient Instructions Last Modified By Organization Details Last Modified Time 10/18/2024 [id number] dermatitis: care instructions [email or web address] Not available 10/18/2024 16:28:26 Reason for Referral None Reported. Problems Name Problem SNOMED Code Status Onset Date Resolution Date Notes Provider Name and Address Organization Details Recorded Time Depressiv e disorder 74274457 Active CONRAD Bullock [facility] 16:18:56 Malignant neoplasm of colon 508013643 Completed 202310/18/2024 Removal Reason: surgery CONRAD Keane [facility] [place], [id number] , CONRAD Dumont [facility] 16:27:43 Problem Notes None recorded. Medical Equipment None Reported. Allergies Allergen ID Allergen Name Allergen Category Reaction Reaction Severity Criticality Documentation Date Start Date Code Code System Note Provider Name and Address Organization Details Recorded Time 5804489 Substance with sulfonami de structure and antibacte rial mechanism of action (substanc e) medicatio n hives Not available Not available 10/18/2024 15418 8003 SNOMED Ольга Olmedo null, [place] - [facility] 4 16:16:05 7268912 Augmentin medicatio n abdominal pain Not available Not available 10/18/2024 03876 2 RxNorm Ольга Olmedo null, [place] - [...] Updated DateTime 4 175.26 cm 29.5 kg/m2 13587.4 7 g 98 [degF] 18 /min 77 /min 98 % 98 % 138/92 mm[Hg] Ольга Honorio [place] - [facility] 16:22:06 Social History Question Answer Notes LastModified by Bubbl Details LastModified Time Tobacco Smoking Status Current Every Day Smoker vape Ольга cooper [place] - [facility] 10/18/2024 16:20:08 Have You Had A Flu Shot This Season? Yes [email or web address] Information not available 10/18/2024 Have You Recently Traveled Abroad? No [email or web address] Information not available 10/18/2024 Sex: Unknown Functional Status Question Answer Note LastModified by Bubbl Details LastModified Time How many times per week do you consume alcohol? 3-4 times per week [email or web address] Information not available 10/18/2024 Do you use any illicit or recreational drugs? No Information not available 10/18/2024 What is your level of alcohol consumption? Occasional [email or web address] Information not available 10/18/2024 Mental Status None recorded. Family History Relationship Description Onset Age of this Age Resolved Age Notes LastModified by Organization Details LastModified Time Father No current problems or disability [email or web address] Not available 10/18 16:19:00 Mother No current problems or disability [email or web address] Not available 10/18 16:19:00 Medical History No medical history recorded. Gynecological HistoryNo gynecological history recorded. Obstetrics History GPAL:G 0 P 0 0 0 0 Past Encounters Encounter ID Performer Location Encounter Start Date Encounter Closed Date Diagnosis/Indication Diagnosis SNOMED-CT Code Diagnosis ICD10 Code Diagnosis IMO Codes Diagnosis Note [id number] _[address] [place] [address] 10/10/2020 16:22:23 10/10/2020 18:18:23 [id number] CONRAD Keane [address] [address] [facility] SHRUTHI Billingsley [address] 10/18/2024 16:09:58 10/18/2024 16:29:23 Contact dermatitis 70343539 L25.9 Based on your presentati on and [...] Name 10/18/2024 1 [employer] [facility] [place] [facility] [facility] [id number] Katlyn Shaikh [id number] 782 Katlyn Shaikh Notes Date Note Type Note Provider Name and Address Organization Details Recorded Time 10/18/2024 text/html 49 y/o female here with several red, irritated spots on her belly button, upper back, and L leg. Has happened in the past, wants to make sure it isn't ringworm CONRAD Keane [address], [place], [address], [place] - [facility] 10/18/2024 16:31:25 OBGyn Episode No OBEpisode recorded.
--- OUTSIDE RECORDS SUMMARY | 2025-09-04 18:23 | XMS_ITS | Encounter Summary ---
Author Organization [facility] Address [address] [facility] [address] [place] [address] Phone Care Team Providers Care Access Manager Name Role Phone Paul Watt DO Primary Care Provider [phone] Paul Watt DO Unavailable Karlie Wright MD, MPH Primary Care Provid er Karlie Wright MD, MPH Primary Care Provid er Paul Watt DO Unavailable Karlie Wright MD, MPH Unavailable [phone] Pcp, Unknown Primary Care Provider Unavailabl e Ailyn Fishman MD Primary Care Provid er Encounter Details Date Type Department Care Team (Latest Contact Info) Description 01/20/2018 Ancillary Orders Virtual Department [address] [place] [address] Taras Rivers MD [address] [place] [address] [address] [address] [email or web address] 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) documented in this encounter Care Teams Access Manager Relationship Specialty Start Date End Date Paul Watt DO [address] [place] [address] [email or web address] PCP - General Family Medicine 11/10/17 08/11/18 Karlie Wright MD, MPH [address] [place] [address] [email or web address] PCP - General Family Medicine 08/12/18 09/10/18 Karlie Wright MD, MPH [address] [place] [address] [email or web address] PCP - General Family Medicine 09/11/18 06/21/21 Pcp, Unknown PCP - General 06/22/21 12/10/23 Ailyn Fishman MD [address] [place] [address] PCP - General Internal Medicine 12/11/23 Paul Watt DO [address] [place] [address] [email or web address] Insurance Assigned Provider 02/04/18 08/12/18 Paul Watt DO [address] [place] [address] Insurance Assigned Provider 04/08/19 06/12/20 Karlie Wright MD, MPH [address] [place] [address] [email or web address] Insurance Assigned Provider 05/16/21 09/12/21 documented as of this encounter Additional Source Comments The information contained in this document represents components of the legal health record. It is not the complete legal health record.[facility]
--- OUTSIDE RECORDS SUMMARY | 2025-09-04 18:23 | XMS_ITS | Patient Health Record ---
[facility] Address [address] [place] [address] Care Team Providers Care Marketing Research Intern Name Role Phone Holly MSITH, Ailyn Primary Care Provider Unavail able Migdalia Luis Unavailable [phone] Allergies Allergen (clinical drug ingredient) Drug/Non Drug [...] Details Provider Name:Migdalia yates, 11/13/2025 08:30:00 AM, [address] [place] [address], [phone], Insurance Providers Payer Name Payer Address Payer Phone Subscriber Number Group Number Insured Name Patient Relationship to Insured Coverage Start Date Coverage End Date Blue Benefits [address] [address] [place] [address] [id number] Katlyn Shaikh Self - patient is the insured Medical (General) History Medical History History ICD Code Anemia asthma Cancer Kidney disease Numbness Neuropathy Sciatica Chicken pox Joint implants/screws Transfusions Surgical History Surgery Date(Month/Year) knee surgery, left / complication: blood clot/DVT 2006 colon cancer 2013 portacath placement 2012 Ingrown Toe Nail 2000
--- OUTSIDE RECORDS SUMMARY | 2025-09-04 18:23 | XMS_ITS | Encounter Summary ---
Author Organization [facility] Address [address] [address] Phone Care Team Providers Care Resource Conservation Manager Name Role Phone Paul Watt DO Primary Care Provider [phone] Paul Watt DO Unavailable Karlie Wright MD, MPH Primary Care Provid er Karlie Wright MD, MPH Primary Care Provid er Paul Watt DO Unavailable Karlie Wright MD, MPH Unavailable [phone] Pcp, Unknown Primary Care Provider Unavailabl e Ailyn Fishman MD Primary Care Provid er Encounter Details Date Type Department Care Team (Late st Contact Info) Description 02/22/2018 Transcribe Orders [facility] [address] [place] [address] Debra Forte, VEGETABLE VENDOR [address] [facility] [place] [address] Abdominal pain, unspecified abdominal location (Primary Dx) [...] EDT) Specimen Source/ Description STOOL STOOL STOOL [facility] Special Requests None [facility] DIRECT EXAM No parasites found by Trichrome Stain [facility] DIRECT EXAM NO PARASITES FOUND BY DIRECT OR CONCENTRATION METHODS [facility] Report Status 03/02/2018 FINAL [facility] Stool (Stool) 02/21/2018 9:0 0 AM EDT 02/22/2018 11:42 AM EDT us Debra Forte CNP MICROBIOLOGY - GENERA L ORDERABLES Final Result Performing Organization Address [facility] Co de Phone Number [address] [address] * Ova and parasites, stool (02/17/2018 6:00 PM EDT) Specimen Source/ Description STOOL STOOL STOOL [facility] Special Requests None [facility] DIRECT EXAM No parasites found by Trichrome Stain [facility] DIRECT EXAM NO PARASITES FOUND BY DIRECT OR CONCENTRATION METHODS [facility] Report Status 03/02/2018 FINAL [facility] Stool (Stool) 02/17/2018 6:0 0 PM EDT 02/22/2018 11:41 AM EDT Debra Forte CNP MICROBIOLOGY - GENERA L ORDERABLES Final Result Performing Organization Address City/[facility] Co de Phone Number [address] [address] documented in this encounter Visit Diagnoses Diagnosis Abdominal pain, unspecified abdominal location- Primary documented in this encounter Care Teams Resource Conservation Manager Relationship Specialty Start Date End Date Paul Watt DO [address] [place] [address] [email or web address] PCP - General Family Medicine 11/10/17 08/11/18 Karlie Wright MD, MPH [address] [address] [email or web address] PCP - General Family Medicine 08/12/18 09/10/18 Karlie Wright MD, MPH [address] [place] [address] [email or web address] PCP - General Family Medicine 09/11/18 06/21/21 Pcp, Unknown PCP - General 06/22/21 12/10/23 Ailyn Fishman MD [address] [place] [address] PCP - General Internal Medicine 12/11/23 Paul Watt DO [address] [place] [address] [email or web address] Insurance Assigned Provider 02/04/18 08/12/18 Paul Watt DO [address] [place] [address] [email or web address] Insurance Assigned Provider 04/08/19 06/12/20 Karlie Wright MD, MPH [address] [place] [address] [email or web address] Insurance Assigned Provider 05/16/21 09/12/21 documented as of this encounter Additional Source Comments The information contained in this document represents components of the legal health record. It is not the complete legal health record.[facility]
--- OUTSIDE RECORDS SUMMARY | 2025-09-04 18:23 | XMS_ITS | Encounter Summary ---
Author Organization [facility] Address [address] [facility] [address] [place] [address] Phone Care Team Providers Care Portfolio Architect Name Role Phone Paul Watt DO Primary Care Provider [phone] Paul Watt DO Unavailable Karlie Wright MD, MPH Primary Care Provid er Karlie Wright MD, MPH Primary Care Provid er Paul Watt DO Unavailable Karlie Wright MD, MPH Unavailable [phone] Pcp, Unknown Primary Care Provider Unavailabl e Ailyn Fishman MD Primary Care Provid er Encounter Details Date Type Department Care Team (Late st Contact Info) Description 02/20/2018 Procedure Pass [facility], Ct Scan - [address] [address] Social History Tobacco Use Types Packs/Day Years [...] on filedocumented in this encounter Care Teams Portfolio Architect Relationship Specialty Start Date End Date Paul Watt DO [address] [place] [address] [email or web address] PCP - General Family Medicine 11/10/17 08/11/18 Karlie Wright MD, MPH [address] [place] [address] [email or web address] PCP - General Family Medicine 08/12/18 09/10/18 Karlie Wright MD, MPH [address] [place] [address] [email or web address] PCP - General Family Medicine 09/11/18 06/21/21 Pcp, Unknown PCP - General 06/22/21 12/10/23 Ailyn Fishman MD [address] [place] [address] PCP - General Internal Medicine 12/11/23 Paul Watt DO [address] [place] [address] [email or web address] Insurance Assigned Provider 02/04/18 08/12/18 Paul Watt DO [address] [place] [address] [email or web address] Insurance Assigned Provider 04/08/19 06/12/20 Karlie Wright MD, MPH [address] [address] [email or web address] Insurance Assigned Provider 05/16/21 09/12/21 documented as of this encounter Additional Source Comments The information contained in this document represents components of the legal health record. It is not the complete legal health record.[facility]
--- OUTSIDE RECORDS SUMMARY | 2025-09-04 18:23 | XMS_ITS | Encounter Summary ---
Author Organization [facility] Address [address] [facility] [address] [place] [address] Phone Care Team Providers Care Internal Corrosion Specialist Name Role Phone Paul Watt DO Primary Care Provider [phone] Paul Watt DO Unavailable Karlie Wright MD, MPH Primary Care Provid er Karlie Wright MD, MPH Primary Care Provid er Paul Watt DO Unavailable Karlie Wright MD, MPH Unavailable [phone] Pcp, Unknown Primary Care Provider Unavailabl e Ailyn Fishman MD Primary Care Provid er Encounter Details Date Type Department Care Team (Late st Contact Info) Description 02/14/2018 Transcribe Orders [facility] [address] [place] [address] Paul Watt DO [address] [facility] [place] [address] Social History Tobacco Use Types Packs/Day Years [...] on filedocumented in this encounter Care Teams Internal Corrosion Specialist Relationship Specialty Start Date End Date Paul Watt DO [address] [place] [address] [email or web address] PCP - General Family Medicine 11/10/17 08/11/18 Karlie Wright MD, MPH [address] [place] [address] [email or web address] PCP - General Family Medicine 08/12/18 09/10/18 Karlie Wright MD, MPH [address] [place] [address] [email or web address] PCP - General Family Medicine 09/11/18 06/21/21 Pcp, Unknown PCP - General 06/22/21 12/10/23 Ailyn Fishman MD [address] [place] [address] PCP - General Internal Medicine 12/11/23 Paul Watt DO [address] [place] [address] [email or web address] Insurance Assigned Provider 02/04/18 08/12/18 Paul Watt DO [address] [place] [address] [email or web address] Insurance Assigned Provider 04/08/19 06/12/20 Karlie Wright MD, MPH [address] [place] [address] [email or web address] Insurance Assigned Provider 05/16/21 09/12/21 documented as of this encounter Additional Source Comments The information contained in this document represents components of the legal health record. It is not the complete legal health record.[facility]
== END 2025-09-04 16:08 | disposition home or self-care (01) ==
LOC: HO.HPODS 14:15
PROVIDERS: PCP Internal Medicine; Visit Provider Student in an Organized Health Care Education/Training Program
DX: S99.921A Unspecified injury of right foot, initial encounter (principal); L60.9 Nail disorder, unspecified; S90.211A Contusion of right great toe with damage to nail, initial encounter; L03.031 Cellulitis of right toe
CPT/HCPCS: 11730; 99204

== ENCOUNTER 2025-09-18 09:51 | Outpatient (AMB) | payer OTHER, SELFPAY ==
[2025-09-18 10:00] VITALS: BMI 32.5
--- NOTE | 2025-09-18 10:00 | MHC.OFFVIS ---
Vital Signs 09/18/25 10:00 Height 5 ft 9 in Weight 220 lb BMI 32.5 Intake Visit Reasons: f/u S/P right hallux TNA Intake Note: Katlyn is a 50 year old female who presents today for a follow up status post right hallux total nail avulsion. At her last visit she was advised to continue Keflex as prescribed to manage infection risk and to avoid tight fitting shoes. She was also advised to avoid barefoot walking and to wear supportive shoe gear. A right hallux total nail avulsion was performed as well as collecting a wound culture for microbiology. Patient states her recovery is going well and she has no questions or concerns at this time. Allergies shrimp (SHRIMP) Allergy (Severe, Verified 09/18/25 10:01) Anaphylaxis adhesive Allergy (Intermediate, Verified 09/18/25 10:01) Rash latex (LATEX) Allergy (Intermediate, Verified 09/18/25 10:01) RASH Penicillins Allergy (Intermediate, Verified 09/18/25 10:01) Itching Sulfa (Sulfonamide Antibiotics) (SULFA (SULFONAMIDE ANTIBIOTICS)) Allergy (Intermediate, Verified 09/18/25 10:01) HIVES levofloxacin (From LEVAQUIN) Adverse Reaction (Severe, Verified 09/18/25 10:01) AGITATION morphine (MORPHINE) Adverse Reaction (Severe, Verified 09/18/25 10:01) HEADACHES HPI Comments Details: The patient is a 50-year-old female presenting for a follow up S/P right hallux TNA. The patient completed a course of Keflex, and cultures returned negative for infection. The patient reports mild tenderness upon pressure, but no significant pain in other areas of the foot. She states she adhered to the after care instructions. She denies any purulence, drainage, or bleeding from the site. She denies any new pedal injuries. Denies any other pedal concerns. [facility] Medical History (Updated 09/07/25 @ 13:13 by Lyndsey Rodgers DPM) Cellulitis of great toe Nail disorder Traumatic subungual ecchymosis of right great toe Injury of right great toe Personal history of colon cancer Family history of breast cancer Physical exam Sinus infection Ovarian cyst GERD (gastroesophageal reflux disease) IUD (intrauterine device) in place History of blood transfusion Medullary sponge kidney Asthma History of seizure Seasonal allergies RADHA (obstructive sleep apnea) History of chemotherapy (~2012) Hx of radiation therapy (~2012) Recent bereavement Left arm pain Neck pain Retrognathia Vaginal discharge Rash Subconjunctival hemorrhage of left eye Upper respiratory tract infection Hemorrhoids with complication Myalgia Right wrist pain Right shoulder pain Screen for STD (sexually transmitted disease) Retained tampon COVID-19 Conjunctivitis Well woman exam Breast pain Shortness of breath PVC (premature ventricular contraction) PAC (premature atrial contraction) Colon cancer (~2012) DVT (deep venous thrombosis) Heart palpitations Shortness of breath Surgical History History of kidney surgery Hx of colonoscopy History of esophagogastroduodenoscopy (EGD) H/O knee surgery History of colon surgery Family History Mother High blood pressure COPD (chronic obstructive pulmonary disease) History of four vessel coronary artery bypass graft Mental health disorder Father High blood pressure Cancer Maternal Grandfather Colon cancer Paternal Aunt Colon cancer Social History Housing: House Are you a primary associate director career services to a significant other at home: No Do you presently have visiting nurse or other home services: No Alcohol intake: current Alcohol intake frequency: a few times a month Alcohol type: wine Patient Tobacco Use Status: Former Tobacco user Tobacco use type: Smokeless Tobacco e-Cigarette/Vaping Use: Currently Using Second Hand Smoke Exposure: Yes service: No Current occupational status: employed 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 Current occupational exposures/hazards: No Cognitive needs: No Hearing needs: No Vision needs: No Female Reproductive History Menstrual Age of Menarche: 10 Review of Systems Const Details: - Musculoskeletal: S/P Right hallux TNA with signs of healing. All systems reviewed & are unremarkable except as noted in HPI and below Physical Exam Vital Signs: BMI result Body Mass Index 32.5 Extrem Other: RLE Focused Physical Exam: Derm: Right hallux TNA site noted to be healing well without signs of infection or a wound. Minimal edema noted. No active bleeding, purulence, or drainage noted. No open lesions, abrasions, or wounds noted. Vasc: DP/PT pulses palpable. CFT < 3 secs. Temp gradient warm to warm. Pedal hair absent. No varicosities noted. Neuro: Protective sensations grossly intact. MSK: Mild tenderness on palpation to the proximal aspect of the hallux. ROM of the forefoot WNL with reduced mobility to the hallux. ROM of the hindfoot and ankle WNL. No crepitus or fluctuance noted. Nonantalgic gait unassisted noted. Results Reviewed Results Reviewed: Microbiology of right hallux results: Gram stain: 4+ red blood cells ; Routine culture: 1+ mixed skin bernie. Podiatry Read of Right toe xrays (09/02/25): Detached nail noted. No acute fractures or dislocations noted. Arthritic changes noted to the distal phalanx of the hallux. Right toe xrays (09/02/25): FINDINGS: First toe: Soft tissue swelling. Soft tissue irregularity in the dorsal distal toe, could reflect a soft tissue wound. No visible acute fracture or dislocation. First IP and first MTP joint space is maintained. No acute fracture is otherwise seen. No radiopaque foreign body. IMPRESSION: First toe: No visible acute fracture or dislocation. Soft tissue swelling, question soft tissue wound, clinically correlate. Assessment & Plan Assessment & Plan (1) Injury of right great toe: Code(s): S99.921A - Unspecified injury of right foot, initial encounter Category: Medical Qualifiers: Encounter type: initial encounter Qualified Code(s): S99.921A - Unspecified injury of right foot, initial encounter (2) Nail disorder: Code(s): L60.9 - Nail disorder, unspecified Category: Medical (3) Traumatic subungual ecchymosis of right great toe: Code(s): S90.211A - Contusion of right great toe with damage to nail, initial encounter Category: Medical (4) Cellulitis of great toe: Code(s): L03.039 - Cellulitis of unspecified toe Category: Medical Qualifiers: Laterality: right Qualified Code(s): L03.031 - Cellulitis of right toe Plan Patient was informed and verbally consented to the use of an ambient scribe for clinic note documentation during this visit. I discussed with the patient the management of her right hallux TNA site, emphasizing the importance of soaking the foot in epsom salt and warm water when irritation occurs and avoiding tight shoes. We reviewed the negative culture results, confirming the absence of infection and the effectiveness of the antibiotics. I advised her on nail care to prevent future detachment and encouraged her to contact us if any issues arise. - Continue soaking the affected foot in Epsom salt or warm water for the rest of the week. No longer need to apply Neosporin or a bandaid to the site. - Avoid tight footwear to prevent recurrence of the ingrown toenail. - Monitor nail growth and trim any loose parts to prevent detachment. - Advised patient to avoid barefoot walking and to wear supportive shoe gear. RTC PRN. Coding Level of Care Code Est Pt Level 3 (17649) Diagnoses Injury of right great toe, initial encounter S99.921A Encounter type: initial encounter Nail disorder L60.9 Traumatic subungual ecchymosis of right great toe S90.211A Cellulitis of great toe of right foot L03.031 Laterality: right Time Spent (min) 22
--- OUTSIDE RECORDS SUMMARY | 2025-09-18 11:20 | XMS_ITS | Encounter Summary ---
Author Organization [facility] Address [address] [facility] [address] [place] [address] Phone Care Team Providers Care Career Guidance Technician Name Role Phone Paul Watt DO Primary Care Provider [phone] Paul Watt DO Unavailable Karlie Wright MD, MPH Primary Care Provid er Karlie Wright MD, MPH Primary Care Provid er Paul Watt DO Unavailable Karlie Wright MD, MPH Unavailable [phone] Pcp, Unknown Primary Care Provider Unavailabl e Ailyn Fishman MD Primary Care Provid er Encounter Details Date Type Department Care Team (Late st Contact Info) Description 04/17/2018 Procedure Pass [facility] Endoscopy Admitting Dept Virtual Department [address] [place] [address] Social History Tobacco Use Types Packs/Day Years [...] on filedocumented in this encounter Care Teams Career Guidance Technician Relationship Specialty Start Date End Date Paul Watt DO [address] [place] [address] [email or web address] PCP - General Family Medicine 11/10/17 08/11/18 Karlie Wright MD, MPH [address] [place] [address] [email or web address] PCP - General Family Medicine 08/12/18 09/10/18 Karlie Wright MD, MPH [address] [place] [address] [email or web address] PCP - General Family Medicine 09/11/18 06/21/21 Pcp, Unknown PCP - General 06/22/21 12/10/23 Ailyn Fishman MD [address] [place] [address] PCP - General Internal Medicine 12/11/23 Paul Watt DO [address] [place] [address] [email or web address] Insurance Assigned Provider 02/04/18 08/12/18 Paul Watt DO [address] [place] [address] Insurance Assigned Provider 04/08/19 06/12/20 Karlie Wright MD, MPH [address] [address] [email or web address] Insurance Assigned Provider 05/16/21 09/12/21 documented as of this encounter Additional Source Comments The information contained in this document represents components of the legal health record. It is not the complete legal health record.[facility]
--- OUTSIDE RECORDS SUMMARY | 2025-09-18 11:20 | XMS_ITS | Encounter Summary ---
Author Organization [facility] Address [address] [facility] [address] [place] [address] Phone Care Team Providers Care Account Manager Trainee Name Role Phone Paul Watt DO Primary Care Provider [phone] Paul Watt DO Unavailable Karlie Wright MD, MPH Primary Care Provid er Karlie Wright MD, MPH Primary Care Provid er Paul Watt DO Unavailable Karlie Wright MD, MPH Unavailable [phone] Pcp, Unknown Primary Care Provider Unavailabl e Ailyn Fishman MD Primary Care Provid er Encounter Details Date Type Department Care Team (Late st Contact Info) Description 02/20/2018 Procedure Pass [facility], Ct Scan - [address] [address] Social History Tobacco Use Types Packs/Day Years [...] on filedocumented in this encounter Care Teams Account Manager Trainee Relationship Specialty Start Date End Date Paul Watt DO [address] [place] [address] [email or web address] PCP - General Family Medicine 11/10/17 08/11/18 Karlie Wright MD, MPH [address] [place] [address] [email or web address] PCP - General Family Medicine 08/12/18 09/10/18 Karlie Wright MD, MPH [address] [place] [address] [email or web address] PCP - General Family Medicine 09/11/18 06/21/21 Pcp, Unknown PCP - General 06/22/21 12/10/23 Ailyn Fishman MD [address] [place] [address] PCP - General Internal Medicine 12/11/23 Paul Watt DO [address] [place] [address] [email or web address] Insurance Assigned Provider 02/04/18 08/12/18 Paul Watt DO [address] [place] [address] [email or web address] Insurance Assigned Provider 04/08/19 06/12/20 Karlie Wright MD, MPH [address] [address] [email or web address] Insurance Assigned Provider 05/16/21 09/12/21 documented as of this encounter Additional Source Comments The information contained in this document represents components of the legal health record. It is not the complete legal health record.[facility]
--- OUTSIDE RECORDS SUMMARY | 2025-09-18 11:20 | XMS_ITS | Data Portability ---
Author Organization [facility] Address [address] [place] [phone] Care Team Providers Care Catalog Library Assistant Name Role Phone LAISHA MICHAEL Primary Care Provider [phone] Assessment No assessment recorded. Plan of Treatment Reminders Order Date Submit Date Provider Last Modified By Organization Details Last Modified Time Details Appointments None recorded. Lab None recorded. Referral None recorded. Procedures None recorded. Surgeries None recorded. Imaging None recorded. Medication Orders clobetasol 0.05 % topical ointment 2023 024 [id number], [address] [place], [address], 16:28:28 Patient TargetsNo targets recorded. Patient Instructions Encounter Date Encounter Id Patient Instructions Last Modified By Organization Details Last Modified Time 10/18/2024 [id number] dermatitis: care instructions [email or web address] Not available 10/18/2024 16:28:26 Reason for Referral None Reported. Problems Name Problem SNOMED Code Status Onset Date Resolution Date Notes Provider Name and Address Organization Details Recorded Time Depressiv e disorder 18834862 Active [facility] Bullock [facility] 16:18:56 Malignant neoplasm of colon 200430405 Completed 202310/18/2024 Removal Reason: surgery CON[facility] Keane [facility] [place], [address] , [facility] Dumont [facility] 16:27:43 Problem Notes None recorded. Medical Equipment None Reported. Allergies Allergen ID Allergen Name Allergen Category Reaction Reaction Severity Criticality Documentation Date Start Date Code Code System Note Provider Name and Address Organization Details Recorded Time 1632426 Substance with sulfonami de structure and antibacte rial mechanism of action (substanc e) medicatio n hives Not available Not available 10/18/2024 84887 8003 SNOMED Ольга Olmedo null, [place] - [facility] 4 16:16:05 0910168 Augmentin medicatio n abdominal pain Not available Not available 10/18/2024 35559 2 RxNorm Ольга Olmedo null, [place] - [...] Updated DateTime 4 175.26 cm 29.5 kg/m2 82245.4 7 g 98 [degF] 18 /min 77 /min 98 % 98 % 138/92 mm[Hg] Ольга Honorio [place] - [facility] 16:22:06 Social History Question Answer Notes LastModified by [employer] Details LastModified Time Tobacco Smoking Status Current Every Day Smoker vape Ольга cooper [place] - [facility] 10/18/2024 16:20:08 Have You Had A Flu Shot This Season? Yes [email or web address] Information not available 10/18/2024 Have You Recently Traveled Abroad? No [email or web address] Information not available 10/18/2024 Sex: Unknown Functional Status Question Answer Note LastModified by [employer] Details LastModified Time How many times per week do you consume alcohol? 3-4 times per week [email or web address] Information not available 10/18/2024 Do you use any illicit or recreational drugs? No [email or web address] Information not available 10/18/2024 What is your level of alcohol consumption? Occasional [email or web address] Information not available 10/18/2024 Mental Status None recorded. Family History Relationship Description Onset Age of this Age Resolved Age Notes LastModified by Organization Details LastModified Time Father No current problems or disability [email or web address] Not available 10/18 16:19:00 Mother No current problems or disability [email or web address] Not available 10/18 16:19:00 Medical History No medical history recorded. Gynecological HistoryNo gynecological history recorded. Obstetrics History GPAL:G 0 P 0 0 0 0 Past Encounters Encounter ID Performer Location Encounter Start Date Encounter Closed Date Diagnosis/Indication Diagnosis SNOMED-CT Code Diagnosis ICD10 Code Diagnosis IMO Codes Diagnosis Note [id number] _[address] [place] [address] 10/10/2020 16:22:23 10/10/2020 18:18:23 [id number] [facility] [address] [facility] SHRUTHI Billings[place] [address] 10/18/2024 16:09:58 10/18/2024 16:29:23 Contact dermatitis 01932342 L25.9 Based on your presentati on and [...] Name 10/18/2024 1 [employer] [place] [facility] [id number] Katlyn Shaikh [id number] Katlyn Shaikh Notes Date Note Type Note Provider Name and Address Organization Details Recorded Time 10/18/2024 text/html 49 y/o female here with several red, irritated spots on her belly button, upper back, and L leg. Has happened in the past, wants to make sure it isn't ringworm CONRAD Keane [address], [place], [address], [place] - [facility] 10/18/2024 16:31:25 OBGyn Episode No OBEpisode recorded.
--- OUTSIDE RECORDS SUMMARY | 2025-09-18 11:20 | XMS_ITS | Encounter Summary ---
Author Organization [facility] Address [address] [facility] [address] [place] [address] Phone Care Team Providers Care Self Defense Instructor Name Role Phone Paul Watt DO Primary Care Provider [phone] Paul Watt DO Unavailable Kralie Wright MD, MPH Primary Care Provid er Karlie Wright MD, MPH Primary Care Provid er Paul Watt DO Unavailable Karlie Wright MD, MPH Unavailable [phone] Pcp, Unknown Primary Care Provider Unavailabl e Ailyn Fishman MD Primary Care Provid er Encounter Details Date Type Department Care Team (Late st Contact Info) Description 02/20/2018 Procedure Pass [facility], Ct Scan - [address] [address] Social History Tobacco Use Types Packs/Day Years [...] on filedocumented in this encounter Care Teams Self Defense Instructor Relationship Specialty Start Date End Date Paul Watt DO [address] [place] [address] [email or web address] PCP - General Family Medicine 11/10/17 08/11/18 Karlie Wright MD, MPH [address] [place] [address] [email or web address] PCP - General Family Medicine 08/12/18 09/10/18 Karlie Wright MD, MPH [address] [place] [address] [email or web address] PCP - General Family Medicine 09/11/18 06/21/21 Pcp, Unknown PCP - General 06/22/21 12/10/23 Ailyn Fishman MD [address] [place] [address] PCP - General Internal Medicine 12/11/23 Paul Watt DO [address] [place] [address] [email or web address] Insurance Assigned Provider 02/04/18 08/12/18 Paul Watt DO [address] [place] [address] [email or web address] Insurance Assigned Provider 04/08/19 06/12/20 Karlie Wright MD, MPH [address] [address] [email or web address] Insurance Assigned Provider 05/16/21 09/12/21 documented as of this encounter Additional Source Comments The information contained in this document represents components of the legal health record. It is not the complete legal health record.[facility]
--- OUTSIDE RECORDS SUMMARY | 2025-09-18 11:20 | XMS_ITS | Encounter Summary ---
Author Organization [facility] Address [address] [facility] [address] [place] [address] Phone Care Team Providers Care Subassembly Assembler Name Role Phone Paul Watt DO Primary Care Provider [phone] Paul Watt DO Unavailable Karlie Wright MD, MPH Primary Care Provid er Karlie Wright MD, MPH Primary Care Provid er Paul Watt DO Unavailable Karlie Wright MD, MPH Unavailable [phone] Pcp, Unknown Primary Care Provider Unavailabl e Ailyn Fishman MD Primary Care Provid er Encounter Details Date Type Department Care Team (Late st Contact Info) Description 02/14/2018 Transcribe Orders [address] [address] Paul Watt DO [address] [place] [address] [place] [address] [email or web address] Social History Tobacco Use Types Packs/Day Years [...] on filedocumented in this encounter Care Teams Subassembly Assembler Relationship Specialty Start Date End Date Paul Watt DO [address] [place] [address] [email or web address] PCP - General Family Medicine 11/10/17 08/11/18 Karlie Wright MD, MPH [address] [place] [address] [email or web address] PCP - General Family Medicine 08/12/18 09/10/18 Karlie Wright MD, MPH [address] [place] [address] [email or web address] PCP - General Family Medicine 09/11/18 06/21/21 Pcp, Unknown PCP - General 06/22/21 12/10/23 Ailyn Fishman MD [address] [place] [address] PCP - General Internal Medicine 12/11/23 Paul Watt DO [address] [place] [address] [email or web address] Insurance Assigned Provider 02/04/18 08/12/18 Paul Watt DO [address] [place] [address] [email or web address] Insurance Assigned Provider 04/08/19 06/12/20 Karlie Wright MD, MPH [address] [place] [address] [email or web address] Insurance Assigned Provider 05/16/21 09/12/21 documented as of this encounter Additional Source Comments The information contained in this document represents components of the legal health record. It is not the complete legal health record.[facility]
--- OUTSIDE RECORDS SUMMARY | 2025-09-18 11:20 | XMS_ITS | Encounter Summary ---
Author Organization [facility] Address [address] [address] Phone Care Team Providers Care Design Project Manager Name Role Phone Paul Watt DO Primary Care Provider [phone] Paul Watt DO Unavailable Karlie Wright MD, MPH Primary Care Provid er Karlie Wright MD, MPH Primary Care Provid er Paul Watt DO Unavailable Karlie Wright MD, MPH Unavailable [phone] Pcp, Unknown Primary Care Provider Unavailabl e Ailyn Fishman MD Primary Care Provid er Encounter Details Date Type Department Care Team (Late st Contact Info) Description 02/22/2018 Transcribe Orders [address] [address] Debra Forte, [facility] 29 [facility] Family [place] [address] [email or web address] Abdominal pain, unspecified abdominal location (Primary Dx) [...] EDT) Specimen Source/ Description STOOL STOOL STOOL [facility] Special Requests None [facility] DIRECT EXAM No parasites found by Trichrome Stain [facility] DIRECT EXAM NO PARASITES FOUND BY DIRECT OR CONCENTRATION METHODS [facility] Report Status 03/02/2018 FINAL [facility] Stool (Stool) 02/21/2018 9:0 0 AM EDT 02/22/2018 11:42 AM EDT us Debra Forte CNP LAB BODY FLUIDS AND S TOOL ORDERABLES Final Result Performing Organization Address City/[facility] Co de Phone Number [address] [address] * Ova and parasites, stool (02/17/2018 6:00 PM EDT) Specimen Source/ Description STOOL STOOL STOOL [facility] Special Requests None [facility] DIRECT EXAM No parasites found by Trichrome Stain [facility] DIRECT EXAM NO PARASITES FOUND BY DIRECT OR CONCENTRATION METHODS [facility] Report Status 03/02/2018 FINAL [facility] Stool (Stool) 02/17/2018 6:0 0 PM EDT 02/22/2018 11:41 AM EDT us Debra oFrte CNP LAB BODY FLUIDS AND S TOOL ORDERABLES Final Result Performing Organization Address City/[facility] Co de Phone Number [address] [address] documented in this encounter Visit Diagnoses Diagnosis Abdominal pain, unspecified abdominal location- Primary documented in this encounter Care Teams Design Project Manager Relationship Specialty Start Date End Date Paul Watt DO [address] [place] [address] [email or web address] PCP - General Family Medicine 11/10/17 08/11/18 Karlie Wright MD, MPH [address] [place] [address] [email or web address] PCP - General Family Medicine 08/12/18 09/10/18 Karlie Wright MD, MPH [address] [place] [address] [email or web address] PCP - General Family Medicine 09/11/18 06/21/21 Pcp, Unknown PCP - General 06/22/21 12/10/23 Ailyn Fishman MD [address] [place] [address] PCP - General Internal Medicine 12/11/23 Paul Watt DO [address] [place] [address] [email or web address] Insurance Assigned Provider 02/04/18 08/12/18 Paul Watt DO [address] [place] [address] [email or web address] Insurance Assigned Provider 04/08/19 06/12/20 Karlie Wright MD, MPH [address] [place] [address] [email or web address] Insurance Assigned Provider 05/16/21 09/12/21 documented as of this encounter Additional Source Comments The information contained in this document represents components of the legal health record. It is not the complete legal health record.[facility]
--- OUTSIDE RECORDS SUMMARY | 2025-09-18 11:21 | XMS_ITS | Clinical Summary ---
Author Organization [facility] Address [address] [address] Phone Care Team Providers Care Barrel Rifler Broach Name Role Phone Ailyn Fishman MD Primary [...] on patient's age to complete this topic IPV VACCINES Aged Out No longer eligi ble [...] 43 Admit Type: Outpatient Gender: Female Room: [place] [address] Referring MD: PAUL WATT MD Exam Type: [...] 12:14 PM Procedure Code(s): --- Professional --- 47500, Colonoscopy, flexible; with biopsy, single or multiple --- Technical --- 12726, Colonoscopy, flexible; with biopsy, single or multiple Diagnosis Code(s): --- Professional --- Z85.038, Personal history of other malignant neoplasm of largeintestine Z98.0, Intestinal bypass 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 All rights reserved. The codes documented in this report are preliminary and upon brand marketing manager reviewmay be revised to meet current compliance requirements. [address] [place] [address] us Paulaayush Watt DO GI PROCEDURE ORDERABLES Final Re sult from Last 3 Months or Most Recently Relevant to Health Maintenance Insurance [facility] [employer] [facility] [employer] [address] [address] [address] [place] [address] [place] [address] [facility] [employer] [address] [place] [address] [place] [address] [employer] [place] [employer] [facility] [employer] [address] [place] [address] [facility] [employer] Care Teams Barrel Rifler Broach Relationship Specialty Start Date End Date Ailyn Fishman MD [address] [place] [address] PCP - General Internal Medicine 12/11/23 Additional Source Comments The information contained in this document represents components of the legal health record. It is not the complete legal health record.[facility]
--- OUTSIDE RECORDS SUMMARY | 2025-09-18 11:21 | XMS_ITS | Patient Health Record ---
Author Organization [facility] Address [address] [place] [address] Care Team Providers Care Profiling Machine Set Up Operator Name Role Phone Holly SMITH, Ailyn Primary Care Provider Unavail able Migdalia Luis Unavailable [phone] Allergies Allergen (clinical drug ingredient) Drug/Non Drug [...] 4-5 times per day for 2 years Encounters Encounter Location Date Provider Diagnosis [facility] [place] [address] [place] [address] 09/11/2025 Migdalia Luis Plan Of Treatment Pending Test Test Name Order Date *Liver Function Test (LFT) 06/02/2021 *Liver Function Test (LFT) 07/01/2021 X ray : Foot, right 3V 06/02/2021 Insurance Providers Payer Name Payer Address Payer Phone Subscriber Number Group Number Insured Name Patient Relationship to Insured Coverage Start Date Coverage End Date Blue Benefits [address] [address] [place] [address] [id number] Katlyn Shaikh Self - patient is the insured Medical (General) History Medical History History ICD Code Anemia asthma Cancer Kidney disease Numbness Neuropathy Sciatica Chicken pox Joint implants/screws Transfusions Surgical History Surgery Date(Month/Year) knee surgery, left / complication: blood clot/DVT 2006 colon cancer 2013 portacath placement 2012 Ingrown Toe Nail 2000
--- OUTSIDE RECORDS SUMMARY | 2025-09-18 11:21 | XMS_ITS | Encounter Summary ---
Author Organization [facility] Address [address] [facility] [address] [place] [address] Phone Care Team Providers Care Emergency Room Rn Name Role Phone Paul Watt DO Primary Care Provider [phone] Paul Watt DO Unavailable Karlie Wright MD, MPH Primary Care Provid er Karlie Wright MD, MPH Primary Care Provid er Paul Watt DO Unavailable Karlie Wright MD, MPH Unavailable [phone] Pcp, Unknown Primary Care Provider Unavailabl e Ailyn Fishman MD Primary Care Provid er Encounter Details Date Type Department Care Team (Latest Contact Info) Description 01/20/2018 Ancillary Orders Virtual Department [address] [place] [address] Taras Rivers MD [address] [place] [address] [address] [address] [email or web address] 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) documented in this encounter Care Teams Emergency Room Rn Relationship Specialty Start Date End Date Paul Watt DO [address] [place] [address] [email or web address] PCP - General Family Medicine 11/10/17 08/11/18 Karlie Wright MD, MPH [address] [place] [address] [email or web address] PCP - General Family Medicine 08/12/18 09/10/18 Karlie Wright MD, MPH [address] [place] [address] [email or web address] PCP - General Family Medicine 09/11/18 06/21/21 Pcp, Unknown PCP - General 06/22/21 12/10/23 Ailyn Fishman MD [address] [place] [address] PCP - General Internal Medicine 12/11/23 Paul Watt DO [address] [place] [address] [email or web address] Insurance Assigned Provider 02/04/18 08/12/18 Paul Watt DO [address] [place] [address] Insurance Assigned Provider 04/08/19 06/12/20 Karlie Wright MD, MPH [address] [place] [address] [email or web address] Insurance Assigned Provider 05/16/21 09/12/21 documented as of this encounter Additional Source Comments The information contained in this document represents components of the legal health record. It is not the complete legal health record.[facility]
--- OUTSIDE RECORDS SUMMARY | 2025-09-18 11:22 | XMS_ITS | Encounter Summary ---
Author Organization [facility] Address 399 [facility] [address] [place] [address] Phone Care Team Providers Care Finance Mgr Name Role Phone Paul Watt DO Primary Care Provider [phone] Paul Watt DO Unavailable Karlie Wright MD, MPH Primary Care Provid er Karlie Wright MD, MPH Primary Care Provid er Paul Watt DO Unavailable Karlie Wright MD, MPH Unavailable [phone] Pcp, Unknown Primary Care Provider Unavailabl e Ailyn Fishman MD Primary Care Provid er Encounter Details Date Type Department Care Team (Late st Contact Info) Description 07/03/2018 Ancillary Orders Virtual Department [address] [place] [address] Willie Strong MD [address] [place] [address], [address] [address] [email or web address] Calculus of kidney Social History Tobacco Use [...] kidney documented in this encounter Care Teams Finance Mgr Relationship Specialty Start Date End Date Paul Watt DO [address] [place] [address] [email or web address] PCP - General Family Medicine 11/10/17 08/11/18 Karlie Wright MD, MPH [address] [place] [address] [email or web address] PCP - General Family Medicine 08/12/18 09/10/18 Karlie Wright MD, MPH [address] [place] [address] [email or web address] PCP - General Family Medicine 09/11/18 06/21/21 Pcp, Unknown PCP - General 06/22/21 12/10/23 Ailyn Fishman MD [address] [place] [address] PCP - General Internal Medicine 12/11/23 Paul Watt DO [address] [place] [address] [email or web address] Insurance Assigned Provider 02/04/18 08/12/18 Paul Watt DO [address] [place] [address] [email or web address] Insurance Assigned Provider 04/08/19 06/12/20 Karlie Wright MD, MPH [address] [place], [place] [phone] [email or web address] Insurance Assigned Provider 05/16/21 09/12/21 documented as of this encounter Additional Source Comments The information contained in this document represents components of the legal health record. It is not the complete legal health record.[facility]
== END 2025-09-18 10:24 | disposition home or self-care (01) ==
LOC: HO.HPODS 09:52
PROVIDERS: PCP Internal Medicine; Visit Provider Student in an Organized Health Care Education/Training Program
DX: S99.921A Unspecified injury of right foot, initial encounter (principal); L60.9 Nail disorder, unspecified; S90.211A Contusion of right great toe with damage to nail, initial encounter; L03.031 Cellulitis of right toe
CPT/HCPCS: 99213

== ENCOUNTER 2025-10-07 09:38 | Outpatient (REF) | payer OTHER, SELFPAY ==
--- NOTE | ~2025-10-07 | XR_ITS ---
EXAMINATION: XR KNEE, LEFT CLINICAL INFORMATION: M25.562 - Pain in left knee COMPARISON: None available. TECHNIQUE: Bilateral knees one view. Left knee 2 views.. FINDINGS: Left knee: Evidence of prior repair surgery. Redemonstrated hardware in the anterior aspect of the proximal tibia, which appears intact. Mild medial compartment joint space narrowing. Tiny lateral compartment marginal spurring. Question mild medial patellofemoral joint space narrowing. No acute fracture or dislocation. No suprapatellar joint fluid. Right knee: No acute findings XR/XR knee LT 3V IMPRESSION: Left knee: Mild arthritis as above. No acute findings. Electronically signed by: Valdo Guzman MD 10/08/2025 03:02 PM DEBOR[facility]
--- OUTSIDE RECORDS SUMMARY | 2025-10-10 11:01 | XMS_ITS | Encounter Summary ---
Author Organization [facility] Address [address] [facility] [address] [place] [address] Phone Care Team Providers Care Shuttler Car Name Role Phone Paul Watt DO Primary Care Provider [phone] Paul Watt DO Unavailable Karlie Wright MD, MPH Primary Care Provid er Karlie Wright MD, MPH Primary Care Provid er Paul Watt DO Unavailable Karlie Wright MD, MPH Unavailable [phone] Pcp, Unknown Primary Care Provider Unavailabl e Ailyn Fishman MD Primary Care Provid er Encounter Details Date Type Department Care Team (Late st Contact Info) Description 02/14/2018 Transcribe Orders [address] [address] Paul Watt DO [address] [place] [address] [place] [address] [email or web address] Social History Tobacco Use Types Packs/Day Years [...] on filedocumented in this encounter Care Teams Shuttler Car Relationship Specialty Start Date End Date Paul Watt DO [address] [place] [address] [email or web address] PCP - General Family Medicine 11/10/17 08/11/18 Karlie Wright MD, MPH [address] [place] [address] [email or web address] PCP - General Family Medicine 08/12/18 09/10/18 Karlie Wright MD, MPH [address] [place] [address] [email or web address] PCP - General Family Medicine 09/11/18 06/21/21 Pcp, Unknown PCP - General 06/22/21 12/10/23 Ailyn Fishman MD [address] [place] [address] PCP - General Internal Medicine 12/11/23 Paul Watt DO [address] [place] [address] [email or web address] Insurance Assigned Provider 02/04/18 08/12/18 Paul Watt DO [address] [place] [address] [email or web address] Insurance Assigned Provider 04/08/19 06/12/20 Karlie Wright MD, MPH [address] [place] [address] [email or web address] Insurance Assigned Provider 05/16/21 09/12/21 documented as of this encounter Additional Source Comments The information contained in this document represents components of the legal health record. It is not the complete legal health record.[facility]
--- OUTSIDE RECORDS SUMMARY | 2025-10-10 11:01 | XMS_ITS | Encounter Summary ---
Author Organization [facility] Address [address] [facility] [address] [place] [address] Phone Care Team Providers Care Coil Winder Repair Name Role Phone Paul Watt DO Primary Care Provider [phone] Paul Watt DO Unavailable Karlie Wright MD, MPH Primary Care Provid er Karlie Wright MD, MPH Primary Care Provid er Paul Watt DO Unavailable Karlie Wright MD, MPH Unavailable [phone] Pcp, Unknown Primary Care Provider Unavailabl e Ailyn Fishman MD Primary Care Provid er Encounter Details Date Type Department Care Team (Late st Contact Info) Description 02/20/2018 Procedure Pass [facility], Ct Scan - [address] [address] Social History Tobacco Use Types Packs/Day Years [...] on filedocumented in this encounter Care Teams Coil Winder Repair Relationship Specialty Start Date End Date Paul Watt DO [address] [place] [address] [email or web address] PCP - General Family Medicine 11/10/17 08/11/18 Karlie Wright MD, MPH [address] [place] [address] [email or web address] PCP - General Family Medicine 08/12/18 09/10/18 Karlie Wright MD, MPH [address] [place] [address] [email or web address] PCP - General Family Medicine 09/11/18 06/21/21 Pcp, Unknown PCP - General 06/22/21 12/10/23 Ailyn Fishman MD [address] [place] [address] PCP - General Internal Medicine 12/11/23 Paul Watt DO [address] [place] [address] [email or web address] Insurance Assigned Provider 02/04/18 08/12/18 Paul Watt DO [address] [place] [address] [email or web address] Insurance Assigned Provider 04/08/19 06/12/20 Karlie Wright MD, MPH [address] [address] [email or web address] Insurance Assigned Provider 05/16/21 09/12/21 documented as of this encounter Additional Source Comments The information contained in this document represents components of the legal health record. It is not the complete legal health record.[facility]
--- OUTSIDE RECORDS SUMMARY | 2025-10-10 11:01 | XMS_ITS | Clinical Summary ---
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 All rights reserved. The codes documented in this report are preliminary and upon outside upholsterer reviewmay be revised to meet current compliance requirements. [address] [place] [address] us Paul Watt DO GI PROCEDURE ORDERABLES Final Re sult from Last 3 Months or Most Recently Relevant to Health Maintenance Insurance [facility] [employer] ADMINISTRATORS [facility] [employer]MINISTR[employer] [facility] [employer] ADMINISTR[place] [place] [address] [place] [address] BENEFITS ADMINISTRATORS [employer] ADMINISTRATORS [employer] Care Teams Quilter Fixer Relationship Specialty Start Date End Date Ailyn Fishman MD [address] [place] [address] PCP - General Internal Medicine 12/11/23 Additional Source Comments The information contained in this document represents components of the legal health record. It is not the complete legal health record.[facility]
--- OUTSIDE RECORDS SUMMARY | 2025-10-10 11:01 | XMS_ITS | Encounter Summary ---
Author Organization [facility] Address [address] [address] Phone Care Team Providers Care Banking Manager Name Role Phone Paul Watt DO Primary Care Provider [phone] Paul Watt DO Unavailable Karlie Wright MD, MPH Primary Care Provid er Karlie Wright MD, MPH Primary Care Provid er Paul Watt DO Unavailable Karlie Wright MD, MPH Unavailable [phone] Pcp, Unknown Primary Care Provider Unavailabl e Ailyn Fishman MD Primary Care Provid er Encounter Details Date Type Department Care Team (Late st Contact Info) Description 02/22/2018 Transcribe Orders [address] [address] Debra Forte, [facility] [address] [facility] [place] [address] Abdominal pain, unspecified abdominal location (Primary Dx) [...] EDT) Specimen Source/ Description STOOL STOOL STOOL [facility] Special Requests None [facility] DIRECT EXAM No parasites found by Trichrome Stain [facility] DIRECT EXAM NO PARASITES FOUND BY DIRECT OR CONCENTRATION METHODS [facility] Report Status 03/02/2018 FINAL [facility] Stool (Stool) 02/21/2018 9:0 0 AM EDT 02/22/2018 11:42 AM EDT us Debra Forte CNP LAB BODY FLUIDS AND S TOOL ORDERABLES Final Result Performing Organization Address City/[facility] Co de Phone Number [address] [address] * Ova and parasites, stool (02/17/2018 6:00 PM EDT) Specimen Source/ Description STOOL STOOL STOOL [facility] Special Requests None [facility] DIRECT EXAM No parasites found by Trichrome Stain [facility] DIRECT EXAM NO PARASITES FOUND BY DIRECT OR CONCENTRATION METHODS [facility] Report Status 03/02/2018 FINAL [facility] Stool (Stool) 02/17/2018 6:0 0 PM EDT 02/22/2018 11:41 AM EDT us Debra Forte CNP LAB BODY FLUIDS AND S TOOL ORDERABLES Final Result Performing Organization Address City/[facility] Co de Phone Number [address] [address] documented in this encounter Visit Diagnoses Diagnosis Abdominal pain, unspecified abdominal location- Primary documented in this encounter Care Teams Banking Manager Relationship Specialty Start Date End Date Paul Watt DO [address] [place] [address] [email or web address] PCP - General Family Medicine 11/10/17 08/11/18 Karlie Wright MD, MPH [address] [place] [address] [email or web address] PCP - General Family Medicine 08/12/18 09/10/18 Karlie Wright MD, MPH [address] [place] [address] [email or web address] PCP - General Family Medicine 09/11/18 06/21/21 Pcp, Unknown PCP - General 06/22/21 12/10/23 Ailyn Fishman MD [address] [place] [address] PCP - General Internal Medicine 12/11/23 Paul Watt DO [address] [place] [address] [email or web address] Insurance Assigned Provider 02/04/18 08/12/18 Paul Watt DO [address] [place] [address] [email or web address] Insurance Assigned Provider 04/08/19 06/12/20 Karlie Wright MD, MPH [address] [place] [address] [email or web address] Insurance Assigned Provider 05/16/21 09/12/21 documented as of this encounter Additional Source Comments The information contained in this document represents components of the legal health record. It is not the complete legal health record.[facility]
--- OUTSIDE RECORDS SUMMARY | 2025-10-10 11:01 | XMS_ITS | Encounter Summary ---
Author Organization [facility] Address [address] [facility] [address] [place] [address] Phone Care Team Providers Care Rn Imcu Name Role Phone Paul Watt DO Primary Care Provider [phone] Paul Watt DO Unavailable Karlie Wright MD, MPH Primary Care Provid er Karlie Wright MD, MPH Primary Care Provid er Paul Watt DO Unavailable Karlie Wright MD, MPH Unavailable [phone] Pcp, Unknown Primary Care Provider Unavailabl e Ailyn Fishman MD Primary Care Provid er Encounter Details Date Type Department Care Team (Late st Contact Info) Description 02/20/2018 Procedure Pass [facility], Ct Scan - [address] [address] Social History Tobacco Use Types Packs/Day Years [...] filedocumented in this encounter Care Teams Rn Imcu Relationship Specialty Start Date End Date Paul Watt DO [address] [place] [address] [email or web address] PCP - General Family Medicine 11/10/17 08/11/18 Karlie Wright MD, MPH [address] [place] [address] [email or web address] PCP - General Family Medicine 08/12/18 09/10/18 Karlie Wright MD, MPH [address] [place] [address] [email or web address] PCP - General Family Medicine 09/11/18 06/21/21 Pcp, Unknown PCP - General 06/22/21 12/10/23 Ailyn Fishman MD [address] [place] [address] PCP - General Internal Medicine 12/11/23 Paul Watt DO [address] [place] [address] [email or web address] Insurance Assigned Provider 02/04/18 08/12/18 Paul Watt DO [address] [place] [address] [email or web address] Insurance Assigned Provider 04/08/19 06/12/20 Karlie Wright MD, MPH [address] [address] [email or web address] Insurance Assigned Provider 05/16/21 09/12/21 documented as of this encounter Additional Source Comments The information contained in this document represents components of the legal health record. It is not the complete legal health record.[facility]
--- OUTSIDE RECORDS SUMMARY | 2025-10-10 11:01 | XMS_ITS | Data Portability ---
Author Organization [facility] Address [address] [place] [phone] Care Team Providers Care Side Panel Padder Name Role Phone LAISHA MICHAEL Primary Care Provider [phone] Assessment No assessment recorded. Plan of Treatment Reminders Order Date Submit Date Provider Last Modified By Organization Details Last Modified Time Details Appointments None recorded. Lab None recorded. Referral None recorded. Procedures None recorded. Surgeries None recorded. Imaging None recorded. Medication Orders clobetasol 0.05 % topical ointment 2023 024 [id number], [address] [place], [address], 16:28:28 Patient TargetsNo targets recorded. Patient Instructions Encounter Date Encounter Id Patient Instructions Last Modified By Organization Details Last Modified Time 10/18/2024 [id number] dermatitis: care instructions [email or web address] Not available 10/18/2024 16:28:26 Reason for Referral None Reported. Problems Name Problem SNOMED Code Status Onset Date Resolution Date Notes Provider Name and Address Organization Details Recorded Time Depressiv e disorder 95939231 Active [facility] Bullock [facility] 16:18:56 Malignant neoplasm of colon 907333660 Completed 202310/18/2024 Removal Reason: surgery CON[facility] Keane [facility] [place], [address] , [facility] Dumont [facility] 16:27:43 Problem Notes None recorded. Medical Equipment None Reported. Allergies Allergen ID Allergen Name Allergen Category Reaction Reaction Severity Criticality Documentation Date Start Date Code Code System Note Provider Name and Address Organization Details Recorded Time 6090070 Substance with sulfonami de structure and antibacte rial mechanism of action (substanc e) medicatio n hives Not available Not available 10/18/2024 11966 8003 SNOMED Ольга Olmedo null, [place] - [facility] 4 16:16:05 3276214 Augmentin medicatio n abdominal pain Not available Not available 10/18/2024 92715 2 RxNorm Ольга Olmedo null, [place] - [...] Last Updated DateTime 175.26 cm 29.5 kg/m2 70006.4 7 g 98 [degF] 18 /min 77 /min 98 % 138/92 mm[Hg] Ольга Honorio PA - [facility] 16:22:06 Social History Question Answer Notes LastModified by Kaymbu Details LastModified Time Tobacco Smoking Status Current Every Day Smoker vape Ольга cooper, [place] - [facility] 10/18/2024 16:20:08 Have You Had A Flu Shot This Season? Yes [email or web address] Information not available 10/18/2024 Have You Recently Traveled Abroad? No [email or web address] Information not available 10/18/2024 Sex: Unknown Functional Status Question Answer Note LastModified by Kaymbu Details LastModified Time How many times per week do you consume alcohol? 3-4 times per week [email or web address] Information not available 10/18/2024 Do you use any illicit or recreational drugs? No [email or web address] Information not available 10/18/2024 What is your level of alcohol consumption? Occasional [email or web address] Information not available 10/18/2024 Mental Status None recorded. Family History Relationship Description Onset Age of this Age Resolved Age Notes LastModified by Organization Details LastModified Time Father No current problems or disability Not available 10/18 16:19:00 Mother No current problems or disability [email or web address] Not available 10/18 16:19:00 Medical History No medical history recorded. Gynecological HistoryNo gynecological history recorded. Obstetrics History GPAL:G 0 P 0 0 0 0 Past Encounters Encounter ID Performer Location Encounter Start Date Encounter Closed Date Diagnosis/Indication Diagnosis SNOMED-CT Code Diagnosis ICD10 Code Diagnosis IMO Codes Diagnosis Note [id number] [address] [place] [address] 10/10/2020 16:22:23 10/10/2020 18:18:23 [id number] CONRAD Keane [address] [facility] [place] [address] 10/18/2024 16:09:58 10/18/2024 16:29:23 Contact dermatitis 77930785 L25.9 Based on your presentati on and [...] Name 10/18/2024 1 [employer] [place] ([facility]) [id number] Katlyn Shaikh [id number] 782 Katlyn Shaikh Notes Date Note Type Note Provider Name and Address Organization Details Recorded Time 10/18/2024 text/html 49 y/o female here with several red, irritated spots on her belly button, upper back, and L leg. Has happened in the past, wants to make sure it isn't ringworm CONRAD Keane [address] [place], [address], [place] - [facility] 10/18/2024 16:31:25 OBGyn Episode No OBEpisode recorded.
--- OUTSIDE RECORDS SUMMARY | 2025-10-10 11:01 | XMS_ITS | Encounter Summary ---
Author Organization [facility] Address [address] [facility] [address] [place] [address] Phone Care Team Providers Care Professor Of Counseling Name Role Phone Paul Watt DO Primary Care Provider [phone] Paul Watt DO Unavailable Karlie Wright MD, MPH Primary Care Provid er Kralie Wright MD, MPH Primary Care Provid er Paul Watt DO Unavailable Karlie Wright MD, MPH Unavailable [phone] Pcp, Unknown Primary Care Provider Unavailabl e Ailyn Fishman MD Primary Care Provid er Encounter Details Date Type Department Care Team (Latest Contact Info) Description 01/20/2018 Ancillary Orders Virtual Department [address] [place] [address] Taras Rivers MD [address] [place] [address] [address] [address] [email or web address] 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) [...] glomerulonephritis) documented in this encounter Care Teams Professor Of Counseling Relationship Specialty Start Date End Date Paul Watt DO [address] [place] [address] [email or web address] PCP - General Family Medicine 11/10/17 08/11/18 Karlie Wright MD, MPH [address] [place] [address] [email or web address] PCP - General Family Medicine 08/12/18 09/10/18 Karlie Wright MD, MPH [address] [place] [address] [email or web address] PCP - General Family Medicine 09/11/18 06/21/21 Pcp, Unknown PCP - General 06/22/21 12/10/23 Ailyn Fishman MD [address] [place] [address] PCP - General Internal Medicine 12/11/23 Paul Watt DO [address] [place] [address] [email or web address] Insurance Assigned Provider 02/04/18 08/12/18 Paul Watt DO [address] [place] [address] Insurance Assigned Provider 04/08/19 06/12/20 Karlie Wright MD, MPH [address] [place] [address] [email or web address] Insurance Assigned Provider 05/16/21 09/12/21 documented as of this encounter Additional Source Comments The information contained in this document represents components of the legal health record. It is not the complete legal health record.[facility]
--- OUTSIDE RECORDS SUMMARY | 2025-10-10 11:01 | XMS_ITS | Encounter Summary ---
Author Organization [facility] Address 399 [facility] [address] [place] [address] Phone Care Team Providers Care Materials Management Supervisor Name Role Phone Paul Watt DO Primary Care Provider [phone] Paul Watt DO Unavailable Karlie Wright MD, MPH Primary Care Provid er Karlie Wright MD, MPH Primary Care Provid er Paul Watt DO Unavailable Karlie Wright MD, MPH Unavailable [phone] Pcp, Unknown Primary Care Provider Unavailabl e Ailyn Fishman MD Primary Care Provid er Encounter Details Date Type Department Care Team (Late st Contact Info) Description 04/17/2018 Procedure Pass [facility] Endoscopy Admitting Dept Virtual Department [address] [place] [address] Social History Tobacco Use Types Packs/Day Years [...] on filedocumented in this encounter Care Teams Materials Management Supervisor Relationship Specialty Start Date End Date Paul Watt DO [address] [place] [address] [email or web address] PCP - General Family Medicine 11/10/17 08/11/18 Karlie Wright MD, MPH [address] [place] [address] [email or web address] PCP - General Family Medicine 08/12/18 09/10/18 Karlie Wright MD, MPH [address] [place] [address] [email or web address] PCP - General Family Medicine 09/11/18 06/21/21 Pcp, Unknown PCP - General 06/22/21 12/10/23 Ailyn Fishman MD [address] [place] [address] PCP - General Internal Medicine 12/11/23 Paul Watt DO [address] [place] [address] [email or web address] Insurance Assigned Provider 02/04/18 08/12/18 Paul Watt DO [address] [place] [address] Insurance Assigned Provider 04/08/19 06/12/20 Karlie Wright MD, MPH [address] [address] [email or web address] Insurance Assigned Provider 05/16/21 09/12/21 documented as of this encounter Additional Source Comments The information contained in this document represents components of the legal health record. It is not the complete legal health record.[facility]
--- OUTSIDE RECORDS SUMMARY | 2025-10-10 11:02 | XMS_ITS | Encounter Summary ---
Author Organization [facility] Address 399 [facility] [address] [place] [address] Phone Care Team Providers Care Soil Scientist Name Role Phone Paul Watt DO Primary Care Provider [phone] Paul Watt DO Unavailable Karlie Wright MD, MPH Primary Care Provid er Karlie Wright MD, MPH Primary Care Provid er Paul Watt DO Unavailable Karlie Wright MD, MPH Unavailable [phone] Pcp, Unknown Primary Care Provider Unavailabl e Ailyn Fishman MD Primary Care Provid er Encounter Details Date Type Department Care Team (Late st Contact Info) Description 07/03/2018 Ancillary Orders Virtual Department [address] [place] [address] Willie Strong MD [address] [place] [address], [address] [address] [email or web address] Calculus of kidney Social History Tobacco Use [...] kidney documented in this encounter Care Teams Soil Scientist Relationship Specialty Start Date End Date Paul Watt DO [address] [place] [address] [email or web address] PCP - General Family Medicine 11/10/17 08/11/18 Karlie Wright MD, MPH [address] [place] [address] [email or web address] PCP - General Family Medicine 08/12/18 09/10/18 Karlie Wright MD, MPH [address] [place] [address] [email or web address] PCP - General Family Medicine 09/11/18 06/21/21 Pcp, Unknown PCP - General 06/22/21 12/10/23 Ailyn Fishman MD [address] [place] [address] PCP - General Internal Medicine 12/11/23 Paul Watt DO [address] [place] [address] [email or web address] Insurance Assigned Provider 02/04/18 08/12/18 Paul Watt DO [address] [place] [address] [email or web address] Insurance Assigned Provider 04/08/19 06/12/20 Karlie Wright MD, MPH [address] [place], [place] [id number] [email or web address] Insurance Assigned Provider 05/16/21 09/12/21 documented as of this encounter Additional Source Comments The information contained in this document represents components of the legal health record. It is not the complete legal health record.[facility]
== END 2025-10-07 09:39 | disposition home or self-care (01) ==
LOC: HO.HOSX 09:38
PROVIDERS: Visit Provider Physician Assistant
DX: M25.562 Pain in left knee (principal)
CPT/HCPCS: 73562

== ENCOUNTER 2025-10-07 10:50 | Outpatient (REF) | payer OTHER, SELFPAY ==
--- NOTE | ~2025-10-07 | US_ITS ---
CLINICAL HISTORY: N83.209 - Unspecified ovarian cyst, unspecified side Ultrasound of the female pelvis Comparison: US/SR - US PELVIC AND TRANSVAGINAL - 06/24/25 07:28 EDT Technique: Grayscale ultrasound with assistance of color Doppler. Transabdominal scanning performed for overall anatomy. Transvaginal scanning performed for better anatomic delineation. Findings: Anteverted uterus measures 8.0 x 3.0 x 3.9 cm. Mildly heterogeneous myometrium, several areas of the cystic change of inner myometrium. No fibroid is seen. Unremarkable endometrium, 3 mm in thickness, previously seen IUD is no longer visualized. Small nabothian cysts. Normal right ovary, 3.0 x 1.9 x 1.7 cm. No abnormal vascular flow. Unremarkable left ovary, 3.2 x 2.6 x 2.7 cm. No abnormal vascular flow. Simple paraovarian cyst 3.2 x 1.6 x 2.0 cm, previously 3.3 x 1.5 x 1.9 cm. No free fluid. Impression: 1. Stable left paraovarian cyst 3.2 cm. 2. Probable uterine adenomyosis. This document has been electronically signed by: Kayley Hewitt MD on 10/07/2025 13:41:20
--- OUTSIDE RECORDS SUMMARY | 2025-10-07 13:57 | XMS_ITS | Encounter Summary ---
Author Organization [facility] Address 399 [facility] [address] [place] [address] Phone Care Team Providers Care Product Support Engineer Name Role Phone Paul Watt DO Primary Care Provider [phone] Paul Watt DO Unavailable Karlie Wright MD, MPH Primary Care Provid er Karlie Wright MD, MPH Primary Care Provid er Paul Watt DO Unavailable Karlie Wright MD, MPH Unavailable [phone] Pcp, Unknown Primary Care Provider Unavailabl e Ailyn Fishman MD Primary Care Provid er Encounter Details Date Type Department Care Team (Late st Contact Info) Description 02/20/2018 Procedure Pass [facility], Ct Scan - [address] [address] Social History Tobacco Use Types Packs/Day Years [...] on filedocumented in this encounter Care Teams Product Support Engineer Relationship Specialty Start Date End Date Paul Watt DO [address] [place] [address] [email or web address] PCP - General Family Medicine 11/10/17 08/11/18 Karlie Wright MD, MPH [address] [place] [address] [email or web address] PCP - General Family Medicine 08/12/18 09/10/18 Karlie Wright MD, MPH [address] [place] [address] [email or web address] PCP - General Family Medicine 09/11/18 06/21/21 Pcp, Unknown PCP - General 06/22/21 12/10/23 Ailyn Fishman MD [address] [place] [address] PCP - General Internal Medicine 12/11/23 Paul Watt DO [address] [place] [address] [email or web address] Insurance Assigned Provider 02/04/18 08/12/18 Paul Watt DO [address] [place] [address] [email or web address] Insurance Assigned Provider 04/08/19 06/12/20 Karlie Wright MD, MPH [address] [address] [email or web address] Insurance Assigned Provider 05/16/21 09/12/21 documented as of this encounter Additional Source Comments The information contained in this document represents components of the legal health record. It is not the complete legal health record.[facility]
--- OUTSIDE RECORDS SUMMARY | 2025-10-07 13:57 | XMS_ITS | Encounter Summary ---
Author Organization [facility] Address [address] [address] Phone Care Team Providers Care Railroad Police Officer Name Role Phone Paul Watt DO Primary Care Provider [phone] Paul Watt DO Unavailable Karlie Wright MD, MPH Primary Care Provid er Karlie Wright MD, MPH Primary Care Provid er Paul Watt DO Unavailable Karlie Wright MD, MPH Unavailable [phone] Pcp, Unknown Primary Care Provider Unavailabl e Ailyn Fishman MD Primary Care Provid er Encounter Details Date Type Department Care Team (Late st Contact Info) Description 02/22/2018 Transcribe Orders [address] [address] Debra Forte, [facility] 29 [facility] [place] [address] Abdominal pain, unspecified abdominal location (Primary Dx) [...] EDT) Specimen Source/ Description STOOL STOOL STOOL [facility] Special Requests None [facility] DIRECT EXAM No parasites found by Trichrome Stain [facility] DIRECT EXAM NO PARASITES FOUND BY DIRECT OR CONCENTRATION METHODS [facility] Report Status 03/02/2018 FINAL [facility] Stool (Stool) 02/21/2018 9:0 0 AM EDT 02/22/2018 11:42 AM EDT us Debra Forte CNP LAB BODY FLUIDS AND S TOOL ORDERABLES Final Result Performing Organization Address City/[facility] Co de Phone Number [address] [address] * Ova and parasites, stool (02/17/2018 6:00 PM EDT) Specimen Source/ Description STOOL STOOL STOOL [facility] Special Requests None [facility] DIRECT EXAM No parasites found by Trichrome Stain [facility] DIRECT EXAM NO PARASITES FOUND BY DIRECT OR CONCENTRATION METHODS [facility] Report Status 03/02/2018 FINAL [facility] Stool (Stool) 02/17/2018 6:0 0 PM EDT 02/22/2018 11:41 AM EDT us Debra Forte CNP LAB BODY FLUIDS AND S TOOL ORDERABLES Final Result Performing Organization Address City/[facility] Co de Phone Number [address] [address] documented in this encounter Visit Diagnoses Diagnosis Abdominal pain, unspecified abdominal location- Primary documented in this encounter Care Teams Railroad Police Officer Relationship Specialty Start Date End Date Paul Watt DO [address] [place] [address] [email or web address] PCP - General Family Medicine 11/10/17 08/11/18 Karlie Wright MD, MPH [address] [place] [address] [email or web address] PCP - General Family Medicine 08/12/18 09/10/18 Karlie Wright MD, MPH [address] [place] [address] [email or web address] PCP - General Family Medicine 09/11/18 06/21/21 Pcp, Unknown PCP - General 06/22/21 12/10/23 Ailyn Fishman MD [address] [place] [address] PCP - General Internal Medicine 12/11/23 Paul Watt DO [address] [place] [address] [email or web address] Insurance Assigned Provider 02/04/18 08/12/18 Paul Watt DO [address] [place] [address] [email or web address] Insurance Assigned Provider 04/08/19 06/12/20 Karlie Wright MD, MPH [address] [place] [address] [email or web address] Insurance Assigned Provider 05/16/21 09/12/21 documented as of this encounter Additional Source Comments The information contained in this document represents components of the legal health record. It is not the complete legal health record.[facility]
--- OUTSIDE RECORDS SUMMARY | 2025-10-07 13:57 | XMS_ITS | Encounter Summary ---
Author Organization [facility] Address 399 [facility] [address] [place] [address] Phone Care Team Providers Care Studio Producer Name Role Phone Paul Watt DO Primary Care Provider [phone] Paul Watt DO Unavailable Karlie Wright MD, MPH Primary Care Provid er Karlie Wright MD, MPH Primary Care Provid er Paul Watt DO Unavailable Karlie Wright MD, MPH Unavailable [phone] Pcp, Unknown Primary Care Provider Unavailabl e Ailyn Fishman MD Primary Care Provid er Encounter Details Date Type Department Care Team (Late st Contact Info) Description 02/20/2018 Procedure Pass [facility], Ct Scan - [address] [address] Social History Tobacco Use Types Packs/Day Years [...] on filedocumented in this encounter Care Teams Studio Producer Relationship Specialty Start Date End Date Paul Watt DO [address] [place] [address] [email or web address] PCP - General Family Medicine 11/10/17 08/11/18 Karlie Wright MD, MPH [address] [place] [address] [email or web address] PCP - General Family Medicine 08/12/18 09/10/18 Karlie Wright MD, MPH [address] [place] [address] [email or web address] PCP - General Family Medicine 09/11/18 06/21/21 Pcp, Unknown PCP - General 06/22/21 12/10/23 Ailyn Fishman MD [address] [place] [address] PCP - General Internal Medicine 12/11/23 Paul Watt DO [address] [place] [address] [email or web address] Insurance Assigned Provider 02/04/18 08/12/18 Paul Watt DO [address] [place] [address] [email or web address] Insurance Assigned Provider 04/08/19 06/12/20 Karlie Wright MD, MPH [address] [address] [email or web address] Insurance Assigned Provider 05/16/21 09/12/21 documented as of this encounter Additional Source Comments The information contained in this document represents components of the legal health record. It is not the complete legal health record.[facility]
--- OUTSIDE RECORDS SUMMARY | 2025-10-07 13:57 | XMS_ITS | Encounter Summary ---
Author Organization [facility] Address 399 [facility] [address] [place] [address] Phone Care Team Providers Care Manager Medicaid Name Role Phone Paul Watt DO Primary Care Provider [phone] Paul Watt DO Unavailable Karlie Wright MD, MPH Primary Care Provid er Karlie Wright MD, MPH Primary Care Provid er Paul Watt DO Unavailable Karlie Wright MD, MPH Unavailable [phone] Pcp, Unknown Primary Care Provider Unavailabl e Ailyn Fishman MD Primary Care Provid er Encounter Details Date Type Department Care Team (Late st Contact Info) Description 02/14/2018 Transcribe Orders [address] [address] Paul Watt DO [address] [place] [address] [place] [address] [email or web address] Social History Tobacco Use Types Packs/Day Years [...] on filedocumented in this encounter Care Teams Manager Medicaid Relationship Specialty Start Date End Date Paul Watt DO [address] [place] [address] [email or web address] PCP - General Family Medicine 11/10/17 08/11/18 Karlie Wright MD, MPH [address] [place] [address] [email or web address] PCP - General Family Medicine 08/12/18 09/10/18 Karlie Wright MD, MPH [address] [place] [address] [email or web address] PCP - General Family Medicine 09/11/18 06/21/21 Pcp, Unknown PCP - General 06/22/21 12/10/23 Ailyn Fishman MD [address] [place] [address] PCP - General Internal Medicine 12/11/23 Paul Watt DO [address] [place] [address] [email or web address] Insurance Assigned Provider 02/04/18 08/12/18 Paul Watt DO [address] [place] [address] [email or web address] Insurance Assigned Provider 04/08/19 06/12/20 Karlie Wright MD, MPH [address] [place] [address] [email or web address] Insurance Assigned Provider 05/16/21 09/12/21 documented as of this encounter Additional Source Comments The information contained in this document represents components of the legal health record. It is not the complete legal health record.[facility]
--- OUTSIDE RECORDS SUMMARY | 2025-10-07 13:57 | XMS_ITS | Encounter Summary ---
Author Organization [facility] Address [address] [facility] [address] [place] [address] Phone Care Team Providers Care Director Of Institutional Research Name Role Phone Paul Watt DO Primary Care Provider [phone] Paul Watt DO Unavailable Karlie Wright MD, MPH Primary Care Provid er Karlie Wright MD, MPH Primary Care Provid er Paul Watt DO Unavailable Karlie Wright MD, MPH Unavailable [phone]- [phone] Pcp, Unknown Primary Care Provider Unavailabl e Ailyn iFshman MD Primary Care Provid er Encounter Details Date Type Department Care Team (Late st Contact Info) Description 04/17/2018 Procedure Pass [facility] Endoscopy Admitting Dept Virtual Department [address] [place] [address] Social History Tobacco Use Types Packs/Day Years [...] on filedocumented in this encounter Care Teams Director Of Institutional Research Relationship Specialty Start Date End Date Paul Watt DO [address] [place] [address] [email or web address] PCP - General Family Medicine 11/10/17 08/11/18 Karlie Wright MD, MPH [address] [place] [address] [email or web address] PCP - General Family Medicine 08/12/18 09/10/18 Karlie Wright MD, MPH [address] [place] [address] [email or web address] PCP - General Family Medicine 09/11/18 06/21/21 Pcp, Unknown PCP - General 06/22/21 12/10/23 Ailyn Fishman MD [address] [place] [address] PCP - General Internal Medicine 12/11/23 Paul Watt DO [address] [place] [address] [email or web address] Insurance Assigned Provider 02/04/18 08/12/18 Paul Watt DO [address] [place] [phone] Insurance Assigned Provider 04/08/19 06/12/20 Karlie Wright MD, MPH [address] [address] [email or web address] Insurance Assigned Provider 05/16/21 09/12/21 documented as of this encounter Additional Source Comments The information contained in this document represents components of the legal health record. It is not the complete legal health record.[facility]
--- OUTSIDE RECORDS SUMMARY | 2025-10-07 13:58 | XMS_ITS | Clinical Summary ---
Author Organization [facility] Address [address] [address] Phone Care Team Providers Care Brazing Machine Setter Name Role Phone Ailyn Fishman MD Primary [...] 43 Admit Type: Outpatient Gender: Female Room: [place] [address] Referring MD: PAUL WATT MD Exam Type: [...] 12:14 PM Procedure Code(s): --- Professional --- 23924, Colonoscopy, flexible; with biopsy, single or multiple --- Technical --- 00011, Colonoscopy, flexible; with biopsy, single or multiple Diagnosis Code(s): --- Professional --- Z85.038, Personal history of other malignant neoplasm of largeintestine Z98.0, Intestinal bypass and anastomosis status D12.5, Benign neoplasm of sigmoid colon --- Technical --- Z85.038, Personal history of other malignant neoplasm of largeintestine Z98.0, Intestinal bypass and anastomosis status D12.5, Benign neoplasm of sigmoid colon CPT copyright 2016 [employer]. All rights reserved. The codes documented in this report are preliminary and upon binder roller reviewmay be revised to meet current compliance requirements. [address] [place] [address] us Paul Watt DO GI PROCEDURE ORDERABLES Final Re sult from Last 3 Months or Most Recently Relevant to Health Maintenance Insurance [facility] [place] [employer] [facility] [employer] [place] [place] [employer] [facility] [employer] [address] [place] [address] [place] [address] BENEFITS ADMINISTRATORS [employer] [place] [place] [employer] Care Teams Brazing Machine Setter Relationship Specialty Start Date End Date Ailyn Fishman MD [address] [place] [address] PCP - General Internal Medicine 12/11/23 Additional Source Comments The information contained in this document represents components of the legal health record. It is not the complete legal health record.[facility]
--- OUTSIDE RECORDS SUMMARY | 2025-10-07 13:58 | XMS_ITS | Encounter Summary ---
Author Organization [facility] Address [address] [facility] [address] [place] [address] Phone Care Team Providers Care Preschool Substitute Teacher Name Role Phone Paul Watt DO Primary Care Provider [phone] Paul Watt DO Unavailable Karlie Wright MD, MPH Primary Care Provid er Karlie Wright MD, MPH Primary Care Provid er Paul Watt DO Unavailable Karlie Wright MD, MPH Unavailable [phone] Pcp, Unknown Primary Care Provider Unavailabl e Ailyn Fishman MD Primary Care Provid er Encounter Details Date Type Department Care Team (Late st Contact Info) Description 07/03/2018 Ancillary Orders Virtual Department [address] [place] [address] Willie Strong MD [address] [place] [address], [address] [address] [email or web address] Calculus of kidney [...] kidney documented in this encounter Care Teams Preschool Substitute Teacher Relationship Specialty Start Date End Date Paul Watt DO [address] [place] [address] [email or web address] PCP - General Family Medicine 11/10/17 08/11/18 Karlie Wright MD, MPH [address] [place] [address] [email or web address] PCP - General Family Medicine 08/12/18 09/10/18 Karlie Wright MD, MPH [address] [place] [address] [email or web address] PCP - General Family Medicine 09/11/18 06/21/21 Pcp, Unknown PCP - General 06/22/21 12/10/23 Ailyn Fishman MD [address] [place] [address] PCP - General Internal Medicine 12/11/23 Paul Watt DO [address] [place] [address] [email or web address] Insurance Assigned Provider 02/04/18 08/12/18 Paul Watt DO [address] [place] [address] [email or web address] Insurance Assigned Provider 04/08/19 06/12/20 Karlie Wright MD, MPH [address] [place], [place] [phone] [email or web address] Insurance Assigned Provider 05/16/21 09/12/21 documented as of this encounter Additional Source Comments The information contained in this document represents components of the legal health record. It is not the complete legal health record.[facility]
--- OUTSIDE RECORDS SUMMARY | 2025-10-07 13:58 | XMS_ITS | Encounter Summary ---
Author Organization [facility] Address [address] [facility] [address] [place] [address] Phone Care Team Providers Care Voice Network Engineer Name Role Phone Paul Watt DO Primary Care Provider [phone] Paul Watt DO Unavailable Karlie Wright MD, MPH Primary Care Provid er Karlie Wright MD, MPH Primary Care Provid er Paul Watt DO Unavailable Karlie Wright MD, MPH Unavailable [phone] Pcp, Unknown Primary Care Provider Unavailabl e Ailyn Fishman MD Primary Care Provid er Encounter Details Date Type Department Care Team (Latest Contact Info) Description 01/20/2018 Ancillary Orders Virtual Department [address] [place] [address] Taras Rivers MD [address] [place] [address] [address] [address] [email or web address] 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) documented in this encounter Care Teams Voice Network Engineer Relationship Specialty Start Date End Date Paul Watt DO [address] [place] [address] [email or web address] PCP - General Family Medicine 11/10/17 08/11/18 Karlie Wright MD, MPH [address] [place] [address] [email or web address] PCP - General Family Medicine 08/12/18 09/10/18 Karlie Wright MD, MPH [address] [place] [address] [email or web address] PCP - General Family Medicine 09/11/18 06/21/21 Pcp, Unknown PCP - General 06/22/21 12/10/23 Ailyn Fishman MD [address] [place] [address] PCP - General Internal Medicine 12/11/23 Paul Watt DO [address] [place] [address] [email or web address] Insurance Assigned Provider 02/04/18 08/12/18 Paul Watt DO [address] [place] [address] Insurance Assigned Provider 04/08/19 06/12/20 Karlie Wright MD, MPH [address] [place] [address] [email or web address] Insurance Assigned Provider 05/16/21 09/12/21 documented as of this encounter Additional Source Comments The information contained in this document represents components of the legal health record. It is not the complete legal health record.[facility]
== END 2025-10-07 10:51 | disposition home or self-care (01) ==
LOC: HO.US 10:50
PROVIDERS: PCP Physician Assistant; Visit Provider Obstetrics & Gynecology
DX: N83.202 Unspecified ovarian cyst, left side (principal); M17.32 Unilateral post-traumatic osteoarthritis, left knee
CPT/HCPCS: 20610; 76830; 76856; J0665; J1100; J2003

== ENCOUNTER → 2025-10-07 10:53 | Outpatient (BNV) | payer OTHER, SELFPAY | PROVIDERS: PCP Physician Assistant; Visit Provider Radiology Diagnostic Radiology | DX: M17.12 Unilateral primary osteoarthritis, left knee (principal) | CPT/HCPCS: 73562 ==

== ENCOUNTER 2025-10-07 14:05 | Outpatient (AMB) | payer OTHER, SELFPAY ==
--- NOTE | 2025-10-07 14:12 | A.OFFVIS_ITS ---
Vital Signs 10/07/25 14:18 Height 5 ft 9 in Weight 220 lb BMI 32.5 Intake Visit Reasons: New Prob-Lt knee Pain and swollen Intake Note: Katlyn is a 50 year old female who presents today as an established patient, new problem visit to evaluate left knee. Today patient reports her pain presented the beginning of last week. She has soreness after she moved quickly while in bed. Complaints of swelling however this has improved. History of left knee injection. Allergies shrimp (SHRIMP) Allergy (Severe, Verified 10/07/25 14:21) Anaphylaxis adhesive Allergy (Intermediate, Verified 10/07/25 14:21) Rash latex (LATEX) Allergy (Intermediate, Verified 10/07/25 14:21) RASH Penicillins Allergy (Intermediate, Verified 10/07/25 14:21) Itching Sulfa (Sulfonamide Antibiotics) (SULFA (SULFONAMIDE ANTIBIOTICS)) Allergy (Intermediate, Verified 10/07/25 14:21) HIVES levofloxacin (From LEVAQUIN) Adverse Reaction (Severe, Verified 10/07/25 14:21) AGITATION morphine (MORPHINE) Adverse Reaction (Severe, Verified 10/07/25 14:21) HEADACHES HPI HPI New Prob-Lt knee Pain and swollen: Details: 50-year-old female who presents to the office today for a follow-up left knee pain. I had seen her a little over a year ago for left knee pain and an MRI was ordered which show degenerative arthritic changes along with meniscus tearing. We had treated this conservatively with steroid injections which have been helpful. Approximately 1 week ago she twisted her leg awkwardly in bed and she felt worsening pain and swelling. [facility] Medical History (Updated 10/07/25 @ 14:29 by Africa Choi PA-C) Cellulitis of great toe Nail disorder Traumatic subungual ecchymosis of right great toe Injury of right great toe Personal history of colon cancer Family history of breast cancer Physical exam Sinus infection Ovarian cyst GERD (gastroesophageal reflux disease) IUD (intrauterine device) in place History of blood transfusion Medullary sponge kidney Asthma History of seizure Seasonal allergies RADHA (obstructive sleep apnea) History of chemotherapy (~2012) Hx of radiation therapy (~2012) Recent bereavement Left arm pain Neck pain Retrognathia Vaginal discharge Rash Subconjunctival hemorrhage of left eye Upper respiratory tract infection Hemorrhoids with complication Myalgia Right wrist pain Right shoulder pain Screen for STD (sexually transmitted disease) Retained tampon COVID-19 Conjunctivitis Well woman exam Breast pain Shortness of breath PVC (premature ventricular contraction) PAC (premature atrial contraction) Colon cancer (~2013) DVT (deep venous thrombosis) Heart palpitations Shortness of breath Surgical History History of kidney surgery Hx of colonoscopy History of esophagogastroduodenoscopy (EGD) H/O knee surgery History of colon surgery Family History Mother High blood pressure COPD (chronic obstructive pulmonary disease) History of four vessel coronary artery bypass graft Mental health disorder Father High blood pressure Cancer Maternal Grandfather Colon cancer Paternal Aunt Colon cancer Social History Housing: House Are you a primary manager progressive care to a significant other at home: No Do you presently have visiting nurse or other home services: No Alcohol intake: current Alcohol intake frequency: a few times a month Alcohol type: wine Patient Tobacco Use Status: Former Tobacco user Tobacco use type: Smokeless Tobacco e-Cigarette/Vaping Use: Currently Using Second Hand Smoke Exposure: Yes service: No Current occupational status: employed 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 Surgical scar present. She has full range of motion with crepitus. Mild tenderness over the medial joint line. Calf is supple and nontender neurovascularly intact. Office Procedures AMB Joint Injection/Aspiration Joint Injection/Aspiration Primary Site: Left Knee Prep: site was prepped using aseptic technique, ethochloride spray was applied and injection warnings given Injected: 40 mg of, Decadron, with 3 mL of, 1% plain Lidocaine, 0.25% Bupivacaine and in the joint Approach Used: anterolateral Procedure: The patient tolerated the procedure well and there was some relief with the local anesthesia Coding 52098 - Glenohumeral/Tronchanteric Bursa/Intraarticular Procedure code (CPT) selection complete Results Reviewed Results Reviewed: X-rays of the left knee obtained in the office today and reviewed by me show medial compartment arthritis, patellofemoral arthritis and orthopedic hardware present. Assessment & Plan Assessment & Plan (1) Post-traumatic osteoarthritis of left knee: Code(s): M17.32 - Unilateral post-traumatic osteoarthritis, left knee Category: Medical Plan: We discussed options today, which include steroid injection. The patient did consent to move forward with the injection, which was tolerated well.? I recommended rest, ice and elevation and OTC antiinflammatories prn for discomfort. If symptoms persist over the next 6-8 weeks, they will contact our office, otherwise, prn Orders: Orders XR knee LT 3V Today M25.562 - Pain in left knee Coding Level of Care Code Complex visit Add On G2211 Diagnoses Post-traumatic osteoarthritis of left knee M17.32 CPT Codes Coding - Joint 7: 69617 - Glenohumeral/Tronchanteric Bursa/Intraarticular ([id number])
[2025-10-07 14:18] VITALS: BMI 32.5
--- OUTSIDE RECORDS SUMMARY | 2025-10-07 17:30 | XMS_ITS | Data Portability ---
Author Organization [facility] [address] Address [address] [place] [address] Care Team Providers Care Supervisor [employer] Name Role Phone LAISHA MICHAEL Primary Care Provider Assessment No assessment recorded. Plan of Treatment Reminders Order Date Submit Date Provider Last Modified By Organization Details Last Modified Time Details Appointments None recorded. Lab None recorded. Referral None recorded. Procedures None recorded. Surgeries None recorded. Imaging None recorded. Medication Orders clobetasol 0.05 % topical ointment 2023 024 [id number], [address] [place], [address], 16:28:28 Patient TargetsNo targets recorded. Patient Instructions Encounter Date Encounter Id Patient Instructions Last Modified By Organization Details Last Modified Time 10/18/2024 [id number] dermatitis: care instructions [email or web address] Not available 10/18/2024 16:28:26 Reason for Referral None Reported. Problems Name Problem SNOMED Code Status Onset Date Resolution Date Notes Provider Name and Address Organization Details Recorded Time Depressiv e disorder 16129920 Active CONRAD Bullock [facility] 16:18:56 Malignant neoplasm of colon 228040690 Completed 202310/18/2024 Removal Reason: surgery CONRAD Keane [facility] [place], [address] , CONRAD Dumont [facility] 16:27:43 Problem Notes None recorded. Medical Equipment None Reported. Allergies Allergen ID Allergen Name Allergen Category Reaction Reaction Severity Criticality Documentation Date Start Date Code Code System Note Provider Name and Address Organization Details Recorded Time 0331167 Substance with sulfonami de structure and antibacte rial mechanism of action (substanc e) medicatio n hives Not available Not available 10/18/2024 33714 8003 SNOMED Ольга Olmedo null, [place] - [facility] 4 16:16:05 9832593 Augmentin medicatio n abdominal pain Not available Not available 10/18/2024 60866 2 RxNorm Ольга Olmedo null, PA - [...] temperature Respiratory rate Heart rate Oxygen saturation Systolic And Diastolic Provider Name and Address Organization Details Last Updated DateTime 175.26 cm 29.5 kg/m2 71753.4 7 g 98 [degF] 18 /min 77 /min 98 % 138/92 mm[Hg] Ольга Honorio PA - [facility] 16:22:06 Social History Question Answer Notes LastModified by [employer] Details LastModified Time Tobacco Smoking Status Current Every Day Smoker vape Ольга cooper, [place] - [facility] 10/18/2024 16:20:08 Have You Had A Flu Shot This Season? Yes [email or web address] Information not available 10/18/2024 Have You Recently Traveled Abroad? No [email or web address] Information not available 10/18/2024 Sex: Unknown Functional Status Question Answer Note LastModified by [employer] Details LastModified Time How many times per week do you consume alcohol? 3-4 times per week [email or web address] Information not available 10/18/2024 Do you use any illicit or recreational drugs? No [email or web address] Information not available 10/18/2024 What is your level of alcohol consumption? Occasional [email or web address] Information not available 10/18/2024 Mental Status None recorded. Family History Relationship Description Onset Age of this Age Resolved Age Notes LastModified by Organization Details LastModified Time Father No current problems or disability [email or web address] Not available 10/18 16:19:00 Mother No current problems or disability [email or web address] Not available 10/18 16:19:00 Medical History No medical history recorded. Gynecological HistoryNo gynecological history recorded. Obstetrics History GPAL:G 0 P 0 0 0 0 Past Encounters Encounter ID Performer Location Encounter Start Date Encounter Closed Date Diagnosis/Indication Diagnosis SNOMED-CT Code Diagnosis ICD10 Code Diagnosis IMO Codes Diagnosis Note [id number] [address] [place] [address] 10/10/2020 16:22:23 10/10/2020 18:18:23 [id number] CONRAD Keaen [address] [place] [address] 10/18/2024 16:09:58 10/18/2024 16:29:23 Contact dermatitis 41938828 L25.9 Based on your presentati on and [...] Name 10/18/2024 1 [employer]UE [employer] [place] [id number] Katlyn Shaikh [id number] Katlyn Shaikh Notes Date Note Type Note Provider Name and Address Organization Details Recorded Time 10/18/2024 text/html 49 y/o female here with several red, irritated spots on her belly button, upper back, and L leg. Has happened in the past, wants to make sure it isn't ringworm CONRAD Keane [address] [place], [address], [place] - [facility] 10/18/2024 16:31:25 OBGyn Episode No OBEpisode recorded.
== END 2025-10-07 14:49 | disposition home or self-care (01) ==
LOC: HO.HOS 14:06
PROVIDERS: PCP Physician Assistant; Visit Provider Physician Assistant
DX: M17.32 Unilateral post-traumatic osteoarthritis, left knee (principal)
CPT/HCPCS: 20610

== ENCOUNTER 2025-10-08 15:55 | Outpatient (REF) | payer OTHER, SELFPAY ==
--- NOTE | ~2025-10-08 | MR_ITS ---
EXAMINATION: MR BREAST WITHOUT AND WITH CONTRAST, BILATERAL CLINICAL INFORMATION: 6 month follow-up breast MRI for 7 mm enhancing area in the central inner right breast 5 cm from the nipple. A possible ultrasound correlate was seen at 3:00 4 cm from the nipple ultrasound-guided core needle biopsy was performed with benign pathology. MRI 6 month follow-up for clip correlation was recommended. COMPARISON: Comparison is made with relevant prior imaging. TECHNIQUE: MR imaging of the breast was performed using T1, T2 and fat saturated techniques. Dynamic multiphase imaging was also performed after the administration of intravenous gadolinium contrast agent. Computer generated 3D reconstruction and enhancement kinetic analysis was ulitized by the radiologist in the interpretation of this examination. FINDINGS: Breast composition: Heterogeneous fibroglandular breast tissue Background parenchymal enhancement: Moderate LEFT BREAST: No suspicious enhancing masses or areas of non mass enhancement. No axillary or internal mammary adenopathy. RIGHT BREAST: Previously seen enhancement in the central inner right breast is no longer seen. Marker clip within this area from recent benign needle core biopsy. No suspicious enhancing masses or areas of non mass enhancement. No axillary or internal mammary adenopathy. Limited views of the chest and abdomen are unremarkable. MR/MR breast BI wo/w con IMPRESSION: No MR specific evidence of malignancy. ASSESSMENT: LEFT BREAST: BI-RADS 1-Negative RIGHT BREAST: BI-RADS 2-Benign RECOMMENDATIONS: Yearly screening mammography Yearly Breast MRI screening surveillance. Electronically signed by: Alethea Palacio DO 10/10/2025 09:17 AM [facility]
--- OUTSIDE RECORDS SUMMARY | 2025-10-08 17:12 | XMS_ITS | Encounter Summary ---
Author Organization [facility] Address [address] [facility] [address] [place] [address] Phone Care Team Providers Care Yard Engineer Name Role Phone Paul Watt DO Primary Care Provider [phone] Paul Watt DO Unavailable Karlie Wright MD, MPH Primary Care Provid er Karlie Wright MD, MPH Primary Care Provid er Paul Watt DO Unavailable Karlie Wright MD, MPH Unavailable [phone] Pcp, Unknown Primary Care Provider Unavailabl e Ailyn Fishman MD Primary Care Provid er Encounter Details Date Type Department Care Team (Late st Contact Info) Description 04/17/2018 Procedure Pass [facility] Endoscopy Admitting Dept Virtual Department [address] [place] [address] Social History Tobacco Use Types Packs/Day Years [...] on filedocumented in this encounter Care Teams Yard Engineer Relationship Specialty Start Date End Date Paul Watt DO [address] [place] [address] [email or web address] PCP - General Family Medicine 11/10/17 08/11/18 Karlie Wright MD, MPH [address] [place] [address] [email or web address] PCP - General Family Medicine 08/12/18 09/10/18 Karlie Wright MD, MPH [address] [place] [address] [email or web address] PCP - General Family Medicine 09/11/18 06/21/21 Pcp, Unknown PCP - General 06/22/21 12/10/23 Ailyn Fishman MD [address] [place] [address] PCP - General Internal Medicine 12/11/23 Paul Watt DO [address] [place] [address] [email or web address] Insurance Assigned Provider 02/04/18 08/12/18 Paul Watt DO [address] [place] [address] Insurance Assigned Provider 04/08/19 06/12/20 Karlie Wright MD, MPH [address] [address] [email or web address] Insurance Assigned Provider 05/16/21 09/12/21 documented as of this encounter Additional Source Comments The information contained in this document represents components of the legal health record. It is not the complete legal health record.[facility]
--- OUTSIDE RECORDS SUMMARY | 2025-10-08 17:12 | XMS_ITS | Encounter Summary ---
Author Organization [facility] Address [address] [facility] [address] [place] [address] Phone Care Team Providers Care Contract Negotiator Name Role Phone Paul Watt DO Primary Care Provider Paul Watt DO Unavailable Karlie Wright MD, MPH Primary Care Provid er Karlie Wright MD, MPH Primary Care Provid er Paul Watt DO Unavailable Karlie Wright MD, MPH Unavailable [phone] Pcp, Unknown Primary Care Provider Unavailabl e Ailyn Fishman MD Primary Care Provid er Encounter Details Date Type Department Care Team (Late st Contact Info) Description 02/20/2018 Procedure Pass [facility], Ct Scan - [address] [address] Social History Tobacco Use Types Packs/Day Years [...] on filedocumented in this encounter Care Teams Contract Negotiator Relationship Specialty Start Date End Date Paul Watt DO [address] [place] [address] [email or web address] PCP - General Family Medicine 11/10/17 08/11/18 Karlie Wright MD, MPH [address] [place] [address] [email or web address] PCP - General Family Medicine 08/12/18 09/10/18 Karlie Wright MD, MPH [address] [place] [address] [email or web address] PCP - General Family Medicine 09/11/18 06/21/21 Pcp, Unknown PCP - General 06/22/21 12/10/23 Ailyn Fishman MD [address] [place] [address] PCP - General Internal Medicine 12/11/23 Paul Watt DO [address] [place] [address] [email or web address] Insurance Assigned Provider 02/04/18 08/12/18 Paul Watt DO [address] [place] [address] [email or web address] Insurance Assigned Provider 04/08/19 06/12/20 Karlie Wright MD, MPH [address] [address] [email or web address] Insurance Assigned Provider 05/16/21 09/12/21 documented as of this encounter Additional Source Comments The information contained in this document represents components of the legal health record. It is not the complete legal health record.[facility]
--- OUTSIDE RECORDS SUMMARY | 2025-10-08 17:12 | XMS_ITS | Encounter Summary ---
Author Organization [facility] Address [address] [facility] [address] [place] [address] Phone Care Team Providers Care Rib Cloth Knitter Name Role Phone Paul Watt DO Primary Care Provider [phone] Paul Watt DO Unavailable Karlie Wright MD, MPH Primary Care Provid er Karlie Wright MD, MPH Primary Care Provid er Paul Watt DO Unavailable Karlie Wright MD, MPH Unavailable [phone]- [phone] Pcp, Unknown Primary Care Provider Unavailabl e Ailyn Fishman MD Primary Care Provid er Encounter Details Date Type Department Care Team (Latest Contact Info) Description 01/20/2018 Ancillary Orders Virtual Department [address] [place] [address] Taras Rivers MD [address] [place] [address] [address] [address] [email or web address] 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) documented in this encounter Care Teams Rib Cloth Knitter Relationship Specialty Start Date End Date Paul Wtat DO [address] [place] [address] [email or web address] PCP - General Family Medicine 11/10/17 08/11/18 Karlie Wright MD, MPH [address] [place] [address] [email or web address] PCP - General Family Medicine 08/12/18 09/10/18 Karlie Wright MD, MPH [address] [place] [address] [email or web address] PCP - General Family Medicine 09/11/18 06/21/21 Pcp, Unknown PCP - General 06/22/21 12/10/23 Ailyn Fishman MD [address] [place] [address] PCP - General Internal Medicine 12/11/23 Paul Watt DO [address] [place] [address] [email or web address] Insurance Assigned Provider 02/04/18 08/12/18 Paul Watt DO [address] [place] [address] Insurance Assigned Provider 04/08/19 06/12/20 Karlie Wright MD, MPH [address] [place] [address] [email or web address] Insurance Assigned Provider 05/16/21 09/12/21 documented as of this encounter Additional Source Comments The information contained in this document represents components of the legal health record. It is not the complete legal health record.[facility]
--- OUTSIDE RECORDS SUMMARY | 2025-10-08 17:12 | XMS_ITS | Encounter Summary ---
Author Organization [facility] Address [address] [facility] [address] [place] [address] Phone Care Team Providers Care University Manager Name Role Phone Paul Watt DO Primary Care Provider [phone] Paul Watt DO Unavailable Karlie Wright MD, MPH Primary Care Provid er Karlie Wright MD, MPH Primary Care Provid er Paul Watt DO Unavailable Karlie Wright MD, MPH Unavailable [phone] Pcp, Unknown Primary Care Provider Unavailabl e Ailyn Fishman MD Primary Care Provid er Encounter Details Date Type Department Care Team (Late st Contact Info) Description 02/20/2018 Procedure Pass [facility], Ct Scan - [address] [address] Social History Tobacco Use Types Packs/Day Years [...] on filedocumented in this encounter Care Teams University Manager Relationship Specialty Start Date End Date Paul Watt DO [address] [place] [address] [email or web address] PCP - General Family Medicine 11/10/17 08/11/18 Karlie Wright MD, MPH [address] [place] [address] [email or web address] PCP - General Family Medicine 08/12/18 09/10/18 Karlie Wright MD, MPH [address] [place] [address] [email or web address] PCP - General Family Medicine 09/11/18 06/21/21 Pcp, Unknown PCP - General 06/22/21 12/10/23 Ailyn Fishman MD [address] [place] [address] PCP - General Internal Medicine 12/11/23 Paul Watt DO [address] [place] [address] [email or web address] Insurance Assigned Provider 02/04/18 08/12/18 Paul Watt DO [address] [place] [address] [email or web address] Insurance Assigned Provider 04/08/19 06/12/20 Karlie Wright MD, MPH [address] [address] [email or web address] Insurance Assigned Provider 05/16/21 09/12/21 documented as of this encounter Additional Source Comments The information contained in this document represents components of the legal health record. It is not the complete legal health record.[facility]
--- OUTSIDE RECORDS SUMMARY | 2025-10-08 17:12 | XMS_ITS | Encounter Summary ---
Author Organization [facility] Address [address] [address] Phone Care Team Providers Care Chief Vendor Quality Name Role Phone Paul Watt DO Primary Care Provider [phone] Paul Watt DO Unavailable Karlie Wright MD, MPH Primary Care Provid er Karlie Wright MD, MPH Primary Care Provid er Paul Watt DO Unavailable Karlie Wright MD, MPH Unavailable [phone] Pcp, Unknown Primary Care Provider Unavailabl e Ailyn Fishman MD Primary Care Provid er Encounter Details Date Type Department Care Team (Late st Contact Info) Description 02/22/2018 Transcribe Orders [address] [address] Debra Forte, [facility] [address] [facility] [place] [address] Abdominal pain, unspecified abdominal location (Primary Dx) [...] EDT) Specimen Source/ Description STOOL STOOL STOOL [facility] Special Requests None [facility] DIRECT EXAM No parasites found by Trichrome Stain [facility] DIRECT EXAM NO PARASITES FOUND BY DIRECT OR CONCENTRATION METHODS [facility] Report Status 03/02/2018 FINAL [facility] Stool (Stool) 02/21/2018 9:0 0 AM EDT 02/22/2018 11:42 AM EDT us Debra Forte CNP LAB BODY FLUIDS AND S TOOL ORDERABLES Final Result Performing Organization Address City/[facility] Co de Phone Number [address] [address] * Ova and parasites, stool (02/17/2018 6:00 PM EDT) Specimen Source/ Description STOOL STOOL STOOL [facility] Special Requests None [facility] DIRECT EXAM No parasites found by Trichrome Stain [facility] DIRECT EXAM NO PARASITES FOUND BY DIRECT OR CONCENTRATION METHODS [facility] Report Status 03/02/2018 FINAL [facility] Stool (Stool) 02/17/2018 6:0 0 PM EDT 02/22/2018 11:41 AM EDT us Debra Forte CNP LAB BODY FLUIDS AND S TOOL ORDERABLES Final Result Performing Organization Address City/[facility] Co de Phone Number [address] [address] documented in this encounter Visit Diagnoses Diagnosis Abdominal pain, unspecified abdominal location- Primary documented in this encounter Care Teams Chief Vendor Quality Relationship Specialty Start Date End Date Paul Watt DO [address] [place] [address] [email or web address] PCP - General Family Medicine 11/10/17 08/11/18 Karlie Wright MD, MPH [address] [place] [address] [email or web address] PCP - General Family Medicine 08/12/18 09/10/18 Karlie Wright MD, MPH [address] [place] [address] [email or web address] PCP - General Family Medicine 09/11/18 06/21/21 Pcp, Unknown PCP - General 06/22/21 12/10/23 Ailyn Fishman MD [address] [place] [address] PCP - General Internal Medicine 12/11/23 Paul Watt DO [address] [place] [address] [email or web address] Insurance Assigned Provider 02/04/18 08/12/18 Paul Watt DO [address] [place] [address] [email or web address] Insurance Assigned Provider 04/08/19 06/12/20 Karlie Wright MD, MPH [address] [place] [address] [email or web address] Insurance Assigned Provider 05/16/21 09/12/21 documented as of this encounter Additional Source Comments The information contained in this document represents components of the legal health record. It is not the complete legal health record.[facility]
--- OUTSIDE RECORDS SUMMARY | 2025-10-08 17:14 | XMS_ITS | Clinical Summary ---
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 All rights reserved. The codes documented in this report are preliminary and upon controls engineer reviewmay be revised to meet current compliance requirements. [address] [place] [address] us Paul Watt DO GI PROCEDURE ORDERABLES Final Re sult from Last 3 Months or Most Recently Relevant to Health Maintenance Insurance [facility] [employer] ADMINISTRATORS [facility] [employer] ADMINISTRAT[employer] [facility] [employer] ADMINISTR[place] [address] [address] [place] [address] BENEFITS ADMINISTRATORS [employer] ADMINISTRATORS [employer]MINISTRAT[employer] Care Teams Vp Organizational Development Relationship Specialty Start Date End Date Ailyn Fishman MD [address] [place] [address] PCP - General Internal Medicine 12/11/23 Additional Source Comments The information contained in this document represents components of the legal health record. It is not the complete legal health record.[facility]
--- OUTSIDE RECORDS SUMMARY | 2025-10-08 17:14 | XMS_ITS | Encounter Summary ---
Author Organization [facility] Address [address] [facility] [address] [place] [address] Phone Care Team Providers Care Desk Clerks Supervisor Name Role Phone Paul Watt DO Primary Care Provider [phone] Paul Watt DO Unavailable Karlie Wright MD, MPH Primary Care Provid er Karlie Wright MD, MPH Primary Care Provid er Paul Watt DO Unavailable Karlie Wright MD, MPH Unavailable [phone] Pcp, Unknown Primary Care Provider Unavailabl e Ailyn Fishman MD Primary Care Provid er Encounter Details Date Type Department Care Team (Late st Contact Info) Description 07/03/2018 Ancillary Orders Virtual Department [address] [place] [address] Willie Strong MD [address] [place] [address], [address] [address] [email or web address] Calculus of kidney Social History Tobacco Use [...] kidney documented in this encounter Care Teams Desk Clerks Supervisor Relationship Specialty Start Date End Date Paul Watt DO [address] [place] [address] [email or web address] PCP - General Family Medicine 11/10/17 08/11/18 Karlie Wright MD, MPH [address] [place] [address] [email or web address] PCP - General Family Medicine 08/12/18 09/10/18 Karlie Wright MD, MPH [address] [place] [address] [email or web address] PCP - General Family Medicine 09/11/18 06/21/21 Pcp, Unknown PCP - General 06/22/21 12/10/23 Ailyn Fishman MD [address] [place] [address] PCP - General Internal Medicine 12/11/23 Paul Watt DO [address] [place] [address] [email or web address] Insurance Assigned Provider 02/04/18 08/12/18 Paul Watt DO [address] [place] [address] [email or web address] Insurance Assigned Provider 04/08/19 06/12/20 Karlie Wright MD, MPH [address] [place], [place] [address] [email or web address] Insurance Assigned Provider 05/16/21 09/12/21 documented as of this encounter Additional Source Comments The information contained in this document represents components of the legal health record. It is not the complete legal health record.[facility]
== END 2025-10-08 15:56 | disposition home or self-care (01) ==
LOC: HO.MRI 15:55
PROVIDERS: PCP Physician Assistant; Visit Provider Physician Assistant
DX: N63.10 Unspecified lump in the right breast, unspecified quadrant (principal); N63.20 Unspecified lump in the left breast, unspecified quadrant
CPT/HCPCS: 77049; A9585

== ENCOUNTER → 2025-10-08 16:02 | Outpatient (BNV) | payer OTHER, SELFPAY | PROVIDERS: PCP Physician Assistant; Visit Provider Internal Medicine | DX: N63.10 Unspecified lump in the right breast, unspecified quadrant (principal) | CPT/HCPCS: 77049 ==

== ENCOUNTER 2025-10-29 07:52 | Outpatient (AMB) | payer OTHER, SELFPAY ==
--- NOTE | 2025-10-29 07:54 | MHC.OFFVIS ---
Vital Signs 10/29/25 08:00 Height 5 ft 9 in Weight 220 lb BMI 32.5 BP 124/82 Intake Visit Reasons: Ultra sound follow up Electric Well Logging Operator Required: No Information Interpreted: non-clinical & clinical Accompanied by: Self / Same As Patient Allergies shrimp (SHRIMP) Allergy (Severe, Verified 10/29/25 08:00) Anaphylaxis adhesive Allergy (Intermediate, Verified 10/29/25 08:00) Rash latex (LATEX) Allergy (Intermediate, Verified 10/29/25 08:00) RASH Penicillins Allergy (Intermediate, Verified 10/29/25 08:00) Itching Sulfa (Sulfonamide Antibiotics) (SULFA (SULFONAMIDE ANTIBIOTICS)) Allergy (Intermediate, Verified 10/29/25 08:00) HIVES levofloxacin (From LEVAQUIN) Adverse Reaction (Severe, Verified 10/29/25 08:00) AGITATION morphine (MORPHINE) Adverse Reaction (Severe, Verified 10/29/25 08:00) HEADACHES Post menopausal: Yes HPI Comments Details: Presenting for ultrasound follow up done on 10/07/2025 which showed the following: Anteverted uterus measures 8.0 x 3.0 x 3.9 cm. Mildly heterogeneous myometrium, several areas of the cystic change of inner myometrium. No fibroid is seen. Unremarkable endometrium, 3 mm in thickness, previously seen IUD is no longer visualized. Small nabothian cysts. Normal right ovary, 3.0 x 1.9 x 1.7 cm. No abnormal vascular flow. Unremarkable left ovary, 3.2 x 2.6 x 2.7 cm. No abnormal vascular flow. Simple paraovarian cyst 3.2 x 1.6 x 2.0 cm, previously 3.3 x 1.5 x 1.9 cm. No free fluid. Impression: 1. Stable left paraovarian cyst 3.2 cm. 2. Probable uterine adenomyosis. [facility] Medical History Neck pain Cellulitis of great toe Nail disorder Traumatic subungual ecchymosis of right great toe Injury of right great toe Personal history of colon cancer Family history of breast cancer Physical exam Sinus infection Ovarian cyst GERD (gastroesophageal reflux disease) IUD (intrauterine device) in place History of blood transfusion Medullary sponge kidney Asthma History of seizure Seasonal allergies RADHA (obstructive sleep apnea) History of chemotherapy (~2012) Hx of radiation therapy (~2012) Recent bereavement Left arm pain Retrognathia Vaginal discharge Rash Subconjunctival hemorrhage of left eye Upper respiratory tract infection Hemorrhoids with complication Myalgia Right wrist pain Right shoulder pain Screen for STD (sexually transmitted disease) Retained tampon COVID-19 Conjunctivitis Well woman exam Breast pain Shortness of breath PVC (premature ventricular contraction) PAC (premature atrial contraction) Colon cancer (~2012) DVT (deep venous thrombosis) Heart palpitations Shortness of breath Surgical History History of kidney surgery Hx of colonoscopy History of esophagogastroduodenoscopy (EGD) H/O knee surgery History of colon surgery Family History Mother High blood pressure COPD (chronic obstructive pulmonary disease) History of four vessel coronary artery bypass graft Mental health disorder Father High blood pressure Cancer Maternal Grandfather Colon cancer Paternal Aunt Colon cancer Social History Housing: House Are you a primary family day carer to a significant other at home: No Do you presently have visiting nurse or other home services: No Alcohol intake: current Alcohol intake frequency: a few times a month Alcohol type: wine Patient Tobacco Use Status: Former Tobacco user Tobacco use type: Smokeless Tobacco e-Cigarette/Vaping Use: Currently Using Second Hand Smoke Exposure: Yes service: No Current occupational status: employed 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 Current occupational exposures/hazards: No Cognitive needs: No Hearing needs: No Vision needs: No Female Reproductive History Menstrual Age of Menarche: 10 Review of Systems Const All systems reviewed & are unremarkable except as noted in HPI and below Reports as per HPI and Reports no additional complaints GI Reports no additional complaints Reports no additional complaints Assessment & Plan Assessment & Plan (1) Para-ovarian cyst: Comment: Left, stable Code(s): Q50.5 - Embryonic cyst of broad ligament Category: Medical Plan: Discussed with the patient the finding on ultrasound stable simple paraovarian cyst, recommended follow-up in 9 months. Pelvic ultrasound Order placed. Instructions given the patient to call in case of pelvic pain, abnormal bleeding or any other concerns and to schedule an ultrasound follow-up appointment within 9 months. All questions answered, the patient verbalized understanding Orders: Orders US pelvic and transvaginal 9 Months Q50.5 - Embryonic cyst of broad ligament Coding Level of Care Code Est Pt Level 3 (46895) Diagnoses Para-ovarian cyst Q50.5
--- OUTSIDE RECORDS SUMMARY | 2025-10-29 07:55 | XMS_ITS | Encounter Summary ---
Author Organization [facility] Address [address] [facility] [address] [place] [address] Phone Care Team Providers Care Manager College Name Role Phone Paul Watt DO Primary Care Provider [phone] Paul Watt DO Unavailable Karlie Wright MD, MPH Primary Care Provid er Karlie Wright MD, MPH Primary Care Provid er Paul Watt DO Unavailable Karlie Wright MD, MPH Unavailable +- [phone] Pcp, Unknown Primary Care Provider Unavailabl e Ailyn Fishman MD Primary Care Provid er Encounter Details Date Type Department Care Team (Late st Contact Info) Description 04/17/2018 Procedure Pass [facility] Endoscopy Admitting Dept Virtual Department [address] [place] [address] Social History Tobacco Use Types Packs/Day Years [...] filedocumented in this encounter Care Teams Manager College Relationship Specialty Start Date End Date Paul Watt DO [address] [place] [address] [email or web address] PCP - General Family Medicine 11/10/17 08/11/18 Karlie Wright MD, MPH [address] [place] [address] [email or web address] PCP - General Family Medicine 08/12/18 09/10/18 Karlie Wright MD, MPH [address] [place] [address] [email or web address] PCP - General Family Medicine 09/11/18 06/21/21 Pcp, Unknown PCP - General 06/22/21 12/10/23 Ailyn Fishman MD [address] [place] [address] PCP - General Internal Medicine 12/11/23 Paul Watt DO [address] [place] [address] [email or web address] Insurance Assigned Provider 02/04/18 08/12/18 Paul Watt DO [address] [place] [address] Insurance Assigned Provider 04/08/19 06/12/20 Karlie Wright MD, MPH [address] [address] [email or web address] Insurance Assigned Provider 05/16/21 09/12/21 documented as of this encounter Additional Source Comments The information contained in this document represents components of the legal health record. It is not the complete legal health record.[facility]
--- OUTSIDE RECORDS SUMMARY | 2025-10-29 07:55 | XMS_ITS | Encounter Summary ---
Author Organization [facility] Address [address] [address] Phone Care Team Providers Care Cardiology Coordinator Name Role Phone Paul Watt DO Primary Care Provider [phone] Paul Watt DO Unavailable Karlie Wright MD, MPH Primary Care Provid er Karlie Wright MD, MPH Primary Care Provid er Paul Watt DO Unavailable Karlie Wright MD, MPH Unavailable [phone] Pcp, Unknown Primary Care Provider Unavailabl e Ailyn Fishman MD Primary Care Provid er Encounter Details Date Type Department Care Team (Late st Contact Info) Description 02/22/2018 Transcribe Orders [address] [address] Debra Forte, [facility] [address] [facility] [place] [address] [email or web address] Abdominal pain, unspecified abdominal location (Primary Dx) [...] EDT) Specimen Source/ Description STOOL STOOL STOOL [facility] Special Requests None [facility] DIRECT EXAM No parasites found by Trichrome Stain [facility] DIRECT EXAM NO PARASITES FOUND BY DIRECT OR CONCENTRATION METHODS [facility] Report Status 03/02/2018 FINAL [facility] Stool (Stool) 02/21/2018 9:0 0 AM EDT 02/22/2018 11:42 AM EDT us Debra Forte CNP LAB BODY FLUIDS AND S TOOL ORDERABLES Final Result Performing Organization Address City/[facility] Co de Phone Number [address] [address] * Ova and parasites, stool (02/17/2018 6:00 PM EDT) Specimen Source/ Description STOOL STOOL STOOL [facility] Special Requests None [facility] DIRECT EXAM No parasites found by Trichrome Stain [facility] DIRECT EXAM NO PARASITES FOUND BY DIRECT OR CONCENTRATION METHODS [facility] Report Status 03/02/2018 FINAL [facility] Stool (Stool) 02/17/2018 6:0 0 PM EDT 02/22/2018 11:41 AM EDT us Debra Forte CNP LAB BODY FLUIDS AND S TOOL ORDERABLES Final Result Performing Organization Address City/[facility] Co de Phone Number [address] [address] documented in this encounter Visit Diagnoses Diagnosis Abdominal pain, unspecified abdominal location- Primary documented in this encounter Care Teams Cardiology Coordinator Relationship Specialty Start Date End Date Paul Watt DO [address] [place] [address] [email or web address] PCP - General Family Medicine 11/10/17 08/11/18 Karlie Wright MD, MPH [address] [place] [address] [email or web address] PCP - General Family Medicine 08/12/18 09/10/18 Karlie Wright MD, MPH [address] [place] [address] [email or web address] PCP - General Family Medicine 09/11/18 06/21/21 Pcp, Unknown PCP - General 06/22/21 12/10/23 Ailyn Fishman MD [address] [place] [address] PCP - General Internal Medicine 12/11/23 Paul Watt DO [address] [place] [address] [email or web address] Insurance Assigned Provider 02/04/18 08/12/18 Paul Watt DO [address] [place] [address] [email or web address] Insurance Assigned Provider 04/08/19 06/12/20 Karlie Wright MD, MPH [address] [place] [address] [email or web address] Insurance Assigned Provider 05/16/21 09/12/21 documented as of this encounter Additional Source Comments The information contained in this document represents components of the legal health record. It is not the complete legal health record.[facility]
--- OUTSIDE RECORDS SUMMARY | 2025-10-29 07:55 | XMS_ITS | Encounter Summary ---
Author Organization [facility] Address [address] [facility] [address] [place] [address] Phone Care Team Providers Care Welding Setter Name Role Phone Paul Watt DO Primary Care Provider [phone] Paul Watt DO Unavailable Karlie Wright MD, MPH Primary Care Provid er Karlie Wright MD, MPH Primary Care Provid er Paul Watt DO Unavailable Karlie Wright MD, MPH Unavailable [phone] Pcp, Unknown Primary Care Provider Unavailabl e Ailyn Fishman MD Primary Care Provid er Encounter Details Date Type Department Care Team (Late st Contact Info) Description 02/20/2018 Procedure Pass [facility], Ct Scan - [address] [address] Social History Tobacco Use Types Packs/Day Years [...] on filedocumented in this encounter Care Teams Welding Setter Relationship Specialty Start Date End Date Paul Watt DO [address] [place] [address] [email or web address] PCP - General Family Medicine 11/10/17 08/11/18 Karlie Wright MD, MPH [address] [place] [address] [email or web address] PCP - General Family Medicine 08/12/18 09/10/18 Karlie Wright MD, MPH [address] [place] [address] [email or web address] PCP - General Family Medicine 09/11/18 06/21/21 Pcp, Unknown PCP - General 06/22/21 12/10/23 Ailyn Fishman MD [address] [place] [address] PCP - General Internal Medicine 12/11/23 Paul Watt DO [address] [place] [address] [email or web address] Insurance Assigned Provider 02/04/18 08/12/18 Paul Watt DO [address] [place] [address] [email or web address] Insurance Assigned Provider 04/08/19 06/12/20 Karlie Wright MD, MPH [address] [address] [email or web address] Insurance Assigned Provider 05/16/21 09/12/21 documented as of this encounter Additional Source Comments The information contained in this document represents components of the legal health record. It is not the complete legal health record.[facility]
--- OUTSIDE RECORDS SUMMARY | 2025-10-29 07:55 | XMS_ITS | Encounter Summary ---
Author Organization [facility] Address [address] [facility] [address] [place] [address] Phone Care Team Providers Care [employer] Coxswain Name Role Phone Paul Watt DO Primary Care Provider [phone] Paul Watt DO Unavailable Karlie Wright MD, MPH Primary Care Provid er Karlie Wright MD, MPH Primary Care Provid er Paul Watt DO Unavailable Karlie Wright MD, MPH Unavailable [phone] Pcp, Unknown Primary Care Provider Unavailabl e Ailyn Fishman MD Primary Care Provid er Encounter Details Date Type Department Care Team (Latest Contact Info) Description 01/20/2018 Ancillary Orders Virtual Department [address] [place] [address] Taras Rivers MD [address] [place] [address] [address] [address] [email or web address] 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) documented in this encounter Care Teams [employer] Coxswain Relationship Specialty Start Date End Date Paul Watt DO [address] [place] [address] [email or web address] PCP - General Family Medicine 11/10/17 08/11/18 Karlie Wright MD, MPH [address] [place] [address] [email or web address] PCP - General Family Medicine 08/12/18 09/10/18 Karlie Wright MD, MPH [address] [place] [address] [email or web address] PCP - General Family Medicine 09/11/18 06/21/21 Pcp, Unknown PCP - General 06/22/21 12/10/23 Ailyn Fishman MD [address] [place] [address] PCP - General Internal Medicine 12/11/23 Paul Watt DO [address] [place] [address] [email or web address] Insurance Assigned Provider 02/04/18 08/12/18 Paul Watt DO [address] [place] [address] Insurance Assigned Provider 04/08/19 06/12/20 Karlie Wright MD, MPH [address] [place] [address] [email or web address] Insurance Assigned Provider 05/16/21 09/12/21 documented as of this encounter Additional Source Comments The information contained in this document represents components of the legal health record. It is not the complete legal health record.[facility]
--- OUTSIDE RECORDS SUMMARY | 2025-10-29 07:55 | XMS_ITS | Encounter Summary ---
Author Organization [facility] Address [address] [facility] [address] [place] [address] Phone Care Team Providers Care Balance Wheel Hand Filer Name Role Phone Paul Watt DO Primary Care Provider [phone] Paul Watt DO Unavailable Karlie Wright MD, MPH Primary Care Provid er Karlie Wright MD, MPH Primary Care Provid er Paul Watt DO Unavailable Karlie Wright MD, MPH Unavailable [phone] Pcp, Unknown Primary Care Provider Unavailabl e Ailyn Fishman MD Primary Care Provid er Encounter Details Date Type Department Care Team (Late st Contact Info) Description 02/20/2018 Procedure Pass [facility], Ct Scan - [address] [address] Social History Tobacco Use Types Packs/Day Years [...] on filedocumented in this encounter Care Teams Balance Wheel Hand Filer Relationship Specialty Start Date End Date Paul Watt DO [address] [place] [address] [email or web address] PCP - General Family Medicine 11/10/17 08/11/18 Karlie Wright MD, MPH [address] [place] [address] [email or web address] PCP - General Family Medicine 08/12/18 09/10/18 Karlie Wright MD, MPH [address] [place] [address] [email or web address] PCP - General Family Medicine 09/11/18 06/21/21 Pcp, Unknown PCP - General 06/22/21 12/10/23 Ailyn Fishman MD [address] [place] [address] PCP - General Internal Medicine 12/11/23 Paul Watt DO [address] [place] [address] [email or web address] Insurance Assigned Provider 02/04/18 08/12/18 Paul Watt DO [address] [place] [address] [email or web address] Insurance Assigned Provider 04/08/19 06/12/20 Karlie Wright MD, MPH [address] [address] [email or web address] Insurance Assigned Provider 05/16/21 09/12/21 documented as of this encounter Additional Source Comments The information contained in this document represents components of the legal health record. It is not the complete legal health record.[facility]
--- OUTSIDE RECORDS SUMMARY | 2025-10-29 07:55 | XMS_ITS | Encounter Summary ---
Author Organization [facility] Address [address] [facility] [address] [place] [address] Phone Care Team Providers Care Field Marketing Manager Name Role Phone Paul Watt DO Primary Care Provider [phone] Paul Watt DO Unavailable Karlie Wright MD, MPH Primary Care Provid er Karlie Wright MD, MPH Primary Care Provid er Paul Watt DO Unavailable Karlie Wright MD, MPH Unavailable [phone] Pcp, Unknown Primary Care Provider Unavailabl e Ailyn Fishman MD Primary Care Provid er Encounter Details Date Type Department Care Team (Late st Contact Info) Description 02/14/2018 Transcribe Orders [address] [address] Paul Watt DO [address] [place] [address] [place] [address] [email or web address] Social History Tobacco Use Types Packs/Day Years [...] on filedocumented in this encounter Care Teams Field Marketing Manager Relationship Specialty Start Date End Date Paul Watt DO [address] [place] [address] [email or web address] PCP - General Family Medicine 11/10/17 08/11/18 Karlie Wright MD, MPH [address] [place] [address] [email or web address] PCP - General Family Medicine 08/12/18 09/10/18 Karlie Wright MD, MPH [address] [place] [address] [email or web address] PCP - General Family Medicine 09/11/18 06/21/21 Pcp, Unknown PCP - General 06/22/21 12/10/23 Ailyn Fishman MD [address] [place] [address] PCP - General Internal Medicine 12/11/23 Paul Watt DO [address] [place] [address] [email or web address] Insurance Assigned Provider 02/04/18 08/12/18 Paul Watt DO [address] [place] [address] [email or web address] Insurance Assigned Provider 04/08/19 06/12/20 Karlie Wright MD, MPH [address] [place] [address] [email or web address] Insurance Assigned Provider 05/16/21 09/12/21 documented as of this encounter Additional Source Comments The information contained in this document represents components of the legal health record. It is not the complete legal health record.[facility]
--- OUTSIDE RECORDS SUMMARY | 2025-10-29 07:55 | XMS_ITS | Data Portability ---
Author Organization [facility] Address [address] [place] [address] Care Team Providers Care Mannequin Molder Name Role Phone LAISHA MICHAEL Primary Care Provider Assessment No assessment recorded. Plan of Treatment Reminders Order Date Submit Date Provider Last Modified By Organization Details Last Modified Time Details Appointments None recorded. Lab None recorded. Referral None recorded. Procedures None recorded. Surgeries None recorded. Imaging None recorded. Medication Orders clobetasol 0.05 % topical ointment 2023 024 [id number], [address] [place], [address], 16:28:28 Patient TargetsNo targets recorded. Patient Instructions Encounter Date Encounter Id Patient Instructions Last Modified By Organization Details Last Modified Time 10/18/2024 [id number] dermatitis: care instructions [email or web address] Not available 10/18/2024 16:28:26 Reason for Referral None Reported. Problems Name Problem SNOMED Code Status Onset Date Resolution Date Notes Provider Name and Address Organization Details Recorded Time Depressiv e disorder 27811368 Active [facility] Bullock [facility] 16:18:56 Malignant neoplasm of colon 471139700 Completed 202310/18/2024 Removal Reason: surgery CONRAD Keane [facility] [place], [address] , CONRAD Dumont [facility] 16:27:43 Problem Notes None recorded. Medical Equipment None Reported. Allergies Allergen ID Allergen Name Allergen Category Reaction Reaction Severity Criticality Documentation Date Start Date Code Code System Note Provider Name and Address Organization Details Recorded Time 3078736 Substance with sulfonami de structure and antibacte rial mechanism of action (substanc e) medicatio n hives Not available Not available 10/18/2024 81599 8003 SNOMED Ольга Olmedo null, [place] - [facility] 4 16:16:05 9880539 Augmentin medicatio n abdominal pain Not available Not available 10/18/2024 51542 2 RxNorm Ольга Olmedo null, [place] - [...] Last Updated DateTime 175.26 cm 29.5 kg/m2 58548.4 7 g 98 [degF] 18 /min 77 /min 98 % 138/92 mm[Hg] Ольга Honorio [place] - [facility] 16:22:06 Social History Question Answer Notes LastModified by [employer] Details LastModified Time Tobacco Smoking Status Current Every Day Smoker vape Ольга cooper, [place] - [facility] 10/18/2024 16:20:08 Have You Had A Flu Shot This Season? Yes [email or web address] Information not available 10/18/2024 Have You Recently Traveled Abroad? No [email or web address] Information not available 10/18/2024 Sex: Unknown Functional Status Question Answer Note LastModified by [employer] Details LastModified Time How many times per week do you consume alcohol? 3-4 times per week [email or web address] Information not available 10/18/2024 Do you use any illicit or recreational drugs? No [email or web address] Information not available 10/18/2024 What is your level of alcohol consumption? Occasional [email or web address] Information not available 10/18/2024 Mental Status None recorded. Family History Relationship Description Onset Age of this Age Resolved Age Notes LastModified by Organization Details LastModified Time Father No current problems or disability [email or web address] Not available 10/18 16:19:00 Mother No current problems or disability [email or web address] Not available 10/18 16:19:00 Medical History No medical history recorded. Gynecological HistoryNo gynecological history recorded. Obstetrics History GPAL:G 0 P 0 0 0 0 Past Encounters Encounter ID Performer Location Encounter Start Date Encounter Closed Date Diagnosis/Indication Diagnosis SNOMED-CT Code Diagnosis ICD10 Code Diagnosis IMO Codes Diagnosis Note [id number] [address] [place] [address] 10/10/2020 16:22:23 10/10/2020 18:18:23 [id number] CONRAD Keane [address] [facility] [place] [address] 10/18/2024 16:09:58 10/18/2024 16:29:23 Contact dermatitis 40286944 L25.9 Based on your presentati on and [...] Name 10/18/2024 1 [employer] [place] [id number] Katlyn Shaikh [id number] [id number] Katlyn Shaikh Notes Date Note Type Note Provider Name and Address Organization Details Recorded Time 10/18/2024 text/html 49 y/o female here with several red, irritated spots on her belly button, upper back, and L leg. Has happened in the past, wants to make sure it isn't ringworm CONRAD Keane [address] [place], [address], [place] - [facility] 10/18/2024 16:31:25 OBGyn Episode No OBEpisode recorded.
--- OUTSIDE RECORDS SUMMARY | 2025-10-29 07:56 | XMS_ITS | Patient Health Record ---
Author Organization [facility] Address [address] [place] [address] Care Team Providers Care Aircraft Metalsmith Name Role Phone Holly SMITH, Ailyn Primary Care Provider Unavail able Migdalia Luis Unavailable [phone] Allergies Allergen (clinical drug ingredient) Drug/Non Drug [...] years Encounters Encounter Location Date Provider Diagnosis [facility] [place] [address] [place] [address] 09/11/2025 Migdalia Luis Plan Of Treatment Pending Test Test Name Order Date *Liver Function Test (LFT) 06/02/2021 *Liver Function Test (LFT) 07/01/2021 X ray : Foot, right 3V 06/02/2021 Insurance Providers Payer Name Payer Address Payer Phone Subscriber Number Group Number Insured Name Patient Relationship to Insured Coverage Start Date Coverage End Date Blue Benefits [address] [address] [place] [address] [id number] Katlyn Shaikh Self - patient is the insured Medical (General) History Medical History History ICD Code Anemia asthma Cancer Kidney disease Numbness Neuropathy Sciatica Chicken pox Joint implants/screws Transfusions Surgical History Surgery Date(Month/Year) knee surgery, left / complication: blood clot/DVT 2006 colon cancer 2013 portacath placement 2012 Ingrown Toe Nail 2000
--- OUTSIDE RECORDS SUMMARY | 2025-10-29 07:56 | XMS_ITS | Encounter Summary ---
Author Organization [facility] Address 399 [facility] [address] [place] [address] Phone Care Team Providers Care Swine Nutritionist Name Role Phone Paul Watt DO Primary Care Provider [phone] Paul Watt DO Unavailable Karlie Wright MD, MPH Primary Care Provid er Karlie Wright MD, MPH Primary Care Provid er Paul Watt DO Unavailable Karlie Wright MD, MPH Unavailable [phone] Pcp, Unknown Primary Care Provider Unavailabl e Ailyn Fishman MD Primary Care Provid er Encounter Details Date Type Department Care Team (Late st Contact Info) Description 07/03/2018 Ancillary Orders Virtual Department [address] [place] [address] Willie Strong MD [address] [place] [address], [address] [address] [email or web address] Calculus of kidney Social History Tobacco Use [...] kidney documented in this encounter Care Teams Swine Nutritionist Relationship Specialty Start Date End Date Paul Watt DO [address] [place] [address] [email or web address] PCP - General Family Medicine 11/10/17 08/11/18 Karlie Wright MD, MPH [address] [place] [address] [email or web address] PCP - General Family Medicine 08/12/18 09/10/18 Karlie Wright MD, MPH [address] [place] [address] [email or web address] PCP - General Family Medicine 09/11/18 06/21/21 Pcp, Unknown PCP - General 06/22/21 12/10/23 Ailyn Fishman MD [address] [place] [address] PCP - General Internal Medicine 12/11/23 Paul Watt DO [address] [place] [address] [email or web address] Insurance Assigned Provider 02/04/18 08/12/18 Paul Watt DO [address] [place] [address] [email or web address] Insurance Assigned Provider 04/08/19 06/12/20 Karlie Wright MD, MPH [address] [place], [place] [phone] [email or web address] Insurance Assigned Provider 05/16/21 09/12/21 documented as of this encounter Additional Source Comments The information contained in this document represents components of the legal health record. It is not the complete legal health record.[facility]
--- OUTSIDE RECORDS SUMMARY | 2025-10-29 07:56 | XMS_ITS | Clinical Summary ---
Author Organization [facility] Address [address] [address] Phone Care Team Providers Care Manager Labor Relations Name Role Phone Ailyn Fishman MD Primary [...] 43 Admit Type: Outpatient Gender: Female Room: [place] [address] Referring MD: PAUL WATT MD Exam Type: [...] 12:14 PM Procedure Code(s): --- Professional --- 25264, Colonoscopy, flexible; with biopsy, single or multiple --- Technical --- 65329, Colonoscopy, flexible; with biopsy, single or multiple Diagnosis Code(s): --- Professional --- Z85.038, Personal history of other malignant neoplasm of largeintestine Z98.0, 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 All rights reserved. The codes documented in this report are preliminary and upon architectural practice manager reviewmay be revised to meet current compliance requirements. [address] [place] [id number] [place] Paul Watt DO GI PROCEDURE ORDERABLES Final Re sult from Last 3 Months or Most Recently Relevant to Health Maintenance Insurance [facility] [employer] [facility] [employer] [facility] [employer] [address] [place] [address] [place] [address] [employer]MIN[employer] Care Teams Manager Labor Relations Relationship Specialty Start Date End Date Ailyn Fishman MD [address] [place] [address] PCP - General Internal Medicine 12/11/23 Additional Source Comments The information contained in this document represents components of the legal health record. It is not the complete legal health record.[facility]
[2025-10-29 08:00] VITALS: BP 124/82; BMI 32.5
== END 2025-10-29 08:14 | disposition home or self-care (01) ==
LOC: HO.HWS 07:53
PROVIDERS: PCP Internal Medicine; Visit Provider Obstetrics & Gynecology
DX: Q50.5 Embryonic cyst of broad ligament (principal)
CPT/HCPCS: 99213